=== PATIENT | female | born 1955 | race Caucasian/White ===

== ENCOUNTER 2022-11-15 08:56 | Outpatient (OUT) | payer MEDICARE, OTHER, SELFPAY ==
--- NOTE | 2022-11-15 09:09 | US_ITS ---
[address] [address] Patient Name: ANNE MCFADDEN MRN: [id number] date: 1955 Sex: F Assigned Patient Location: US Current Patient Location: US Accession/Order Number: [id number] Exam Date: 11/15/2022 09:09 Report Date: 11/15/2022 10:19 At the request of: KERRI LUGO Procedure: US right upper quadrant EXAMINATION: US right upper quadrant HISTORY: Elevated Alkaline Phosphate Level R74.8 , chronic right upper quadrant pain COMPARISON: CT chest abdomen pelvis 08/05/2017 TECHNIQUE: Transabdominal evaluation of the right upper quadrant. FINDINGS: LIVER: Normal size and echotexture. Color Doppler demonstrates patent hepatic veins. PORTAL VEIN: Duplex Doppler demonstrates normal hepatopetal flow pattern with flow velocity averaging 26 cm/s. GALLBLADDER: Cholecystectomy. BILIARY: No abnormal dilation or stones. Common bile duct diameter is within normal limits. PANCREASE: No visible mass, abnormal atrophy, or duct dilation. KIDNEY: No hydronephrosis. No visible mass or stones. Size: 8.9 x 3.8 x 4.5 cm IMPRESSION: 1. No acute or suspicious findings to account for patient's symptoms. 2. Prior cholecystectomy. Electronically authenticated by: HUBER PAYTON Date: 11/15/2022 10:19
== END 2022-11-15 08:57 ==
LOC: US 09:02
PROVIDERS: PCP Nurse Practitioner; Visit Provider Nurse Practitioner
DX: R74.8 Abnormal levels of other serum enzymes (principal); Z90.49 Acquired absence of other specified parts of digestive tract
CPT/HCPCS: 76705

== ENCOUNTER 2023-05-23 11:47 | Emergency (ER) | payer MEDICARE, OTHER, SELFPAY ==
[2023-05-23 11:54] VITALS: BP 135/83; PULSE 69; RESP 18; TEMP 36.8; O2SAT 97; BMI 23.5
--- NOTE | 2023-05-23 12:03 | XR_ITS ---
The [address] [address] Patient Name: ANNE MCFADDEN MRN: [id number] date: 1955 Sex: F Assigned Patient Location: ER Current Patient Location: ER Accession/Order Number: [id number] Exam Date: 05/23/2023 12:12 Report Date: 05/23/2023 12:36 At the request of: SALAS POST Procedure: XR chest 1V EXAM: XR chest 1V at 1223 hours HISTORY: flu like symptoms for 2 days. COMPARISON: None. TECHNIQUE: AP upright portable chest x-ray FINDINGS: The heart is not enlarged and the vasculature is not distended. No acute infiltrate, effusion or pneumothorax is identified. The osseous structures are grossly intact. XR/XR chest 1V IMPRESSION: No acute infiltrate or evidence of cardiac decompensation. Direct comparison with a previous study would be helpful in determining the chronicity of these findings. Electronically authenticated by: DILSHAD KONG Date: 05/23/2023 12:36
--- NOTE | 2023-05-23 12:41 | ED.WEAKNESS1 ---
HPI - Weakness General Chief complaint: Weakness Stated complaint: FLU SYMPTOMS/CHEST PAIN/ SHORTNESS OF BREATH Time Seen by Provider: 05/23/23 12:41 Source: patient Mode of arrival: walk-in Limitations: no limitations Related Data Allergies Allergy/AdvReac Type Severity Reaction Status Date / Time Penicillins AdvReac Intermediate Verified 05/23/23 11:54 PFSH PFSH Social History Smoking status: Never smoker Exam Constitutional Vital Signs, click to edit/add: Last Vital Signs Temp 98.3 F 05/23/23 11:54 Pulse 69 05/23/23 11:54 Resp 18 05/23/23 11:54 BP 135/83 05/23/23 11:54 Pulse Ox 97 05/23/23 11:54 Course Vital Signs Vital signs: Vital Signs Temperature 98.3 F 05/23/23 11:54 Pulse Rate 69 05/23/23 11:54 Respiratory Rate 18 05/23/23 11:54 Blood Pressure 135/83 05/23/23 11:54 Pulse Oximetry 97 05/23/23 11:54 Temperature 98.3 F 05/23/23 11:54 Pulse Rate 69 05/23/23 11:54 Respiratory Rate 18 05/23/23 11:54 Blood Pressure 135/83 05/23/23 11:54 Pulse Oximetry 97 05/23/23 11:54 Discharge Plan Discharge Chief Complaint: Weakness Clinical Impression: Viremia Patient Disposition: Home, Self-Care Time of Disposition Decision: 12:42 Instructions: Viral Syndrome (ED) Additional Instructions: fluids, rest, fever reducers as discussed Stand Alone Forms: Portal Instructions Referrals: Yaritza Mueller NP [Primary Care Provider] - 1 week Discharge Date/Time: 05/23/23 13:14
== END 2023-05-23 13:14 | disposition home or self-care (01) ==
PROVIDERS: Emergency Provider Emergency Medicine Emergency Medical Services; PCP Nurse Practitioner
DX: B34.9 Viral infection, unspecified (principal)
CPT/HCPCS: 71045; 99283

== ENCOUNTER 2023-06-25 12:39 | Outpatient (OUT) | payer MEDICARE, OTHER, SELFPAY ==
--- OUTSIDE RECORDS SUMMARY | 2023-06-25 12:43 | XMS_ITS | CCD ---
Author Name Unknown Address [address] [place] [address] Organization [facility] Care Team Providers Care Hop Farmer Name Role Phone VICTORIA BURR Unavailable Unavailable PAVLOCK, YESSY MEJIA Unavailable Unavailable FANVICTORIA MCCLELLAND Unavailable Unavailable PAVLOCK, YESSY MEJIA Unavailable Unavailable PAN SANDERSON Primary Care Physician Nori Odonnell Unavailable Unavailable AICHHOLKERRI Tomlinson Primary Care Physician Wilmer Patino Unavailable Pocos, DO Cas Joe Referring Unavailable Pocos, DO Cas Joe Attending Unavailable Pocos, DO Cas Joe Admitting Unavailable Pocos, DO Cas Joe Admitting Unavailable Pocos, DO Cas Joe Referring Unavailable Pocos, DO Cas Joe Attending Unavailable KIMI, Jewels Consulting Unavailable KIMI, Jewels Consulting Unavailable KIMI, Jewels Consulting Unavailable KIMI, Jewels Consulting Unavailable KIMI, Jewels Consulting Unavailable KIMI, Jewels Consulting Unavailable KIMI, Jewels Consulting Unavailable KIMI, Jewels Consulting Unavailable KIMI, Jewels Consulting Unavailable KIMI, Jewels Consulting Unavailable Pocos, DO Cas Joe Admitting Unavailable Pocos, DO Cas Joe Referring Unavailable Pocos, DO Cas Joe Attending Unavailable AICHHOLZ, [place] ROUTEMAN KERRI Consulting Unavailable AICHHOLZ, [place] ROUTEMAN KERRI Primary Care Unavailable AICHHOLZ, [place] ROUTEMAN KERRI Admitting Unavailable AICHHOLZ, [place] ROUTEMAN KERRI Attending Unavailable AICHHOLZ, [place] ROUTEMAN KERRI Consulting Unavailable AICHHOLZ, [place] ROUTEMAN KERRI Primary Care Unavailable AICHHOLZ, [place] ROUTEMAN KERRI Admitting Unavailable AICHHOLZ, [place] ROUTEMAN KERRI Attending Unavailable AICHHOLZ, [place] ROUTEMAN KERRI Consulting Unavailable AICHHOLZ, [place] ROUTEMAN KERRI Primary Care Unavailable AICHHOLZ, [place] ROUTEMAN KERRI Admitting Unavailable AICHHOLZ, [place] ROUTEMAN KERRI Attending Unavailable AICHHOLZ, [place] ROUTEMAN KERRI Consulting Unavailable AICHHOLZ, [place] ROUTEMAN KERRI Primary Care Unavailable AICHHOLZ, [place] ROUTEMAN KERRI Admitting Unavailable AICHHOLZ, [place] ROUTEMAN KERRI Attending Unavailable AICHHOLZ, [place] ROUTEMAN KERRI Primary Care Unavailable DR CAS BAIG V Consulting Unavailable AICHHOLZ, [place] ROUTEMAN KERRI Admitting Unavailable AICHHOLZ, [place] ROUTEMAN KERRI Attending Unavailable AICHHOLZ, [place] ROUTEMAN KERRI Consulting Unavailable Allergies Allergy Classification Reported Allergen(s) Allergy Type Date of Onset Reaction(s) Facility (7 sources) Codeine; Translations: [CODEINE] Drug Allergy 7 nausea, vomiting [facility] (1 source) Penicillins; Translations: [PENICILLINS] Propensity to adverse reactions to drug (disorder) 7 [facility] (5 sources) Penicillin; Translations: [penicillin] Drug Allergy [facility] (1 source) Penicillin G Drug Allergy [facility] [employer] Other Medications Current Medications Medication Drug Class(es) Dates Sig (Normalized) Sig (Original) ashwaganda/dev root (3 sources) Start: 09-15-2021 ashwaganda/dev root ashwaganda/dev root, Oral, Daily Start Date: 09/15/21 Status: Ordered aspirin 81 mg delayed release oral tablet (2 sources) Platelet Aggregation Inhibitor, Nonsteroidal Anti-inflammatory Drug Start: 09-19-2021 Aspirin 81 mg Tab-EC 81 mg = 1 tab(s), Oral, BIDPC, # 60 tab(s), Refills(s) 0, Pharmacy: [facility] [facility], 170, cm, 09/18/21 6:21:00 EDT, Height/Length Dosing, 73, kg, 09/18/21 6:21:00 EDT, Weight Dosing Start Date: 09/19/21 Status: Ordered Start: 09-19-2021 Aspirin 81 mg Tab-EC 81 mg = 1 tab(s), Oral, BIDPC, # 60 tab(s), Refills(s) 0, Pharmacy: [facility] [facility] [address] 170, cm, 09/18/21 6:21:00 EDT, Height/Length Dosing, 73, kg, 09/18/21 6:21:00 EDT, Weight Dosing Start Date: 09/19/21 Status: Ordered cannabidiol (2 sources) Start: 09-15-2021 cannabidiol Oral, Daily, Prophylaxis Start Date: 09/15/21 Status: Ordered Cannabidiol (1 source) Start: 09-15-2021 cannabidiol Oral, Daily, Prophylaxis Start Date: 09/15/21 Status: Ordered docusate sodium 100 mg oral capsule (2 sources) Start: 09-19-2021 take 1 capsule by mouth twice daily as needed for constipation Colace 100 mg Cap 100 mg = 1 cap(s), Oral, BID, PRN for constipation, # 40 cap(s), Refills(s) 0, Pharmacy: [address], 170, cm, 09/18/21 6:21:00 EDT, Height/Length Dosing, 73, kg, 09/18/21 6:21:00 EDT, Weight Dosing Start Date: 09/19/21 Status: Ordered doxycycline monohydrate 100 mg oral capsule (1 source) Tetracycline-cla ss Drug Start: 05-02-2021 take 1 capsule by mouth every twelve hours Doxycycline Monohydrate 100 MG 1 capsule Orally every 12 hrs for 10 days Apr, Active Fish Oils (3 sources) Start: 09-15-2021 take 1000 mg by mouth once daily Fish Oil 1,000 mg, Oral, Daily, Refill(s) 0, Prophylaxis Start Date: 09/15/21 Status: Ordered Hydrochlorothiazide-2 5 mg 25 mg (1 source) take 1 tablet by mouth once daily Hydrochlorothiazide- 25 mg 25 mg 1 tablet Orally Once a day Active hydroxychloroquine sulfate 200 mg oral tablet (4 sources) Antimalarial, Antirheumatic Agent Start: 09-15-2021 take 1 tablet by mouth once daily hydroxychloroquine 200 mg Tab 200 mg = 1 tab(s), Oral, Daily, Refills(s) 0, Arthritis Start Date: 09/15/21 Status: Ordered Plaquenil 200 MG as directed Orally Active lamoTRIgine 200 mg oral tablet (4 sources) Mood Stabilizer, Anti-epileptic Agent Start: 09-15-2021 take 1 tablet by mouth twice daily lamotrigine 200 mg Tab 200 mg = 1 tab(s), Oral, BID, Refills(s) 0, Other (see comment) Start Date: 09/15/21 Status: Ordered LaMICtal 200 MG Orally bid for 30 day(s) Active magnesium hydroxide 80 mg/ml oral suspension (2 sources) Start: 09-20-2021 take 2.4 g by mouth twice daily magnesium hydroxide 8% Oral Susp 30 mL 2.4 gm, 30 mL, Oral, BID Constipation, Refill(s) 0 Start Date: 09/20/21 Status: Ordered Start: 09-20-2021 take 2.4 g by mouth twice daily magnesium hydroxide 8% Oral Susp 30 mL 2.4 gm, 30 mL, Oral, BID Constipation, Refill(s) 0 Start Date: 09/20/21 Status: Ordered oxyCODONE hydrochloride 5 mg oral tablet (2 sources) Opioid Agonist Start: 09-19-2021 take 1 tablet by mouth every six hours as needed for pain and pain, then take 1-2 tablets by mouth every four to six hours as needed for pain and pain, then take 1 tablet by mouth every six hours as needed for pain and pain oxyCODONE 5 mg Tab 5 mg = 1 tab(s), Oral, q6hr, 1-2 po q4-6 hrs prn pain Dx: M17.12, Z96.652 Duration: 7days Disregard si po q6hr prn pain, # 40 tab(s), Refills(s) 0, Pharmacy: [address], 170, cm, 09/18/21 6:21:00 EDT, Height/Length Dosing, 73, k... Start Date: 09/19/21 Status: Ordered QUEtiapine 25 mg oral tablet (3 sources) Atypical Antipsychotic Start: 09-19-2021 SEROquel 25 mg Tab Refills(s) 0 Start Date: 09/19/21 Status: Ordered SEROquel Active turmeric extract 500 mg oral capsule (3 sources) Start: 09-15-2021 take 1 capsule by mouth once daily turmeric 500 mg oral capsule 500 mg = 1 cap(s), Oral, Daily, Refills(s) 0, Prophylaxis Start Date: 09/15/21 Status: Ordered 24 hr venlafaxine 150 mg extended release oral capsule (4 sources) Serotonin and Norepinephrine Reuptake Inhibitor Start: 09-15-2021 take 1 capsule by mouth once daily venlafaxine 150 mg Cap-ER 150 mg = 1 cap(s), Oral, Daily, Refills(s) 0, Other (see comment) Start Date: 09/15/21 Status: Ordered Start: 09-15-2021 take 1 capsule by [facility] once daily venlafaxine 150 mg Cap-ER 150 mg = 1 cap(s), Oral, Daily, Refills(s) 0, Other (see comment) Start Date: 09/15/21 Status: Ordered Effexor XR 225 M G Orally once a day for 30 day(s) Active Vitamin B Complex oral capsule (3 sources) Start: 09-15-2021 take 1 capsule by mouth once daily Vitamin B Complex oral capsule 1 cap(s), Oral, Daily, Refill(s) 0, Prophylaxis Start Date: 09/15/21 Status: Ordered Vitamin C 1000 mg oral tablet (3 sources) Start: 09-15-2021 take 1 tablet by mouth once daily Vitamin C 1000 mg oral tablet 1,000 mg = 1 tab(s), Oral, Daily, Refills(s) 0, Prophylaxis Start Date: 09/15/21 Status: Ordered Vitamin D 1000 intl units (25 mcg) Tab (3 sources) Start: 09-15-2021 take 1 tablet by mouth once daily Vitamin D 1000 intl units (25 mcg) Tab 25 mcg = 1 tab(s), Oral, Daily, Refills(s) 0, Prophylaxis Start Date: 09/15/21 Status: Ordered Completed/Discontinued Medications Medication Drug Class(es) Dates Sig (Normalized) Sig (Original) metoprolol tartrate 25 mg oral tablet (6 sources) beta-Adrenergic [place] Start: 09-21-2021 End: 09-21-2021 Lopressor 25 mg oral tablet 25 mg = 1 tab(s), Tab, Oral, Start date 09/21/21 9:00:00 EDT Start Date: 09/21/21 Stop Date: 09/21/21 Status: Completed Start: 09-20-2021 End: 09-20-2021 Lopressor 25 mg oral tablet 25 mg = 1 tab(s), Tab, Oral, Start date 09/20/21 21:00:00 EDT Start Date: 09/20/21 Stop Date: 09/20/21 Status: Completed Start: 09-15-2021 take 1 tablet by emanuel th twice daily Lopressor 25 mg oral tablet 25 mg = 1 tab(s), Oral, BID, Refills(s) 0, High blood pressure Start Date: 09/15/21 Status: Ordered Start: 09-15-2021 take 1 tablet by emanuel th once daily Lopressor 25 mg oral tablet 25 mg = 1 tab(s), Oral, Daily, Refills(s) 0, High blood pressure Start Date: 09/15/21 Status: Ordered take 1 tablet by emanuel th every twelve hours Metoprolol Tartrate 25 MG 1 tablet with food Orally Twice a day Active Problems Active Problems Problem Classification Problem Date Documented Date Episodic/Chronic Deficiency and other anemia (1 source) Iron deficiency anemia; Translations: [Iron deficiency anemia, unspecified] Onset: 09-21-2021 Episodic Esophageal disorders (1 source) Gastroesophageal reflux disease without esophagitis; Translations: [Gastro-esophageal reflux disease without esophagitis] Onset: 09-21-2021 Chronic Essential hypertension (8 sources) Hypertensive disorder; Translations: [Essential hypertension] Onset: 09-20-2021 09-15-2021 Chronic Fluid and electrolyte disorders (1 source) Hypo-osmolality and or hyponatremia; Translations: [Hypo-osmolality and hyponatremia] Onset: 09-21-2021 Episodic Mood disorders (5 sources) Bipolar disorder; Translations: [Bipolar disorder, unspecified] Onset: 09-20-2021 09-15-2021 Chronic Osteoarthritis (3 sources) Arthritis 09-15-2021 Chronic Other connective tissue disease (1 source) Artificial knee joint present; Translations: [Presence of left artificial knee joint] Onset: 09-20-2021 Chronic Other non-traumatic joint disorders (1 source) Instability of joint of left knee; Translations: [Other instability, left knee] Episodic Other screening for suspected conditions (not mental disorders or infectious disease) (9 sources) Encounter for screening mammogram for malignant neoplasm of breast; Translations: [Abnormal results of thyroid function studies] Onset: 07-19-2022 Episodic Residual codes; unclassified (1 source) Procedure carried out on subject; Translations: [Encounter for prophylactic measures, unspecified] Onset: 09-21-2021 Episodic Residual codes; unclassified (1 source) Family history of malignant neoplasm of trachea, bronchus and lung; Translations: [FAM HX MALIG NEOPLSM TRACH BRON LNG] Onset: 10-28-2022 Episodic Residual codes; unclassified (1 source) Family history of malignant neoplasm of ovary; Translations: [FAM HX MALIGNANT NEOPLASM OVARY] Onset: 10-28-2022 Episodic Thyroid disorders (4 sources) Hypothyroidism, unspecified; Translations: [HYPOTHYROIDISM UNSPECIFIED] Onset: 10-25-2022 Chronic Unclassified (3 sources) Pain of joint of knee 09-15-2021 Past or Other Problems Problem Classification Problem Date Documented Da te Episodic/Chronic Immunizations and screening for infectious disease (1 source) Contact with and (suspected) exposure to other viral communicable diseases Onset: 05-02-2021 Resolved: 05-02-2021 Episodic Other lower respiratory disease (1 source) Other specified respiratory disorders Onset: 05-02-2021 Resolved: 05-02-2021 Episodic Residual codes; unclassified (1 source) Flushing; Translations: [FLUSHING] Onset: 07-23-2022 Episodic Unclassified (1 source) Cough R05.9 Onset: 05-02-2021 Resolved: 05-02-2021 Unclassified (1 source) Exposure to 2019 novel coronavirus; Translations: [Contact with and (suspected) exposure to COVID19] Urinary tract infections (1 source) Acute urinary tract infection; Translations: [Acute UTI] Episodic Results Test Name Value Interpretation Reference Range Facility GGTon 11-07-2022 Gamma glutamyl transferase [Catalytic activity/Vol] 122 U/L Critically high 8-55 [facility] Comment on above: Performed By: #### L CAROLA GGT #### [facility] [address] [address] [address] Sarah Beth Benton LIVER PROFILEon 11-07-2022 Albumin [Mass/Vol] 3.8 g/dL Normal 3.4-5.0 [facility] Comment on above: Performed By: #### L IVMABLE GGT #### [facility] [address] [address] [address] Sarah Beth Benton Albumin/Globulin [Mass ratio] 1.0 {ratio} Normal [facility] Comment on above: Performed By: #### L CAROLA, GGT #### [facility] [address] [address] [address] Sarah Beth Benton ALP [Catalytic activity/Vol] 119 U/L Critically high 46-116 [facility] Comment on above: Performed By: #### L IVER, GGT #### [facility] [address] [address] [address] Sarah Beth Benton ALT [Catalytic activity/Vol] 27 U/L Normal 14-59 [facility] Comment on above: Performed By: #### L IVER, GGT #### [facility] [address] [address] [address] Sarah Beth Benton AST [Catalytic activity/Vol] 25 U/L Normal 15-37 [facility] Comment on above: Performed By: #### L IVER, GGT #### [facility] [address] [place] [address] Dr. Sarah Beth Benton BILI, CONJUGATED 0.1 mg/dL Normal 0.0-0.2 [facility] Comment on above: Performed By: #### L IVER, GGT #### [facility] [address] [address] [address] Sarah Beth Benton Bilirubin [Mass/Vol] 0.5 mg/dL Normal 0.2-1.0 [facility] Comment on above: Performed By: #### L IVER, GGT #### [facility] [address] [place] [address] Dr. Sarah Beth Benton Globulin (S) [Mass/Vol] 3.8 g/dL Normal [facility] Comment on above: Performed By: #### L IVER, GGT #### [facility] [address] [address] [address] Sarah Beth Benton Protein [Mass/Vol] 7.6 g/dL Normal 6.4-8.2 [facility] Comment on above: Performed By: #### L IVER, GGT #### [facility] [address] [place] [address] Dr. Sarah Beth Benton FREE T4on 10-25-2022 Free T4 [Mass/Vol] 0.76 ng/dL Normal 0.76-1.46 [facility] Comment on above: Performed By: #### L IVER, GGT #### [facility] [address] [place] [address] Dr. Sarah Beth Benton HEMOGRAM AND PLATELon 2022 Hematocrit (Bld) [Volume fraction] 35.9 % Critically low 36.0-48.0 [facility] Comment on above: Performed By: #### L IVER, GGT #### [facility] [address] [place] [address] Dr. Sarah Beth Benton Hemoglobin (Bld) [Mass/Vol] 12.3 g/dL Normal 12.0-16.0 [facility] Comment on above: Performed By: #### L IVER, GGT #### [facility] [address] [place] [address] Dr. Sarah Beth Benton MCH (RBC) [Entitic mass] 30.6 pg Normal 26.7-34.0 [facility] Comment on above: Performed By: #### L IVER, GGT #### [facility] [address] [place] [address] Dr. Sarah Beth Benton MCHC (RBC) [Mass/Vol] 34.3 g/dL Normal 29.9-35.2 [facility] Comment on above: Performed By: #### L IVER, GGT #### [facility] [address] [place] [address] Dr. Sarah Beth Benton MCV (RBC) [Entitic vol] 89.3 fL Normal 81.0-99.0 [facility] Comment on above: Performed By: #### L IVER, GGT #### [facility] [address] [place] [address] Dr. Sarah Beth Benton PLT 356 103/ul Normal 150-450 [facility] Comment on above: Performed By: #### L IVER, GGT #### [facility] [address] [place] [address] Dr. Sarah Beth Benton RBC 4.02 106/ul Critically low 4.20-5.40 [facility] Comment on above: Performed By: #### L IVER, GGT #### [facility] [address] [address] [address] Sarah Beth Benton WBC 5.9 103/ul Normal 4.0-11.0 [facility] Comment on above: Performed By: #### L CAROLA GGT #### [facility] [address] [place], [place] [address] Dr. Sarah Beth Benton MG MAMM SCREEN 3D DOUG CADon 10-25-2022 MG MAMM SCREEN 3D DOUG CAD Patient: ANNE KEMP Exam Date: 10/25/2022 : 1955 Gender:F Ordering : MATT KERRI [place] ROUTEMAN Admission #: [id number] Family : Order #: [id number] CLICK HERE TO VIEW EXAM RADIOLOGY REPORT PROCEDURE: MAMMOGRAM SCREENING 3D BILATERAL CAD COMPARISON: DIGITIZED_MAMMO, 05/31/2010. MG MAMM SCREEN DOUG W CAD, 03/03/2019. INDICATIONS: Screening mammography Calculator Name NCI Breast Cancer Risk Assessment Tool 5 Year Breast Cancer Risk 1.50% Lifetime Breast Cancer Risk 5.20% Personal Breast Cancer No Personal Ovarian Cancer No Treatments None Family Cancers Sister with ovarian cancer at age 55; Father with lung cancer at age 69. LOCATION: [facility] BREAST COMPOSITION: Scattered areas fibroglandular density. FINDINGS: DIAGNOSTIC CATEGORY 1--NEGATIVE. NO CHANGE FROM COMPARISON ASSESSMENT. Scattered benign-appearing calcifications are present. RIGHT BREAST: No significant suspicious finding. LEFT BREAST: No significant suspicious finding. RECOMMENDATIONS: ROUTINE MAMMOGRAM AND CLINICAL EVALUATION IN 12 MONTHS. PLEASE NOTE: A NORMAL MAMMOGRAM DOES NOT EXCLUDE THE POSSIBILITY OF BREAST CANCER. A CLINICALLY SUSPICIOUS PALPABLE LUMP SHOULD BE BIOPSIED. Dictated by: Cas Baig MD on 10/26/2022 at 12:05 Approved by: Cas Baig MD on 10/26/2022 at 12:06 Normal [facility] PROF 14(COMP METB)on 023 Albumin [Mass/Vol] 3.8 g/dL Normal 3.4-5.0 [facility] Comment on above: Performed By: #### P THINT #### [facility] [address] [address] [address] Sarah Beth Benton Albumin/Globulin [Mass ratio] 1.0 {ratio} Normal [facility] Comment on above: Performed By: #### P THINT #### [facility] [address] [address] [address] Sarah Beth Benton ALP [Catalytic activity/Vol] 139 U/L Critically high 46-116 [facility] Comment on above: Performed By: #### P THINT #### [facility] [address] [address] [address] Sarah Beth Benton ALT [Catalytic activity/Vol] 29 U/L Normal 14-59 [facility] Comment on above: Performed By: #### P THINT #### [facility] [address] [address] [address] Sarah Beth Benton Anion gap [Moles/Vol] 10.2 mmol/L Normal [facility] Comment on above: Performed By: #### P THINT #### [facility] [address] [address] [address] Sarah Beth Benton AST [Catalytic activity/Vol] 23 U/L Normal 15-37 [facility] Comment on above: Performed By: #### P THINT #### [facility] [address] [address] [address] Sarah Beth Benton Bilirubin [Mass/Vol] 0.3 mg/dL Normal 0.2-1.0 [facility] Comment on above: Performed By: #### P THINT #### [facility] [address] [address] [address] Sarah Beth Benton Calcium [Mass/Vol] 9.3 mg/dL Normal 8.5-10.1 [facility] Comment on above: Performed By: #### P THINT #### [facility] [address] [address] [address] Sarah Beth Benton Chloride [Moles/Vol] 98 mmol/L Normal 98-107 [facility] Comment on above: Performed By: #### P THINT #### [facility] [address] [address] [address] Sarah Beth Benton CO2 [Moles/Vol] 30.7 mmol/L Normal 21.0-32.0 [facility] Comment on above: Performed By: #### P THINT #### [facility] [address] [address] [address] Sarah Beth Benton Creatinine [Mass/Vol] 0.86 mg/dL Normal 0.55-1.02 [facility] Comment on above: Performed By: #### P THINT #### [facility] [address] [address] [address] Sarah Beth Benton EGFR-AF ECUADOREAN >60 Normal >=60 [facility] Comment on above: Performed By: #### P THINT #### [facility] [address] [address] [address] Sarah Beth Benton EGFR-NON AF ECUADOREAN >60 Normal >=60 [facility] Comment on above: Performed By: #### P THINT #### [facility] [address] [place] [address] Dr. Sarah Beth Benton Globulin (S) [Mass/Vol] 3.8 g/dL Normal [facility] Comment on above: Performed By: #### P THINT #### [facility] [address] [place] [address] Dr. Sarah Beth Benton Glucose [Mass/Vol] 89 mg/dL Normal 74-106 [facility] Comment on above: Performed By: #### P THINT #### [facility] [address] [place] [address] Dr. Sarah Beth Benton Potassium [Moles/Vol] 3.9 mmol/L Normal 3.5-5.1 [facility] Comment on above: Performed By: #### P THINT #### [facility] [address] [address] [address] Sarah Beth Benton Protein [Mass/Vol] 7.6 g/dL Normal 6.4-8.2 [facility] Comment on above: Performed By: #### P THINT #### [facility] [address] [place] [address] Dr. Sarah Beth Benton Sodium [Moles/Vol] 135 mmol/L Critically low 136-145 [facility] Comment on above: Performed By: #### P THINT #### [facility] [address] [address] [address] Sarah Beth Benton Urea nitrogen [Mass/Vol] 17.0 mg/dL Normal 7.0-18.0 [facility] Comment on above: Performed By: #### P THINT #### [facility] [address] [place] [address] Dr. Sarah Beth Benton Urea nitrogen/Creatinine [Mass ratio] 19.8 mg/mg Normal [facility] Comment on above: Performed By: #### P THINT #### [facility] [address] [place] [address] Dr. Sarah Beth Benton TSHon 10-25-2022 TSH 2.754 uIU/mL Normal 0.358-3.[address] [facility] Comment on above: Performed By: #### P THINT #### [facility] [address] [place] [address] Dr. Sarah Beth Benton METANEPHRINES PLASMA FREEon 07-24-2022 Metanephrine, Pl 17.5 pg/mL Normal 0.0-88.0 [facility] Comment on above: Performed By: #### M ETANPF #### [facility] [address] [place] [address] Dr. Sarah Beth Benton Normetanephrine, Pl 90.0 pg/mL Normal 0.0-285.2 [facility] Comment on above: Performed By: #### M ETANPF #### [facility] [address] [place] [address] Dr. Sarah Beth Benton ACTH, PLASMAon 07-20-2022 ACTH, Plasma 38.6 pg/mL Normal 7.2-63.3 [facility] Comment on above: Result Comment: ACTH reference interval for samples collected between 7 and 10 AM. Performed By: #### P THINT #### [facility] [address] [place] [address] Dr. Sarah Bteh Benton THYROID ANTIBODIESon 023 Thyroglobulin Antibody <1.0 Normal 0.0-0.9 [facility] Comment on above: Result Comment: Thyr oglobulin Antibody measured by [employer] Methodology Performed By: #### L IVER, GGT #### [facility] [address] [place] [address] Dr. Sarah Beth Benton Thyroid Peroxidase (TPO) Ab <9 Normal 0-34 [facility] Comment on above: Performed By: #### L IVER, GGT #### [facility] [address] [place] [address] Dr. Sarah Beth Benton FREE T3on 07-19-2022 FREE T3 2.27 pg/mlL Normal 2.18-3.98 [facility] Comment on above: Performed By: #### L IVER, GGT #### [facility] [address] [place] [address] Dr. Sarah Beth Benton FREE T4on 07-19-2022 Free T4 [Mass/Vol] 0.72 ng/dL Critically low 0.76-1.46 [facility] Comment on above: Performed By: #### P THINT #### [facility] [address] [place] [address] Dr. Sarah Beth Benton MAGNESIUMon 07-19-2022 Magnesium [Mass/Vol] 2.4 mg/dL Normal 1.8-2.4 [facility] Comment on above: Performed By: #### L IVER, GGT #### [facility] [address] [place] [address] Dr. Sarah Beth Benton TROPONIN, HIGH SENSITIVITYon 07-19-2022 HSTROP 5.3 pg/mL Normal 4.0-51.3 [facility] Comment on above: Result Comment: CUT- OFF POINTS HAVE BEEN ESTABLISHED BASED ON THE FOURTH UNIVERSAL DEFINITIONS OF MYOCARDIAL INFARCTION. THE UPPER REFERENCE LIMIT (URL) OF TROPONIN, DEFINED THE 99TH PERCENTILE OF cTnI DISTRIBUTION IN A REFERENCE POPULATION, HAS BEEN CONFIRMED THE DECISION THRESHOLD FOR NE DIAGNOSIS. Performed By: #### L IVER, GGT #### [facility] [address] [place] [address] Dr. Sarah Beth Benton TSHon 07-19-2022 TSH 4.556 uIU/mL Critically high 0.358-3.740 [facility] Comment on above: Performed By: #### L IVER, GGT #### [facility] [address] [place] [address] Dr. Sarah Beth Benton RENIN ACTIVITYon 07-14-2022 Renin Activity, Plasma 1.051 ng/mL/hr Normal 0.167-5.380 [facility] Comment on above: Performed By: #### P THINT #### [facility] [address] [place] [address] Dr. Sarah Beth Benton CORTISOLon 07-12-2022 Cortisol 29.1 ug/dL Normal [facility] Comment on above: Result Comment: Corby isol AM 6.2 - 19.4 Cortisol PM 2.3 - 11.9 Performed By: #### L IVER, GGT #### [facility] [address] [place] [address] Dr. Sarah Beth Benton PTH INTACTon 07-12-2022 PTH, Intact 29 pg/mL Normal 15-65 [facility] Comment on above: Performed By: #### P THINT #### [facility] [address] [place] [address] Dr. Sarah Beth Benton CBC AUTO DIFFon 07-11-2022 BASO # 0.1 103/ul Normal 0.0-0.1 [facility] Comment on above: Performed By: #### C BC #### [facility] [address] [place] [address] Dr. Sarah Beth Benton Basophils/100 WBC (Bld) 1.1 % Normal 0.2-2.0 [facility] Comment on above: Performed By: #### C BC #### [facility] [address] [place] [address] Dr. Sarah Beth Benton EO # 0.2 103/ul Normal 0.0-0.7 [facility] Comment on above: Performed By: #### C BC #### [facility] [address] [place] [address] Dr. Sarah Beth Benton Eosinophils/100 WBC (Bld) 3.2 % Normal 0.9-7.0 [facility] Comment on above: Performed By: #### C BC #### [facility] [address] [place] [address] Dr. Sarah Beth Benton Erythrocyte distribution width (RBC) [Ratio] 12.7 % Normal 11.0-15.0 [facility] Comment on above: Performed By: #### C BC #### [facility] [address] [place] [address] Dr. Sarah Beth Benton Hematocrit (Bld) [Volume fraction] 39.2 % Normal 36.0-48.0 [facility] Comment on above: Performed By: #### C BC #### [facility] [address] [place] [address] Dr. Sarah Beth Benton Hemoglobin (Bld) [Mass/Vol] 12.8 g/dL Normal 12.0-16.0 [facility] Comment on above: Performed By: #### C BC #### [facility] [address] [place] [address] Dr. Sarah Beth Benton IG # 0.01 10e3/ul Normal 0.00-0.03 [facility] Comment on above: Performed By: #### C BC #### [facility] [address] [place] [address] Dr. Sarah Beth Benton IG % 0.2 % Normal 0.0-0.5 [facility] Comment on above: Performed By: #### C BC #### [facility] [address] [place] [address] Dr. Sarah Beth Benton LYMPH # 1.9 103/ul Normal 1.2-3.8 [facility] Comment on above: Performed By: #### C BC #### [facility] [address] [place] [address] Dr. Sarah Beth Benton Lymphocytes/100 WBC (Bld) 41.1 % Normal 20.5-60.0 [facility] Comment on above: Performed By: #### C BC #### [facility] [address] [place] [address] Dr. Sarah Beth Benton MANUAL DIFF REQ NO Normal [facility] Comment on above: Performed By: #### C BC #### [facility] [address] [place] [address] Dr. Sarah Beth Benton MCH (RBC) [Entitic mass] 30.2 pg Normal 26.7-34.0 [facility] Comment on above: Performed By: #### C BC #### [facility] [address] [address] [address] Sarah Beth Benton MCHC (RBC) [Mass/Vol] 32.7 g/dL Normal 29.9-35.2 [facility] Comment on above: Performed By: #### C BC #### [facility] [address] [place] [address] Dr. Sarah Beth Benton MCV (RBC) [Entitic vol] 92.5 fL Normal 81.0-99.0 [facility] Comment on above: Performed By: #### C BC #### [facility] [address] [place] [address] Dr. Sarah Beth Benton MONO # 0.7 103/ul Normal 0.3-0.8 [facility] Comment on above: Performed By: #### C BC #### [facility] [address] [place] [address] Dr. Sarah Beth Benton Monocytes/100 WBC (Bld) 14.0 % Critically high 1.7-12.0 [facility] Comment on above: Performed By: #### C BC #### [facility] [address] [place] [address] Dr. Sarah Beth Benton NEUT # 1.9 103/ul Normal 1.4-6.5 [facility] Comment on above: Performed By: #### C BC #### [facility] [address] [place] [address] Dr. Sarah Beth Benton Neutrophils/100 WBC (Bld) 40.4 % Critically low 43.0-75.0 [facility] Comment on above: Performed By: #### C BC #### [facility] [address] [place] [address] Dr. Sarah Beth Benton Platelet mean volume (Bld) [Entitic vol] 8.2 fL Critically low 9.5-13.5 [facility] Comment on above: Performed By: #### C BC #### [facility] [address] [place] [address] Dr. Sarah Beth Benton PLT 357 103/ul Normal 150-450 [facility] Comment on above: Performed By: #### C BC #### [facility] [address] [place] [address] Dr. Sarah Beth Benton RBC 4.24 106/ul Normal 4.20-5.40 [facility] Comment on above: Performed By: #### C BC #### [facility] [address] [place] [address] Dr. Sarah Beth Benton WBC 4.7 103/ul Normal 4.0-11.0 [facility] Comment on above: Performed By: #### C BC #### [facility] [address] [place] [address] Dr. Sarah Beth Benton CPKon 07-11-2022 CK [Catalytic activity/Vol] 77 U/L Normal 26-192 [facility] Comment on above: Performed By: #### C MP, TSH, CK, LIPID #### [facility] [address] [place] [address] Dr. Sarah Beth Benton FREE T4on 07-11-2022 Free T4 [Mass/Vol] 0.75 ng/dL Critically low 0.76-1.46 [facility] Comment on above: Performed By: #### L IVER, GGT #### [facility] [address] [place] [address] Dr. Sarah Beth Benton LIPID PROFILEon 07-11-2022 CHOL-HDL RATIO NORM SEE BELOW Normal [facility] Comment on above: Result Comment: 3.3 - 4.4 LOW RISK 4.4 - 7.1 AVERAGE RISK 7.1 - 11.0 MODERATE RISK >11.0 HIGH RISK Performed By: #### C MP, TSH, CK, LIPID #### [facility] [address] [place] [address] Dr. Sarah Beth Benton Cholesterol [Mass/Vol] 292 mg/dL Critically high <=200 [facility] Comment on above: Performed By: #### C MP, TSH, CK, LIPID #### [facility] [address] [place] [address] Dr. Sarah Beth Benton Cholesterol in HDL [Mass/Vol] 67 mg/dL Critically high 40-60 [facility] Comment on above: Performed By: #### C MP, TSH, CK, LIPID #### [facility] [address] [address] [address] Sarah Beth Benton Cholesterol in LDL [Mass/Vol] 201.6 mg/dL Normal [facility] Comment on above: Performed By: #### C MP, TSH, CK, LIPID #### [facility] [address] [address] [address] Sarah Beth Benton Cholesterol.total/Ch olesterol in HDL [Mass ratio] 4.4 {ratio} Normal [facility] Comment on above: Performed By: #### C MP, TSH, CK, LIPID #### [facility] [address] [address] [address] Sarah Beth Benton HDL NORMAL > or = 60 mg/dl - LO W CARDIOVASCULAR RISK <40 mg/dl - HIGH CARDIOVASCULAR RISK Normal [facility] Comment on above: Performed By: #### C MP, TSH, CK, LIPID #### [facility] [address] [address] [address] Sarah Beth Benton LDL CALC NORMAL SEE BELOW Normal [facility] Comment on above: Result Comment: <100 mg/dl OPTIMAL 100 - 129 mg/dl NEAR OR ABOVE OPTIMAL 130 - 159 mg/dl BORDERLINE HIGH 160 - 189 mg/dl HIGH >190 mg/dl VERY HIGH Performed By: #### C MP, TSH, CK, LIPID #### [facility] [address] [address] [address] Sarah Beth Benton Triglyceride [Mass/Vol] 117 mg/dL Normal <=150 [facility] Comment on above: Performed By: #### C MP, TSH, CK, LIPID #### [facility] [address] [address] [address] Sarah Beth Benton VLDL CALC 23.4 mg/dL Normal [facility] Comment on above: Performed By: #### C MP, TSH, CK, LIPID #### [facility] [address] [place] [address] Dr. Sarah Beth Benton MICROALBUMIN, RAND URon 02-0 mALB 1.6 mg/L Normal <=30.0 [facility] Comment on above: Performed By: #### P THINT #### [facility] [address] [place] [address] Dr. Sarah Beth Benton PROF 14(COMP METB)on 023 Albumin [Mass/Vol] 4.0 g/dL Normal 3.4-5.0 [facility] Comment on above: Performed By: #### C MP, TSH, CK, LIPID #### [facility] [address] [place] [address] Dr. Sarah Beth Benton Albumin/Globulin [Mass ratio] 1.1 {ratio} Normal [facility] Comment on above: Performed By: #### C MP, TSH, CK, LIPID #### [facility] [address] [place] [address] Dr. Sarah Beth Benton ALP [Catalytic activity/Vol] 109 U/L Normal 46-116 [facility] Comment on above: Performed By: #### C MP, TSH, CK, LIPID #### [facility] [address] [place] [address] Dr. Sarah Beth Benton ALT [Catalytic activity/Vol] 28 U/L Normal 14-59 [facility] Comment on above: Performed By: #### C MP, TSH, CK, LIPID #### [facility] [address] [place] [address] Dr. Sarah Beth Benton Anion gap [Moles/Vol] 11.7 mmol/L Normal [facility] Comment on above: Performed By: #### C MP, TSH, CK, LIPID #### [facility] [address] [place] [address] Dr. Sarah Beth Benton AST [Catalytic activity/Vol] 28 U/L Normal 15-37 [facility] Comment on above: Performed By: #### C MP, TSH, CK, LIPID #### [facility] [address] [place] [address] Dr. Sarah Beth Benton Bilirubin [Mass/Vol] 0.4 mg/dL Normal 0.2-1.0 [facility] Comment on above: Performed By: #### C MP, TSH, CK, LIPID #### [facility] [address] [place] [address] Dr. Sarah Beth Benton Calcium [Mass/Vol] 9.4 mg/dL Normal 8.5-10.1 [facility] Comment on above: Performed By: #### C MP, TSH, CK, LIPID #### [facility] [address] [address] [address] Sarah Beth Benton Chloride [Moles/Vol] 100 mmol/L Normal 98-107 [facility] Comment on above: Performed By: #### C MP, TSH, CK, LIPID #### [facility] [address] [address] [address] Sarah Beth Benton CO2 [Moles/Vol] 32.0 mmol/L Normal 21.0-32.0 [facility] Comment on above: Performed By: #### C MP, TSH, CK, LIPID #### [facility] [address] [place] [address] Dr. Sarah Beth Benton Creatinine [Mass/Vol] 0.85 mg/dL Normal 0.55-1.02 [facility] Comment on above: Performed By: #### C MP, TSH, CK, LIPID #### [facility] [address] [place] [address] Dr. Sarah Beth Benton EGFR-AF ECUADOREAN >60 Normal >=60 [facility] Comment on above: Performed By: #### C MP, TSH, CK, LIPID #### [facility] [address] [place] [address] Dr. Sarah Beth Benton EGFR-NON AF ECUADOREAN >60 Normal >=60 [facility] Comment on above: Performed By: #### C MP, TSH, CK, LIPID #### [facility] [address] [place] [address] Dr. Sarah Beth Benton Globulin (S) [Mass/Vol] 3.7 g/dL Normal [facility] Comment on above: Performed By: #### C MP, TSH, CK, LIPID #### [facility] [address] [place] [address] Dr. Sarah Beth Benton Glucose [Mass/Vol] 79 mg/dL Normal 74-106 [facility] Comment on above: Performed By: #### C MP, TSH, CK, LIPID #### [facility] [address] [place] [address] Dr. Sarah Beth Benton Potassium [Moles/Vol] 4.7 mmol/L Normal 3.5-5.1 [facility] Comment on above: Performed By: #### C MP, TSH, CK, LIPID #### [facility] [address] [place] [address] Dr. Sarah Beth Benton Protein [Mass/Vol] 7.7 g/dL Normal 6.4-8.2 [facility] Comment on above: Performed By: #### C MP, TSH, CK, LIPID #### [facility] [address] [place] [address] Dr. Sarah Beth Benton Sodium [Moles/Vol] 139 mmol/L Normal 136-145 [facility] Comment on above: Performed By: #### C MP, TSH, CK, LIPID #### [facility] [address] [place] [address] Dr. Sarah Beth Benton Urea nitrogen [Mass/Vol] 16.0 mg/dL Normal 7.0-18.0 [facility] Comment on above: Performed By: #### C MP, TSH, CK, LIPID #### [facility] [address] [place] [address] Dr. Sarah Beth Benton Urea nitrogen/Creatinine [Mass ratio] 18.8 mg/mg Normal [facility] Comment on above: Performed By: #### C MP, TSH, CK, LIPID #### [facility] [address] [place] [address] Dr. Sarah Beth Benton TSHon 07-11-2022 TSH 5.279 uIU/mL Critically high 0.358-3.740 [facility] Comment on above: Performed By: #### C MP, TSH, CK, LIPID #### [facility] [address] [place] [address] Dr. Sarah Beth Benton UA RANDOM W/MICROSCOPICon BACTERIA NONE SEEN Normal NONE SEEN [facility] Comment on above: Performed By: #### U AMIC #### [facility] [address] [place] [address] Dr. Saarh Beth Benton Bilirubin Ql (U) Negative Normal NEGATIVE [facility] Comment on above: Performed By: #### U AMIC #### [facility] [address] [address] [address] Sara hBeth Benton CAST NONE SEEN Normal NONE SEEN [facility] Comment on above: Performed By: #### U AMIC #### [facility] [address] [address] [address] Sarah Beth Benton Clarity (U) CLEAR Normal CLEAR [facility] Comment on above: Performed By: #### U AMIC #### [facility] [address] [address] [address] Sarah Beth Benton Color (U) YELLOW Normal YELLOW [facility] Comment on above: Performed By: #### U AMIC #### [facility] [address] [place] [address] Dr. Sarah Beth Benton Crystals LM Nom (Urine sed) NONE SEEN Normal NONE SEEN [facility] Comment on above: Performed By: #### U AMIC #### [facility] [address] [address] [address] Sarah Beth Benton Epithelial cells LM Ql (Urine sed) FEW Abnormal NONE SEEN /RARE [facility] Comment on above: Performed By: #### U AMIC #### [facility] [address] [address] [address] Sarah Beth Benton Glucose Ql (U) Negative Normal NEGATIVE [facility] Comment on above: Performed By: #### U AMIC #### [facility] [address] [address] [address] Sarah Beth Benton Hemoglobin Ql (U) Negative Normal NEGATIVE [facility] Comment on above: Performed By: #### U AMIC #### [facility] [address] [address] [address] Sarah Beth Benton Ketones Ql (U) Negative Normal NEGATIVE [facility] Comment on above: Performed By: #### U AMIC #### [facility] [address] [address] [address] Sarah Beth Benton LEUKOCYTES Negative Normal NEGATIVE [facility] Comment on above: Performed By: #### U AMIC #### [facility] [address] [address] [address] Sarah Beth Benton MUCOUS SMALL Abnormal NONE SEEN [facility] Comment on above: Performed By: #### U AMIC #### [facility] [address] [address] [address] Sarah Beth Benton Nitrite Ql (U) Negative Normal NEGATIVE [facility] Comment on above: Performed By: #### U AMIC #### [facility] [address] [address] [address] Sarah Beth Benton pH (U) 6.0 [pH] Normal 5-9 [facility] Comment on above: Performed By: #### U AMIC #### [facility] [address] [place] [address] Dr. Sarah Beth Benton RBC NONE SEEN Abnormal 0-2 [facility] Comment on above: Performed By: #### U AMIC #### [facility] [address] [place] [address] Dr. Sarah Beth Benton SPEC GRAVITY 1.025 Normal 1.005-<=1.[address] [place] [address] Comment on above: Performed By: #### U AMIC #### [facility] [address] [address] [address] Sarah Beth Benton UA PROTEIN Negative Normal NEGATIVE/ TRACE [facility] Comment on above: Performed By: #### U AMIC #### [facility] [address] [place] [address] Dr. Sarah Beth Benton Urobilinogen Qn (U) 0.2 {Becca'U}/dL Normal 0.2 - 1. 0 [facility] Comment on above: Performed By: #### U AMIC #### [facility] [address] [place] [address] Dr. Sarah Beth Benton WBC NONE SEEN Normal NONE SEEN [facility] Comment on above: Performed By: #### U AMIC #### [facility] [address] [place] [address] Dr. Sarah Beth Benton Insurance Correspondence Off [facility] 02-26-2022 Insurance Correspondence Office [id number]#1.00CD:1 [facility] Insurance Correspondence Office [id number]#1.00CD:1 [facility] Insurance Correspondence Off iceon 11-21-2021 Insurance Correspondence Office [id number]#1.00CD: 127 [facility] Insurance Correspondence Off iceon 11-20-2021 Insurance Correspondence Office [id number]#1.00CD :127 [facility] Preoperative Documentson Preoperative Documents [id number]#1.00C D:127 [facility] Coding Summary.on 09-29-2021 Coding Summary. CD:[id number] Gh0b Ww+PGhlYWQ+YU4EYBXmP99bx JHfzA3HX4tRGF8GXVUOIBZYK M7IYZ2apEF0QNnpQ5MrczFd VovefCWfWK85XKd0KHU6oJnq IDflvB7hnIJlJ9g1RkFlBK24 jC33CZjfRBMiWmQ4FpUllfla bWFy L5zpAnSpaUZgUxb+PHRhYmxl IHdpZHRoPScxMDAlJyBzdHls IP4mYz6fOCKkDGSobXzajQSg OiBj a1xaOTTiAGrkOC5smYisR9By qBP1ETDsf1o8Rz29mHF+PHRk JRR9wZctEDevg631AwVca0jl IDM3 bLBfVTjrMIQ6C23sf6V3LPFl DAYeCUE3rAG1nV8cxFexgvwf D1OthZXxJbZ4QOO5pWJxfS1m bGln rnervK8vNfc+L61UMK7ZTKIC KI2DOga8J3KrJplmiKD+PC90 MHBwOG83jYAtkEAwm0tezEv7 JzEw YQFzJXS5xZcxXJdzd5NvEIVw C80ijFDut7G3SYFpgAxzrTId YkYelRI7rW5cMDxneyqdb3ga dzsn Xxuhz3yfjl13jL26Y83sPUzx TYFqLRQ6CZOeWVCdrWdlay5j tF8cKv1+RIqux3snh4tznPa3 IjIw OYGebyDtfSvsRFM9w5VlAe48 B1KdzElfh9OyCso3ki51bPGq c1S7eYF8XObqRCXxkM3aHIts ZnQ6 GGPmFbYkyM62pPLuIOnvMo5s eDicqTeiHA6gJSIamgfoZGGr mN1pPOYdwQObkAstEM3qSXWo bjtm u745CiWzFLH7YBJfxYGrH4Fh iZ9rAgUdEETkFSQmW0NuhIXl SPezC358XKmoYcW1SNZtluEw Y2Fs CFEsyXfaFpK8f2H2Ut6Fp4Wh aoolIXL6ZGasWEI5HxGlKsBl SxR1L4GlJkd5MCBrkQtgXD4i J3Bh OLGdareeltokbIS0YIRuYJFk mJ71lNByADzgQf0cg8M9q648 VFGdTLZycF66Po4dfXrdULRu dCBU sA3slfkzu4ugvyiqKjWvQPZu YCx1LRw1CFIdzDttFmChTGY5 AlS7KBC0zMKkyX7ecLcnwkmm dG9w Oyc+N30vxB2kTUG3SRN1cjbi JOCwpsYuZR92NX54G7VjNbzg dGFibGU+BLHfvxSjyTrrWC1b YmFj t4kfd8RuCUtcY1SuKTBfVYnu Snt8GWGxTII0bZV4wJ4cALEg PTiab5I4dCY4J6LnmeVxbj6o b2xs RKUvCKonY72dpUVex8Z6ADCk hPZ6EHAugNosKrTxuF69Qwm+ YEWdmLgya2YhNkixm6iai8hg dGg9 CgScVIGkcbZoeWxqXQJ1b9To Jy02C70rSEoaBJMsCIWfJKNw SKKqhPbpur7icO1gLa0+PGNv bCB3 qQP1hX2mQWLiAcW1PZjxF304 EsGvdQOfMjgbt5ybp6gvvJj6 XsRlKQShbyAyaXveOSR7j2Wv Lz48 C20kMMicIJIfSLIgLAAdTCUg rTpexo4nhP6sFw6+KQ0cb4gn xa75uG24pUC+TWVcNYK1dRxt PSdw ALVxlM1hSZefPrI7NBQaBuDn zE79hWFrNOicWd7agPovoNri TB4hNBSzdmpab941HxDkx6nj IDEw rBCbLDiyNKZ2X71cr2G5ZKDw LQBwWAO0iEH5pL7elVlkwpaj bGVmdDsgdmVydGljYWwtYWxp Z246 IHRvcDsnPlBhdGllbnQgTmFt RRk7F9TjKjj4TGFtxKifHF6w rWHsCDczDg6gtSfobKrgQP4x NTBp wloyj897IyBtu7vkFXZzdWDo DVrbJKQ0A87sk0L0NNRkTHKo EBF5nDR7rT7bdVuondftdMPy dDsg xvXxuUanZVykRFsaL212CNGv sYqsPqVubuCaPOGciBO7MG12 PI97bVJgn0B4yQW2Q4AcBGSi bmct kuvdvNU0ZSXrNVGdlP65Va6d sHimKn9fLAZcXFU2MULboLUa T6EqmT8cCgHyRLPlCMZbV9Fe eHQt RXkoT459OPtdTsT6MTKoweBa X1PnLHIxwWbtZxF9b1V6Ss8D X8N5VZ28GS32uZAcp6D4dCY1 J3Bh IZGxvwiurqqdrEL7BPNjSAKh sB70Dg5ioGvfXv6wJKBhQXZ8 HCTnqNBnF8ChzO3eYbYiYUQv MDAw M2MxcRQzTSffN177JXtrCxS3 ICKuajBjT2GeZMJgnAfbThJ4 u8Q3Ak9MBSq2ES16WG69gYJf c3R5 aWL6X8QsJDBwnlzrvxibeCW8 TROpGDKtbS74Mn6nuXqmQp6o MVKyZYD8WPGozYCgS0NdlR6p OiAj NZJbMUOlM6YukTDqHBqkE777 ROvnKsW3LKBqtyYbF7AkLFJd kIfkEuB5m7T0Lo5UXGKhJI58 IFR5 rOF0DV60QC04Z1XiUaxxxHIj bGU+PHRhYmxlIHdpZHRoPScx TFZmCwJjiJfuBC9mPu4vYOEa LWNv jRblmDSiPtCpa5hoLNSiNQuh YE7iwBuoV9ZjzXR9XJTbx7x0 Tg58Q95xP9TjeHV+PGNvbCB3 aWR0 tO7jDyHmZsC3RAvxI898AdHo hFIyDsnak4mxp6lsnRt2WdS0 NFDllgIodJblRMY1v5YwTi05 Y29s IHdpZHRoPSIxNSUiIHZhbGln pq4lgX5fXy1+CSKdtFA7aFR8 kT1jFsAuKjJ8CXudR945ImGh cCIv Asyzx5emc6yicQm0HlFeVWEk dfKtaCjiQPD0f6DtLk93Y9Ew bZyak7VgEqj0po18sPTfq3H2 bGU9 T9PjDWWxqbxkpKRfrIxrRR3k DVRiavgjZUEkdV1nHVYnS6v1 TxIbEsT4RLpmF9VdasY0QUKr cHQg TBjkNCP1K74xb5K9ZSXmFTNz OQQ6dSX9iZ6mnMtrsvknvSMw wAtjwfIrzCcqWIggZFobD521 IHRv jPviHMOnpT4pUKDsoQOqdZry XP3jOIWqjqaqFz7XHWlDSXgg Ki4LSWhcuLJ+NLTjBRP4mMmr PSdw TAScmN6dJBYnY0r4IhVkLoC8 IQstZ1LdCMUnrtxjWo72zQ8x YvFuVrU3IJsrW1JwokV5TUMx cHQg WQqfWYO3R98pe5E5EXVsGZJj BTU5mRA4tW5liAyyblwywGAg hWaleqIzkXgsIQwlYPmbD158 IHRv cUroEdYyXuI6SdY6DFD9K3Rx Quz6HMLfqWiiBN9ceTVhIBdl Ah2lqIaveWnkIT7sPNEipmxv YWRk jK9oBDIrdUYrhTakFD7yWEOk zmwgx790RaEzEDM7EMAuoDQd C3NviV9rVyCzEHTyZMVrD1Af eHQt WQfyP952IFyzSnS7CJElaxRf Q4VmTZZfkIidTrS8k6S8Mz83 NiBZZWFyczwvdGQ+PHRkIHN0 eWxl YKgjPPDmdZ1qYGNpV7t6LcNp GuW1PClyJ3VcPGPovptnNa80 dB0fZfYoRcX3MFukK6CbsgA7 IDEw bGQlHPjxFSM9P97uk1G3PJXy ETIvWHK5rQU4pB2koEaqugxr bGVmdDsgdmVydGljYWwtYWxp Z246 IHRvcDsnPkZlbWFsZTwvdGQ+ WCAkXJP6oBuyBDffHSEgbE4o YREcF0y5QhRkZgP0AFpyF9Ga ZGRp dvlsHy46iP6pIbWyXeC0ZMtc A8UswtY2EVWhbNIbULcgUAX1 H94yd0S2YWLzGBZjWES2sJY4 dC1h bGlnbjogbGVmdDsgdmVydGlj ACirSXunK048XJSnpGdkDt3f c9GmqzS9zG5kWK04BB69O9Oe Pjwv dGFibGU+PHRhYmxlIHdpZHRo WCcbHUIvZdPjqCjiGL5oYs5y UVPjCJDalMyatENwMfWaj4gv YXBz AAphHP7ipRuuK3WuyDH9ZQVk e0u4Bg28T09lO0IypEW+PGNv gEK5hHA4wZ8uZpIxEeG3FMag Z249 IiFcpHYoXjesh6xox4jlhXk1 LpRxLFGeuxBkfKqySWB3u0Uy Cg12S31rCRfcOWWfSAChDDZk IHZh yUxxly4ghK5rOz5+PGNvbCB3 xKG6fA9nCzWqXsU7XOlmB586 QzOvcUGnQyugS05qT5WhtAF+ PHRy Svc2KWOamUeoKY3yoFJmNNfc Rd5qBFM8MxKxUeRsZXicM8Mi HMFqdknfrafszPC1LEUzAFPb aW47 Vj1xgXlpCg7zZJHfHUL2RPJa bPPfY6JagM5mRcEiJJWqGWUi Y6UjhQRoUAueN561TIcyXbB6 IHZl omOdR4DwJJQknTbhNrL2z9D0 Mz9YjGcfiRMtXE6aFmYlLSa1 Y6UrNgr6CRDgvUpsQT9uyMCr ZGlu Vp9atMcvdZieJF3aNBFljlqy w036OyCce6qhIMMseMYySEev KED3Q45ae7L9LMWyFLCaPOP2 dGV4 kO1hwSzchwgctRKezUgenzBy oRreDNoeBRqcZ846UFQydXkm AnJFPeh8U2UwRve0LLRvbOfj ZT0n hOUoSJxdYc8yjPejzKzrZH9w IISiucbtt980PbTqa0scIMJm eUCwMIoaDNX6Z41bf5F5OLGe MDAw VYC7mFE4uY8ryXjimiiiaFFs qGnrgtYoyNnbEOrlDAfgD424 WBJttCkbPb6GSdd4Q5GrOyl9 ZCBz uIptEK0qiPMjCXqqVt9ytLtq zLdjEX7sPJNthsqlv901JmVp j2rxBSSinZTcLUhtBJH9P83c b3I6 FJLkZXIwPBR7rVD7pK7rnTpg bjogbGVmdDsgdmVydGljYWwt JHmkC871QSBkzGukYqTbgNAz Ojwv dGQ+KA89tn66S6ItWbgeZta6 IFQeWNX4dYF4tF2bWAJiDWck g7Y0gBE2W9BfxiOylh4fi0au YXBz ZTog (more content not included)... Normal [facility] IntraOperative Documentson 0 09-27-2021 IntraOperative Documents [id number]: 127 Normal [facility] Main OR Intraoperative Recor don 09-22-2021 Main OR Intraoperative Record IntraOp Document Type FT Summary Primary Physician: Cas Severino DO Finalized Date/Time: 09/22/21 09:12:48 Pt. Name: ANNE KEMP/Sex: 1955 Female Med Rec #: [id number] Physician: Cas Severino DO Financial #: [id number] Pt. Type: O Room/Bed: N317/01 Admit/Disch: 09/19/21 08:30:31 - 09/21/21 12:20:00 Institution: Case Times FT Entry 1 Patient Times In Room 09/19/21 10:58:00 Out Room 09/19/21 13:18:00 Procedure Times Start 09/19/21 11:38:00 Stop 09/19/21 13:13:00 Anesthesia Times Start 09/19/21 10:58:00 Stop 09/19/21 13:18:00 Block Timeout w/ 09/19/21 10:05:00 Anesthesia Last Modified By: Gila Armas RN 09/19/21 13:18:18 General Comments: Block info: Thee CULLEN, Kody RN assisting. [phone], HR 64, SpO2 98% RA. Chris RN 09/22/21 Chart opened to review and send charges LRoth CSFA Case Attendance FT Entry 1 Entry 2 Entry 3 Case Attendee Danny CULLEN, Luis M Severino DO, Cas Armas CST, Lizet Hebert Role Performed WET CHAR CONVEYOR TENDER Surgeon - Primary PASTOR/SA Time In 09/19/21 10:58:00 09/19/21 10:58:00 09/19/21 10:58:00 Time Out 09/19/21 13:18:00 09/19/21 13:18:00 09/19/21 13:18:00 Procedure KNEE TOTAL ARTHROPLASTY KNEE TOTAL ARTHROPLASTY KNEE TOTAL ARTHROPLASTY REVISION(Left) REVISION(Left) REVISION(Left) Comments Last Modified By: Pawel CAMACHO, Lizet Armas RN, Gila Dover RN 09/22/21 09:09:17 09/19/21 13:24:05 09/19/21 13:24:05 Entry 4 Entry 5 Entry 6 Case Attendee Jaleesa PASTOR, José Miguel Cristobal PASTOR, Gila Villarreal RN Role Performed Scrub - Primary Staff - Other Argon Tester - Primary Time In 09/19/21 10:58:00 09/19/21 10:58:00 09/19/21 10:58:00 Time Out 09/19/21 13:18:00 09/19/21 13:18:00 09/19/21 13:18:00 Procedure KNEE TOTAL ARTHROPLASTY KNEE TOTAL ARTHROPLASTY KNEE TOTAL ARTHROPLASTY REVISION(Left) REVISION(Left) REVISION(Left) Comments Second scrub Last Modified By: Pawel RN, Gila Armas RN, Gila Dover RN 09/19/21 13:24:05 09/19/21 13:24:05 04/12/22 13:24:05 Entry 7 Case Attendee Ed ROCHA, Renetta Estrada Role Performed Staff - Other Time In 09/19/21 10:58:00 Time Out 09/19/21 13:18:00 Procedure KNEE TOTAL ARTHROPLASTY REVISION(Left) Comments OSC/ Block RN Last Modified By: Gila Armas RN 09/19/21 13:24:05 General Comments: Vijay Peralta, Fany Reps. Chris ROCHAturfgrass technician Protocols FT Pre-Care Text: Implements protective measures prior to operative or invasive procedure, confirms identity before the operative or invasive procedure, verifies operative procedure, surgical site, and laterality Entry 1 Procedure(s) KNEE TOTAL ARTHROPLASTY Patient Identity Birthday, ID Band REVISION(Left) Verified (select at Check, Patient least 2): Participation Consents / H and P Anesthesia Consent, Operative Site Present Verified HandP, Surgery/Procedure Marking Verified Consent Surgical Site Yes Laterality Verified Yes Verified Procedure Verified Yes Correct Patient Yes Position Verified Availability Equipment, Implant, Prep Dry Yes Verified (If Medication Applicable) PreOp Antibiotic Yes Time Out Luis M Delgado CRNA, Given Participants Cas Severino DO, Roth PASTOR, Jaleesa Holland PASTOR, Pawel Lincoln RN, Levar Moreland CST, Renetta Joe Time Out Complete 09/19/21 11:32:00 Outcomes Met? Yes Last Modified By: Gila Armas RN 09/19/21 11:43:57 Post-Care Text: The patient is free from signs and symptoms of injury caused by extraneous objects General Comments: Reps present for time out. Chris ROCHApicture booker Information FT Pre-Care Text: Verifies allergies Entry 1 Allergies Reviewed? Yes Allergies Reviewed Self/Patient With Outcomes Met? Yes Last Modified By: Gila Armas RN 09/19/21 11:44:09 Post-Care Text: The patient received appropriate medication(s) safely administered during the perioperative period Surgical Procedures FT Entry 1 Procedure Description Procedure KNEE TOTAL ARTHROPLASTY Modifiers Left REVISION Surgeon Description LEFT KNEE HARDWARE REMOVAL, CONVERSION TO TOTAL KNEE ARTHROPLASTY WITH SYNOVECTOMY Primary Procedure Yes Primary Surgeon PocCas souza DO Start 09/19/21 11:38:00 Stop 09/19/21 13:13:00 Anesthesia Type General Surgical Service Orthopedics Wound Class 1 - Clean Last Modified By: Gila Armas RN 09/19/21 13:24:11 General Case Data FT Pre-Care Text: Classifies surgical wound, implements aseptic technique, initiates traffic control Entry 1 Case Information OR OR 7 FT Case Level Level 6 Wound Class 1 - Clean Specialty Orthopedics ASA Class 2 Preop Diagnosis Left knee oa Postop Same As Preop Yes Postop Diagnosis Left knee oa Outcomes Met? Yes Last Modified By: Gila Armas RN 09/19/21 11:44:27 Post-Care Text: The patient is free from signs and symptoms of infection Skin Assessment (Pre Procedure) FT Pre-Care Text: Implements protective measures to prevent skin/ tissue injury due (more content not included)... Normal [facility] Auto Diffon 09-21-2021 Basophils/100 WBC (Bld) 0.0 % Normal 0.0-2.0 [facility] Comment on above: Order Comment: Order Added by Discern Expert. Performed By: #### 2 274578, 8123801, 1240715, 3314064, 4688987, [id number] ####[facility] [address] [place] [address] Basophils/Leukocytes Auto (Bld) [Pure # fraction] 0.0 E9/L Normal 0.0-0.2 [facility] Comment on above: Order Comment: Order Added by Discern Expert. Performed By: #### 2 639511, 8936461, 1132226, 4686014, 3315959, 34439847 ####[facility] [address] [place] [address] Eosinophils/100 WBC (Bld) 0.2 % Normal 0.0-8.0 [facility] Comment on above: Order Comment: Order Added by Discern Expert. Performed By: #### 2 636534, 2344105, 7935955, 0815346, 8909450, 75172187 ####[facility] [address] [place] [address] Eosinophils/Leukocyt es Auto (Bld) [Pure # fraction] 0.0 E9/L Normal 0.0-0.5 [facility] Comment on above: Order Comment: Order Added by Discern Expert. Performed By: #### 2 756395, 4897414, 7886056, 1244141, 9696098, 78541270 ####[address] [place] [address] Lymphocytes/100 WBC (Bld) 7.3 % Low 14.0-50.0 [facility] Comment on above: Order Comment: Order Added by Discern Expert. Performed By: #### 2 616900, 4529789, 5218903, 5283423, 7539259, 05913147 ####[address] [place] [address] Lymphocytes/Leukocyt es Auto (Bld) [Pure # fraction] 1.0 E9/L Normal 1.0-4.0 [facility] Comment on above: Order Comment: Order Added by Kylee Expert. Performed By: #### 2 735741, 4440478, 8954464, 6910080, 5078904, 83637452 ####[address] [address] Monocytes/100 WBC (Bld) 11.0 % Normal 4.0-14.0 [facility] Comment on above: Order Comment: Order Added by Kylee Expert. Performed By: #### 2 435327, 3294692, 6778220, 0670845, 9948643, 29602405 ####[address] [address] Monocytes/Leukocytes Auto (Bld) [Pure # fraction] 1.5 E9/L High 0.2-1.0 [facility] Comment on above: Order Comment: Order Added by Kylee Expert. Performed By: #### 2 289858, 9218463, 9032785, 2518720, 8919287, 92891316 ####[address] [address] Neutrophils/100 WBC (Bld) 81.5 % High 36.0-75.0 [facility] Comment on above: Order Comment: Order Added by Kylee Expert. Performed By: #### 2 282636, 7681341, 7246219, 9687366, 1456397, 12434853 ####[facility] [address] [place] [address] Neutrophils/Leukocyt es Auto (Bld) [Pure # fraction] 10.8 E9/L High 2.0-7.5 [facility] Comment on above: Order Comment: Order Added by Discern Expert. Performed By: #### 2 880192, 9998328, 0090638, 5840968, 5231149, 07834128 ####[facility] [address] [place] [address] BUNon 09-21-2021 Urea nitrogen [Mass/Vol] 7 mg/dL Normal 5-21 [facility] Comment on above: Performed By: #### 2 088303, 3890429, 0113697, 3843491, 8366701, 54564846 ####[address] [place] [address] CBC w/ Auto Diffon Erythrocyte distribution width (RBC) [Ratio] 13.4 % Normal 10.9-14.2 [facility] Comment on above: Performed By: #### 2 998776, 0318230, 4778157, 6413913, 6810910, 42034523 ####[facility] [address] [place] [address] Hematocrit (Bld) [Volume fraction] 34.6 % Normal 34.0-46.0 [facility] Comment on above: Performed By: #### 2 652790, 3125417, 3185094, 1943819, 0020387, 44332635 ####[facility] [address] [place] [address] Hemoglobin (Bld) [Mass/Vol] 11.9 g/dL Low 12.0-16.0 [facility] Comment on above: Performed By: #### 2 272958, 8125582, 5390710, 6622685, 5751909, 60897607 ####[facility] [address] [place] [address] MCH (RBC) [Entitic mass] 30.7 pg Normal 27.0-34.0 [facility] Comment on above: Performed By: #### 2 546885, 5321804, 6506891, 5551483, 3210324, 34360577 ####[facility] [address] [place] [address] MCHC (RBC) [Mass/Vol] 34.5 g/dL Normal 31.4-36.0 [facility] Comment on above: Performed By: #### 2 475974, 0046190, 0756939, 4336870, 8107066, 01574049 ####[address] [place] [address] MCV (RBC) [Entitic vol] 88.9 fL Normal 80.0-100.0 [facility] Comment on above: Performed By: #### 2 086059, 0422635, 2919170, 5969043, 8568988, 89652880 ####[address] [address] Platelet mean volume (Bld) [Entitic vol] 6.9 fL Normal 6.4-10.8 [facility] Comment on above: Performed By: #### 2 497755, 2505708, 7959763, 3738509, 9486885, 20249095 ####[address] [address] Platelets (Bld) [#/Vol] 337.0 E9/L Normal 150.0-500.0 [facility] Comment on above: Performed By: #### 2 089623, 3319289, 0748380, 4264649, 2115019, 76164998 ####[address] [place] [address] RBC (Bld) [#/Vol] 3.9 E12/L Low 4.3-5.9 [facility] Comment on above: Performed By: #### 2 432411, 3493075, 5427882, 1831244, 7461544, 27193308 ####[facility] [address] [place] [address] WBC corrected for nucl RBC Auto (Bld) [#/Vol] 13.3 E9/L High 4.0-11.0 [facility] Comment on above: Performed By: #### 2 843081, 7248474, 0820242, 4321959, 5803426, 67903733 ####[facility] [address] [place] [address] CHEMISTRYOrdered By: SYSTEM SYSTEM on 09-21-2021 Anion gap [Moles/Vol] 15 mmol/L Normal 6 - 16 mEq/L [facility] [place] Remisol Chloride [Moles/Vol] 95 mmol/L Low 101 - 1 11 mmol/L FT Remisol CO2 [Moles/Vol] 25 mmol/L Normal 21 - 31 mmol/L FT Remisol Creatinine [Mass/Vol] 0.6 mg/dL Normal 0.5 - 1.3 mg/dL [facility] [place] Remisol GFR/1.73 sq M.predicted among blacks MDRD (S/P/Bld) [Vol rate/Area] mL/min/1.73 m2 Normal >=59mL/min/ 1.73 m2 [facility] [place] Chem S GFR/1.73 sq M.predicted among non-blacks MDRD (S/P/Bld) [Vol rate/Area] mL/min/1.73 m2 Normal >=59mL/min/ 1.73 m2 [facility] [place] Chem S Potassium [Moles/Vol] 4.1 mmol/L Normal 3.5 - 5.3 mmol/L [facility] [place] Remisol Sodium [Moles/Vol] 131 mmol/L Low 135 - 145 mmol/L [facility] [place] Remisol Urea nitrogen [Mass/Vol] 7 mg/dL Normal 5 - 21 mg/dL [facility] [place] Remisol Creatinineon 09-21-2021 Creatinine [Mass/Vol] 0.6 mg/dL Normal 0.5-1.3 [facility] Comment on above: Performed By: #### 2 570243, 6238750, 2334993, 3393113, 9949537, 85873726 ####[facility] [address] [place] [address] Discharge Instructionson Discharge Instructions [id number]: 127 Normal [facility] Discharge Note-Nursingon Discharge Note-Nursing ANNE KEMP :1955 Visit Date:09/19/2021 Inpatient Discharge Instructions Your Care Team Admitting Physician - Cas Severino DO Consulting Physician - Jewels DOMINGUEZ Referring Physician - Cas Severino DO Reason for Your Visit T84.028A T84.093D M17.12 Z96.652 Your Diagnosis Status post total left knee replacement Iron deficiency anemia Hyponatremia HTN (hypertension) Bipolar disorder Manic disorder Chronic GERD DVT prophylaxis Tests Performed ABO/Rh Antibody Screen Automated Diff BUN CBC w/ Auto Diff Creatinine eGFR Lytes Urinalysis with Culture Reflex XR Knee 1 or 2 Views Left This Is Your Medications List Non-Formulary Medication (ashwaganda/dev root) Turmeric (turmeric 500 mg oral capsule) ascorbic acid (Vitamin C 1000 mg oral tablet) aspirin (Aspirin 81 mg Tab-EC) cannabidiol cholecalciferol (Vitamin D 1000 intl units (25 mcg) Tab) docusate (Colace 100 mg Cap) hydroxychloroquine (hydroxychloroquine 200 mg Tab) lamotrigine (lamotrigine 200 mg Tab) magnesium hydroxide (magnesium hydroxide 8% Oral Susp 30 mL) metoprolol (Lopressor 25 mg oral tablet) multivitamin (Vitamin B Complex oral capsule) omega-3 polyunsaturated fatty acids (Fish Oil) oxycodone (oxyCODONE 5 mg Tab) quetiapine (SEROquel 25 mg Tab) venlafaxine (venlafaxine 150 mg Cap-ER) Procedures Performed Total knee arthroplasty (09/19/2021), Total knee arthroplasty (09/19/2021), Arthroplasty of the knee, Cholecystectomy. Discharge Vitals Temperature (Oral) 36.8 ?C Heart Rate (Apical) 94 Respiratory Rate 18 Blood Pressure 146/87 What to do next Instructions From Your Doctor No qualifying data available. New Follow Up Appointments after Discharge Follow Up with Cas Severino When: 10/18/2021 03:00 PM EDT Where: [address] [place] [address]- Business (1) Follow Up with KERRI LUGO When: In 0 days Where: [address] [place] [address] [phone] Business (1) Medications What How Much When Instructions Next Dose Changed metoprolol (Lopressor 25 mg oral tablet) 1 Tablets By Mouth 2 times a day 09/21 @ 9 PM Unchanged ascorbic acid (Vitamin C 1000 mg oral tablet) 1 Tablets By Mouth Every day 09/22 @ 9 AM Unchanged aspirin (Aspirin 81 mg Tab-EC) 1 Tablets By Mouth Twice a day (after meals) Pickup at [address] NEEDED Unchanged cannabidiol By Mouth Every day 09/22 @ AM Unchanged cholecalciferol (Vitamin D 1000 intl units (25 mcg) Tab) 1 Tablets By Mouth Every day 09/22 @ AM Unchanged docusate (Colace 100 mg Cap) 1 Capsules By Mouth 2 times a day as needed for for constipation Pickup at [address] Unchanged hydroxychloroquine (hydroxychloroquine 200 mg Tab) 1 Tablets By Mouth Every day 09/22 @ 9 AM Unchanged lamotrigine (lamotrigine 200 mg Tab) 1 Tablets By Mouth 2 times a day 09/21 @ PM Unchanged magnesium hydroxide (magnesium hydroxide 8% Oral Susp 30 mL) 30 Milliliter By Mouth 2 times a day as needed for Constipation NEEDED Unchanged multivitamin (Vitamin B Complex oral capsule) 1 Capsules By Mouth Every day 09/22 @ 9 AM Unchanged Non-Formulary Medication (ashwaganda/ dev root) By Mouth Every day 09/22 @ 9 AM Unchanged omega-3 polyunsaturated fatty acids (Fish Oil) 1,000 Milligram By Mouth Every day 09/22 @ 9 AM Unchanged oxycodone (oxyCODONE 5 mg Tab) 1 Tablets By Mouth Every 6 hours 1-2 po q4-6 hrs prn pain Dx: M17.12, Z96.652 Duration: 7days Disregard si po q6hr prn pain Pickup at [address] NEEDED Unchanged quetiapine (SEROquel 25 mg Tab) 09/22 @ 9 PM Unchanged Turmeric (turmeric 500 mg oral capsule) 1 Capsules By Mouth Every day 09/22 @ 9 AM Unchanged venlafaxine (venlafaxine 150 mg Cap-ER) 1 Capsules By Mouth Every day 09/22 @ 9 AM Pharmacy Information [facility] [place], [place] [id number] [phone] Test Results CBC BMP WBC: 13.3 E9/L High (09/21/21 04:41:00) BUN: 7 mg/dL (09/21/21 04:41:00) RBC: 3.9 E12/L Low (09/21/21 04:41:00) Creatinine: 0.6 mg/dL (09/21/21 04:41:00) HGB: 11.9 gm/dL Low (09/21/21 04:41:00) Sodium Lvl: 131 mmol/L Low (09/21/21 04:41:00) Hct: 34.6 % (09/21/21 04:41:00) Potassium Lvl: 4.1 mmol/L (09/21/21 04:41:00) MCV: 88.9 fL (09/21/21 04:41:00) Chloride: 95 mmol/L Low (09/21/21 04:41:00) MCH: 30.7 pg (09/21/21 04:41:00) CO2: 25 mmol/L (09/21/21 04:41:00) MCHC: 34.5 gm/dL (09/21/21 04:41:00) AGAP: 15 mEq/L (09/21/21 04:41:00) RDW: 13.4 % (09/21/21 04:41:00) Platelet: 337 E9/L (09/21/21 04:41:00) MPV: 6.9 fL (09/21/21 04:41:00) Allergies codeine (nausea) penicillin (hives) Devices Implanted/Removed This Visit Notice: You have devices implanted this visit that may not be MRI compatible. Implanted KNEE TOTAL ARTHROPLASTY REVISION Knee L SIMPLEX HV (2), 09/19/2021 TRIATHLON POSTERIOR STABIL (more content not included)... Normal [facility] HEMATOLOGYOrdered By: SYSTEM SYSTEM on 09-21-2021 Basophils/100 WBC (Bld) 0.0 % Normal 0.0 - 2.0 % [facility] HemeAutoSS Basophils/Leukocytes Auto (Bld) [Pure # fraction] 0.0 E9/L Normal 0.0 - 0.2 E9/L [facility] HemeAutoSS Eosinophils/100 WBC (Bld) 0.2 % Normal 0.0 - 8.0 % [facility] Eosinophils/Leukocyt es Auto (Bld) [Pure # fraction] 0.0 E9/L Normal 0.0 - 0.5 E9/L [facility] Lymphocytes/100 WBC (Bld) 7.3 % Low 14.0 - 50.0 % [facility] Lymphocytes/Leukocyt es Auto (Bld) [Pure # fraction] 1.0 E9/L Normal 1.0 - 4.0 E9/L [facility] Monocytes/100 WBC (Bld) 11.0 % Normal 4.0 - 14.0 % [facility] Monocytes/Leukocytes Auto (Bld) [Pure # fraction] 1.5 E9/L High 0.2 - 1.0 E9/L [facility] Neutrophils/100 WBC (Bld) 81.5 % High 36.0 - 75.0 % [facility] Neutrophils/Leukocyt es Auto (Bld) [Pure # fraction] 10.8 E9/L High 2.0 - 7.5 E9/L [facility] HEMATOLOGYOrdered By: Tray Cotton on 09-21-2021 Erythrocyte distribution width (RBC) [Ratio] 13.4 % Normal 10.9 - 14.2 % [facility] Hematocrit (Bld) [Volume fraction] 34.6 % Normal 34.0 - 46.0 % [facility] Hemoglobin (Bld) [Mass/Vol] 11.9 g/dL Low 12.0 - 16.0 gm/dL [facility] MCH (RBC) [Entitic mass] 30.7 pg Normal 27.0 - 34.0 pg [facility] MCHC (RBC) [Mass/Vol] 34.5 g/dL Normal 31.4 - 36.0 gm/dL [facility] MCV (RBC) [Entitic vol] 88.9 fL Normal 80.0 - 100.0 fL [facility] Platelet mean volume (Bld) [Entitic vol] 6.9 fL Normal 6.4 - 10.8 fL [facility] [place] [facility] Platelets (Bld) [#/Vol] 337.0 E9/L Normal 150.0 - 500.0 E9/L [facility] [place] [facility] RBC (Bld) [#/Vol] 3.9 E12/L Low 4.3 - 5.9 E12/L [facility] [place] [facility] WBC corrected for nucl RBC Auto (Bld) [#/Vol] 13.3 E9/L High 4.0 - 11.0 E9/L [facility] [place] [facility] Interdisciplinary Note - Nick e Manageron 09-21-2021 Interdisciplinary Note - Log Sorter CRM to discuss DC plans with patient. Pt is awake and alert in bed, no family present. Denies need for CRM to call PCP verified and insurance information reviewed and DME discussed. contact information provided and white board updated. Patient previously rounded with Ashlyn GUTIERREZ. Patient is a DC home today with ortho 360. Patient verbalizes feeling better today and is okay with the DC plans. She will have family transport her at DC and her FWW is present. CRM following. Normal [facility] Comment on above: Result Comment: Elec tronically Signed By: Payton Ordaz\.br\Date and Time Signed: 09/21/21 09:39 EDT [place] 09-21-2021 Anion gap [Moles/Vol] 15 mmol/L Normal 6-16 [facility] Comment on above: Performed By: #### 2 [id number], [id number] ####[facility] [id number] [place] [address] Chloride [Moles/Vol] 95 mmol/L Low 101-111 [facility] Comment on above: Performed By: #### 2 [id number], [id number], [id number], [id number] ####[facility] [id number] [place] [address] CO2 [Moles/Vol] 25 mmol/L Normal 21-31 [facility] Comment on above: Performed By: #### 2 [id number], [id number], [id number], [id number], [id number], [id number] ####[facility] [id number] [place] [address] Potassium [Moles/Vol] 4.1 mmol/L Normal 3.5-5.3 [facility] Comment on above: Performed By: #### 2 [id number], [id number], [id number], [id number], [id number], [id number] ####[facility] [id number] [place] [address] Sodium [Moles/Vol] 131 mmol/L Low 135-145 [facility] Comment on above: Performed By: #### 2 [id number], [id number], [id number], [id number], [id number], [id number] ####[facility] [id number] [place] [address] Operative Reporton Operative Report SURGERY DATE: 2021 GUEST SERVICE AIDE: Lizet Armas, Certified [employer] PREOPERATIVE DIAGNOSIS: 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 secondary to osteoarthritis status post medial unicompartmental knee arthroplasty POSTOPERATIVE DIAGNOSIS: 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 secondary to osteoarthritis status post medial unicompartmental knee arthroplasty OPERATION: Left knee hardware removal with conversion to total knee arthroplasty, complete synovectomy anterior and posterior ANESTHESIA: Spinal as well as adductor canal block ANESTHESIOLOGIST: Luis M Delgado CRNA ESTIMATED BLOOD LOSS: None SPECIMEN: Hardware as well as bone and soft tissue COMPLICATIONS: None DRAINS: None IMPLANT: Fany total knee system with a size 4 left posterior stabilized femur, a 4 universal baseplate, a 12 x 50 mm cemented stem, a medial 5 mm augment wedge, the poly is 4 x 13 mm X3 posterior stabilized, patella 32 asymmetric HISTORY/OPERATIVE INDICATIONS: Anne is a 66 year old white female who presents complaining of pain and difficulty about her left knee. She is found to have progression to osteoarthritis lateral patellofemoral compartment status post unicompartmental knee arthroplasty. With this we did discuss the above procedure. The procedure is undertaken this day. The patient does report pain affecting her quality of life, difficulty with ambulation and being on her feet for any time frame. INTRAOPERATIVE PATHOLOGY: Upon dissection of the knee from opening the previous incision as well as looking into the knee there is noted to be a significant synovitis. Complete synovectomy anterior posterior is performed. There is noted to be no significant loosening of the implant. The poly is removed. There is noted to be some oxidation and wear. The component is removed with little blood loss, however, a 5 mm medial augment is needed. The decision for a universal baseplate is made. Based upon the nature of the procedure, a stemmed component on the tibial side is utilized. Adequate stabilization throughout the arc of motion is achievable and balance of flexion extension gaps. PROCEDURE: After informed consent is obtained the risks, complications, reasonable expectations of the above procedure are discussed at length. The patient is taken to the Operative Suite, placed on the Operating Room table in supine position. At this point she is given a spinal anesthetic. This is preceded by an adductor canal block. She is then given a Martin catheter, well padded tourniquet to the left thigh. Sandbag positioner to the table. The knee is sterilely prepped and draped at which time site verification is undertaken with a timeout procedure. The limb is exsanguinated with an Esmarch. The tourniquet inflated to 300 mm Hg. Previous incision is ellipticized and excised. The incision is extended proximal-little. Dissection is carried sharply through skin with careful attention to all bleeding vessels which are electrocauterized. Dissection is carried down to the capsule. Median parapatellar approach is utilized. The knee is entered. The synovitis is encountered. The medial synovectomy is performed followed by the lateral. This does include the anterior aspect of the knee. The knee is flexed and the poly component removed. The tibial and femoral components are thus removed. The anterior cruciate ligament is cut and the posterior synovectomy is performed. At this point the focus is to the femur. Intramedullary guiding is utilized. The distal cutting jig is appropriately set, pinned into position. The cut is made. At this point the external rotation is identified by the epicondylar axis as there is bone missing medially. The holes are drilled and the 4 in 1 cutting block is initially used for a 5. The block is then brought forward 1.5 mm and used for a 4 as this was a better fit both anterior posterior as well as medial lateral. At this point the 4 in 1 cutting block is utilized for the anterior posterior cuts, anterior posterior chamfer cuts. The box cutting jig is then utilized and excess bone is removed. The trial component does seat nicely with adequate positioning. The focus is then to the tibia. Intramedullary guiding is utilized. Tibial cutting jig is pinned into position. The cut is made laterally. The decision for the 5 mm medial augment is made and this is accomplished through the same cutting jig. The reciprocating saw is then utilized to complete the medial wedge cut. The trialing is done cursorily at this point and found to have adequate stability through the arc of motion. The tibia is then prepared for the keel as well as the stem with reaming and punching accordingly. The trial is then constructed and did seat quite nicely. Trialing again found to be quite nice. The patella is sized to a 32 asymmetric, peg holes are drilled. This did track nicely through the arc of motion with balance of flexion extension gaps. At this point all trials are removed. The knee is prep (more content not included)... Normal [facility] Comment on above: Result Comment: Elec tronically Signed By: Cas Severino DO\.br\Date and Time Signed: 09/21/21 06:46 EDT Progress Note-Physicianon Progress Note-Physician Assessment/Plan 1. Status post total left knee replacement (Z96.652: Presence of left artificial knee joint) S/P Left knee hardware removal with conversion to total knee arthroplasty, complete synovectomy on 09/[address] Severino -PT/OT -> set up with ortho 360 -Pain mgt. -Plaquenil for OA -Education: Oral pain medication regimen, incentive spirometry 10 times while awake and bowel regimen to avoid constipation -Thank you for the opportunity to assist in the management of your patient 2. Iron deficiency anemia (D50.9: Iron deficiency anemia, unspecified) Baseline hgb. level - unknown - no prior labs for comparison -Ferrous sulfate -No acute bleeding noted, hemodynamically stable -Trend labs 3. Hyponatremia (E87.1: Hypo-osmolality and hyponatremia) Asymptomatic -DC IVF - 3L to date - taking PO -Trend BMP 4. HTN (hypertension) (I10: Essential (primary) hypertension) Elevated likely secondary to holding of metoprolol pre-operatively and in the setting of pain -Metoprolol, -IV hydralazine prn 5. Bipolar disorder (F31.9: Bipolar disorder, unspecified) Stable -Lamotrigine, venlafaxine, -Hold cannabidiol, 6. Manic disorder (F30.9: Manic episode, unspecified) Stable -See above 7. Chronic GERD (K21.9: Gastro-esophageal reflux disease without esophagitis) -PPI 8. DVT prophylaxis (Z29.9: Encounter for prophylactic measures, unspecified) -Defer to Ortho ?> aspirin BID -Plan discussed w/ patient, nursing staff and CRM. This report was transcribed using voice recognition software. Every effort was made to ensure accuracy, however, inadvertently computerized boiler plant worker mistakes may be present. Subjective She states that she feels better today, denies nausea or complaints. No acute events overnight. Patient denies CP, pressure, palpitations, N/V, SOB or paresthesia. Review of Systems Additional ROS info: Except as noted in the above Review of Systems and in the History of Present Illness all other systems have been reviewed and are negative or noncontributory Objective Vitals & Measurements T: 36.8 ?C(Oral) TMIN: 36.7 ?C(Oral) TMAX: 37.3 ?C(Oral) HR: 102(Apical) RR: 18 BP: 154/95 SpO2: 98% Intake & Output This visit (24 hour periods starting at 07:00 EDT) 09/21/21 * 09/20/21 09/19/21 Total Summary Intake mL -- 807 1,389.48 Output mL -- 1,850 4,390 Fluid Balance -- -1,043 -3,000.52 Intake (16) Generic Diluent, cefazolin mL -- -- 100 Lactated Ringers Injection mL -- -- 1,100 Lactated Ringers Injection 1,000 mL mL -- -- 100 Oral Intake mL -- 800 -- bupivacaine mL -- -- 1.6 dexamethasone mL -- -- 2 dexmedetomidine mL -- -- 0.57 ephedrine mL -- -- 0.8 fentanyl mL -- -- 0.2 hydrALAZINE mL -- 1 -- ketorolac mL -- -- 0.5 lidocaine mL -- -- 1 midazolam mL -- -- 2 morphine mL -- 2 3 ondansetron mL -- 4 2 propofol mL -- -- 75.81 Total -- 807 1,389.48 Output (3) EBL Surgery mL -- -- 40 Urine Catheter mL -- 1,850 3,750 Urine Count mL -- -- 600 Total -- 1,850 4,390 Counts (3) Stool Count -- -- -- Urine Count -- 2 -- Urine Count mL -- -- 600 * This column has not completed the indicated time period. Physical Exam General: Alert and oriented, No acute distress. Eye: Pupils are equal, round and reactive to light. HENT: Normocephalic, Normal hearing, No pharyngeal erythema. Neck: Supple, Non-tender, No lymphadenopathy. Respiratory: Lungs are clear to auscultation, Respirations are non-labored, Breath sounds are equal, Symmetrical chest wall expansion. Cardiovascular: Normal rate, Regular rhythm, Good pulses equal in all extremities, Normal peripheral perfusion, No edema. Gastrointestinal: Soft, Non-tender, Non-distended, Normal bowel sounds. Musculoskeletal L knee dressing clean dry and intact, ice wrap on, distal pulses palpable, Integumentary: Warm, Dry, Intact. Neurologic: Alert, Oriented, No focal deficits. Psychiatric: Cooperative, Appropriate mood & affect, Normal judgment. Lab Results WBC: 13.3 E9/L High (09/21/21 04:41:00) RBC: 3.9 E12/L Low (09/21/21 04:41:00) HGB: 11.9 gm/dL Low (09/21/21 04:41:00) Hct: 34.6 % (09/21/21 04:41:00) MCV: 88.9 fL (09/21/21 04:41:00) MCH: 30.7 pg (09/21/21 04:41:00) MCHC: 34.5 gm/dL (09/21/21 04:41:00) RDW: 13.4 % (09/21/21 04:41:00) Platelet: 337 E9/L (09/21/21 04:41:00) MPV: 6.9 fL (09/21/21 04:41:00) Neutro Auto: 81.5 % High (09/21/21 04:41:00) Lymph Auto: 7.3 % Low (09/21/21 04:41:00) [place] Auto: 11 % (09/21/21 04:41:00) Eos Auto: 0.2 % (09/21/21 04:41:00) Basophil Auto: 0 % (09/21/21 04:41:00) Neutro Absolute: 10.8 E9/L High (09/21/21 04:41:00) Lymph Absolute: 1 E9/L (09/21/21 04:41:00) [place] Absolute: 1.5 E9/L High (09/21/21 04:41:00) Eos Absolute: 0 E9/L (09/21/21 04:41:00) Basophil Absol (more content not included)... Normal [facility] Comment on above: Result Comment: Elec tronically Signed By: Ashlyn PETERSON\.br\Date and Time Signed: 09/21/21 09:03 EDT\.br\Electronically Co-Signed By: Brijesh BARRETT MD\.br\Date and Time Co-Signed: 09/21/21 09:52 EDT eGFRon 09-21-2021 GFR/1.73 sq M.predicted among blacks MDRD (S/P/Bld) [Vol rate/Area] mL/min/{1.73_m2} Normal >=59 [facility] Comment on above: Order Comment: Order added by Discern Expert. Result Comment: eGFR is race adjusted. AA=. Performed By: #### 2 012032, 7833780, 2701257, 6224319, 5484770, [id number] ####[facility] [address] [place] [address] GFR/1.73 sq M.predicted among non-blacks MDRD (S/P/Bld) [Vol rate/Area] mL/min/{1.73_m2} Normal >=59 [facility] Comment on above: Order Comment: Order added by Discern Expert. Result Comment: Auto Repair Technician josesito kidney disease could be indicated at eGFR's of less than 60 mL/min/1.73m2. Kidney failure is indicated at less than 15 mL/min/1.73m2. Performed By: #### 2 937531, 4535887, 6000134, 8550271, 5651518, [id number] ####[facility] [address] [place] [address] Auto Diffon 09-20-2021 Basophils/100 WBC (Bld) 0.2 % Normal 0.0-2.0 [facility] Comment on above: Order Comment: Order Added by Discern Expert. Performed By: #### 2 033291, 4240694, 8527674, 85864462, 0129454, 0325005 ####[facility] [address] [place] [address] Basophils/Leukocytes Auto (Bld) [Pure # fraction] 0.0 E9/L Normal 0.0-0.2 [facility] Comment on above: Order Comment: Order Added by Discern Expert. Performed By: #### 2 805655, 0017030, 1880240, 86933201, 4611358, 9388202 ####[address] [address] Eosinophils/100 WBC (Bld) 0.2 % Normal 0.0-8.0 [facility] Comment on above: Order Comment: Order Added by Discern Expert. Performed By: #### 2 195500, 4877918, 0109606, 49829178, 1480233, 2490195 ####[address] [place] [address] Eosinophils/Leukocyt es Auto (Bld) [Pure # fraction] 0.0 E9/L Normal 0.0-0.5 [facility] Comment on above: Order Comment: Order Added by Discern Expert. Performed By: #### 2 502175, 5424107, 2894566, 80398044, 1263157, 0321287 ####[address] [place] [address] Lymphocytes/100 WBC (Bld) 15.6 % Normal 14.0-50.0 [facility] Comment on above: Order Comment: Order Added by Discern Expert. Performed By: #### 2 011342, 8193694, 5298408, 14135163, 3797323, 5391480 ####[address] [place] [address] Lymphocytes/Leukocyt es Auto (Bld) [Pure # fraction] 1.4 E9/L Normal 1.0-4.0 [facility] Comment on above: Order Comment: Order Added by Discern Expert. Performed By: #### 2 235958, 1850960, 5660491, 64365873, 8853663, 4028162 ####[address] [place] [address] Monocytes/100 WBC (Bld) 12.8 % Normal 4.0-14.0 [facility] Comment on above: Order Comment: Order Added by Discern Expert. Performed By: #### 2 053934, 6054523, 4990262, 69145002, 9630827, 8923302 ####[address] [address] Monocytes/Leukocytes Auto (Bld) [Pure # fraction] 1.1 E9/L High 0.2-1.0 [facility] Comment on above: Order Comment: Order Added by Discern Expert. Performed By: #### 2 724968, 9788453, 0178595, 79236811, 7358861, 1719748 ####[address] [place] [address] Neutrophils/100 WBC (Bld) 71.2 % Normal 36.0-75.0 [facility] Comment on above: Order Comment: Order Added by Discern Expert. Performed By: #### 2 542484, 1455470, 9071969, 65325617, 8062624, 8376902 ####[address] [place] [address] Neutrophils/Leukocyt es Auto (Bld) [Pure # fraction] 6.4 E9/L Normal 2.0-7.5 [facility] Comment on above: Order Comment: Order Added by Discern Expert. Performed By: #### 2 452295, 9661204, 6678844, 03309379, 2797799, 7618506 ####[facility] [address] [place] [address] BUNon 09-20-2021 Urea nitrogen [Mass/Vol] 9 mg/dL Normal 5-21 [facility] Comment on above: Performed By: #### 2 024313, 7641760, 5158213, 76183063, 2928927, 9907801 ####[facility] [address] [place] [address] Blood Bank Slipon 09-20-2021 Blood Bank Slip [id number]#[id number]: 127 Normal [facility] CBC w/ Auto Diffon Erythrocyte distribution width (RBC) [Ratio] 13.5 % Normal 10.9-14.2 [facility] Comment on above: Performed By: #### 2 195484, 9480753, 5023001, 12636732, 7919383, 6943240 ####[facility] [address] [place] [address] Hematocrit (Bld) [Volume fraction] 29.0 % Low 34.0-46.0 [facility] Comment on above: Performed By: #### 2 294690, 5838770, 3015683, 57759063, 9784925, 0638644 ####[facility] [address] [place] [address] Hemoglobin (Bld) [Mass/Vol] 10.1 g/dL Low 12.0-16.0 [facility] Comment on above: Performed By: #### 2 670757, 8901289, 4396637, 05158618, 6953139, 2430937 ####[facility] [address] [place] [address] MCH (RBC) [Entitic mass] 31.3 pg Normal 27.0-34.0 [facility] Comment on above: Performed By: #### 2 903855, 6946691, 6977942, 41569103, 7551849, 1604135 ####[address] MCHC (RBC) [Mass/Vol] 34.8 g/dL Normal 31.4-36.0 [facility] Comment on above: Performed By: #### 2 802359, 6658461, 0907253, 88520587, 3805631, 3887636 ####[address] MCV (RBC) [Entitic vol] 89.7 fL Normal 80.0-100.0 [facility] Comment on above: Performed By: #### 2 012571, 1065986, 7424727, 94376636, 3674419, 2458882 ####[address] Platelet mean volume (Bld) [Entitic vol] 6.7 fL Normal 6.4-10.8 [facility] Comment on above: Performed By: #### 2 659972, 2665574, 7847275, 87909511, 4139193, 7602860 ####[address] Platelets (Bld) [#/Vol] 294.0 E9/L Normal 150.0-500.0 [facility] Comment on above: Performed By: #### 2 483606, 4972467, 1141339, 97223814, 9913968, 5190540 ####[address] RBC (Bld) [#/Vol] 3.2 E12/L Low 4.3-5.9 [facility] Comment on above: Performed By: #### 2 837517, 9264113, 0445182, 11084478, 5738252, 2061462 ####[address] [address] WBC corrected for nucl RBC Auto (Bld) [#/Vol] 8.9 E9/L Normal 4.0-11.0 [facility] Comment on above: Performed By: #### 2 830324, 0521514, 9455317, 35427606, 0315717, 7841198 ####[facility] [address] [place] [address] CHEMISTRYOrdered By: SYSTEM SYSTEM on 09-20-2021 Anion gap [Moles/Vol] 8 mmol/L Normal 6 - 16 mEq/L FT Remisol Chloride [Moles/Vol] 106 mmol/L Normal 101 - 1 11 mmol/L [facility] CO2 [Moles/Vol] 28 mmol/L Normal 21 - 31 mmol/L [facility] Creatinine [Mass/Vol] 0.8 mg/dL Normal 0.5 - 1.3 mg/dL [facility] [place] Remisol GFR/1.73 sq M.predicted among blacks MDRD (S/P/Bld) [Vol rate/Area] mL/min/1.73 m2 Normal >=59mL/min/ 1.73 m2 [facility] [place] Chem S GFR/1.73 sq M.predicted among non-blacks MDRD (S/P/Bld) [Vol rate/Area] mL/min/1.73 m2 Normal >=59mL/min/ 1.73 m2 [facility] [place] Chem S Potassium [Moles/Vol] 4.2 mmol/L Normal 3.5 - 5.3 mmol/L FT Remisol Sodium [Moles/Vol] 138 mmol/L Normal 135 - 145 mmol/L [facility] [place] Remisol Urea nitrogen [Mass/Vol] 9 mg/dL Normal 5 - 21 mg/dL [facility] [place] Remisol Consent for Anesthesiaon Consent for Anesthesia [id number]#1.00C D:127 Normal [facility] Creatinineon 09-20-2021 Creatinine [Mass/Vol] 0.8 mg/dL Normal 0.5-1.3 [facility] Comment on above: Performed By: #### 2 892631, 2923942, 8822365, 63044811, 6545121, 5189019 ####[facility] [address] [place] [address] HEMATOLOGYOrdered By: SYSTEM SYSTEM on 09-20-2021 Basophils/100 WBC (Bld) 0.2 % Normal 0.0 - 2.0 % [facility] Basophils/Leukocytes Auto (Bld) [Pure # fraction] 0.0 E9/L Normal 0.0 - 0.2 E9/L [facility] Eosinophils/100 WBC (Bld) 0.2 % Normal 0.0 - 8.0 % [facility] Eosinophils/Leukocyt es Auto (Bld) [Pure # fraction] 0.0 E9/L Normal 0.0 - 0.5 E9/L [facility] Lymphocytes/100 WBC (Bld) 15.6 % Normal 14.0 - 50.0 % [facility] Lymphocytes/Leukocyt es Auto (Bld) [Pure # fraction] 1.4 E9/L Normal 1.0 - 4.0 E9/L [facility] Monocytes/100 WBC (Bld) 12.8 % Normal 4.0 - 14.0 % [facility] Monocytes/Leukocytes Auto (Bld) [Pure # fraction] 1.1 E9/L High 0.2 - 1.0 E9/L [facility] Neutrophils/100 WBC (Bld) 71.2 % Normal 36.0 - 75.0 % [facility] Neutrophils/Leukocyt es Auto (Bld) [Pure # fraction] 6.4 E9/L Normal 2.0 - 7.5 E9/L [facility] HEMATOLOGYOrdered By: Norma Persaud on 09-20-2021 Erythrocyte distribution width (RBC) [Ratio] 13.5 % Normal 10.9 - 14.2 % [facility] Hematocrit (Bld) [Volume fraction] 29.0 % Low 34.0 - 46.0 % [facility] Hemoglobin (Bld) [Mass/Vol] 10.1 g/dL Low 12.0 - 16.0 gm/dL [facility] MCH (RBC) [Entitic mass] 31.3 pg Normal 27.0 - 34.0 pg [facility] MCHC (RBC) [Mass/Vol] 34.8 g/dL Normal 31.4 - 36.0 gm/dL [facility] MCV (RBC) [Entitic vol] 89.7 fL Normal 80.0 - 100.0 fL [facility] Platelet mean volume (Bld) [Entitic vol] 6.7 fL Normal 6.4 - 10.8 fL [facility] [place] [facility] Platelets (Bld) [#/Vol] 294.0 E9/L Normal 150.0 - 500.0 E9/L [facility] [place] [facility] RBC (Bld) [#/Vol] 3.2 E12/L Low 4.3 - 5.9 E12/L [facility] [place] [facility] WBC corrected for nucl RBC Auto (Bld) [#/Vol] 8.9 E9/L Normal 4.0 - 11.0 E9/L [facility] [place] [facility] Interdisciplinary Note - Nick e Manageron 09-20-2021 Interdisciplinary Note - Log Sorter CRM to discuss DC plans with patient. Pt is awake and alert in bed, no family present. Denies need for CRM to call PCP verified and insurance information reviewed and DME discussed. contact information provided and white board updated. Patient is a DC home today, will have family support and ortho 360. Patient son will transport and her walker is present. CRM following. Patient will now not be a DC and will stay 1 more night. Patient had elevated BP, uncontrolled pain Normal [facility] Comment on above: Result Comment: Elec tronically Signed By: Payton Ordaz\.br\Date and Time Signed: 09/20/21 15:12 EDT Interdisciplinary Note - Bogdan n 09-20-2021 Interdisciplinary Note - OT OT six clicks score: 23/24=Home with no OT needs. Pt is setup with ortho 360 and reports no issues or concerns with going home once medically stable. Pt completes full body dressing setup A and all ADL transfers close supervision with good safety awareness. There is no need for inpatient OT services at this time. Normal [facility] IntraOperative Documentson 0 09-20-2021 IntraOperative Documents [id number]#1.00C D:127 Normal [facility] IntraOperative Documents [id number]#1.00C D:127 Normal [facility] Lyteson 09-20-2021 Anion gap [Moles/Vol] 8 mmol/L Normal 6-16 [facility] Comment on above: Performed By: #### 2 888708, 7702498, 0659218, 93906095, 0704054, 1293414 ####[facility] [address] [place] [address] Chloride [Moles/Vol] 106 mmol/L Normal 101-111 [facility] Comment on above: Performed By: #### 2 093077, 1004993, 4876785, 56404554, 6017636, 4424248 ####[facility] [address] [place] [address] CO2 [Moles/Vol] 28 mmol/L Normal 21-31 [facility] Comment on above: Performed By: #### 2 897449, 7921208, 7050222, 90093383, 9435865, 7501749 ####[facility] [address] [place] [address] Potassium [Moles/Vol] 4.2 mmol/L Normal 3.5-5.3 [facility] Comment on above: Performed By: #### 2 208291, 0670322, 5442015, 38191428, 4746457, 4295830 ####[facility] [address] [place] [address] Sodium [Moles/Vol] 138 mmol/L Normal 135-145 [facility] Comment on above: Performed By: #### 2 778791, 8397600, 8593003, 01102569, 1023422, 5658372 ####[address] [place] [address] Operative Reporton 2 Operative Report SURGERY DATE: 2021 PREOPERATIVE DIAGNOSIS: Postoperative pain control requested by patient and surgeon POSTOPERATIVE DIAGNOSIS: Postoperative pain control requested by patient and surgeon OPERATION: Left adductor canal block utilizing ultrasound guidance ANESTHESIA: Local with monitored anesthesia care PROCEDURE: The patient was interviewed and examined. The anesthesia options were discussed including adductor canal block for postoperative analgesia. The discussion included the procedure, risks and benefits and alternatives to the procedure. The patient's questions were all answered and the patient elected to proceed with the adduction canal block for postoperative pain relief. The patient was placed on the monitors, electrocardiogram, noninvasive blood pressure machine and pulse oximetry. I.V. sedation was then administered with a total of 2 mg I.V. Versed. The mid thigh was prepped with ChloraPrep and sterilely draped. The anatomy was identified with ultrasound and then under ultrasound guidance, the femoral nerve was identified with a 21 gauge 100 mm needle. After attempted aspiration for blood, a solution of 20 mL of 0.5% ropivacaine was slowly injected with frequent aspirations without signs or symptoms of intravascular injection. The patient tolerated the procedure well. There were signs and symptoms of a block within minutes after completion of the procedure. The patient then proceeded to undergo general anesthesia for the proposed procedure. Luis M Delgado CRNA ls Dictated: 09/19/2021 [id number] Transcribed: 09/19/2021 [facility] Comment on above: Result Comment: Elec tronically Signed By: Luis M Delgado CRNA\.br\Date and Time Signed: 09/20/21 08:18 EDT Preoperative Documentson Preoperative Documents [id number]#1.00C D:127 Normal [facility] Preoperative Documents [id number]#1.00C D:127 Normal [facility] eGFRon 09-20-2021 GFR/1.73 sq M.predicted among blacks MDRD (S/P/Bld) [Vol rate/Area] mL/min/{1.73_m2} Normal >=59 [facility] Comment on above: Order Comment: Order added by Discern Expert. Result Comment: eGFR is race adjusted. AA=. Performed By: #### 2 [id number], [id number] ####[facility] [address] [place] [address] GFR/1.73 sq M.predicted among non-blacks MDRD (S/P/Bld) [Vol rate/Area] mL/min/{1.73_m2} Normal >=59 [facility] Comment on above: Order Comment: Order added by Discern Expert. Result Comment: Auto Repair Technician josesito kidney disease could be indicated at eGFR's of less than 60 mL/min/1.73m2. Kidney failure is indicated at less than 15 mL/min/1.73m2. Performed By: #### 2 [id number], [id number] ####[facility] [id number] [place] [address] ABO/Rhon 09-19-2021 ABO/Rh Positive Invalid Interpretation Code [facility] Comment on above: Performed By: #### 1 [id number], [id number] ####[address] [place] [address] ABO/Rh History Checkon 09-19 ABO/Rh History Check Verified Hx Blood Type Normal [facility] Comment on above: Performed By: #### 1 [id number], [id number], [id number], [id number] ####[address] [address] ABSCon 09-19-2021 ABSC Gel Interp Negative Normal [facility] Comment on above: Performed By: #### 1 [id number], [id number], [id number], [id number] ####[facility] [address] [place] [address] BLOOD BANKOrdered By: Angelica ellis on 09-19-2021 ABO/Rh Interp Positive Invalid Interpretation Code [facility] [place] BB Subsection ABSC Gel Interp Negative (09/19/21 9:00 AM) Normal [facility] [place] BB Subsection Blood Bank ID#on 09-19-2021 BBID# [id number] Invalid Interpretation Code [facility] Comment on above: Performed By: #### 1 [id number], [id number], [id number], [id number] ####[address] [place] [address] Coding Summary.on 09-19-2021 Coding Summary. CD:[id number] Gh0b Ww+PGhlYWQ+DR5OFDIsY60cu LAjeE3HA4sHHC6XDWWFKOZFZ Y8KUK9agAQ3EWvhO6ZekoSv DkwwyLIuJO63GVh9ELE2fLnd AYzmsQ1vfZEpI6q2NrUjTY40 tY57MLkjZHQfGsG4DhStjnwf bWFy E9jcGmZrjSCwLkb+PHRhYmxl IHdpZHRoPScxMDAlJyBzdHls DV2yQr0xNTAhLZIgqGiexGFz OiBj a9blVBPxWVgsYR1lqVwvM2At eUK5UBVcj1y8Ve58rJN+PHRk JBQ2iIkfHLxrf965KaHxr1aj IDM3 wQQtGDhiQJZ0U65aq0K5DSLw LHTkUBG6tDQ9rM1nmIwxfaoa E7YtqQWkQwJ8ETG7pNYnwC8m bGln tdojlG5zUam+V18AVD2JVUGO TN3ELfj8I0WnNqjhiXW+PC90 CZGnKF84aXQuqZQfy6tbvFl4 JzEw WSKkSNF2qCcyLVbvu4HpSHEa L90rrOVjk2L5CUWjsOcpbISy KzYhiSV7iU1rYQerpffdz1fv dzsn Pxxns0sifx86aF17Q80jVFlu XIOyOYA1XVSoLJMazDaxtp0p qD2sEj8+XQcfq7hkf0iyhKa8 IjIw YRBkafRofHhbKIY9v9JjYr89 Q1OibMntv1RjZqd3hi03xHOa t4U1uQC1WZmsAAYzvS9nNKok ZnQ6 RIJfYvXpaK15jVSzYPviDh9q lEkmzEwkRM3pLXRxblhiBNKz xS5hIJBviEXxwEilXO4sACUn bjtm h043RsBsTIG2DWBqsNTfV8Zp kQ3vZrHtFAEvCYHwY9WnfWHe ESmgO007AMxjFeU4RVYqciRe Y2Fs KCQxlJstCqS6f7M2Al1Wq5Cn zgdzBYC1WHtvENR2FeNgIjLc DsV9L4XrCyp9VUZnvZxdAM6w J3Bh AUGwfrqxoefgkCT0DPJtPOJl jF80bCXkWWhiPx5iq5W2p052 YWKmFJIshK87Wk0eqAdbBEDq dCBU qW2etpyfp9xbarfrLuKiWSZx MBy3ZSt6YWVlhMmhCdTrNGC4 PrD4KHI0dJSycG2vqRkclqul dG9w Oyc+C15tiJ3wTLL4VEM8hlau LSPsnjBwMN68AB65I3CjSuyt dGFibGU+KOQyepKtaMroHF3g YmFj n9izc5AyIDckM0JsINPkJVfd Kpv2HCJqJDC8dYO1qJ8vFDOb NAckb1S2iXV7H5OqqfPayv8o b2xs USAnWHnyL24jbPWem7L1MQTo xVP2FRCxvMtuAcXbbB70Doz+ XDJsrHjzx4CfTxevi1sdv4tf dGg9 IkOfQCNrhnHmwGgvNOO2m2Dm Hs11F65zUUgwLGPzFSRcGBZi KMVfsUdtgz8kfL0cWq6+PGNv bCB3 uLW6iZ8xOPJbVnQ1TIffE598 YeVczVGtBbejg6jiw0wzyZj2 PkDhMVBbtkNirIppKEE5q4Lf Lz48 G41bQFaqPSDkLUUvNUCyXXIn vCacbe5pdK9lIi7+RS4tu7cf ev40gP79tOX+XLWhGUU0rHec PSdw GHMjpQ4cCOdtArX6HOSkZlPp yK45mBJuKZcmAz7fzYuhmMhv MP7lTBCcnzbal799TeIey3bu IDEw jEBrPGqmQUU3B29ol6Z1PYFf WTGnSKL3jVB4yY5puJphdfuq bGVmdDsgdmVydGljYWwtYWxp Z246 IHRvcDsnPlBhdGllbnQgTmFt KVi8O7XlSpu6RLOonSdiJG9g wYCaJTheXh6imFcriDutAJ8g NTBp heifq672NsKij6tjDPGvxIDl FGnfGJG9J10dp5K9NYXsRXPb PQB6kML5kV7ycOkxdtxebUSp dDsg fnKgbTneKSdjROroL612DTPm xEpfVxValcSqGDVjbIS9DV74 BD69uYWlm5E9hZP9B0VxPYCt bmct goylaDY6IZUkLSGhyK67Rs1e nFivNr4dYABkFHW3VVBatGWc P6PfvA3fXrNkPVQpIWAuQ0Ow eHQt VItbK697RBpiQtV1GVPatmDl V0AeOJVlpXwhHzB6z7O8Tm4C T6X7OI04UC61mQZrh1C1eTX1 J3Bh ZSDlzmqsyygwrUU2LSNlVXKd tZ95Iy6kdNfpHn2yYIZsZZW6 JMTpuZRsZ2EglS6xDcCuPFKc MDAw M7AdeIMxYPsqU706UUllJmW8 RUYxusWoB2LgFAJxrWtdDlG6 d0I2Vb0ZOVw0AA01UN61cTPg c3R5 hIN3U5SlVAOvgviuubuagDU1 XERxUETyoE36Jj1fnKbaRm1e FTWlCFV3APIeeGAbW0ZydE3h OiAj VAOqWQQoL1UmnJNrLClbU682 LQacNnX2BJVgzjXqD4KeQZVg eBlxImW3k0O8Nj0EPMStUP47 IFR5 nAA6PJ69UU10J3RuTrmjgOFu bGU+PHRhYmxlIHdpZHRoPScx XSBoXzRenEvbLB0bQv6uKUWi LWNv eOembPIuGlEyw4lcRFAcKWia MJ9atBdtA9HjuID8QWAfm6b6 Ng66A55mW0GzxEU+PGNvbCB3 aWR0 lF3wOqRaXiD9BDqpF130GhMe fNJqFbtci1ydy5bhtKg4ZiL8 DGCdjnSynUuzCKY7c7OhGc06 Y29s IHdpZHRoPSIxNSUiIHZhbGln en8huR9zJw8+SMKwjAA1vQT2 eO1dJgKsBdA9YKbqB983XeOs cCIv Rmgxq7qyo0wasYr4NyQkICIn piUafFlbZOJ6z0ZjHc68N0Jk vRpml2NpFmd5hj13oIMmz1U1 bGU9 S3JpFNEyeieloTDayWxvWR2p NJHforbdHXMxzL7tJNMhA0a0 XmFyGcU1UDpoJ1NifoE2VJSa cHQg WJneSOA1K20hs5G3WGVrEPMb LDL0eJQ5aL7zlPsycpkhfMIg eCboywJjiRcxCXrbNOotW367 IHRv rNleAIGnkD1jJAPbiPLlxOdm XV0vXPIdpagbOj9ULCoSXVuv Dv2CVJlikVD+SXFvFRN6gTqp PSdw KQLuiV1xGBYrX1r5GfKsCyF7 WIfvG3LmKAKenpkaOp11tY7m RoZoVuV1IEbkS3GtokT7VQFr cHQg RAozWPS1C73eq0U1BIWhVXLm IOS6bFZ8tH9hqQrrqvvzwHTp cSdydfFhtQwdNYcoPOfkG397 IHRv eZpwKlSoNdX2NqR7XMV9Q3Hv Koe0PTNzwFmuLL9rgAUaQPlt Hs4rgKdenPvkXY1qOEKfoysi YWRk jD5dNRUydAKdsCjtTM5zNLLh wkjow945BkWgJOL2LJXwtIQo L9ZxpE3yNjXnMVLhAHAkV4Zo eHQt YVwkD067KJjbPcQ3LKUarnKy E1IjCWUubFmpWvS4m4E1Ib99 NiBZZWFyczwvdGQ+PHRkIHN0 eWxl TDidBPIfbP1pXMPtB9u6AvJw FfC3QSpqW6QaTZKvdmifHt98 dU3nHvGaYoV9IAevR7IdumA8 IDEw fEOkADnsKCH6X68aw0B1UPGn ATYtKZZ1xAJ9vP3lpUogewzi bGVmdDsgdmVydGljYWwtYWxp Z246 IHRvcDsnPkZlbWFsZTwvdGQ+ QBIlWTN8vTsfMNeaDWFjaR5n AXXhT9r7WwHzTlX2AItpV8Tl ZGRp ercvVv78zO8tYzQsGeK7DDis T4UpbcN1AVUsgPMuIYbbYPA5 I33av4R6ZQKpAPPbAUU0zBA2 dC1h bGlnbjogbGVmdDsgdmVydGlj EAlhGZtrM591LMIddWeiOf41 bEQolZlarqC1K8PlTqnwhJF+ PC90 FAHqMS64oZIzcSWso3sofUs9 PdVoTYEfOAH0zOdkJMdju9Tq EQVeO70vyZQed5E7GYIucMbb cHNl PwMfnZD8uL9hAEthdkikm9fa zjvnDklfj9moqo89xX28A09h IHdpZHRoPSIzMCUiIHZhbGln bj0i lY8oYw9+HILpfPX2dNG2jT7a HuBgBsS2LFfbF466TgEipTQz Gysyz5bkv1wiqQh4TpVcHCFr dmFs oIqiSJM9z6FsKc32H15kPBvc MVTyTEZjKDBnMZRugGvyqe9v cR0hQm9+CW8ky2qoxn44lW78 dHI+ GDKpMWK0iEtsYXwsTEJzzX4r BYgpOgD8JQThEsKixB02nOFi DMejBv9toQcdhUehHM5aGZXj bjtm v178KiTqb1gdSVApfTEkNMhu FNJ4U42kd9L8DFIkFBIwSYE2 rTC6pU2tqSjbxghwcFJucZhd dmVy iDowJHaxEGngR940ACCtzLga VvIgqLJuR8igvaCGYW2uSjje dGQ+GQGoXDB1rLhdYPdbFRXr aW5n VDUoK7h1FkEpPmK5NJmtR8Ni plD5ZUMcyNMxWHZcmRQOpQ3r baict0nlduanCkDzCTLeAFo3 ZXh0 QJRokYjkHgTuWVI3VnZ6ASY0 mJAxhZ3fqOteffwanH9iUeq+ RklOOjwvdGQ+QIBaBQJ6rMfi PSdw XQAmhW8wDZWmT6g0WqAyWbB9 OUqhR0AhqpZ9PQGipPIdINDv zGFNiM8xxqjtr6nzojoxFjOr MDAw FIz7SJt1OMSngZmwLxGpYKG2 FpN6WQD2tWJycY0drGdtvdqs oZ1zIju+TVJOOjwvdGQ+PHRk IHN0 lJcsQYktVTPttX2sSCTuD3c4 EyJgKmO5YYrhB5YvssG2ONPd zANcUJLjaMDTbE6jvdxlc0os cjog YsJhMPKhQXo0AQa0MFTrvVke UiChPXW5QeY8ZIR2pLTgbS8b fVnfsyubbA2xCwb+PLH7OAN0 PC90 QG78W5ArWayhxGXvuKX+PHRh YmxlIHdpZHRoPScxMDAlJyBz jUrcGW5zAq7kZOOcKUBdiXhm Nl OiBj (more content not included)... [facility] Consent for Treatmenton 09-08 Consent for Treatment [id number]: 127 [facility] H&P Updateon 09-19-2021 H&P Update [id number]: 127 [facility] Interdisciplinary Note - Nick e Manageron 09-19-2021 Interdisciplinary Note - Log Sorter CRM to discuss DC plans with patient. Patient is awake, alert and oriented. Patient participates in DC plans. Son is present in room. -PCP verified and insurance information reviewed and DME discussed. Medicare rights/ observation stay reviewed, forms signed. Contact information provided and white board updated. Patient is post op TKA . Pt and Ot recommendations pending. Patient is from home alone but will have someone stay with her for a few days. Patient says she does not have a FWW and was told that we would get her one while she was here. CRM called and left message on [employer] line as well as sent email to [employer] for the script for the walker to be sent to [facility] [place]. Plan is for DC 4.13. with [facility] program. CRM following [facility] Comment on above: Result Comment: Elec tronically Signed By: Payton Ordaz\.br\Date and Time Signed: 09/19/21 15:25 EDT Main OR PACU I Recordon 09-08 Main OR PACU I Record PACU Phase I Document Type FT Summary Primary Physician: Cas Severino DO Finalized Date/Time: 09/19/21 14:02:37 Pt. Name: ANNE KEMP/Sex: 1955 Female Med Rec #: [id number] Physician: Cas Severino DO Financial #: [id number] Pt. Type: O Room/Bed: [facility]/ Admit/Disch: 09/19/21 08:30:31 - Institution: Case Times PACU I FT Pre-Care Text: Identifies barriers to communication and implements measures to provide psychological support Develops individualized plan of care, and ensures continuity of care Maintains patient's dignity and privacy, and maintains patient confidentiality Identifies and reports philosophical, cultural, and spiritual beliefs and values Identifies individual values and wishes concerning care Implements aseptic technique, and administers prescribed antibiotic therapy and immunizing agents as ordered Evaluates postoperative tissue perfusion Implements thermoregulation measures, and monitors body temperature Evaluates postoperative respiratory status Evaluates postoperative cardiac status Evaluates postoperative neurological status Assesses pain control, collaborated in initiating patient-controlled analgesia and implements alternative methods of pain control Verifies allergies, administers prescribed medications and solutions, evaluates response to medications Entry 1 In PACU I 09/19/21 13:19:00 Discharge from PACU 09/19/21 13:49:00 I Outcomes Met? Yes Last Modified By: Jeni Norwood RN 09/19/21 14:02:26 Post-Care Text: The patient demonstrates knowledge of the expected response to the operative or invasive procedure The patient's care is consistent with the individualized perioperative plan of care The patient's right to privacy is maintained The patient's value system, lifestyle, ethnicity, and culture are considered, respected, and incorporated into the perioperative plan of care The patient participates in decisions affecting his or her perioperative plan of care The patient is free from signs and symptoms of infection The patient has wound/tissue perfusion consistent with or improved from baseline levels established preoperatively The patient is at or returning to normothermia at the conclusion of the immediate postoperative period The patient's respiratory function is consistent with or improved from baseline levels established preoperatively The patient's cardiovascular status is consistent with or improved from baseline levels established preoperatively The patient's cardiovascular status is consistent with or improved from baseline levels established preoperatively The patient demonstrates and/or reports adequate pain control throughout the perioperative period The patient received appropriate medication(s), safely administered during the perioperative period Acuity Level PACU I FT Entry 1 Start Time 09/19/21 13:19:00 Stop Time 09/19/21 13:49:00 Acuity Level Acuity Level I Last Modified By: Jeni Norwood RN 09/19/21 14:02:34 Finalized By: Jeni Norwood RN Document Signatures Signed By: Jeni Norwood RN 09/19/21 14:[address] [facility] OR Preoperative Recordo n 09-19-2021 Main OR Preoperative Record PreOp Document Type FT Summary Primary Physician: Cas Severino DO A Finalized Date/Time: 09/19/21 12:11:01 Pt. Name: ANNE KEMP /Sex: 1955 Female Med Rec #: [id number] Physician: Cas Severino DO Financial #: [id number] Pt. Type: A Room/Bed: [facility]/ Admit/Disch: 09/19/21 08:30:31 - Institution: Case Times PreOp FT Pre-Care Text: Verifies consent for planned procedure, identifies individual values and wishes concerning care, includes family members in perioperative teaching Entry 1 Patient Times. In Pre Surgery 09/19/21 08:40:00 Out Pre Surgery 09/19/21 10:56:00 Outcomes Met? Yes Last Modified By: Gila Armas RN 09/19/21 12:10:59 Post-Care Text: The patient participates in decisions affecting his or her perioperative plan of care Finalized By: Gila Armas RN Document Signatures Signed By: Gila Armas RN 09/19/21 12:11 Normal [facility] Message from Medicareon 09-08 Message from Medicare [id number]: 127 [facility] Monitor Recordon 09-19-2021 Monitor Record [id number] :127 [facility] Patient Education - Texton 0 09-19-2021 Patient Education - Text Preventive Health Fall Prevention in the Home, Adult Falls can cause injuries. They can happen to people of all ages. There are many things you can do to make your home safe and to help prevent falls. Ask for help when making these changes, if needed. What actions can I take to prevent falls? General Instructions ? Use good lighting in all rooms. Replace any light bulbs that burn out. ? Turn on the lights when you go into a dark area. Use night-lights. ? Keep items that you use often in ylyo-wm-lncaj places. Lower the shelves around your home if necessary. ? Set up your furniture so you have a clear path. Avoid moving your furniture around. ? Do not have throw rugs and other things on the floor that can make you trip. ? Avoid walking on wet floors. ? If any of your floors are uneven, fix them. ? Add color or contrast paint or tape to clearly shaheen and help you see: ? Any grab bars or handrails. ? First and last steps of stairways. ? Where the edge of each step is. ? If you use a stepladder: ? Make sure that it is fully opened. Do not climb a closed stepladder. ? Make sure that both sides of the stepladder are locked into place. ? Ask someone to hold the stepladder for you while you use it. ? If there are any pets around you, be aware of where they are. What can I do in the bathroom? ? Keep the floor dry. Clean up any water that spills onto the floor as soon as it happens. ? Remove soap buildup in the tub or shower regularly. ? Use non-skid mats or decals on the floor of the tub or shower. ? Attach bath mats securely with double-sided, non-slip rug tape. ? If you need to sit down in the shower, use a plastic, non-slip stool. ? Install grab bars by the toilet and in the tub and shower. Do not use towel bars as grab bars. What can I do in the bedroom? ? Make sure that you have a light by your bed that is easy to reach. ? Do not use any sheets or blankets that are too big for your bed. They should not hang down onto the floor. ? Have a firm chair that has side arms. You can use this for support while you get dressed. What can I do in the kitchen? ? Clean up any spills right away. ? If you need to reach something above you, use a strong step stool that has a grab bar. ? Keep electrical cords out of the way. ? Do not use floor [place] or wax that makes floors slippery. If you must use wax, use non-skid floor wax. What can I do with my stairs? ? Do not leave any items on the stairs. ? Make sure that you have a light switch at the top of the stairs and the bottom of the stairs. If you do not have them, ask someone to add them for you. ? Make sure that there are handrails on both sides of the stairs, and use them. Fix handrails that are broken or loose. Make sure that handrails are as long as the stairways. ? Install non-slip stair treads on all stairs in your home. ? Avoid having throw rugs at the top or bottom of the stairs. If you do have throw rugs, attach them to the floor with carpet tape. ? Choose a carpet that does not hide the edge of the steps on the stairway. ? Check any carpeting to make sure that it is firmly attached to the stairs. Fix any carpet that is loose or worn. What can I do on the outside of my home? ? Use bright outdoor lighting. ? Regularly fix the edges of walkways and driveways and fix any cracks. ? Remove anything that might make you trip as you walk through a door, such as a raised step or threshold. ? Trim any bushes or trees on the path to your home. ? Regularly check to see if handrails are loose or broken. Make sure that both sides of any steps have handrails. ? Install guardrails along the edges of any raised decks and porches. ? Clear walking paths of anything that might make someone trip, such as tools or rocks. ? Have any leaves, snow, or ice cleared regularly. ? Use sand or salt on walking paths during winter. ? Clean up any spills in your garage right away. This includes grease or oil spills. What other actions can I take? ? Wear shoes that: ? Have a low heel. Do not wear high heels. ? Have rubber bottoms. ? Are comfortable and fit you well. ? Are closed at the toe. Do not wear open-toe sandals. ? Use tools that help you move around (mobility aids) if they are needed. These include: ? Canes. ? Walkers. ? Scooters. ? Crutches. ? Review your medicines with your doctor. Some medicines can make you feel dizzy. This can increase your chance of falling. Ask your doctor what other things you can do to help prevent falls. Where to find more information ? Centers for Disease Control and Prevention, [employer]: https://cdc.gov ? National [employer]: https://vb0kppu.bryson.nih. gov Contact a doctor if: ? You are afraid of falling at home. ? You feel weak, drowsy, or dizzy at home. ? You fall at home. Summary ? There are many simple things that you can do to make yo (more content not included)... Normal [facility] Progress Note-Physicianon Progress Note-Physician Patient: ANNE KEMP Age: 66 years Sex: Female : 1955 Associated Diagnoses: None Author: Luis M Delgado CRNA Postoperative Information Post Operative Note: Post Anesthesia Care Unit. Anesthetic utilized: General, Monitored anesthesia care. Health Status Allergies: Allergic Reactions (Selected) Severity Not Documented Penicillin- Hives. Nonallergic Reactions (Selected) Severity Not Documented Codeine- Nausea. Current medications: (Selected) Inpatient Medications Ordered Colace 100 mg Cap: 100 mg = 1 cap(s), Cap, Oral, BID, Routine, Start date 09/19/21 21:00:00 EDT, 09/19/21 12:00:00 EDT Dulcolax 5 mg Tab-EC: 10 mg = 2 tab(s), Tab-EC, Oral, Daily PRN Constipation, Routine, Start date 09/21/21 12:00:00 EDT, 09/21/21 12:00:00 EDT HYDROmorphone 1 mg/mL injectable solution: 0.4 mg = 0.4 mL, Injection, IV Push, q4min PRN Pain for 5 dose(s), Stop date Limited # of times, Routine, Start date 09/19/21 12:14:00 EDT, 09/19/21 12:14:00 EDT Lactated Ringers IV Armida 1000 mL 1,000 mL: 1,000 mL, IV, 100 mL/hr, Routine, Start date 09/19/21 12:14:00 EDT, 10 hour(s), Total volume (mL): 1,000, 73 kg, 1.86, m2 Lactated Ringers IV Armida 1000 mL 1,000 mL: 1,000 mL, IV, 150 mL/hr, Routine, Start date 09/19/21 8:30:00 EDT, 6.7 hour(s), Total volume (mL): 1,000, 73 kg, 1.86, m2 Lactated Ringers IV Armida 1000 mL 1,000 mL: 1,000 mL, IV, 80 mL/hr, Routine, Start date 09/19/21 12:00:00 EDT, 12.5 hour(s), Total volume (mL): 1,000, 73 kg, 1.86, m2 Milk of Magnesia 8% Susp-Oral: 30 mL, Susp-Oral, Oral, BID PRN Constipation, Routine, Start date 09/19/21 12:00:00 EDT Pantoprazole [address] Tab: 40 mg = 1 tab(s), Tab-DR, Oral, Daily, Routine, Start date 09/20/21 9:00:00 EDT, 09/19/21 12:00:00 EDT Phenergan 25 mg/mL Injection: 12.5 mg = 0.5 mL, Injection, IV Push, q2min PRN Other (see comment) for 2 dose(s), Stop date Limited # of times, Routine, Start date 09/19/21 12:14:00 EDT, 09/19/21 12:14:00 EDT Vitamin C 500 mg Tab: 500 mg = 1 tab(s), Tab, Oral, BIDWM, Routine, Start date 09/19/21 17:00:00 EDT, 09/19/21 12:00:00 EDT Zofran 4 mg/2 mL Injection: 4 mg = 2 mL, Injection, IV Push, q6hr PRN Nausea/Vomiting, Routine, Start date 09/19/21 12:00:00 EDT, 09/19/21 12:00:00 EDT aspirin 81 mg Oral EC Tab: 81 mg = 1 tab(s), Tab-EC, Oral, BIDWM for 30 day(s), Stop date 10/20/21 7:59:00 EDT, Routine, Start date 09/20/21 8:00:00 EDT cefazolin additive + premix generic diluent 100 mL: 2 gram = 100 mL, IV Piggyback, q8hr for 2 dose(s), Stop date 09/20/21 3:59:00 EDT, Routine, Start date 09/19/21 12:00:00 EDT, 200 mL/hr, Infuse over 30 minute(s), 09/19/21 12:00:00 EDT ferrous sulfate 325 mg Tab: 325 mg = 1 tab(s), Tab, Oral, BIDWM, Routine, Start date 09/19/21 17:00:00 EDT, 09/19/21 12:00:00 EDT morphine 2 mg/mL Inj: 2 mg = 1 mL, Injection, IV, q4hr PRN Pain 8-10 for 5 day(s), Stop date 09/24/21 11:59:00 EDT, Routine, Start date 09/19/21 12:00:00 EDT, 09/19/21 12:00:00 EDT oxyCODONE 5 mg Tab: 10 mg = 2 tab(s), Tab, Oral, q4hr PRN Pain 8-10 for 5 day(s), Stop date 09/24/21 11:59:00 EDT, Routine, Start date 09/19/21 12:00:00 EDT, 09/19/21 12:00:00 EDT oxyCODONE 5 mg Tab: 5 mg = 1 tab(s), Tab, Oral, q4hr PRN Pain 8-10 for 5 day(s), Stop date 09/24/21 11:59:00 EDT, Routine, Start date 09/19/21 12:00:00 EDT, 09/19/21 12:00:00 EDT Prescriptions Prescribed Aspirin 81 mg Tab-EC: 81 mg = 1 tab(s), Oral, BIDPC, # 60 tab(s), Refills(s) 0, [facility], 170, cm, 09/18/21 6:21:00 EDT, Height/Length Dosing, 73, kg, 09/18/21 6:21:00 EDT, Weight Dosing Colace 100 mg Cap: 100 mg = 1 cap(s), Oral, BID, PRN for constipation, # 40 cap(s), Refills(s) 0, Pharmacy: [facility] [place] [address], 170, cm, 09/18/21 6:21:00 EDT, Height/Length Dosing, 73, kg, 09/18/21 6:21:00 EDT, Weight Dosing oxyCODONE 5 mg Tab: 5 mg = 1 tab(s), Oral, q6hr, 1-2 po q4-6 hrs prn pain Dx: M17.12, Z96.652 Duration: 7days Disregard si po q6hr prn pain, # 40 tab(s), Refills(s) 0, Pharmacy: [facility], 170, cm, 09/18/21 6:21:00 EDT, Height/Length Dosing, 73, k... Documented Medications Documented Fish Oil: 1,000 mg, Oral, Daily, Refill(s) 0, Prophylaxis Lopressor 25 mg oral tablet: 25 mg = 1 tab(s), Oral, Daily, Refills(s) 0, High blood pressure Vitamin B Complex oral capsule: 1 cap(s), Oral, Daily, Refill(s) 0, Prophylaxis Vitamin C 1000 mg oral tablet: 1,000 mg = 1 tab(s), Oral, Daily, Refills(s) 0, Prophylaxis Vitamin D 1000 intl units (25 mcg) Tab: 25 mcg = 1 tab(s), Oral, Daily, Refills(s) 0, Prophylaxis ashwaganda/dev root: ashwaganda/dev root, Oral, Daily cannabidiol: Oral, Daily, Prophylaxis hydroxychloroquine 200 mg Tab: 200 mg = 1 tab(s), Oral, Daily, Refills(s) 0, Arthritis lamotrigine 200 mg Tab: 200 mg = 1 tab(s), Oral, BID, Refills(s) 0, Other (see comment) turmeric 500 mg oral capsule: 500 mg = 1 cap(s), Oral, Daily, Refills(s) 0, Prophylaxis venlafaxine 150 mg Cap-ER: 150 mg = 1 cap(s), Oral, Daily, Refills( (more content not included)... Normal [facility] Comment on above: Result Comment: Elec tronically Signed By: Luis M Delgado CRNA.br\Date and Time Signed: 09/19/21 13:53 EDT Progress Note-Physician Patient: ANNE KEMP Age: 66 years Sex: Female : 1955 Associated Diagnoses: None Author: Cas Severino DO Postoperative Information Procedure: L knee hardware removal, conversion to TKA Preoperative Diagnosis: L failed UKA secondary to OA, s/p UKA. Postoperative Diagnosis: same. Performed by: erick. [employer] Former: pawel. Specimens Removed: hardware, bone, soft tissue. Prosthesis: Fany. . Estimated Blood Loss: 0 ml. Complications: None. Anesthesia type: Spinal, add canal block. Normal [facility] Comment on above: Result Comment: Elec tronically Signed By: Cas Severino DO\.br\Date and Time Signed: 09/19/21 13:31 EDT Progress Note-Physician Patient: ANNE KEMP Age: 66 years Sex: Female : 1955 Associated Diagnoses: None Author: Luis M Delgado CRNA Review of Systems Constitutional: Negative. Health Status Allergies: Allergic Reactions (Selected) Severity Not Documented Penicillin- Hives. Nonallergic Reactions (Selected) Severity Not Documented Codeine- Nausea., Allergies (2) Active Reaction codeine nausea penicillin hives Current medications: (Selected) Inpatient Medications Ordered Colace 100 mg Cap: 100 mg = 1 cap(s), Cap, Oral, BID, Routine, Start date 09/19/21 21:00:00 EDT, 09/19/21 12:00:00 EDT Dulcolax 5 mg Tab-EC: 10 mg = 2 tab(s), Tab-EC, Oral, Daily PRN Constipation, Routine, Start date 09/21/21 12:00:00 EDT, 09/21/21 12:00:00 EDT Lactated Ringers IV Armida 1000 mL 1,000 mL: 1,000 mL, IV, 150 mL/hr, Routine, Start date 09/19/21 8:30:00 EDT, 6.7 hour(s), Total volume (mL): 1,000, 73 kg, 1.86, m2 Lactated Ringers IV Armida 1000 mL 1,000 mL: 1,000 mL, IV, 80 mL/hr, Routine, Start date 09/19/21 12:00:00 EDT, 12.5 hour(s), Total volume (mL): 1,000, 73 kg, 1.86, m2 Milk of Magnesia 8% Susp-Oral: 30 mL, Susp-Oral, Oral, BID PRN Constipation, Routine, Start date 09/19/21 12:00:00 EDT Pantoprazole [address] Tab: 40 mg = 1 tab(s), Tab-DR, Oral, Daily, Routine, Start date 09/20/21 9:00:00 EDT, 09/19/21 12:00:00 EDT Sodium Chloride 0.9% IV Armida 50 mL (INT): 50 mL, Soln-IV, IntraLesional, Once, Stop date 09/19/21 12:00:00 EDT, Routine, Start date 09/19/21 12:00:00 EDT Vitamin C 500 mg Tab: 500 mg = 1 tab(s), Tab, Oral, BIDWM, Routine, Start date 09/19/21 17:00:00 EDT, 09/19/21 12:00:00 EDT Zofran 4 mg/2 mL Injection: 4 mg = 2 mL, Injection, IV Push, q6hr PRN Nausea/Vomiting, Routine, Start date 09/19/21 12:00:00 EDT, 09/19/21 12:00:00 EDT aspirin 81 mg Oral EC Tab: 81 mg = 1 tab(s), Tab-EC, Oral, BIDWM for 30 day(s), Stop date 10/20/21 7:59:00 EDT, Routine, Start date 09/20/21 8:00:00 EDT bupivacaine liposome 1.3% (13.3 mg/mL) injectable suspension: 266 mg = 20 mL, Injection, IntraLesional, Once, Stop date 09/19/21 12:00:00 EDT, Routine, Start date 09/19/21 12:00:00 EDT, 09/19/21 11:49:00 EDT bupivacaine-epinephrine 0.25%-1:200,000 PF Inj 30 mL: 75 mg, 30 mL, Injection, IntraLesional, Once, Stop date 09/19/21 12:00:00 EDT, Routine, Start date 09/19/21 12:00:00 EDT cefazolin additive + premix generic diluent 100 mL: 2 gram = 100 mL, IV Piggyback, q8hr for 2 dose(s), Stop date 09/20/21 3:59:00 EDT, Routine, Start date 09/19/21 12:00:00 EDT, 200 mL/hr, Infuse over 30 minute(s), 09/19/21 12:00:00 EDT ferrous sulfate 325 mg Tab: 325 mg = 1 tab(s), Tab, Oral, BIDWM, Routine, Start date 09/19/21 17:00:00 EDT, 09/19/21 12:00:00 EDT morphine 2 mg/mL Inj: 2 mg = 1 mL, Injection, IV, q4hr PRN Pain 8-10 for 5 day(s), Stop date 09/24/21 11:59:00 EDT, Routine, Start date 09/19/21 12:00:00 EDT, 09/19/21 12:00:00 EDT oxyCODONE 5 mg Tab: 10 mg = 2 tab(s), Tab, Oral, q4hr PRN Pain 8-10 for 5 day(s), Stop date 09/24/21 11:59:00 EDT, Routine, Start date 09/19/21 12:00:00 EDT, 09/19/21 12:00:00 EDT oxyCODONE 5 mg Tab: 5 mg = 1 tab(s), Tab, Oral, q4hr PRN Pain 8-10 for 5 day(s), Stop date 09/24/21 11:59:00 EDT, Routine, Start date 09/19/21 12:00:00 EDT, 09/19/21 12:00:00 EDT tranexamic acid 100 mg/mL intravenous solution: 2,000 mg = 20 mL, Injection, Misc, Once, Stop date 09/19/21 12:00:00 EDT, Routine, Start date 09/19/21 12:00:00 EDT, To be given to the field for injection into the operative site during the procedure. Prescriptions Prescribed Aspirin 81 mg Tab-EC: 81 mg = 1 tab(s), Oral, BIDPC, # 60 tab(s), Refills(s) 0, Pharmacy: [address], [address], cm, 09/18/21 6:21:00 EDT, Height/Length Dosing, 73, kg, 09/18/21 6:21:00 EDT, Weight Dosing Colace 100 mg Cap: 100 mg = 1 cap(s), Oral, BID, PRN for constipation, # 40 cap(s), Refills(s) 0, Pharmacy: [address], [address], cm, 09/18/21 6:21:00 EDT, Height/Length Dosing, 73, kg, 09/18/21 6:21:00 EDT, Weight Dosing oxyCODONE 5 mg Tab: 5 mg = 1 tab(s), Oral, q6hr, 1-2 po q4-6 hrs prn pain Dx: M17.12, Z96.652 Duration: 7days Disregard si po q6hr prn pain, # 40 tab(s), Refills(s) 0, Pharmacy: [facility] [place], [address], cm, 09/18/21 6:21:00 EDT, Height/Length Dosing, 73, k... Documented Medications Documented Fish Oil: 1,000 mg, Oral, Daily, Refill(s) 0, Prophylaxis Lopressor 25 mg oral tablet: 25 mg = 1 tab(s), Oral, Daily, Refills(s) 0, High blood pressure Vitamin B Complex oral capsule: 1 cap(s), Oral, Daily, Refill(s) 0, Prophylaxis Vitamin C 1000 mg oral tablet: 1,000 mg = 1 tab(s), Oral, Daily, Refills(s) 0, Prophylaxis Vitamin D 1000 intl units (25 mcg) Tab: 25 mcg = 1 tab(s), Oral, Daily, Refills(s) 0, Prophylaxis ashwaganda/dev root: ashwaganda/dev root, Oral, Daily cannabidiol: Oral, Daily, Prophylaxis hydroxychloroquine 200 mg Tab: 200 mg = 1 tab(s), Oral, Daily, Refills(s) 0, Arthritis lamotrigine 200 mg Tab: 200 mg = 1 tab(s), Oral, BID, (more content not included)... Normal [facility] Comment on above: Result Comment: Elec tronically Signed By: Luis M Delgado CRNA\Date and Time Signed: 09/19/21 12:13 EDT UA With Cult Reflexon 2021 Bacteria LM Ql (Urine sed) TRACE Normal Trace [facility] Comment on above: Performed By: #### 1 [id number] #### [facility] [address] [place] [address] Bilirubin Ql (U) Negative Normal Negative [facility] Comment on above: Performed By: #### 1 [id number] #### [facility] [address] [place] [address] Clarity (U) CLEAR Normal Clear [facility] Comment on above: Performed By: #### 1 [id number] #### [facility] [address] [place] [address] Color (U) STRAW Abnormal Yellow [facility] Comment on above: Performed By: #### 1 [id number] #### [facility] [address] [place] [address] Crystals LM Ql (Urine sed) Present Normal [facility] Comment on above: Performed By: #### 1 [id number] #### [facility] [address] [place] [address] Epithelial cells.squamous LM.HPF (Urine sed) [#/Area] 0-2 Normal 0-2 [facility] Comment on above: Performed By: #### 1 [id number] #### [facility] [address] [place] [address] Glucose Test strip (U) [Mass/Vol] Negative Normal Negative [facility] Comment on above: Performed By: #### 1 [id number] #### [facility] [address] [place] [address] Hemoglobin Ql (U) Negative Normal Negative [facility] Comment on above: Performed By: #### 1 [id number] #### [facility] [address] [place] [address] Ketones (U) [Mass/Vol] Negative Normal Negative [facility] Comment on above: Performed By: #### 1 [id number] #### [facility] [address] [place] [address] [place].plasma/Lithi um.RBC (Bld) [Mass ratio] 0-3 Normal 0-3 [facility] Comment on above: Performed By: #### 1 [id number] #### [facility] [address] [place] [address] Nitrite Ql (U) Negative Normal Negative [facility] Comment on above: Performed By: #### 1 [id number] #### [facility] [address] [place] [address] pH (U) 6.0 [pH] Invalid Interpretation Code 5.0-9.0 [facility] Comment on above: Performed By: #### 1 [id number] #### [facility] [address] [place] [address] Protein (U) [Mass/Vol] Negative Normal Negative [facility] Comment on above: Performed By: #### 1 [id number] #### [facility] [address] [place] [address] Specific gravity (U) [Rel density] 1.015 Invalid Interpretation Code 1.005-1.030 [facility] Comment on above: Performed By: #### 1 [id number] #### [facility] [address] [place] [address] Type of Urine collection method Martin Normal [facility] Comment on above: Performed By: #### 1 [id number] #### [facility] [address] [place] [address] Urobilinogen Qn (U) 0.2 {Becca'U}/dL Normal 0.0-1.0 [facility] Comment on above: Performed By: #### 1 [id number] #### [facility] [address] [place] [address] WBC Auto Ql (U) Negative Normal Negative [facility] Comment on above: Performed By: #### 1 [id number] #### [facility] [address] [place] [address] WBC LM.HPF (Urine sed) [#/Area] 0-5 Normal 0-5 [facility] Comment on above: Performed By: #### 1 [id number] #### [facility] [address] [place] [address] URINALYSISOrdered By: Víctor starks on 09-19-2021 Bacteria LM Ql (Urine sed) Trace /HPF Normal Trace/HPF [facility] UA Auto SS Bilirubin Ql (U) Negative (09/19/21 11:50 AM) Normal Negative [facility] UA Auto SS Clarity (U) Clear (09/19/21 11:50 AM) Normal Clear [facility] UA Auto SS Color (U) Straw *ABN* (09/19/21 11:50 AM) Invalid Interpretation Code Yellow [facility] UA Auto SS Crystals LM Ql (Urine sed) Present (09/19/21 11:50 AM) Normal [facility] UA Auto SS Epithelial cells.squamous LM.HPF (Urine sed) [#/Area] 0-2 /HPF Normal 0-2/HPF [facility] UA Auto SS Glucose Test strip (U) [Mass/Vol] Negative (09/19/21 11:50 AM) Normal Negative [facility] UA Auto SS Hemoglobin Ql (U) Negative (09/19/21 11:50 AM) Normal Negative [facility] UA Auto SS Ketones (U) [Mass/Vol] Negative (09/19/21 11:50 AM) Normal Negative [facility] UA Auto SS [place].plasma/Lithi um.RBC (Bld) [Mass ratio] 0-3 /HPF Normal 0-3/HPF [facility] UA Auto SS Nitrite Ql (U) Negative (09/19/21 11:50 AM) Normal Negative [facility] UA Auto SS pH (U) 6.0 *NA* (09/19/21 11:50 AM) Invalid Interpretation Code 5.0 - 9.0 [facility] UA Auto SS Protein (U) [Mass/Vol] Negative (09/19/21 11:50 AM) Normal Negative [facility] UA Auto SS Specific gravity (U) [Rel density] 1.015 *NA* (09/19/21 11:50 AM) Invalid Interpretation Code 1.005 - 1.030 [facility] UA Auto SS UA Spec Desc Martin (09/19/21 11:50 AM) Normal [facility] [place] UA Auto SS Urobilinogen Qn (U) 0.2710991 {Becca'U}/dL Normal 0.0 - 1.0 EU/dL [facility] [place] UA Auto SS WBC Auto Ql (U) Negative (09/19/21 11:50 AM) Normal Negative [facility] [place] UA Auto SS WBC LM.HPF (Urine sed) [#/Area] 0-5 /HPF Normal 0-5/HPF [facility] [place] UA Auto SS XR Knee 1 or 2 Views Lefton 09-19-2021 XR Knee 1 or 2 Views Left Exam Date/Time: 09/19/2021 13:37 EDT Reason for Exam: Post-op evaluation;Other (please specify) Report IMPRESSION: IMPRESSION: LEFT TOTAL KNEE REPLACEMENT. CLINICAL INFORMATION: Postop COMMENT: 2 views. There is a left total knee prosthesis, in good position and alignment. There is gas in the soft tissues from the surgery. There are metallic surgical desire associated with the skin incision. FINAL REPORT Dictated: 09/19/2021 1:46 pm Gunnar Claros M.D. Signed (Electronic Signature): 09/19/2021 1:46 pm Signed by: Gunnar Claros M.D. Transcribed by: KAREN Technologist: NICOLLE Normal [facility] Consent for Procedure/Surger yon 09-18-2021 Consent for Procedure/Surgery [id number] :127 Normal [facility] XR Chest 2 Viewson 2 XR Chest 2 Views Exam Date/Time: 09/15/2021 17:52 EDT Reason for Exam: PST Report IMPRESSION: THERE ARE NO FOCAL INFILTRATES OR EFFUSIONS. CLINICAL HISTORY: PST COMPARISON: NONE. FINDINGS: The cardiomediastinal silhouette is unremarkable. The right lung is unremarkable. Mild increased linear markings in the left costophrenic recess may BE acute or chronic. There are healed posttraumatic deformities of the left ribs. FINAL REPORT Dictated: 09/16/2021 10:51 am Conrado Nelson MD, V. Signed (Electronic Signature): 09/16/2021 10:51 am Signed by: Omar GAMEZ, Conrado Verduzco Transcribed by: KAREN Technologist: FLORA Normal [facility] ABO/Rh Retypeon 09-15-2021 ABO/Rh Retype Interp Positive Invalid Interpretation Code [facility] Comment on above: Performed By: #### 1 [id number] ####[facility] [address] [place] [address] BLOOD BANKOrdered By: Terri Escobar on 09-15-2021 ABO/Rh Retype Interp Positive Invalid Interpretation Code [facility] [place] BB Subsection BUNon 09-15-2021 Urea nitrogen [Mass/Vol] 15 mg/dL Normal 5-21 [facility] Comment on above: Performed By: #### 2 943425, 6370731, 83423631, 9121720, 0396414, 8534628 #### [facility] [address] [place] [address] CBC w/Indiceson 09-15-2021 Erythrocyte distribution width (RBC) [Ratio] 13.6 % Normal 10.9-14.2 [facility] Comment on above: Performed By: #### 2 566402, 3712639, 21340144, 7925898, 9925935, 9757037 #### [facility] [address] [place] [address] Hematocrit (Bld) [Volume fraction] 34.0 % Normal 34.0-46.0 [facility] Comment on above: Performed By: #### 2 082829, 2562421, 63851717, 8584831, 1705215, 2010240 #### [facility] [address] [place] [address] Hemoglobin (Bld) [Mass/Vol] 11.9 g/dL Low 12.0-16.0 [facility] Comment on above: Performed By: #### 2 757101, 4458215, 82099168, 2468490, 2633418, 5678394 #### [facility] [address] [place] [address] MCH (RBC) [Entitic mass] 31.5 pg Normal 27.0-34.0 [facility] Comment on above: Performed By: #### 2 878231, 1664623, 25298944, 8166955, 4389663, 9738294 #### [facility] [address] [place] [address] MCHC (RBC) [Mass/Vol] 35.0 g/dL Normal 31.4-36.0 [facility] Comment on above: Performed By: #### 2 102327, 9250080, 18961997, 3528309, 4565908, 9318956 #### [facility] [address] [place] [address] MCV (RBC) [Entitic vol] 89.9 fL Normal 80.0-100.0 [facility] Comment on above: Performed By: #### 2 086945, 2861310, 64574889, 6489603, 6733577, 4557198 #### [facility] [address] [place], [place] [address] Platelet mean volume (Bld) [Entitic vol] 6.5 fL Normal 6.4-10.8 [facility] Comment on above: Performed By: #### 2 578787, 4914162, 55159911, 0885033, 4137517, 2363100 #### [facility] [address] [place] [address] Platelets (Bld) [#/Vol] 343.0 E9/L Normal 150.0-500.0 [facility] Comment on above: Performed By: #### 2 962585, 6369180, 12235399, 8419752, 4627058, 6546122 #### [facility] [address] [place] [address] RBC (Bld) [#/Vol] 3.8 E12/L Low 4.3-5.9 [facility] Comment on above: Performed By: #### 2 973101, 4365779, 59156005, 0214103, 5119590, 6750808 #### [facility] [address] [place] [address] WBC corrected for nucl RBC Auto (Bld) [#/Vol] 4.8 E9/L Normal 4.0-11.0 [facility] Comment on above: Performed By: #### 2 725683, 6722339, 31762745, 8062631, 7235017, 7237040 #### [facility] [address] [place] [address] CHEMISTRYOrdered By: SYSTEM SYSTEM on 09-15-2021 Anion gap [Moles/Vol] 11 mmol/L Normal 6 - 16 mEq/L [facility] Chloride [Moles/Vol] 103 mmol/L Normal 101 - 1 11 mmol/L [facility] CO2 [Moles/Vol] 25 mmol/L Normal 21 - 31 mmol/L [facility] Creatinine [Mass/Vol] 0.8 mg/dL Normal 0.5 - 1.3 mg/dL [facility] [place] Remisol GFR/1.73 sq M.predicted among blacks MDRD (S/P/Bld) [Vol rate/Area] mL/min/1.73 m2 Normal >=59mL/min/ 1.73 m2 [facility] [place] Chem S GFR/1.73 sq M.predicted among non-blacks MDRD (S/P/Bld) [Vol rate/Area] mL/min/1.73 m2 Normal >=59mL/min/ 1.73 m2 [facility] [place] Chem S Glucose [Mass/Vol] 84 mg/dL Normal 55 - 199 mg/dL [facility] Potassium [Moles/Vol] 4.1 mmol/L Normal 3.5 - 5.3 mmol/L [facility] Sodium [Moles/Vol] 135 mmol/L Normal 135 - 145 mmol/L [facility] Urea nitrogen [Mass/Vol] 15 mg/dL Normal 5 - 21 mg/dL [facility] Consent for Treatmenton Consent for Treatment [id number]: 127 Normal [facility] Creatinineon 09-15-2021 Creatinine [Mass/Vol] 0.8 mg/dL Normal 0.5-1.3 [facility] Comment on above: Performed By: #### 2 202945, 2565477, 92097839, 2998281, 3676314, 9003256 ####[facility] [address] [place] [address] Glucoseon 09-15-2021 Glucose [Mass/Vol] 84 mg/dL Normal 55-199 [facility] Comment on above: Performed By: #### 2 764919, 6109543, 65427237, 3011450, 7993552, 8382687 #### [facility] [address] [place] [address] HEMATOLOGYOrdered By: Terri Escobar on 09-15-2021 Erythrocyte distribution width (RBC) [Ratio] 13.6 % Normal 10.9 - 14.2 % [facility] HemeAutoSS Hematocrit (Bld) [Volume fraction] 34.0 % Normal 34.0 - 46.0 % [facility] HemeAutoSS Hemoglobin (Bld) [Mass/Vol] 11.9 g/dL Low 12.0 - 16.0 gm/dL [facility] HemeAutoSS MCH (RBC) [Entitic mass] 31.5 pg Normal 27.0 - 34.0 pg [facility] HemeAutoSS MCHC (RBC) [Mass/Vol] 35.0 g/dL Normal 31.4 - 36.0 gm/dL [facility] HemeAutoSS MCV (RBC) [Entitic vol] 89.9 fL Normal 80.0 - 100.0 fL [facility] HemeAutoSS Platelet mean volume (Bld) [Entitic vol] 6.5 fL Normal 6.4 - 10.8 fL [facility] HemeAutoSS Platelets (Bld) [#/Vol] 343.0 E9/L Normal 150.0 - 500.0 E9/L [facility] HemeAutoSS RBC (Bld) [#/Vol] 3.8 E12/L Low 4.3 - 5.9 E12/L [facility] HemeAutoSS WBC corrected for nucl RBC Auto (Bld) [#/Vol] 4.8 E9/L Normal 4.0 - 11.0 E9/L [facility] HemeAutoSS Lyteson 09-15-2021 Anion gap [Moles/Vol] 11 mmol/L Normal 6-16 [facility] Comment on above: Performed By: #### 2 253946, 0220736, 52498427, 0742097, 4310782, 9738076 ####[facility] [address] [place] [address] Chloride [Moles/Vol] 103 mmol/L Normal 101-111 [facility] Comment on above: Performed By: #### 2 851502, 5987833, 03536489, 9614102, 2222465, 3823351 ####[facility] [address] [place] [address] CO2 [Moles/Vol] 25 mmol/L Normal 21-31 [facility] Comment on above: Performed By: #### 2 265826, 7220213, 13902667, 5975497, 1828907, 2925638 ####[facility] [address] [place] [address] Potassium [Moles/Vol] 4.1 mmol/L Normal 3.5-5.3 [facility] Comment on above: Performed By: #### 2 019829, 0600646, 98186771, 3801283, 4166830, 9262242 ####[facility] [address] [place] [address] Sodium [Moles/Vol] 135 mmol/L Normal 135-145 [facility] Comment on above: Performed By: #### 2 738139, 1672024, 62459886, 8713641, 9647956, 0112976 ####[facility] [address] [place] [address] UA With Cult Reflexon 2021 Bacteria LM Ql (Urine sed) TRACE Normal Trace [facility] Comment on above: Performed By: #### 1 1520527 ####[address] [place] [address] Bilirubin Ql (U) Negative Normal Negative [facility] Comment on above: Performed By: #### 1 2497740 ####[address] [place] [address] Clarity (U) CLEAR Normal Clear [facility] Comment on above: Performed By: #### 1 8013865 ####[facility] [address] [place] [address] Color (U) YELLOW Normal Yellow [facility] Comment on above: Performed By: #### 1 1791474 ####[facility] [address] [place] [address] Crystals LM Ql (Urine sed) Present Normal [facility] Comment on above: Performed By: #### 1 2560534 ####[facility] [address] [place] [address] Epithelial cells.squamous LM.HPF (Urine sed) [#/Area] 0-2 Normal 0-2 [facility] Comment on above: Performed By: #### 1 5891965 ####[facility] [address] [place] [address] Glucose Test strip (U) [Mass/Vol] Negative Normal Negative [facility] Comment on above: Performed By: #### 1 9599568 ####[facility] [address] [place] [address] Hemoglobin Ql (U) Negative Normal Negative [facility] Comment on above: Performed By: #### 1 3758423 ####[facility] [address] [place] [address] Ketones (U) [Mass/Vol] Negative Normal Negative [facility] Comment on above: Performed By: #### 1 2812609 ####[facility] [address] [place] [address] [place].plasma/Lithi um.RBC (Bld) [Mass ratio] 0-3 Normal 0-3 [facility] Comment on above: Performed By: #### 1 9690782 ####[facility] [address] [place] [address] Nitrite Ql (U) Negative Normal Negative [facility] Comment on above: Performed By: #### 1 9075334 ####[facility] [address] [place] [address] pH (U) 6.5 [pH] Invalid Interpretation Code 5.0-9.0 [facility] Comment on above: Performed By: #### 1 1047680 ####[address] [address] Protein (U) [Mass/Vol] Negative Normal Negative [facility] Comment on above: Performed By: #### 1 6662785 ####[place] [address] Specific gravity (U) [Rel density] <=1.005 Invalid Interpretation Code 1.005-1.030 [facility] Comment on above: Performed By: #### 1 8063412 ####[place] [address] Type of Urine collection method Clean Catch Normal [facility] Comment on above: Performed By: #### 1 [id number] ####[place] [address] Urobilinogen Qn (U) 0.2 {Becca'U}/dL Normal 0.0-1.0 [facility] Comment on above: Performed By: #### 1 9637532 ####[address] WBC Auto Ql (U) Negative Normal Negative [facility] Comment on above: Performed By: #### 1 3169021 ####[address] [address] WBC LM.HPF (Urine sed) [#/Area] 0-5 Normal 0-5 [facility] Comment on above: Performed By: #### 1 1224745 ####[address] [address] URINALYSISOrdered By: Colton Minor on 09-15-2021 Bacteria LM Ql (Urine sed) Trace /HPF Normal Trace/HPF [facility] UA Auto SS Bilirubin Ql (U) Negative (09/15/21 5:32 PM) Normal Negative [facility] UA Auto SS Clarity (U) Clear (09/15/21 5:32 PM) Normal Clear [facility] UA Auto SS Color (U) Yellow (09/15/21 5:32 PM) Normal Yellow [facility] UA Auto SS Crystals LM Ql (Urine sed) Present (09/15/21 5:32 PM) Normal [facility] UA Auto SS Epithelial cells.squamous LM.HPF (Urine sed) [#/Area] 0-2 /HPF Normal 0-2/HPF [facility] UA Auto SS Glucose Test strip (U) [Mass/Vol] Negative (09/15/21 5:32 PM) Normal Negative [facility] UA Auto SS Hemoglobin Ql (U) Negative (09/15/21 5:32 PM) Normal Negative [facility] UA Auto SS Ketones (U) [Mass/Vol] Negative (09/15/21 5:32 PM) Normal Negative [facility] UA Auto SS [place].plasma/Lithi um.RBC (Bld) [Mass ratio] 0-3 /HPF Normal 0-3/HPF [facility] UA Auto SS Nitrite Ql (U) Negative (09/15/21 5:32 PM) Normal Negative [facility] UA Auto SS pH (U) 6.5 *NA* (09/15/21 5:32 PM) Invalid Interpretation Code 5.0 - 9.0 [facility] UA Auto SS Protein (U) [Mass/Vol] Negative (09/15/21 5:32 PM) Normal Negative [facility] UA Auto SS Specific gravity (U) [Rel density] <=1.005 *NA* (09/15/21 5:32 PM) Invalid Interpretation Code 1.005 - 1.030 [facility] UA Auto SS UA Spec Desc Clean Catch (09/15/21 5:32 PM) Normal [facility] UA Auto SS Urobilinogen Qn (U) 0.5211557 {Becca'U}/dL Normal 0.0 - 1.0 EU/dL [facility] UA Auto SS WBC Auto Ql (U) Negative (09/15/21 5:32 PM) Normal Negative [facility] UA Auto SS WBC LM.HPF (Urine sed) [#/Area] 0-5 /HPF Normal 0-5/HPF [facility] UA Auto SS eGFRon 09-15-2021 GFR/1.73 sq M.predicted among blacks MDRD (S/P/Bld) [Vol rate/Area] mL/min/{1.73_m2} Normal >=59 [facility] Comment on above: Order Comment: Order added by Discern Expert. Result Comment: eGFR is race adjusted. AA=. Performed By: #### 2 615845, 8162979, 91637922, 2120617, 6181144, 5675348 #### [facility] [address] [place] [address] GFR/1.73 sq M.predicted among non-blacks MDRD (S/P/Bld) [Vol rate/Area] mL/min/{1.73_m2} Normal >=59 [facility] Comment on above: Order Comment: Order added by Discern Expert. Result Comment: Auto Repair Technician josesito kidney disease could be indicated at eGFR's of less than 60 mL/min/1.73m2. Kidney failure is indicated at less than 15 mL/min/1.73m2. Performed By: #### 2 531870, 1368877, 05098364, 1075359, 8577786, 5651137 #### [facility] [address] [place] [address] COVID-19 ([facility])on 09-13-2021 SARS-CoV-2 (COVID-19) RNA RANGEL+probe Ql (Resp) Not detected Normal Not Detected [facility] Comment on above: Result Comment: This test result should be correlated with clinical presentations and medical history by a healthcare provider to determine its clinical significance. This assay was performed by a reverse transcriptase real-time polymerase chain reaction (rt PCR) method on the [employer] system. This test has been authorized only for the detection of nucleic acid from SARS-CoV-2, not for any other viruses or pathogens. This test has not been FDA cleared or approved. This test has been authorized by FDA under an Emergency Use Authorization (EUA). This test is only authorized for the duration of time the declaration on that circumstances exist justifying the authorization emergency use of in vitro diagnostic tests for detection and/or diagnosis of COVID-19 infection under section 564 (b) (1) of the Act, 21 U.S.C. 360 bbb-3 (b) (1), unless authorization is terminated or revoked sooner. Performed By: #### 2 [id number] #### [facility] [address] [place] [address] SARS-CoV-2 (COVID-19) RNA RANGEL+probe Ql (Unsp spec) Pass Normal Pass [facility] Comment on above: Performed By: #### 2 [id number] #### [facility] [address] [place] [address] Specimen source Nom (Unsp spec) Nasal Normal [facility] Comment on above: Performed By: #### 2 [id number] #### [facility] [address] [place] [address] Coding Summary.on 09-13-2021 Coding Summary. CD:[id number] Gh0b Ww+PGhlYWQ+NQ8IFSNcJ28ck REncF7MO4wFYT5HNLRGHOLDA A3CQY0sdKD9ZSbvQ4QhzrIb DummpXItNI24OVz5JMQ5tXov KKxiuE8chPJwO5d0AeDzRB86 rY90TTjaDHIaArV6DjRbksbw bWFy B4osSdAnbBRjRhh+PHRhYmxl IHdpZHRoPScxMDAlJyBzdHls RI4gMx7yXKCuUKHwoAowoRSc OiBj i8fpOUNsYLbuTG4lfZshA0Bj zHJ6YCWkr2d1Iu15yXN+PHRk QTG8rDytMZnkt410OoBiw5vv IDM3 pZXnNGrhHHA7X95tj6R7ETBw HSIrJFD3gUM6pL8qvDgluari H5HtgJBuOjL2JOQ7wRHqpN8w bGln ohsinH9zRyy+H46KDU6CVFHL VC0CDoe3F1DqFxbrxUD+PC90 ZCRtYH14kTWdcZCwz1posGr3 JzEw QMIcEWF6wIpdDSrtp6LrINCg X26qfCCwy7Z1NJKhgTtcoHKh CaIbuRC9lV6rSNjiqbcci4yb dzsn Axrpt1nuju25mD18A93tXVzh KFKvFRZ5TISjBWCwbQukjk1w tV4vOj8+GQlwp5vpb8nnfYm5 IjIw GKKpmtNfpDteTXL0a4FtAz65 Y2OdmWeag1SyGaz4fc56eJCw b5O1sLB3YZnjNVHigK2eSCex ZnQ6 BVYcShIhfF80ePBdBSnuPk8h mLopqQhxSV2gANTrytboMOPs sQ1fXEMioTJneLtyMQ1pFJPi bjtm u086NfDhZSS2PZHokLLmD8Fs tB6zCaIlXPIeKZRtG0NhsDDd NZgeP385CNapEdM8XCFmzpSm Y2Fs HMXjkOnpUbJ2w3J2Os7We0Lk puczHFY1HCzuCNL7MxP6LlDo QjI9E7QvFvq5ITKygAuwIK0c J3Bh MWIwqlyegngfiYE9GBToQUGk yX56yRSkFQidHv6zg8V9i503 MQZcWIKggL36Kg8fnKwlIASu dCBU kP6vbmmst0jyaqdwKiWvTMBn WSh2HZy9DPSnsCieAgGcTON4 NnF4PDF3eKHomR6qiQtnvzct dG9w Oyc+W29eqU5yLSL8SBC7bqbb FJZcbcGcHX95AL19Q1TiHqkl dGFibGU+OGLebwAsvRftED2v YmFj n0fiw8YdNZpzP8GoSCVvUZmi Nku3NKJsQRS7yKJ5bF6qJKMn QZopr2U1gRF4B8NfkpUzhv0r b2xs GPPkMDdyL97eaMAac8I1VUCh zNP7OMXpeSnfEzQruY83Jfl+ VICfcEtmy5YiBymvo2jna5ba dGg9 HpZwFVRiflEsxMqcGZK8g6Ls Xr28P00yEThuMOBjGVVxWPVm OHUfdZprur3rhS8uIf0+PGNv bCB3 wBJ4qF4rLXFnVkU5BNpgK561 XkQyxQRaQuory2qme8mqfPa3 SyDoZSGvdbXayQclJMI7e2Tl Lz48 D55sWKmyECBbLRKkJQYvNOAt nMafvz5vnI9uDq7+ZD4tg6kt ak70rX89gIS+FAWeHUN2sSdj PSdw VREpuZ0dCJeaDxJ9FEFpAkYz oM00iIMoUEzcIv6jsKlceLvh ES9lYNRvjlffd262MnGbk2pl IDEw tTTxRDxkIVY4S18so7I0EPBl OMIsHLC1nXN3dI4caZimlzzw bGVmdDsgdmVydGljYWwtYWxp Z246 IHRvcDsnPlBhdGllbnQgTmFt KQl6R4RyTrl5GDUreHinPC6k xLGcPRgjOf7beJhnuAncZC3y NTBp qmdxq916KiBhy6hoEIGetLJo VHjcTGQ6W73pi3R0PFVcMVTk TUZ8hCT0oQ7pzJgzsueosHRh dDsg qvXrtCrjLNkdDEdqN585VAVx oMskJjTtmbZmPBXlpKN3CT81 PP45qDQeo8J3aBX5P3YzFOVe bmct ekbxxPL7QEXvNPPfpP54Ct6d uCfnKy7mBSIzKGE4EEYjgSHi Q7TapL7sVaVcGJNaEMUiP1Df eHQt UKrsO589NXivTyM4LWYnxbYl T0XzCNZwtJciYmZ8d5J9Cw7O G0E2QO84ZF45vXOlh5V5lKD7 J3Bh FWGxwckosqhfxKB6QRNcSIMf wU86Bj3eiVjsQm7eNOSuCVL8 MTEujIMaF5VejW5iFxRpVYPp MDAw Q8CgtLYrUZtsI815CWnyYsZ0 KKPhvjSvP5WiAQWyuMcpNuA2 k9H1Cl0SPDr2MM55EE16yDPo c3R5 jEJ4T5RbUUEtpajdxqitxZF2 MNEcRUOpxY45Xp6cpMqkKz6z KKJjBJA4LLYviKFsJ1SivJ1h OiAj KNUyAAIiV4KfpKMjQUaaS883 GVgcPgP1GHPvmxClI1FhMOLc cDwqHrX1f3Z1Xc0XHXSrXG76 IFR5 aNB1RC42RP59G2UnLrecyWSq bGU+PHRhYmxlIHdpZHRoPScx YQJkRsCdhSwmTJ1hVs5bOSWw LWNv bTbkeICeWrJcw5zuJCJrSWpv OU3hdClwW3ZgoNI5XIOli4t3 Sz50Z48eJ4DjwGK+PGNvbCB3 aWR0 gB6lQlTrRaJ8SXifW053MnXr qKHqWsknc9unp4ymgSn4HhX4 VZAdlwTlrSnnSLR5r5UdVf06 Y29s IHdpZHRoPSIxNSUiIHZhbGln zw1ieD6dAk3+HTXopHJ1oUS3 xX5tXnEpVqH9GBiaB682KbSu cCIv Crxyz2hbn4cmaQj6MtBzUOLf feAxxSsgSXV7k5WuYf59N9Kl qSaps5XbQhr6bg21yMTee4N1 bGU9 P8EkXOJzdlouhGDtpHzdAT4z NLPellqxPTKniQ1rOLCpB8v4 RkXjPhL9OFawO2RklgR4NYTs cHQg SBzkXML3I56iu5M4PQCoNZQr OUI0jMH0xU7hoUwospbogEQn sNzmznNvnXckHLijGCllT888 IHRv yKmyYCJjvP2uZRGodHPinEhk LY8zKSKovmddIz4KKOwYVIqr Uv3JHOvshIQ+WGPhQEB8lQkg PSdw SOWxgM9oPYJlU9f9ZkQgMzZ6 IQsxB0HzBOJbcrsuPi25bL2k YpBlQpQ0MRwuO7CkfwP2DMIz cHQg QFoyXUV6L01sc3S9DQIuKZNb JPP5nLG8sZ1zzWfceyuqoMRw fTlzrpYcsXsiEAinKFmzN967 IHRv iSyvKqXmGlP0JdQ5IZH0M2Ju Bwc9KXAydSwqQN6chMFyAPfy Ox0qmWviyRqlDS4zTQCqxlkt YWRk wU7zPYYekAPgnEesYE1aGSDh zttaw297NwPwZLV2MIErfVWw A4XvsC5uLuPmFVFzHVWyW0Km eHQt RUbtL463IIsmUjS5OGIhugKu W9OhDREzaRytShL0t4M9Yz31 NiBZZWFyczwvdGQ+PHRkIHN0 eWxl WPybSRFzfM9jHIOhD8g9MmQl TpR5MDucG7QkBEJoykksPa17 aQ8eEiKbJqX1NXzjM2KrdeG7 IDEw vGNyHYqpYWU2V03kf7E9BAAw EBMoCJP3lBJ1yR1zqKbdfhyn bGVmdDsgdmVydGljYWwtYWxp Z246 IHRvcDsnPkZlbWFsZTwvdGQ+ LOGsZTY0jFsaVYpsFPUhjF9o YBAxO1k8RqVgYbM1LXumM5Ae ZGRp eqxgTw63yM6oTbDoJjG8YDdl Q9BtznF6HLSicIJnYMaoVTV3 S08pe7V4UUCfELDmIHD6aDD8 dC1h bGlnbjogbGVmdDsgdmVydGlj EEniLPyqM900SPYcmWwzMgNy E4JxpavlFwzsyAX+VJ79jk39 L3Rh FrirZhh5ISUeOYF6sIC8bO9u WELyOXzhh9P9yDP1S9TknmVi kh7vt7elCNWtBZpqC94grXJj c2U7 OAIarPE9TCCqcGksCaExlY36 Oyc+WHJunNffj3EsFuwer9ur h2hioBk6JzGbXAGjekCdmPos PSJ0 u3DgAe93U78oJMejAOUzXJMc XWGmXXHunKpjuk3rjF6xDh9+ GUAueOF4vIA6tS3qQgSkVfE4 YWxp B158TzUmiGMgStljy5ixc9fo yCi4MhUuFXRgkeHjaJgaCRE3 f1SjXa37K2TqnBuvi7TsQrw5 cj48 kMYbn9X4yUE3J3WqGYOikdks yTHnkOkwCC7pRITfrbmsQBIu nF9fZXCnC3d1IlMzDeR2DSyp O2Zv glJ1TDBleWNoQLAbyAAEdS5n txlkl1pgjfriCfXtFXSzMVg0 LMb4SSSxzEpiViFlHNX9BvN5 ZXJ0 hIMzrY0ztFryrbgbyY0aJjr+ BRj5w3mloCHxLS0rmVQ0RL23 QY91iCWfq8O3lWB0G7TbTIVb bmct akfoePF9FEVrHLIurW78Ez7x sUbkUs8qEAJrGHW9LFBvdNRl F2DwxL3jWbKkPHYxITHhF6Jd eHQt JFutQ442CFvdGiT9YPUogyHz I9HeDSAibVryRkL5o4R1Ni4M FU30DM37AJ82kRIjm5S2mSE6 J3Bh BAEphqdfcdbouBF9BJFnIHIg mX72Gd5uwNgfVg4wNQIsWGO9 FHEmbDEjR7CcbD7fFgNnIKBv MDAw C1PnaMYkJVtzG015OPrwEgV9 OTRzsmIcW8TwANVidXssZgO8 v8J8Tl9NXt72ZM70OX60wHCw c3R5 kIX5R9ZaLALxitjdmhwuyPX4 RLTqDHZyrB40Xl6xrLsnWo4o QENaXUM6UUXexUTiR7FrzI7r OiAj WYNtAHMnM4FdvAYtVTrsU704 GOkvWsM9ITFixcVgZ8QfXCFz zGkuFoR7s6Y2Kp5NPTapxki6 L3Rk PjwvdHI+UP17UPZkKX20cWLx lRKsl2pxrMo9FkUpQKCtDMS3 mTonBTznh2UtLFJyH14ptHWs c2U6 IGNv (more content not included)... Normal [facility] Consent for Treatmenton Consent for Treatment [id number]: 127 Normal [facility] COVID-19 [place] [place]on 09-11-2021 ADMITTED TO INTENSIVE CARE UNIT FOR CONDITION OF INTEREST:FIND:PT: NO Normal [facility] Comment on above: Performed By: #### 2 [id number] #### [facility] [address] [place] [address] EMPLOYED IN A HEALTHCARE SETTING:FIND:PT: Unknown Normal [facility] Comment on above: Performed By: #### 2 [id number] #### [facility] [address] [place] [address] FIRST TEST FOR CONDITION OF INTEREST:FIND:PT: Unknown Normal [facility] Comment on above: Performed By: #### 2 [id number] #### [facility] [address] [place] [address] HAS SYMPTOMS RELATED TO CONDITION OF INTEREST:FIND:PT: Unknown Normal [facility] Comment on above: Performed By: #### 2 [id number] #### [facility] [address] [place] [id number] HOSPITALIZED FOR CONDITION OF INTEREST:FIND:PT: NO Normal [facility] Comment on above: Performed By: #### 2 [id number] #### [facility] [address] [place] [address] STATUS:FIND:PT: NO Normal [facility] Comment on above: Performed By: #### 2 [id number] #### [facility] [address] [place] [address] RESIDES IN A [facility] CARE SETTING:FIND:PT: Unknown Normal [facility] Comment on above: Performed By: #### 2 [id number] #### [facility] [address] [place] [address] Physician Orderon 09-05-2021 Physician Order [id number] :127 Normal [facility] Physician Orderon 09-04-2021 Physician Order [id number]: 127 Normal [facility] COVID Quick Testingon 2020 Result Negative [facility] [employer] Other Mononucleosis Test, [place] 1 07-02-2020 Heterophile Ab LA Ql (S) Negative [employer] Other XR chest 2V*on 05-02-2021 XR chest 2V* [facility] Main [address] [address] XRay Report Signed Patient: Anne Kemp MR#: [id number] 1 : 1955 Acct:[id number] Age/Sex: 66 / F ADM Date: 05/02/21 Loc: [id number] Room: Type: [facility] Attending Dr: Wilmer Patino PA-C Ordering Provider: Wilmer Patino Date of Service: 05/02/21 XR/XR chest 2V*: Cough Copies to: Wilmer Patino Chest 05/02/2021. CLINICAL DATA: Cough. FINDINGS: 2 views of the chest were obtained and are compared with a prior study 10/12/2014. The cardiac silhouette is normal in size. The pulmonary vasculature is within normal limits. The lungs demonstrate chronic-appearing interstitial changes. No pulmonary consolidation or collapse is identified. No pneumothorax or pleural effusion is seen. The thoracic spine demonstrates degenerative changes. Old rib fractures are noted on the left. XR/XR chest 2V* IMPRESSION: Chronic-appearing interstitial changes. No acute cardiopulmonary disease. Impression dictated by: Arden Granado Jr., M.D.05/02/2021 3:45 PM Dictation Location: [place] [address] Transcribed By: [facility] 05/02/21 1545 Dictated By: Arden Granado Jr, MD 05/02/21 1533 Signed By: 05/02/21 1540 [facility] XR chest 2V* [facility] [employer] Other XR chest 2V* [facility] [employer] Other XR chest 2V* [address] [address] [employer] Other XR chest 2V* [place] [address] [facility] [employer] Other XR chest 2V* XRay Report [employer] Other XR chest 2V* Signed [employer] Other XR chest 2V* Patient: Anne Kemp MR#: [id number] [place] [employer] Other XR chest 2V* 1 [employer] Other XR chest 2V* : 1955 Acct:[id number] [employer] Other XR chest 2V* Age/Sex: 66 / F ADM Date: 05/02/21 [employer] Other XR chest 2V* Loc: [id number] Room: pe: REG CLI [employer] Other XR chest 2V* Attending Dr: Wilmer Patino PA-C [employer] Other XR chest 2V* Ordering Provider: Wilmer Patino [employer] Other XR chest 2V* Date of Service: 05/02/21 [employer] Other XR chest 2V* XR/XR chest 2V*: Cough [employer] Other XR chest 2V* Copies to: Wilmer Patino [employer] Other XR chest 2V* Chest 05/02/2021. [employer] Other XR chest 2V* CLINICAL DATA: Cough. N [employer] Other XR chest 2V* FINDINGS: 2 views of the chest were obtained and are compared with a prior study 10/12/2014. [employer] Other XR chest 2V* The cardiac silhouet te is normal in size. The pulmonary vasculature is within normal limits. The [employer] Other XR chest 2V* lungs demonstrate chronic-appearing interstitial changes. No pulmonary consolidation or collapse is [employer] Other XR chest 2V* identified. No pneumothorax or pleural effusion is seen. The thoracic spine demonstrates [employer] Other XR chest 2V* degenerative changes . Old rib fractures are noted on the left. [employer] Other XR chest 2V* X R/XR chest 2V* [employer] Other XR chest 2V* IMPRESSION: Chronic-appearing interstitial changes. No acute cardiopulmonary disease. [employer] Other XR chest 2V* Impression dictated by: Arden Granado Jr., M.D.05/02/2021 3:45 PM [employer] Other XR chest 2V* Dictation Location: RADIO-PC-06 [employer] Other XR chest 2V* Transcribed By: LUCILLE 05/02/21 1545 [employer] Other XR chest 2V* Dictated By: Arden Granado Jr, MD 05/02/21 1538 [employer] Other XR chest 2V* Signed By: [employer] Other XR chest 2V* 05/02/21 1545 [facility] [employer] Other C-Reactive Proteinon 021 C-Reactive Protein 0.7 mg/dL Normal 0.0-1.0 [facility] Comment on above: Performed By: #### P TH, CBC, CMP, [id number], ESR, CRP, URIC #### [facility] [address] [place] [address] Complete Blood Count Auto Di ffon 11-17-2020 Basophils (Bld) [#/Vol] 0.0 10*3/uL Normal 0.0-0.2 [facility] Comment on above: Performed By: #### P TH, CBC, CMP, [id number], ESR, CRP, URIC #### [facility] [address] [place] [address] [place] Basophils/100 WBC (Bld) 0.6 % Normal . [facility] Comment on above: Performed By: #### P TH, CBC, CMP, [id number], ESR, CRP, URIC #### [facility] [address] [place] [address] [place] Eosinophils (Bld) [#/Vol] 0.2 10*3/uL Normal 0.0-0.45 [facility] Comment on above: Performed By: #### P TH, CBC, CMP, [id number], ESR, CRP, URIC #### [facility] [address] [place] [address] [place] Eosinophils/100 WBC (Bld) 2.8 % Normal . [facility] Comment on above: Performed By: #### P TH, CBC, CMP, [id number], ESR, CRP, URIC #### [address] Erythrocyte distribution width (RBC) [Ratio] 13.5 % Normal 11.9-15.3 [facility] Comment on above: Performed By: #### P TH, CBC, CMP, [id number], ESR, CRP, URIC #### [address] Hematocrit (Bld) [Volume fraction] 36.4 % Normal 34.0-46.4 [facility] Comment on above: Performed By: #### P TH, CBC, CMP, [id number], ESR, CRP, URIC #### [address] Hemoglobin (Bld) [Mass/Vol] 12.5 g/dL Normal 11.8-15.4 [facility] Comment on above: Performed By: #### P TH, CBC, CMP, [id number], ESR, CRP, URIC #### [address] Lymphocytes (Bld) [#/Vol] 1.9 10*3/uL Normal 1.00-4.8 [facility] Comment on above: Performed By: #### P TH, CBC, CMP, [id number], ESR, CRP, URIC #### [address] Lymphocytes/100 WBC (Bld) 33.4 % Normal . [facility] Comment on above: Performed By: #### P TH, CBC, CMP, [id number], ESR, CRP, URIC #### [address] MCH (RBC) [Entitic mass] 31.6 pg Normal 24.7-34.3 [facility] Comment on above: Performed By: #### P TH, CBC, CMP, [id number], ESR, CRP, URIC #### [facility] [address] MCV (RBC) [Entitic vol] 92.0 fL Normal 80-100 [facility] Comment on above: Performed By: #### P TH, CBC, CMP, [id number], ESR, CRP, URIC #### [facility] [address] Mean Corpuscular HGB Conc 34.3 g/dL Normal 32.0-35.0 [facility] Comment on above: Performed By: #### P TH, CBC, CMP, [id number], ESR, CRP, URIC #### [facility] [address] Monocytes (Bld) [#/Vol] 0.5 10*3/uL Normal 0.0-0.8 [facility] Comment on above: Performed By: #### P TH, CBC, CMP, [id number], ESR, CRP, URIC #### [facility] [address] Monocytes/100 WBC (Bld) 9.2 % Normal . [facility] Comment on above: Performed By: #### P TH, CBC, CMP, [id number], ESR, CRP, URIC #### [address] Neutrophils (Bld) [#/Vol] 3.1 10*3/uL Normal 1.8-7.7 [facility] Comment on above: Performed By: #### P TH, CBC, CMP, [id number], ESR, CRP, URIC #### [address] Neutrophils/100 WBC (Bld) 54.0 % Normal . [facility] Comment on above: Performed By: #### P TH, CBC, CMP, [id number], ESR, CRP, URIC #### [address] Nucleated RBC/100 WBC (Bld) [Ratio] 0.1 % Normal 0-0.5 [facility] Comment on above: Performed By: #### P TH, CBC, CMP, [id number], ESR, CRP, URIC #### [address] Platelet mean volume (Bld) [Entitic vol] 7.0 fL Normal 6.3-10.7 [facility] Comment on above: Performed By: #### P TH, CBC, CMP, [id number], ESR, CRP, URIC #### [address] Platelets (Bld) [#/Vol] 336 10*3/uL Normal 150-450 [facility] Comment on above: Performed By: #### P TH, CBC, CMP, [id number], ESR, CRP, URIC #### [address] RBC (Bld) [#/Vol] 3.95 10*6/uL Normal 3.60-5.00 [facility] Comment on above: Performed By: #### P TH, CBC, CMP, [id number], ESR, CRP, URIC #### [address] WBC (Bld) [#/Vol] 5.7 10*3/uL Normal 4.5-11.0 [facility] Comment on above: Performed By: #### P TH, CBC, CMP, [id number], ESR, CRP, URIC #### [address] Comprehensive Metabolic Pane mariela 11-17-2020 Albumin [Mass/Vol] 4.1 g/dL Normal 3.2-5.5 [facility] Comment on above: Performed By: #### P TH, CBC, CMP, [id number], ESR, CRP, URIC #### [address] Albumin/Globulin [Mass ratio] 1.4 {ratio} Normal [facility] Comment on above: Performed By: #### P TH, CBC, CMP, [id number], ESR, CRP, URIC #### [address] [place] [address] [place] ALP [Catalytic activity/Vol] 105 U/L High 32-92 [facility] Comment on above: Performed By: #### P TH, CBC, CMP, [id number], ESR, CRP, URIC #### [address] ALT [Catalytic activity/Vol] 19 U/L Normal 10-60 [facility] Comment on above: Performed By: #### P TH, CBC, CMP, [id number], ESR, CRP, URIC #### [address] AST [Catalytic activity/Vol] 25 U/L Normal 10-42 [facility] Comment on above: Performed By: #### P TH, CBC, CMP, [id number], ESR, CRP, URIC #### [address] Bilirubin [Mass/Vol] 0.5 mg/dL Normal 0.3-1.2 [facility] Comment on above: Performed By: #### P TH, CBC, CMP, [id number], ESR, CRP, URIC #### [facility] [address] [place] [address] Calcium [Mass/Vol] 9.8 mg/dL Normal 8.2-10.2 [facility] Comment on above: Performed By: #### P TH, CBC, CMP, [id number], ESR, CRP, URIC #### [facility] [address] [place] [address] Chloride [Moles/Vol] 101 mmol/L Normal 95-114 [facility] Comment on above: Performed By: #### P TH, CBC, CMP, [id number], ESR, CRP, URIC #### [address] CO2 [Moles/Vol] 27.1 mmol/L Normal 22.0-30.[address] [facility] Comment on above: Performed By: #### P TH, CBC, CMP, [id number], ESR, CRP, URIC #### [address] [place] [address] [place] Creatinine [Mass/Vol] 0.61 mg/dL Normal 0.44-1.03 [facility] Comment on above: Performed By: #### P TH, CBC, CMP, [id number], ESR, CRP, URIC #### [address] Estimated GFR ( [place] > 60 Normal [facility] Comment on above: Result Comment: GFR estimated reference range: According to KDOQI guidelines, <60 ml/min/1.73m2 is sufficient to diagnose a patient with chronic kidney disease. Performed By: #### P TH, CBC, CMP, [id number], ESR, CRP, URIC #### [address] Estimated GFR (Non- Am > 60 Normal [facility] Comment on above: Performed By: #### P TH, CBC, CMP, [id number], ESR, CRP, URIC #### [address] Globulin (S) [Mass/Vol] 3.0 g/dL Normal [facility] Comment on above: Performed By: #### P TH, CBC, CMP, [id number], ESR, CRP, URIC #### [address] Glucose [Mass/Vol] 86 mg/dL Normal 70-100 [facility] Comment on above: Result Comment: [place] Glucose Reference Range is dependent on time and content of last meal. Glucose of more than 200 mg/dL in a nonstressed, ambulatory subject supports the diagnosis of Diabetes Mellitus. ADA recommended reference range Performed By: #### P TH, CBC, CMP, [id number], ESR, CRP, URIC #### [address] Potassium [Moles/Vol] 4.9 mmol/L Normal 3.5-5.1 [facility] Comment on above: Performed By: #### P TH, CBC, CMP, [id number], ESR, CRP, URIC #### [address] [place] [address] [place] Protein [Mass/Vol] 7.1 g/dL Normal 6.1-7.9 [facility] Comment on above: Performed By: #### P TH, CBC, CMP, [id number], ESR, CRP, URIC #### [facility] [address] Sodium [Moles/Vol] 137 mmol/L Normal 136-146 [facility] Comment on above: Performed By: #### P TH, CBC, CMP, [id number], ESR, CRP, URIC #### [facility] [address] Urea nitrogen [Mass/Vol] 11 mg/dL Normal 9-23 [facility] Comment on above: Performed By: #### P TH, CBC, CMP, [id number], ESR, CRP, URIC #### [address] Erythrocyte Sedimentation Ra issa 11-17-2020 ESR (Bld) [Velocity] 17 mm/h Normal 0-29 [facility] Comment on above: Result Comment: PERF ORMED BY: [place] [address] PATHOLOGIST VACUUM CONDITIONER OPERATOR MAAME REVELES M.D. Performed By: #### P TH, CBC, CMP, [id number], ESR, CRP, URIC #### [address] Parathyroid Hormone Intacton 11-17-2020 Parathyroid Hormone Intact 44.4 pg/mL Normal 12-88 [facility] Comment on above: Result Comment: PERF ORMED BY: [place] [address] PATHOLOGIST VACUUM CONDITIONER OPERATOR MAAME REVELES M.D. Performed By: #### P TH, CBC, CMP, [id number], ESR, CRP, URIC #### [address] Uric Acidon 11-17-2020 Urate [Mass/Vol] 3.2 mg/dL Normal 2.6-7.[address] [facility] Comment on above: Performed By: #### P TH, CBC, CMP, [id number], ESR, CRP, URIC #### [facility] [address] [place] [id number] [facility] Vitamin D 25 Hydroxy Totalon 11-17-2020 Vitamin D 25 Hydroxy Total 43.7 ng/mL Normal 30-100 [facility] Comment on above: Result Comment: ANNEL MIN D STATUS 25(OH)VITAMIN D RANGE (ng/mL) Deficient <20 Insufficient 20 to <30 Sufficient 30 to 100 Reference: Agapito MF,Amina NC, Cesario KATHLEEN, et al. Evaluation,treatment, and prevention of vitamin D deficiency; an Endocrine Society clinical practice guideline. JCEM. 2010; 96(7):1911-30. Performed By: #### P TH, CBC, CMP, [id number], ESR, CRP, URIC #### [facility] [address] [place] [phone] [facility] MR head/brain wo conon 10-14 MR head/brain wo con [facility] [place] [address] [place] [address] MRI Report Signed Patient: Anne Kemp MR#: [id number] 1 : 1955 Acct:[id number] Age/Sex: 65 / F ADM Date: 10/14/20 Loc: [facility] Room: Type: [facility] Attending Dr: Emily Velázquez DO Ordering Provider: Emily Velázquez DO Date of Service: 10/14/20 MR/MR head/brain wo con: R14.3 Copies to: Emily Velázquez DO MRI head 10/14/2020. CLINICAL DATA: Memory loss. Dizziness. TECHNIQUE: MRI of the head was performed without contrast. COMPARISON: 12/07/2013. FINDINGS: There is mild frontoparietal parenchymal volume loss. No parenchymal signal abnormality is identified. There is no restricted diffusion to indicate acute ischemia or infarction. No intracranial mass or mass effect is seen. No abnormal extra-axial fluid collection is visualized. A small mucous retention cyst is suspected in the left maxillary sinus. The remaining paranasal sinuses and the left mastoid appear unremarkable. There is fluid signal in the right mastoid. MR/MR head/brain wo con IMPRESSION: 1. Mild frontoparietal parenchymal volume loss. 2. No acute intracranial abnormality. 3. Right mastoiditis. Impression dictated by: Arden Granado Jr., M.D.10/14/2020 3:53 PM Dictation Location: [place] [address] Transcribed By: [facility] 10/14/20 155 Dictated By: Arden Granado Jr, MD 10/14/20 154 Signed By: 10/14/20 155 [facility] ANKLE LEFT 3 VWSon 0 ANKLE LEFT 3 VWS [facility] Department of Radiology [address] [place] [phone] == Patient Name: ANNE KEMP : 1955 Sex: F Age: Race: White Pt. Location: 84 Patient Status: D Ordered Date: 06/23/2019 3:00:00 PM Completed Date: 06/23/2019 03:11 PM Requesting Provider: DANA JI Attending Provider: DANA JI Report Copy To: Signs & Symptoms: M25.562 Pain in left knee I10 History: [place] Comments: , , , Ordering Provider - DANA JI MD , Exam: ANKLE LEFT 3 VWS == KNEE LEFT 3 VWS, ANKLE LEFT 3 VWS 06/23/2019 3:11 PM SIGNS AND SYMPTOMS: M25.562 Pain in left knee I10 TECHNOLOGIST COMMENTS: Patient states complaint of left knee pain and left foot pain HX: partial left knee x 10 years ortho check of left knee and left ankle QUESTION FOR THE RADIOLOGIST: , , , Ordering Provider - DANA JI MD , PROTOCOL: AP,Lateral and Tangential views were obtained. (accession [id number]), AP,Lateral and Oblique views were obtained. (accession [id number]) COMPARISON: None FINDINGS: Soft tissues: No acute findings Bones: Postoperative change Joints: Medial weightbearing arthroplasty in satisfactory alignment Minor heterotopic ossification along the lateral weightbearing joint, likely chondrocalcinosis Ankle joint spaces intact with no significant effusion Big toe metatarsal shows previous osteotomy with mild arthritis at the big toe MTP joint IMPRESSION: 1. No acute bony abnormality 2. Medial left knee weightbearing joint replacement in satisfactory alignment with no loosening but with some adjacent cystic changes both along the distal femur and proximal tibia, including interspinous area 3. Intact left ankle Electronically signed: Zeus Zee. Transcribed by: [email or web address], User Resident: Electronically Signed by: ZEUS ZEE @ 06/24/2019 01:55 PM Normal [facility] Comment on above: Order Comment: , , = ========= , Ordering Provider - DANA JI MD , KNEE LEFT 3 Son 06-23-2019 KNEE LEFT 3 [facility] Department of Radiology [address] [place] [id number] == Patient Name: ANNE KEMP : 1955 Sex: F Age: Race: White Pt. Location: Patient Status: D Ordered Date: 06/23/2019 3:00:00 PM Completed Date: 06/23/2019 03:11 PM Requesting Provider: DANA JI Attending Provider: DANA JI Report Copy To: Signs & Symptoms: M25.562 Pain in left knee I10 History: [place] Comments: , , , Ordering Provider - DANA JI MD , Exam: KNEE LEFT 3 VWS == KNEE LEFT 3 VWS, ANKLE LEFT 3 VWS 06/23/2019 3:11 PM SIGNS AND SYMPTOMS: M25.562 Pain in left knee I10 TECHNOLOGIST COMMENTS: Patient states complaint of left knee pain and left foot pain HX: partial left knee x 10 years ortho check of left knee and left ankle QUESTION FOR THE RADIOLOGIST: , , , Ordering Provider - DANA JI MD , PROTOCOL: AP,Lateral and Tangential views were obtained. (accession [id number]), AP,Lateral and Oblique views were obtained. (accession [id number]) COMPARISON: None FINDINGS: Soft tissues: No acute findings Bones: Postoperative change Joints: Medial weightbearing arthroplasty in satisfactory alignment Minor heterotopic ossification along the lateral weightbearing joint, likely chondrocalcinosis Ankle joint spaces intact with no significant effusion Big toe metatarsal shows previous osteotomy with mild arthritis at the big toe MTP joint IMPRESSION: 1. No acute bony abnormality 2. Medial left knee weightbearing joint replacement in satisfactory alignment with no loosening but with some adjacent cystic changes both along the distal femur and proximal tibia, including interspinous area 3. Intact left ankle Electronically signed: Zeus Zee. Transcribed by: [email or web address], User Resident: Electronically Signed by: ZEUS ZEE @ 06/24/2019 01:55 PM Normal [facility] Comment on above: Order Comment: , , = ========= , Ordering Provider - DANA JI MD , Yu 04-11-2018 [facility] Visit (SP) Office ([place]) Robin KEMP ([id number]) 1955 FDate Time Provider Xwyepcqadh48/2/18 10:00 AM VICTORIA BURR During your visit today, we recorded the following information about you: Temperature Pulse Respiration Blood pressure 98.2 degrees 81/minute 18/minute 154/97 Weight Height 69.9 kg 1.727 Jhonny Burr MD 04/11/2018 12:32 PM Christina Kemp is a 63 year old female who presents in follow-up. Her pulmonaryfunction tests were overall normal except for some suggestion of a mildpostobstructive disease likely from asthma or COPD. She does have a history ofsmoking 15 years ago. I will prescribe her some albuterol.The lesions in her lung are subcentimeter and can be watched. In brief, I seeno evidence of malignancy at this time and would treat her only with albuteroland have her follow-up with her family doctor.Current Outpatient Prescriptions:lamoTRIgin e (LAMICTAL) 200 mg tablet Take 200 mg by mouth twice daily.QUEtiapine (SEROQUEL) 100 mg tablet TAKE 1 TABLET BY MOUTH EVERYDAY AT BEDTIMEvenlafaxine ER (EFFEXOR XR) 150 mg 24 hr capsule Take 150 mg by mouth everymorning.No current facility-administered medications for this visit.ALLERGIESAllergen Reactions- Codeine- PenicillinsREVIEW OF SYSTEMSGENERAL: No weight loss, malaise or fevers., SEE HPIHEENT: Negative for frequent or significant headaches, No changes in hearing orvision, no nose bleeds or other nasal problemsNECK: Negative for lumps, goiter, pain and significant neck swellingRESPIRATORY: Negative for cough, wheezing or shortness of breath.CARDIOVASCULAR: Negative for chest pain, leg swelling or palpitations.GI: Negative for abdominal discomfort, blood in stools or black stools orchange in bowel habitsMUSCULOSKELETAL: Negative for joint pain or swelling, back pain or muscle pain.SKIN: Negative for lesions, rash, and itching.PSYCH: Negative for sleep disturbance, mood disorder and recent psychosocialstressors.HE MATOLOGY/LYMPHOLOGY: Negative for prolonged bleeding, bruising easily orswollen nodes.NEURO: No history of headaches, syncope, paralysis, seizures or tremorsAll other reviewed and negative other than HPI.PHYSICAL EXAM:BP 154/97 Pulse 81 Temp 36.8 ?C (98.2 ?F) (Oral) Resp 18 Ht 172.7cm (5' 7.99 ) Wt 69.9 kg (154 lb) SpO2 99% BMI 23.42 kg/m?General Appearance: alert and oriented, appearing in no acute distressSkin: skin color, texture, turgor normal, no suspicious rashes or lesions.Head: normal.Eyes: Anicteric sclera. Pupils are equally round. Extraocular movements areintact. .Ears: external ears normalNeck: Supple, no adenopathy; thyroid symmetric, normal size, no bruits.Back:no pain with ambulationLungs: good air exchange overallHeart: RRRAbdomen: No obvious evidence of rebound tenderness or guardingExtremities: Extremities normal. No deformities, edema, or skin discoloration.Good capillary refill..Musculoskeletal: Spine range of motion normal. Muscular strength intact.Peripheral Pulses: Normal.Neurologic: Gait normal. No gross cerebellar defectsPsychiatric: the patient has an appropriate affectHemoglobin (g/dL)Date Value11/14/2012 12.8 Hematocrit (%)Date Value11/14/2012 35.9 WBC (k/uL)Date Value11/14/2012 5.32 Platelet Count (k/uL)Date Value11/14/2012 306 ASSESSMENT/ PLAN:1. Dyspnea and respiratory abnormalities - ICD9: 786.09, ICD10: R06.00, R06.89(primary diagnosis)Albuterol trial. Will follow up family practice.2. Pulmonary nodule - ICD9: 793.11, ICD10: R91.1See RAPHAEL Stefevin Provider: YESSY GREENE [[id number]]Allergies As of Date: 04/11/2018 Noted Allergy ReactionCODEINE 04/21/2007PENICILLINS 04/21/2007Date Reviewed: 04/11/2018Reviewed by: Luz Branham - Fully AssessedReason for Visit: Pulmonary nodule [Other] Cmt: 1 week follow upPrimary Visit Diagnosis:Dyspnea and respiratory abnormalities [R06.00, R06.89] Other Visit Diagnosis:Pulmonary nodule [R91.1]Follow-up and Disposition History RecordedPrescriptions as of 04/11/2018 Sig: LAMOTRIGINE 200 MG TABLET Take 200 mg by mouth twice da* QUETIAPINE 100 MG TABLET TAKE 1 TABLET BY MOUTH EVERYD* VENLAFAXINE ER 150 MG CAPSULE* Take 150 mg by mouth every mo*Problem List As Of Date 04/11/2018 Noted Resolved Pulmonary nodule [R91.1] INVALID FOR* Dyspnea and respiratory abnormalities [R06.00, *INVALID FOR*Encounter Status:Closed by VICTORIA BURR MD on 04/11/18 Normal [facility] PROGRESSon 04-11-2018 Protein mass conc HNO ID: [id number]: Victoria Cordon: (none)Author Type: PhysicianType: Progress NotesFiled: 04/11/2018 12:32 PMNote Text:Flor Kemp is a 63 year old female who presents in follow-up. Herpulmonary function tests were overall normal except for some suggestion ofa mild postobstructive disease likely from asthma or COPD. She does havea history of smoking 15 years ago. I will prescribe her some albuterol.The lesions in her lung are subcentimeter and can be watched. In brief, Isee no evidence of malignancy at this time and would treat her only withalbuterol and have her follow-up with her family doctor.Current Outpatient Prescriptions:lamoTRIgin e (LAMICTAL) 200 mg tablet Take 200 mg by mouth twice daily.QUEtiapine (SEROQUEL) 100 mg tablet TAKE 1 TABLET BY MOUTH EVERYDAY ATBEDTIMEvenlafaxine ER (EFFEXOR XR) 150 mg 24 hr capsule Take 150 mg by mouthevery morning.No current facility-administered medications for this visit.ALLERGIESAllergen Reactions- Codeine- PenicillinsREVIEW OF SYSTEMSGENERAL: No weight loss, malaise or fevers., SEE HPIHEENT: Negative for frequent or significant headaches, No changes inhearing or vision, no nose bleeds or other nasal problemsNECK: Negative for lumps, goiter, pain and significant neck swellingRESPIRATORY: Negative for cough, wheezing or shortness of breath.CARDIOVASCULAR: Negative for chest pain, leg swelling or palpitations.GI: Negative for abdominal discomfort, blood in stools or black stools orchange in bowel habitsMUSCULOSKELETAL: Negative for joint pain or swelling, back pain or musclepain.SKIN: Negative for lesions, rash, and itching.PSYCH: Negative for sleep disturbance, mood disorder and recentpsychosocial stressors.HEMATOLOGY/LYM PHOLOGY: Negative for prolonged bleeding, bruising easily orswollen nodes.NEURO: No history of headaches, syncope, paralysis, seizures or tremorsAll other reviewed and negative other than HPI.PHYSICAL EXAM:BP 154/97 Pulse 81 Temp 36.8 ?C (98.2 ?F) (Oral) Resp 18 Ht172.7 cm (5' 7.99 ) Wt 69.9 kg (154 lb) SpO2 99% BMI 23.42 kg/m?General Appearance: alert and oriented, appearing in no acute distressSkin: skin color, texture, turgor normal, no suspicious rashes or lesions.Head: normal.Eyes: Anicteric sclera. Pupils are equally round. Extraocular movementsare intact. .Ears: external ears normalNeck: Supple, no adenopathy; thyroid symmetric, normal size, no bruits.Back:no pain with ambulationLungs: good air exchange overallHeart: RRRAbdomen: No obvious evidence of rebound tenderness or guardingExtremities: Extremities normal. No deformities, edema, or skindiscoloration. Good capillary refill..Musculoskeletal: Spine range of motion normal. Muscular strength intact.Peripheral Pulses: Normal.Neurologic: Gait normal. No gross cerebellar defectsPsychiatric: the patient has an appropriate affectHemoglobin (g/dL)Date Value11/14/2012 12.8 Hematocrit (%)Date Value11/14/2012 35.9 WBC (k/uL)Date Value11/14/2012 5.32 Platelet Count (k/uL)Date Value11/14/2012 306 ASSESSMENT/ PLAN:1. Dyspnea and respiratory abnormalities - ICD9: 786.09, ICD10: R06.00,R06.89 (primary diagnosis)Albuterol trial. Will follow up [facility].2. Pulmonary nodule - ICD9: 793.11, ICD10: R91.1See Brianna Burr MD [facility] CNOVSPon 04-03-2018 CNOVSP Visit (SP) Office ([place]) Robin KEMP ([id number]) 1955 [facility] Time Provider Cctpnohegh42/25/18 8:30 AM VICTORIA BURR During your visit today, we recorded the following information about you: Temperature Pulse Respiration Blood pressure 99.4 degrees 81/minute 16/minute 129/76 Weight Height 69.3 kg 1.727 Jhonny Burr MD 04/03/2018 10:55 AM Christina Kemp is a 63 year old female who presents in consultation today 2017. [place] in [place] where [place] tripped [place] tre[place]oot in [facility] and had blunt trauma to her abdomen from rock.She lacerated her hepatic artery. She was taken to emergent laparotomy andwhile there in the hospital she was noted to have pulmonary nodules. This wasFebruary 2017. She was recommended to have these watched. CT scan of thechest done recently on February 28, 2018 shows scattered subcentimeterpulmonary nodules. These were felt to be stable according to her as she hasseen pulmonary in consultation. According to her, they have recently isolateda large amount of fungus in her house and the house is being fumigated andtreated. She has shortness of breath. No fevers or weight loss.PAST MEDICAL HISTORYDiagnosis Date- Abnormal CT scan, chest 03/[address] Greene- Arthritis- Psychiatric disorder- Thyroid diseasePAST SURGICAL HISTORYProcedure Laterality Date- CHOLECYSTECTOMY HX- JOINT REPLACEMENT HXSocial HistorySubstance Use Topics- Smoking status: Former Smoker Years: 5.00 Types: Cigarettes- Smokeless tobacco: Never Used Comment: quit smoking 2014- Alcohol use NoFAMILY HISTORYProblem Relation Age of Onset- other (MS) Mother- other (lung cancer) Father- other (ovarian cancer) SisterCurrent Outpatient Prescriptions:lamoTRIgin e (LAMICTAL) 200 mg tablet Take 200 mg by mouth twice daily.QUEtiapine (SEROQUEL) 100 mg tablet TAKE 1 TABLET BY MOUTH EVERYDAY AT BEDTIMEvenlafaxine ER (EFFEXOR XR) 150 mg 24 hr capsule Take 150 mg by mouth everymorning.No current facility-administered medications for this visit.ALLERGIESAllergen Reactions- Codeine- PenicillinsREVIEW OF SYSTEM+ dyspneaNegative otherwisePHYSICAL EXAM:BP 129/76 Pulse 81 Temp 37.4 ?C (99.4 ?F) (Oral) Resp 16 Ht 172.7cm (5' 8 ) Wt 69.3 kg (152 lb 11.2 oz) SpO2 98% BMI 23.22 kg/m?General Appearance: alert and oriented, appearing in no acute distressSkin: skin color, texture, turgor normal, no suspicious rashes or lesions.Head: normal.Eyes: Anicteric sclera. Pupils are equally round. Extraocular movements areintact. .Ears: external ears normalNeck: no obvious thyromegalyBack:no pain with ambulationLungs:Heart: RRRAbdomen:Extremities: Extremities normal. No deformities, edema, or skin discoloration.Good capillary refill..Musculoskeletal: Spine range of motion normal. Muscular strength intact.Peripheral Pulses: Normal.Neurologic: Gait normal. No gross cerebellar defectsPsychiatric: the patient has an appropriate affectHemoglobin (g/dL)Date Value11/14/2012 12.8 Hematocrit (%)Date Value11/14/2012 35.9 WBC (k/uL)Date Value11/14/2012 5.32 Platelet Count (k/uL)Date Value11/14/2012 306 ASSESSMENT/ PLAN:1. Pulmonary nodule - ICD9: 793.11, ICD10: R91.1 (primary diagnosis)Patient describes shortness of breath. I will proceed with pulmonary functiontests. This could be related to the fungal infestation of her house. Thereare also opportunistic infections such as valley fever and aspergillosis aswell as histoplasmosis which could be playing a role. [place] P[place]s and I'll see her in an one week.- OXIMETRY AT REST2. Dyspnea and respiratory abnormalities - ICD9: 786.09, ICD10: R06.00, R06.89See above- OXIMETRY AT RESTRAPHAEL Guntereferrrach Provider: YESSY GREENE [[id number]]Allergies As of Date: 04/03/2018 Noted Allergy ReactionCODEINE 04/21/2007PENICILLINS 04/21/2007Date Reviewed: 04/03/2018Reviewed by: Daisha Sanchez - Fully AssessedReason for Visit: abnormal ct scan of the chest [Other] Cmt: new patient consultationPrimary Visit Diagnosis:Pulmonary nodule [R91.1] Other Visit Diagnosis:Dyspnea and respiratory abnormalities [R06.00, R06.89]Order(s):OXIMETRY AT REST [[id number]] Order #: [id number] FUTUREDisposition: Return in about 1 week (around 04/10/2018).Follow-up and Disposition History RecordedPrescriptions as of 04/03/2018 Sig: LAMOTRIGINE 200 MG TABLET Take 200 mg by mouth twice da* QUETIAPINE 100 MG TABLET TAKE 1 TABLET BY MOUTH EVERYD* VENLAFAXINE ER 150 MG CAPSULE* Take 150 mg by mouth every mo*Problem List As Of Date 04/03/2018 Noted Resolved Pulmonary nodule [R91.1] INVALID FOR* Dyspnea and respiratory abnormalities [R06.00, *INVALID FOR*Encounter Status:Closed by VICTORIA BURR MD on 04/03/18 Normal [facility] PROGRESSon 04-03-2018 Protein mass conc HNO ID: [id number]: Victoria Cordon: (none)Author Type: PhysicianType: Progress NotesFiled: 04/03/2018 10:55 AMNote Text:Flor Kemp is a 63 year old female who presents in consultation todayApril 03, 2018. Her [place] shetri[place] over a tree root in [facility] and had blunt trauma toher abdomen from rock. She lacerated her hepatic artery. She was takento emergent laparotomy and while there in the hospital she was noted tohave pulmonary nodules. This was July 2017. She was recommended tohave these watched. CT scan of the chest done recently on February shows scattered subcentimeter pulmonary nodules. These were felt oscar stable according to her as she has seen pulmonary in consultation.According to her, they have recently isolated a large amount of fungus inher house and the house is being fumigated and treated. She hasshortness of breath. No fevers or weight loss.PAST MEDICAL HISTORYDiagnosis Date- Abnormal CT scan, chest 03/[address] Greene- Arthritis- Psychiatric disorder- Thyroid diseasePAST SURGICAL HISTORYProcedure Laterality Date- CHOLECYSTECTOMY HX- JOINT REPLACEMENT HXSocial HistorySubstance Use Topics- Smoking status: Former Smoker Years: 5.00 Types: Cigarettes- Smokeless tobacco: Never Used Comment: quit smoking 2014- Alcohol use NoFAMILY HISTORYProblem Relation Age of Onset- other (MS) Mother- other (lung cancer) Father- other (ovarian cancer) SisterCurrent Outpatient Prescriptions:lamoTRIgin e (LAMICTAL) 200 mg tablet Take 200 mg by mouth twice daily.QUEtiapine (SEROQUEL) 100 mg tablet TAKE 1 TABLET BY MOUTH EVERYDAY ATBEDTIMEvenlafaxine ER (EFFEXOR XR) 150 mg 24 hr capsule Take 150 mg by mouthevery morning.No current facility-administered medications for this visit.ALLERGIESAllergen Reactions- Codeine- PenicillinsREVIEW OF SYSTEM+ dyspneaNegative otherwisePHYSICAL EXAM:BP 129/76 Pulse 81 Temp 37.4 ?C (99.4 ?F) (Oral) Resp 16 Ht172.7 cm (5' 8 ) Wt 69.3 kg (152 lb 11.2 oz) SpO2 98% BMI 23.22kg/m?General Appearance: alert and oriented, appearing in no acute distressSkin: skin color, texture, turgor normal, no suspicious rashes or lesions.Head: normal.Eyes: Anicteric sclera. Pupils are equally round. Extraocular movementsare intact. .Ears: external ears normalNeck: no obvious thyromegalyBack:no pain with ambulationLungs:Heart: RRRAbdomen:Extremities: Extremities normal. No deformities, edema, or skindiscoloration. Good capillary refill..Musculoskeletal: Spine range of motion normal. Muscular strength intact.Peripheral Pulses: Normal.Neurologic: Gait normal. No gross cerebellar defectsPsychiatric: the patient has an appropriate affectHemoglobin (g/dL)Date Value11/14/2012 12.8 Hematocrit (%)Date Value11/14/2012 35.9 WBC (k/uL)Date Value11/14/2012 5.32 Platelet Count (k/uL)Date Value11/14/2012 306 ASSESSMENT/ PLAN:1. Pulmonary nodule - ICD9: 793.11, ICD10: R91.1 (primary diagnosis)Patient describes shortness of breath. I will proceed with pulmonaryfunction tests. This could be related to the fungal infestation of herhouse. There are also opportunistic infections such as valley fever andaspergillosis as well as histoplasmosis which could be playing a role.She will be going to [place] in a few weeks. We will check PFTs and I'llsee her in an one week.- OXIMETRY AT REST2. Dyspnea and respiratory abnormalities - ICD9: 786.09, ICD10: R06.00,R06.89See above- OXIMETRY AT RESTVictoria Burr MD Normal [facility] Vital Signs Date Time Vital Sign Value Performing Clinician Facility 09-21-2021 09:59-0400 Diastolic blood pressure 87 mm[Hg] [facility] 09-21-2021 09:59-0400 Heart rate 94 /min [facility] 09-21-2021 09:59-0400 Systolic blood pressure 146 mm[Hg] [facility] 09-21-2021 09:00-0400 Promise to Return [facility] 09-21-2021 08:45-0400 Hourly Rounding [facility] 09-21-2021 08:43-0400 Diastolic blood pressure 95 mm[Hg] [facility] 09-21-2021 08:43-0400 Heart rate 102 /min [facility] 09-21-2021 08:43-0400 Systolic blood pressure 154 mm[Hg] [facility] 09-21-2021 08:00-0400 Body temperature 98.24 [degF] [facility] 09-21-2021 08:00-0400 SaO2% (BldA) [Mass fraction] 98 % [facility] 09-21-2021 02:20-0400 Blood Pressure Location [facility] 09-21-2021 02:20-0400 BP/Pulse Patient Position [facility] 09-21-2021 02:20-0400 Diastolic blood pressure 97 mm[Hg] [facility] 09-21-2021 02:20-0400 Mean blood pressure 118 mm[Hg] [facility] 09-21-2021 02:20-0400 Systolic blood pressure 160 mm[Hg] [facility] 09-21-2021 01:02-0400 Blood Pressure Location [facility] 09-21-2021 01:02-0400 BP/Pulse Patient Position [facility] 09-21-2021 01:02-0400 Mean blood pressure 126 mm[Hg] [facility] 09-21-2021 00:00-0400 Blood Pressure Location [facility] 09-21-2021 00:00-0400 Body temperature 98.06 [degF] [facility] 09-21-2021 00:00-0400 BP/Pulse Patient Position [facility] 09-21-2021 00:00-0400 Heart rate 93 /min [facility] 09-21-2021 00:00-0400 Mean blood pressure 127 mm[Hg] [facility] 09-21-2021 00:00-0400 SaO2% (BldA) [Mass fraction] 97 % [facility] 09-20-2021 20:24-0400 Heart rate 98 /min [facility] 09-20-2021 19:38-0400 Body temperature 98.24 [degF] [facility] 09-20-2021 19:38-0400 Heart rate 98 /min [facility] 09-20-2021 19:38-0400 Mean blood pressure 122 mm[Hg] [facility] 09-20-2021 19:38-0400 SaO2% (BldA) [Mass fraction] 95 % [facility] 09-20-2021 19:00-0400 Respiratory rate 16 /min [facility] 09-20-2021 17:30-0400 Heart rate 99 /min [facility] 09-20-2021 17:30-0400 Mean blood pressure 88 mm[Hg] [facility] 09-20-2021 17:30-0400 Respiratory rate 18 /min [facility] 09-20-2021 08:22-0400 Mean blood pressure 98 mm[Hg] [facility] 09-19-2021 13:45-0400 Body temperature 97.16 [degF] [facility] 09-19-2021 13:45-0400 Respiratory rate 17 /min [facility] 09-19-2021 13:35-0400 Respiratory rate 18 /min [facility] 09-19-2021 13:30-0400 Respiratory rate 12 /min [facility] 09-19-2021 13:19-0400 Body temperature 97.16 [degF] [facility] 09-15-2021 16:51-0400 Body temperature 97.7 [degF] [facility] 09-15-2021 16:51-0400 Diastolic blood pressure 88 mm[Hg] [facility] 09-15-2021 16:51-0400 Heart rate 66 /min [facility] 09-15-2021 16:51-0400 Mean blood pressure 108 mm[Hg] [facility] 09-15-2021 16:51-0400 Respiratory rate 16 /min [facility] 09-15-2021 16:51-0400 SaO2% (BldA) [Mass fraction] 98 % [facility] 09-15-2021 16:51-0400 Systolic blood pressure 146 mm[Hg] [facility] 09-15-2021 16:51-0400 Blood Pressure Location [facility] 09-15-2021 16:50-0400 Blood Pressure Location [facility] 09-15-2021 16:50-0400 Diastolic blood pressure 82 mm[Hg] [facility] 09-15-2021 16:50-0400 Heart rate 69 /min [facility] 09-15-2021 16:50-0400 Mean blood pressure 104 mm[Hg] [facility] 09-15-2021 16:50-0400 Respiratory rate 16 /min [facility] 09-15-2021 16:50-0400 Systolic blood pressure 147 mm[Hg] [facility] 05-02-2021 15:20-0500 Body height 172.72 cm [facility] Other [employer] Other 05-02-2021 15:20-0500 Body mass index (BMI) [Ratio] 24.33 kg/m2 Wil[facility] Other [employer] Other 05-02-2021 15:20-0500 Body temperature 98.6 [degF] [facility]ino Other [employer] Other 05-02-2021 15:20-0500 Body weight 72.58 kg Wil[facility] Other [employer] Other 05-02-2021 15:20-0500 Respiratory rate 16 /min Wilmer Patino Other [employer] Other 05-02-2021 15:20-0500 SaO2% (BldA) [Mass fraction] 95 % Wilmer Patino Other [employer] Other Encounters Encounter Date Encounter Type Care Provider Facility Start: 11-07-2022 ambulatory [facility] Start: 10-25-2022 End: 10-26-2022 ambulatory [facility] Facility:[facility] Start: 07-19-2022 End: 07-20-2022 ambulatory [facility] Facility:[facility] Start: 07-11-2022 End: 07-12-2022 ambulatory [facility] Facility: Start: 09-19-2021 End: 09-21-2021 ambulatory DO [facility] Facility[place] [place] Start: 09-19-2021 End: 09-21-2021 Observation [facility] Start: 09-15-2021 End: 09-16-2021 ambulatory DO [facility] Facility:[facility] [place] Start: 09-15-2021 End: 09-15-2021 Patient encounter procedure Cas Severino [facility] Start: 09-12-2021 End: 12-12-2021 ambulatory DO Cas Joe Pocharley Facility[place] [place] [facility] [place] Start: 09-04-2021 End: 12-11-2021 Preprocedural examination done Cas Severino [facility] Start: 09-04-2021 End: 12-11-2021 Recurring Cas Joe Pocos [facility] Start: 05-02-2021 End: 05-02-2021 ambulatory Wilmer Patino Other [employer] Other Start: 05-02-2021 Office outpatient vi sit 15 minutes Wilmer Patino [facility] Start: 04-11-2018 End: 04-14-2018 [facility] Start: 04-03-2018 End: 04-04-2018 [facility] Procedures Date Procedure Procedure Detail Performing Clinician Start: 09-19-2021 Total knee replacement Cas Pocos Arthroplasty of knee Cas P ocos Cholecystectomy Cas Pocos Immunizations Immunization Date Immunization Notes Care Provider Gina parikh 03-11-2014 tetanus toxoid, reduced diphtheria toxoid, and acellular pertussis vaccine, adsorbed Wilmer Patino Other [employer] Other Payers Date Payer Category Payer Self-pay 1959 Medicare [id number] 2.1 [id number] 1959 Unknown [id number] 2. [id number] 1955 Unknown [id number] 2.16.8 [id number] 1955 Unknown [id number] 2.16.8 [id number] 1955 Unknown [id number] 2.16.8 [id number] 1955 Unknown [id number] 2.16.84 [id number] 1955 Unknown [id number] 2.16.84 [id number] 1955 Unknown [id number] 2.16.84 [id number] 1955 Unknown [id number] 2.16.84 [id number] 1955 Unknown [id number] 2.16.84 [id number] Social History Date Type Detail Facility Tobacco smoking status Unknown if ever sm oked [employer] Other Sex Assigned At Female [employer] Other Tobacco smoking status No Smoking Status Entered [facility] Medical Equipment Procedure Code Equipment Code Equipment Origin al Text Equipment Identifier Dates FDA Start: 09-19-2021 FDA Start: 09-19-2021 FDA Start: 09-19-2021 FDA Start: 09-19-2021 FDA Start: 09-19-2021 FDA Start: 09-19-2021 FDA Start: 09-19-2021 KNEE TOTAL ARTHROPLASTY REVISION Pocos DOCas 09/19/21 Unknown Knee L FDA Start: 09-19-2021 KNEE TOTAL ARTHROPLASTY REVISION Pocos DO, Cas Joe 09/19/21 Unknown Knee L FDA Start: 09-19-2021 KNEE TOTAL ARTHROPLASTY REVISION Pocos DO, Cas Joe 09/19/21 Unknown Knee L FDA Start: 09-19-2021 KNEE TOTAL ARTHROPLASTY REVISION Pocos DO, Cas Joe 09/19/21 Unknown Knee L FDA Start: 09-19-2021 KNEE TOTAL ARTHROPLASTY REVISION Pocos DO, Cas Joe 09/19/21 Unknown Knee L FDA Start: 09-19-2021 KNEE TOTAL ARTHROPLASTY REVISION Pocos DO, Cas Joe 09/19/21 Unknown Knee L FDA Start: 09-19-2021 KNEE TOTAL ARTHROPLASTY REVISION Pocos DO, Cas Joe 09/19/21 Unknown Knee L FDA Start: 09-19-2021 Clinical Notes 05-02-2021 to 09-26-2021 Note Date & Type Note Facility 09-26-2021 Note DATE OF ADMISSION: 0 09/19/2021 DATE OF DISCHARGE: 09/21/2021 ADMITTING DIAGNOSIS: 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 CONSULTS: 1. Hospitalist for medical comanagement. 2. Physical therapy, occupational therapy for total knee rehabilitation. 3. Discharge planning for after hospital needs. HOSPITAL COURSE/HISTORY: Anne is a 66 year old white female admitted after undergoing successful total knee arthroplasty conversion. She did well over her operative day, however, did have some significant pain and did develop a high level of hypertension. With that we did make recommendation for hospitalist consult. The patient was kept an additional day for monitoring and pain control. Day number two doing well, progressing. She did very well with the therapy and was deemed stable for orthopedic discharge. DISCHARGE INSTRUCTIONS:Please see the chart. Franki Lee Dictated: 09/26/2021 [id number] Transcribed: 09/26/2021 [facility] Comment on above: Result Comment: Elec tronically Signed By: Cas Severino DO\.br\Date and Time Signed: 09/26/21 15:34 EDT 09-22-2021 Note DAILY PROGRESS NOTE 09/21/2021 HISTORY: Anne is seen here today postoperative day number two of her left knee revision arthroplasty. She is doing well. She does state that she is hoping to go home. She reports no fever or chills. Her orthopedic examination reveals temperature maximum 37.3, vital signs do show some hypertension through the night still, highest of which 174/104, pulse 98, respirations 18. She is saturating 97% on room air. Her examination of the left knee reveal some dried blood on the dressing. This is a curvilinear wound and as such this would be likely toward the edge of that wound. Dressing is otherwise benign. Her neurocirculatory status is intact bilaterally. Calf and thigh are supple bilaterally. Her labs - hemoglobin and hematocrit of 11.9 and 34.6, platelet count of 337, white count is 13.3, sodium 131. Remainder of her labs essentially unremarkable. IMPRESSION: 1. Status post left knee revision arthroplasty with conversion of medial unicompartmental knee arthroplasty to total knee arthroplasty, postoperative day number one, stable. 2. Hyponatremia, leukocytosis likely stress related. 3. Hypertension. TREATMENT PLAN: 1. The findings were discussed. Hospitalist and appreciated. They were asked to see the patient due to some hypertension, question whether this is hard to manage hypertension versus new onset finding. Appreciate their expertise. 2. The patient was kept an additional day due to pain management as well as the hypertension as described. 3. Monitor this ongoing. 4. Discharge planning underway. 5. Continue analgesia. 6. All of her questions are otherwise answered. 7. Continue the physical therapy. Franki Lee Dictated: 09/21/2021 [id number] Transcribed: 09/21/2021 [facility] Comment on above: Result Comment: Elec tronically Signed By: Cas Severino DO\.br\Date and Time Signed: 09/22/21 08:13 EDT 09-21-2021 Evaluation + Plan note Extrac elroy from: Title:APSO Note Author:Ashlyn PETERSON ate:09/21/21 1. Status post total left kn ee replacement (Z96.652: Presence of left artificial knee joint) S/P Left knee hardware removal with conversion to total knee arthroplasty, complete synovectomy on 09/[address] Severino -PT/OT -> set up with ortho 360 -Pain mgt. -Plaquenil for OA -Education: Oral pain medication regimen, incentive spirometry 10 times while awake and bowel regimen to avoid constipation -Thank you for the opportunity to assist in the management of your patient 2. Iron deficiency anemia (D50.9: Iron deficiency anemia, unspecified) Baseline hgb. level - unknown - no prior labs for comparison -Ferrous sulfate -No acute bleeding noted, hemodynamically stable -Trend labs 3. Hyponatremia (E87.1: Hypo-osmolality and hyponatremia) Asymptomatic -DC IVF - 3L to date - taking PO -Trend BMP 4. HTN (hypertension) (I10: Essential (primary) hypertension) Elevated likely secondary to holding of metoprolol pre-operatively and in the setting of pain -Metoprolol, -IV hydralazine prn 5. Bipolar disorder (F31.9: Bipolar disorder, unspecified) Stable -Lamotrigine, venlafaxine, -Hold cannabidiol, 6. Manic disorder (F30.9: Manic episode, unspecified) Stable -See above 7. Chronic GERD (K21.9: Gastro-esophageal reflux disease without esophagitis) -PPI 8. DVT prophylaxis (Z29.9: Encounter for prophylactic measures, unspecified) -Defer to Ortho > aspirin BID -Plan discussed w/ patient, nursing staff and CRM. This report was transcribed using voice recognition software. Every effort was made to ensure accuracy, however, inadvertently computerized boiler plant worker mistakes may be present. Extracted from: Title:Consult Note Author:Tiffani DOMINGUEZ Date:09/20/21 PLAN: 1. Status post total left knee replacement (Z96.652: Presence of left artificial knee joint) Status post Left total knee POD # 1 secondary to left failed total knee due to osteoarthritis status post U KA managed by ortho PT/OT-eval, treat and provide recommendations Pain management -per ortho services Plaquenil for OA Education: Oral pain medication regimen, incentive spirometry 10 times while awake and bowel regimen to avoid constipation Thank you for the opportunity to assist in the management of your patient 2. HTN (hypertension) (I10: Essential (primary) hypertension) -SBP currently elevated. -Metoprolol -Hydralazine for SBP >160 3. Bipolar disorder (F31.9: Bipolar disorder, unspecified) Lamictal, Seroquel, Effexor 4. Manic disorder (F30.9: Manic episode, unspecified) Lamictal, Seroquel, Effexor DVT Prophylaxis: per ortho Orders: cholecalciferol, 25 mcg = 1 tab(s), Tab, Oral, Daily, NOW, Start date 09/20/21 14:29:00 EDT, 09/20/21 14:29:00 EDT hydrALAZINE, 10 mg = 0.5 mL, Injection, IV Push, Once, Stop date 09/20/21 14:27:00 EDT, NOW, Start date 09/20/21 14:27:00 EDT, 09/20/21 14:27:00 EDT hydroxychloroquine, 200 mg = 1 tab(s), Tab, Oral, Daily, Routine, Start date 09/21/21 9:00:00 EDT, 09/20/21 14:29:00 EDT hydrOXYzine, 10 mg = 5 mL, Syrup, Oral, Once PRN Anxiety, Routine, Start date 09/20/21 16:53:00 EDT, 09/20/21 16:53:00 EDT lamotrigine, 200 mg = 1 tab(s), Tab, Oral, BID, Routine, Start date 09/20/21 21:00:00 EDT metoprolol, 25 mg = 1 tab(s), Tab, Oral, BID, Routine, Start date 09/20/21 21:00:00 EDT venlafaxine, 150 mg = 1 cap(s), Cap-ER, Oral, Daily, NOW, Start date 09/20/21 14:30:00 EDT Blood Pressure Extracted from: Title:ANES POSTOP MAC/GEN NOTE Author:Luis M Cooper. Date:09/19/21 Plan Transfer/ Discharge: Patient can be discharged from PACU when criteria met. Condition good. Extracted from: Title:Anesthesia Pre-Op Note Author:Luis M Delgado CRNA. Date:09/19/21 Plan [place] [employer]esthesi[employer] (ASA) physical status classification: Class II. Anesthetic Preoperative Plan Anesthesia: Regional (Spinal, adductor canal left). Anesthetic plan, risks, benefits, and alternatives discussed with the patient and/or family. Patient verbalized understanding. [facility]04-14-2022 NoteDAILY PROGRESS NOTE: 09/20/2021 HISTORY: Anne is seen here today postoperative day #1 of her left knee revision arthroplasty. She is doing fairly well, not having a great deal of pain. She denies any numbness, tingling. She did okay with therapy. PHYSICAL EXAMINATION: Her orthopedic examination reveals temperature max 37.1, vital signs otherwise unremarkable. Examination of her left knee reveals dressing to be clean, dry and intact. Calf and thigh are otherwise supple. Her neurocirculatory status is intact. LABORATORY DATA: Chemistry is the only thing back, essentially unremarkable. IMPRESSION: Status post left knee revision arthroplasty, postoperative day #1, stable. TREATMENT PLAN: 1. The findings were discussed. We will continue with the physical therapy. Aspirin in addition to mechanical deep venous thrombosis prophylaxis. 2. Discharge planning underway. 3. Continue analgesia. 4. All of her questions are answered. 5. She is concerned about home discharge from the hospital. She states she does not have anybody athome and is really questioning usp. We did explain the indication for usp and the downside risk of usp in the setting of revision knee arthroplasty. She does inquire about aides to help her otherwise. We will have discharge planning discuss further. Franki Lee Dictated: 09/20/2021 [id number] Transcribed: 09/20/2021[facility]Result Comment: Electronically Signed By: Cas Severino DO\.br\Date and Time Signed: 09/21/21 06:46 [id number] NoteReason for Consultation Medical management. History of Present Illness 66-year-old female with past medical history significant for hypertension, manic bipolar disorder; patient is status post left total knee arthroplasty performed by Dr. Cas Severino on 09/19/2021. Surgery secondary to left failed total knee due to osteoarthritis status post U KA. Hospitalist group was consulted for medical management of above diagnosis and current hypertension.Patient is status post op day #1. She is doing fairly well not having a great deal of pain postoperatively. Review of Systems Additional ROS info: Except as noted in the above Review of Systems and in the History of Present Illness all other systems have been reviewed and are negative or noncontributory. Physical Exam Vitals & Measurements T: 36.8 ?C(Oral) TMIN: 36.7 ?C(Oral) TMAX: 37.1 ?C(Oral) HR: 97(Monitored) RR: 18 BP: 180/95 SpO2: 98% General: Alert and oriented, No acute distress. Eye: Pupils are equal, round and reactive to light. HENT: Normocephalic, Normal hearing, No pharyngeal erythema. Neck: Supple, Non-tender, No lymphadenopathy. Respiratory: Lungs are clear to auscultation, Respirations are non-labored, Breath sounds are equal, Symmetrical chest wall expansion. Cardiovascular: Normal rate, Regular rhythm, Good pulses equal in all extremities, Normal peripheral perfusion, No edema. Gastrointestinal: Soft, Non-tender, Non-distended, Normal bowel sounds. Musculoskeletal Normal range of motion. Normal strength. Integumentary: Warm, Dry, Intact. Neurologic: Alert, Oriented, No focal deficits. Psychiatric: Cooperative, Appropriate mood & affect, Normal judgment. Assessment/Plan PLAN: 1. Status post total left knee replacement (Z96.652: Presence of left artificial knee joint) Status post Left total knee POD # 1 secondary to left failed total knee due to osteoarthritis status post U KA managed by ortho PT/OT-eval, treat and provide recommendations Pain management -per ortho services Plaquenil for OA Education: Oral pain medication regimen, incentive spirometry 10 times while awake and bowel regimen to avoid constipation Thank you for the opportunity to assist in the management of your patient 2. HTN (hypertension) (I10: Essential (primary) hypertension) -SBP currently elevated. -Metoprolol -Hydralazine for SBP >160 3. Bipolar disorder (F31.9: Bipolar disorder, unspecified) Lamictal, Seroquel, Effexor 4. Manic disorder (F30.9: Manic episode, unspecified) Lamictal, Seroquel, Effexor DVT Prophylaxis: per ortho Orders: cholecalciferol, 25 mcg = 1 tab(s), Tab, Oral, Daily, NOW, Start date 09/20/21 14:29:00 EDT, 09/20/21 14:29:00 EDT hydrALAZINE, 10 mg = 0.5 mL, Injection, IV Push, Once, Stop date 09/20/21 14:27:00 EDT, NOW, Start date 09/20/21 14:27:00 EDT, 09/20/21 14:27:00 EDT hydroxychloroquine, 200 mg = 1 tab(s), Tab, Oral, Daily, Routine, Start date 09/21/21 9:00:00 EDT, 09/20/21 14:29:00 EDT hydrOXYzine, 10 mg = 5 mL, Syrup, Oral, Once PRN Anxiety, Routine, Start date 09/20/21 16:53:00 EDT, 09/20/21 16:53:00 EDT lamotrigine, 200 mg = 1 tab(s), Tab, Oral, BID, Routine, Start date 09/20/21 21:00:00 EDT metoprolol, 25 mg = 1 tab(s), Tab, Oral, BID, Routine, Start date 09/20/21 21:00:00 EDT venlafaxine, 150 mg = 1 cap(s), Cap-ER, Oral, Daily, NOW, Start date 09/20/21 14:30:00 EDT Blood Pressure Problem List/Past Medical History Ongoing No qualifying data Historical No qualifying data Procedure/Surgical History Total knee arthroplasty (09/19/2021), Total knee arthroplasty (09/19/2021), Arthroplasty of the knee, Cholecystectomy. Medications Inpatient aspirin 81 mg Oral EC Tab, 81 mg= 1 tab(s), Oral, BIDWM Colace 100 mg Cap, 100 mg= 1 cap(s), Oral, BID Dulcolax 5 mg Tab-EC, 10 mg= 2 tab(s), Oral, Daily, PRN ferrous sulfate 325 mg Tab, 325 mg= 1 tab(s), Oral, BIDWM hydroxychloroquine 200 mg Tab, 200 mg= 1 tab(s), Oral, Daily Lactated Ringers IV Armida 1000 mL 1,000 mL, 1000 mL, IV Lactated Ringers IV Armida 1000 mL 1,000 mL, 1000 mL, IV lamotrigine 200 mg Tab, 200 mg= 1 tab(s), Oral, BID Lopressor 25 mg oral tablet, 25 mg= 1 tab(s), Oral, BID Milk of Magnesia 8% Susp-Oral, 30 mL, Oral, BID, PRN morphine 2 mg/mL Inj, 2 mg= 1 mL, IV, q4hr, PRN oxyCODONE 5 mg Tab, 5 mg= 1 tab(s), Oral, q4hr, PRN oxyCODONE 5 mg Tab, 10 mg= 2 tab(s), Oral, q4hr, PRN Pantoprazole [address] Tab, 40 mg= 1 tab(s), Oral, Daily venlafaxine 150 mg Cap-ER, 150 mg= 1 cap(s), Oral, Daily Vistaril hydrochloride 10 mg/5 mL Syrup, 10 mg= 5 mL, Oral, Once, PRN Vitamin C 500 mg Tab, 500 mg= 1 tab(s), Oral, BIDWM Vitamin D 1000 intl units (25 mcg) Tab, 25 mcg= 1 tab(s), Oral, Daily Zofran 4 mg/2 mL Injection, 4 mg= 2 mL, IV Push, q6hr, PRN Home ashwaganda/dev root, Oral, Daily Aspirin 81 mg Tab-EC, 81 mg= 1 tab(s), Oral, BIDPC, Pre-arrival medication cannabidiol, Oral, Daily Colace 100 mg Cap, 100 mg= 1 cap(s), Oral, BID, PRN, Pre-arriva (more content not included)...[facility]Result Comment: Electronically Signed By: Jewels DOMINGUEZ\.br\Date and Time Signed: 09/20/21 16:56 EDT\.br\Electronically Co-Signed By: Brijesh BARRETT MD\.br\Date and Time Co-Signed: 09/20/2216:58 [id number] Hospital Discharge instructions Patient Education 09/19/2021 19:46:32 Fall Prevention in the Home, Adult, Kytn-yp-Bmlp Fall Prevention in the Home, Adult Falls can cause injuries. They can happen to people of all ages. There are many things you can do to make your home safe and to help prevent falls. Ask for help when making these changes, if needed. What actions can I take to prevent falls? General Instructions Use good lighting in all rooms. Replace any light bulbs that burn out. Turn on the lights when you go into a dark area. Use night-lights. Keep items that you use often in otxk-tk-csodz places. Lower the shelves around your home if necessary. Set up your furniture so you have a clear path. Avoid moving your furniture around. Do not have throw rugs and other things on the floor that can make you trip. Avoid walking on wet floors. If any of your floors are uneven, fix them. Add color or contrast paint or tape to clearly shaheen and help you see: ?Any grab bars or handrails. ?First and last steps of stairways. ?Where the edge of each step is. If you use a stepladder: ?Make sure that it is fully opened. Do not climb a closed stepladder. ?Make sure that both sides of the stepladder are locked into place. ?Ask someone to hold the stepladder for you while you use it. If there are any pets around you, be aware of where they are. What can I do in the bathroom? Keep the floor dry. Clean up any water that spills onto the floor as soon as it happens. Remove soap buildup in the tub or shower regularly. Use non-skid mats or decals on the floor of the tub or shower. Attach bath mats securely with double-sided, non-slip rug tape. If you need to sit down in the shower, use a plastic, non-slip stool. Install grab bars by the toilet and in the tub and shower. Do not use towel bars as grab bars. What can I do in the bedroom? Make sure that you have a light by your bed that is easy to reach. Do not use any sheets or blankets that are too big for your bed. They should not hang down onto thefloor. Have a firm chair that has side arms. You can use this for support while you get dressed. What can I do in the kitchen? Clean up any spills right away. If you need to reach something above you, use a strong step stool that has a grab bar. Keep electrical cords out of the way. Do not use floor [place] or wax that makes floors slippery. If you must use wax, use non-skid floor wax. What can I do with my stairs? Do not leave any items on the stairs. Make sure that you have a light switch at the top of the stairs and the bottom of the stairs. If you do not have them, ask someone to add them for you. Make sure that there are handrails on both sides of the stairs, and use them. Fix handrails that are broken or loose. Make sure that handrails are as long as the stairways. Install non-slip stair treads on all stairs in your home. Avoid having throw rugs at the top or bottom of the stairs. If you do have throw rugs, attach them to the floor with carpet tape. Choose a carpet that does not hide the edge of the steps on the stairway. Check any carpeting to make sure that it is firmly attached to the stairs. Fix any carpet that is loose or worn. What can I do on the outside of my home? Use bright outdoor lighting. Regularly fix the edges of walkways and driveways and fix any cracks. Remove anything that might make you trip as you walk through a door, such as a raised step or threshold. Trim any bushes or trees on the path to your home. Regularly check to see if handrails are loose or broken. Make sure that both sides of any steps have handrails. Install guardrails along the edges of any raised decks and porches. Clear walking paths of anything that might make someone trip, such as tools or rocks. Have any leaves, snow, or ice cleared regularly. Use sand or salt on walking paths during winter. Clean up any spills in your garage right away. This includes grease or oil spills. What other actions can I take? Wear shoes that: ?Have a low heel. Do not wear high heels. ?Have rubber bottoms. ?Are comfortable and fit you well. ?Are closed at the toe. Do not wear open-toe sandals. Use tools that help you move around (mobility aids) if they are needed. These include: ?Canes. ?Walkers. ?Scooters. ?Crutches. Review your medicines with your doctor. Some medicines can make you feel dizzy. This can increase your chance of falling. Ask your doctor what other things you can do to help prevent falls. Where to find more information Centers for Disease Control and PreventionRAKAN: https://cdc.gov National [employer]: https://dp3eswc.bryson.nih.gov Contact a doctor if: You are afraid of falling at home. You feel weak, drowsy, or dizzy at home. You fall at home. Summary There are many simple things that you can do to make your home safe and to help prevent falls. Ways to make your home safe include removing tripping hazards and installing grab bars in the bathroom. Ask for help when making these changes in your home. This information is not intended to replace advice given to you by your health care provider. Make sure you discuss any questions you have with your health care provider. Document Released: 03/23/2010 Document Revised: 09/17/2019 Document Reviewed: 01/09/2018 [employer] Patient Education 2020 [employer]. 09/12/2021 07:12:58 Pocos - Total Knee Arthroplasty. Revised 08/01/11. (Custom) [place], [place] [facility] DISCHARGE INSTRUCTIONS TOTAL KNEE ARTHROPLASTY INCISION CARE: Continue the daily dressing care to the knee as instructed in the hospital for 7 days postoperatively. The dressing will then be changed and worn an additional 7 days. You may then discontinue the dressing changes. Please notify the office if any increase in redness, tenderness, drainage, fever, orwound separation is noted. Compression stockings may be helpful if any significant or uncomfortable swelling in the legs is noted postoperatively. Use and removal instructions should be given by physical therapy. If the swelling is below the knee, knee high compression stockings may suffice. If this does cause swelling into the thigh region, waist high compression stockings may be beneficial as well. These can be obtained from most pharmacies, or can be obtained from the hospital or through Home Health. The mild grade compression stockings are best used initially. You may need assistance when applying or removing the compression stockings. MEDICATIONS: You may resume your home medications at the time of discharge. Take 1 Ecotrin Aspirin (81 mg) twice daily with food for an additional month. Pain medication has been prescribed as well. You may continue to use the pain medication every fourhours as needed. Any narcotic pain medication can cause side effects including stomach upset, constipation, or light-headedness. You should not drive or operate machinery, or use alcohol while using the narcotic pain medication. You should not use other pain medications with this prescription pain medication unless further directed by your physician. PHYSICAL THERAPY: Continue the range of motion and strengthening exercises initiated in Physical Therapy in the hospital. [facility] Discharge Instructions for [facility] Physical Therapy Cont. Continue weight bearing, as ordered, to the operated knee for four to six weeks as directed in Physical Therapy, or until your strength is improved and Physical Therapy will then allow you to progress to full weight. This will be with the use of a walker or crutches initially. After four or six weeks you may then progress to the use of one crutch, or a cane. A quad-cane is preferred as this is more stable. Physical therapy as begun in the hospital will continue at home, possible with the nurses medical assistants phlebotomists of Home Health Physical Therapy or in the hospital as an outpatient. When you have become independent withthe physical therapy program, this will then be discontinued as a supervised program and you will be instructed to continue the physical therapy exercises at home. Your exercises are little to successful rehabilitation. You should gain full extension first, hopefully before hospital discharge, then continue to do the exercises to maintain this, and gain 90 degreesflexion by one month post-op. Do the exercises daily, twice if preferred. DRIVING: Do NOT Drive FOLLOW-UP OFFICE VISIT: 4 weeks postop. Cas Severino, DO [facility] [address] [place], [place] [id number] Reviewed: 09-15 Revised 06/21 Follow Up Care 09/04/2021 15:44:18 With:Cas Severino Address: [address] [place] [address] Business (1) When:10/18/2021 15:00:00 With:KERRI LUGO Address: [address] [place] [phone] Business (1) When: Unknown [facility]04-12-2022 NotePT Evaluation completed with an AMPAC score of 16/24. Pt was able to perform bed mobility with Mod I and transfers with Min A. Pt was able to ambulate 10 feet with FWW and Min A. [facility] follow daily [facility] [id number]:127[facility]11-23-[facility]21 Evaluation note* Encounter Date Diagnosis Assessment Notes Treatment Notes Treatment Clinical Notes Apr, Cough (ICD-10 - R05.9) FINAL READ shows chronic appearing interstitial changes. No acute cardiopulmonary changes noted. Results were reviewed and discussed with pt in office at time of visit and they verbally understood these findings. Apr, Respiratory infection (ICD-10 - J98.8) Abx as directed with food. Supportive care as directed. Push fluids and rest. Pt is to take otc antipyretic prn for fever and aches. Pt is to take otc cough suppressant prn for cough. Pt is to be re-evaluated after tx if sx worsen or don't improve by pcp or UC. Pt is to call the office with any questions or concerns regarding dx and tx. Pt understood and agreed to tx plan. Apr, Contact with and (suspected) exposure to other viral communicable diseases (ICD-10 - Z20.828) Covid test negative. [place] test performed per pt request, and that was also negative. See above tx plan. Apr, Other Additional time spent conducting pre-visit phone call, screening for symptoms, instructions on social distancing, application and removal of PPE, and cleaning of examination room, equipment and supplies was preformed. Patient education given for testing methodology and results. Patient care instructions given in writting by [facility] Care At Home document. [employer] Other Evaluation + Plan note Future Appointments Appointment Date:09/19/2021 11:30:00 AM Scheduled Provider: Location:[facility] - Reported* Type Description Date Medical History Hypertension Medical History Hypothyroid Medical History Bipolar 1 disorder Medical History RA Medical History Arthritis Surgical History partial knee replacement Surgical History Uvulopalatopharyngoplasty Surgical History cholecystectomy Surgical History tonsillectomy and adenoidectomy Surgical History knee replacement Hospitalization History pyelonephritis 2009 [employer] Other Hospital course Narrative No data available for this section [facility] No data available for this section [facility] No data available for this section [facility] Summary Purpose Family History No Family History Records FoundNo Family History Records FoundNo Family History Records FoundNo Family History Records FoundNo Family History Records Found Advance Directives No Advanced Directives Records FoundNo Advanced Directives Records FoundNo Advanced Directives Records FoundNo Advanced Directives Records FoundNo Advanced Directives Records Found Additional Source Comments INFORMATION SOURCE (unrecogn ized section and content) DATE CREATED AUTHOR 05/18/2018 [facility] DATE CREATED AUTHOR AUTHOR'S ORGANIZ ATION 12/31/2019 [facility] DATE CREATED AUTHOR AUTHOR'S ORGANIZ ATION 07/12/2021 [facility] DATE CREATED AUTHOR AUTHOR'S ORGANIZ ATION 03/10/2022 [facility] DATE CREATED AUTHOR AUTHOR'S ORGANIZ ATION 11/16/2022 [facility] REASON FOR VISIT (unrecogniz ed section and content) #23 4 to 6 weeks of symptoms , headache, sore throat Care Team (unrecognized sect ion and content) Personnel Name: KERRI LUGO CNP Address: [address] [place] [address] [place] Name: Nori Gomez FOR RECORDS PERTAINING TO PATIENTS WHO ARE OR HAVE BEEN ENROLLED IN A CHEMICAL DEPENDENCY/SUBSTANCEABUSE PROGRAM, SOME INFORMATION MAY BE OMITTED. This clinical summary was aggregated from multiple sources. Caution should be exercised in using it in the provision of clinical care. This summary normalizes information from multiple sources, and as a consequence, information in this document may materially change the coding, format and clinical context of patient data. In addition, data may be omitted in some cases. CLINICAL DECISIONS SHOULD BE BASED ON THE PRIMARY CLINICAL RECORDS. [facility]. provides no warranty or guarantee of the accuracy or completeness of information in this document.
[2023-06-25 13:15] LABS: Basophils Absolute Auto 0.1 10^3/uL (0.0-0.1); Basophils Percent Auto 1.1 % (0.2-2.0); Eosinophils Absolute Auto 0.2 10^3/uL (0.0-0.7); Eosinophils Percent Auto 3.6 % (0.9-7.0); Hematocrit 33.5 % (36.0-48.0); Hemoglobin 11.6 g/dL (12.0-16.0); Immature Granulocytes Abs Auto 0.02 10^3/uL (0.00-0.03); Immature Granulocytes Pct Auto 0.4 % (0.0-0.5); Lymphocytes Absolute Auto 1.6 10^3/uL (1.2-3.8); Lymphocytes Percent Auto 30.5 % (20.5-60.0); Mean Corpuscular HGB Conc 34.6 g/dL (29.9-35.2); Mean Corpuscular Hemoglobin 30.8 pg (26.7-34.0); Mean Corpuscular Volume 88.9 fL (81.0-99.0); Mean Platelet Volume 8.4 fL (9.5-13.5); Monocytes Absolute Auto 0.6 10^3/uL (0.3-0.8); Monocytes Percent Auto 11.5 % (1.7-12.0); Neutrophils Absolute Auto 2.8 10^3/uL (1.4-6.5); Neutrophils Percent Auto 52.9 % (43.0-75.0); Platelet Count 320 10^3/uL (150-450); Red Blood Count 3.77 10^6/uL (4.20-5.40); Red Cell Distribution Width 12.8 % (11.0-15.0); White Blood Count 5.3 10^3/uL (4.0-11.0)
[2023-06-25 13:54] LABS: Alanine Aminotransferase 24 U/L (14-59); Albumin Globulin Ratio 0.9; Albumin Level 3.6 g/dL (3.4-5.0); Alkaline Phosphatase 130 U/L (46-116); Aspartate Amino Transferase 24 U/L (15-37); BUN Creatinine Ratio 20.7; Bilirubin Total 0.4 mg/dL (0.2-1.0); Calcium 9.1 mg/dL (8.5-10.1); Carbon Dioxide 29.1 mmol/L (21.0-32.0); Chloride 95 mmol/L (98-107); Estimated GFR (African America >60 (>=60); Estimated GFR (Non-African Ame >60 (>=60); Free T3 2.23 pg/mL (2.18-3.98); Globulin 3.9 g/dL; Glucose 81 mg/dL (74-106); Potassium 4.1 mmol/L (3.5-5.1); Sodium 133 mmol/L (136-145); Thyroid Stimulating Hormone 2.785 uIU/mL (0.358-3.740); Total Protein 7.5 g/dL (6.4-8.2)
[2023-06-25 16:21] LABS: Free T4 0.89 ng/dL (0.76-1.46)
== END 2023-06-25 12:40 | disposition home or self-care (01) ==
LOC: LAB 12:41
PROVIDERS: PCP Nurse Practitioner; Visit Provider Nurse Practitioner
DX: E03.9 Hypothyroidism, unspecified (principal); R42 Dizziness and giddiness
CPT/HCPCS: 36415; 80053; 84439; 84443; 84481; 85025

== ENCOUNTER 2023-07-04 13:10 | Outpatient (OUT) | payer MEDICARE, OTHER, SELFPAY ==
--- OUTSIDE RECORDS SUMMARY | 2023-07-04 13:16 | XMS_ITS | CCD ---
Author Name Unknown Address [address] [place] [address] Organization [facility] Care Team Providers Care Assurance Analyst Name Role Phone VICTORIA BURR Unavailable Unavailable PAVLOCK, YESSY MEJIA Unavailable Unavailable FANVICTORIA MCCLELLAND Unavailable Unavailable PAVLOCK, YESSY MEJIA Unavailable Unavailable PAN SANDERSON Primary Care Physician Nori Odonnell Unavailable Unavailable AICHKERRI BOATENG Primary Care Physician Wilmer Patino Unavailable Pocos, DO Cas Joe Referring Unavailable Pocos, DO Cas oJe Attending Unavailable Pocos, DO Cas Joe Admitting [...] Pocos, DO Cas Joe Attending Unavailable AICHHOLZ, PIPELINE OPERATOR KERRI Consulting Unavailable AICHHOLZ, PIPELINE OPERATOR KERRI Primary Care Unavailable AICHHOLZ, PIPELINE OPERATOR KERRI Admitting Unavailable AICHHOLZ, PIPELINE OPERATOR KERRI Attending Unavailable AICHHOLZ, PIPELINE OPERATOR KERRI Consulting Unavailable AICHHOLZ, PIPELINE OPERATOR KERRI Primary Care Unavailable AICHHOLZ, PIPELINE OPERATOR KERRI Admitting Unavailable AICHHOLZ, PIPELINE OPERATOR KERRI Attending Unavailable AICHHOLZ, PIPELINE OPERATOR KERRI Consulting Unavailable AICHHOLZ, PIPELINE OPERATOR KERRI Primary Care Unavailable AICHHOLZ, PIPELINE OPERATOR KERRI Admitting Unavailable AICHHOLZ, PIPELINE OPERATOR KERRI Attending Unavailable AICHHOLZ, PIPELINE OPERATOR KERRI Consulting Unavailable AICHHOLZ, PIPELINE OPERATOR KERRI Primary Care Unavailable AICHHOLZ, PIPELINE OPERATOR KERRI Admitting Unavailable AICHHOLZ, PIPELINE OPERATOR KERRI Attending Unavailable AICHHOLZ, PIPELINE OPERATOR KERRI Primary Care Unavailable DR CAS BAIG V Consulting Unavailable AICHHOLZ, PIPELINE OPERATOR KERRI Admitting Unavailable AICHHOLZ, PIPELINE OPERATOR KERRI Attending Unavailable AICHHOLZ, PIPELINE OPERATOR KERRI Consulting Unavailable AICHHOLZ, KERRI Attending Unavailable Allergies Allergy Classification Reported Allergen(s) Allergy Type Date of Onset Reaction(s) Facility (7 sources) Codeine; Translations: [CODEINE] Drug Allergy 7 nausea, vomiting [facility] Repository (1 source) Penicillins; Translations: [PENICILLINS] Propensity to adverse reactions to drug (disorder) 7 [facility] Repository (5 sources) Penicillin; Translations: [penicillin] Drug Allergy [facility] (1 source) Penicillin G Drug Allergy [facility] Other Medications Current Medications Medication Drug Class(es) Dates Sig (Normalized) Sig (Original) ashwaganda/dev root (3 sources) Start: 09-15-2021 ashwaganda/dev root ashwaganda/dev root, Oral, Daily Start Date: 09/15/21 Status: Ordered aspirin 81 mg delayed release oral tablet (2 sources) Platelet Aggregation Inhibitor, Nonsteroidal Anti-inflammatory Drug Start: 09-19-2021 Aspirin 81 mg Tab-EC 81 mg = 1 tab(s), Oral, BIDPC, # 60 tab(s), Refills(s) 0, Pharmacy: [facility], cm, 09/18/21 6:21:00 EDT, Height/Length Dosing, 73, kg, 09/18/21 6:21:00 EDT, Weight Dosing Start Date: 09/19/21 Status: Ordered Start: 09-19-2021 Aspirin 81 mg Tab-EC 81 mg = 1 tab(s), Oral, BIDPC, # 60 tab(s), Refills(s) 0, Pharmacy: [facility] [place], cm, 09/18/21 6:21:00 EDT, Height/Length [...] constipation, # 40 cap(s), Refills(s) 0, Pharmacy: [address], [address], cm, 09/18/21 6:21:00 EDT, Height/Length [...] pain, # 40 tab(s), Refills(s) 0, Pharmacy: [address], [address], cm, 09/18/21 6:21:00 EDT, Height/Length [...] Ordered Start: 09-15-2021 take 1 capsule by [facility] once daily venlafaxine 150 mg Cap-ER 150 [...] [Catalytic activity/Vol] 122 U/L Critically high 8-55 [facility] Comment on above: Performed By: #### L IVER, GGT #### [facility] [address] [address] [address] Sarah Beth Benton LIVER PROFILEon 11-07-2022 Albumin [Mass/Vol] 3.8 g/dL Normal 3.4-5.0 [facility] Comment on above: Performed By: #### L IVER, GGT #### [facility] [address] [address] [address] Sarah Beth Benton Albumin/Globulin [Mass ratio] 1.0 {ratio} Normal [facility] Comment on above: Performed By: #### L IVER, GGT #### [facility] [address] [address] [address] Sarah Beth Benton ALP [Catalytic activity/Vol] 119 U/L Critically high 46-116 [facility] Comment on above: Performed By: #### L IVER, GGT #### [facility] [address] [address] [address] Sarah Beth Benton ALT [Catalytic activity/Vol] 27 U/L Normal 14-59 [facility] Comment on above: Performed By: #### L IVER, GGT #### [facility] [address] [address] [address] Sarah Beth Benton AST [Catalytic activity/Vol] 25 U/L Normal 15-37 [facility] Comment on above: Performed By: #### L IVER, GGT #### [facility] [address] [address] [address] Sarah Beth Benton BILI, CONJUGATED 0.1 mg/dL Normal 0.0-0.2 [facility] Comment on above: Performed By: #### L IVER, GGT #### [facility] [address] [address] [address] Sarah Beth Benton Bilirubin [Mass/Vol] 0.5 mg/dL Normal 0.2-1.0 [facility] Comment on above: Performed By: #### L IVER, GGT #### [facility] [address] [address] [address] Sarah Beth Benton Globulin (S) [Mass/Vol] 3.8 g/dL Normal [facility] Comment on above: Performed By: #### L IVER, GGT #### [facility] [address] [address] [address] Sarah Beth Benton Protein [Mass/Vol] 7.6 g/dL Normal 6.4-8.2 [facility] Comment on above: Performed By: #### L IVER, GGT #### [facility] [address] [address] [address] Sarah Beth Benton FREE T4on 10-25-2022 Free T4 [Mass/Vol] 0.76 ng/dL Normal 0.76-1.46 [facility] Comment on above: Performed By: #### L IVER, GGT #### [facility] [address] [place] [address] Dr. Sarah Beth Benton HEMOGRAM AND PLATELon 2022 Hematocrit (Bld) [Volume fraction] 35.9 % Critically low 36.0-48.0 [facility] Comment on above: Performed By: #### L IVER, GGT #### [facility] [address] [place] [address] Dr. Sarah Beth Benton Hemoglobin (Bld) [Mass/Vol] 12.3 g/dL Normal 12.0-16.0 [facility] Comment on above: Performed By: #### L IVER, GGT #### [facility] [address] [place] [address] Dr. Sarha Beth Benton MCH (RBC) [Entitic mass] 30.6 pg Normal 26.7-34.0 [facility] Comment on above: Performed By: #### L IVER, GGT #### [facility] [address] [place] [address] Dr. Sarah Beth Benton MCHC (RBC) [Mass/Vol] 34.3 g/dL Normal 29.9-35.2 [facility] Comment on above: Performed By: #### L IVER, GGT #### [facility] [address] [place] [address] Dr. Sarah Beth Benton MCV (RBC) [Entitic vol] 89.3 fL Normal 81.0-99.0 [facility] Comment on above: Performed By: #### L IVER, GGT #### [facility] [address] [place] [address] Dr. Sarah Beth Benton PLT 356 103/ul Normal 150-450 [facility] Comment on above: Performed By: #### L IVER, GGT #### [facility] [address] [place] [address] Dr. Sarah Beth Benton RBC 4.02 106/ul Critically low 4.20-5.[address] [facility] Comment on above: Performed By: #### L IVER, GGT #### [facility] [address] [address] [address] Sarah Beth Benton WBC 5.9 103/ul Normal 4.0-11.0 [facility] Comment on above: Performed By: #### L IVER, GGT #### [facility] [address] [address] [address] Sarah Beth Benton MG MAMM SCREEN 3D DOUG CADon 10-25-2022 MG MAMM SCREEN 3D DOUG CAD Patient: ANNE KEMP Exam Date: 10/25/2022 : 1955 Gender:F Ordering : MATT KERRI LUGO PIPELINE OPERATOR Admission #: [id number] Family : Order #: [id number] CLICK HERE TO VIEW EXAM RADIOLOGY REPORT [...] lung cancer at age 69. LOCATION: [facility] BREAST COMPOSITION: Scattered areas fibroglandular density. FINDINGS: [...] MD on 10/26/2022 at 12:06 Normal [facility] PROF 14(COMP METB)on 023 Albumin [Mass/Vol] 3.8 g/dL Normal 3.4-5.0 [facility] Comment on above: Performed By: #### P THINT #### [facility] [address] [address] [address] Sarah Beth Benton Albumin/Globulin [Mass ratio] 1.0 {ratio} Normal [facility] Comment on above: Performed By: #### P THINT #### [facility] [address] [address] [address] Sarah Beth Benton ALP [Catalytic activity/Vol] 139 U/L Critically high 46-116 [facility] Comment on above: Performed By: #### P THINT #### [facility] [address] [address] [address] Sarah Beth Benton ALT [Catalytic activity/Vol] 29 U/L Normal 14-59 [facility] Comment on above: Performed By: #### P THINT #### [facility] [address] [address] [address] Sarah Beth Benton Anion gap [Moles/Vol] 10.2 mmol/L Normal [facility] Comment on above: Performed By: #### P THINT #### [facility] [address] [address] [address] Sarah Beth Benton AST [Catalytic activity/Vol] 23 U/L Normal 15-37 [facility] Comment on above: Performed By: #### P THINT #### [facility] [address] [address] [address] Sarah Beth Benton Bilirubin [Mass/Vol] 0.3 mg/dL Normal 0.2-1.0 [facility] Comment on above: Performed By: #### P THINT #### [facility] [address] [address] [address] Sarah Beth Benton Calcium [Mass/Vol] 9.3 mg/dL Normal 8.5-10.1 [facility] Comment on above: Performed By: #### P THINT #### [facility] [address] [address] [address] Sarah Beth Benton Chloride [Moles/Vol] 98 mmol/L Normal 98-107 [facility] Comment on above: Performed By: #### P THINT #### [facility] [address] [address] [address] Sarah Beth Benton CO2 [Moles/Vol] 30.7 mmol/L Normal 21.0-32.0 [facility] Comment on above: Performed By: #### P THINT #### [facility] [address] [address] [address] Sarah Beth Benton Creatinine [Mass/Vol] 0.86 mg/dL Normal 0.55-1.02 [facility] Comment on above: Performed By: #### P THINT #### [facility] [address] [address] [address] Sarah Beth Benton EGFR-AF GHANAIAN >60 Normal >=60 [facility] Comment on above: Performed By: #### P THINT #### [facility] [address] [address] [address] Sarah Beth Benton EGFR-NON AF GHANAIAN >60 Normal >=60 [facility] Comment on above: Performed By: #### P THINT #### [facility] [address] [address] [address] Sarah Beth Benton Globulin (S) [Mass/Vol] 3.8 g/dL Normal [facility] Comment on above: Performed By: #### P THINT #### [facility] [address] [address] [address] Sarah Beth Benton Glucose [Mass/Vol] 89 mg/dL Normal 74-106 [facility] Comment on above: Performed By: #### P THINT #### [facility] [address] [address] [address] Sarah Beth Benton Potassium [Moles/Vol] 3.9 mmol/L Normal 3.5-5.1 [facility] Comment on above: Performed By: #### P THINT #### [facility] [address] [address] [address] Sarah Beth Benton Protein [Mass/Vol] 7.6 g/dL Normal 6.4-8.2 [facility] Comment on above: Performed By: #### P THINT #### [facility] [address] [address] [address] Sarah Beth Benton Sodium [Moles/Vol] 135 mmol/L Critically low 136-145 [facility] Comment on above: Performed By: #### P THINT #### [facility] [address] [place] [address] Dr. Sarah Beth Benton Urea nitrogen [Mass/Vol] 17.0 mg/dL Normal 7.0-18.0 [facility] Comment on above: Performed By: #### P THINT #### [facility] [address] [place] [address] Dr. Sarah Beth Benton Urea nitrogen/Creatinine [Mass ratio] 19.8 mg/mg Normal [facility] Comment on above: Performed By: #### P THINT #### [facility] [address] [place] [address] Dr. Sarah Beth Benton TSHon 10-25-2022 TSH 2.754 uIU/mL Normal 0.358-3.740 [facility] Comment on above: Performed By: #### P THINT #### [facility] [address] [place] [address] Dr. Sarah Beth Benton METANEPHRINES PLASMA FREEon 07-24-2022 Metanephrine, Pl 17.5 pg/mL Normal 0.0-88.0 [facility] Comment on above: Performed By: #### M ETANPF #### [facility] [address] [place] [address] Dr. Sarah Beth Benton Normetanephrine, Pl 90.0 pg/mL Normal 0.0-285.2 [facility] Comment on above: Performed By: #### M ETANPF #### [facility] [address] [place] [address] Dr. Sarah Beth Benton ACTH, PLASMAon 07-20-2022 ACTH, Plasma 38.6 pg/mL Normal 7.2-63.3 [facility] Comment on above: Result Comment: ACTH reference interval for samples collected between 7 and 10 AM. Performed By: #### P THINT #### [facility] [address] [place] [address] Dr. Sarah Beth Benton THYROID ANTIBODIESon 023 Thyroglobulin Antibody <1.0 Normal 0.0-0.9 [facility] Comment on above: Result Comment: Thyr oglobulin Antibody measured by [employer] Methodology Performed By: #### L IVER, GGT #### [facility] [address] [place] [address] Dr. Sarah Beth Benton Thyroid Peroxidase (TPO) Ab <9 Normal 0-34 [facility] Comment on above: Performed By: #### L IVER, GGT #### [facility] [address] [place] [address] Dr. Sarah Beth Benton FREE T3on 07-19-2022 FREE T3 2.27 pg/mlL Normal 2.18-3.98 [facility] Comment on above: Performed By: #### L IVER, GGT #### [facility] [address] [place] [address] Dr. Sarah Beth Benton FREE T4on 07-19-2022 Free T4 [Mass/Vol] 0.72 ng/dL Critically low 0.76-1.46 [facility] Comment on above: Performed By: #### P THINT #### [facility] [address] [place] [address] Dr. Sarah Beth Benton MAGNESIUMon 07-19-2022 Magnesium [Mass/Vol] 2.4 mg/dL Normal 1.8-2.4 [facility] Comment on above: Performed By: #### L IVER, GGT #### [facility] [address] [place] [address] Dr. Sarah Beth Benton TROPONIN, HIGH SENSITIVITYon 07-19-2022 HSTROP 5.3 pg/mL Normal 4.0-51.3 [facility] Comment on above: Result Comment: CUT- OFF POINTS HAVE BEEN ESTABLISHED BASED ON THE FOURTH UNIVERSAL DEFINITIONS OF MYOCARDIAL INFARCTION. THE UPPER REFERENCE LIMIT (URL) OF TROPONIN, DEFINED THE 99TH PERCENTILE OF cTnI DISTRIBUTION IN A REFERENCE POPULATION, HAS BEEN CONFIRMED THE DECISION THRESHOLD FOR RI DIAGNOSIS. Performed By: #### L IVER, GGT #### [facility] [address] [place] [address] Dr. Sarah Beth Benton TSHon 07-19-2022 TSH 4.556 uIU/mL Critically high 0.358-3.740 [facility] Comment on above: Performed By: #### L IVER, GGT #### [facility] [address] [place] [address] Dr. Sarah Beth Benton RENIN ACTIVITYon 07-14-2022 Renin Activity, Plasma 1.051 ng/mL/hr Normal 0.167-5.380 [facility] Comment on above: Performed By: #### P THINT #### [facility] [address] [place] [address] Dr. Sarah Beth Benton CORTISOLon 07-12-2022 Cortisol 29.1 ug/dL Normal [facility] Comment on above: Result Comment: Corby isol AM 6.2 - 19.4 Cortisol PM 2.3 - 11.9 Performed By: #### L IVER, GGT #### [facility] [address] [place] [address] Dr. Sarah Beth Benton PTH INTACTon 07-12-2022 PTH, Intact 29 pg/mL Normal 15-65 [facility] Comment on above: Performed By: #### P THINT #### [facility] [address] [place] [address] Dr. Sarah Beth Benton CBC AUTO DIFFon 07-11-2022 BASO # 0.1 103/ul Normal 0.0-0.1 [facility] Comment on above: Performed By: #### C BC #### [facility] [address] [place] [address] Dr. Sarah Beth Benton Basophils/100 WBC (Bld) 1.1 % Normal 0.2-2.0 [facility] Comment on above: Performed By: #### C BC #### [facility] [address] [place] [address] Dr. Sarah Beth Benton EO # 0.2 103/ul Normal 0.0-0.7 [facility] Comment on above: Performed By: #### C BC #### [facility] [address] [place] [address] Dr. Sarah Beth Benton Eosinophils/100 WBC (Bld) 3.2 % Normal 0.9-7.0 [facility] Comment on above: Performed By: #### C BC #### [facility] [address] [place] [address] Dr. Sarah Beth Benton Erythrocyte distribution width (RBC) [Ratio] 12.7 % Normal 11.0-15.0 [facility] Comment on above: Performed By: #### C BC #### [facility] [address] [place] [address] Dr. Sarah Beth Benton Hematocrit (Bld) [Volume fraction] 39.2 % Normal 36.0-48.0 [facility] Comment on above: Performed By: #### C BC #### [facility] [address] [place] [address] Dr. Sarah Beth Benton Hemoglobin (Bld) [Mass/Vol] 12.8 g/dL Normal 12.0-16.0 [facility] Comment on above: Performed By: #### C BC #### [facility] [address] [place] [address] Dr. Sarah Beth Benton IG # 0.01 10e3/ul Normal 0.00-0.03 [facility] Comment on above: Performed By: #### C BC #### [facility] [address] [place] [address] Dr. Sarah Beth Benton IG % 0.2 % Normal 0.0-0.5 [facility] Comment on above: Performed By: #### C BC #### [facility] [address] [place] [address] Dr. Sarah Beth Benton LYMPH # 1.9 103/ul Normal 1.2-3.8 [facility] Comment on above: Performed By: #### C BC #### [facility] [address] [place] [address] Dr. Sarah Beth Benton Lymphocytes/100 WBC (Bld) 41.1 % Normal 20.5-60.0 [facility] Comment on above: Performed By: #### C BC #### [facility] [address] [place] [address] Dr. Sarah Beth Benton MANUAL DIFF REQ NO Normal [facility] Comment on above: Performed By: #### C BC #### [facility] [address] [place] [address] Dr. Sarah Beth Benton MCH (RBC) [Entitic mass] 30.2 pg Normal 26.7-34.0 [facility] Comment on above: Performed By: #### C BC #### [facility] [address] [address] [address] aSrah Beth Benton MCHC (RBC) [Mass/Vol] 32.7 g/dL Normal 29.9-35.2 [facility] Comment on above: Performed By: #### C BC #### [facility] [address] [address] [address] Sarah Beth Benton MCV (RBC) [Entitic vol] 92.5 fL Normal 81.0-99.0 [facility] Comment on above: Performed By: #### C BC #### [facility] [address] [address] [address] Sarah Beth Benton MONO # 0.7 103/ul Normal 0.3-0.8 [facility] Comment on above: Performed By: #### C BC #### [facility] [address] [address] [address] Sarah Beth Benton Monocytes/100 WBC (Bld) 14.0 % Critically high 1.7-12.0 [facility] Comment on above: Performed By: #### C BC #### [facility] [address] [address] [address] Sarah Beth Benton NEUT # 1.9 103/ul Normal 1.4-6.5 [facility] Comment on above: Performed By: #### C BC #### [facility] [address] [address] [address] Sarah Beth Benton Neutrophils/100 WBC (Bld) 40.4 % Critically low 43.0-75.0 [facility] Comment on above: Performed By: #### C BC #### [facility] [address] [address] [address] Sarah Beth Benton Platelet mean volume (Bld) [Entitic vol] 8.2 fL Critically low 9.5-13.5 [facility] Comment on above: Performed By: #### C BC #### [facility] [address] [address] [address] Sarah Beth Benton PLT 357 103/ul Normal 150-450 [facility] Comment on above: Performed By: #### C BC #### [facility] [address] [place] [address] Dr. Sarah Beth Benton RBC 4.24 106/ul Normal 4.20-5.40 [facility] Comment on above: Performed By: #### C BC #### [facility] [address] [place] [address] Dr. Sarah Beth Benton WBC 4.7 103/ul Normal 4.0-11.0 [facility] Comment on above: Performed By: #### C BC #### [facility] [address] [address] [address] Sarah Beth Benton CPKon 07-11-2022 CK [Catalytic activity/Vol] 77 U/L Normal 26-192 [facility] Comment on above: Performed By: #### C MP, TSH, CK, LIPID #### [facility] [address] [place] [address] Dr. Sarah Beth Benton FREE T4on 07-11-2022 Free T4 [Mass/Vol] 0.75 ng/dL Critically low 0.76-1.46 [facility] Comment on above: Performed By: #### L IVER, GGT #### [facility] [address] [place] [address] Dr. Sarah Beth Benton LIPID PROFILEon 07-11-2022 CHOL-HDL RATIO NORM SEE BELOW Normal [facility] Comment on above: Result Comment: 3.3 - 4.4 LOW RISK 4.4 - 7.1 AVERAGE RISK 7.1 - 11.0 MODERATE RISK >11.0 HIGH RISK Performed By: #### C MP, TSH, CK, LIPID #### [facility] [address] [place] [address] Dr. Sarah Beth Benton Cholesterol [Mass/Vol] 292 mg/dL Critically high <=200 [facility] Comment on above: Performed By: #### C MP, TSH, CK, LIPID #### [facility] [address] [place] [address] Dr. Sarah Beth Benton Cholesterol in HDL [Mass/Vol] 67 mg/dL Critically high 40-60 [facility] Comment on above: Performed By: #### C MP, TSH, CK, LIPID #### [facility] [address] [address] [address] Sarah Beth Benton Cholesterol in LDL [Mass/Vol] 201.6 mg/dL Normal [facility] Comment on above: Performed By: #### C MP, TSH, CK, LIPID #### [facility] [address] [address] [address] Sarah Beth Benton Cholesterol.total/Ch olesterol in HDL [Mass ratio] 4.4 {ratio} Normal [facility] Comment on above: Performed By: #### C MP, TSH, CK, LIPID #### [facility] [address] [address] [address] Sarah Beth Benton HDL NORMAL > or = 60 mg/dl - LO W CARDIOVASCULAR RISK <40 mg/dl - HIGH CARDIOVASCULAR RISK Normal [facility] Comment on above: Performed By: #### C MP, TSH, CK, LIPID #### [facility] [address] [address] [address] Sarah Beth Benton LDL CALC NORMAL SEE BELOW Normal [facility] Comment on above: Result Comment: <100 mg/dl OPTIMAL 100 - 129 mg/dl NEAR OR ABOVE OPTIMAL 130 - 159 mg/dl BORDERLINE HIGH 160 - 189 mg/dl HIGH >190 mg/dl VERY HIGH Performed By: #### C MP, TSH, CK, LIPID #### [facility] [address] [address] [address] Sarah Beth Benton Triglyceride [Mass/Vol] 117 mg/dL Normal <=150 [facility] Comment on above: Performed By: #### C MP, TSH, CK, LIPID #### [facility] [address] [address] [address] Sarah Beth Benton VLDL CALC 23.4 mg/dL Normal [facility] Comment on above: Performed By: #### C MP, TSH, CK, LIPID #### [facility] [address] [address] [address] Sarah Beth Benton MICROALBUMIN, RAND URon 02-0 mALB 1.6 mg/L Normal <=30.0 [facility] Comment on above: Performed By: #### P THINT #### [facility] [address] [address] [address] Sarah Beth Benton PROF 14(COMP METB)on 023 Albumin [Mass/Vol] 4.0 g/dL Normal 3.4-5.0 [facility] Comment on above: Performed By: #### C MP, TSH, CK, LIPID #### [facility] [address] [place] [address] Dr. Sarah Beth Benton Albumin/Globulin [Mass ratio] 1.1 {ratio} Normal [facility] Comment on above: Performed By: #### C MP, TSH, CK, LIPID #### [facility] [address] [place] [address] Dr. Sarah Beth Benton ALP [Catalytic activity/Vol] 109 U/L Normal 46-116 [facility] Comment on above: Performed By: #### C MP, TSH, CK, LIPID #### [facility] [address] [place] [address] Dr. Sarah Beth Benton ALT [Catalytic activity/Vol] 28 U/L Normal 14-59 [facility] Comment on above: Performed By: #### C MP, TSH, CK, LIPID #### [facility] [address] [place] [address] Dr. Sarah Beth Benton Anion gap [Moles/Vol] 11.7 mmol/L Normal [facility] Comment on above: Performed By: #### C MP, TSH, CK, LIPID #### [facility] [address] [place] [address] Dr. Sarah Beth Benton AST [Catalytic activity/Vol] 28 U/L Normal 15-37 [facility] Comment on above: Performed By: #### C MP, TSH, CK, LIPID #### [facility] [address] [place] [address] Dr. Sarah Beth Benton Bilirubin [Mass/Vol] 0.4 mg/dL Normal 0.2-1.0 [facility] Comment on above: Performed By: #### C MP, TSH, CK, LIPID #### [facility] [address] [place] [address] Dr. Sarah Beth Benton Calcium [Mass/Vol] 9.4 mg/dL Normal 8.5-10.1 [facility] Comment on above: Performed By: #### C MP, TSH, CK, LIPID #### [facility] [address] [place] [address] Dr. Sarah Beth Benton Chloride [Moles/Vol] 100 mmol/L Normal 98-107 [facility] Comment on above: Performed By: #### C MP, TSH, CK, LIPID #### [facility] [address] [place] [address] Dr. Sarah Beth Benton CO2 [Moles/Vol] 32.0 mmol/L Normal 21.0-32.0 [facility] Comment on above: Performed By: #### C MP, TSH, CK, LIPID #### [facility] [address] [place] [address] Dr. aSrah Beth Benton Creatinine [Mass/Vol] 0.85 mg/dL Normal 0.55-1.02 [facility] Comment on above: Performed By: #### C MP, TSH, CK, LIPID #### [facility] [address] [place] [address] Dr. Sarah Beth Benton EGFR-AF GHANAIAN >60 Normal >=60 [facility] Comment on above: Performed By: #### C MP, TSH, CK, LIPID #### [facility] [address] [place] [address] Dr. Sarah Beth Benton EGFR-NON AF GHANAIAN >60 Normal >=60 [facility] Comment on above: Performed By: #### C MP, TSH, CK, LIPID #### [facility] [address] [place] [address] Dr. Sarah Beth Benton Globulin (S) [Mass/Vol] 3.7 g/dL Normal [facility] Comment on above: Performed By: #### C MP, TSH, CK, LIPID #### [facility] [address] [place] [address] Dr. Sarah Beth Benton Glucose [Mass/Vol] 79 mg/dL Normal 74-106 [facility] Comment on above: Performed By: #### C MP, TSH, CK, LIPID #### [facility] [address] [place] [address] Dr. Sarah Beth Benton Potassium [Moles/Vol] 4.7 mmol/L Normal 3.5-5.1 [facility] Comment on above: Performed By: #### C MP, TSH, CK, LIPID #### [facility] [address] [place] [address] Dr. Sarah Beth Benton Protein [Mass/Vol] 7.7 g/dL Normal 6.4-8.2 [facility] Comment on above: Performed By: #### C MP, TSH, CK, LIPID #### [facility] [address] [place] [address] Dr. Sarah Beth Benton Sodium [Moles/Vol] 139 mmol/L Normal 136-145 [facility] Comment on above: Performed By: #### C MP, TSH, CK, LIPID #### [facility] [address] [place] [address] Dr. Sarah Beth Benton Urea nitrogen [Mass/Vol] 16.0 mg/dL Normal 7.0-18.0 [facility] Comment on above: Performed By: #### C MP, TSH, CK, LIPID #### [facility] [address] [place] [address] Dr. Sarah Beth Benton Urea nitrogen/Creatinine [Mass ratio] 18.8 mg/mg Normal [facility] Comment on above: Performed By: #### C MP, TSH, CK, LIPID #### [facility] [address] [place] [address] Dr. Sarah Beth Benton TSHon 07-11-2022 TSH 5.279 uIU/mL Critically high 0.358-3.740 [facility] Comment on above: Performed By: #### C MP, TSH, CK, LIPID #### [facility] [address] [place] [address] Dr. Sarah Beth Benton UA RANDOM W/MICROSCOPICon BACTERIA NONE SEEN Normal NONE SEEN [facility] Comment on above: Performed By: #### U AMIC #### [facility] [address] [place] [address] Dr. Sarah Beth Benton Bilirubin Ql (U) Negative Normal NEGATIVE [facility] Comment on above: Performed By: #### U AMIC #### [facility] [address] [place] [address] Dr. Sarah Beth Benton CAST NONE SEEN Normal NONE SEEN [facility] Comment on above: Performed By: #### U AMIC #### [facility] [address] [address] [address] Sarah Beth Benton Clarity (U) CLEAR Normal CLEAR [facility] Comment on above: Performed By: #### U AMIC #### [facility] [address] [place] [address] Dr. Sarah Beth Benton Color (U) YELLOW Normal YELLOW [facility] Comment on above: Performed By: #### U AMIC #### [facility] [address] [place] [address] Dr. Sarah Beth Benotn Crystals LM Nom (Urine sed) NONE SEEN Normal NONE SEEN [facility] Comment on above: Performed By: #### U AMIC #### [facility] [address] [place] [address] Dr. Sarah Beth Benton Epithelial cells LM Ql (Urine sed) FEW Abnormal NONE SEEN /RARE [facility] Comment on above: Performed By: #### U AMIC #### [facility] [address] [place] [address] Dr. Sarah Beth Benton Glucose Ql (U) Negative Normal NEGATIVE [facility] Comment on above: Performed By: #### U AMIC #### [facility] [address] [address] [address] Sarah Beth Benton Hemoglobin Ql (U) Negative Normal NEGATIVE [facility] Comment on above: Performed By: #### U AMIC #### [facility] [address] [address] [address] Sarah Beth Benton Ketones Ql (U) Negative Normal NEGATIVE [facility] Comment on above: Performed By: #### U AMIC #### [facility] [address] [place] [address] Dr. Sarah Beth Benton LEUKOCYTES Negative Normal NEGATIVE [facility] Comment on above: Performed By: #### U AMIC #### [facility] [address] [address] [address] Sarah Beth Benton MUCOUS SMALL Abnormal NONE SEEN [facility] Comment on above: Performed By: #### U AMIC #### [facility] [address] [place] [address] Dr. Sarah Beth Benton Nitrite Ql (U) Negative Normal NEGATIVE [facility] Comment on above: Performed By: #### U AMIC #### [facility] [address] [place] [address] Dr. Sarah Beth Benton pH (U) 6.0 [pH] Normal 5-9 [facility] Comment on above: Performed By: #### U AMIC #### [facility] [address] [place] [address] Dr. Sarah Beth Benton RBC NONE SEEN Abnormal 0-2 [facility] Comment on above: Performed By: #### U AMIC #### [facility] [address] [place] [address] Dr. Sarah Beth Benton SPEC GRAVITY 1.025 Normal 1.005-<=1.0 25 [facility] Comment on above: Performed By: #### U AMIC #### [facility] [address] [place] [address] Dr. Sarah Beth Benton UA PROTEIN Negative Normal NEGATIVE/ TRACE [facility] Comment on above: Performed By: #### U AMIC #### [facility] [address] [place] [address] Dr. Sarah Beth Benton Urobilinogen Qn (U) 0.2 {Becca'U}/dL Normal 0.2 - 1. 0 [facility] Comment on above: Performed By: #### U AMIC #### [facility] [address] [place] [address] Dr. Sarah Beth Benton WBC NONE SEEN Normal NONE SEEN [facility] Comment on above: Performed By: #### U AMIC #### [facility] [address] [place] [address] Dr. Sarah Beth Benton Insurance Correspondence Off [facility]02-26-2022 Insurance Correspondence Office [id number]#1.00CD:1 27 [facility] Insurance Correspondence Office [id number]#1.00CD:1 27 [facility] Insurance Correspondence Off iceon 11-21-2021 Insurance Correspondence Office [id number]#1.00CD: 127 [facility] Insurance Correspondence Off iceon 11-20-2021 Insurance Correspondence Office [id number]#1.00CD :127 [facility] Preoperative Documentson Preoperative Documents [id number]#1.00C D:127 [facility] Coding Summary.on 09-29-2021 Coding Summary. CD:[id number] Gh0b Ww+PGhlYWQ+GU4PYWLtS51ma TUwbN7WM5cHGL8PJYDBVZQFN M8VKN3mjBA1MWjrI6YvnmJh HekowNOyWM19OIn2CSA5pRlt SQkzzQ9owQEaN2o5ImTvAX25 uR07ZNtjYWTyOkW9AzLxdbzj bWFy U3wmCiEiwIPbTlh+PHRhYmxl IHdpZHRoPScxMDAlJyBzdHls NX6oZe4gGDLbWICkoIgboGNb OiBj u8jvCMFrCNkjZF8rxJsjN1Kp eLR2UXQin4z1Hc37jSS+PHRk REQ1zJwzSTkit153XbCwi9zy IDM3 iSAvNFwqLHX7H79tq1V6MOEd ADGjLQM6qNM4uO0qbQycnofv J7FnvZOcKjB5KZK5eLHjxS2q bGln myrpcQ0rNtk+D75DKH4DWYUK MP5OZsf6Z9DuZxtfiBR+PC90 YUKiRZ07oEVieGHgs5imiVb1 JzEw DOFrMVR2oUbfGJjuk4OzUTGd G48zxOUab4T7YTHofAgyiKFs BoKdiRO4wY7jZZmgjuacp5sf dzsn Lfboy9mvjv65xF31Q04aXGjz VJQtRHB0MORuTNWnlPkcqs5i rR9bQh5+WZhhf5oes4mffSi0 IjIw LQBmcgTxlLnuHUA5q2JbHs88 Q7RadOdeu0GwAwc1jf24nLQm b5H1wIX8GZndVWTekA4tVHmr ZnQ6 DHWyBwFvlT95uRZgVUuiOw7b iMjwjWrbIY9bUNSbbjdlIRRr fJ1zJJJlrQRroJzjKZ5qKBCo bjtm w832TgDlEOZ4AITpdGUvW6Rh kZ8jNaBlYBGtRNLrB1QrsHAk DCowR529XNtmHcX0ESOflxOp Y2Fs LHAkwEpkPsI1o5C5Mk9It0Gx xijrLZP6UHaiGRA0UgFhTtVv JiG5D1SxJqo3CKVvvNunZZ4q J3Bh ATOhzknjrenpgUH9VIIaLOAq iO19zULpWDspUr6jh3F5y862 HADjVVDzoQ24No6arLszLNHb dCBU rV2uafszc6isabrnTiLlUTXn IWd0BYk1ACGhbKpsUaFgBHY5 DmC2CVU8cEGsgV6jyNmcrytx dG9w Oyc+S97lkE7xOOC1IOL7mlap HBQcxrYpNP39MA47W8NaSvfl dGFibGU+BVQehsUutHuoZD0q YmFj l1icn4McKGhgS6XtMEOdOBzl Rxm1RQJhYWI1iFH2eU2fZZZd SImhb4K4dTB5Q8DypyMgjo6f b2xs XRYdOBfwS10wjVDmi2I9LSSu gKX6SGMwsTkxMfFneD47Lur+ LQAhpGqti7KcLxxmv5vsc7jk dGg9 MfObYSIpdrMcoUqaAVA5v3Xu Al74G42vCGkiUPItZPFnTOPr IVCihHlysz3beZ0fSx2+PGNv bCB3 lBD9hL6gUHKsIiG0TEmlS554 ZfYxzSXdWqvad0kgr9copOf9 LdHtIRMlgbBtoYufJIM0w8Pe Lz48 W50pCTsvWTQgZEQrLAAhFSSv nWiyts0bsP5hHp6+IK1fe7cg nu53pW23jPH+IBScGNZ8zXkn PSdw XLRhjE8fSLsgAyI7MBYsFmWk tF21xWSdMIitVm3duXlgnDsk HU0dZSVrxebre300EzWyk1md IDEw sSLhHChhGSP1J07uh3Q5VEMt CSEsOIE9cRH3cL8udSgsimkq bGVmdDsgdmVydGljYWwtYWxp Z246 IHRvcDsnPlBhdGllbnQgTmFt KJy8O3SjJcb7PIZkzIuuWQ2j kQQdARqnMl5bdEyovXqdGW1p NTBp vpijl079KxYzx3wiETBnrDHq IFccPLO9L64eb2G6AMSwTZBn ZCW1cZM5rI9auIuatxrbqWPa dDsg ivJhmRjsIVgqGJrmR795JQRg oXggEcIekoKnSXCdrGT8VL91 QI72fUBdp3Y4lTT7M4BhTMZj bmct ftasbRQ4LCLqMMDjpB36Za8c hFueDx3tBXDoMUC9OIOabMHj Y6KuwB0xDjMgDYFdRPRjO0Ws eHQt IGbkV872THxpEeO0AXJxxxKo H2OcJCYnkWzwZsH6x3A3Wg2S J3Y3LQ90ZN00zQSar1K6fJW2 J3Bh NJGtgewwbytfzMZ0QBGkMUFw cT84Rt4azXhbVf8yJWJhRPC3 ONSibPAgS0BvtA7kDmPhBEQc MDAw X2TdoNMmFUwpY255WYaeApL8 PYHvmhCoU0FgIUNlxBbcVwQ3 v2P2Gc0SGVy0MF50MS66cTTy c3R5 hFJ7E3OyWQBaemgeyjpwbLX2 CIEnKEZfzU67Fg9cgWwtHj2q JGOnKDG8LJKunTGrQ0AtyK9a OiAj NGVhFPZxR6TpmHZeROoaU223 DAdaVkH7PJIqpsRzW4RqLMMq kZjeEgF2j5O6Ss9HVUXcZK29 IFR5 dBX7QA15ZU01K4LmGtlrrKKf bGU+PHRhYmxlIHdpZHRoPScx RWHoOdIzlBqsSW3jDy3sZDVl LWNv eVownKBtSiLhn5elFOXoFJhl XL6xlEnzL4EbjNF2EYHga7t1 Xd74Z16tV3ZluED+PGNvbCB3 aWR0 oH4iBvHvNaH9OJyxH729JiOh mNIqZvegv8mtl4uytKf2LmX3 IQUvsjQteLylNTU3o4EmYa04 Y29s IHdpZHRoPSIxNSUiIHZhbGln ez8atR0vMz1+QDGzuCX4uNM2 nA8sWcUhQiS6XNwvN483GgQi cCIv Czfej8okw2vdnZy3QlFwLIYt bsPcoMkwWPE9h8GsUb29K1Ph hPpty3OtOxo1ox40rXCkl7E4 bGU9 Z1LyCPAjrngvrRTpcBthFM6n FFPmnukzRGMwnL7pVYJgI7u5 SeNvUrX1ICqgN3QhaxD3ONEq cHQg SBmrJDR4X26cm8W8DOBjXXGg SGO7xLN9bZ8esSrvduuqbSUt dHnecdLxsDlfAInbOEqxZ175 IHRv fHjmLTSlhT0hUZNehLFqlLea BF6hWMEuonsaZh8CZIyGZSdv Kh1ADBpvwPF+QVMzSHP6sExa PSdw COWosF4gRYBgG2i2HpPqLcG0 MCekP9XsVEUigfuoZv92yX0z IrGwUpJ7KBlvW1RixcL9FBHa cHQg IIdbVIC0I39az3F6MARuKOHf VEV9yPB8iD1jpEuhztqssOFd vFnwpjYetYkaMNzgFAddO931 IHRv bTefEnTzNcW7FsW8TKQ0Z1Kv Zon0JYKucHfvRK4jrAWiAQsw Ja9cxRsfqRloIG3fDCRyomzq YWRk iY8hFGWdgQCuhDvqOZ6hUPQb uhasd109NzPrWBT8KLOvpWIl T1VbkP4dSxOvQMQzPLDuY0Yw eHQt ZWqxN400PJazGtY0LWGutiUg N4GhJZEfzCrjDfU3e7W8Wk33 NiBZZWFyczwvdGQ+PHRkIHN0 eWxl LJyhNJQcuN5jQUBaV6y3GjQj CwF3UTrqD6CbTNPbrsfoQa06 pY9bNhVlZsH0BEgrL5QvqiS6 IDEw lIWeIPuvSQI5F01dy5V3IFBy HEHjBYL1jYL3eZ1pcXdbsxwd bGVmdDsgdmVydGljYWwtYWxp Z246 IHRvcDsnPkZlbWFsZTwvdGQ+ DBApUNP7fXtwYLauFNNxiK8k COTgF4c7QkCpLvQ0OKuxQ1Ok ZGRp lytmJz59xN7rZeNyAiC3RRuh D8NhihU8SPZssTFsYVloDVU6 X89sr4K1XXTcODYqISG7cFP4 dC1h bGlnbjogbGVmdDsgdmVydGlj YJfmYQneK588SBTvmUjhMn3j w8ZzivB4nL8pPH34NC36F4Ss Pjwv dGFibGU+PHRhYmxlIHdpZHRo WKulFKOfZfKajHvoGP9pMw0f HMOhQDOqpSimhDQtItUuh1im YXBz LUziPZ8caWuzC7MhjPO9BYVa g1k3Jr75U26lJ6UxcIC+PGNv cDL2eWF6oY5cIrGnYfR1GOuh Z249 DvIdxXMtKexbf7jji5cqmHw2 UhIjJKNsxzIbwQthZCU9k8Vt Yv19E02aNQwlBAFzMIFcQCCu IHZh dMmrvy2ocN7rKd3+PGNvbCB3 lHB5vN2sOlEtIsD9HGinL234 EnIqsISvGmodV68oK7YjsOS+ PHRy Fgt0TZHllAtwGR2tgRGuJBts Db4xZCM5LaSdJpNvIRxyO7Pj HVYtkowuyidnqLJ6NKMrMCHl aW47 Lq0mfJufRu0kHOIwXRB5SJYn jTIyD9UpwT4hSfZsWNIjKUXj E9UsaXZwFNajB279AMwxRsF7 IHZl fsDzZ6OgUBVrqPuzQiU2p3T3 Dp4MjSwmyINcSS8hFnMiMRb4 Q2EjGgx3SFChfTzqKL0byEOg ZGlu Sc4rqGjngTomBW0jOAXoubrp y295JvQig9twHSVflTBnYBtx MKF4H94ss8A1CSBpKMLyJAR2 dGV4 jM5wkNtvckmftPTnwCigjxJs rMkdFAkcRRljO576CNPnqTjr WhYOCoa8B2FmLuh4MEUofQyc ZT0n kORyYTxiAy8uuHvaeElqXL8f PHAhqzudx753RrPdu8vuHUOs zMKnRGmyYLG3T72am0W5WIWd MDAw LLX9uNN1lO1igNkmsptqcNEw yLwbzeJcsIisQSbvZQmmG861 DWRegLrxGl7WUwl2M7CrRsq9 ZCBz dVrxMP8ktJStAHxiRy5tzZce yGazSE8kVTCuzjegf089ZaYo q2blMBQtqBFgPGxoROT8W32w b3I6 TRUhKXMwYYP9lNH1pT0upNqe bjogbGVmdDsgdmVydGljYWwt SYnkI574MFHyzUtvHqKjiPCm Ojwv dGQ+AM05mw16V4KlWeuqLnh1 YDAhQPR7bCP1eR0dUCKmKLms d0V5eFS6Q8IayrZoyo3fn7tk YXBz ZTog (more content not included)... Normal [facility] IntraOperative Documentson 0 09-27-2021 IntraOperative Documents [id number]#1.00CD: 127 Normal [facility] Main OR Intraoperative Recor don 09-22-2021 Main OR Intraoperative Record IntraOp Document Type FT Summary Primary Physician: Cas Severino DO Finalized Date/Time: 09/22/21 09:12:48 Pt. Name: ANNE KEMP/Sex: 1955 Female Med Rec #: [id number] Physician: Cas Severino DO Financial #: [id number] Pt. Type: O Room/Bed: N317/01 Admit/Disch: 09/19/21 08:30:31 - 09/21/21 12:20:00 Institution: Case Times FT Entry 1 Patient Times In Room 09/19/21 10:58:00 Out Room 09/19/21 13:18:00 Procedure Times Start 09/19/21 11:38:00 Stop 09/19/21 13:13:00 Anesthesia Times Start 09/19/21 10:58:00 Stop 09/19/21 13:18:00 Block Timeout w/ 09/19/21 10:05:00 Anesthesia Last Modified By: Gila Armas RN 09/19/21 13:18:18 General Comments: Block info: Thee ECONOMIC DEVELOPMENT COORDINATOR, Kody RN assisting. [phone], HR 64, SpO2 98% RA. Chris RN 09/22/21 Chart opened to review and send charges [facility] CSFA Case Attendance FT Entry 1 Entry 2 Entry 3 Case Attendee Danny CULLEN, Luis M Severino DO, Cas Armas CST, Lizet Hebert Role Performed ECONOMIC DEVELOPMENT COORDINATOR Surgeon - Primary TERRAZZO WORKER APPRENTICE/SA Time In 09/19/21 10:58:00 09/19/21 10:58:00 09/19/21 10:58:00 Time Out 09/19/21 13:18:00 09/19/21 13:18:00 09/19/21 13:18:00 Procedure KNEE TOTAL ARTHROPLASTY KNEE TOTAL ARTHROPLASTY KNEE TOTAL ARTHROPLASTY REVISION(Left) REVISION(Left) REVISION(Left) Comments Last Modified By: Pawel TERRAZZO WORKER APPRENTICE, Lizet Armas RN, Gila Dover RN 09/22/21 09:09:17 09/19/21 13:24:05 09/19/21 13:24:05 Entry 4 Entry 5 Entry 6 Case Attendee Jaleesa TERRAZZO WORKER APPRENTICE, José Miguel Cristobal TERRAZZO WORKER APPRENTICE, Renetta Armas RN, Gila Hebert Role Performed Scrub - Primary Staff - Other Core Shaper Top - Primary Time In 09/19/21 10:58:00 09/19/21 10:58:00 09/19/21 10:58:00 Time Out 09/19/21 13:18:00 09/19/21 13:18:00 09/19/21 13:18:00 Procedure KNEE TOTAL ARTHROPLASTY KNEE TOTAL ARTHROPLASTY KNEE TOTAL ARTHROPLASTY REVISION(Left) REVISION(Left) REVISION(Left) Comments Second scrub Last Modified By: Pawel RN, Gila Armas RN, Gila Dover RN 09/19/21 13:24:05 09/19/21 13:24:05 09/19/21 13:24:05 Entry 7 Case Attendee Ed ROCHA, Renetta Estrada Role Performed Staff - Other Time In 09/19/21 10:58:00 Time Out 09/19/21 13:18:00 Procedure KNEE TOTAL ARTHROPLASTY REVISION(Left) Comments OSC/ Les RN Last Modified By: Gila Armas RN 09/19/21 13:24:05 General Comments: Vijay Peralta, Fany Reps. Chris ROCHAtelegraph editor Protocols FT Pre-Care Text: Implements protective measures [...] CRNA, Given Participants Cas Severino DO, Roth TERRAZZO WORKER APPRENTICE, Jaleesa Holland TERRAZZO WORKER APPRENTICE, Pawel Lincoln RN, Levar Moreland CST, Renetta Joe Time Out Complete 09/19/21 11:32:00 Outcomes Met? Yes Last Modified By: Gila Armas RN 09/19/21 11:43:57 Post-Care Text: The patient is free from signs and symptoms of injury caused by extraneous objects General Comments: Reps present for time out. Chris ROCHAdoughnut maker Information FT Pre-Care Text: Verifies allergies Entry [...] injury due (more content not included)... Normal [facility] Auto Diffon 09-21-2021 Basophils/100 WBC (Bld) 0.0 % Normal 0.0-2.0 [facility] Comment on above: Order Comment: Order Added by Discern Expert. Performed By: #### 2 [id number], [id number], 0229703, 4009969, 4091514, [id number] ####[facility] [address] [place] [address] Basophils/Leukocytes Auto (Bld) [Pure # fraction] 0.0 E9/L Normal 0.0-0.2 [facility] Comment on above: Order Comment: Order Added by Discern Expert. Performed By: #### 2 [id number], 9351328, 0063235, 5147378, 6077316, [id number] ####[facility] [address] [place] [address] Eosinophils/100 WBC (Bld) 0.2 % Normal 0.0-8.0 [facility] Comment on above: Order Comment: Order Added by Discern Expert. Performed By: #### 2 125809, 7458579, 1998862, 1871390, 2954941, 76266958 ####[facility] [address] [place] [address] Eosinophils/Leukocyt es Auto (Bld) [Pure # fraction] 0.0 E9/L Normal 0.0-0.5 [facility] Comment on above: Order Comment: Order Added by Kylee Expert. Performed By: #### 2 394878, 9937354, 5746592, 3223193, 6470253, 60680568 ####[facility] [address] [place] [address] Lymphocytes/100 WBC (Bld) 7.3 % Low 14.0-50.0 [facility] Comment on above: Order Comment: Order Added by Discern Expert. Performed By: #### 2 176449, 4970095, 3097097, 4829962, 8960150, 50061031 ####[facility] [address] [place] [address] Lymphocytes/Leukocyt es Auto (Bld) [Pure # fraction] 1.0 E9/L Normal 1.0-4.0 [facility] Comment on above: Order Comment: Order Added by Kylee Expert. Performed By: #### 2 506823, 3118985, 3784331, 9830735, 6396987, [id number] ####[address] [place] [address] Monocytes/100 WBC (Bld) 11.0 % Normal 4.0-14.0 [facility] Comment on above: Order Comment: Order Added by Kylee Expert. Performed By: #### 2 504855, 5998256, 0990419, 4927084, 3828325, 25177234 ####[address] [place] [address] Monocytes/Leukocytes Auto (Bld) [Pure # fraction] 1.5 E9/L High 0.2-1.0 [facility] Comment on above: Order Comment: Order Added by Kylee Expert. Performed By: #### 2 933392, 2429357, 6839728, 9720042, 3669477, 21289710 ####[facility] [address] [place] [address] Neutrophils/100 WBC (Bld) 81.5 % High 36.0-75.0 [facility] Comment on above: Order Comment: Order Added by Kylee Expert. Performed By: #### 2 491974, 6581245, 0522732, 5019093, 7966454, 34532054 ####[address] [place] [address] Neutrophils/Leukocyt es Auto (Bld) [Pure # fraction] 10.8 E9/L High 2.0-7.5 [facility] Comment on above: Order Comment: Order Added by Discern Expert. Performed By: #### 2 620570, 7615113, 0344740, 6530779, 9591577, 73537143 ####[facility] [id number] [place] [address] BUNon 09-21-2021 Urea nitrogen [Mass/Vol] 7 mg/dL Normal 5-21 [facility] Comment on above: Performed By: #### 2 139087, 6834368, 1342257, 0481508, 1509135, 78967850 ####[address] [address] CBC w/ Auto Diffon Erythrocyte distribution width (RBC) [Ratio] 13.4 % Normal 10.9-14.2 [facility] Comment on above: Performed By: #### 2 210895, 7104996, 5688123, 5399150, 1521386, 03023297 ####[address] [place] [address] Hematocrit (Bld) [Volume fraction] 34.6 % Normal 34.0-46.0 [facility] Comment on above: Performed By: #### 2 420763, 6442846, 1375855, 2641057, 9931310, 39068964 ####[address] [place] [address] Hemoglobin (Bld) [Mass/Vol] 11.9 g/dL Low 12.0-16.0 [facility] Comment on above: Performed By: #### 2 310267, 5374007, 3288926, 9982841, 0012563, 43305153 ####[address] [place] [address] MCH (RBC) [Entitic mass] 30.7 pg Normal 27.0-34.0 [facility] Comment on above: Performed By: #### 2 463793, 9073193, 8170378, 0785523, 3591788, 65183072 ####[address] [place] [address] MCHC (RBC) [Mass/Vol] 34.5 g/dL Normal 31.4-36.0 [facility] Comment on above: Performed By: #### 2 443660, 8580595, 5315551, 5932636, 3294424, 06350799 ####[address] [place] [address] MCV (RBC) [Entitic vol] 88.9 fL Normal 80.0-100.0 [facility] Comment on above: Performed By: #### 2 912412, 1147120, 6772373, 4476398, 9910695, 96081089 ####[address] [address] Platelet mean volume (Bld) [Entitic vol] 6.9 fL Normal 6.4-10.8 [facility] Comment on above: Performed By: #### 2 920016, 3315177, 4900161, 0342942, 9849735, 17322908 ####[address] [address] Platelets (Bld) [#/Vol] 337.0 E9/L Normal 150.0-500.0 [facility] Comment on above: Performed By: #### 2 273315, 9018258, 3221099, 7638747, 0392122, 77078569 ####[address] [place] [address] RBC (Bld) [#/Vol] 3.9 E12/L Low 4.3-5.9 [facility] Comment on above: Performed By: #### 2 847260, 4073764, 2136972, 7767995, 3087096, 57368056 ####[facility] [id number] [place] [address] WBC corrected for nucl RBC Auto (Bld) [#/Vol] 13.3 E9/L High 4.0-11.0 [facility] Comment on above: Performed By: #### 2 705019, 3153399, 7729157, 7162732, 0528827, 81038250 ####[facility] [id number] [place] [address] CHEMISTRYOrdered By: SYSTEM SYSTEM on 09-21-2021 Anion gap [Moles/Vol] 15 mmol/L Normal 6 - 16 mEq/L FT Remisol Chloride [Moles/Vol] 95 mmol/L Low 101 - 1 11 mmol/L FT Remisol CO2 [Moles/Vol] 25 mmol/L Normal 21 - 31 mmol/L FT [facility] Creatinine [Mass/Vol] 0.6 mg/dL Normal 0.5 - 1.3 mg/dL FT Remisol GFR/1.73 sq M.predicted among blacks MDRD (S/P/Bld) [Vol rate/Area] mL/min/1.73 m2 Normal >=59mL/min/ 1.73 m2 [facility] [place] Chem S GFR/1.73 sq M.predicted among non-blacks MDRD (S/P/Bld) [Vol rate/Area] mL/min/1.73 m2 Normal >=59mL/min/ 1.73 m2 [facility] [place] Chem S Potassium [Moles/Vol] 4.1 mmol/L Normal 3.5 - 5.3 mmol/L FT Remisol Sodium [Moles/Vol] 131 mmol/L Low 135 - 145 mmol/L FT Remisol Urea nitrogen [Mass/Vol] 7 mg/dL Normal 5 - 21 mg/dL FT [facility] Creatinineon 09-21-2021 Creatinine [Mass/Vol] 0.6 mg/dL Normal 0.5-1.3 [facility] Comment on above: Performed By: #### 2 672776, 9384101, 7634701, 7423437, 1008717, 83048827 ####[facility] [id number] [place] [address] Discharge Instructionson Discharge Instructions [id number]: 127 Normal Jonah [facility] Discharge Note-Nursingon Discharge Note-Nursing ANNE KEMP [...] When: 10/18/2021 03:00 PM EDT Where: [address] [place] [address]- Business (1) Follow Up with KERRI LUGO When: In 0 days Where: [address] [place] [address] [id number] Business (1) Medications What How Much When [...] Twice a day (after meals) Pickup at [address] NEEDED Unchanged cannabidiol By Mouth Every day 09/22 @ 9 AM Unchanged cholecalciferol (Vitamin D 1000 intl units (25 mcg) Tab) 1 Tablets By Mouth Every day 09/22 @ 9 AM Unchanged docusate (Colace 100 mg Cap) 1 Capsules By Mouth 2 times a day as needed for for constipation Pickup at [address] Unchanged hydroxychloroquine (hydroxychloroquine 200 mg Tab) 1 Tablets By Mouth Every day 09/22 @ 9 AM Unchanged lamotrigine (lamotrigine 200 mg Tab) 1 Tablets By Mouth 2 times a day 09/21 @ 9 PM Unchanged magnesium hydroxide (magnesium hydroxide 8% [...] si po q6hr prn pain Pickup at [address] NEEDED Unchanged quetiapine (SEROquel 25 mg Tab) 09/22 @ 9 PM Unchanged Turmeric (turmeric 500 mg oral capsule) 1 Capsules By Mouth Every day 09/22 @ 9 AM Unchanged venlafaxine (venlafaxine 150 mg Cap-ER) 1 Capsules By Mouth Every day 09/22 @ 9 AM Pharmacy Information [facility] [facility] [address], [place] [id number] [phone] Test Results CBC BMP WBC: 13.3 E9/L [...] POSTERIOR STABIL (more content not included)... Normal [facility] HEMATOLOGYOrdered By: SYSTEM SYSTEM on 09-21-2021 Basophils/100 [...] 88.9 fL Normal 80.0 - 100.0 fL [facility] HemeAutoSS Platelet mean volume (Bld) [Entitic vol] 6.9 fL Normal 6.4 - 10.8 fL [facility] HemeAutoSS Platelets (Bld) [#/Vol] 337.0 E9/L Normal 150.0 - 500.0 E9/L [facility] HemeAutoSS RBC (Bld) [#/Vol] 3.9 E12/L Low 4.3 - 5.9 E12/L [facility] HemeAutoSS WBC corrected for nucl RBC Auto (Bld) [#/Vol] 13.3 E9/L High 4.0 - 11.0 E9/L [facility] HemeAutoSS Interdisciplinary Note - Nick e Manageron 09-21-2021 Interdisciplinary Note - Director Of Claims CRM to discuss DC plans with patient. [...] her FWW is present. CRM following. Normal [facility] Comment on above: Result Comment: Elec tronically Signed By: Payton Ordaz\.br\Date and Time Signed: 09/21/21 09:39 EDT Lyteson 09-21-2021 Anion gap [Moles/Vol] 15 mmol/L Normal 6-16 [facility] Comment on above: Performed By: #### 2 970753, 1707054, 9598911, 2119990, 2484325, 73439011 ####[facility] [address] [place] [address] Chloride [Moles/Vol] 95 mmol/L Low 101-111 [facility] Comment on above: Performed By: #### 2 489244, 7014135, 5562559, 7566622, 5199068, 34267358 ####[facility] [address] [place] [address] CO2 [Moles/Vol] 25 mmol/L Normal 21-31 [facility] Comment on above: Performed By: #### 2 666943, 5863811, 3718903, 8177078, 9594407, 67611738 ####[facility] [address] [place] [address] Potassium [Moles/Vol] 4.1 mmol/L Normal 3.5-5.3 [facility] Comment on above: Performed By: #### 2 947300, 5690145, 3935412, 7470564, 1653090, 93638165 ####[facility] [address] [place] [address] Sodium [Moles/Vol] 131 mmol/L Low 135-145 [facility] Comment on above: Performed By: #### 2 625313, 6479323, 6090232, 5456683, 0284548, 61648178 ####[facility] [address] [place] [address] Operative Reporton Operative Report SURGERY DATE: 2021 CLINICAL LIAISON: Lizet Armas, Certified [employer] PREOPERATIVE DIAGNOSIS: Failed left knee medial unicompartmental [...] is prep (more content not included)... Normal [facility] Comment on above: Result Comment: Elec tronically [...] made to ensure accuracy, however, inadvertently computerized certified personal trainer mistakes may be present. Subjective She states [...] Lymph Auto: 7.3 % Low (09/21/21 04:41:00) Woodruff Auto: 11 % (09/21/21 04:41:00) Eos Auto: 0.2 % (09/21/21 04:41:00) Basophil Auto: 0 % (09/21/21 04:41:00) Neutro Absolute: 10.8 E9/L High (09/21/21 04:41:00) Lymph Absolute: 1 E9/L (09/21/21 04:41:00) Woodruff Absolute: 1.5 E9/L High (09/21/21 04:41:00) Eos Absolute: 0 E9/L (09/21/21 04:41:00) Basophil Absol (more content not included)... Normal [facility] Comment on above: Result Comment: Elec tronically Signed By: Ashlyn PETERSON\.br\Date and Time Signed: 09/21/21 09:03 EDT\.br\Electronically Co-Signed By: Brijesh BARRETT MD\.br\Date and Time Co-Signed: 09/21/21 09:52 EDT eGFRon 09-21-2021 GFR/1.73 sq M.predicted among blacks MDRD (S/P/Bld) [Vol rate/Area] mL/min/{1.73_m2} Normal >=59 [facility] Comment on above: Order Comment: Order added by Discern Expert. Result Comment: eGFR is race adjusted. AA=. Performed By: #### 2 550931, 4566054, 7128505, 8108325, 5789414, 77744520 ####[facility] [address] [place] [address] GFR/1.73 sq M.predicted among non-blacks MDRD (S/P/Bld) [Vol rate/Area] mL/min/{1.73_m2} Normal >=59 [facility] Comment on above: Order Comment: Order added by Discern Expert. Result Comment: Cvt Rn josesito kidney disease could be indicated at eGFR's of less than 60 mL/min/1.73m2. Kidney failure is indicated at less than 15 mL/min/1.73m2. Performed By: #### 2 749936, 0509881, 2163978, 6943113, 5733276, 63934260 ####[facility] [address] [place] [address] Auto Diffon 09-20-2021 Basophils/100 WBC (Bld) 0.2 % Normal 0.0-2.0 [facility] Comment on above: Order Comment: Order Added by Discern Expert. Performed By: #### 2 231605, 2311577, 6012112, 40727253, 9189614, 4547023 ####[facility] [address] [place] [address] Basophils/Leukocytes Auto (Bld) [Pure # fraction] 0.0 E9/L Normal 0.0-0.2 [facility] Comment on above: Order Comment: Order Added by Discern Expert. Performed By: #### 2 579158, 2840230, 8866407, 80558614, 6611443, 6539179 ####[facility] [address] [place] [address] Eosinophils/100 WBC (Bld) 0.2 % Normal 0.0-8.0 [facility] Comment on above: Order Comment: Order Added by Discern Expert. Performed By: #### 2 638435, 2677483, 9060513, 55573523, 9326287, 7065602 ####[facility] [address] [place] [address] Eosinophils/Leukocyt es Auto (Bld) [Pure # fraction] 0.0 E9/L Normal 0.0-0.5 [facility] Comment on above: Order Comment: Order Added by Discern Expert. Performed By: #### 2 846170, 8239890, 1191727, 86138796, 9083025, 2442922 ####[facility] [address] [place] [address] Lymphocytes/100 WBC (Bld) 15.6 % Normal 14.0-50.0 [facility] Comment on above: Order Comment: Order Added by Discern Expert. Performed By: #### 2 740957, 8539120, 6460928, 49407978, 4954762, 8451691 ####[address] [place] [address] Lymphocytes/Leukocyt es Auto (Bld) [Pure # fraction] 1.4 E9/L Normal 1.0-4.0 [facility] Comment on above: Order Comment: Order Added by Discern Expert. Performed By: #### 2 219374, 9764768, 2437022, 71966875, 5563484, 8654622 ####[address] [place] [address] Monocytes/100 WBC (Bld) 12.8 % Normal 4.0-14.0 [facility] Comment on above: Order Comment: Order Added by Discern Expert. Performed By: #### 2 141410, 2668832, 5242202, 05358330, 8172011, 2433136 ####[address] [address] Monocytes/Leukocytes Auto (Bld) [Pure # fraction] 1.1 E9/L High 0.2-1.0 [facility] Comment on above: Order Comment: Order Added by Discern Expert. Performed By: #### 2 378386, 2103314, 4337072, 21172995, 7525134, 6443375 ####[address] [place] [address] Neutrophils/100 WBC (Bld) 71.2 % Normal 36.0-75.0 [facility] Comment on above: Order Comment: Order Added by Discern Expert. Performed By: #### 2 568778, 5580726, 5946709, 67124238, 5080759, 0388090 ####[address] [place] [address] Neutrophils/Leukocyt es Auto (Bld) [Pure # fraction] 6.4 E9/L Normal 2.0-7.5 [facility] Comment on above: Order Comment: Order Added by Discern Expert. Performed By: #### 2 980674, 1852854, 8223970, 65847574, 7622328, 9187693 ####[facility] [address] [place] [address] BUNon 09-20-2021 Urea nitrogen [Mass/Vol] 9 mg/dL Normal 5-21 [facility] Comment on above: Performed By: #### 2 945423, 6595110, 0955957, 03431770, 1334423, 4777147 ####[facility] [address] [place] [address] Blood Bank Slipon 09-20-2021 Blood Bank Slip [id number]#1.00CD: 127 Normal [facility] CBC w/ Auto Diffon Erythrocyte distribution width (RBC) [Ratio] 13.5 % Normal 10.9-14.2 [facility] Comment on above: Performed By: #### 2 810673, 1834655, 7564902, 49800904, 4578914, 4902330 ####[facility] [address] [place] [address] Hematocrit (Bld) [Volume fraction] 29.0 % Low 34.0-46.0 [facility] Comment on above: Performed By: #### 2 758307, 1573732, 5700796, 93974029, 0898326, 5272302 ####[facility] [address] [place] [address] Hemoglobin (Bld) [Mass/Vol] 10.1 g/dL Low 12.0-16.0 [facility] Comment on above: Performed By: #### 2 776350, 5482961, 5309818, 26813670, 2577124, 3649944 ####[facility] [address] [place] [address] MCH (RBC) [Entitic mass] 31.3 pg Normal 27.0-34.0 [facility] Comment on above: Performed By: #### 2 109586, 8357319, 8183053, 03997806, 6025323, 1422342 ####[facility] [address] [place] [address] MCHC (RBC) [Mass/Vol] 34.8 g/dL Normal 31.4-36.0 [facility] Comment on above: Performed By: #### 2 150559, 8483631, 4803024, 84428807, 3000597, 9419025 ####[address] MCV (RBC) [Entitic vol] 89.7 fL Normal 80.0-100.0 [facility] Comment on above: Performed By: #### 2 526170, 7998663, 3092216, 24833046, 6258188, 3980646 ####[address] Platelet mean volume (Bld) [Entitic vol] 6.7 fL Normal 6.4-10.8 [facility] Comment on above: Performed By: #### 2 845351, 5772873, 4675056, 13611160, 2192929, 3522892 ####[address] Platelets (Bld) [#/Vol] 294.0 E9/L Normal 150.0-500.0 [facility] Comment on above: Performed By: #### 2 843012, 4228649, 6711236, 11259193, 9356048, 0001985 ####[address] RBC (Bld) [#/Vol] 3.2 E12/L Low 4.3-5.9 [facility] Comment on above: Performed By: #### 2 932573, 9204927, 6886726, 52046295, 7755259, 0876460 ####[address] [address] WBC corrected for nucl RBC Auto (Bld) [#/Vol] 8.9 E9/L Normal 4.0-11.0 [facility] Comment on above: Performed By: #### 2 653180, 2837868, 7428461, 77419933, 5625703, 4657189 ####[facility] [address] [place] [address] CHEMISTRYOrdered By: SYSTEM SYSTEM on 09-20-2021 Anion gap [Moles/Vol] 8 mmol/L Normal 6 - 16 mEq/L [facility] Chloride [Moles/Vol] 106 mmol/L Normal 101 - 1 11 mmol/L [facility] CO2 [Moles/Vol] 28 mmol/L Normal 21 - 31 mmol/L [facility] Remisol Creatinine [Mass/Vol] 0.8 mg/dL Normal 0.5 - 1.3 mg/dL [facility] Remisol GFR/1.73 sq M.predicted among blacks MDRD (S/P/Bld) [Vol rate/Area] mL/min/1.73 m2 Normal >=59mL/min/ 1.73 m2 [facility] Chem S GFR/1.73 sq M.predicted among non-blacks MDRD (S/P/Bld) [Vol rate/Area] mL/min/1.73 m2 Normal >=59mL/min/ 1.73 m2 [facility] Chem S Potassium [Moles/Vol] 4.2 mmol/L Normal 3.5 - 5.3 mmol/L [facility] Sodium [Moles/Vol] 138 mmol/L Normal 135 - 145 mmol/L [facility] Remisol Urea nitrogen [Mass/Vol] 9 mg/dL Normal 5 - 21 mg/dL [facility] Remisol Consent for Anesthesiaon Consent for Anesthesia [id number]#1.00C D:127 Normal [facility] Creatinineon 09-20-2021 Creatinine [Mass/Vol] 0.8 mg/dL Normal 0.5-1.3 [facility] Comment on above: Performed By: #### 2 992724, 6236499, 6894324, 58013784, 6886969, 0137699 ####[facility] [address] [place] [address] HEMATOLOGYOrdered By: SYSTEM SYSTEM on 09-20-2021 Basophils/100 [...] 6.7 fL Normal 6.4 - 10.8 fL [facility] HemeAutoSS Platelets (Bld) [#/Vol] 294.0 E9/L Normal 150.0 - 500.0 E9/L [facility] HemeAutoSS RBC (Bld) [#/Vol] 3.2 E12/L Low 4.3 - 5.9 E12/L [facility] HemeAutoSS WBC corrected for nucl RBC Auto (Bld) [#/Vol] 8.9 E9/L Normal 4.0 - 11.0 E9/L [facility] HemeAutoSS Interdisciplinary Note - Nick e Manageron 09-20-2021 Interdisciplinary Note - Director Of Claims CRM to discuss DC plans with patient. [...] Patient had elevated BP, uncontrolled pain Normal [facility] Comment on above: Result Comment: Elec tronically [...] inpatient OT services at this time. Normal [facility] IntraOperative Documentson 0 09-20-2021 IntraOperative Documents [id number]#1.00C D:127 Normal [facility] IntraOperative Documents [id number]#1.00C D:127 Normal [facility] Lyteson 09-20-2021 Anion gap [Moles/Vol] 8 mmol/L Normal 6-16 [facility] Comment on above: Performed By: #### 2 662366, 9259347, 0799961, 83422334, 2519934, 9852833 ####[facility] [address] [place] [address] Chloride [Moles/Vol] 106 mmol/L Normal 101-111 [facility] Comment on above: Performed By: #### 2 295897, 0412673, 8693900, 95379509, 4226019, 1668903 ####[address] [address] CO2 [Moles/Vol] 28 mmol/L Normal 21-31 [facility] Comment on above: Performed By: #### 2 083077, 8438637, 1360710, 29150755, 5944460, 2643489 ####[address] [address] Potassium [Moles/Vol] 4.2 mmol/L Normal 3.5-5.3 [facility] Comment on above: Performed By: #### 2 231110, 9852304, 0171366, 45658302, 5599007, 4156273 ####[address] [place] [address] Sodium [Moles/Vol] 138 mmol/L Normal 135-145 [facility] Comment on above: Performed By: #### 2 540069, 9378951, 7948380, 10656168, 2372811, 5740902 ####[address] [address] Operative Reporton 2 Operative Report SURGERY DATE: [...] Luis M Delgado CRNA ls Dictated: 09/19/2021 [id number] Transcribed: 09/19/2021 [facility] Comment on above: Result Comment: Elec tronically Signed By: Luis M Delgado CRNA\.br\Date and Time Signed: 09/20/21 08:18 EDT Preoperative Documentson Preoperative Documents [id number]#1.00C D:127 Normal [facility] Preoperative Documents [id number]#1.00C D:127 Normal [facility] eGFRon 09-20-2021 GFR/1.73 sq M.predicted among blacks MDRD (S/P/Bld) [Vol rate/Area] mL/min/{1.73_m2} Normal >=59 [facility] Comment on above: Order Comment: Order added by Discern Expert. Result Comment: eGFR is race adjusted. AA=. Performed By: #### 2 901165, 3001833, 0369524, 69049625, 6330659, 4785306 ####[facility] [address] [place] [address] GFR/1.73 sq M.predicted among non-blacks MDRD (S/P/Bld) [Vol rate/Area] mL/min/{1.73_m2} Normal >=59 [facility] Comment on above: Order Comment: Order added by Discern Expert. Result Comment: Cvt Rn josesito kidney disease could be indicated at eGFR's of less than 60 mL/min/1.73m2. Kidney failure is indicated at less than 15 mL/min/1.73m2. Performed By: #### 2 635167, 9288153, 8716975, 34445716, 8767555, 6424123 ####[address] [place] [address] ABO/Rhon 09-19-2021 ABO/Rh Positive Invalid Interpretation Code [facility] Comment on above: Performed By: #### 1 0294240, 33774475, 56260540, 3874166 ####[address] [place] [address] ABO/Rh History Checkon 09-19 ABO/Rh History Check Verified Hx Blood Type Normal [facility] Comment on above: Performed By: #### 1 8891717, 34635271, 40897596, 4896828 ####[address] [address] ABSCon 09-19-2021 ABSC Gel Interp Negative Normal [facility] Comment on above: Performed By: #### 1 0600503, 05084367, 15809755, 9851995 ####[address] [address] BLOOD BANKOrdered By: Angelica ellis on 09-19-2021 ABO/Rh Interp Positive Invalid Interpretation Code [facility] BB Subsection ABSC Gel Interp Negative (09/19/21 9:00 AM) Normal [facility] BB Subsection Blood Bank ID#on 09-19-2021 BBID# [id number] Invalid Interpretation Code [facility] Comment on above: Performed By: #### 1 5486267, 69327047, 00623228, 5843578 ####[address] [place] [address] Coding Summary.on 09-19-2021 Coding Summary. CD:[id number] Gh0b Ww+PGhlYWQ+HE3JJFXwW67dm LLllP8AI9vZGD3PXABVASHIT Q8CCB3leIY4EOooB8GwvpHp JwigvRNhBU31YXq7WWP4sIax JCkrzO6vySIzL8m4QcNqHY23 bA08MJzvDBZfHkD5IpBnhbsw bWFy V3sqEfObpOHlDpn+PHRhYmxl IHdpZHRoPScxMDAlJyBzdHls AC8pFk6tNRYzMNNceFthxIEq OiBj a4xeXLRvQAeiBC7wlXtwC7Tf bNN2JRKbr9t2Ig87sUV+PHRk ZRB4aAqrKUnfk728VxLbx7rb IDM3 pOBfMEdnWLC7H56rx8T0UAGb QHThGXH5eXQ5nN8vqEhsnkrq S8JnbBJbFsK3JDU7lDSfoF7f bGln borpvM1pLsn+K23LLY7SENYT YR8TDxx7L8JnBcaiaSW+PC90 NLDvLQ64bCNgqSDnr2lncWg6 JzEw QYOjJDF6eTzzYYttp9XyTJNj V44tyRCyi0I1MHWjlRccuDXm IeNvxUP4zA8eOEqybbyhb9mu dzsn Ifmag1ucqt93lG16O81bFLdg AMJaCTM5HVXgYSJucAmjdk0c eH8jHt3+GRtub8uvh9hhbXs7 IjIw ORUuwyLthVooKAA5u4SwOl98 K7RnqJjbz3MlTpc6bu12eMPi c8G7nCH8CExfBPFftU8oFExj ZnQ6 UASuXfFpbA28mBMaXMyhLi6n iDwhiDvhMI7jTPBfczliLPQl cT0bQRMqpUVpiLvwAT6gSDIn bjtm w079HfCcMHD2DWDuxSHlE3Jz vA9oFmVkJJFtZMVcW4FjiKFv TFusK832YTqcGhL8GXRaywMb Y2Fs CIVpqGfnAeR5g4Y8Wh9Pk0Be ytmrOWC4LIkqBBK2HiYuHxDy VhB5X7FuTxv1CVKfkEksSZ6h J3Bh DCAexkbpdrjrxYZ9ARDdXWWs dF31tBQfTZheFw7rx7W6e649 MWBtLXDsaW59Ur9aoAjtMIEm dCBU xA2dnmmpu1nmnyltLhWvFUCx DEw8RYr7YFTaqIhcWwIoNFP1 YgC9BGW9eTIlhG3axCzuduqx dG9w Oyc+U69uqA6yQZB0PHG6vrvb RIHyoiGhCZ04ZM16E8KpBjnx dGFibGU+ZUJtbsZemQflJJ9q YmFj l1cfw6YrZNxqC1BlREDuAEqr Umn5AHMlYOK1pMS1uA2uCMXv YHumj4Y6jYB6Z8DhfiJcvv4v b2xs GHBtEOplG67lfNGto2K6MHUc mVW8GMCccUxxIcVrsX40Ftk+ XLRbrNkng1CoQsbqn2dni7zk dGg9 LfIjDNIuudJysQyrPKJ7e3Kd Nt54D83fNOvpLGWlCDQpUUJg QZXowScjbi7ctY1cUa3+PGNv bCB3 zBZ2jP2eYNRaVxW4HRjiJ408 VmJkgHVrMskld2pjy4xjfEl4 QxJgSQIziwHghYctOWE7c4Jc Lz48 L94oFXcdEHEnUCQcXGEdWGKr yUygut1woX2gGx8+QH3xw4he kx52bR36tUH+SEWxRWJ7tRhx PSdw OUBwrK9dHLhmJpI5HPUcGtIa fQ13cIYvXApmBs1hjOoonFsy JF8hAINoagcps047TuSay3lw IDEw oFQwSNyxWZA8O57ii7K1TZPe WAVbMLU4eIF5cQ2rkVyjwgmq bGVmdDsgdmVydGljYWwtYWxp Z246 IHRvcDsnPlBhdGllbnQgTmFt DBe3Y1JjUnj5YWGokBgaUH2f yDXlUSzqWi5hhZwxxGirBS1n NTBp fpghp948UrAdw2gpIKJfpVZv RMvrDUJ5E97re8B1KJAsPGUp ATT4iKA4tV0caCcanjreiUPc dDsg stAmfVxiCTslODcbR593FUUz xMdwMqYvumPgKQDmtKR9LC86 OD28aQMsf4Y8sOV5W9SoYDFp bmct rdhvlBI9DTClWXNfuB03Nn3n dLuiJy2nCVMmESI6HMQzqFYr R5UizS9vKyMkWAXaSPZrR7Nn eHQt OUbtW617MYdmQaI9ZBOotdOm E6QmHQJlcUyyGpF7l8N5Nl3E R9Z7VR89GX83aXPiv6M9fZH3 J3Bh LFZiejubcyjzcAD9CRVgHIXf tS32Kz0dnWkaKx2dXNQvQVM7 TVFgrQZmR0OkdU4mVhSlKGNe MDAw I8TlgNZiERxsA074TUtnVgA2 ZPFuzjCyW4ZlJIUrwDzfCsT6 w9L6Uk4OVCe2BX84UR13cYIc c3R5 qJL0N9VkTREnpvlsrjpfqVP6 HJFtFNObnS88Ku0xzCemXu8z CFLyNDP5SAMgkRXtE8XexW5r OiAj XAKuBLXnR7GjsUIvJEnaE498 KHgrBjY3QOOccaJgZ2YnIZEg iJepLaW2b0B6Ox5WWXNrRM80 IFR5 kGJ5WI23OQ82X2CxKcpgbCHw bGU+PHRhYmxlIHdpZHRoPScx IGTnXmZxkYpeUM4hYd3uGFMn LWNv gWawiCRqEnVtx2duOUArPFqi IH2kyEfcH9YotSE9EWUku3z1 Di17B13gX3EidII+PGNvbCB3 aWR0 gQ0tCiDkQbY5PTnfR420NyEu nGMlDppfi9gky6qtxEg3BjY8 QFOhgrSmfWtzZPT2a2YrUt21 Y29s IHdpZHRoPSIxNSUiIHZhbGln oi9ogZ0xKy5+TAJnlUA6xTN0 vJ7aDxGuDrQ2TShoG251YrAm cCIv Wytsz9pxs3qjpMi5EjZwAFWm qfKdlVxaHDS1p7IaRv40Y0Pz rXacj6RwQwc6ev70hZQlr3Y5 bGU9 Y9YkNITuingsnIIqzZkpPU7k JNLujabkZSKbbR8pWKHfQ6l8 KsTpKuT8YDviY8MvfxL0JNVb cHQg UXtqQBX4I39qg7Q9JQZtHAOj QGD6aVE1uA9xhZeixrfkfAOk eCcdbrCtcCkdKNnjNGmcZ915 IHRv wBmyAWRgoN8xDGVjkRCfuBai DW1kBXVlvhizUg5GVBkJQBrt By9NWSyjxLJ+ZZSpXPJ2oYzt PSdw HFAilL1yQJTiW5x9IlHbQcL6 UDgrT5GgHGMrqyghCb16fR0l JkDfZnZ8KVxqW8ZjenE5VQRx cHQg JMdvOWO0P59li7U1VLJiUQYr WKJ0tBO2nS9mrOnoueipzTBd cLqosfTkdFnrXGyqKNtfG388 IHRv uMjjSzTkCmD9BgY7UHX2E3On Puy0FARaqDohCS2vdLZwFRgm Hh4huVdczRrmCF4aOJBtbhnk YWRk rZ0lPMNkvLDlkEvlVO2yGNPu mbwku381CkIlLAY9PLEklAAg T5XmiC3uHdClCKYrVWBmS7Gr eHQt FZlkN969JOlcYkD4OFPebdRw Y1XaLMMfgGnmVoM5a6P1Px46 NiBZZWFyczwvdGQ+PHRkIHN0 eWxl UDiqFNFdkK5lMEJlJ0d1AdEt VbB4UUalC2TzUNGcjiyyCs64 hK2jTaRrTqZ3AOosV1WxoiK5 IDEw qKAcACicNNY8G64eq4S1ISXq NWGxOQB8aSZ3iH1rjYwzdoyb bGVmdDsgdmVydGljYWwtYWxp Z246 IHRvcDsnPkZlbWFsZTwvdGQ+ DJYyKFX8dZusNIyuEEYtiI1b NAWxR7d8ZyNeRgU7EFzaC8Vr ZGRp uywuPk86vA9nZmRmRiD0GHfd X7JqgpV4WTBcyOVeVYegXBL5 Q46hp1W9RLQjVZZsJOP0yRR6 dC1h bGlnbjogbGVmdDsgdmVydGlj SMebNKwiB892LZMxtBkcWa89 xJNplJcbddA4J8OqDrnuyBA+ PC90 YXWbFZ59zLLkeXNbt6jqySo0 OjQoSJBzPMU6pDziNUoyy8Vi PXEiL04qpZTqc6U3DKOzdDij cHNl PwQhwVB1kJ8fCJvhreadh1ys pasuBcjfy8inlt35fD49O57p IHdpZHRoPSIzMCUiIHZhbGln bj0i dY9vFu8+MEFazUW4qCM4aM5d ClKpXxY7IEcgK517HwIzjOUz Zdhdn1jwq5mjlAy0TyClLCDw dmFs uUuuPNU1d8UlKd22K49vFAus CZQvSAIbHCOlDHTtsBolab6q mP5mAm2+MW7gh2tpka08pS27 dHI+ JERyGKR5eIpbKDowQKGbhU1a OFndNeV3CQRzEmDgyL39zVDr UBjcSa1vcMadrRqiPO3nBYCb bjtm u863TaGjj7tcFFJniPMuBZsf FTZ5D73nb7R7FQWqQZMnLDU7 oRV8gH7kiOussjfenELieVus dmVy sYgxINeiWQojX080IHZwuDux HuFfvWRnC4flcyUSLB3lMemv dGQ+CXIaFVV7sKmyCGnzKVNy aW5n AGDgE9w6YxStWpT8HStbO1Fj mkX7PYVerWHhSQFllIGGzN0u ostje4npagezCkVeDPDgQGq3 ZXh0 THUfyLdkDjOvKCU8YdX7HYI3 uBFcfM4mdUfdqtrihL2lMsz+ RklOOjwvdGQ+GJEhRPR4bVaj PSdw KFKfuP5fRNRwK0z8IkKyZvU8 UPjhF8IpklN0RIPvkFKfFVEt qKHMhX0ijjvay0owlckeVnSu MDAw HOj4VKa6WGElxZpwXfWiREW0 VuM8CHO2iUYmjL7zqFqjgjuw bN8vWlr+TVJOOjwvdGQ+PHRk IHN0 jMagILfdVVRivA8oDYVuJ3k8 HxIuSzN1BYurV2KokkJ4ZQIv kHLaHJZxfFQLxZ9qksywh5zn cjog WrKpDEWkMOu6VKo1NKFzjSka LuSjAHS9IuT3PXA9cSXajZ0c dXzqybqcjA8tKvf+SUA1VMZ4 PC90 EB00Y4YtJavuaBMcuSD+PHRh YmxlIHdpZHRoPScxMDAlJyBz fDktGH7rJe9aNPShGKPwbIuh cHNl OiBj (more content not included)... [facility] Consent for Treatmenton 09-08 Consent for Treatment [id number]: 127 [facility] H&P Updateon 09-19-2021 H&P Update [id number]#[id number]: 127 [facility] Interdisciplinary Note - Nick e Manageron 09-19-2021 Interdisciplinary Note - Director Of Claims CRM to discuss DC plans with patient. [...] here. CRM called and left message on [employer] line as well as sent email to [employer] for the script for the walker to be sent to [facility]. Plan is for DC 4.13.22 with [facility] program. CRM following [facility] Comment on above: Result Comment: Elec tronically Signed By: Payton Ordaz\.br\Date and Time Signed: 09/19/21 15:25 EDT Main OR PACU I Recordon 09-08 Main OR PACU I Record PACU Phase I Document Type FT Summary Primary Physician: Cas Severino DO Finalized Date/Time: 09/19/21 14:02:37 Pt. Name: ANNE KEMP/Sex: 1955 Female Med Rec #: [id number] Physician: Cas Severino DO Financial #: [id number] Pt. Type: O Room/Bed: [facility]/ Admit/Disch: 09/19/21 08:30:31 - Institution: Case Times [...] Signed By: Jeni Norwood RN 09/19/21 14:02 Normal [facility] Main OR Preoperative Recordo n 09-19-2021 Main OR Preoperative Record PreOp Document Type FT Summary Primary Physician: Cas Severino DO A Finalized Date/Time: 09/19/21 12:11:01 Pt. Name: ANNE KEMP.O.B./Sex: 1955 Female Med Rec #: [id number] Physician: Cas Severino DO Financial #: [id number] Pt. Type: A Room/Bed: [facility] Admit/Disch: 09/19/21 08:30:31 - Institution: Case Times [...] By: Gila Armas RN 09/19/21 12:11 Normal [facility] Message from Medicareon 09-08 Message from Medicare [id number]: 127 [facility] Monitor Recordon 09-19-2021 Monitor Record [id number]#[id number] :127 [facility] Patient Education - [employer] 0 09-19-2021 [...] Keep items that you use often in nwby-le-xtmln places. Lower the shelves around your home [...] the way. ? Do not use floor ethiopian or wax that makes floors slippery. If [...] Control and Prevention, [place]: https://cdc.gov ? National [place] on Aging: https://cn0ljsi.bryson.nih. gov Contact a doctor if: ? You are afraid of falling at home. ? You feel weak, drowsy, or dizzy at home. ? You fall at home. Summary ? There are many simple things that you can do to make yo (more content not included)... Normal [facility] Progress Note-Physicianon Progress Note-Physician Patient: ANNE KEMP [...] BIDPC, # 60 tab(s), Refills(s) 0, Pharmacy: [facility], 170, cm, 09/18/21 6:21:00 EDT, Height/Length Dosing, 73, kg, 09/18/21 6:21:00 EDT, Weight Dosing Colace 100 mg Cap: 100 mg = 1 cap(s), Oral, BID, PRN for constipation, # 40 cap(s), Refills(s) 0, Pharmacy: [facility], 170, cm, 09/18/21 6:21:00 EDT, Height/Length Dosing, 73, kg, 09/18/21 6:21:00 EDT, Weight Dosing oxyCODONE 5 mg Tab: 5 mg = 1 tab(s), Oral, q6hr, 1-2 po q4-6 hrs prn pain Dx: M17.12, Z96.652 Duration: 7days Disregard si po q6hr prn pain, # 40 tab(s), Refills(s) 0, Pharmacy: [facility] [facility], 170, cm, 09/18/21 6:21:00 EDT, Height/Length Dosing, [...] Oral, Daily, Refills( (more content not included)... 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 Postoperative Diagnosis: same. Performed by: erick. Veterans Employment Representative: pawel. Specimens Removed: hardware, bone, soft tissue. Prosthesis: Jackson. . Estimated Blood Loss: 0 ml. Complications: None. Anesthesia type: Spinal, add canal block. [facility] Comment on above: Result Comment: Elec [...] BIDPC, # 60 tab(s), Refills(s) 0, Pharmacy: [address], 170, cm, 09/18/21 6:21:00 EDT, Height/Length Dosing, 73, kg, 09/18/21 6:21:00 EDT, Weight Dosing Colace 100 mg Cap: 100 mg = 1 cap(s), Oral, BID, PRN for constipation, # 40 cap(s), Refills(s) 0, Pharmacy: [facility], 170, cm, 09/18/21 6:21:00 EDT, Height/Length Dosing, 73, kg, 09/18/21 6:21:00 EDT, Weight Dosing oxyCODONE 5 mg Tab: 5 mg = 1 tab(s), Oral, q6hr, 1-2 po q4-6 hrs prn pain Dx: M17.12, Z96.652 Duration: 7days Disregard si po q6hr prn pain, # 40 tab(s), Refills(s) 0, Pharmacy: [facility], 170, cm, 09/18/21 6:21:00 EDT, Height/Length [...] Oral, BID, (more content not included)... Normal [facility] Comment on above: Result Comment: Elec tronically Signed By: Luis M Delgado CRNA\Date and Time Signed: 09/19/21 12:13 EDT UA With Cult Reflexon 2021 Bacteria LM Ql (Urine sed) TRACE Normal Trace [facility] Comment on above: Performed By: #### 1 [id number] #### [facility] [address] [place] [address] Bilirubin Ql (U) Negative Normal Negative [facility] Comment on above: Performed By: #### 1 [id number] #### [facility] [address] [place] [address] Clarity (U) CLEAR Normal Clear [facility] Comment on above: Performed By: #### 1 [id number] #### [facility] [address] [place] [address] Color (U) STRAW Abnormal Yellow [facility] Comment on above: Performed By: #### 1 [id number] #### [facility] [address] [place] [address] Crystals LM Ql (Urine sed) Present Normal [facility] Comment on above: Performed By: #### 1 [id number] #### [facility] [address] [place] [address] Epithelial cells.squamous LM.HPF (Urine sed) [#/Area] 0-2 Normal 0-2 [facility] Comment on above: Performed By: #### 1 [id number] #### [facility] [address] [place] [address] Glucose Test strip (U) [Mass/Vol] Negative Normal Negative [facility] Comment on above: Performed By: #### 1 [id number] #### [facility] [address] [place] [address] Hemoglobin Ql (U) Negative Normal Negative [facility] Comment on above: Performed By: #### 1 [id number] #### [facility] [address] [place] [address] Ketones (U) [Mass/Vol] Negative Normal Negative [facility] Comment on above: Performed By: #### 1 [id number] #### [facility] [address] [place] [address]plasma/Lithi um.RBC (Bld) [Mass ratio] 0-3 Normal 0-3 [facility] Comment on above: Performed By: #### 1 [id number] #### [facility] [address] [place] [address] Nitrite Ql (U) Negative Normal Negative [facility] Comment on above: Performed By: #### 1 [id number] #### [facility] [address] [place] [address] pH (U) 6.0 [pH] Invalid Interpretation Code 5.0-9.0 [facility] Comment on above: Performed By: #### 1 [id number] #### [facility] [address] [place] [address] Protein (U) [Mass/Vol] Negative Normal Negative [facility] Comment on above: Performed By: #### 1 [id number] #### [facility] [address] [place] [address] Specific gravity (U) [Rel density] 1.015 Invalid Interpretation Code 1.005-1.030 [facility] Comment on above: Performed By: #### 1 [id number] #### [facility] [address] [place] [address] Type of Urine collection method Martin Normal [facility] Comment on above: Performed By: #### 1 [id number] #### [facility] [address] [place] [address] Urobilinogen Qn (U) 0.2 {Becca'U}/dL Normal 0.0-1.0 [facility] Comment on above: Performed By: #### 1 [id number] #### [facility] [address] [place] [address] WBC Auto Ql (U) Negative Normal Negative [facility] Comment on above: Performed By: #### 1 [id number] #### [facility] [address] [place] [address] WBC LM.HPF (Urine sed) [#/Area] 0-5 Normal 0-5 [facility] Comment on above: Performed By: #### 1 [id number] #### [facility] [address] [place] [address] URINALYSISOrdered By: Víctor starks on 09-19-2021 Bacteria [...] AM) Normal Negative [facility] UA Auto SS [address].plasma/Lithi um.RBC (Bld) [Mass ratio] 0-3 /HPF Normal [...] AM) Invalid Interpretation Code 1.005 - 1.030 [facility] UA Auto SS UA Spec Desc Martin (09/19/21 11:50 AM) Normal [facility] UA Auto SS Urobilinogen Qn (U) 0.5073513 {Becca'U}/dL Normal 0.0 - 1.0 EU/dL [facility] UA Auto SS WBC Auto Ql (U) Negative (09/19/21 11:50 AM) Normal Negative [facility] UA Auto SS WBC LM.HPF (Urine sed) [#/Area] 0-5 /HPF Normal 0-5/HPF [facility] UA Auto SS XR [...] M.D. Transcribed by: KAREN Technologist: NICOLLE Normal [facility] Consent for Procedure/Surger yon 09-18-2021 Consent for Procedure/Surgery [id number] :127 Normal [facility] XR Chest 2 Viewson 2 XR Chest [...] (Electronic Signature): 09/16/2021 10:51 am Signed by: Conrado Nelson MD, V. Transcribed by: KAREN Technologist: FLORA Normal [facility] ABO/Rh Retypeon 09-15-2021 ABO/Rh Retype Interp Positive Invalid Interpretation Code [facility] Comment on above: Performed By: #### 1 [id number] ####[facility] [address] [place] [address] BLOOD BANKOrdered By: Terri Escobar on 09-15-2021 ABO/Rh Retype Interp Positive Invalid Interpretation Code [facility] BB Subsection BUNon 09-15-2021 Urea nitrogen [Mass/Vol] 15 mg/dL Normal 5-21 [facility] Comment on above: Performed By: #### 2 992314, 0906146, 85663636, 4767187, 2513120, 9388654 #### [facility] [address] [place] [address] CBC w/Indiceson 09-15-2021 Erythrocyte distribution width (RBC) [Ratio] 13.6 % Normal 10.9-14.2 [facility] Comment on above: Performed By: #### 2 429036, 6650362, 44504141, 1366705, 0545356, 6711286 #### [facility] [address] [place] [address] Hematocrit (Bld) [Volume fraction] 34.0 % Normal 34.0-46.0 [facility] Comment on above: Performed By: #### 2 823935, 1262572, 95157237, 5195807, 9714607, 3532844 #### [facility] [address] [place] [address] Hemoglobin (Bld) [Mass/Vol] 11.9 g/dL Low 12.0-16.0 [facility] Comment on above: Performed By: #### 2 908567, 2337533, 12050595, 9088026, 5066809, 1418804 #### [facility] [address] [place] [address] MCH (RBC) [Entitic mass] 31.5 pg Normal 27.0-34.0 [facility] Comment on above: Performed By: #### 2 497281, 1262292, 50744275, 8869507, 7646602, 2887905 #### [facility] [address] [place] [address] MCHC (RBC) [Mass/Vol] 35.0 g/dL Normal 31.4-36.0 [facility] Comment on above: Performed By: #### 2 830987, 6045991, 56030329, 7864478, 1986427, 9665243 #### [facility] [address] [place] [address] MCV (RBC) [Entitic vol] 89.9 fL Normal 80.0-100.0 [facility] Comment on above: Performed By: #### 2 615072, 2796159, 51753096, 3693606, 2388826, 5769645 #### [facility] [address] [place] [address] Platelet mean volume (Bld) [Entitic vol] 6.5 fL Normal 6.4-10.8 [facility] Comment on above: Performed By: #### 2 114548, 7268862, 54044321, 8308852, 2001378, 1091204 #### [facility] [address] [place] [address] Platelets (Bld) [#/Vol] 343.0 E9/L Normal 150.0-500.0 [facility] Comment on above: Performed By: #### 2 045909, 7717907, 76746579, 8312707, 6922254, 5706734 #### [facility] [address] [place] [address] RBC (Bld) [#/Vol] 3.8 E12/L Low 4.3-5.9 [facility] Comment on above: Performed By: #### 2 248925, 9263490, 49358080, 2812955, 8547366, 2234036 #### [facility] [address] [place] [address] WBC corrected for nucl RBC Auto (Bld) [#/Vol] 4.8 E9/L Normal 4.0-11.0 [facility] Comment on above: Performed By: #### 2 453284, 8817376, 95377878, 5168430, 7636341, 8321105 #### [facility] [address] [place] [address] CHEMISTRYOrdered By: SYSTEM SYSTEM on 09-15-2021 Anion gap [Moles/Vol] 11 mmol/L Normal 6 - 16 mEq/L [facility] Chloride [Moles/Vol] 103 mmol/L Normal 101 - 1 11 mmol/L [facility] CO2 [Moles/Vol] 25 mmol/L Normal 21 - 31 mmol/L [facility] Remisol Creatinine [Mass/Vol] 0.8 mg/dL Normal 0.5 - 1.3 mg/dL [facility] Remisol GFR/1.73 sq M.predicted among blacks MDRD (S/P/Bld) [Vol rate/Area] mL/min/1.73 m2 Normal >=59mL/min/ 1.73 m2 [facility] Chem S GFR/1.73 sq M.predicted among non-blacks MDRD (S/P/Bld) [Vol rate/Area] mL/min/1.73 m2 Normal >=59mL/min/ 1.73 m2 [facility] Chem S Glucose [Mass/Vol] 84 mg/dL Normal 55 - 199 mg/dL [facility] Remisol Potassium [Moles/Vol] 4.1 mmol/L Normal 3.5 - 5.3 mmol/L [facility] Sodium [Moles/Vol] 135 mmol/L Normal 135 - 145 mmol/L [facility] Remisol Urea nitrogen [Mass/Vol] 15 mg/dL Normal 5 - 21 mg/dL [facility] Remisol Consent for Treatmenton Consent for Treatment [id number]: 127 Normal [facility] Creatinineon 09-15-2021 Creatinine [Mass/Vol] 0.8 mg/dL Normal 0.5-1.3 [facility] Comment on above: Performed By: #### 2 340674, 2989337, 00975362, 3659188, 0794321, 2155852 ####[facility] [address] [place] [address] Glucoseon 09-15-2021 Glucose [Mass/Vol] 84 mg/dL Normal 55-199 [facility] Comment on above: Performed By: #### 2 536425, 3082098, 23573167, 8435208, 4240938, 7603161 #### [facility] [address] [place] [address] HEMATOLOGYOrdered By: Terri Escobar on 09-15-2021 Erythrocyte distribution width (RBC) [Ratio] 13.6 % Normal 10.9 - 14.2 % [facility] HemeAutoSS Hematocrit (Bld) [Volume fraction] 34.0 % Normal 34.0 - 46.0 % [facility] HemeAutoSS Hemoglobin (Bld) [Mass/Vol] 11.9 g/dL Low 12.0 - 16.0 gm/dL [facility] HemeAutoSS MCH (RBC) [Entitic mass] 31.5 pg Normal 27.0 - 34.0 pg [facility] HemeAutoSS MCHC (RBC) [Mass/Vol] 35.0 g/dL Normal 31.4 - 36.0 gm/dL [facility] HemeAutoSS MCV (RBC) [Entitic vol] 89.9 fL Normal 80.0 - 100.0 fL [facility] HemeAutoSS Platelet mean volume (Bld) [Entitic vol] 6.5 fL Normal 6.4 - 10.8 fL [facility] HemeAutoSS Platelets (Bld) [#/Vol] 343.0 E9/L Normal 150.0 - 500.0 E9/L [facility] HemeAutoSS RBC (Bld) [#/Vol] 3.8 E12/L Low 4.3 - 5.9 E12/L [facility] HemeAutoSS WBC corrected for nucl RBC Auto (Bld) [#/Vol] 4.8 E9/L Normal 4.0 - 11.0 E9/L [facility] HemeAutoSS Lyteson 09-15-2021 Anion gap [Moles/Vol] 11 mmol/L Normal 6-16 [facility] Comment on above: Performed By: #### 2 289845, 3815705, 36735502, 6133782, 3517406, 2607300 ####[facility] [address] [place] [address] Chloride [Moles/Vol] 103 mmol/L Normal 101-111 [facility] Comment on above: Performed By: #### 2 769388, 0692155, 46862705, 5422272, 3623671, 5815115 ####[facility] [address] [place] [address] CO2 [Moles/Vol] 25 mmol/L Normal 21-31 [facility] Comment on above: Performed By: #### 2 592070, 2164991, 70827666, 7477853, 9988616, 7943502 ####[facility] [address] [place] [address] Potassium [Moles/Vol] 4.1 mmol/L Normal 3.5-5.3 [facility] Comment on above: Performed By: #### 2 324118, 1327059, 65402266, 0739294, 6879400, 9035202 ####[facility] [address] [place] [address] Sodium [Moles/Vol] 135 mmol/L Normal 135-145 [facility] Comment on above: Performed By: #### 2 558386, 7434250, 08607454, 2921103, 9332546, 3065677 ####[facility] [address] [place] [address] UA With Cult Reflexon 2021 Bacteria LM Ql (Urine sed) TRACE Normal Trace [facility] Comment on above: Performed By: #### 1 3426404 ####[facility] [address] [place] [address] Bilirubin Ql (U) Negative Normal Negative [facility] Comment on above: Performed By: #### 1 3573722 ####[facility] [address] [place] [address] Clarity (U) CLEAR Normal Clear [facility] Comment on above: Performed By: #### 1 0913436 ####[facility] [address] [place] [address] Color (U) YELLOW Normal Yellow [facility] Comment on above: Performed By: #### 1 5655602 ####[facility] [address] [facility] [place] [address] Crystals LM Ql (Urine sed) Present Normal [facility] Comment on above: Performed By: #### 1 3897782 ####[facility] [address] [place] [address] Epithelial cells.squamous LM.HPF (Urine sed) [#/Area] 0-2 Normal 0-2 [facility] Comment on above: Performed By: #### 1 5835028 ####[facility] [address] [place] [address] Glucose Test strip (U) [Mass/Vol] Negative Normal Negative [facility] Comment on above: Performed By: #### 1 3974683 ####[facility] [address] [facility] [place] [address] Hemoglobin Ql (U) Negative Normal Negative [facility] Comment on above: Performed By: #### 1 8425726 ####[facility] [address] [facility] [place] [address] Ketones (U) [Mass/Vol] Negative Normal Negative [facility] Comment on above: Performed By: #### 1 0335934 ####[facility] [address] [place] [address]plasma/Lithi um.RBC (Bld) [Mass ratio] 0-3 Normal 0-3 [facility] Comment on above: Performed By: #### 1 5426001 ####[facility] [address] [facility] [place] [address] Nitrite Ql (U) Negative Normal Negative [facility] Comment on above: Performed By: #### 1 6337661 ####[facility] [address] [place] [address] pH (U) 6.5 [pH] Invalid Interpretation Code 5.0-9.0 [facility] Comment on above: Performed By: #### 1 2280040 ####[place] [address]24857 Protein (U) [Mass/Vol] Negative Normal Negative [facility] Comment on above: Performed By: #### 1 0046289 ####[place] 4424857 Specific gravity (U) [Rel density] <=1.005 Invalid Interpretation Code 1.005-1.030 [facility] Comment on above: Performed By: #### 1 1282793 ####[place] 4424857 Type of Urine collection method Clean Catch Normal [facility] Comment on above: Performed By: #### 1 1631568 ####[place] 4424857 Urobilinogen Qn (U) 0.2 {Becca'U}/dL Normal 0.0-1.0 [facility] Comment on above: Performed By: #### 1 3162689 ####[place] 4424857 WBC Auto Ql (U) Negative Normal Negative [facility] Comment on above: Performed By: #### 1 4865463 ####[place] 4424857 WBC LM.HPF (Urine sed) [#/Area] 0-5 Normal 0-5 [facility] Comment on above: Performed By: #### 1 9188147 ####[place] 4424857 URINALYSISOrdered By: Colton Minor on 09-15-2021 Bacteria [...] PM) Normal Negative [facility] UA Auto SS [address].plasma/Lithi um.RBC (Bld) [Mass ratio] 0-3 /HPF Normal [...] PM) Invalid Interpretation Code 1.005 - 1.030 [facility] UA Auto SS UA Spec Desc Clean Catch (09/15/21 5:32 PM) Normal [facility] UA Auto SS Urobilinogen Qn (U) 0.6823560 {Becca'U}/dL Normal 0.0 - 1.0 EU/dL [facility] UA Auto SS WBC Auto Ql (U) Negative (09/15/21 5:32 PM) Normal Negative [facility] UA Auto SS WBC LM.HPF (Urine sed) [#/Area] 0-5 /HPF Normal 0-5/HPF [facility] UA Auto SS eGFRon 09-15-2021 GFR/1.73 sq M.predicted among blacks MDRD (S/P/Bld) [Vol rate/Area] mL/min/{1.73_m2} Normal >=59 [facility] Comment on above: Order Comment: Order added by Discern Expert. Result Comment: eGFR is race adjusted. AA=. Performed By: #### 2 991849, 6304469, 69769138, 8623634, 1079237, 6705838 #### [facility] [address] [place] [address] GFR/1.73 sq M.predicted among non-blacks MDRD (S/P/Bld) [Vol rate/Area] mL/min/{1.73_m2} Normal >=59 [facility] Comment on above: Order Comment: Order added by Discern Expert. Result Comment: Cvt Rn josesito kidney disease could be indicated at eGFR's of less than 60 mL/min/1.73m2. Kidney failure is indicated at less than 15 mL/min/1.73m2. Performed By: #### 2 366189, 4963692, 22732173, 9322067, 1333503, 7754931 #### [facility] [address] [place] [address] COVID-19 (MC)on 09-13-2021 SARS-CoV-2 (COVID-19) RNA RANGEL+probe Ql (Resp) Not detected Normal Not Detected [facility] Comment on above: Result Comment: This test result should be correlated with clinical presentations and medical history by a healthcare provider to determine its clinical significance. This assay was performed by a reverse transcriptase real-time polymerase chain reaction (rt PCR) method on the [facility] system. This test has been authorized only [...] or revoked sooner. Performed By: #### 2 [id number] #### [facility] [address] [place] [address] SARS-CoV-2 (COVID-19) RNA RANGEL+probe Ql (Unsp spec) Pass Normal Pass [facility] Comment on above: Performed By: #### 2 [id number] #### [facility] [address] [place] [address] Specimen source Nom (Unsp spec) Nasal Normal [facility] Comment on above: Performed By: #### 2 [id number] #### [facility] [address] [place] [address] Coding Summary.on 09-13-2021 Coding Summary. CD:[id number] Gh0b Ww+PGhlYWQ+JJ4RKGZhW09ow PFeoJ5HO4nDJC5RJAKSWPBIC G9JOE3buRW2OHvdU0JfooIh YswweLTqMI15GEz8OEM2qEhh POadaD9xwVSgU4a9KwIeUI08 oQ89QTruCXCiEnW5AbVpytat bWFy I8efQcOwnDBmBeh+PHRhYmxl IHdpZHRoPScxMDAlJyBzdHls FV7hLx6pYSQpVGKocBirnXZs OiBj e6heTXJzQKshLZ0hkFllA6Ap iFW4MDNsm8v9Yk16bJW+PHRk XYM2hAhlMFozu772PjUcg1nl IDM3 iMJaMKyaAHZ8K08sb7F5AWQn BDNgMCC2rSE7zK7hxYklcump J9GcbHByHbA1XLV8xGNuaU8s bGln atsfeI5cJaj+F00CPD8ZNSXY RB2OTql5M5PmVubfnPZ+PC90 LSZpWQ59jBZsqCZfd8lnxRo9 JzEw JPAmXYS3mYrkPJfxy7BqPYQa C45yrXHcr3B9XEDrgYhrlWIz LjFwpAA1jO9pTBmwksovg5ez dzsn Qzdbx7yksq01kL06A24aMRsh SDSgURM3DCKkIWDtfJhlna3s sS4aXu2+FMzvc4bwr0mrnYm4 IjIw VOHwkjHypFmyHKZ3m6FtNm22 W9PwpRiux1VwYzw7eg40pNJk k4M8qTR9YZxqYJUjtH7ePFnr ZnQ6 HGBpXxOpiJ01kCBjNKapPf9f jWxzeZsxAE9zINXyrmofUOUx mN2bXOBycCZrzRxjAT1hFQGp bjtm h146NgMcTXB0OBVgnTWvI8Js nI1eOvGqAYZuXULoW7ZyjUFn GEzpT863VKjjHpT3WNCrvsOb Y2Fs SVKqtAuqImO4n6S1Wh5Ln9Cy eofxTEN4KJlzSJW3AxN7HrKu FcS6Y5TuDxw5KOKvfYsuWN3a J3Bh PMOegyqfaxbmdCA3YTZhHQUj oA77xGElAFyaKk3dt7O9o232 WIIpJOTjaU49Bi9epFbnAQOk dCBU cQ1lzyhda2zznggwJpTiTJNk QEy9DAk8IKKxmXipQtXjVKH4 VbG5FZO8uQYsvY9eyZfaefyi dG9w Oyc+Y06qmV0uVYZ9FUP8bklp OURznpZqQL49FI27V6TbEchc dGFibGU+UILcgdUmmUaeFZ6x YmFj z2gbi1NxMOgsL5QnBTEyBQzp Luq5HHUlVOF8eXW1zY5sATBn YEroy8B0iEG1C1AcotYovl4q b2xs JOCkURfuY39uzGJnw8V4JOQe lWV6RZOpdBvxVaQvnY65Lyd+ DHAjgKusj9PgExqhl8csy5nv dGg9 GbGhYVIkccRtiMzhULP4q2My Ox85U86cGOxiYVSuJMGcXUXq XDYaeEjgwg1cvM2nKu3+PGNv bCB3 pOO2kP7hPURuLlE9NCfyB943 XoZrbVKdThjuc6ljr1qkvTh6 HlDrVMKvejGlhMbbJPT1a8Yd Lz48 D39iDNuzVOZpHVLiHGZpMTOr oPgvss2tuI1uMe1+UW8za4pr yt82jA33aFU+FRZcFXH7uZjm PSdw FVAhgE0vGDejFqM4FCZpYuLi oD78nFOjSDvdRe5evGbtgMhx KK0qQGZkddowl766ZxQdo6ew IDEw wWLtALedEDV8A61mv4P9OXNr MKKbEIY8sRN4wR5spMwsmqcr bGVmdDsgdmVydGljYWwtYWxp Z246 IHRvcDsnPlBhdGllbnQgTmFt PDy2T1FmOig2HKKamEfhCM1v yGJdHQrgKk8uwXcuxMtjEF8f NTBp nybsc466HfZvp2cjZZUseMEc PMrdZSH8R64ct0W0QEDtWCFq FHI4uAH5eD9gsKcfimdxaOEy dDsg rwIsiYctVRrrHWzrE528OELc eLkbWxGpdvAoERByjGC6AM10 KZ93tTSan7S9hPQ4K6DkRDHe bmct dovbiLO6CRThEATadO07Zr2o yIekQg8vEVFdQLI2XXZleNTx X3PqmT1aVyXzZULsNTXlF9Uh eHQt UReaR057MRtuWdY7TGNfnlHf Y5WnWWOgvRboHwH2v7P5Er2L D1E3TL82AM46dQYku5I4sCY0 J3Bh VQSazeaknjuwxYW8SEBpCZKv sX20Wh7edNobMp9nILKhDKX8 QJVpqWOqZ5QrzU9wGeKeIJCj MDAw V4RhbGJmCYswT005PXrjFtN5 JRQtreHxZ1JaISHtaNvpDqF7 v2H6Uf8OPCv9GX12KS43rHAb c3R5 lDA3M2DzBSSijaiecrsqfTM3 LJMqNLFdhJ87Nq7hmGxqQp6j HLZeEAU7FZHfeOSgI3SjdY6k OiAj NYCdCDWvH7DzcSFeOLieS974 YVixYzZ1KKMijaEiO8JnQBVu xJzpAkJ6o0W0My1UETLeWH91 IFR5 sTW1YB45MG84R8AqAlityNNs bGU+PHRhYmxlIHdpZHRoPScx LGUnVkSnsAnfTA0wYy3zGEGo LWNv lSctaWDcYwMjf0jyZBWxAApw FX4lnCdqI6BanBY2GVWfo7r5 Gx05N35sH9IqzMV+PGNvbCB3 aWR0 rD9cKoNdDhB6VKgtM427ChAd sRHqEgylv9lrv0sorXs7DlZ4 FYTbblTlpLeuTFC9o8XrKt29 Y29s IHdpZHRoPSIxNSUiIHZhbGln da2ahY9yYk5+LYUsbEZ9gLD0 iA7wLqJcVmX1DAuaW513FmDf cCIv Tkkxi4yez7qojPa0EsMiSJOe euOtjIrqJWC0w6UkYr30X9Nb eHhgj5MtHaz1vl61pIVjn0M0 bGU9 R3WuLSDxucfowELefLhnNR1a NMYbhrkiHXNakE7lEQRuU9n5 NhJdUdC0WShxS2EwoqE3JOLe cHQg TNmaBBT7Q32aw2T4ZPIqDZOu ZMH7rBP9gK9ojTqnaxssfANe cErvaqDdoYtfZSajRCpvQ480 IHRv oBfbMFAoiU8kCUNseVBptGsd JR2yJGYvqqqzPb6JAMzWLJdm He6PPHeldZP+JXToOTW8qUmj PSdw KEKmrO4uWASpV7e1SwSpGhU9 KHsjZ0RdDCBrpnqiFp47uB8s ImAdHwJ6HAbsE0ZktzE8KCPe cHQg ASyfZQX6S82zy6H4BVJqSMKv HGZ4fAR7rE0iiWhpfsjvrOEd xWuosuHmoRsfPUyoYIgzO395 IHRv fNybUrToOfH1OyP5NXP9S7Rc Kxo0NXGtuEdaXE0bmHEvPIrj Ip3pkPsshCnuIF3xJDSgvhcx YWRk lY9zEQYljSAhjTwoJV8uTLKi urabi204TcMkRBW9UXUzyTGh E5OspT6kSrFbRXJzGCCkU5Of eHQt HMbkB920SJsaUwZ7WWQrqtSs O3NjFGBwhVjsQaG6c6B2Gv57 NiBZZWFyczwvdGQ+PHRkIHN0 eWxl WNsqCKKmgD8vFYQuR2t7MqTp NbZ0DEzsW0JdHRBumdrkPs29 mB8jCyPoOhH9BAugC3JrznI4 IDEw zJBcRPpcWTV7X74tp1M4WXOv EHVkGCB9vGO4mI5mgDkxvree bGVmdDsgdmVydGljYWwtYWxp Z246 IHRvcDsnPkZlbWFsZTwvdGQ+ JRJfMLG9vNvjTScaAWJgfJ5w HGLaA0p4YsEtUxT4XMitZ9Mo ZGRp mwtgXi16lJ9tRdOaIiW6ITgr R6EavoO5OHBvvMGbHTvbBJD5 E04xn0P8YUFhYREcBGC8uJO0 dC1h bGlnbjogbGVmdDsgdmVydGlj HDefTEbmW862DOPfxTruOuRj K7XaypuiCtsyuJX+PJ89bv83 L3Rh OxtsZbp1PLGrQLV9nAT8lK5m CSMrUTisk3S1jLZ8O4LnobVt to9vg5tpZVAeXXwpL94eeKVo c2U7 JUNpqNC1PNTywLmlHcPyxR90 Oyc+LKZguDtai8KiExcxs4ok w4milDg9PoPkWHJqmhGezVon PSJ0 t6QdCh27U88fEQerRPZrAAJs TJFoMXPyaNxtsd6hyT6sBd7+ VCMznNW7mJI1dF3dFzHsHfA1 YWxp C086JvEhfAKkIvupi8cwi7pg gIh8CkYeFFEnasYwyMwxPTN8 o3XoZp68J7BglCyjt8XeObf4 cj48 pACng9X7nIF3K9FuXWOpgwvm dOIpkCqmQE7vCWMeefygZNPg oW1iDKRlZ3o6GhFtIuJ0NNmc O2Zv gnT5JOSgaHUuUZKasFDTiZ3j iqnto4uhevloFwTkCAGyXVd9 UBz0OBZhiMmjZeTxCWO1GaS5 ZXJ0 wBEwmH2frVztddqiqJ2qUqb+ TSn5f2rceQYjII1xdVC4HW46 FI36pUVsv0B7mUW2K6PcDJRp bmct pbshwKJ3NFVtSQOsmX13Bl0n fHtsTg3yKIZiQFL4ABGxwFZt Y2KjsB3xSyJzHUHpZDVbT9Pi eHQt SUjwG230YOfeZcS3PZTrpeAd F4YvVEYffEyoTgW0h7C5Ku9Y NW73FP98UC59tBVau8P9kCB0 J3Bh QIVzwnpumddwfTR4BERvJPRy qR57Pm8aqRqbDp1dCPJgNTX2 EOFzrLFtR7NiaT4tDiUjWCBd MDAw U0KeuSYbKXgxN391PFezQiL2 XJCzggWwK6IcRCTslLskKsF2 p5J6Zr2RAg44UO68CN55xBHz c3R5 rHP0A3IfTPYpkumwpcmcsIA8 CKPmHROehE20Ky3bvEsmUf5m FFFaBDC4HJItlZYjJ1WjqM1a OiAj PIEfICLeM3GnzIUwBEggD523 LFmuOhB7WPOsrfMuM2GbYXHn gAeeYpJ2t7P0Fa1HPVtxydm1 L3Rk PjwvdHI+UK93PPUbEA08pVXz qZMwf2gqfEl1EbIyVFYiAPF2 kWbhGYqnq3JmDEHxU49hcLAk c2U6 IGNv (more content not included)... Normal [facility] Consent for Treatmenton Consent for Treatment [id number]: 127 Normal [facility] COVID-19 ([facility] [place]on 09-11-2021 ADMITTED TO INTENSIVE CARE UNIT FOR CONDITION OF INTEREST:FIND:PT: NO Normal [facility] Comment on above: Performed By: #### [id number] #### [facility] [address], [place] [address] EMPLOYED IN A HEALTHCARE SETTING:FIND:PT: Unknown Normal [facility] Comment on above: Performed By: #### 2 [id number] #### [facility] [address] [place] [address] FIRST TEST FOR CONDITION OF INTEREST:FIND:PT: Unknown Normal [facility] Comment on above: Performed By: #### 2 [id number] #### [facility] [address] [place] [address] HAS SYMPTOMS RELATED TO CONDITION OF INTEREST:FIND:PT: Unknown Normal [facility] Comment on above: Performed By: #### 2 [id number] #### [facility] [address] [place] [address] HOSPITALIZED FOR CONDITION OF INTEREST:FIND:PT: NO Normal [facility] Comment on above: Performed By: #### 2 [id number] #### [facility] [address] [place] [address] STATUS:FIND:PT: NO Normal [facility] Comment on above: Performed By: #### 2 [id number] #### [facility] [address] [place] [address] RESIDES IN A CONGREGATE CARE SETTING:FIND:PT: Unknown Normal [facility] Comment on above: Performed By: #### 2 [id number] #### [facility] [address] [place] [address] Physician Orderon 09-05-2021 Physician Order [id number] :127 Normal [facility] Physician Orderon 09-04-2021 Physician Order [id number]#[id number]: 127 Normal [facility] COVID Quick Testingon 2020 Result Negative [employer] [facility] [employer] Other Mononucleosis Test, Qualon 1 07-02-2020 Heterophile Ab LA Ql (S) Negative [employer] Other XR chest 2V*on 05-02-2021 XR chest 2V* [facility] [address] XRay Report Signed Patient: Anne Kemp MR#: [id number] 1 : 1955 Acct:[id number] Age/Sex: 66 / F ADM Date: 05/02/21 Loc: [id number] Room: Type: [facility] Attending Dr: Wilmer Patino PA-C Ordering Provider: Wilmer Patino Date of Service: 05/02/21 XR/XR chest 2V*: Cough Copies to: Wilmer Patino PA Chest 05/02/2021. CLINICAL DATA: Cough. FINDINGS: 2 [...] Granado Jr., M.D.05/02/2021 3:45 PM Dictation Location: [place] [address] Transcribed By: [facility] 05/02/21 1545 Dictated By: Arden Granado Jr, MD 05/02/21 1530 Signed By: 05/02/21 1545 Normal [facility] XR chest 2V* [facility] [employer] Other XR chest 2V* [facility] Main [facility] [employer] Other XR chest 2V* [address] [place] [address] [employer] Other XR chest 2V* [address] [employer] Other XR chest 2V* XRay Report [employer] Other XR chest 2V* Signed [employer] Other XR chest 2V* Patient: Anne Kemp MR#: [id number] [place] [employer] Other XR chest 2V* 1 [employer] Other XR chest 2V* : 1955 Acct:[id number] [employer] Other XR chest 2V* Age/Sex: 66 / F ADM Date: 05/02/21 [employer] Other XR chest 2V* Loc: [id number] Room: pe: [facility] CLI [employer] Other XR chest 2V* Attending Dr: Wilmer Patino PA-C [employer] Other XR chest 2V* Ordering Provider: Wilmer Patino [employer] Other XR chest 2V* Date of Service: 05/02/21 [employer] Other XR chest 2V* XR/XR chest 2V*: Cough [employer] Other XR chest 2V* Copies to: Wilmer Patino [employer] Other XR chest 2V* Chest 05/02/2021. [employer] Other XR chest 2V* CLINICAL DATA: Cough. N [place] Other XR chest 2V* FINDINGS: 2 views of the chest were obtained and are compared with a prior study 10/12/2014. [employer] Other XR chest 2V* The cardiac silhouet te is normal in size. The pulmonary vasculature is within normal limits. The [employer] Other XR chest 2V* lungs demonstrate chronic-appearing interstitial changes. No pulmonary consolidation or collapse is [employer] Other XR chest 2V* identified. No pneumothorax or pleural effusion is seen. The thoracic spine demonstrates [employer] Other XR chest 2V* degenerative changes . Old rib fractures are noted on the left. [employer] Other XR chest 2V* X R/XR chest 2V* [employer] Other XR chest 2V* IMPRESSION: Chronic-appearing interstitial changes. No acute cardiopulmonary disease. [employer] Other XR chest 2V* Impression dictated by: Arden Granado Jr., M.D.05/02/2021 3:45 PM [employer] Other XR chest 2V* Dictation Location: RADIO-PC-06 [employer] Other XR chest 2V* Transcribed By: [place] 05/02/21 1545 [employer] Other XR chest 2V* Dictated By: Arden Granado Jr, MD 05/02/21 1538 [employer] Other XR chest 2V* Signed By: [employer] Other XR chest 2V* 05/02/[address] [facility] [employer] Other C-Reactive Proteinon 021 C-Reactive Protein 0.7 mg/dL Normal 0.0-1.0 [facility] Comment on above: Performed By: #### P TH, CBC, CMP, [id number], ESR, CRP, URIC #### [facility] [address] [place] [address] Complete Blood Count Auto Di ffon 11-17-2020 Basophils (Bld) [#/Vol] 0.0 10*3/uL Normal 0.0-0.2 [facility] Comment on above: Performed By: #### P TH, CBC, CMP, [id number], ESR, CRP, URIC #### [facility] [address] [place] [address] [place] Basophils/100 WBC (Bld) 0.6 % Normal . [facility] Comment on above: Performed By: #### P TH, CBC, CMP, [id number], ESR, CRP, URIC #### [facility] [address] [place] [address] [place] Eosinophils (Bld) [#/Vol] 0.2 10*3/uL Normal 0.0-0.45 [facility] Comment on above: Performed By: #### P TH, CBC, CMP, [id number], ESR, CRP, URIC #### [address] Eosinophils/100 WBC (Bld) 2.8 % Normal . [facility] Comment on above: Performed By: #### P TH, CBC, CMP, [id number], ESR, CRP, URIC #### [address] Erythrocyte distribution width (RBC) [Ratio] 13.5 % Normal 11.9-15.3 [facility] Comment on above: Performed By: #### P TH, CBC, CMP, [id number], ESR, CRP, URIC #### [address] Hematocrit (Bld) [Volume fraction] 36.4 % Normal 34.0-46.4 [facility] Comment on above: Performed By: #### P TH, CBC, CMP, [id number], ESR, CRP, URIC #### [address] Hemoglobin (Bld) [Mass/Vol] 12.5 g/dL Normal 11.8-15.4 [facility] Comment on above: Performed By: #### P TH, CBC, CMP, [id number], ESR, CRP, URIC #### [address] Lymphocytes (Bld) [#/Vol] 1.9 10*3/uL Normal 1.00-4.8 [facility] Comment on above: Performed By: #### P TH, CBC, CMP, [id number], ESR, CRP, URIC #### [address] Lymphocytes/100 WBC (Bld) 33.4 % Normal . [facility] Comment on above: Performed By: #### P TH, CBC, CMP, [id number], ESR, CRP, URIC #### [address] MCH (RBC) [Entitic mass] 31.6 pg Normal 24.7-34.3 [facility] Comment on above: Performed By: #### P TH, CBC, CMP, [id number], ESR, CRP, URIC #### [facility] [address] MCV (RBC) [Entitic vol] 92.0 fL Normal 80-100 [facility] Comment on above: Performed By: #### P TH, CBC, CMP, [id number], ESR, CRP, URIC #### [facility] [address] Mean Corpuscular HGB Conc 34.3 g/dL Normal 32.0-35.0 [facility] Comment on above: Performed By: #### P TH, CBC, CMP, [id number], ESR, CRP, URIC #### [address] Monocytes (Bld) [#/Vol] 0.5 10*3/uL Normal 0.0-0.8 [facility] Comment on above: Performed By: #### P TH, CBC, CMP, [id number], ESR, CRP, URIC #### [address] Monocytes/100 WBC (Bld) 9.2 % Normal . [facility] Comment on above: Performed By: #### P TH, CBC, CMP, [id number], ESR, CRP, URIC #### [address] Neutrophils (Bld) [#/Vol] 3.1 10*3/uL Normal 1.8-7.7 [facility] Comment on above: Performed By: #### P TH, CBC, CMP, [id number], ESR, CRP, URIC #### [address] Neutrophils/100 WBC (Bld) 54.0 % Normal . [facility] Comment on above: Performed By: #### P TH, CBC, CMP, [id number], ESR, CRP, URIC #### [place] [address] [place] Nucleated RBC/100 WBC (Bld) [Ratio] 0.1 % Normal 0-0.5 [facility] Comment on above: Performed By: #### P TH, CBC, CMP, [id number], ESR, CRP, URIC #### [address] Platelet mean volume (Bld) [Entitic vol] 7.0 fL Normal 6.3-10.7 [facility] Comment on above: Performed By: #### P TH, CBC, CMP, [id number], ESR, CRP, URIC #### [address] Platelets (Bld) [#/Vol] 336 10*3/uL Normal 150-450 [facility] Comment on above: Performed By: #### P TH, CBC, CMP, [id number], ESR, CRP, URIC #### [address] RBC (Bld) [#/Vol] 3.95 10*6/uL Normal 3.60-5.00 [facility] Comment on above: Performed By: #### P TH, CBC, CMP, [id number], ESR, CRP, URIC #### [address] WBC (Bld) [#/Vol] 5.7 10*3/uL Normal 4.5-11.0 [facility] Comment on above: Performed By: #### P TH, CBC, CMP, [id number], ESR, CRP, URIC #### [address] Comprehensive Metabolic Pane mariela 11-17-2020 Albumin [Mass/Vol] 4.1 g/dL Normal 3.2-5.5 [facility] Comment on above: Performed By: #### P TH, CBC, CMP, [id number], ESR, CRP, URIC #### [address] Albumin/Globulin [Mass ratio] 1.4 {ratio} Normal [facility] Comment on above: Performed By: #### P TH, CBC, CMP, [id number], ESR, CRP, URIC #### [facility] [address] [place] [address] ALP [Catalytic activity/Vol] 105 U/L High 32-92 [facility] Comment on above: Performed By: #### P TH, CBC, CMP, [id number], ESR, CRP, URIC #### [address] ALT [Catalytic activity/Vol] 19 U/L Normal 10-60 [facility] Comment on above: Performed By: #### P TH, CBC, CMP, [id number], ESR, CRP, URIC #### [facility] [address] [place] [address] AST [Catalytic activity/Vol] 25 U/L Normal 10-42 [facility] Comment on above: Performed By: #### P TH, CBC, CMP, [id number], ESR, CRP, URIC #### [facility] [address] [place] [address] Bilirubin [Mass/Vol] 0.5 mg/dL Normal 0.3-1.2 [facility] Comment on above: Performed By: #### P TH, CBC, CMP, [id number], ESR, CRP, URIC #### [facility] [address] [place] [address] Calcium [Mass/Vol] 9.8 mg/dL Normal 8.2-10.2 [facility] Comment on above: Performed By: #### P TH, CBC, CMP, RVNB26LL, ESR, CRP, URIC #### [facility] [address] [place] [address] Chloride [Moles/Vol] 101 mmol/L Normal 95-114 [facility] Comment on above: Performed By: #### P TH, CBC, CMP, USHY56HO, ESR, CRP, URIC #### [facility] [address] [place] [address] CO2 [Moles/Vol] 27.1 mmol/L Normal 22.0-30.0 [facility] Comment on above: Performed By: #### P TH, CBC, CMP, [id number], ESR, CRP, URIC #### [facility] [address] Creatinine [Mass/Vol] 0.61 mg/dL Normal 0.44-1.03 [facility] Comment on above: Performed By: #### P TH, CBC, CMP, [id number], ESR, CRP, URIC #### [facility] [address] Estimated GFR ( [place] > 60 Normal [facility] Comment on above: Result Comment: GFR estimated reference range: According to KDOQI guidelines, <60 ml/min/1.73m2 is sufficient to diagnose a patient with chronic kidney disease. Performed By: #### P TH, CBC, CMP, [id number], ESR, CRP, URIC #### [facility] [address] Estimated GFR (Non- Am > 60 Normal [facility] Comment on above: Performed By: #### P TH, CBC, CMP, TQAC41XP, ESR, CRP, URIC #### [address] Globulin (S) [Mass/Vol] 3.0 g/dL Normal [facility] Comment on above: Performed By: #### P TH, CBC, CMP, RFYN27DS, ESR, CRP, URIC #### [address] Glucose [Mass/Vol] 86 mg/dL Normal 70-100 [facility] Comment on above: Result Comment: [place] Glucose Reference Range is dependent on time and content of last meal. Glucose of more than 200 mg/dL in a nonstressed, ambulatory subject supports the diagnosis of Diabetes Mellitus. ADA recommended reference range Performed By: #### P TH, CBC, CMP, [id number], ESR, CRP, URIC #### [address] Potassium [Moles/Vol] 4.9 mmol/L Normal 3.5-5.1 [facility] Comment on above: Performed By: #### P TH, CBC, CMP, [id number], ESR, CRP, URIC #### [facility] [address] Protein [Mass/Vol] 7.1 g/dL Normal 6.1-7.9 [facility] Comment on above: Performed By: #### P TH, CBC, CMP, TVQX78DX, ESR, CRP, URIC #### [facility] [address] Sodium [Moles/Vol] 137 mmol/L Normal 136-146 [facility] Comment on above: Performed By: #### P TH, CBC, CMP, [id number], ESR, CRP, URIC #### [address] Urea nitrogen [Mass/Vol] 11 mg/dL Normal 9-23 [facility] Comment on above: Performed By: #### P TH, CBC, CMP, [id number], ESR, CRP, URIC #### [address] Erythrocyte Sedimentation Ra issa 11-17-2020 ESR (Bld) [Velocity] 17 mm/h Normal 0-29 [facility] Comment on above: Result Comment: PERF ORMED BY: [place] [address] PATHOLOGIST INSPECTOR TYPE MAAME REVELES M.D. Performed By: #### P TH, CBC, CMP, [id number], ESR, CRP, URIC #### [address] Parathyroid Hormone Intacton 11-17-2020 Parathyroid Hormone Intact 44.4 pg/mL Normal 12-88 [facility] Comment on above: Result Comment: PERF ORMED BY: [place] [address] PATHOLOGIST INSPECTOR TYPE MAAME REVELES M.D. Performed By: #### P TH, CBC, CMP, [id number], ESR, CRP, URIC #### [address] Uric Acidon 11-17-2020 Urate [Mass/Vol] 3.2 mg/dL Normal 2.6-7.2 [facility] Comment on above: Performed By: #### P TH, CBC, CMP, [id number], ESR, CRP, URIC #### [facility] [address] [place] [address] Vitamin D 25 Hydroxy Totalon 11-17-2020 Vitamin D 25 Hydroxy Total 43.7 ng/mL Normal 30-100 [facility] Comment on above: Result Comment: ANNEL MIN D STATUS 25(OH)VITAMIN D RANGE (ng/mL) Deficient <20 Insufficient 20 to <30 Sufficient 30 to 100 Reference: Agapito MF,Amina NC, Cesario KATHLEEN, et al. Evaluation,treatment, and prevention of vitamin D deficiency; an Endocrine Society clinical practice guideline. JCEM. 2010; 96(7):1911-30. Performed By: #### P TH, CBC, CMP, [id number], ESR, CRP, URIC #### [facility] [address] [place] [id number] [facility] MR head/brain wo conon 10-14 MR head/brain wo [facility] [place] [address] [place] [address] MRI Report Signed Patient: Anne Kemp MR#: [id number] 1 : 1955 Acct:[id number] Age/Sex: 65 / F ADM Date: 10/14/20 Loc: [facility] Room: Type: [facility] Attending Dr: Emily Velázquez DO Ordering Provider: [...] Granado Jr., M.D.10/14/2020 3:53 PM Dictation Location: [place] [address] Transcribed By: [facility] 10/14/20 155 Dictated By: Arden Granado Jr, MD 10/14/20 1547 Signed By: 10/14/[address] [facility] ANKLE LEFT 3 [facility] 0 ANKLE LEFT 3 [facility] Department of Radiology [address] [place] [phone] == Patient Name: ANNE KEMP : 1955 Sex: F Age: Race: White Pt. Location: Patient Status: D Ordered Date: 06/23/2019 3:00:00 PM Completed Date: 06/23/2019 03:11 PM Requesting Provider: DANA JI Attending Provider: DANA JI Report Copy To: Signs & Symptoms: M25.562 Pain in left knee I10 History: [place] Comments: , , , Ordering Provider - DANA JI MD , Exam: ANKLE LEFT [address] [facility] == KNEE LEFT 3 VWS, ANKLE LEFT [...] AP,Lateral and Tangential views were obtained. (accession [id number]), AP,Lateral and Oblique views were obtained. (accession [id number]) COMPARISON: None FINDINGS: Soft tissues: No acute [...] ankle Electronically signed: Zeus Zee. Transcribed by: [email or web address], User Resident: Electronically Signed by: ZEUS ZEE @ 06/24/2019 01:55 PM Normal [facility] Comment on above: Order Comment: , , = ========= , Ordering Provider - DANA JI MD , KNEE LEFT 3 VWSon 06-23-2019 KNEE LEFT 3 [facility] Department of Radiology [address] [place] [phone] == Patient Name: ANNE KEMP : 1955 Sex: F Age: Race: White Pt. Location: 84 Patient Status: D Ordered Date: 06/23/2019 3:00:00 PM Completed Date: 06/23/2019 03:11 PM Requesting Provider: DANA JI Attending Provider: DANA JI Report Copy To: Signs & Symptoms: M25.562 Pain in left knee I10 History: [place] Comments: , , , Ordering Provider - [...] AP,Lateral and Tangential views were obtained. (accession [id number]), AP,Lateral and Oblique views were obtained. (accession [id number]) COMPARISON: None FINDINGS: Soft tissues: No acute [...] ankle Electronically signed: Zeus Zee. Transcribed by: [email or web address], User Resident: Electronically Signed by: ZEUS ZEE @ 06/24/2019 01:55 PM [facility] Comment on above: Order Comment: , , = ========= , Ordering Provider - DANA JI MD , HARJINDEROVSPon 04-11-2018 [facility] Visit (SP) Office ([place]) LESARobin MATTHEWS ([id number]) 1955 FDate Time Provider Cgrbkcedrn65/2/18 10:00 AM VICTORIA BURR During your visit [...] Pulmonary nodule - ICD9: 793.11, ICD10: R91.1See Carlos [address] St Provider: YESSY GREENE [[id number]]Allergies As of Date: 04/11/2018 Noted Allergy ReactionCODEINE [...] by VICTORIA BURR MD on 04/11/18 Normal [facility] PROGRESSon 04-11-2018 Protein mass conc HNO ID: [id number]: Victoria BurrService: (none)Author Type: PhysicianType: Progress NotesFiled: 04/11/2018 12:32 [...] R06.00,R06.89 (primary diagnosis)Albuterol trial. Will follow up [facility].2. Pulmonary nodule - ICD9: 793.11, ICD10: R91.1See Brianna Burr [facility] 04-03-2018 CNOVSP Visit (SP) Office ([place]) Robin KEMP ([id number]) 1955 [facility] Time Provider Gxytktmqfl21/25/18 8:30 AM VICTORIA BURR During your visit today, we recorded the following information about you: Temperature Pulse Respiration Blood pressure 99.4 degrees 81/minute 16/minute 129/76 Weight Height 69.3 kg 1.727 Jhonny Burr MD 04/03/2018 10:55 AM Christina Kemp is a 63 year old female who presents in consultation today 2017. Her history begins out west in [place] where she tripped over a treeroot in [facility] and had blunt trauma to her abdomen [...] [place]. [place] We will check PFTs and I'll see her in an one week.- OXIMETRY AT REST2. Dyspnea and respiratory abnormalities - ICD9: 786.09, ICD10: R06.00, R06.89See above- OXIMETRY AT RESTCarlos Enrique Gunter Provider: YESSY GREENE [[id number]]Allergies As of Date: 04/03/2018 Noted Allergy ReactionCODEINE 04/21/2007PENICILLINS 04/21/2007Date Reviewed: 04/03/2018Reviewed by: Daisha Sanchez - Fully AssessedReason for Visit: abnormal ct scan of the chest [Other] Cmt: new patient consultationPrimary Visit Diagnosis:Pulmonary nodule [R91.1] Other Visit Diagnosis:Dyspnea and respiratory abnormalities [R06.00, R06.89]Order(s):OXIMETRY AT REST [[id number]] Order #: [id number] FUTUREDisposition: Return in about 1 week (around [...] by VICTORIA BURR MD on 04/03/18 Normal [facility] PROGRESSon 04-03-2018 Protein mass conc HNO ID: [id number]: Victoria Cordon: (none)Author Type: PhysicianType: Progress NotesFiled: 04/03/2018 10:55 AMNote Text:Flor Kemp is a 63 year old female who presents in consultation todayApril 03, 2018. [place] shetripped over a tree root in [facility] and [place] lacerated her hepatic artery. She was [...] playing a role.She will be going to [place] in a few weeks. We will check PFTs and I'llsee her in an one week.- OXIMETRY AT REST2. Dyspnea and respiratory abnormalities - ICD9: 786.09, ICD10: R06.00,R06.89See above- OXIMETRY AT RESTVictoria Burr MD Normal [facility] Vital Signs Date Time Vital Sign Value Performing Clinician Facility 09-21-2021 09:59-0400 Diastolic blood pressure 87 mm[Hg] [facility] 09-21-2021 09:59-0400 Heart rate 94 /min [facility] 09-21-2021 09:59-0400 Systolic blood pressure 146 mm[Hg] [facility] 09-21-2021 09:00-0400 Promise to Return [facility] 09-21-2021 08:45-0400 Hourly Rounding [facility] 09-21-2021 08:43-0400 Diastolic blood pressure 95 mm[Hg] [facility] 09-21-2021 08:43-0400 Heart rate 102 /min [facility] 09-21-2021 08:43-0400 Systolic blood pressure 154 mm[Hg] [facility] 09-21-2021 08:00-0400 Body temperature 98.24 [degF] [facility] 09-21-2021 08:00-0400 SaO2% (BldA) [Mass fraction] 98 % [facility] 09-21-2021 02:20-0400 Blood Pressure Location [facility] 09-21-2021 02:20-0400 BP/Pulse Patient Position [facility] 09-21-2021 02:20-0400 Diastolic blood pressure 97 mm[Hg] [facility] 09-21-2021 02:20-0400 Mean blood pressure 118 mm[Hg] [facility] 09-21-2021 02:20-0400 Systolic blood pressure 160 mm[Hg] [facility] 09-21-2021 01:02-0400 Blood Pressure Location [facility] 09-21-2021 01:02-0400 BP/Pulse Patient Position [facility] 09-21-2021 01:02-0400 Mean blood pressure 126 mm[Hg] [facility] 09-21-2021 00:00-0400 Blood Pressure Location [facility] 09-21-2021 00:00-0400 Body temperature 98.06 [degF] [facility] 09-21-2021 00:00-0400 BP/Pulse Patient Position [facility] 09-21-2021 00:00-0400 Heart rate 93 /min [facility] 09-21-2021 00:00-0400 Mean blood pressure 127 mm[Hg] [facility] 09-21-2021 00:00-0400 SaO2% (BldA) [Mass fraction] 97 % [facility] 09-20-2021 20:24-0400 Heart rate 98 /min [facility] 09-20-2021 19:38-0400 Body temperature 98.24 [degF] [facility] 09-20-2021 19:38-0400 Heart rate 98 /min [facility] 09-20-2021 19:38-0400 Mean blood pressure 122 mm[Hg] [facility] 09-20-2021 19:38-0400 SaO2% (BldA) [Mass fraction] 95 % [facility] 09-20-2021 19:00-0400 Respiratory rate 16 /min [facility] 09-20-2021 17:30-0400 Heart rate 99 /min [facility] 09-20-2021 17:30-0400 Mean blood pressure 88 mm[Hg] [facility] 09-20-2021 17:30-0400 Respiratory rate 18 /min [facility] 09-20-2021 08:22-0400 Mean blood pressure 98 mm[Hg] [facility] 09-19-2021 13:45-0400 Body temperature 97.16 [degF] [facility] 09-19-2021 13:45-0400 Respiratory rate 17 /min [facility] 09-19-2021 13:35-0400 Respiratory rate 18 /min [facility] 09-19-2021 13:30-0400 Respiratory rate 12 /min [facility] 09-19-2021 13:19-0400 Body temperature 97.16 [degF] [facility] 09-15-2021 16:51-0400 Body temperature 97.7 [degF] [facility] 09-15-2021 16:51-0400 Diastolic blood pressure 88 mm[Hg] [facility] 09-15-2021 16:51-0400 Heart rate 66 /min [facility] 09-15-2021 16:51-0400 Mean blood pressure 108 mm[Hg] [facility] 09-15-2021 16:51-0400 Respiratory rate 16 /min [facility] 09-15-2021 16:51-0400 SaO2% (BldA) [Mass fraction] 98 % [facility] 09-15-2021 16:51-0400 Systolic blood pressure 146 mm[Hg] [facility] 09-15-2021 16:51-0400 Blood Pressure Location [facility] 09-15-2021 16:50-0400 Blood Pressure Location [facility] 09-15-2021 16:50-0400 Diastolic blood pressure 82 mm[Hg] [facility] 09-15-2021 16:50-0400 Heart rate 69 /min [facility] 09-15-2021 16:50-0400 Mean blood pressure 104 mm[Hg] Cas Pocos [facility] 09-15-2021 16:50-0400 Respiratory rate 16 /min Cas Pocos [facility] 09-15-2021 16:50-0400 Systolic blood pressure 147 mm[Hg] Cas Pocos [facility] 05-02-2021 15:20-0500 Body height 172.72 cm Wilmer Patino Other [facility] 05-02-2021 15:20-0500 Body mass index (BMI) [Ratio] 24.33 kg/m2 Wilmer Patino Other [facility] 05-02-2021 15:20-0500 Body temperature 98.6 [degF] Wilmer Patino Other [facility] Other 05-02-2021 15:20-0500 Body weight 72.58 kg Wilmer Patino Other [facility] Other 05-02-2021 15:20-0500 Respiratory rate 16 /min Wilmer Patino Other [facility] 05-02-2021 15:20-0500 SaO2% (BldA) [Mass fraction] 95 % Wilmer Patino Other [facility] Other Encounters Encounter Date Encounter Type Care Provider Facility Start: 06-27-2023 End: 06-27-2023 ambulatory KERRI PARISH Not Available Start: 11-07-2022 ambulatory PIPELINE OPERATOR KERRI PARISH Facil ity:H1 Start: 10-25-2022 End: 10-26-2022 ambulatory PIPELINE OPERATOR KERRI PARISH Facility:H1 Start: 07-19-2022 End: 07-20-2022 ambulatory PIPELINE OPERATOR KERRI PARISH Facility:H1 Start: 07-11-2022 End: 07-12-2022 ambulatory PIPELINE OPERATOR KERRI PARISH Facility:H1 Start: 09-19-2021 End: 09-21-2021 ambulatory DO Cas Severino Facility:[facility] Start: 09-19-2021 End: 09-21-2021 Observation Cas Severino [facility] Start: 09-15-2021 End: 09-16-2021 ambulatory DO Cas Severino Facility:[facility] Start: 09-15-2021 End: 09-15-2021 Patient encounter procedure Cas Joe Pocos [facility] Start: 09-12-2021 End: 12-12-2021 ambulatory DO Cas Joe Pocharley Facility:[facility] Start: 09-04-2021 End: 12-11-2021 Preprocedural examination done Cas Joe Pocharley [facility] Start: 09-04-2021 End: 12-11-2021 Recurring Cas Joe Pocos [facility] Start: 05-02-2021 End: 05-02-2021 ambulatory Wilmer Patino Other [facility] Start: 05-02-2021 Office outpatient vi sit 15 minutes Wilmer Patino [facility] Start: 04-11-2018 End: 04-14-2018 Patient encounter procedure VICTORIA BURR [facility] Start: 04-03-2018 End: 04-04-2018 [facility] Procedures Date Procedure Procedure Detail Performing Clinician Start: 09-19-2021 Total knee replacement Cas Pocos Arthroplasty of knee Cas Amador ocos Cholecystectomy Cas Pocos Immunizations Immunization Date Immunization Notes Care Provider Gina parikh 03-11-2014 tetanus toxoid, reduced diphtheria toxoid, and acellular pertussis vaccine, adsorbed Wilmer Patino Other [facility] Other Payers Date Payer Category Payer Self-pay 1959 Medicare [id number] 2.1 [id number] 1959 Unknown [id number] 2. [id number] 1955 Unknown [id number] 2.16.8 [id number] 1955 Unknown [id number] 2.16.8 [id number] 1955 Unknown [id number] 2.16.8 [id number] 1955 Unknown [id number] 2.16.84 [id number] 1955 Unknown [id number] 2.16.84 [id number] 1955 Unknown [id number] 2.16.84 [id number] 1955 Unknown [id number] 2.16.84 [id number] 1955 Unknown [id number] 2.16.84 [id number] 1955 Unknown [id number] 2.16.84 [id number] Social History Date Type Detail Facility Tobacco smoking status Unknown if ever sm oked [facility] Other Sex Assigned At Female [facility] Other Tobacco smoking status No Smoking Status Entered [facility] Medical Equipment Procedure Code Equipment Code Equipment Origin al Text Equipment Identifier Dates FDA Start: 09-19-2021 FDA Start: 09-19-2021 FDA Start: 09-19-2021 FDA Start: 09-19-2021 FDA Start: 09-19-2021 FDA Start: 09-19-2021 FDA Start: 09-19-2021 KNEE TOTAL ARTHROPLASTY REVISION Cas Severino DO 09/19/21 Unknown Knee L FDA Start: 09-19-2021 KNEE TOTAL ARTHROPLASTY REVISION Pocos DOCas 09/19/21 Unknown Knee L FDA Start: 09-19-2021 KNEE TOTAL ARTHROPLASTY REVISION Pocos DOCas 09/19/21 Unknown Knee L FDA Start: 09-19-2021 KNEE TOTAL ARTHROPLASTY REVISION Pocos DOCas 09/19/21 Unknown Knee L FDA Start: 09-19-2021 KNEE TOTAL ARTHROPLASTY REVISION Erick KRUGER Cas Joe 09/19/21 Unknown Knee L FDA Start: 09-19-2021 KNEE TOTAL ARTHROPLASTY REVISION Erick DO Lavell 09/19/21 Unknown Knee L FDA Start: 09-19-2021 KNEE TOTAL ARTHROPLASTY REVISION Erick KRUGER Cas Joe 09/19/21 Unknown Knee L FDA [...] see the chart. Franki Lee Dictated: 09/26/2021 [id number] Transcribed: 09/26/2021 [facility] Comment on above: Result Comment: Elec tronically [...] the physical therapy. Franki Lee Dictated: 09/21/2021 [id number] Transcribed: 09/21/2021 [facility] Comment on above: Result Comment: Elec tronically [...] made to ensure accuracy, however, inadvertently computerized certified personal trainer mistakes may be present. Extracted from: Title:Consult [...] from: Title:ANES POSTOP MAC/GEN NOTE Author:Luis M Cooper Date:09/19/21 Plan Transfer/ Discharge: Patient can be discharged from PACU when criteria met. Condition good. Extracted from: Title:Anesthesia Pre-Op Note Author:Luis M Delgado CRNA Date:09/19/21 Plan [place] Society of Anesthesiologists (ASA) physical status classification: Class II. Anesthetic Preoperative Plan Anesthesia: Regional (Spinal, adductor canal left). Anesthetic plan, risks, benefits, and alternatives discussed with the patient and/or family. Patient verbalized understanding. [facility]04-14-2022 NoteDAILY PROGRESS NOTE: 09/20/2021 HISTORY: Anne [...] have anybody athome and is really questioning penitentiary. We did explain the indication for penitentiary and the downside risk of penitentiary in the setting of revision knee arthroplasty. She does inquire about aides to help her otherwise. We will have discharge planning discuss further. Franki Lee Dictated: 09/20/2021 [id number] Transcribed: 09/20/2021[facility]Result Comment: Electronically Signed By: Cas Severino DO\.br\Date and Time Signed: 09/21/21 06:46 [id number] NoteReason for Consultation Medical management. History of [...] Oral, BID, PRN, Pre-arriva (more content not included)...[facility]Result Comment: Electronically Signed By: Jewels DOMINGUEZ\.br\Date and Time Signed: 09/20/21 16:56 EDT\.br\Electronically Co-Signed By: Brijesh BARRETT MD\.br\Date and Time Co-Signed: 09/20/2216:58 [id number] Hospital Discharge instructions Patient Education 09/19/2021 19:46:32 Fall Prevention in the Home, Adult, Qfol-tx-Tybr Fall Prevention in the Home, Adult Falls [...] Keep items that you use often in wkwm-pm-eybjn places. Lower the shelves around your home [...] of the way. Do not use floor ethiopian or wax that makes floors slippery. If [...] for Disease Control and PreventionRAKAN: https://cdc.gov National [place] on Aging: https://xd3savl.bryson.nih.gov Contact a doctor if: You are afraid [...] 03/23/2010 Document Revised: 09/17/2019 Document Reviewed: 01/09/2018 [employer]-Box - Blogo.it Patient Education 2020 Backplane. 09/12/2021 07:12:58 Pocos - Total Knee Arthroplasty. Revised 08/01/11. (Custom) [place], [place] [facility] DISCHARGE INSTRUCTIONS TOTAL KNEE [...] will continue at home, possible with the car rental sales assistant of Home Health Physical Therapy or in [...] weeks postop. Cas Severino, DO [facility] [address] [place], [place] [id number] Reviewed: 09-15 Revised 06/21 Follow Up Care 09/04/2021 15:44:18 With:Cas Severino Address: [address] [place] [address] Business (1) When:10/18/2021 15:00:00 With:KERRI LUGO Address: [address] [place] [phone] Business (1) When: Unknown [facility]04-12-2022 NotePT Evaluation completed with an AMPA score of 16/24. Pt was able to perform bed mobility with Mod I and transfers with Min A. Pt was able to ambulate 10 feet with FWW and Min A. Will follow daily with recommendations to follow on POD # 1Fshonna [facility]04-11-2022 [id number]11-23-2021 Evaluation note* Encounter Date Diagnosis Assessment Notes [...] diseases (ICD-10 - Z20.828) Covid test negative. Woodruff test performed per pt request, and that was also negative. See above tx plan. Apr, Other Additional time spent conducting pre-visit phone call, screening for symptoms, instructions on social distancing, application and removal of PPE, and cleaning of examination room, equipment and supplies was preformed. Patient education given for testing methodology and results. Patient care instructions given in writting by [facility] Care At Home document. [facility] Other Evaluation + Plan note Future Appointments Appointment Date:09/19/2021 11:30:00 AM Scheduled Provider: Location:[facility] - [facility]orted* Type Description Date Medical History Hypertension Medical History Hypothyroid Medical History Bipolar 1 disorder Medical History RA Medical History Arthritis Surgical History partial knee replacement Surgical History Uvulopalatopharyngoplasty Surgical History cholecystectomy Surgical History tonsillectomy and adenoidectomy Surgical History knee replacement Hospitalization History pyelonephritis 2009 [facility] Other Hospital course Narrative No data available for this section [facility] No data available for this section [facility] No data available for this section [facility] Summary Purpose Family History No Family [...] section and content) DATE CREATED AUTHOR 05/18/2018 [facility] DATE CREATED AUTHOR AUTHOR'S ORGANIZ ATION 12/31/2019 [facility] DATE CREATED AUTHOR AUTHOR'S ORGANIZ ATION 07/12/2021 [facility] DATE CREATED AUTHOR AUTHOR'S ORGANIZ ATION 03/10/2022 [facility] DATE CREATED AUTHOR AUTHOR'S ORGANIZ ATION 11/16/2022 [facility] DATE CREATED AUTHOR AUTHOR'S ORGANIZ ATION 06/29/2023 [facility] EPIC REASON FOR VISIT (unrecogniz ed section and content) #23 4 to 6 weeks of symptoms , headache, sore throat Care Team (unrecognized sect ion and content) Personnel Name: KERRI LUGO CNP Address: [address] [place] [id number] Name: Nori Gomez FOR RECORDS PERTAINING TO [...] BE BASED ON THE PRIMARY CLINICAL RECORDS. [facility] [employer] [facility]. provides no warranty or guarantee of the accuracy or completeness of information in this document.
[2023-07-04 13:33] LABS: Basophils Absolute Auto 0.1 10^3/uL (0.0-0.1); Basophils Percent Auto 0.8 % (0.2-2.0); Eosinophils Absolute Auto 0.2 10^3/uL (0.0-0.7); Eosinophils Percent Auto 2.9 % (0.9-7.0); Hemoglobin 12.3 g/dL (12.0-16.0); Immature Granulocytes Abs Auto 0.01 10^3/uL (0.00-0.03); Immature Granulocytes Pct Auto 0.2 % (0.0-0.5); Lymphocytes Absolute Auto 1.5 10^3/uL (1.2-3.8); Mean Corpuscular HGB Conc 34.2 g/dL (29.9-35.2); Mean Corpuscular Hemoglobin 30.6 pg (26.7-34.0); Mean Corpuscular Volume 89.6 fL (81.0-99.0); Mean Platelet Volume 8.1 fL (9.5-13.5); Monocytes Absolute Auto 0.6 10^3/uL (0.3-0.8); Monocytes Percent Auto 10.5 % (1.7-12.0); Neutrophils Absolute Auto 3.6 10^3/uL (1.4-6.5); Neutrophils Percent Auto 60.6 % (43.0-75.0); Platelet Count 380 10^3/uL (150-450); Red Blood Count 4.02 10^6/uL (4.20-5.40); Red Cell Distribution Width 13.1 % (11.0-15.0); White Blood Count 5.9 10^3/uL (4.0-11.0)
[2023-07-04 13:52] LABS: Alanine Aminotransferase 37 U/L (14-59); Albumin Level 3.8 g/dL (3.4-5.0); Alkaline Phosphatase 112 U/L (46-116); Anion Gap 13.2; Aspartate Amino Transferase 25 U/L (15-37); BUN Creatinine Ratio 19.8; Bilirubin Total 0.4 mg/dL (0.2-1.0); Calcium 9.5 mg/dL (8.5-10.1); Carbon Dioxide 29.9 mmol/L (21.0-32.0); Chloride 98 mmol/L (98-107); Estimated GFR (African America >60 (>=60); Estimated GFR (Non-African Ame 55 (>=60); Globulin 3.8 g/dL; Glucose 78 mg/dL (74-106); Potassium 4.1 mmol/L (3.5-5.1); Sodium 137 mmol/L (136-145); Total Protein 7.6 g/dL (6.4-8.2)
== END 2023-07-04 13:11 | disposition home or self-care (01) ==
LOC: LAB 13:12
PROVIDERS: PCP Nurse Practitioner; Visit Provider Nurse Practitioner
DX: E87.1 Hypo-osmolality and hyponatremia (principal); D64.89 Other specified anemias
CPT/HCPCS: 36415; 80053; 82728; 83540; 85025

== ENCOUNTER 2024-12-17 12:31 | Emergency (ER) | payer MEDICARE, OTHER, SELFPAY ==
[2024-12-17] VITALS (21 sets, daily range): BP systolic 150–157; BP diastolic 93–114; PULSE 58–66; TEMP 36.4; O2SAT 95–100; BMI 25.1
--- OUTSIDE RECORDS SUMMARY | 2024-12-17 11:30 | XMS_ITS | Encounter Summary ---
Author Organization [facility] Address [address] [place] [address] Care Team Providers Care Payroll And Benefits Specialist Name Role Phone Yaritza Mueller RETAIL ACCOUNT REPRESENTATIVE Unavailable [phone] Dashawn Cummins MD Primary Care Provider [phone] Yaritza Mueller RETAIL ACCOUNT REPRESENTATIVE Unavailable [phone] Reason for Visit * Reason Comments UTI Encounter Details Date Type Department Care Team (Late st Contact Info) Description 12/17/2024 11:30 AM EDT Office Visit [facility] [address] [place] [address] Yaritza Mueller RETAIL ACCOUNT REPRESENTATIVE [address] [place] [address] Social History Tobacco Use Types Packs/Day Years Used Date Smoking Tobacco: Former Cigarettes Q uit: 1989 Smokeless Tobacco: Never Alcohol Use Standard Drinks/Week Comments Never 0 (1 standard drink = 0.6 oz pur e alcohol) coffee: 2 cups daily Comments Unknown Sex and Gender Information Value Date Recorded Sex Assigned at Not on file Legal Sex Female 8:34 PM EDT Gender Identity Not on file Sexual Orientation Not on file documented as of this encounter Last Filed Vital Signs Vital Sign Reading Time Taken Comments Blood Pressure 126/82 12/17/2024 11:40 AM EDT Pulse 63 12/17/2024 11:40 AM EDT Temperature 36.9 C (98.5 F) 12/17/2024 11:40 AM EDT Respiratory Rate 18 12/17/2024 11:40 AM EDT Oxygen Saturation 97% 12/17/2024 11:40 AM EDT Inhaled Oxygen Concentration - - Weight 74.4 kg (164 lb) 12/17/2024 11:40 AM EDT Height - - Body Mass Index 25.31 06/27/2023 5:02 PM EST documented in this encounter Patient Instructions * Patient Instructions* Yaritza Mueller NP - 12/17/2024 11:30 AM EDT Tightness to chest, dyspnea, strong family hx CAD She has HLD intolerant to statins alled the first time thinking it was eye infection- possible allergies Pt thought she had possibly a uti due to feeling weird , forgetfulness, twinges in the bladder andfeverish Pt states she feels that she has that under controlled Pt kept appt today due to high BP. She was hospitalized last year in [place] due to possible stroke, it was not a stroke however she had vascular changes in her brain, high BP and high cholesterol of300+ She is on medications: Metoprolol 50mg 1 tab 2x daily Losartan 25mg once daily Ezetimbe 10mg 1 tab daily Pt checks BP at home she wasn't felt quite right- anxiety headaches sob fatigue lightheaded dizziness Started taking it 3 days ago Readings avg 163/102-180/110 Pt does not have a headache currently however she feels foggy Last night she took extra losartan and metoprolol to get it down about an 1-2hrs later she was still having BP 163/102 Pt uses has arm cuff device that has been checked here compared to our manuals in the past Pt has doubled her medication this morning- 10am documented in this encounter Plan of Treatment Not on file documented as of this encounter Visit Diagnoses Not on filedocumented in this encounter Care Teams Payroll And Benefits Specialist Relationship Specialty Start Date End Date Dashawn Cummins MD [address] [place] [address] PCP - General Family Medicine 06/27/23 Yaritza Mueller NP [address] [place] [address] Referring Physician Nurse Practitioner 12/26/22 Yaritza Mueller NP [address] [place] [address] Nurse Practitioner Family Medicine 06/27/23 documented as of this encounter
--- OUTSIDE RECORDS SUMMARY | 2024-12-17 12:48 | XMS_ITS | Encounter Summary ---
Author Organization [facility] Address [address] [place] [address] Care Team Providers Care Instructor Business Education Name Role Phone Dashawn Cummins MD Primary Care Provider [phone] Yaritza Mueller NP Unavailable [phone] Dashawn Cummins MD Primary Care Provider [phone] Yaritza Mueller NP Unavailable [phone] Encounter Details Date Type Department Care Team (Late st Contact Info) Description 05/23/2023 Clinisync Result Encounter [facility] External Department Unsolicited Provider, Generic External Data Social History Tobacco Use Types Packs/Day Years Used Date Smoking Tobacco: Never Assessed Comments Unknown Sex and Gender Information Value Date Recorded Sex Assigned at Not on file Legal Sex Female 8:34 PM EDT Gender Identity Not on file Sexual Orientation Not on file documented as of this encounter Plan of Treatment Not on file documented as of this encounter Procedures Procedure Name Priority Date/Time Associated Diagnosis Comments XR CHEST 1 V 05/23/2023 12:36 PM EST documented in this encounter Results * XR CHEST 1 V (05/23/2023 12:36 PM EST) Anatomical Region Laterality Modality Other 05/23/2023 12:3 6 PM EST Narrative 05/23/2023 12:39 PM EST The [address] [address] XRay Report Signed Patient: Anne Mcfadden MR#: [id number] : 1955 Acct:[id number] Age/Sex: 68 / F ADM Date: Loc: ER Attending Dr: Ordering Physician: Salas Cruz Date of Service: 05/23/23 Procedure(s): XR chest 1V Accession Number(s): [id number] cc: Yaritza Mueller NP; Salas Cruz [address] [address] Patient Name: ANNE MCFADDEN MRN: [facility]:[id number] date: 1955 Sex: F Assigned Patient Location: ER Current Patient Location: ER Accession/Order Number: [id number] Exam Date: 05/23/2023 12:12 Report Date: 05/23/2023 12:36 At the request of: SALAS CRUZ Procedure: XR chest 1V EXAM: XR chest 1V at 1223 hours HISTORY: flu like symptoms for 2 days. COMPARISON: None. TECHNIQUE: AP upright portable chest x-ray FINDINGS: The heart is not enlarged and the vasculature is not distended. No acute infiltrate, effusion or pneumothorax is identified. The osseous structures are grossly intact. XR/XR chest 1V IMPRESSION: No acute infiltrate or evidence of cardiac decompensation. Direct comparison with a previous study would be helpful in determining the chronicity of these findings. Electronically authenticated by: DILSHAD WAGGONER Date: 05/23/2023 12:36 Dictated By: Dilshad Waggoner M.D. Signed By: 05/23/23 1239 DD/ 1236 TD/TT: Pharmacognosist: Procedure Note Radiology, Radiologist, MD - 05/23/2023 [place] [address] XRay Report Signed Patient: Anne Mcfadden LMR#: [id number] : 5Acct:[id number] Age/Sex: 68 / FADM Date: Loc: ER Attending Dr: Ordering Physician: Salas Cruz Date of Service: 05/23/23 Procedure(s): XR chest 1V Accession Number(s): [id number] cc: Yaritza Mueller NP; Salas Cruz The [address] [address] Patient Name: ANNE MCFADDEN MRN: [id number] date: 1955 Sex: F Assigned Patient Location: ER Current Patient Location: ER Accession/Order Number: [id number] Exam Date: 05/23/2023 12:12 Report Date: 05/23/2023 12:36 At the request of: SALAS CRUZ Procedure: XR chest 1V EXAM: XR chest 1V at 1223 hours HISTORY: flu like symptoms for 2 days. COMPARISON: None. TECHNIQUE: AP upright portable chest x-ray FINDINGS: The heart is not enlarged and the vasculature is not distended.No acute infiltrate, effusion or pneumothorax is identified. The osseous structures are grossly intact. XR/XR chest 1V IMPRESSION: No acute infiltrate or evidence of cardiac decompensation. Directcomparison with a previous study would be helpful in determining the chronicity ofthese findings. Electronically authenticated by: DILSHAD WAGGONER Date: 05/23/2023 12:36 Dictated By: Dilshad Waggoner M.D. Signed By:05/23/23 1239 DD/ 1236 TD/TT: Pharmacognosist: Generic External Data Provider [facility] Final Result documented in this encounter Visit Diagnoses Not on filedocumented in this encounter Care Teams Instructor Business Education Relationship Specialty Start Date End Date Dashawn Cummins MD PCP - General Family Medicine 12/26/22 06/26/23 Dashawn Cummins MD [address] [place] [address] PCP - General Family Medicine 06/27/23 Yaritza Mueller NP [address] [place] [address] Referring Physician Nurse Practitioner 12/26/22 Yaritza Mueller NP [address] [place] [phone] Nurse Practitioner Family Medicine 06/27/23 documented as of this encounter
--- OUTSIDE RECORDS SUMMARY | 2024-12-17 12:48 | XMS_ITS | Encounter Summary ---
Author Organization [facility] Address [address] [place] [address] Care Team Providers Care Electrical Prospecting Operator Name Role Phone Bakari Greene DO Primary Care Provider [phone] Source Comments In the event this information is protected by the Federal Confidentiality of Alcohol and Drug AbusePatient Records regulations: The Federal rules restrict any use of the information to criminally investigate or prosecute any alcohol or drug abuse patient.[facility] Encounter Details Date Type Department Care Team (Latest Contact Info) Description 03/26/2018 H&P External-NonCCF Provider, External, PA-C Do not enter address information under generic External Provider. Social History Tobacco Use Types Packs/Day Years Used Date Smoking Tobacco: Some Days Cigarettes Alcohol Use Standard Drinks/Week Comments No 0 (1 standard drink = 0.6 oz pur e alcohol) Comments No Sex and Gender Information Value Date Recorded Sex Assigned at Not on file Legal Sex Female 8:09 AM EST Gender Identity Not on file Sexual Orientation Not on file documented as of this encounter Plan of Treatment Not on file documented as of this encounter Visit Diagnoses Not on filedocumented in this encounter Care Teams Electrical Prospecting Operator Relationship Specialty Start Date End Date Bakari Greene DO PCP - General Family Medicine 03/20/18 documented as of this encounter
--- OUTSIDE RECORDS SUMMARY | 2024-12-17 12:48 | XMS_ITS | Encounter Summary ---
Author Organization [facility] Address [address] [place] [address] Care Team Providers Care Information Security Consultant Name Role Phone Yaritza Mueller GRAIN LOADER Unavailable [phone] Dashawn Cummins MD Primary Care Provider [phone] Yaritza Mueller GRAIN LOADER Unavailable [phone] Encounter Details Date Type Department Care Team (Late st Contact Info) Description 12/14/2024 Telephone [facility] [address] [place] [address] Yaritza Mueller GRAIN LOADER [address] [place] [address] Social History Tobacco Use Types Packs/Day Years [...] on file documented as of this encounter Miscellaneous Notes * Telephone Encounter - Demetra Marcos - 12/14/2024 10:59 AM EDT Agatha has scheduled an appointment with you on December 17, at 3:40 pm for a possible UTI. She wants to know if you would like her to have any testing done prior to her appointment. [phone]. documented in this encounter Plan of Treatment Not on file documented as of this encounter Visit Diagnoses Not on filedocumented in this encounter Care Teams Information Security Consultant Relationship Specialty Start Date End Date Dashawn Cummins MD [address] [place] [address] PCP - General Family Medicine 06/27/23 Yaritza Mueller NP [address] [place] [address] Referring Physician Nurse Practitioner 12/26/22 Yaritza Mueller NP [address] [place] [address] Nurse Practitioner Family Medicine 06/27/23 documented as of this encounter
--- OUTSIDE RECORDS SUMMARY | 2024-12-17 12:48 | XMS_ITS | Clinical Summary ---
Author Organization [facility] Address [address] [place] [address] Care Team Providers Care Video Arcade Manager Name Role Phone Bakari Greene Floyd Primary Care Provider Allergies Active Allergy Reactions Criticality Noted Date Comments Codeine 04/21/2007 Penicillins 04/21/2007 Medications lamoTRIgine (LAMICTAL) 200 mg tablet Take 200 mg by mouth twice daily. 2 03/06/2018 Active QUEtiapine (SEROQUEL) 100 mg tablet TAKE 1 TABLET BY MOUTH EVERYDAY AT BEDTIME 4 01/15/2018 Active venlafaxine ER (EFFEXOR XR) 150 mg 24 hr capsule Take 150 mg by mouth every morning. 2 03/06/2018 Active Active Problems Problem Noted Date Diagnosed Date Pulmonary nodule 04/03/2018 Dyspnea and respiratory abnormalities 04/03/2018 Family History Medical History Relation Comments lung cancer Father MS Mother ovarian cancer Sister Relation Status Comments Father Mother Sister Alive Social History Tobacco Use Types Packs/Day Years Used Date Smoking Tobacco: Former Cigarettes Smokeless Tobacco: Never Comments:quit smoking 2014 Alcohol Use Standard Drinks/Week Comments No 0 (1 standard drink = 0.6 oz pur e alcohol) Comments No Sex and Gender Information Value Date Recorded Sex Assigned at Not on file Legal Sex Female 8:09 AM EST Gender Identity Not on file Sexual Orientation Not on file Last Filed Vital Signs Vital Sign Reading Time Taken Comments Blood Pressure 154/97 04/11/2018 10:40 AM EDT Pulse 81 04/11/2018 10:40 AM EDT Temperature 36.8 C (98.2 F) 04/11/2018 10:40 AM EDT Respiratory Rate 18 04/11/2018 10:40 AM EDT Oxygen Saturation 99% 04/11/2018 10:40 AM EDT Inhaled Oxygen Concentration - - Weight 69.9 kg (154 lb) 04/11/2018 10:40 AM EDT Height 172.7 cm (5' 7.99 ) 04/11/2018 10:40 AM E DT Body Mass Index 23.42 04/11/2018 10:40 AM EDT Plan of Treatment Health Maintenance Due Date Last Done Comments Anxiety Screening 1973 Depression Screening 1973 Hepatitis C Screening 1973 DTaP,Tdap,Td Vaccine (1 - Tdap) [address] Colonography 2000 Cologuard (FIT-DNA) 2000 Fecal Occult Blood 2000 Lipid Screening 2000 Sigmoidoscopy 2000 Pneumococcal Vaccine: 50+ (1 of 1 - PCV) 2005 Shingrix Vaccine (1 of 2) 2005 Colonoscopy 05/06/2008 05/06/2007 Colorectal Cancer Screening 05/06/2008 Diabetes Screening 11/15/2015 11/14/2012 Bone Density Screening 2020 Covid-19 Vaccine ( season) 2024 Advance Directive Discussion 06/10/2024 Influenza Vaccine (#1) 2025 RSV Vaccine (1 - 1-dose 75+ series) 2030 Procedures Procedure Name Priority Date/Time Associated Diagnosis Comments COMPREHENSIVE METABOLIC PANEL STAT 11/14/2012 8:40 PM EDT COLONOSCOPY 05/06/2007 1:17 PM EST from Last 3 Months or Most Recently Relevant to Health Maintenance Results * (ABNORMAL) COMP METABOLIC PANEL (11/14/2012 8:40 PM EDT) Glucose 91 74 - 106 mg/dL [facility] BUN 11 7 - 17 mg/dL [facility] Creatinine 0.71 0.52 - 1.04 mg/dL [facility] eGFR-All Other Races >60 >60 mL/min/1.7 3 2 [facility] eGFR- >60 >60 mL/min/1.7 3 2 [facility] Comment:MDRD calculation use d for eGFR results. Sodium 136(L) 137 - 145 mmol/L [facility] Potassium 4.1 3.5 - 5.1 mmol/L [facility] Chloride 98 98 - 107 mmol/L [facility] CO2 26 22 - 30 mmol/L [facility] Anion Gap 16(H) 0 - 15 [facility] AST 33 14 - 36 U/L [facility] ALT 20 9 - 52 U/L [facility] Alkaline Phosphatase 121 38 - 125 U/L [facility] Bilirubin, Total 0.4 0.2 - 1.3 mg/dL [facility] Calcium 9.9 8.4 - 10.2 mg/dL [facility] Protein, Total 8.1 6.2 - 8.2 g/dL [facility] Albumin 4.7 3.5 - 5.0 g/dL [facility] Blood specimen (specimen) BLOOD SPECIMEN / Unknown 11/14/2012 8:40 PM EDT 11/14/2012 8:51 PM EDT us Wyatt May MD LABORATORY Final Result [facility] [place] [address] * COLONOSCOPY (05/06/2007 1:17 PM EST) Brass Cleaner Introduction: A presents for an elective outpatient Colonoscopy. The patient was seen at [place] [address] . Indications: Screening for personal history of polyps (V12.72). Constipation. (564.00) Clinical History and Physical: The patient's clinical history and physical exam were performed and are documented in the patient's record. Consent: The benefits, risks, alternatives, and personnel associated with the procedure were discussed and informed consent was obtained from the patient. Preparation: Pulse, pulse oximetry and blood pressure were monitored throughout the procedure. ASA Classification: Class 2 - Patient has mild to moderate systemic disturbance that may or may not be related to the disorder requiring surgery. Medications: Versed 6 mg IV Demerol 150 mg IV Benadryl 50 mg IV Rectal Exam: Normal rectal exam. Procedure: The endoscope was passed with ease through the anus under direct visualization and advanced to the cecum, confirmed by appendiceal orifice, cecal strap (saint regis's foot), and ileocecal valve. The scope was withdrawn and the mucosa was carefully examined. Retroflexion was performed. The quality of the preparation was excellent (no or minimal solid stool, only small amounts of clear liquid requiring suctioning). Findings: The colonoscopy examination was completely normal. Unplanned Events: There were no unplanned events. Recommendations: Repeat colonoscopy recommended in 5 years. Impression: Normal colonoscopy (45.23). Performed By: Procedure Codes: [facility] 05/06/2007 1:17 PM EST Narrative [facility] - 05/06/2007 4:38 PM EST Ordered by an unspecified provider. us [facility] Provider SCHEDULED PROCEDURES Final Resul t [facility] [address] [place] [address] from Last 3 Months or Most Recently Relevant to Health Maintenance Insurance MEDICARE Care Teams Video Arcade Manager Relationship Specialty Start Date End Date Bakari Greene DO PCP - General Family Medicine 03/20/18
--- OUTSIDE RECORDS SUMMARY | 2024-12-17 12:48 | XMS_ITS | Encounter Summary ---
Author Organization [facility] Address [address] [place] [address] Care Team Providers Care Cash Management Associate Name Role Phone Yaritza Mueller HEART DOCTOR Unavailable [phone] Dashawn Cummins MD Primary Care Provider [phone] Yaritza Mueller HEART DOCTOR Unavailable [phone] Encounter Details Date Type Department Care Team (Late st Contact Info) Description 12/14/2024 Telephone [facility] [address] [place] [address] Yaritza Mueller HEART DOCTOR [address] [place] [address] Social History Tobacco Use Types Packs/Day Years [...] encounter Miscellaneous Notes * Telephone Encounter - SHEILA SILVA - 12/14/2024 10:11 AM EDT 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 I colts. Although it is been about a year since I have beenin I have been down in [place], but I am up here for a visit this summer and I have some sort of aneye infection. I do not know if it is conjunctivitis or What it is in both eyes, this is like day 4and I do not do not seem to be beating it. And I wondered if I could get eye drops and antibiotic eye drops or something that could help beat this for me and let us see my phone number is [phone]. And again, this is Katarzyna Figueroa. 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 But anyhow, Yaritza has any questions. Please just give me a call and thank you very much. Bennie lilly. documented in this encounter Plan of Treatment Not on file documented as of this encounter Visit Diagnoses Not on filedocumented in this encounter Care Teams Cash Management Associate Relationship Specialty Start Date End Date Dashawn Cummins MD [address] [place] [address] PCP - General Family Medicine 06/27/23 Yaritza Mueller NP [address] [place] [address] Referring Physician Nurse Practitioner 12/26/22 Yaritza Mueller NP [address] [place] [address] Nurse Practitioner Family Medicine 06/27/23 documented as of this encounter
--- OUTSIDE RECORDS SUMMARY | 2024-12-17 12:48 | XMS_ITS | Clinical Summary ---
Author Organization [facility] Address [address] [facility] [place] [address] Care Team Providers Care Soil Science Teacher Name Role Phone Yaritza Mueller NP Unavailable [phone] Dashawn Cummins MD Primary Care Provider [phone] Yaritza Mueller LOW PRESSURE BOILER TENDER Unavailable [phone] Allergies Active Allergy Reactions Criticality Noted Date Comments Codeine 06/27/2023 Penicillins 06/27/2023 Medications LaMICtal 200 MG tablet Take 200 mg by mouth every 12 (twelve) hours Active venlafaxine XR (Effexor XR) 150 MG 24 hr capsule Take 150 mg by mouth in the morning. Active metoprolol tartrate (Lopressor) 50 MG tabletIndications :Primary hypertension Take 1 tablet (50 mg) by mouth in the morning and 1 tablet (50 mg) before bedtime. 180 tablet 1 4 Active SEROquel 100 MG tablet Take 100 mg by mouth at bedtime Active hydroxychloroquin e (Plaquenil) 200 MG tablet Take 200 mg by mouth Daily 4 Active ezetimibe (Zetia) 10 MG tablet Take 10 mg by mouth Daily 5 Active folic acid (Folvite) 1 MG tablet Take 1 mg by mouth Daily 5 Active losartan (Cozaar) 25 MG tablet Take 25 mg by mouth Daily 5 Active Methotrexate, PF, 10 MG/0.4ML solution auto-injector Inject under the skin Active hydroCHLOROthiazi de (HYDRODiuril) 25 MG tabletIndications :Primary hypertension Take 1 tablet (25 mg) by mouth in the morning. 90 tablet 1 4 12/18/19 25 Discontinu ed(Therapy completed) levothyroxine (Synthroid, Levoxyl) 25 MCG tabletIndications :Hypothyroidism (acquired) Take 1 tablet (25 mcg) by mouth in the morning. 90 tablet 1 4 12/18/19 25 Discontinu ed(Therapy completed) Metoprolol-hydroC HLOROthiazide (METOPROLOL-HCTZ ER PO) Metoprolol- HCTZ ER 12/18/19 25 Discontinu ed(Therapy completed) rosuvastatin (Crestor) 20 MG tablet Take 20 mg by mouth at bedtime 5 12/18/19 25 Discontinu ed(Side effects) Active Problems Problem Noted Date Diagnosed Date Primary osteoarthritis of left knee 12/30/2023 Rheumatoid arthritis 12/30/2023 Overview (12/30/2023): Primarily in hands feet and shoulders. Last Assessment & Plan: Referral to rheumatology and refilled Plaquenil current dose Bipolar disorder 12/30/2023 COPD (chronic obstructive pulmonary disease) Overview (12/30/2023): Last Assessment & Plan: Referral to pulmonology for evaluation and treatment. Screening for colon cancer 06/27/2023 Assessment & Plan (06/27/2023 5:52 PM EST): Will do cologuard Screening for breast cancer 06/27/2023 Assessment & Plan (06/27/2023 5:52 PM EST): Order given for pt to call and schedule herself BMI 25.0-25.9,adult 06/27/2023 Hyponatremia 06/27/2023 Assessment & Plan (06/27/2023 5:52 PM EST): Check labs Anemia 06/27/2023 Assessment & Plan (06/27/2023 5:52 PM EST): Recheck labs in 2 weeks, may be related to covid Encounter for annual wellnes s visit (AWV) in Medicare patient 06/27/2023 Assessment & Plan (06/27/2023 5:53 PM EST): Reviewed Ht/Wt/BMI Recommend eye exam yearly Recommend dental exams twice a year Balance work/leisure activities Exercises is recommended most days of the week (appropriate as chronic conditions allow) Follow up yearly and prn Hypothyroidism (acquired) 06/12/2023 Primary hypertension 06/09/2023 Assessment & Plan (06/27/2023 5:51 PM EST): Stable at this time, continue current meds Reviewed labs Pulmonary nodule 04/03/2018 Mixed hyperlipidemia 02/09/2014 Polyp of nasal sinus 12/10/2013 Obstructive sleep apnea syndrome 02/24/2013 Resolved Problems Problem Noted Date Diagnosed Date Resolved Date Bipolar affective disorder in remission 06/27/2023 06/27/2023 Bipolar disorder, current episode mixed, mild 06/27/19 24 12/17/2024 Assessment & Plan (06/27/2023 5:54 PM EST): Continue w dr brunner Encounters Date Type Department Care Team Description 12/17/2024 11:30 AM EDT Office Visit [facility] [address] [place] [address] Yaritza Mueller NP 12/14/2024 Telephone [facility] [address] [place] [address] Yaritza Mueller NP 12/14/2024 Telephone [facility] [address] [place] [address] Yaritza Mueller NP from Last 3 Months Social History Tobacco Use Types Packs/Day Years Used Date Smoking Tobacco: Former Cigarettes Q uit: 1989 Smokeless Tobacco: Never Tobacco Cessation:Counseling Given: Not Answered Alcohol Use Standard Drinks/Week Comments Never 0 [...] (164 lb) 12/17/2024 11:40 AM EDT Height 171.5 cm (5' 7.5 ) 06/27/2023 5:02 PM EST Body Mass Index 25.31 06/27/2023 5:02 PM EST Plan of Treatment Health Maintenance Due Date Last Done Comments CT Colonography 1955 Colonoscopy 1955 FIT 1955 FOBT 1955 Sigmoidoscopy 1955 Pneumococcal Vaccine: 65+ Ye ars (1 of 2 - PCV) 1974 Medicare Annual Wellness (AWV) 06/27/2024 06/27/2023 Mammogram 12/03/2024 12/04/2023, 11/09, 10/26/2022 Colorectal Cancer Screening 07/04/2026 FIT-DNA 07/04/2026 07/04/2023, 03/10, 2019 Influenza Vaccine Discontinued Procedures Procedure Name Priority Date/Time Associated Diagnosis Comments LAB COLOGUARD COLON CANCER SCREEN Routine 07/04/2023 12:00 PM EST Screening for colon cancer from Last 3 Months or Most Recently Relevant to Health Maintenance Results * Cologuard?? colon cancer screening (07/04/2023 12:00 PM EST) NONINV COLON CA DNA+OCC BLD SCRN STL-IMP Negative Negative 07/12/2023 5:30 PM EST [facility] (CLIA #:[id number]) Comment: NEGATIVE TEST RESULT. A negative Cologuard result indicates a low likelihood that a colorectal cancer (CRC) or advanced adenoma (adenomatous polyps with more advanced pre-malignant features) is present. The chance that a person with a negative Cologuard test has a colorectal cancer is less than 1 in 1500 (negative predictive value >99.9%) or has an advanced adenoma is less than 5.3% (negative predictive value 94.7%). These data are based on a prospective cross-sectional study of 10,000 individuals at average risk for colorectal cancer who were screened with both Cologuard and colonoscopy. (Marion Vasquez et al, N Engl J Med 2014;370(14):5294-6897) The normal value (reference range) for this assay is negative. COLOGUARD RE-SCREENING RECOMMENDATION: Periodic colorectal cancer screening is an important part of preventive healthcare for asymptomatic individuals at average risk for colorectal cancer. Following a negative Cologuard result, the [place] Cancer Society and U.S. Multi-Society Task Force screening guidelines recommend a Cologuard re-screening interval of 3 years. References: [place] Cancer Society Guideline for Colorectal Cancer Screening: https://www.cancer.org/cancer/fztrq-ghcbpe-srnqtw/bwvdvcihr-snahcobgv-vnhvzdb/ac s-rec ommendations.html.; Srikanth DK, [place] CHAMBERLAIN, Debra KellyK, Colorectal Cancer Screening: Recommendations for Physicians and Patients from the U.S. Multi-Society Task Force on Colorectal Cancer Screening , Am J Gastroenterology 2017; 112:2445-2855. TEST DESCRIPTION: Composite algorithmic analysis of stool DNA-biomarkers with hemoglobin immunoassay. Quantitative values of individual biomarkers are not reportable and are not associated with individual biomarker result reference ranges. Cologuard is intended for colorectal cancer screening of adults of either sex, 45 years or older, who are at average-risk for colorectal cancer (CRC). Cologuard has been approved for use by the U.S. FDA. The performance of Cologuard was established in a cross sectional study of average-risk adults aged 50-84. Cologuard performance in patients ages 45 to 49 years was estimated by sub-group analysis of near-age groups. Colonoscopies performed for a positive result may find as the most clinically significant lesion: colorectal cancer [4.0%], advanced adenoma (including sessile serrated polyps greater than or equal to 1cm diameter) [20%] or non- advanced adenoma [31%]; or no colorectal neoplasia [45%]. These estimates are derived from a prospective cross-sectional screening study of 10,000 individuals at average risk for colorectal cancer who were screened with both Cologuard and colonoscopy. (Marion Segura al, N Engl J Med 2014;370(14):5598-8330.) Cologuard may produce a false negative or false positive result (no colorectal cancer or precancerous polyp present at colonoscopy follow up). A negative Cologuard test result does not guarantee the absence of CRC or advanced adenoma (pre-cancer). The current Cologuard screening interval is every 3 years. ([place] Cancer Society and U.S. Multi-Society Task Force). Cologuard performance data in a 10,000 patient pivotal study using colonoscopy as the reference method can be accessed at the following location: www.[employer].MySQL/results. Additional description of the Cologuard test process, warnings and precautions can be found at www.cologuard.com. Stool specimen (specimen) 07/04/2023 12:00 PM EST 07/05/2023 8:46 AM EST Yaritza Mueller NP LAB MOLECULAR DIAGNOSTICS ORDER PATRICK Final Result [facility] (CLIA #:[id number]) [address] [address] [phone] [facility] (CLIA #:[id number]) [address] [id number] from Last 3 Months or Most Recently Relevant to [place] [address] MEDICARE [employer] Care Teams Soil Science Teacher Relationship Specialty Start Date End Date Dashawn Cummins MD [address] [place] [address] PCP - General Family Medicine 06/27/23 Yaritza Mueller NP [address] [place] [address] Referring Physician Nurse Practitioner 12/26/22 Yaritza Mueller NP [address] [place] [address] Nurse Practitioner Family Medicine 06/27/23
--- OUTSIDE RECORDS SUMMARY | 2024-12-17 12:48 | XMS_ITS | Encounter Summary ---
Author Organization [facility] Address [address] [place] [address] Care Team Providers Care Seafood Technology Specialist Name Role Phone Dashawn Cummins MD Primary Care Provider [phone] Yaritza Mueller YARDAGE CONTROL OPERATOR Unavailable [phone] Dashawn Cummins MD Primary Care Provider [phone] Yaritza Mueller YARDAGE CONTROL OPERATOR Unavailable [phone] Encounter Details Date Type Department Care Team (Late st Contact Info) Description 05/23/2023 Abstract [facility] [address] [place] [place] [phone] Sedrick Cruz MD [address] [place] [address] Social History Tobacco Use Types Packs/Day Years [...] on filedocumented in this encounter Care Teams Seafood Technology Specialist Relationship Specialty Start Date End Date Dashawn Cummins MD PCP - General Family Medicine 12/26/22 06/26/23 Dashawn Cummins MD [address] [place] [address] PCP - General Family Medicine 06/27/23 Yaritza Mueller NP [address] [place] [address] Referring Physician Nurse Practitioner 12/26/22 Yaritza Mueller NP [address] [place] [address] Nurse Practitioner Family Medicine 06/27/23 documented as of this encounter
--- NOTE | 2024-12-17 12:50 | ECG_ITS ---
The [facility] Test Date: 2024-12-17 Pat Name: ANNE MCFADDEN Department: Room: - Gender: Female Information Technology Manager: : 1955 Requested By: KERRI LUGO Order Number: [id number] Reading MD: LIVAN MCCONNELL Measurements Intervals [place] Rate: 63 P: 60 MT: 190 QRS: 2 QRSD: 134 T: 67 QT: 446 QTc: 452 Interpretive Statements 1100 Sinus rhythm 2550 Left bundle branch block 9150 abnormal ECG Compared to ECG 07/11/2022 09:16:16 No significant changes Electronically Signed On 12-22-2024 13:04:55 EDT by LIVAN MCCONNELL
--- NOTE | 2024-12-17 12:50 | XR_ITS ---
The [place] [id number] Patient Name: ANNE MCFADDEN MRN: [id number] date: 1955 Sex: F Assigned Patient Location: ED.MAIN Current Patient Location: ED.MAIN Accession/Order Number: [id number] Exam Date: 12/17/2024 13:52 Report Date: 12/17/2024 13:53 At the request of: FELISA SIMON MD Procedure: XR chest 1V XR chest 1V 12/17/2024 1:43 PM SIGNS AND SYMPTOMS: Headache, hypertension, chest tightness, weakness, shortness of breath PROTOCOL: Frontal radiograph of the chest COMPARISON: 05/23/2023 FINDINGS: The trachea is midline. The heart and mediastinal structures are within normal limits. The lung parenchyma is clear. The bony thorax is intact. XR/XR chest 1V IMPRESSION: No acute cardiopulmonary pathology. Impression dictated by: Tim Perdue M.D. 12/17/2024 1:53 PM Dictation Location: [place] [address] Electronically authenticated by: [id number] Y Date: 12/17/2024 13:53
--- NOTE | 2024-12-17 12:51 | CT_ITS ---
The [address] [address] Patient Name: ANNE MCFADDEN MRN: [id number] date: 1955 Sex: F Assigned Patient Location: ED.MAIN Current Patient Location: ED.MAIN Accession/Order Number: [id number] Exam Date: 12/17/2024 13:56 Report Date: 12/17/2024 13:58 At the request of: FELISA SIMON MD Procedure: CT head/brain wo con CT head/brain wo con 12/17/2024 1:43 PM SIGNS AND SYMPTOMS: Headache, hypertension, chest tightness and weakness with shortness of breath TECHNIQUE:Multi-detector CT axial slices of the brain were obtained without IV contrast. CT was performed with one or more of the following dose reduction techniques: Automated exposure control, adjustment of the mA and/or kV according to patient size, or use of iterative reconstruction technique. COMPARISON: None. FINDINGS: There is no shift of the midline structures, acute intracranial bleeding, mass effects, or evidence of acute ischemia. There is mild age-related cortical atrophy. The ventricular system is normal in size. The brainstem and the cerebellum are unremarkable. The visualized intraorbital contents, the visualized paranasal sinuses, and the infratemporal soft tissues show no acute abnormality. The osseous structures in the skull base and the calvarium show no abnormality. CT/CT head/brain wo con IMPRESSION: No acute intracranial pathology. Mild age-related cortical atrophy is noted. Impression dictated by: Tim Perdue M.D. 12/17/2024 1:58 PM Dictation Location: [place] [address] Electronically authenticated by: [id number] Y Date: 12/17/2024 13:58
--- NOTE | 2024-12-17 12:53 | ED.GENADUL1 ---
HPI HPI - General Adult General Chief complaint: Chest Pain Stated complaint: SENT BY DR PARISH KAMINSKI TESTS DONE Time Seen by Provider: 12/17/24 12:34 Source: patient Mode of arrival: walk-in History of Present Illness HPI narrative: 69-year-old female presents for elevated blood pressure. She is also experienced symptoms of dizziness and headache. She has a history of hypertension and for the past 3 days she doubled up both the morning and the evening doses of her blood pressure medicine but it was still running a bit high and she saw her nurse practitioner today who sent her to the emergency department. No localized weakness or fever or vomiting. The headache was not of sudden onset. Related Data Home Medications ?Medication ?Instructions ?Recorded ?Confirmed ezetimibe 10 mg tablet 10 mg PO DAILY 12/17/24 12/17/24 lamotrigine 200 mg tablet 200 mg PO BID 12/17/24 12/17/24 (Lamictal) losartan 50 mg tablet (Cozaar) 25 mg PO DAILY 12/17/24 12/17/24 metoprolol tartrate 50 mg tablet 50 mg PO BID 12/17/24 12/17/24 (Lopressor) quetiapine 50 mg tablet (Seroquel) 50 mg PO DAILY 12/17/24 12/17/24 venlafaxine 100 mg tablet 100 mg PO DAILY 12/17/24 12/17/24 venlafaxine 50 mg tablet 50 mg PO DAILY 12/17/24 12/17/24 Allergies Allergy/AdvReac Type Severity Reaction Status Date / Time Penicillins AdvReac Intermediate Rash Verified 12/17/24 12:40 Opioid HPI Opioid Management Most Recent Opioid Data: Last Pain Scale 4 Today, 13:17 Review of Systems ROS Narrative A ten point review of systems is negative except as noted above. PFSH PFSH Social History Smoking status: Never smoker Little interest or pleasure in doing things: not at all Feeling down, depressed, or hopeless: not at all Exam Narrative Exam Narrative: Nurses note and vital signs reviewed and patient is not hypoxic. General: The patient appears well and in no apparent distress. Patient is resting comfortably on cart. Skin: Warm, dry, no pallor noted. There is no rash noted. Head: Normocephalic, atraumatic Eye: Normal conjunctiva, no drainage Ears, Nose, Mouth, and Throat: oral mucosa is moist. Nares patent. Cardiovascular: Regular Rate and Rhythm Respiratory: Patient is in no distress, no accessory muscle use, lungs are clear to auscultation, no wheezing, rales or rhonchi Back: non-tender GI: Soft and nontender Musculoskeletal: The patient has no evidence of calf tenderness, no pitting edema, symmetrical pulses noted bilaterally Neurological: A&O, normal speech; upper and lower extremity strength 5 out of 5 and symmetric. Cranial nerves II through XII intact. Neck supple. Psychiatric: Cooperative Constitutional Vital Signs, click to edit/add: Last Vital Signs Temp 97.6 F 12/17/24 12:45 Pulse 60 12/17/24 15:10 Resp 16 12/17/24 15:10 BP 151/94 H 12/17/24 15:00 Pulse Ox 98 12/17/24 15:10 O2 Del Method Room Air 12/17/24 12:45 Course Vital Signs Vital signs: Vital Signs Pulse Oximetry 100 12/17/24 12:41 Temperature 97.6 F 12/17/24 12:45 Pulse Rate 60 12/17/24 15:10 Respiratory Rate 16 12/17/24 15:10 Blood Pressure 151/94 H 12/17/24 15:00 Pulse Oximetry 98 12/17/24 15:10 Oxygen Delivery Method Room Air 12/17/24 12:45 Medical Decision Making [facility] Narrative Medical decision making narrative: Her workup including CT brain is negative. Blood pressures have been 150s over 90s range. Case discussed with the patient's nurse practitioner and the patient will be discharged home, follow-up in the office. Treatment diagnosis and follow-up were discussed with the patient. Lab Data Labs: Lab Results 12/17/24 Range/Units 12:55 WBC 6.7 (4.0-11.0) 10^3/uL RBC 3.80 L (4.20-5.40) 10^6/uL Hgb 12.3 (12.0-16.0) g/dL Hct 35.7 L (36.0-48.0) % MCV 93.9 (81.0-99.0) fL MCH 32.4 (26.7-34.0) pg MCHC 34.5 (29.9-35.2) g/dL RDW 13.2 (11.0-15.0) % Plt Count 374 (150-450) 10^3/uL MPV 8.5 L (9.5-13.5) fL Neut % (Auto) 64.0 (43.0-75.0) % Lymph % (Auto) 22.5 (20.5-60.0) % Lyon % (Auto) 7.9 (1.7-12.0) % Eos % (Auto) 3.7 (0.9-7.0) % Baso % (Auto) 0.6 (0.2-2.0) % Neut # (Auto) 4.3 (1.4-6.5) 10^3/uL Lymph # (Auto) 1.5 (1.2-3.8) 10^3/uL Lyon # (Auto) 0.5 (0.3-0.8) 10^3/uL Eos # (Auto) 0.3 (0.0-0.7) 10^3/uL Baso # (Auto) 0.0 (0.0-0.1) 10^3/uL Abs Immat Gran (auto) 0.09 H (0.00-0.03) 10^3/uL Imm/Tot Granulo (auto) 1.3 H (0.0-0.5) % Sodium 136 (136-145) mmol/L Potassium 4.6 (3.5-5.1) mmol/L Chloride 99 (98-107) mmol/L Carbon Dioxide 31.4 (21.0-32.0) mmol/L Anion Gap 10.2 BUN 15.0 (7.0-18.0) mg/dL Creatinine 0.74 (0.55-1.02) mg/dL Est GFR ( Amer) >60 (>=60 mL/min/1.73m^2) Est GFR (Non-Af Amer) >60 (>=60 mL/min/1.73m^2) BUN/Creatinine Ratio 20.3 Glucose 93 (74-106) mg/dL Calcium 9.7 (8.5-10.1) mg/dL Troponin I High Sens 4.5 (4.0-51.3) pg/mL Imaging Data Chest x-ray: Radiologist's impression: ITS Impressions Chest X-Ray 12/17/24 12:50 IMPRESSION: No acute cardiopulmonary pathology. Impression dictated by: Tim Perdue M.D. 12/17/2024 1:53 PM Dictation Location: [facility] Electronically authenticated by: [id number] Y Date: 12/17/2024 13:[address] 12/17/24 12:51 IMPRESSION: No acute intracranial pathology. Mild age-related cortical atrophy is noted. Impression dictated by: Tim Perdue M.D. 12/17/2024 1:58 PM Dictation Location: [facility] Electronically authenticated by: [id number] Y Date: 12/17/2024 13:58 ECG Data Attestation: I personally reviewed and interpreted this ECG as follows: (EKG on my interpretation shows sinus rhythm with a rate of 63 and a left bundle branch block) Discharge Plan Discharge Chief Complaint: Chest Pain Clinical Impression: Hypertension Patient Disposition: Home, Self-Care Time of Disposition Decision: 15:40 Condition: Good Mode of Transportation: Private Vehicle Prescriptions / Home Meds: No Action metoprolol tartrate [Lopressor] 50 mg tablet 50 mg PO BID losartan [Cozaar] 50 mg tablet 25 mg PO DAILY ezetimibe 10 mg tablet 10 mg PO DAILY venlafaxine 100 mg tablet 100 mg PO DAILY venlafaxine 50 mg tablet 50 mg PO DAILY lamotrigine [Lamictal] 200 mg tablet 200 mg PO BID quetiapine [Seroquel] 50 mg tablet 50 mg PO DAILY Print Language: Z[place]ian Instructions: Hypertension (ED) Additional Instructions: Yaritza Mueller will contact you for follow-up. Referrals: Yaritza Mueller NP [Primary Care Provider, Family Practice] - 1 week
[2024-12-17 13:05] LABS: Hematocrit 35.7 % (36.0-48.0); Hemoglobin 12.3 g/dL (12.0-16.0); Immature Granulocytes Abs Auto 0.09 10^3/uL (0.00-0.03); Immature Granulocytes Pct Auto 1.3 % (0.0-0.5); Lymphocytes Absolute Auto 1.5 10^3/uL (1.2-3.8); Mean Corpuscular HGB Conc 34.5 g/dL (29.9-35.2); Mean Corpuscular Hemoglobin 32.4 pg (26.7-34.0); Mean Corpuscular Volume 93.9 fL (81.0-99.0); Platelet Count 374 10^3/uL (150-450); Red Blood Count 3.80 10^6/uL (4.20-5.40); White Blood Count 6.7 10^3/uL (4.0-11.0)
[2024-12-17 13:22] LABS: Anion Gap 10.2; Blood Urea Nitrogen 15.0 mg/dL (7.0-18.0); Calcium 9.7 mg/dL (8.5-10.1); Carbon Dioxide 31.4 mmol/L (21.0-32.0); Chloride 99 mmol/L (98-107); Estimated GFR (African America >60 (>=60 mL/min/1.73m^2); Estimated GFR (Non-African Ame >60 (>=60 mL/min/1.73m^2); Glucose 93 mg/dL (74-106); Potassium 4.6 mmol/L (3.5-5.1); Sodium 136 mmol/L (136-145)
== END 2024-12-17 15:55 | disposition home or self-care (01) ==
PROVIDERS: Emergency Provider Emergency Medicine; PCP Nurse Practitioner
DX: I10 Essential (primary) hypertension (principal); R51.9 Headache, unspecified; R42 Dizziness and giddiness
CPT/HCPCS: 36415; 70450; 71045; 80048; 84484; 85025; 93005; 99285

== ENCOUNTER 2024-12-23 15:53 | Outpatient (OUT) | payer MEDICARE, OTHER, SELFPAY ==
--- NOTE | 2024-12-23 16:00 | CA_ITS ---
Patient Name: ANNE MCFADDEN MR#: [id number] : 1955 Exam Date: 12/23/2024 Ordering Doctor: MATT LUGO CNP ECHOCARDIOGRAM REPORT PROCEDURE: CA ECHO DOPPLER COMPLETE INDICATIONS: Chest pain, dyspnea, hypertension COMPARISON: None. DESCRIPTION: COMPLETE ECHOCARDIOGRAM Real-time transthoracic echocardiography with 2D, M-mode, spectral and color flow Doppler performed. QUALITY: Technical quality was good. LEFT VENTRICLE: Normal chamber size. Normal left ventricular wall thickness. LV EF: Global left ventricular systolic function is normal; visually estimated ejection fraction is 55 to 60%. Abnormal septal motion; likely related to underlying bundle branch block. DIASTOLIC: Normal diastolic function. ATRIAL SEPTUM: Visually appears intact. LEFT ATRIUM: Normal chamber size. RIGHT ATRIUM: Mild dilatation. RIGHT VENTRICLE: Normal chamber size. Normal right ventricular systolic function. TRICUSPID VALVE: Normal mobility and thickness. No stenosis with mild regurgitation. No evidence of pulmonary hypertension. RVSP 31 mmHg MITRAL VALVE: Normal mobility and thickness. No evidence of mitral valve stenosis. Mild mitral annular calcification. Mild mitral regurgitation. AORTIC VALVE: Normal trileaflet appearance. Mildly calcified aortic valve. Normal leaflet mobility. No evidence of aortic valve stenosis. No aortic regurgitation. AORTIC ROOT: Normal diameter and appearance. Ascending aorta is normal in size. PULMONIC VALVE: Normal thickness and mobility. No stenosis. No regurgitation. PERICARDIUM: No evidence of pericardial effusion. IVC: Collapses with inspiration. CONCLUSION: 1. Global left ventricular systolic function is normal; visually estimated ejection fraction is 55 to 60% 2. Normal right ventricular size and systolic function 3. The right atrium is mildly dilated 4. Mild tricuspid regurgitation 5. Mild mitral regurgitation Adult Echocardiography Procedure Report Left Ventricle LVEDD (3.7 - 5.6 cm): 3.89 cm LVESD (2.2 - 4.0 cm): 2.88 cm LVIVS thickness (0.6 - 1.2 cm): 1.17 cm LVPW thickness (0.5 - 1.0 cm): 0.88 cm e': 0.11 m/s E - e': 7.32 LVOT Max Gradient: 2.19 mm[Hg] LVOT Area (cm2): 0.74 m/s Peak Velocity (LVOT): 0.74 m/s Mean Velocity (LVOT): 0.51 m/s LVOT Diameter 2.27 cm Left Ventricular Ejection Fraction: 67.63 % Left Atrium LA Volume Index (2D A2C): 33.10 ml/m2 Left Atrium Systolic Dimension: 3.87 cm Mitral Valve MV E to A Ratio: 1 MV Max Gradient: Normal 7 to MV Mean Gradient: Mitral Valve A-Wave Peak Velocity: 0.79 m/s Mitral Valve E-Wave Peak Velocity: 0.79 m/s Cardiovascular Orifice Area: Right Ventricle RV Internal Diastolic Dimension: Aorta AO Root Diam: 3.49 cm Ascending Ao Diam: 3.15 cm Aortic Valve AoV Area (Peak J Carlos): 2.44 cm2, 2.44 cm2 AoV Area (VTI): 2.36 cm2, 2.36 cm2 Deceleration [place]: Pressure Half-Time: Peak Velocity(Antegrade Flow): 1.23 m/s Peak Gradient(Antegrade Flow): 6.03 mm[Hg] Mean Velocity(Antegrade Flow): 0.89 m/s Mean Gradient(Antegrade Flow): 3.54 mm[Hg] Velocity Time Integral: 32.79 cm Tricuspid Valve Peak Velocity (Regurgitant Flow): 2.65 m/s Peak Velocity: Pulmonic Valve Mean Gradient: Mean Velocity: Peak Velocity: Peak Gradient: 3.17 mm[Hg], 2.83 mm[Hg] Right Atrium Right Atrium Systolic Pressure: 63.13 ml, 63.13 ml Dictated by: Magi De La Cruz M.D. on 12/23/2024 at 18:17 Approved by: Magi De La Cruz M.D. on 12/23/2024 at 18:20
== END 2024-12-23 15:54 | disposition home or self-care (01) ==
LOC: CARD 15:56
PROVIDERS: PCP Nurse Practitioner; Visit Provider Nurse Practitioner
DX: R07.9 Chest pain, unspecified (principal); I10 Essential (primary) hypertension
CPT/HCPCS: 93306

== ENCOUNTER 2024-12-25 08:22 | Outpatient (OUT) | payer MEDICARE, OTHER, SELFPAY ==
--- NOTE | 2024-12-25 08:30 | NM_ITS ---
Patient Name: ANNE MCFADDEN MR#: [id number] : 1955 Exam Date: 12/25/2024 Ordering Doctor: MATT LUGO CNP RADIOLOGY REPORT PROCEDURE: NM JHON PERF SPECT REST STR COMPARISON: None. INDICATIONS: HYPERTENSION, CHEST PAIN TECHNIQUE: Exam Description: Stress/Rest one day protocol gated SPECT Rest Imagin.2 mCi Tc-99m Cardiolite IV on 12/25/2024 Stress Imaging 29.8 mCi Tc-99m Cardiolite IV on 12/25/2024 Exercise Protocol: Maxime Heart Rate (bpm): Rest: 61 Max: 131 PMHR: 86 Blood Pressure: Rest: 140/82 Max: 166/84 Exercise Time: Minutes: 3 Seconds: 29 Stage Reached: Stage: 2 Mets 5.4 Symptoms: Rest and peak stress ECG findings were pending and the EKG portion of the study was pending per attending physician [facility] . For more details please see separate cardiac stress test report. FINDINGS: QUALITY OF STUDY: Good PERFUSION DEFECT: LOCATION: Anterior SIZE: Medium SEVERITY: Mild TYPE: Fixed with LV with adequate thickening and contractility consistent with breast attenuation artifact WALL MOTION: Normal LV SIZE: 91 mL. TID / TCD: 1.0 LVEF: Calculated EF 57%. SUMMARY: Normal myocardial perfusion imaging study CONCLUSION: Normal myocardial perfusion stress study without evidence of ischemia or infarction Normal left ventricle systolic function, ejection fraction 57% No transient ischemic dilatation, TID 1.0 EKG portion of stress test is reported separately Dictated by: Janet Rebollar MD on 12/27/2024 at 18:35 Approved by: Janet Rebollar MD on 12/27/2024 at 18:41
--- OUTSIDE RECORDS SUMMARY | 2024-12-25 08:43 | XMS_ITS | CCD ---
Author Organization [facility] Care Team Providers Care Helicopter Crew Chief Name Role Phone FANKRYSTIN, VICTORIA E Unavailable Unavailable PAVLOCK, MAX ROBERTO Unavailable Unavailable FANNING, VICTORIA E Unavailable Unavailable PAVLOCK, MAX ROBERTO Unavailable Unavailable PAN SANDERSON Primary Care Physician Nori Odonnell Unavailable Unavailable AICHHOLZ, YARITZA J Primary Care Physician [phone] Wilmer Patino Unavailable Pocos, DO Cas Joe [...] Pocos, DO Cas Joe Attending Unavailable AICHHOLZ, BROADCAST METEOROLOGIST YARITZA Consulting Unavailable AICHHOLZ, BROADCAST METEOROLOGIST YARITZA Primary Care Unavailable AICHHOLZ, BROADCAST METEOROLOGIST YARITZA Admitting Unavailable AICHHOLZ, BROADCAST METEOROLOGIST YARITZA Attending Unavailable AICHHOLZ, BROADCAST METEOROLOGIST YARITZA Consulting Unavailable AICHHOLZ, BROADCAST METEOROLOGIST YARITZA Primary Care Unavailable AICHHOLZ, BROADCAST METEOROLOGIST YARITAZ Admitting Unavailable AICHHOLZ, BROADCAST METEOROLOGIST YARITZA Attending Unavailable AICHHOLZ, BROADCAST METEOROLOGIST YARITZA Consulting Unavailable AICHHOLZ, BROADCAST METEOROLOGIST YARITZA Primary Care Unavailable AICHHOLZ, BROADCAST METEOROLOGIST YARITZA Admitting Unavailable AICHHOLZ, BROADCAST METEOROLOGIST YARITZA Attending Unavailable AICHHOLZ, BROADCAST METEOROLOGIST YARITZA Consulting Unavailable AICHHOLZ, BROADCAST METEOROLOGIST YARITZA Primary Care Unavailable AICHHOLZ, BROADCAST METEOROLOGIST YARITZA Admitting Unavailable AICHHOLZ, BROADCAST METEOROLOGIST YARITZA Attending Unavailable AICHHOLZ, BROADCAST METEOROLOGIST YARITZA Primary Care Unavailable DR CAS BAIG V Consulting Unavailable AICHHOLZ, BROADCAST METEOROLOGIST YARITZA Admitting Unavailable AICHHOLZ, BROADCAST METEOROLOGIST YARITZA Attending Unavailable AICHHOLZ, BROADCAST METEOROLOGIST YARITZA Consulting Unavailable Aichholz FENCE MAKING MACHINE OPERATOR, Yaritza Unavailable Dashawn Cummins MD Primary Care Provider Aichholz FENCE MAKING MACHINE OPERATOR, Yaritza Unavailable URVASHIHAYLEYDavi, YARITZA Attending Unavailable Allergies Allergy Classification Reported Allergen(s) Allergy Type Date of Onset Reaction(s) Facility (13 sources) Codeine; Translations: [CODEINE] Drug Allergy 7 nausea, vomiting [facility] Repository (7 sources) Penicillins; Translations: [PENICILLINS] Propensity to adverse reactions to drug (disorder) 7 [facility] Repository (5 sources) Penicillin; Translations: [penicillin] Drug Allergy [facility] (1 source) Penicillin G Drug Allergy [facility] Other Medications Current Medications Medication Drug Class(es) Dates Sig (Normalized) Sig (Original) ashwaganda/dev root (3 sources) Start: 09-15-2021 ashwaganda/dev root ashwaganda/dev root, Oral, Daily Start Date: 09/15/21 Status: Ordered aspirin 81 mg delayed release oral tablet (2 sources) Platelet Aggregation Inhibitor, Nonsteroidal Anti-inflammatory Drug Start: 09-19-2021 Aspirin 81 mg Tab-EC 81 mg = 1 tab(s), Oral, BIDPC, # 60 tab(s), Refills(s) 0, Pharmacy: [address], [address], cm, 09/18/21 6:21:00 EDT, Height/Length Dosing, 73, kg, 09/18/21 6:21:00 EDT, Weight Dosing Start Date: 09/19/21 Status: Ordered Start: 09-19-2021 Aspirin 81 mg Tab-EC 81 mg = 1 tab(s), Oral, BIDPC, # 60 tab(s), Refills(s) 0, Pharmacy: [address], [address], cm, 09/18/21 6:21:00 EDT, Height/Length [...] constipation, # 40 cap(s), Refills(s) 0, Pharmacy: [facility] [address], [address], cm, 09/18/21 6:21:00 EDT, Height/Length Dosing, 73, kg, 09/18/21 6:21:00 EDT, Weight Dosing Start Date: 09/19/21 Status: Ordered doxycycline monohydrate 100 mg oral capsule (1 source) Tetracycline-cla ss Drug Start: 05-02-2021 take 1 capsule by mouth every twelve hours Doxycycline Monohydrate 100 MG 1 capsule Orally every 12 hrs for 10 days Apr, Active ezetimibe 10 mg oral tablet (5 sources) Dietary Cholesterol Absorption Inhibitor Start: 09-24-2024 take 1 tablet by mouth once daily ezetimibe (Zetia) 10 MG tablet Take 10 mg by mouth Daily 09/24/2024 Active Fish Oils (3 sources) Start: 09-15-2021 take 1000 mg by mouth once daily Fish Oil 1,000 mg, Oral, Daily, Refill(s) 0, Prophylaxis Start Date: 09/15/21 Status: Ordered folic acid 1 mg oral tablet (5 sources) Start: 06-30-2024 take 1 tablet by mouth once daily folic acid (Folvite) 1 MG tablet Take 1 mg by mouth Daily 06/30/2024 Active hydroCHLOROthiazide 25 mg oral tablet (2 sources) Thiazide Diuretic Start: 06-27-2023 End: 12-17-2024 take 1 tablet by mouth in the morning hydroCHLOROthiazide (HYDRODiuril) 25 MG tablet Indications: Primary hypertension Take 1 tablet (25 mg) by mouth in the morning. 90 tablet 1 06/27/2023 12/17/2024 Discontinued (Therapy completed) Hydrochlorothiazide-25 mg 25 mg (1 source) take 1 tablet by mouth once daily Hydrochlorothiazide-2 5 mg 25 mg 1 tablet Orally Once a day Active hydroxychloroquine sulfate 200 mg oral tablet (10 sources) Antimalarial, Antirheumatic Agent Start: 11-23-2023 take 1 tablet by mouth once daily hydroxychloroquine (Plaquenil) 200 MG tablet Take 200 mg by mouth Daily 11/23/2023 Active Start: 09-15-2021 take 1 tablet by emanuel th once daily hydroxychloroquine 200 mg Tab 200 mg = 1 tab(s), Oral, Daily, Refills(s) 0, Arthritis Start Date: 09/15/21 Status: Ordered Plaquenil 200 MG as directed Orally Active lamoTRIgine 200 mg oral tablet (10 sources) Mood Stabilizer, Anti-epileptic Agent Start: 09-15-2021 take 1 tablet by mouth twice daily lamotrigine 200 mg Tab 200 mg = 1 tab(s), Oral, BID, Refills(s) 0, Other (see comment) Start Date: 09/15/21 Status: Ordered take 1 tablet by mouth every twe lve hours LaMICtal 200 MG tablet Take 200 mg by mouth every 12 (twelve) hours Active LaMICtal 200 MG Orally bid for 30 day(s) Active levothyroxine sodium 0.025 mg oral tablet (2 sources) l-Thyroxine Start: 06-27-2023 End: 12-17-2024 take 1 tablet by mouth in the morning levothyroxine (Synthroid, Levoxyl) 25 MCG tablet Indications: Hypothyroidism (acquired) Take 1 tablet (25 mcg) by mouth in the morning. 90 tablet 1 06/27/2023 12/17/2024 Discontinued (Therapy completed) losartan potassium 25 mg oral tablet (5 sources) Angiotensin 2 Receptor Esau Start: 09-07-2024 take 1 tablet by mouth once daily losartan (Cozaar) 25 MG tablet Take 25 mg by mouth Daily 09/07/2024 Active magnesium hydroxide 80 mg/ml oral suspension [...] Refill(s) 0 Start Date: 09/20/21 Status: Ordered 0.4 ml methotrexate 25 mg/ml auto-injector (5 sources) Folate Analog Metabolic Inhibitor Methotrexate, PF, 10 MG/0.4ML solution auto-injector Inject under the skin Active metoprolol tartrate 50 mg oral tablet (11 sources) beta-Adrenergic Esau Start: take 1 tablet by mouth in the morning metoprolol tartrate (Lopressor) 50 MG tablet Indications: Primary hypertension Take 1 tablet (50 mg) by mouth in the morning and 1 tablet (50 mg) before bedtime. 180 tablet 1 06/27/2023 Active Start: 09-21-2021 End: 09-21-2021 Lopressor 25 mg [...] with food Orally Twice a day Active Metoprolol-hydroCHLOROthiazi de (METOPROLOL-HCTZ ER PO) (2 sources) End: 12-17-2024 Metoprolol-hydroCHLOROthiazi de (METOPROLOL-HCTZ ER PO) Metoprolol-HCTZ ER 12/17/2024 Discontinued (Therapy completed) oxyCODONE hydrochloride 5 mg oral tablet (2 sources) Opioid Agonis t Start: 09-19-2021 take 1 tablet by mouth every six hours as needed for pain and pain, then take 1-2 tablet s by mouth every four to six hours as needed for pain and pain, then take 1 tablet by mouth every six hours as needed for pain and pain oxyCODONE 5 mg Tab 5 mg = 1 tab(s), Oral, q6hr, 1-2 po q4-6 hrs prn pain Dx: M17.12, Z96.652 Duration: 7days Disregard si po q6hr prn pain, # 40 tab(s), Refills(s) 0, Pharmacy: [address], [address], cm, 09/18/21 6:21:00 EDT, Height/Length Dosing, 73, k... Start Date: 09/19/21 Status: Ordered QUEtiapine 25 mg oral tablet (9 sources) Atypic al Antips ychoti c Start: 09-19-2021 SEROquel 25 mg Tab Refills(s ) 0 Start Date: 09/19/21 Status: Ordered take 1 tablet by mouth at bedtim e SEROquel 100 MG tablet Take 100 mg by mouth at bedtime Active SEROquel Active rosuvastatin calcium 20 mg oral tablet (2 sources) HMG-CoA Reductase Inhibitor Start: 08-27-2024 End: 12-17-2024 take 1 tablet by mouth at bedtime rosuvastatin (Crestor) 20 MG tablet Take 20 mg by mouth at bedtime 08/27/2024 12/17/2024 Discontinued (Side effects) turmeric extract 500 mg oral capsule (3 sources) Start: 09-15-2021 take 1 capsule by mouth once daily turmeric 500 mg oral capsule 500 mg = 1 cap(s), Oral, Daily, Refills(s) 0, Prophylaxis Start Date: 09/15/21 Status: Ordered 24 hr venlafaxine 150 mg extended release oral capsule (10 sources) Serotonin and Norepinephrine Reuptake Inhibitor Start: 09-15-2021 take 1 capsule by mouth once daily venlafaxine 150 mg Cap-ER 150 mg = 1 cap(s), Oral, Daily, Refills(s) 0, Other (see comment) Start Date: 09/15/21 Status: Ordered Start: 09-15-2021 take 1 capsule by [facility] once daily venlafaxine 150 mg Cap-ER 150 mg = 1 cap(s), Oral, Daily, Refills(s) 0, Other (see comment) Start Date: 09/15/21 Status: Ordered take 1 capsule by [facility] every twenty-four hours in the morning venlafaxine XR (Effexor XR) 150 MG 24 hr capsule Take 150 mg by mouth in the morning. Active Effexor XR 225 M G Orally once [...] 0, Prophylaxis Start Date: 09/15/21 Status: Ordered Problems Active Problems Problem Classification Problem Date Documented Date Episodic/Chronic Chronic obstructive pulmonary disease and bronchiectasis (6 sources) Chronic obstructive lung disease; Translations: [Chronic obstructive pulmonary disease, unspecified] Onset: 12-30-2023 12-30-2023 Chronic Deficiency and other anemia (1 source) Iron deficiency anemia; Translations: [Iron deficiency anemia, unspecified] Onset: 09-21-2021 Episodic Disorders of lipid metabolism (10 sources) Mixed hyperlipidemia; Translations: [Mixed hyperlipidemia] Onset: 02-09-2014 12-17-2024 Chronic Esophageal disorders (1 source) Gastroesophageal reflux disease without esophagitis; Translations: [Gastro-esophageal reflux disease without esophagitis] Onset: 09-21-2021 Chronic Essential hypertension (19 sources) Hypertensive disorder; Translations: [Essential hypertension] Onset: 09-20-2021 09-15-2021 Chronic Mood disorders (20 sources) Bipolar disorder; Translations: [Bipolar disorder, unspecified] Onset: 09-20-2021 Resolved: 12-17-2024 09-15-2021 Chronic Nonspecific chest pain (11 sources) Chest pain; Translations: [Chest pain, unspecified] Onset: 12-17-2024 12-17-2024 Episodic Osteoarthritis (9 sources) Arthritis; Translations: [Osteoarthritis of left knee joint] Onset: 12-30-2023 09-15-2021 Chronic Other connective tissue disease (1 source) Artificial knee joint present; Translations: [Presence of left artificial knee joint] Onset: 09-20-2021 Chronic Other non-traumatic joint disorders (1 source) Instability of joint of left knee; Translations: [Other instability, left knee] Episodic Residual codes; unclassified (6 sources) Obstructive sleep apnea syndrome; Translations: [Obstructive sleep apnea (adult) (pediatric)] Onset: 02-24-2013 12-30-2023 Chronic Residual codes; unclassified (1 source) Procedure carried [...] HX MALIGNANT NEOPLASM OVARY] Onset: 10-28-2022 Episodic Rheumatoid arthritis and related disease (6 sources) Rheumatoid arthritis; Translations: [Rheumatoid arthritis, unspecified] Onset: 12-30-2023 12-30-2023 Chronic Thyroid disorders (10 sources) Hypothyroidism, unspecified; Translations: [Acquired hypothyroidism] Onset: 05-18-2023 Chronic Unclassified (3 sources) Pain of joint of knee 09-15-2021 Past or Other Problems Problem Classification Problem Date Documented Da te Episodic/Chronic Deficiency and other anemia (6 sources) Anemia; Translations: [Anemia, unspecified] Onset: 06-27-2023 06-27-2023 Episodic Fluid and electrolyte disorders (7 sources) Hypo-osmolality and or hyponatremia; Translations: [Hypo-osmolality and hyponatremia] Onset: 09-21-2021 Episodic Immunizations and screening for infectious disease (1 source) Contact with and (suspected) exposure to other viral communicable diseases Onset: 05-02-2021 Resolved: 05-02-2021 Episodic Other lower respiratory disease (1 source) Other specified respiratory disorders Onset: 05-02-2021 Resolved: 05-02-2021 Episodic Other lower respiratory disease (6 sources) Nodule of lung; Translations: [Solitary pulmonary nodule] Onset: 04-03-2018 12-30-2023 Episodic Other nutritional; endocrine; and metabolic disorders (6 sources) Overweight in adulthood with body mass index of 25 or more but less than 30; Translations: [Body mass index (BMI) 25.0-25.9, adult] Onset: 06-27-2023 06-27-2023 Episodic Other screening for suspected conditions (not mental disorders or infectious disease) (20 sources) Encounter for screening mammogram for malignant neoplasm of breast; Translations: [Abnormal results of thyroid function studies] Onset: 07-19-2022 Episodic Other upper respiratory disease (6 sources) Polyp of nasal sinus; Translations: [Other polyp of sinus] Onset: 12-10-2013 12-30-2023 Episodic Residual codes; unclassified (1 source) Flushing; Translations: [FLUSHING] Onset: 07-23-2022 Episodic Unclassified (1 source) Cough R05.9 Onset: 05-02-2021 Resolved: 05-02-2021 Unclassified (1 source) Exposure to 2019 novel coronavirus; Translations: [Contact with and (suspected) exposure to COVID19] Urinary tract infections (1 source) Acute urinary tract infection; Translations: [Acute UTI] Episodic Results Test Name Value Interpretation Reference Range Facility CA ECHO DOPPLER COMPLETEon 0 12-23-[address] [address] Cardiology Report Signed Patient: ANNE KEMP MR#: [id number] : 1955 Acct:[id number] Age/Sex: 69 / F ADM Date: 12/23/24 Loc: CARD Attending Dr: Yaritza Mueller NP Ordering Physician: Yaritza Mueller NP Date of Service: 12/23/24 Procedure(s): CA echo doppler complete Accession Number(s): [id number] cc: Yaritza Mueller NP Patient Name: ANNE KEMP MR#: [id number] : 1955 Exam Date: 12/23/2024 Ordering Doctor: MATT MUELLER CNP ECHOCARDIOGRAM REPORT PROCEDURE: CA ECHO DOPPLER COMPLETE INDICATIONS: Chest pain, dyspnea, hypertension COMPARISON: None. DESCRIPTION: COMPLETE ECHOCARDIOGRAM Real-time transthoracic echocardiography with 2D, M-mode, spectral and color flow Doppler performed. QUALITY: Technical quality was good. LEFT VENTRICLE: Normal chamber size. Normal left ventricular wall thickness. LV EF: Global left ventricular systolic function is normal; visually estimated ejection fraction is 55 to 60%. Abnormal septal motion; likely related to underlying bundle branch block. DIASTOLIC: Normal diastolic function. ATRIAL SEPTUM: Visually appears intact. LEFT ATRIUM: Normal chamber size. RIGHT ATRIUM: Mild dilatation. RIGHT VENTRICLE: Normal chamber size. Normal right ventricular systolic function. TRICUSPID VALVE: Normal mobility and thickness. No stenosis with mild regurgitation. No evidence of pulmonary hypertension. RVSP 31 mmHg MITRAL VALVE: Normal mobility and thickness. No evidence of mitral valve stenosis. Mild mitral annular calcification. Mild mitral regurgitation. AORTIC VALVE: Normal trileaflet appearance. Mildly calcified aortic valve. Normal leaflet mobility. No evidence of aortic valve stenosis. No aortic regurgitation. AORTIC ROOT: Normal diameter and appearance. Ascending aorta is normal in size. PULMONIC VALVE: Normal thickness and mobility. No stenosis. No regurgitation. PERICARDIUM: No evidence of pericardial effusion. IVC: Collapses with inspiration. CONCLUSION: 1. Global left ventricular systolic function is normal; visually estimated ejection fraction is 55 to 60% 2. Normal right ventricular size and systolic function 3. The right atrium is mildly dilated 4. Mild tricuspid regurgitation 5. Mild mitral regurgitation Adult Echocardiography Procedure Report Left Ventricle LVEDD (3.7 - 5.6 cm): 3.89 cm LVESD (2.2 - 4.0 cm): 2.88 cm LVIVS thickness (0.6 - 1.2 cm): 1.17 cm LVPW thickness (0.5 - 1.0 cm): 0.88 cm e': 0.11 m/s E - e': 7.32 LVOT Max Gradient: 2.19 mm[Hg] LVOT Area (cm2): 0.74 m/s Peak Velocity (LVOT): 0.74 m/s Mean Velocity (LVOT): 0.51 m/s LVOT Diameter 2.27 cm Left Ventricular Ejection Fraction: 67.63 % Left Atrium LA Volume Index (2D A2C): 33.10 ml/m2 Left Atrium Systolic Dimension: 3.87 cm Mitral Valve MV E to A Ratio: 1 MV Max Gradient: Normal 7 to MV Mean Gradient: Mitral Valve A-Wave Peak Velocity: 0.79 m/s Mitral Valve E-Wave Peak Velocity: 0.79 m/s Cardiovascular Orifice Area: Right Ventricle RV Internal Diastolic Dimension: Aorta AO Root Diam: 3.49 cm Ascending Ao Diam: 3.15 cm Aortic Valve AoV Area (Peak J Carlos): 2.44 cm2, 2.44 cm2 AoV Area (VTI): 2.36 cm2, 2.36 cm2 Deceleration [place]: Pressure Half-Time: Peak Velocity(Antegrade Flow): 1.23 m/s Peak Gradient(Antegrade Flow): 6.03 mm[Hg] Mean Velocity(Antegrade Flow): 0.89 m/s Mean Gradient(Antegrade Flow): 3.54 mm[Hg] Velocity Time Integral: 32.79 cm Tricuspid Valve Peak Velocity (Regurgitant Flow): 2.65 m/s Peak Velocity: Pulmonic Valve Mean Gradient: Mean Velocity: Peak Velocity: Peak Gradient: 3.17 mm[Hg], 2.83 mm[Hg] Right Atrium Right Atrium Systolic Pressure: 63.13 ml, 63.13 ml Dictated by: Magi De La Cruz M.D. (more content not included)... [facility] Radiology, Radiologi MD jessica - 12/23/[address] [address] Cardiology Report Signed Patient: ANNE KEMP MR#: [id number] : 1955 Acct:[id number] Age/Sex: 69 / F ADM Date: 12/23/24 Loc: CARD Attending Dr: Yaritza Mueller NP Ordering Physician: Yaritza Mueller NP Date of Service: 12/23/24 Procedure(s): CA echo doppler complete Accession Number(s): [id number] cc: Yaritza Mueller NP Patient Name: ANNE KEMP MR#: [id number] : 1955 Exam Date: 12/23/2024 Ordering Doctor: MATT MUELLER CNP ECHOCARDIOGRAM REPORT PROCEDURE: CA ECHO DOPPLER COMPLETE INDICATIONS: Chest pain, dyspnea, hypertension COMPARISON: None. DESCRIPTION: COMPLETE ECHOCARDIOGRAM Real-time transthoracic echocardiography with 2D, M-mode, spectral and color flow Doppler performed. QUALITY: Technical quality was good. LEFT VENTRICLE: Normal chamber size. Normal left ventricular wall thickness. LV EF: Global left ventricular systolic function is normal; visually estimated ejection fraction is 55 to 60%. Abnormal septal motion; likely related to underlying bundle branch block. DIASTOLIC: Normal diastolic function. ATRIAL SEPTUM: Visually appears intact. LEFT ATRIUM: Normal chamber size. RIGHT ATRIUM: Mild dilatation. RIGHT VENTRICLE: Normal chamber size. Normal right ventricular systolic function. TRICUSPID VALVE: Normal mobility and thickness. No stenosis with mild regurgitation. No evidence of pulmonary hypertension. RVSP 31 mmHg MITRAL VALVE: Normal mobility and thickness. No evidence of mitral valve stenosis. Mild mitral annular calcification. Mild mitral regurgitation. AORTIC VALVE: Normal trileaflet appearance. Mildly calcified aortic valve. Normal leaflet mobility. No evidence of aortic valve stenosis. No aortic regurgitation. AORTIC ROOT: Normal diameter and appearance. Ascending aorta is normal in size. PULMONIC VALVE: Normal thickness and mobility. No stenosis. No regurgitation. PERICARDIUM: No evidence of pericardial effusion. IVC: Collapses with inspiration. CONCLUSION: 1. Global left ventricular systolic function is normal; visually estimated ejection fraction is 55 to 60% 2. Normal right ventricular size and systolic function 3. The right atrium is mildly dilated 4. Mild tricuspid regurgitation 5. Mild mitral regurgitation Adult Echocardiography Procedure Report Left Ventricle LVEDD (3.7 - 5.6 cm): 3.89 cm LVESD (2.2 - 4.0 cm): 2.88 cm LVIVS thickness (0.6 - 1.2 cm): 1.17 cm LVPW thickness (0.5 - 1.0 cm): 0.88 cm e': 0.11 m/s E - e': 7.32 LVOT Max Gradient: 2.19 mm[Hg] LVOT Area (cm2): 0.74 m/s Peak Velocity (LVOT): 0.74 m/s Mean Velocity (LVOT): 0.51 m/s LVOT Diameter 2.27 cm Left Ventricular Ejection Fraction: 67.63 % Left Atrium LA Volume Index (2D A2C): 33.10 ml/m2 Left Atrium Systolic Dimension: 3.87 cm Mitral Valve MV E to A Ratio: 1 MV Max Gradient: Normal 7 to MV Mean Gradient: Mitral Valve A-Wave Peak Velocity: 0.79 m/s Mitral Valve E-Wave Peak Velocity: 0.79 m/s Cardiovascular Orifice Area: Right Ventricle RV Internal Diastolic Dimension: Aorta AO Root Diam: 3.49 cm Ascending Ao Diam: 3.15 cm Aortic Valve AoV Area (Peak J Carlos): 2.44 cm2, 2.44 cm2 AoV Area (VTI): 2.36 cm2, 2.36 cm2 Deceleration [place]: Pressure Half-Time: Peak Velocity(Antegrade Flow): 1.23 m/s Peak Gradient(Antegrade Flow): 6.03 mm[Hg] Mean Velocity(Antegrade Flow): 0.89 m/s Mean Gradient(Antegrade Flow): 3.54 mm[Hg] Velocity Time Integral: 32.79 cm Tricuspid Valve Peak Velocity (Regurgitant Flow): 2.65 m/s Peak Velocity: Pulmonic Valve Mean Gradient: Mean Velocity: Peak Velocity: Peak Gradient: 3.17 mm[Hg], 2.83 mm[Hg] Right Atrium Right Atrium Systolic Pressure: 63.13 ml, 63.13 ml Dictated by: Magi De La Cruz M.D. on 12/23/2024 at 18:17 Approved by: Magi De La Cruz M.D. on 12/23/2024 at 18:20 Dictated By: Magi De La Cruz M.D. Signed By: 12/23/241820 DD/ 19 TD/TT: Chip Separator: [facility] Radiology Study observation (narrative) [facility] CA ECHO DOPPLER COMPLETEOrde red By: Radiologist Radiology on 12-23-2024 [facility] Work Phone: GGTon 11-07-2022 Gamma glutamyl transferase [Catalytic activity/Vol] 122 U/L Critically high 8-55 [facility] Comment on above: Performed By: #### L IVER, GGT #### [facility] [address] [address] [address] Sarah Beth Benton LIVER PROFILEon 11-07-2022 Albumin [Mass/Vol] 3.8 g/dL Normal 3.4-5.0 [facility] Comment on above: Performed By: #### L IVER, GGT #### [facility] [address] [place] [address] Dr. Sarah Beth Benton Albumin/Globulin [Mass ratio] 1.0 {ratio} Normal [facility] Comment on above: Performed By: #### L IVER, GGT #### [facility] [address] [place] [address] Dr. Sarah Beth Benton ALP [Catalytic activity/Vol] 119 U/L Critically high 46-116 [facility] Comment on above: Performed By: #### L IVER, GGT #### [facility] [address] [place] [address] Dr. Sarah Beth Benton ALT [Catalytic activity/Vol] 27 U/L Normal 14-59 [facility] Comment on above: Performed By: #### L IVER, GGT #### [facility] [address] [place] [address] Dr. Sarah Beth Benton AST [Catalytic activity/Vol] 25 U/L Normal 15-37 [facility] Comment on above: Performed By: #### L IVER, GGT #### [facility] [address] [address] [address] Sarah Beth Benton BILI, CONJUGATED 0.1 mg/dL Normal 0.0-0.2 [facility] Comment on above: Performed By: #### L IVER, GGT #### [facility] [address] [place] [address] Dr. Sarah Beth Benton Bilirubin [Mass/Vol] 0.5 mg/dL Normal 0.2-1.0 [facility] Comment on above: Performed By: #### L IVER, GGT #### [facility] [address] [place] [address] Dr. Sarah Beth Benton Globulin (S) [Mass/Vol] 3.8 g/dL Normal [facility] Comment on above: Performed By: #### L IVER, GGT #### [facility] [address] [place] [address] Dr. Sarah Beth Benton Protein [Mass/Vol] 7.6 g/dL Normal 6.4-8.2 [facility] Comment on above: Performed By: #### L IVER, GGT #### [facility] [address] [place] [address] Dr. Sarah Beth Benton FREE T4on 10-25-2022 Free T4 [Mass/Vol] 0.76 ng/dL Normal 0.76-1.46 [facility] Comment on above: Performed By: #### L IVER, GGT #### [facility] [address] [place] [address] Dr. Sarah Beth Benton HEMOGRAM AND PLATELon 2022 Hematocrit (Bld) [Volume fraction] 35.9 % Critically low 36.0-48.0 [facility] Comment on above: Performed By: #### L IVER, GGT #### [facility] [address] [place] [address] Dr. Sarah Beth Benton Hemoglobin (Bld) [Mass/Vol] 12.3 g/dL Normal 12.0-16.0 [facility] Comment on above: Performed By: #### L IVER, GGT #### [facility] [address] [place] [address] Dr. Sarah Beth Benton MCH (RBC) [Entitic mass] 30.6 pg Normal 26.7-34.0 [facility] Comment on above: Performed By: #### L IVER, GGT #### [facility] [address] [place] [address] Dr. Sarah Beth Benton MCHC (RBC) [Mass/Vol] 34.3 g/dL Normal 29.9-35.2 [facility] Comment on above: Performed By: #### L IVER, GGT #### [facility] [address] [address] [address] Sarah Beth Benton MCV (RBC) [Entitic vol] 89.3 fL Normal 81.0-99.0 [facility] Comment on above: Performed By: #### L IVER, GGT #### [facility] [address] [address] [address] Sarah Beth Benton PLT 356 103/ul Normal 150-450 [facility] Comment on above: Performed By: #### L IVER, GGT #### [facility] [address] [address] [address] Sarah Beth Benton RBC 4.02 106/ul Critically low 4.20-5.40 [facility] Comment on above: Performed By: #### L IVER, GGT #### [facility] [address] [address] [address] Sarah Beth Benton WBC 5.9 103/ul Normal 4.0-11.0 [facility] Comment on above: Performed By: #### L IVER, GGT #### [facility] [address] [address] [address] Sarah Beth Benton MG MAMM SCREEN 3D DOUG CADon 10-25-2022 MG MAMM SCREEN 3D DOUG CAD Patient: ANNE KEMP Exam Date: 10/25/2022 : 1955 Gender:F Ordering : [facility] Admission #: [id number] Family : Order #: [id number] CLICK HERE TO VIEW EXAM RADIOLOGY REPORT [...] lung cancer at age 69. LOCATION: [facility] BREAST COMPOSITION: Scattered areas fibroglandular density. [...] Baig MD on 10/26/2022 at 12:06 Normal [facility] PROF 14(COMP METB)on 023 Albumin [Mass/Vol] 3.8 g/dL Normal 3.4-5.0 [facility] Comment on above: Performed By: #### P THINT #### [facility] [address] [place] [address] Dr. Sarah Beth Benton Albumin/Globulin [Mass ratio] 1.0 {ratio} Normal [facility] Comment on above: Performed By: #### P THINT #### [facility] [address] [place] [address] Dr. Sarah Beth Benton ALP [Catalytic activity/Vol] 139 U/L Critically high 46-116 [facility] Comment on above: Performed By: #### P THINT #### [facility] [address] [place] [address] Dr. Sarah Beth Benton ALT [Catalytic activity/Vol] 29 U/L Normal 14-59 [facility] Comment on above: Performed By: #### P THINT #### [facility] [address] [place] [address] Dr. Sarah Beth Benton Anion gap [Moles/Vol] 10.2 mmol/L Normal [facility] Comment on above: Performed By: #### P THINT #### [facility] [address] [place] [address] Dr. Sarah Beth Benton AST [Catalytic activity/Vol] 23 U/L Normal 15-37 [facility] Comment on above: Performed By: #### P THINT #### [facility] [address] [place] [address] Dr. Sarah Beth Benton Bilirubin [Mass/Vol] 0.3 mg/dL Normal 0.2-1.0 [facility] Comment on above: Performed By: #### P THINT #### [facility] [address] [place] [address] Dr. Sarah Beth Benton Calcium [Mass/Vol] 9.3 mg/dL Normal 8.5-10.1 [facility] Comment on above: Performed By: #### P THINT #### [facility] [address] [place] [address] Dr. Sarah Beth Benton Chloride [Moles/Vol] 98 mmol/L Normal 98-107 [facility] Comment on above: Performed By: #### P THINT #### [facility] [address] [place] [address] Dr. Sarah Beth Benton CO2 [Moles/Vol] 30.7 mmol/L Normal 21.0-32.0 [facility] Comment on above: Performed By: #### P THINT #### [facility] [address] [place] [address] Dr. Sarah Beth Benton Creatinine [Mass/Vol] 0.86 mg/dL Normal 0.55-1.02 [facility] Comment on above: Performed By: #### P THINT #### [facility] [address] [place] [address] Dr. Sarah Beth Benton EGFR-AF MAURITIAN >60 Normal >=60 [facility] Comment on above: Performed By: #### P THINT #### [facility] [address] [place] [address] Dr. Sarah Beth Benton EGFR-NON AF MAURITIAN >60 Normal >=60 [facility] Comment on above: Performed By: #### P THINT #### [facility] [address] [place] [address] Dr. Sarah Beth Benton Globulin (S) [Mass/Vol] 3.8 g/dL Normal [facility] Comment on above: Performed By: #### P THINT #### [facility] [address] [place] [address] Dr. Sarah Beth Benton Glucose [Mass/Vol] 89 mg/dL Normal 74-106 [facility] Comment on above: Performed By: #### P THINT #### [facility] [address] [address] [address] Sarah Beth Benton Potassium [Moles/Vol] 3.9 mmol/L Normal 3.5-5.1 [facility] Comment on above: Performed By: #### P THINT #### [facility] [address] [address] [address] Sarah Beth Benton Protein [Mass/Vol] 7.6 g/dL Normal 6.4-8.2 [facility] Comment on above: Performed By: #### P THINT #### [facility] [address] [address] [address] Sarah Beth Benton Sodium [Moles/Vol] 135 mmol/L Critically low 136-145 [facility] Comment on above: Performed By: #### P THINT #### [facility] [address] [address] [address] Sarah Beth Benton Urea nitrogen [Mass/Vol] 17.0 mg/dL Normal 7.0-18.0 [facility] Comment on above: Performed By: #### P THINT #### [facility] [address] [address] [address] Sarah Beth Benton Urea nitrogen/Creatinine [Mass ratio] 19.8 mg/mg Normal [facility] Comment on above: Performed By: #### P THINT #### [facility] [address] [place] [address] Dr. Sarah Beth Benton TSHon 10-25-2022 TSH 2.754 uIU/mL Normal 0.358-3.740 [facility] Comment on above: Performed By: #### P THINT #### [facility] [address] [address] [address] Sarah Beth Benton METANEPHRINES PLASMA FREEon 07-24-2022 Metanephrine, Pl 17.5 pg/mL Normal 0.0-88.0 [facility] Comment on above: Performed By: #### M ETANPF #### [facility] [address] [address] [address] Sarah Beth Benton Normetanephrine, Pl 90.0 pg/mL Normal 0.0-285.2 [facility] Comment on above: Performed By: #### M ETANPF #### [facility] [address] [place] [address] Dr. Sarah Beth Benton ACTH, PLASMAon 07-20-2022 ACTH, Plasma 38.6 pg/mL Normal 7.2-63.3 [facility] Comment on above: Result Comment: ACTH reference interval for samples collected between 7 and 10 AM. Performed By: #### P THINT #### [facility] [address] [place] [address] Dr. Sarah Beth Benton THYROID ANTIBODIESon 023 Thyroglobulin Antibody <1.0 Normal 0.0-0.9 [facility] Comment on above: Result Comment: Thyr oglobulin Antibody measured by [employer] Performed By: #### L CAROLA GGT #### [facility] [address] [place] [address] Dr. Sarah Beth Benton Thyroid Peroxidase (TPO) Ab <9 Normal 0-34 [facility] Comment on above: Performed By: #### Armando SRIVASTAVA GGT #### [facility] [address] [place] [address] Dr. Sarah Beth Benton FREE T3on 07-19-2022 FREE T3 2.27 pg/mlL Normal 2.18-3.98 [facility] Comment on above: Performed By: #### Armando SRIVASTAVA GGT #### [facility] [address] [place] [address] Dr. Sarah Beth Benton FREE T4on 07-19-2022 Free T4 [Mass/Vol] 0.72 ng/dL Critically low 0.76-1.46 [facility] Comment on above: Performed By: #### P THINT #### [facility] [address] [place] [address] Dr. Sarah Beth Benton MAGNESIUMon 07-19-2022 Magnesium [Mass/Vol] 2.4 mg/dL Normal 1.8-2.4 [facility] Comment on above: Performed By: #### L CAROLA GGT #### [facility] [address] [place] [address] Dr. Sarah Beth Benton TROPONIN, HIGH SENSITIVITYon 07-19-2022 HSTROP 5.3 pg/mL Normal 4.0-51.3 [facility] Comment on above: Result Comment: CUT- OFF POINTS HAVE BEEN ESTABLISHED BASED ON THE FOURTH UNIVERSAL DEFINITIONS OF MYOCARDIAL INFARCTION. THE UPPER REFERENCE LIMIT (URL) OF TROPONIN, DEFINED THE 99TH PERCENTILE OF cTnI DISTRIBUTION IN A REFERENCE POPULATION, HAS BEEN CONFIRMED THE DECISION THRESHOLD FOR AR DIAGNOSIS. Performed By: #### L CAROLA GGT #### [facility] [address] [place] [address] Dr. Sarah Beth Benton TSHon 07-19-2022 TSH 4.556 uIU/mL Critically high 0.358-3.740 [facility] Comment on above: Performed By: #### L CAROLA GGT #### [facility] [address] [place] [address] Dr. Sarah Beth Benton RENIN ACTIVITYon 07-14-2022 Renin Activity, Plasma 1.051 ng/mL/hr Normal 0.167-5.380 [facility] Comment on above: Performed By: #### P THINT #### [facility] [address] [place] [address] Dr. Sarah Beth Benton CORTISOLon 07-12-2022 Cortisol 29.1 ug/dL Normal [facility] Comment on above: Result Comment: Corby isol AM 6.2 - 19.4 Cortisol PM 2.3 - 11.9 Performed By: #### L CAROLA GGT #### [facility] [address] [place] [address] Dr. Sarah Beth Benton PTH INTACTon 07-12-2022 PTH, Intact 29 pg/mL Normal 15-65 [facility] Comment on above: Performed By: #### P THINT #### [facility] [address] [place] [address] Dr. Sarah Beth Benton CBC AUTO DIFFon 07-11-2022 BASO # 0.1 103/ul Normal 0.0-0.1 [facility] Comment on above: Performed By: #### C BC #### [facility] [address] [place] [address] Dr. Sarah Beth Benton Basophils/100 WBC (Bld) 1.1 % Normal 0.2-2.0 [facility] Comment on above: Performed By: #### C BC #### [facility] [address] [place] [address] Dr. Sarah Beth Benton EO # 0.2 103/ul Normal 0.0-0.7 [facility] Comment on above: Performed By: #### C BC #### [facility] [address] [place] [address] Dr. Sarah Beth Benton Eosinophils/100 WBC (Bld) 3.2 % Normal 0.9-7.0 [facility] Comment on above: Performed By: #### C BC #### [facility] [address] [place] [address] Dr. Sarah Beth Benton Erythrocyte distribution width (RBC) [Ratio] 12.7 % Normal 11.0-15.0 [facility] Comment on above: Performed By: #### C BC #### [facility] [address] [place] [address] Dr. Sarah Beth Benton Hematocrit (Bld) [Volume fraction] 39.2 % Normal 36.0-48.0 [facility] Comment on above: Performed By: #### C BC #### [facility] [address] [place] [address] Dr. Sarah Beth Benton Hemoglobin (Bld) [Mass/Vol] 12.8 g/dL Normal 12.0-16.0 [facility] Comment on above: Performed By: #### C BC #### [facility] [address] [place] [address] Dr. Sarah Beth Benton IG # 0.01 10e3/ul Normal 0.00-0.03 [facility] Comment on above: Performed By: #### C BC #### [facility] [address] [place] [address] Dr. Sarah Beth Benton IG % 0.2 % Normal 0.0-0.5 [facility] Comment on above: Performed By: #### C BC #### [facility] [address] [place] [address] Dr. Sarah Beth Benton LYMPH # 1.9 103/ul Normal 1.2-3.8 [facility] Comment on above: Performed By: #### C BC #### [facility] [address] [place] [address] Dr. Sarah Beth Benton Lymphocytes/100 WBC (Bld) 41.1 % Normal 20.5-60.0 [facility] Comment on above: Performed By: #### C BC #### [facility] [address] [place] [address] Dr. Sarah Beth Benton MANUAL DIFF REQ NO Normal [facility] Comment on above: Performed By: #### C BC #### [facility] [address] [place] [address] Dr. Sarah Beth Benton MCH (RBC) [Entitic mass] 30.2 pg Normal 26.7-34.0 [facility] Comment on above: Performed By: #### C BC #### [facility] [address] [place] [address] Dr. Sarah Beth Benton MCHC (RBC) [Mass/Vol] 32.7 g/dL Normal 29.9-35.2 [facility] Comment on above: Performed By: #### C BC #### [facility] [address] [place] [address] Dr. Sarah Beth Benton MCV (RBC) [Entitic vol] 92.5 fL Normal 81.0-99.0 [facility] Comment on above: Performed By: #### C BC #### [facility] [address] [place] [address] Dr. Sarah Beth Benton MONO # 0.7 103/ul Normal 0.3-0.8 [facility] Comment on above: Performed By: #### C BC #### [facility] [address] [place] [address] Dr. Sarah Beth Benton Monocytes/100 WBC (Bld) 14.0 % Critically high 1.7-12.0 [facility] Comment on above: Performed By: #### C BC #### [facility] [address] [place] [address] Dr. Sarah Beth Benton NEUT # 1.9 103/ul Normal 1.4-6.5 [facility] Comment on above: Performed By: #### C BC #### [facility] [address] [place] [address] Dr. Sarah Beth Benton Neutrophils/100 WBC (Bld) 40.4 % Critically low 43.0-75.0 [facility] Comment on above: Performed By: #### C BC #### [facility] [address] [place] [address] Dr. Sarah Beth Benton Platelet mean volume (Bld) [Entitic vol] 8.2 fL Critically low 9.5-13.5 [facility] Comment on above: Performed By: #### C BC #### [facility] [address] [place] [address] Dr. Sarah Beth Benton PLT 357 103/ul Normal 150-450 [facility] Comment on above: Performed By: #### C BC #### [facility] [address] [place] [address] Dr. Sarah Beth Benton RBC 4.24 106/ul Normal 4.20-5.40 [facility] Comment on above: Performed By: #### C BC #### [facility] [address] [place] [address] Dr. Sarah Beth Benton WBC 4.7 103/ul Normal 4.0-11.0 [facility] Comment on above: Performed By: #### C BC #### [facility] [address] [place] [address] Dr. Sarah Beth Benton CPKon 07-11-2022 CK [Catalytic activity/Vol] 77 U/L Normal 26-192 [facility] Comment on above: Performed By: #### C MP, TSH, CK, LIPID #### [facility] [address] [place] [address] Dr. Sarah Beth Benton FREE T4on 07-11-2022 Free T4 [Mass/Vol] 0.75 ng/dL Critically low 0.76-1.46 Th [facility] Comment on above: Performed By: #### L IVER, GGT #### [facility] [address] [place] [address] Dr. Sarah Beth Benton LIPID PROFILEon 07-11-2022 CHOL-HDL RATIO NORM SEE BELOW Normal [facility] Comment on above: Result Comment: 3.3 - 4.4 LOW RISK 4.4 - 7.1 AVERAGE RISK 7.1 - 11.0 MODERATE RISK >11.0 HIGH RISK Performed By: #### C MP, TSH, CK, LIPID #### [facility] [address] [address] [address] Sarah Beth Benton Cholesterol [Mass/Vol] 292 mg/dL Critically high <=200 [facility] Comment on above: Performed By: #### C MP, TSH, CK, LIPID #### [facility] [address] [address] [address] Sarah Beth Benton Cholesterol in HDL [Mass/Vol] 67 mg/dL Critically high 40-60 [facility] Comment on above: Performed By: #### C MP, TSH, CK, LIPID #### [facility] [address] [address] [address] Sarah Beth Benton Cholesterol in LDL [Mass/Vol] 201.6 mg/dL Normal [facility] Comment on above: Performed By: #### C MP, TSH, CK, LIPID #### [facility] [address] [address] [address] Sarah Beth Benton Cholesterol.total/Ch olesterol in HDL [Mass ratio] 4.4 {ratio} Normal [facility] Comment on above: Performed By: #### C MP, TSH, CK, LIPID #### [facility] [address] [address] [address] Sarah Beth Benton HDL NORMAL > or = 60 mg/dl - LO W CARDIOVASCULAR RISK <40 mg/dl - HIGH CARDIOVASCULAR RISK Normal [facility] Comment on above: Performed By: #### C MP, TSH, CK, LIPID #### [facility] [address] [place] [address] Dr. Sarah Beth Benton LDL CALC NORMAL SEE BELOW Normal [facility] Comment on above: Result Comment: <100 mg/dl OPTIMAL 100 - 129 mg/dl NEAR OR ABOVE OPTIMAL 130 - 159 mg/dl BORDERLINE HIGH 160 - 189 mg/dl HIGH >190 mg/dl VERY HIGH Performed By: #### C MP, TSH, CK, LIPID #### [facility] [address] [place] [address] Dr. Sarah Beth Benton Triglyceride [Mass/Vol] 117 mg/dL Normal <=150 [facility] Comment on above: Performed By: #### C MP, TSH, CK, LIPID #### [facility] [address] [place] [address] Dr. Sarah Beth Benton VLDL CALC 23.4 mg/dL Normal [facility] Comment on above: Performed By: #### C MP, TSH, CK, LIPID #### [facility] [address] [place] [address] Dr. Sarah Beth Benton MICROALBUMIN, RAND URon 02 mALB 1.6 mg/L Normal <=30.0 [facility] Comment on above: Performed By: #### P THINT #### [facility] [address] [place] [address] Dr. Sarah Beth Benton PROF 14(COMP METB)on 023 Albumin [Mass/Vol] 4.0 g/dL Normal 3.4-5.0 [facility] Comment on above: Performed By: #### C MP, TSH, CK, LIPID #### [facility] [address] [place] [address] Dr. Saarh Beth Benton Albumin/Globulin [Mass ratio] 1.1 {ratio} Normal [facility] Comment on above: Performed By: #### C MP, TSH, CK, LIPID #### [facility] [address] [place] [address] Dr. Sarah Beth Benton ALP [Catalytic activity/Vol] 109 U/L Normal 46-116 [facility] Comment on above: Performed By: #### C MP, TSH, CK, LIPID #### [facility] [address] [place] [address] Dr. Sarah Beth Benton ALT [Catalytic activity/Vol] 28 U/L Normal 14-59 [facility] Comment on above: Performed By: #### C MP, TSH, CK, LIPID #### [facility] [address] [place], [place] [id number] Dr. Sarah Beth Benton Anion gap [Moles/Vol] 11.7 mmol/L Normal [facility] Comment on above: Performed By: #### C MP, TSH, CK, LIPID #### [facility] [address] [place] [address] Dr. Sarah Beth Benton AST [Catalytic activity/Vol] 28 U/L Normal 15-37 [facility] Comment on above: Performed By: #### C MP, TSH, CK, LIPID #### [facility] [address] [place] [address] Dr. Sarah Beth Benton Bilirubin [Mass/Vol] 0.4 mg/dL Normal 0.2-1.0 [facility] Comment on above: Performed By: #### C MP, TSH, CK, LIPID #### [facility] [address] [place] [address] Dr. Sarah Beth Benton Calcium [Mass/Vol] 9.4 mg/dL Normal 8.5-10.1 [facility] Comment on above: Performed By: #### C MP, TSH, CK, LIPID #### [facility] [address] [place] [address] Dr. Sarah Beth Benton Chloride [Moles/Vol] 100 mmol/L Normal 98-107 [facility] Comment on above: Performed By: #### C MP, TSH, CK, LIPID #### [facility] [address] [place] [address] Dr. Sarah Beth Benton CO2 [Moles/Vol] 32.0 mmol/L Normal 21.0-32.0 [facility] Comment on above: Performed By: #### C MP, TSH, CK, LIPID #### [facility] [address] [place] [address] Dr. Sarah Beth Benton Creatinine [Mass/Vol] 0.85 mg/dL Normal 0.55-1.02 [facility] Comment on above: Performed By: #### C MP, TSH, CK, LIPID #### [facility] [address] [address] [address] Sarah Beth Benton EGFR-AF MAURITIAN >60 Normal >=60 [facility] Comment on above: Performed By: #### C MP, TSH, CK, LIPID #### [facility] [address] [address] [address] Sarah Beth Benton EGFR-NON AF MAURITIAN >60 Normal >=60 [facility] Comment on above: Performed By: #### C MP, TSH, CK, LIPID #### [facility] [address] [address] [address] Sarah Beth Benton Globulin (S) [Mass/Vol] 3.7 g/dL Normal [facility] Comment on above: Performed By: #### C MP, TSH, CK, LIPID #### [facility] [address] [address] [address] Sarah Beth Benton Glucose [Mass/Vol] 79 mg/dL Normal 74-106 [facility] Comment on above: Performed By: #### C MP, TSH, CK, LIPID #### [facility] [address] [place] [address] Dr. Sarah Beth Benton Potassium [Moles/Vol] 4.7 mmol/L Normal 3.5-5.1 [facility] Comment on above: Performed By: #### C MP, TSH, CK, LIPID #### [facility] [address] [place] [address] Dr. Sarah Beth Benton Protein [Mass/Vol] 7.7 g/dL Normal 6.4-8.2 [facility] Comment on above: Performed By: #### C MP, TSH, CK, LIPID #### [facility] [address] [address] [address] Sarah Beth Benton Sodium [Moles/Vol] 139 mmol/L Normal 136-145 [facility] Comment on above: Performed By: #### C MP, TSH, CK, LIPID #### [facility] [address] [place] [address] Dr. Sarah Beth Benton Urea nitrogen [Mass/Vol] 16.0 mg/dL Normal 7.0-18.0 [facility] Comment on above: Performed By: #### C MP, TSH, CK, LIPID #### [facility] [address] [place] [address] Dr. Sarah Beth Benton Urea nitrogen/Creatinine [Mass ratio] 18.8 mg/mg Normal [facility] Comment on above: Performed By: #### C MP, TSH, CK, LIPID #### [facility] [address] [place] [address] Dr. Sarah Beth Benton TSHon 07-11-2022 TSH 5.279 uIU/mL Critically high 0.358-3.740 [facility] Comment on above: Performed By: #### C MP, TSH, CK, LIPID #### [facility] [address] [place] [address] Dr. Sarah Beth Benton UA RANDOM W/MICROSCOPICon BACTERIA NONE SEEN Normal NONE SEEN [facility] Comment on above: Performed By: #### U AMIC #### [facility] [address] [place] [address] Dr. Sarah Beth Benton Bilirubin Ql (U) Negative Normal NEGATIVE [facility] Comment on above: Performed By: #### U AMIC #### [facility] [address] [place] [address] Dr. Sarah Beth Benton CAST NONE SEEN Normal NONE SEEN [facility] Comment on above: Performed By: #### U AMIC #### [facility] Laboratory [address] [place] [address] Dr. Sarah Beth Benton Clarity (U) CLEAR Normal CLEAR [facility] Comment on above: Performed By: #### U AMIC #### [facility] [address] [place] [address] Dr. Sarah Beth Benton Color (U) YELLOW Normal YELLOW [facility] Comment on above: Performed By: #### U AMIC #### [facility] [address] [place] [address] Dr. Sarah Beth Benton Crystals LM Nom (Urine sed) NONE SEEN Normal NONE SEEN [facility] Comment on above: Performed By: #### U AMIC #### [facility] [address] [place] [address] Dr. Sarah Beth Benton Epithelial cells LM Ql (Urine sed) FEW Abnormal NONE SEEN /RARE [facility] Comment on above: Performed By: #### U AMIC #### [facility] [address] [address] [address] Sarah Beth Benton Glucose Ql (U) Negative Normal NEGATIVE [facility] Comment on above: Performed By: #### U AMIC #### [facility] [address] [address] [address] Sarah Beth Benton Hemoglobin Ql (U) Negative Normal NEGATIVE [facility] Comment on above: Performed By: #### U AMIC #### [facility] [address] [address] [address] Sarah Beth Benton Ketones Ql (U) Negative Normal NEGATIVE [facility] Comment on above: Performed By: #### U AMIC #### [facility] [address] [address] [address] Sarah Beth Benton LEUKOCYTES Negative Normal NEGATIVE [facility] Comment on above: Performed By: #### U AMIC #### [facility] [address] [address] [address] Sarah Beth Benton MUCOUS SMALL Abnormal NONE SEEN [facility] Comment on above: Performed By: #### U AMIC #### [facility] [address] [address] [address] Sarah Beth Benton Nitrite Ql (U) Negative Normal NEGATIVE [facility] Comment on above: Performed By: #### U AMIC #### [facility] [address] [address] [address] Sarah Beth Benton pH (U) 6.0 [pH] Normal 5-9 [facility] Comment on above: Performed By: #### U AMIC #### [facility] [address] [address] [address] Sarah Beth Benton RBC NONE SEEN Abnormal 0-2 [facility] Comment on above: Performed By: #### U AMIC #### [facility] [address] [address] [address] Sarah Beth Benton SPEC GRAVITY 1.025 Normal 1.005-<=1.0 25 [facility] Comment on above: Performed By: #### U AMIC #### [facility] [address] [place] [address] Dr. Sarah Beth Benton UA PROTEIN Negative Normal NEGATIVE/ TRACE [facility] Comment on above: Performed By: #### U AMIC #### [facility] [address] [place], [place] [address] Dr. Sarah Beth Benton Urobilinogen Qn (U) 0.2 {Becca'U}/dL Normal 0.2 - 1. 0 [facility] Comment on above: Performed By: #### U AMIC #### [facility] [address] [place], [place] [address] Dr. Sarah Beth Benton WBC NONE SEEN Normal NONE SEEN [facility] Comment on above: Performed By: #### U AMIC #### [facility] [address] [place], [place] [address] Dr. Sarah Beth Benton Insurance Correspondence Off ice02-26-2022 Insurance Correspondence Office [id number]#1.00CD:1 27 [facility] Insurance Correspondence Office [id number]#1.00CD:1 27 [facility] Insurance Correspondence Off ice 11-21-2021 Insurance Correspondence Office [id number]#1.00CD: 127 [facility] Insurance Correspondence Off ice11-20-2021 Insurance Correspondence Office [id number]#1.00CD :127 [facility] Preoperative Documentson Preoperative Documents [id number]#1.00C D:127 [facility] Coding Summary.on 09-29-2021 Coding Summary. CD:[id number] Gh0b Ww+PGhlYWQ+HL5GWRIzI41su QSwhC4HX0fADT3JEBIVAYJLP V6YGL9czDV6SWewU4WcxsFh BrrklGRlVQ92ESf4WJZ8vRgb FQkylO2nrFCvH5i1LvEkPI55 cC64LCtsDWSiUuW2MdGbxoed bWFy F5cqRkCqpWFaKxc+PHRhYmxl IHdpZHRoPScxMDAlJyBzdHls SP1nFk5dROJkPEWerHhsaKVy OiBj v6aoZFJxIRpfGE1irWxhG5Xa lFQ3QJYsd9c9Rn44qYS+PHRk WRA4eOztNLptj363KbFda7ej IDM3 mRAzNXdxENN3A70lo6N0JXWq GEVmFXJ4sEV8tD1egAlsrvaw B2WuhVLiOhI8OHH8vGNzcY5d bGln byoayX7zJwt+N67PMQ3KTDWE IX8CBzm2X3AeUodvcOF+PC90 ZGIuDM86lGRcqFFmr2ickTw4 JzEw SBIaRPZ1wSnyJShye2ChRXPy F34xdIAle1I7WTCzaBiruRWo BtBhlBN7iL3eSYpxgznhr1fp dzsn Bjmyc7zpjy45cF84J86lTGbm GDDkNYL5RPPcBTBwmJxgct9q jH0oYp8+KDgxf0niu7lqpVw4 IjIw FHWvjiMkoVkxTVW9x9GbBt77 M6VgxMiwz5OmXrj2tc60gFTc w6J9pGE9OQfeDEVlcB8zZDyg ZnQ6 MIFdNbTjrO95iTVlZQkgYa5e mKrpwKfoLM9oFQSxrrmtYAEj pO5iYKMllZEeqGmiJX3nMDGg bjtm h608ZoYhNKA2FDKggMDcG6Hx oJ2vSkJnDLIbSVWkT5NueLOc MQjnY123ZVmmUxY3JAEaefRq Y2Fs ASRzpUsgQdN7m2P6Nk1As5Xa eeiiUVJ7PCzmVOA2WaMuYpDq QwL5B1YxNog9IDKakCpdZT9z J3Bh USSiqoazrbnyuJJ1PDTrJHCk sH92fWZuZJkfWs9cy3A9f811 IDSzXNQkpC57Jw1xyHstHCZr dCBU cN5ofyjbb9updbwmKbDjDQRx MKi4RUx0KNUlyXikZrHeEOT3 IkO3CDS7qGAauG7ltTyzijzv dG9w Oyc+J35ioB3hVRF3BAR0yuhd VTKivoRvMG07AC83Q8PkYfcn dGFibGU+MGKbrmLpvMcdZE0x YmFj w0jjh8OpDVlgZ6VuEXWmUHfs Pae4IOMrSTI6eWX3vB1hZMOu JDawr2V1mHI9Q2QmwlRvmf4f b2xs FCAtPZtpN02ynCAsl5V8AOZr aAQ8MTQwtUgjBuSkoT83Lhz+ HIRnjMuzm5VyPgcto8mau7sy dGg9 WoJyRLYxnxEryDtpFXG0n3Qs Dn27S01uWMaoQGRhSOXxORVu QFKquSnbdd2qdV1dBp5+PGNv bCB3 gBW5oG9nIVRhEeV4KFdeC768 YbDhqIDvHjxmg1kpu1cemVx9 EhWdDJTigyVhvCtyGRM9w9Wc Lz48 S14kFRlfEQNtBWBkRTBeNYRq tFefim8kgT6oUr2+PJ7lm9tk is41zW36zZQ+DKEbEJR3qVdr PSdw BLZycO8wZDrdYwC4LWGpZoEg iX12wOSgGMpuIx6mnHsdhWcp VG4yAJRdzfxjq129VqMfu2pg IDEw pIQuSHwpFUK0C44ix3V1BRXc IHEcIFA4uRP2iO3obUfwfroj bGVmdDsgdmVydGljYWwtYWxp Z246 IHRvcDsnPlBhdGllbnQgTmFt IAu3E9ZiKqr1BWUhtIcbKJ5s bSEtAPfdTc8gtSljcAswJX4q NTBp fqneb589ViZgk8fuMACicPBz XXxrVPR1O04xu6Q4AQQqPPDy VBU7gZT7uY2ixDqhheeppXJg dDsg whSocRxlTWoeJVhfC925XUNv xPuaClWcvrKeJEIgmZA9QT50 WY17oQJyj7E6gXR9F9InAGEo bmct osxnzKX3ZCEyXUBjtB87Gt4a xFgrVl6hZOZeWND6BDCngTUs U6XsqU3rNsQxQMTnGWXbN4Rn eHQt JGahU495YSglSlM2OHPowzSd P8QpXUZldOhkZzF6c5S7Yv1P U0M9LT08OR54wTIwk2N0zSO7 J3Bh MBGpnaeoiwilfGC1ITJlSRGj xN49Pd6mqNqnPa0cQMDpUMP4 UVEscYItG0VcyF0uIqTfQHXa MDAw F5WbxABjNHcwE923RSpxNjH9 TZDvljWkA2LoENGngYtoQnR9 b5O8Cc5WPMp0QJ92WU11iFIv c3R5 zDJ5B5IjXEWersdjxpznqPG4 JDSkJBLnfZ90Nm9orYwsZo2p DHZmZGO6WMTzpGEaG8TgxG4g OiAj CWRhFNClE0SaxJJzMXkeE951 XMcfFsG2JDSmelHqZ8JpCUTs wFowNeN2e7P8Fk6ZSCPaCD58 IFR5 zHL7OV55RM60M6PqXmkcrGKm bGU+PHRhYmxlIHdpZHRoPScx LQKyPrHrhInwLI5vTf5nODHn LWNv tHgeqAZzFwXnn9vrNUZqVUlj TS8eqQvuN8OfwHP0EVCtn9m4 Hj98T80cV6OajRH+PGNvbCB3 aWR0 yE9sEpWjYjC4YOgeL311MhUz zEPiChfjd3asx2embYi4XxE2 AVVrflQemOjnWNS9g0QkPr80 Y29s IHdpZHRoPSIxNSUiIHZhbGln db7oxT1iZx9+BJJqwWQ4xVZ6 kB1vOgOnKlB1OVxiL227OfRr cCIv Hlfzr1phv8jtjEt0JwNeNJEk nmHzxObuSWM1d3JeWx76M8Nc qRrxn7WlEsw2wj54vITlp4P4 bGU9 J4PzIBGvbbocrGAltUhvLI5r MFGgdkfyGBKvaZ2bGSWrT2y9 EuWwYxY8DDsnM8IhalS3HBQe cHQg DIqeUEC4K15mv5C5PFQxRYGt MAW1aIK6oA9paBsorokbaWKa zDgbhePnlNxmCTrxUXcmQ864 IHRv cTtwMFPseS7uHTDilTHvuPxd WN1lCUHdgvpfXw7ECKxHCOns Xe5XDXtjtMW+XQOuOVF5kCqh PSdw RHCbpD5cYVFxR6n5BqYtSkQ2 CXceO2QkMFXnyzdpAk22rE6o FvVxHvR8QHqiW9LlzpC1FKBe cHQg ETtnKLB3O85df1J3SMAuCCQd YXS8fJV0nD5xfCqvvlwtaWNe jIbovsYgpEirQTwzDZceS326 IHRv xErySpHdEeS5GvF2SLT4X7Nx Mpi4QIZnwFnbYB8kgFFqCYbf Ob6wvBzzvHjaAQ9jMDIrpazs YWRk sG3vQDOcoGOzbSrqUD4mHKJz pkckj036AuMsXQJ3DJJezUWb N7XbdA4gNxRiSGLfWALzL7Fr eHQt YGezO246PLoqJcW8PIBejaAq V4CdZAAdrXinNyH2j8E9Ak90 NiBZZWFyczwvdGQ+PHRkIHN0 eWxl IAglGFGbxP2tMSSmP8c3JdOh YrO9GNmpY5QdZTHhrfczIy76 aH3xPiHjIuQ7GEvaA0RngiO3 IDEw qBUaXWmpTWY8U19al1V0DHCu YSJaQKF5dWL2tE6vpHvoedyq bGVmdDsgdmVydGljYWwtYWxp Z246 IHRvcDsnPkZlbWFsZTwvdGQ+ DIDiKOS2gDeeKVnuMSYupJ0x ALTqF0g9YlVpTfG1HBfnN6Ms ZGRp iizzYl52dV9uQkKoYiP1VSyx Q1QgkaC9RLGcrUThHDniIZJ8 U31ya3B8UQLcGTVgTHD8zWN7 dC1h bGlnbjogbGVmdDsgdmVydGlj XXvqRXkdE862YZKyyXboVe1r i3FamcC7bR3dHC82AM26Y3Kv Pjwv dGFibGU+PHRhYmxlIHdpZHRo HNohZPCiJrOzwPpeXX7sEd1t VSJuVYHnvBeifOKmFcBhc3uz YXBz IAczFS6eiTbnG5YavMX9DAOp x2u7Ns44G46qW5WdjPJ+PGNv xGJ1iFG5xH1qUyXmEdB4PPgn Z249 AlHatLSnMyqqz4whz4yorVp7 SrLvCVJkswIjlVmbSNI1r2Wq Me48D91bILoqYGVoCRTtMHPv IHZh nIjolx2ihW2oGi4+PGNvbCB3 gNJ4rV9oMrJsHjE8JOcgA582 PiScrZRfEdvhY26kR8EqbXQ+ PHRy Kwy5KEVwqTqeOI5jtUFzZQgq Hn1cJRE3EgGyRxQoQJbaP8Wn PUTuoepcdcaqnAY5VCEmGVWe aW47 Rn4pfIibJz2nMCPlBLK1BXTj rBSdP1XqhB4wEsAiGJIbSRTz B8LkfGThBJthR415NOvgDuX7 IHZl qsYmM1FgJFVzfXbeUwC3u0C9 Wr5MvImwwAOeQG5uMbUlKZl1 M4NzLdc0PSOeaEwmUS2eeKUm ZGlu Gv3msUzzyRjcGR2kGDUbqhni y976RsUyj2xjQLWliFBjFGxr FGK1N18oc9P7QQZiFPBmQMI3 dGV4 iL2yoDnmokasvYUxsXounwLt uEqhEKdhFYmlJ099RGDaxMte VfSHKdp9I3BkEsb1DPWviQjn ZT0n pBIvDGxwNn4lhFkrbOizSG2u KXPyfossr400VnTgy7aaWKBb vKQgLVvuOBB1S41gz7H8OFKr MDAw NMX3tGL7aC1yyPkfekkbbLCl pWjlngDtiFmbIJvvLAynV859 DHSstGacBy0CAkd3V8WfOyl0 ZCBz dFoiSW1yrMMcSCzcNm3ubMmh xXhrGE5iLOMfbavol155XdVi b7tkTVFaqJByMAqyGWJ1R48k b3I6 HSVdTYKvVDG0zCO4xV1xuRcx bjogbGVmdDsgdmVydGljYWwt DDlkP561DMTaaUzwYeAfxYCt Ojwv dGQ+MJ05zu71W2RnGmxeGzi7 KKQpSJK5sVH9dN9tJENhNRxb f2T8eES3Z4SuljNlzx7ps9rc YXBz ZTog (more content not included)... Normal [facility] IntraOperative Documentson 0 09-27-2021 IntraOperative Documents [id number]: 127 Normal [facility] Main OR Intraoperative Recor don 09-22-2021 Main OR Intraoperative Record IntraOp Document Type FT Summary Primary Physician: Cas Severino DO Finalized Date/Time: 09/22/21 09:12:48 Pt. Name: ANNE KEMP/Sex: 1955 Female Med Rec #: [id number] Physician: Cas Severino DO Financial #: [id number] Pt. Type: O Room/Bed: [address] [address] Admit/Disch: 09/19/21 08:30:31 - 09/21/21 12:20:00 Institution: Case Times FT Entry 1 Patient Times In Room 09/19/21 10:58:00 Out Room 09/19/21 13:18:00 Procedure Times Start 09/19/21 11:38:00 Stop 09/19/21 13:13:00 Anesthesia Times Start 09/19/21 10:58:00 Stop 09/19/21 13:18:00 Block Timeout w/ 09/19/21 10:05:00 Anesthesia Last Modified By: Gila Armas RN 09/19/21 13:18:18 General Comments: Block info: Kody Kingston CRNA, RN assisting. [id number], HR 64, SpO2 98% RAEliu Perez RN 09/22/21 Chart opened to review and send charges [facility] Attend[facility] FT Entry 1 Entry 2 Entry 3 Case Attendee Luis M Delgado CRNA, DO, David A Roth CST, Liane E Role Performed SENIOR PHP DEVELOPER Surgeon - Primary MAINTENANCE ELECTRICIAN/SA Time In 09/19/21 10:58:00 09/19/21 10:58:00 09/19/21 10:58:00 Time Out 09/19/21 13:18:00 09/19/21 13:18:00 09/19/21 13:18:00 Procedure KNEE TOTAL ARTHROPLASTY KNEE TOTAL ARTHROPLASTY KNEE TOTAL ARTHROPLASTY REVISION(Left) REVISION(Left) REVISION(Left) Comments Last Modified By: Lizet Armas CST RN, Gila Dover RN 09/22/21 09:09:17 09/19/21 13:24:05 09/19/21 13:24:05 Entry 4 Entry 5 Entry 6 Case Attendee Jaleesa CAMACHO, José Miguel Cristobal CST, Renetta Armas RN, Gila Hebert Role Performed Scrub - Primary Staff - Other Metal Worker - Primary Time In 09/19/21 10:58:00 09/19/21 10:58:00 09/19/21 10:58:00 Time Out 09/19/21 13:18:00 09/19/21 13:18:00 09/19/21 13:18:00 Procedure KNEE TOTAL ARTHROPLASTY KNEE TOTAL ARTHROPLASTY KNEE TOTAL ARTHROPLASTY REVISION(Left) REVISION(Left) REVISION(Left) Comments Second scrub Last Modified By: Pawel RN, Gila Armas RN, Gila Armas RNGila 09/19/21 13:24:05 09/19/21 13:24:05 09/19/21 13:24:05 Entry 7 Case Attendee Ed ROCHA, Renetta Estrada Role Performed Staff - Other Time In 09/19/21 10:58:00 Time Out 09/19/21 13:18:00 Procedure KNEE TOTAL ARTHROPLASTY REVISION(Left) Comments OSC/ Block RN Last Modified By: Gila Armas RN 09/19/21 13:24:05 General Comments: Vijay Peralta [employer] Reps. JRoth RN Perioperative Protocols FT Pre-Care Text: Implements protective measures [...] Out Luis M Delgado CRNA, Given Participants Pocos DO, Pawel Monte MAINTENANCE ELECTRICIAN, Jaleesa Holland CST, Pawel Lincoln RN, Levar Moreland CST, Renetta Joe Time Out Complete 09/19/21 11:32:00 Outcomes Met? Yes Last Modified By: Gila Armas RN 09/19/21 11:43:57 Post-Care Text: The patient is free from signs and symptoms of injury caused by extraneous objects General Comments: Reps present for time out. Chris ROCHAmarine superintendent Information FT Pre-Care Text: Verifies allergies Entry [...] WITH SYNOVECTOMY Primary Procedure Yes Primary Surgeon Cas Severino DO Start 09/19/21 11:38:00 Stop 09/19/21 13:13:00 [...] injury due (more content not included)... Normal [facility] Auto Diffon 09-21-2021 Basophils/100 WBC (Bld) 0.0 % Normal 0.0-2.0 [facility] Comment on above: Order Comment: Order Added by Discern Expert. Performed By: #### 2 999644, 9536681, 2398490, 0225272, 0827630, 58534591 ####[facility] [address] [place] [address] Basophils/Leukocytes Auto (Bld) [Pure # fraction] 0.0 E9/L Normal 0.0-0.2 [facility] Comment on above: Order Comment: Order Added by Kylee Expert. Performed By: #### 2 215236, 7761922, 1826066, 1703204, 6642390, 91394083 ####[facility] [address] [place] [address] Eosinophils/100 WBC (Bld) 0.2 % Normal 0.0-8.0 [facility] Comment on above: Order Comment: Order Added by Discern Expert. Performed By: #### 2 928413, 2196815, 7885379, 5518188, 5093888, 62546641 ####[address] [place] [address] Eosinophils/Leukocyt es Auto (Bld) [Pure # fraction] 0.0 E9/L Normal 0.0-0.5 [facility] Comment on above: Order Comment: Order Added by Kylee Expert. Performed By: #### 2 733414, 0076856, 1481026, 1552375, 9126501, 75354935 ####[address] [address] Lymphocytes/100 WBC (Bld) 7.3 % Low 14.0-50.0 [facility] Comment on above: Order Comment: Order Added by Kylee Expert. Performed By: #### 2 263679, 1369131, 5420695, 7218719, 6981687, 28997722 ####[address] [address] Lymphocytes/Leukocyt es Auto (Bld) [Pure # fraction] 1.0 E9/L Normal 1.0-4.0 [facility] Comment on above: Order Comment: Order Added by Kylee Expert. Performed By: #### 2 484445, 6184529, 3536944, 1811835, 2163701, 15786518 ####[facility] [address] [place] [address] Monocytes/100 WBC (Bld) 11.0 % Normal 4.0-14.0 [facility] Comment on above: Order Comment: Order Added by Discern Expert. Performed By: #### 2 098766, 1039140, 8900936, 9481521, 4952809, 07594953 ####[address] [place] [address] Monocytes/Leukocytes Auto (Bld) [Pure # fraction] 1.5 E9/L High 0.2-1.0 [facility] Comment on above: Order Comment: Order Added by Discern Expert. Performed By: #### 2 090102, 7994079, 1232225, 1747571, 8277659, 31844019 ####[address] [address] Neutrophils/100 WBC (Bld) 81.5 % High 36.0-75.0 [facility] Comment on above: Order Comment: Order Added by Discern Expert. Performed By: #### 2 405020, 1750820, 3456409, 9479465, 2850357, 82078557 ####[address] [address] Neutrophils/Leukocyt es Auto (Bld) [Pure # fraction] 10.8 E9/L High 2.0-7.5 [facility] Comment on above: Order Comment: Order Added by Discern Expert. Performed By: #### 2 970568, 5521168, 5177782, 1983496, 3908090, 60249841 ####[address] [place] [address] BUNon 09-21-2021 Urea nitrogen [Mass/Vol] 7 mg/dL Normal 5-21 [facility] Comment on above: Performed By: #### 2 182647, 8913849, 6758886, 5476422, 3177258, 50990074 ####[address] [address] CBC w/ Auto Diffon Erythrocyte distribution width (RBC) [Ratio] 13.4 % Normal 10.9-14.2 [facility] Comment on above: Performed By: #### 2 441385, 1739626, 4853094, 3705089, 0442539, 26032512 ####[facility] [address] [place] [address] Hematocrit (Bld) [Volume fraction] 34.6 % Normal 34.0-46.0 [facility] Comment on above: Performed By: #### 2 909968, 2718647, 4817815, 3201576, 4240589, 40598143 ####[address] [address] Hemoglobin (Bld) [Mass/Vol] 11.9 g/dL Low 12.0-16.0 [facility] Comment on above: Performed By: #### 2 182113, 0381856, 5596401, 9163394, 4504588, 59815480 ####[address] [address] MCH (RBC) [Entitic mass] 30.7 pg Normal 27.0-34.0 [facility] Comment on above: Performed By: #### 2 640845, 4826460, 6815506, 8019705, 8928337, 79947107 ####[address] [address] MCHC (RBC) [Mass/Vol] 34.5 g/dL Normal 31.4-36.0 [facility] Comment on above: Performed By: #### 2 178011, 6233355, 4117560, 0675789, 3693842, 87409740 ####[address] [address] MCV (RBC) [Entitic vol] 88.9 fL Normal 80.0-100.0 [facility] Comment on above: Performed By: #### 2 925238, 6109630, 3643248, 2357401, 1263090, 55547272 ####[address] [address] Platelet mean volume (Bld) [Entitic vol] 6.9 fL Normal 6.4-10.8 [facility] Comment on above: Performed By: #### 2 958951, 8294566, 0307552, 7423640, 0785295, 00516593 ####[facility] [address] [place] [address] Platelets (Bld) [#/Vol] 337.0 E9/L Normal 150.0-500.0 [facility] Comment on above: Performed By: #### 2 427435, 5779807, 2313594, 6932567, 4971509, 36290025 ####[facility] [address] [place] [address] RBC (Bld) [#/Vol] 3.9 E12/L Low 4.3-5.9 [facility] Comment on above: Performed By: #### 2 838310, 7286165, 8377803, 6276333, 5464946, 92985303 ####[facility] [address] [place] [address] WBC corrected for nucl RBC Auto (Bld) [#/Vol] 13.3 E9/L High 4.0-11.0 [facility] Comment on above: Performed By: #### 2 840565, 4693114, 6264615, 6338106, 9682294, 18321499 ####[facility] [address] [place] [address] CHEMISTRYOrdered By: SYSTEM SYSTEM on 09-21-2021 Anion gap [Moles/Vol] 15 mmol/L Normal 6 - 16 mEq/L [facility] Remisol Chloride [Moles/Vol] 95 mmol/L Low 101 - 1 11 mmol/L [facility] [place] [place] Remisol CO2 [Moles/Vol] 25 mmol/L Normal 21 - 31 mmol/L [facility] Remisol Creatinine [Mass/Vol] 0.6 mg/dL Normal 0.5 - 1.3 mg/dL [facility] Remisol GFR/1.73 sq M.predicted among blacks MDRD (S/P/Bld) [Vol rate/Area] mL/min/1.73 m2 Normal >=59mL/min/ 1.73 m2 [facility] Chem S GFR/1.73 sq M.predicted among non-blacks MDRD (S/P/Bld) [Vol rate/Area] mL/min/1.73 m2 Normal >=59mL/min/ 1.73 m2 [facility] [place] Chem S Potassium [Moles/Vol] 4.1 mmol/L Normal 3.5 - 5.3 mmol/L [facility] [place] [place] Remisol Sodium [Moles/Vol] 131 mmol/L Low 135 - 145 mmol/L [facility] [place] Remisol Urea nitrogen [Mass/Vol] 7 mg/dL Normal 5 - 21 mg/dL [facility] Remisol Creatinineon 09-21-2021 Creatinine [Mass/Vol] 0.6 mg/dL Normal 0.5-1.3 [facility] Comment on above: Performed By: #### 2 [id number], [id number], [id number], [id number], [id number], [id number] ####[facility] [address] [place] [address] Discharge Instructionson Discharge Instructions [id number]: 127 Normal [facility] Discharge Note-Nursingon Discharge Note-Nursing ANNE KEMP :1955 Visit Date:09/19/2021 Inpatient Discharge Instructions Your Care Team Admitting Physician - aCs Severino DO Consulting Physician - Jewels DOMINGUEZ [...] When: 10/18/2021 03:00 PM EDT Where: [address] [place] [address] Business (1) Follow Up with YARITZA MUELLER When: In 0 days Where: [address] [place] [address] [phone] Business (1) Medications What How Much When [...] Twice a day (after meals) Pickup at [address] NEEDED Unchanged cannabidiol By Mouth Every day 09/22 @ 9 AM Unchanged cholecalciferol (Vitamin D 1000 intl units (25 mcg) Tab) 1 Tablets By Mouth Every day 09/22 @ 9 AM Unchanged docusate (Colace 100 mg Cap) 1 Capsules By Mouth 2 times a day as needed for for constipation Pickup at [address] Unchanged hydroxychloroquine (hydroxychloroquine 200 mg Tab) [...] 1,000 Milligram By Mouth Every day 09/22 AM Unchanged oxycodone (oxyCODONE 5 mg Tab) 1 Tablets By Mouth Every 6 hours 1-2 po q4-6 hrs prn pain Dx: M17.12, Z96.652 Duration: 7days Disregard si po q6hr prn pain Pickup at [address] NEEDED Unchanged quetiapine (SEROquel 25 mg Tab) 09/22 @ 9 PM Unchanged Turmeric (turmeric 500 mg oral capsule) 1 Capsules By Mouth Every day 09/22 AM Unchanged venlafaxine (venlafaxine 150 mg Cap-ER) 1 Capsules By Mouth Every day 09/22 @ 9 AM Pharmacy Information [address] [place], [place] [id number] [phone] Test Results CBC BMP WBC: 13.3 E9/L [...] POSTERIOR STABIL (more content not included)... Normal [facility] HEMATOLOGYOrdered By: SYSTEM SYSTEM on 09-21-2021 Basophils/100 [...] 6.9 fL Normal 6.4 - 10.8 fL [facility] HemeAutoSS Platelets (Bld) [#/Vol] 337.0 E9/L Normal 150.0 - 500.0 E9/L [facility] HemeAutoSS RBC (Bld) [#/Vol] 3.9 E12/L Low 4.3 - 5.9 E12/L [facility] HemeAutoSS WBC corrected for nucl RBC Auto (Bld) [#/Vol] 13.3 E9/L High 4.0 - 11.0 E9/L [facility] HemeAutoSS Interdisciplinary Note - Nick e Manageron 09-21-2021 Interdisciplinary Note - 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 [...] her FWW is present. CRM following. Normal [facility] Comment on above: Result Comment: Elec tronically Signed By: Payton Ordaz\.br\Date and Time Signed: 09/21/21 09:39 EDT [place] 09-21-2021 Anion gap [Moles/Vol] 15 mmol/L Normal 6-16 [facility] Comment on above: Performed By: #### 2 [id number], [id number], [id number], [id number], [id number], [id number] ####[facility] [address] [place] [address] Chloride [Moles/Vol] 95 mmol/L Low 101-111 [facility] Comment on above: Performed By: #### 2 [id number], [id number], 5015259, [id number], [id number], [id number] ####[facility] [address] [place] [address] CO2 [Moles/Vol] 25 mmol/L Normal 21-31 [facility] Comment on above: Performed By: #### 2 [id number], [id number], 0235178, 1188013, [id number], [id number] ####[facility] [address] [place] [address] Potassium [Moles/Vol] 4.1 mmol/L Normal 3.5-5.3 [facility] Comment on above: Performed By: #### 2 [id number], 5294227, [id number], 3473804, [id number], [id number] ####[facility] [address] [place] [address] Sodium [Moles/Vol] 131 mmol/L Low 135-145 [facility] Comment on above: Performed By: #### 2 522607, [id number], 8848961, [id number], 1517920, [id number] ####[facility] [address] [place] [address] Operative Reporton Operative Report SURGERY DATE: 2021 TEAMCENTER SOLUTION ARCHITECT: Lizet Armas, Certified Litigation Coordinator PREOPERATIVE DIAGNOSIS: Failed left knee medial unicompartmental [...] is prep (more content not included)... Normal [facility] Comment on above: Result Comment: [...] made to ensure accuracy, however, inadvertently computerized ic design manager mistakes may be present. Subjective She states [...] Lymph Auto: 7.3 % Low (09/21/21 04:41:00) Ray Auto: 11 % (09/21/21 04:41:00) Eos Auto: 0.2 % (09/21/21 04:41:00) Basophil Auto: 0 % (09/21/21 04:41:00) Neutro Absolute: 10.8 E9/L High (09/21/21 04:41:00) Lymph Absolute: 1 E9/L (09/21/21 04:41:00) Ray Absolute: 1.5 E9/L High (09/21/21 04:41:00) Eos Absolute: 0 E9/L (09/21/21 04:41:00) Basophil Absol (more content not included)... Normal [facility] Comment on above: Result Comment: Elec tronically Signed By: Ashlyn PETERSON\.br\Date and Time Signed: 09/21/21 09:03 EDT\.br\Electronically Co-Signed By: Brijesh BARRETT MD\.br\Date and Time Co-Signed: 09/21/21 09:52 EDT eGFRon 09-21-2021 GFR/1.73 sq M.predicted among blacks MDRD (S/P/Bld) [Vol rate/Area] mL/min/{1.73_m2} Normal >=59 [facility] Comment on above: Order Comment: Order added by Discern Expert. Result Comment: eGFR is race adjusted. AA=. Performed By: #### 2 734009, 4026451, 3499409, 9803677, 0947385, 78514468 ####[facility] [address] [place] [address] GFR/1.73 sq M.predicted among non-blacks MDRD (S/P/Bld) [Vol rate/Area] mL/min/{1.73_m2} Normal >=59 [facility] Comment on above: Order Comment: Order added by Discern Expert. Result Comment: Tourist Information Officer josesito kidney disease could be indicated at eGFR's of less than 60 mL/min/1.73m2. Kidney failure is indicated at less than 15 mL/min/1.73m2. Performed By: #### 2 928022, 4457124, 3569498, 4813492, 9516948, 02760968 ####[facility] [address] [place] [address] Auto Diffon 09-20-2021 Basophils/100 WBC (Bld) 0.2 % Normal 0.0-2.0 [facility] Comment on above: Order Comment: Order Added by Discern Expert. Performed By: #### 2 210975, 3006362, 3882799, 07519668, 6689503, 7574234 ####[facility] [address] [place] [address] Basophils/Leukocytes Auto (Bld) [Pure # fraction] 0.0 E9/L Normal 0.0-0.2 [facility] Comment on above: Order Comment: Order Added by Discern Expert. Performed By: #### 2 746245, 8060568, 6769538, 15980112, 7466674, 1558847 ####[facility] [address] [place] [address] Eosinophils/100 WBC (Bld) 0.2 % Normal 0.0-8.0 [facility] Comment on above: Order Comment: Order Added by Discern Expert. Performed By: #### 2 010143, 8591080, 2221323, 71618201, 8838699, 1788401 ####[address] [place] [address] Eosinophils/Leukocyt es Auto (Bld) [Pure # fraction] 0.0 E9/L Normal 0.0-0.5 [facility] Comment on above: Order Comment: Order Added by Discern Expert. Performed By: #### 2 406335, 2081869, 9067935, 63878123, 4543438, 1774153 ####[address] [address] Lymphocytes/100 WBC (Bld) 15.6 % Normal 14.0-50.0 [facility] Comment on above: Order Comment: Order Added by Discern Expert. Performed By: #### 2 285274, 2045381, 6145937, 40703621, 7935978, 1267991 ####[address] [address] Lymphocytes/Leukocyt es Auto (Bld) [Pure # fraction] 1.4 E9/L Normal 1.0-4.0 [facility] Comment on above: Order Comment: Order Added by Kylee Expert. Performed By: #### 2 366953, 8210952, 6345369, 40540186, 6450299, 0072515 ####[address] [place] [address] Monocytes/100 WBC (Bld) 12.8 % Normal 4.0-14.0 [facility] Comment on above: Order Comment: Order Added by Discern Expert. Performed By: #### 2 435329, 1728676, 7504166, 30302094, 0369268, 7069600 ####[address] [address] Monocytes/Leukocytes Auto (Bld) [Pure # fraction] 1.1 E9/L High 0.2-1.0 [facility] Comment on above: Order Comment: Order Added by Discern Expert. Performed By: #### 2 653807, 1535067, 7540336, 37208321, 6971623, 2205854 ####[facility] [address] [place] [address] Neutrophils/100 WBC (Bld) 71.2 % Normal 36.0-75.0 [facility] Comment on above: Order Comment: Order Added by Discern Expert. Performed By: #### 2 128366, 6568823, 3858744, 69322554, 1519318, 8701520 ####[facility] [address] [place] [address] Neutrophils/Leukocyt es Auto (Bld) [Pure # fraction] 6.4 E9/L Normal 2.0-7.5 [facility] Comment on above: Order Comment: Order Added by Discern Expert. Performed By: #### 2 521793, 1205900, 0395273, 28960799, 5617078, 7079280 ####[facility] [address] [place] [address] BUNon 09-20-2021 Urea nitrogen [Mass/Vol] 9 mg/dL Normal 5-21 [facility] Comment on above: Performed By: #### 2 911655, 2778723, 4385136, 35439064, 0418692, 9001484 ####[facility] [address] [place] [address] Blood Bank Slipon 09-20-2021 Blood Bank Slip [id number]: 127 Normal [facility] CBC w/ Auto Diffon Erythrocyte distribution width (RBC) [Ratio] 13.5 % Normal 10.9-14.2 [facility] Comment on above: Performed By: #### 2 161916, 6224369, 4897271, 64512473, 5200351, 5364171 ####[facility] [address] [place] [address] Hematocrit (Bld) [Volume fraction] 29.0 % Low 34.0-46.0 [facility] Comment on above: Performed By: #### 2 560431, 0892624, 8174403, 92598928, 5912193, 1559863 ####[address] [place] [address] Hemoglobin (Bld) [Mass/Vol] 10.1 g/dL Low 12.0-16.0 [facility] Comment on above: Performed By: #### 2 621048, 9097570, 9834805, 01118264, 1893735, 0835746 ####[address] [address] MCH (RBC) [Entitic mass] 31.3 pg Normal 27.0-34.0 [facility] Comment on above: Performed By: #### 2 191279, 6352490, 5578386, 99283344, 8817662, 8814650 ####[address] [address] MCHC (RBC) [Mass/Vol] 34.8 g/dL Normal 31.4-36.0 [facility] Comment on above: Performed By: #### 2 465581, 0780311, 3327069, 58753475, 8985283, 9738941 ####[address] [address] MCV (RBC) [Entitic vol] 89.7 fL Normal 80.0-100.0 [facility] Comment on above: Performed By: #### 2 993362, 8293926, 6834583, 72302247, 7618187, 6725723 ####[address] [address] Platelet mean volume (Bld) [Entitic vol] 6.7 fL Normal 6.4-10.8 [facility] Comment on above: Performed By: #### 2 367221, 9107313, 8601223, 14475098, 9411102, 4025453 ####[address] [address] Platelets (Bld) [#/Vol] 294.0 E9/L Normal 150.0-500.0 [facility] Comment on above: Performed By: #### 2 823070, 6915249, 8402503, 75660831, 2089507, 7808941 ####[facility] [address] [place] [address] RBC (Bld) [#/Vol] 3.2 E12/L Low 4.3-5.9 [facility] Comment on above: Performed By: #### 2 433381, 0905457, 2980178, 03248210, 6572526, 6528778 ####[facility] [address] [place] [address] WBC corrected for nucl RBC Auto (Bld) [#/Vol] 8.9 E9/L Normal 4.0-11.0 [facility] Comment on above: Performed By: #### 2 585302, 5578029, 3574130, 66715444, 8528124, 0564589 ####[facility] [address] [place] [address] CHEMISTRYOrdered By: SYSTEM SYSTEM on 09-20-2021 Anion gap [Moles/Vol] 8 mmol/L Normal 6 - 16 mEq/L [facility] Remisol Chloride [Moles/Vol] 106 mmol/L Normal 101 - 1 11 mmol/L [facility] Remisol CO2 [Moles/Vol] 28 mmol/L Normal 21 - 31 mmol/L [facility] Remisol Creatinine [Mass/Vol] 0.8 mg/dL Normal 0.5 - 1.3 mg/dL [facility] Remisol GFR/1.73 sq M.predicted among blacks MDRD (S/P/Bld) [Vol rate/Area] mL/min/1.73 m2 Normal >=59mL/min/ 1.73 m2 [facility] Chem S GFR/1.73 sq M.predicted among non-blacks MDRD (S/P/Bld) [Vol rate/Area] mL/min/1.73 m2 Normal >=59mL/min/ 1.73 m2 [facility] Chem S Potassium [Moles/Vol] 4.2 mmol/L Normal 3.5 - 5.3 mmol/L [facility] Remisol Sodium [Moles/Vol] 138 mmol/L Normal 135 - 145 mmol/L [facility] Remisol Urea nitrogen [Mass/Vol] 9 mg/dL Normal 5 - 21 mg/dL [facility] Remisol Consent for Anesthesiaon Consent for Anesthesia [id number]#1.00C D:127 Normal [facility] Creatinineon 09-20-2021 Creatinine [Mass/Vol] 0.8 mg/dL Normal 0.5-1.3 [facility] Comment on above: Performed By: #### 2 431315, 7938289, 4581965, 79255977, 8775397, 4966273 ####[facility] [address] [place] [address] HEMATOLOGYOrdered By: SYSTEM SYSTEM on 09-20-2021 Basophils/100 [...] 6.7 fL Normal 6.4 - 10.8 fL [facility] HemeAutoSS Platelets (Bld) [#/Vol] 294.0 E9/L Normal 150.0 - 500.0 E9/L [facility] HemeAutoSS RBC (Bld) [#/Vol] 3.2 E12/L Low 4.3 - 5.9 E12/L [facility] HemeAutoSS WBC corrected for nucl RBC Auto (Bld) [#/Vol] 8.9 E9/L Normal 4.0 - 11.0 E9/L [facility] HemeAutoSS Interdisciplinary Note - Nick e Manageron 09-20-2021 Interdisciplinary Note - 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 [...] Patient had elevated BP, uncontrolled pain Normal [facility] Comment on above: Result Comment: Elec tronically Signed By: Payton Ordza\.br\Date and Time Signed: 09/20/21 15:12 EDT Interdisciplinary [...] inpatient OT services at this time. Normal [facility] IntraOperative Documentson 0 09-20-2021 IntraOperative Documents [id number]#1.00C D:127 Normal [facility] IntraOperative Documents [id number]#1.00C D:127 Normal [facility] Lyteson 09-20-2021 Anion gap [Moles/Vol] 8 mmol/L Normal 6-16 [facility] Comment on above: Performed By: #### 2 978881, 4616491, 8042164, 89630309, 2690083, 0483367 ####[facility] [address] [place] [address] Chloride [Moles/Vol] 106 mmol/L Normal 101-111 [facility] Comment on above: Performed By: #### 2 967431, 4540110, 6323382, 21459493, 8099449, 6743090 ####[facility] [address] [place] [address] CO2 [Moles/Vol] 28 mmol/L Normal 21-31 [facility] Comment on above: Performed By: #### 2 020530, 6380917, 9658313, 11996467, 6548419, 6852442 ####[facility] [address] [place] [address] Potassium [Moles/Vol] 4.2 mmol/L Normal 3.5-5.3 [facility] Comment on above: Performed By: #### 2 066612, 6352950, 6592575, 31532667, 4743367, 6104191 ####[facility] [address] [place] [address] Sodium [Moles/Vol] 138 mmol/L Normal 135-145 [facility] Comment on above: Performed By: #### 2 970138, 9870262, 0246157, 98436370, 9791558, 5254397 ####[facility] [address] [place] [address] Operative Reporton Operative Report SURGERY DATE: 2021 PREOPERATIVE DIAGNOSIS: [...] undergo general anesthesia for the proposed procedure. ALYSE Campuzano Dictated: 09/19/2021 [id number] Transcribed: 09/19/2021 Normal [facility] Comment on above: Result Comment: Elec tronically Signed By: Luis M Delgado CRNA\.br\Date and Time Signed: 09/20/21 08:18 EDT Preoperative Documentson Preoperative Documents [id number]#1.00C D:127 Normal [facility] Preoperative Documents [id number]#1.00C D:127 Normal [facility] eGFRon 09-20-2021 GFR/1.73 sq M.predicted among blacks MDRD (S/P/Bld) [Vol rate/Area] mL/min/{1.73_m2} Normal >=59 [facility] Comment on above: Order Comment: Order added by Discern Expert. Result Comment: eGFR is race adjusted. AA=. Performed By: #### 2 699000, 5146071, 0096486, 81361463, 6591928, 3467368 ####[facility] [address] [place] [address] GFR/1.73 sq M.predicted among non-blacks MDRD (S/P/Bld) [Vol rate/Area] mL/min/{1.73_m2} Normal >=59 [facility] Comment on above: Order Comment: Order added by Discern Expert. Result Comment: Tourist Information Officer josesito kidney disease could be indicated at eGFR's of less than 60 mL/min/1.73m2. Kidney failure is indicated at less than 15 mL/min/1.73m2. Performed By: #### 2 149593, 0100934, 4532065, 07515584, 6285358, 5850117 ####[facility] [address] [place] [address] ABO/Rhon 09-19-2021 ABO/Rh Positive Invalid Interpretation Code [facility] Comment on above: Performed By: #### 1 6219129, 34612594, 44024302, 5225420 ####[facility] [address] [place] [address] ABO/Rh History Checkon 09-19 ABO/Rh History Check Verified Hx Blood Type Normal [facility] Comment on above: Performed By: #### 1 4346073, 65375291, 58362007, 6500916 ####[facility] [address] [place] [address] ABSCon 09-19-2021 ABSC Gel Interp Negative Normal [facility] Comment on above: Performed By: #### 1 4330576, 47921728, 17303624, 2957630 ####[facility] [address] [place] [address] BLOOD BANKOrdered By: Angelica ellis on 09-19-2021 ABO/Rh Interp Positive Invalid Interpretation Code [facility] BB Subsection ABSC Gel Interp Negative (09/19/21 9:00 AM) Normal [facility] BB Subsection Blood Bank ID#on 09-19-2021 BBID# [id number] Invalid Interpretation Code [facility] Comment on above: Performed By: #### 1 3436987, 22601917, 60087350, 4250536 ####[facility] [address] [place] [address] Coding Summary.on 09-19-2021 Coding Summary. CD:[id number]:[id number] Gh0b Ww+PGhlYWQ+VS5AGFAaT86ii RXdeM0HP9lBGZ1WHICBSDXFG Q5JDT6quJF7PSboU5EttjTf UcsosJBqSP63JCm9UVR1lBpe UJxfoF7nkTXrX0r1ErMtSW50 aY48ATsjONDfItP7CrJwmhaa bWFy A1dwYaKqfHQwHgv+PHRhYmxl IHdpZHRoPScxMDAlJyBzdHls OM4fUg0gMAEeWAXjnNmktACk OiBj x3fdEEVeWXawLR8seAymC4Sk mMB6QPRjl6o2Nd62iSZ+PHRk EFR0eFkgIDwfs751UkPaw9nk IDM3 cMYvVLjhXGK2W62di4R9QVYe OTEnHWU4iMK9xQ5woSrkqond B1KlwDNiLgK3XYV7zTNsnB7o bGln buvhpD1xNww+B66IRC4IRQKT UI1FXlm9Y4RvGvaryTC+PC90 PVGrIM66tWXbrPJxk6synKr2 JzEw VVWkQLL3sDzkDWekt4LnTMVw T69mjQFbi3V3NPOntIeusPJz BlLeoLU9bZ1mIHhknbisk4yg dzsn Sjjve3sozd34cS74B54gALew QFKqJHH4FXFrTSJfdDpmfm8b hP5xTg6+UQwch2xlq0myxKh5 IjIw YYMovyOrlEraJEH1o4CnXb90 R2IuaEflw1ZyTmt0va02vDNi a3U3qUZ6RMflQULucA7yVJin ZnQ6 KMBfFkAnpI78pPKgIDjiHi2h eFfqoZpcXR6aCEUveyljKEDj dC9oUNUmbGXyuTmmKT0uWLDa bjtm t046FaHqVRH2JHMsbRHzC4Ux mJ8vVnRdOEWoAOMaK3SnjWEn GAxoN405TYijZbG0UEAgojWg Y2Fs KQJivXjmCfY3l7Y4Nh0Mt3Af cljlNRQ7GBijGGB4WjLsDzEx ZoN9P9KbHec5NPFpkLnqEX7k J3Bh XVMvduupurtrfVC5WJTkJIGq kH26gQHeIHfmSe1ae1A1u764 TDQbUGXwxI59Gr8jeLguZMZs dCBU wI8sxuetv5fivkcmNvBlHBEf OHc2JJu6VCRopRneApPcHCM9 VwW9JZP9xERaeX2knSurpljq dG9w Oyc+A06glB4xMJS2XXE7zfvb OJKodfYjYV03HQ75N9WyMvyq dGFibGU+DCRhecFmfSlzJC9o YmFj g7kna4MrJOudT0ClTPCyRDgy Won7CHRlKQG2uOQ5lI1fFYAq RUmpn4X8lDS5H1QldkSska2l b2xs VZTcCDfcF64guJNtc7W2JVSo uDU2OLXktIdhDbKqmV03Haf+ PDPglAqmf4NsAlhxa8qjx4ro dGg9 SsGrBCFarnNchBmhWRF4r2Ud Wt62W93hGDrvADUiFGKnGYXz RNBudNljrp6opJ6qCk8+PGNv bCB3 jXS5kX7aAKGaXjF6WEsbR394 XhSkcMNaCwyjl4iyt8srtJq5 UgImDHIielVqsPavZZJ3o0Dx Lz48 S61cLAasZMWwFAAxPCFcOBSw lXrefb8adD7yYo7+HF6qx3ts uy27qV63qTO+ZTJpZLU7jQqr PSdw YQLbqG5iDBozQaG0CVYoJnAq vA34dLIhRNlgSb7pvSgzpFlu UO8hHWIsttaav696LhIaq2nz IDEw xHErFClqZKP0F53js1U5PAYt WLZsTPM8eLX6mY0buJyzyelj bGVmdDsgdmVydGljYWwtYWxp Z246 IHRvcDsnPlBhdGllbnQgTmFt PTv5Y2NlHjl1YOPpsTvhDN8a mIEvUAxmQz6gnQmpmJtoPN1i NTBp fqxwo666ImYit2sdLXBngNFu MPctCZW3V62pn9I5DPLsDBYt EUW8uNZ1bY6dmOxvnsfniHBf dDsg sqQylNskPTlfDCmgL160CUGt jCcbJqBxalOtFHHbdSL0PY33 LD79zKQsf4F8rKR7E3XmTLLw bmct yqqzyZS2QWDlGFYdhZ04Gm7e vBfrJv7fFEHiPUV0YOHvvRGz U4CqhB5vTjDbQGCxNRNoJ4Yl eHQt KAeaZ466SQtsPlF5VCXexiUg P1HmNMPzoKprIrH5j8C5Gw5C T4N0VL28JR32iGOsb1I9rVZ5 J3Bh THDimplphumhlCY8WJGgWKWh oS95Cn2aaObkBl5vISDyTXM0 XGWrlALwF0NwtK9qDqVuOCSw MDAw W2AiqZSxRAciP483FAauCgX5 FSFasfQaM3XgVALcyVttQgP6 n2B7Rp8ZXEx2TH49PG65gTVv c3R5 rSF6E2BlSMTaxheqlksmmLG7 XRHzVLQoyT77Qe0oxHjuCa0j MLYaTAC3HNFejDCrM3OpyU3s OiAj FXCoYGYmO5NoeAZoAAhgJ712 EPezUmR8KECsosWzB5AmTYXb zIfzArA6r1G4Er8BPYVsOK44 IFR5 gGD0JE95YF70R5OrKxwmuDFc bGU+PHRhYmxlIHdpZHRoPScx OBIkHvDpsLmqVX3xGz3bKDZt LWNv yMwxzHPoSyInh8ocLMHmYJbb OU6owPzoV6HtdQS8TEFzm6i3 Er88D04zY1PgqGX+PGNvbCB3 aWR0 eA8yLyQoSzY6NCbiR774QsAz dBJzPsiho6han0hixGu6LqA3 EIWblfIqsDpzYYR5v7PkZk34 Y29s IHdpZHRoPSIxNSUiIHZhbGln tr5kpL1pUe6+CKSttJB6fLV3 lH0kDcTbWfX7RHuvG573CkQj cCIv Oynbd4kri0oleSw3PrMbFMSn zkJrjIzjTSW1d4BeMw93U0Ss sJytb4XdEmv0db09zMKqp8K2 bGU9 C1RtRNEzyknzwAHvfYgdZY7z AAGaruocZLGenP0hQYBwH5c9 IpLoTzR5RNbqO1RnhsU1MHTl cHQg FCulBCF5N81my6H7SPVmLTIj EQO6xZZ0oD6nsFmplpdieZLz hGrploJvgAtfNVmlXFigN550 IHRv wDqfGHWatV0tLACvxPJgvYee IJ3lSEDioaslWn5HBZjUGWul Ec5ADYztqEN+YVGjKZN1mDpq PSdw EPKybZ1iHOWxS1z1BcLqFsW5 UVesT9KgXSZvxhniZb64zA5u FqLuRfF8LHrhI5JteyK4HZWt cHQg KNtqHRI2Q12aj4S4WWCtGSIy LSI6iNJ9zR3pnQlqbnvamIDy kFswhjXzbDluCYpzEUecI448 IHRv vUawCoKwSgY3VlG3CWN4G4Az Hro6HHZaiUwyAM8atQLsLNno Da9boDnbeKhmEX4pNQJgygbm YWRk hP1cSLPbrVLckZrbDK4mEHZn wwsic529JqZoKUW9DYYybGJp S4EhmV8iTtWrZZLkBYYsJ7Dl eHQt FJtxW976WCrjBkZ9NEHarpLc A9QzMPOyfRfuVjF1c1P1Ql23 NiBZZWFyczwvdGQ+PHRkIHN0 eWxl LVpvQVWhuJ7uFYJsA8r3LmJh BoZ0LJsaE7QvAGYkpigjXi50 iL4hOdFbMbU5LUfxR1DtiwE3 IDEw xKCrVKhqZTP5A57zn0F1PLHq FGOmLWT7yOJ7hX2rpDhbvaxv bGVmdDsgdmVydGljYWwtYWxp Z246 IHRvcDsnPkZlbWFsZTwvdGQ+ BSPhLTS9mKakYGutVNSubQ6c IVKvV9b6BhRgHyL9LYzmM0Za ZGRp lclvOs00fC4bZvCnXbE3KUod K0EsjpA8XAXsxCJnMKvgWVT4 K87jw9I8FYUhZGQoFBH8kQV7 dC1h bGlnbjogbGVmdDsgdmVydGlj VHfiQVglX797NLZtxOdlQt30 jUFbxGcufdF6I5BmEdkxkKD+ PC90 IWBuQU38mVEvqAMnc9vpqOs6 JrAiEBFiCDN1gIozBRmzr3Dr AHRzW96ohPIpi4K7KXGzyIda cHNl EsRtoFV0iG8dXZldapnmp5oh rqcoUdpfl8dbya84tO96S00d IHdpZHRoPSIzMCUiIHZhbGln bj0i yE6bBf9+SSTpqZC6tQG0qV3x OlCeOaL7QLmaR048MhOznNOa Kslpb7svk0rudFe7NwErUXJt dmFs uMiuLLZ0y8AaYk10Z05eHLvq JFVsFNRzRKQuHEDhpBtvtb7f eP3pFh7+RU9ht0yadp23rU00 dHI+ NWJuQTV0iNhjSPfyEFPvbL3p DLknLhQ1FIXxSyMufG48aNRe ILzpGw7apKcfaIoxHR3xAIWc bjtm g157OgBnu3nuGECamEDmHKuf HUQ4Q79zg5E7URFaOJKyJRF9 hYU4mD3sfMnecgqzlKZjzNik dmVy mDpkYEzaLFxpO087RGVlpEwh KeWvqYNqO8jhieJRVO4eCwvd dGQ+OZBpSOF8lGukYHccNYAk aW5n EWXuZ5r0NlAwAsI5HEsuY7Fp fqW8CCEksQJrNJGsmKBCfV7j bmuqg4yxwqedSjVjDIQdVLr7 ZXh0 IPMuaRsxDzNzVFD2GzI3GTK6 vIIuyV0hjYzgdcegvC5mMiz+ RklOOjwvdGQ+AABlMAF8oFxw PSdw OSLxcX4gBYAmB6p9WzAkNwH5 WOgfD6VjjvD1ZDPefXWxIPMl mJQCoW8lzuipo5rvrzmuRxRb MDAw VKm3IMs4EPCqoNraRwDcMGP2 AuF0IRR8tVVzhE4ddZkhcbkw xG3cVpr+TVJOOjwvdGQ+PHRk IHN0 qYeqOKjeJHBvgW6cKUZqT5f8 MmAsRdP7ZXjwQ0BvcvQ0TRWk vPMjSIGdfXNUgY6vkldac6zp cjog IuZwHWDmIJz0TOt1AKPzcOfd SdArVPB2OsX7TUV5eVGgnA0i jBnzkjyvgU8nYfz+MEM2CFH6 PC90 OP20Y4ZsEhagyIFujEO+PHRh YmxlIHdpZHRoPScxMDAlJyBz gJooMI6uXh9rGMUwXKYnmJon cHNl OiBj (more content not included)... 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 [...] here. CRM called and left message on [employer] line as well as sent email to [employer] for the script for the walker to be sent to [facility]. Plan is for DC 4.13.22 with [facility] program. CRM following [facility] Comment on above: Result Comment: Elec tronically Signed By: Payton Ordaz\.caro\Date and Time Signed: 09/19/21 15:25 EDT Main OR PACU I Recordon 09-08 Main OR PACU I Record PACU Phase I Document Type FT Summary Primary Physician: Cas Severino DO Finalized Date/Time: 09/19/21 14:02:37 Pt. Name: LESAANNE./Sex: 1955 Female Med Rec #: [id number] Physician: Cas eSverino DO Financial #: [id number] Pt. Type: O Room/Bed: N317/01 Admit/Disch: 09/19/21 08:30:31 - Institution: Case Times [...] By: Jeni Norwood RN 09/19/21 14:02 [facility] Main OR Preoperative Recordo n 09-19-2021 Main OR Preoperative Record PreOp Document Type FT Summary Primary Physician: Cas Severino DO Finalized Date/Time: 09/19/21 12:11:01 Pt. Name: ANNE KEMP./Sex: 1955 Female Med Rec #: [id number] Physician: Cas Severino DO Financial #: [id number] Pt. Type: A Room/Bed: [place] [address] Admit/Disch: 09/19/21 08:30:31 - Institution: Case Times [...] By: Gila Armas RN 09/19/21 12:11 [facility] Message from Medicareon 09-08 Message from Medicare [id number]: 127 [facility] Monitor Recordon 09-19-2021 Monitor Record [id number] :127 [facility] Patient Education - Texton 0 09-19-2021 Patient [...] Keep items that you use often in zndl-tk-hqoll places. Lower the shelves around your home [...] the way. ? Do not use floor [place] citizen or wax that makes floors slippery. If [...] Control and Prevention, STEAD[place]: https://cdc.gov ? National [place] on Aging: https://hr9aqjd.bryson.nih. gov Contact a doctor if: ? You are afraid of falling at home. ? You feel weak, drowsy, or dizzy at home. ? You fall at home. Summary ? There are many simple things that you can do to make yo (more content not included)... [facility] Progress Note-Physicianon Progress Note-Physician Patient: ANNE KEMP [...] BIDPC, # 60 tab(s), Refills(s) 0, Pharmacy: [facility] [address], 170, cm, 09/18/21 6:21:00 EDT, Height/Length Dosing, 73, kg, 09/18/21 6:21:00 EDT, Weight Dosing Colace 100 mg Cap: 100 mg = 1 cap(s), Oral, BID, PRN for constipation, # 40 cap(s), Refills(s) 0, [facility] [address], [address], cm, 09/18/21 6:21:00 EDT, Height/Length Dosing, 73, kg, 09/18/21 6:21:00 EDT, Weight Dosing oxyCODONE 5 mg Tab: 5 mg = 1 tab(s), Oral, q6hr, 1-2 po q4-6 hrs prn pain Dx: M17.12, Z96.652 Duration: 7days Disregard si po q6hr prn pain, # 40 tab(s), Refills(s) 0, Pharmacy: [facility] [address], 170, cm, 09/18/21 6:21:00 EDT, Height/Length [...] Oral, Daily, Refills(s) 0, Prophylaxis ashwaganda/dev root: ashwaganda/dve root, Oral, Daily cannabidiol: Oral, Daily, Prophylaxis [...] Oral, Daily, Refills( (more content not included)... [facility] Comment on above: Result Comment: Elec [...] UKA. Postoperative Diagnosis: same. Performed by: erick. 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 Specimens Removed: hardware, bone, soft tissue. Prosthesis: [place]. . Estimated Blood Loss: 0 ml. Complications: None. Anesthesia type: Spinal, add canal block. [facility] Comment on above: Result Comment: [...] BIDPC, # 60 tab(s), Refills(s) 0, Pharmacy: [facility] [address], 170, cm, 09/18/21 6:21:00 EDT, Height/Length Dosing, 73, kg, 09/18/21 6:21:00 EDT, Weight Dosing Colace 100 mg Cap: 100 mg = 1 cap(s), Oral, BID, PRN for constipation, # 40 cap(s), Refills(s) 0, [facility] [address], 170, cm, 09/18/21 6:21:00 EDT, Height/Length Dosing, 73, kg, 09/18/21 6:21:00 EDT, Weight Dosing oxyCODONE 5 mg Tab: 5 mg = 1 tab(s), Oral, q6hr, 1-2 po q4-6 hrs prn pain Dx: M17.12, Z96.652 Duration: 7days Disregard si po q6hr prn pain, # 40 tab(s), Refills(s) 0, [facility] [address], 170, cm, 09/18/21 6:21:00 EDT, Height/Length [...] Oral, BID, (more content not included)... Normal [facility] Comment on above: Result Comment: Elec tronically Signed By: Luis M Delgado CRNA.br\Date and Time Signed: 09/19/21 12:13 EDT UA With Cult Reflexon 2021 Bacteria LM Ql (Urine sed) TRACE Normal Trace [facility] Comment on above: Performed By: #### 1 [id number] #### [facility] Laboratory [address] [place] [address] Bilirubin Ql (U) Negative Normal Negative [facility] Comment on above: Performed By: #### 1 [id number] #### [facility] [address] [place] [address] Clarity (U) CLEAR Normal Clear [facility] Comment on above: Performed By: #### 1 [id number] #### [facility] [address] [place] [address] Color (U) STRAW Abnormal Yellow [facility] Comment on above: Performed By: #### 1 [id number] #### [facility] [address] [place] [address] Crystals LM Ql (Urine sed) Present Normal [facility] Comment on above: Performed By: #### 1 [id number] #### [facility] [address] [place] [address] Epithelial cells.squamous LM.HPF (Urine sed) [#/Area] 0-2 Normal 0-2 [facility] Comment on above: Performed By: #### 1 [id number] #### [facility] [address] [place] [address] Glucose Test strip (U) [Mass/Vol] Negative Normal Negative [facility] Comment on above: Performed By: #### 1 [id number] #### [facility] [address] [place] [address] Hemoglobin Ql (U) Negative Normal Negative [facility] Comment on above: Performed By: #### 1 [id number] #### [facility] [address] [place] [address] Ketones (U) [Mass/Vol] Negative Normal Negative [facility] Comment on above: Performed By: #### 1 [id number] #### [facility] [address] [place] [address] Hockinson.plasma/Lithi um.RBC (Bld) [Mass ratio] 0-3 Normal 0-3 [facility] Comment on above: Performed By: #### 1 [id number] #### [facility] [address] [place] [address] Nitrite Ql (U) Negative Normal Negative [facility] Comment on above: Performed By: #### 1 [id number] #### [facility] [address] [place] [address] pH (U) 6.0 [pH] Invalid Interpretation Code 5.0-9.0 [facility] Comment on above: Performed By: #### 1 [id number] #### [facility] [address] [place] [address] Protein (U) [Mass/Vol] Negative Normal Negative [facility] Comment on above: Performed By: #### 1 [id number] #### [facility] [address] [place] [address] Specific gravity (U) [Rel density] 1.015 Invalid Interpretation Code 1.005-1.030 [facility] Comment on above: Performed By: #### 1 [id number] #### [facility] [address] [place] [address] Type of Urine collection method Martin Normal [facility] Comment on above: Performed By: #### 1 [id number] #### [facility] [address] [place] [address] Urobilinogen Qn (U) 0.2 {Becca'U}/dL Normal 0.0-1.0 [facility] Comment on above: Performed By: #### 1 [id number] #### [facility] [address] [place] [address] WBC Auto Ql (U) Negative Normal Negative [facility] Comment on above: Performed By: #### 1 [id number] #### [facility] [address] [place] [id number] WBC LM.HPF (Urine sed) [#/Area] 0-5 Normal 0-5 [facility] Comment on above: Performed By: #### 1 [id number] #### [facility] [address] [place] [address] URINALYSISOrdered By: Víctor starks on 09-19-2021 Bacteria LM Ql (Urine sed) Trace /HPF Normal Trace/HPF [facility] UA Auto SS Bilirubin Ql (U) Negative (09/19/21 11:50 AM) Normal Negative [facility] UA Auto SS Clarity (U) Clear (09/19/21 11:50 AM) Normal Clear [facility] UA Auto SS Color (U) Straw *ABN* (09/19/21 11:50 AM) Invalid Interpretation Code Yellow [facility] UA Auto SS Crystals LM Ql (Urine sed) Present (09/19/21 11:50 AM) Normal [facility] UA Auto SS Epithelial cells.squamous LM.HPF (Urine sed) [#/Area] 0-2 /HPF Normal 0-2/HPF [facility] UA Auto SS Glucose Test strip (U) [Mass/Vol] Negative (09/19/21 11:50 AM) Normal Negative [facility] UA Auto SS Hemoglobin Ql (U) Negative (09/19/21 11:50 AM) Normal Negative [facility] UA Auto SS Ketones (U) [Mass/Vol] Negative (09/19/21 11:50 AM) Normal Negative [facility] UA Auto SS Hockinson.plasma/Lithi um.RBC (Bld) [Mass ratio] 0-3 /HPF Normal [...] AM) Invalid Interpretation Code 1.005 - 1.030 [facility] UA Auto SS UA Spec Desc Martin (09/19/21 11:50 AM) Normal FT UA Auto SS Urobilinogen Qn (U) 0.1623009 {Becca'U}/dL Normal 0.0 - 1.0 EU/dL [facility] UA Auto SS WBC Auto Ql (U) Negative (09/19/21 11:50 AM) Normal Negative [facility] UA Auto SS WBC LM.HPF (Urine sed) [#/Area] 0-5 /HPF Normal 0-5/HPF [facility] UA Auto SS XR Knee 1 or [...] Gunnar Claros M.D. Transcribed by: KAREN Technologist: LKS Normal [facility] Consent for Procedure/Surger yon 09-18-2021 Consent for Procedure/Surgery [id number] :127 Normal [facility] XR Chest 2 Viewson 2 XR Chest [...] V. Transcribed by: KAREN Technologist: FLORA Normal [facility] ABO/Rh Retypeon 09-15-2021 ABO/Rh Retype Interp Positive Invalid Interpretation Code [facility] Comment on above: Performed By: #### 1 [id number] ####[facility] [address] [place] [id number] BLOOD BANKOrdered By: Terri Escobar on 09-15-2021 ABO/Rh Retype Interp Positive Invalid Interpretation Code [facility] BB Subsection BUNon 09-15-2021 Urea nitrogen [Mass/Vol] 15 mg/dL Normal 5-21 [facility] Comment on above: Performed By: #### 2 594204, 0002385, 59057321, 5293623, 7348892, 7242161 #### [facility] [address] [place] [address] CBC w/Indiceson 09-15-2021 Erythrocyte distribution width (RBC) [Ratio] 13.6 % Normal 10.9-14.2 [facility] Comment on above: Performed By: #### 2 908179, 0399435, 03686130, 9771695, 1267994, 4968954 #### [facility] [address] [place] [address] Hematocrit (Bld) [Volume fraction] 34.0 % Normal 34.0-46.0 [facility] Comment on above: Performed By: #### 2 130084, 0237512, 87556152, 8529046, 7255647, 9621450 #### [facility] [address] [place] [address] Hemoglobin (Bld) [Mass/Vol] 11.9 g/dL Low 12.0-16.0 [facility] Comment on above: Performed By: #### 2 328830, 6891178, 45081747, 7377148, 0436531, 9404901 #### [facility] [address] [place] [address] MCH (RBC) [Entitic mass] 31.5 pg Normal 27.0-34.0 [facility] Comment on above: Performed By: #### 2 618002, 3059898, 69294711, 9573714, 5753037, 5056166 #### [facility] [address] [place] [address] MCHC (RBC) [Mass/Vol] 35.0 g/dL Normal 31.4-36.0 [facility] Comment on above: Performed By: #### 2 408002, 7451991, 98613113, 3306466, 7639656, 5057612 #### [facility] [address] [place] [address] MCV (RBC) [Entitic vol] 89.9 fL Normal 80.0-100.0 [facility] Comment on above: Performed By: #### 2 908546, 7428786, 59593983, 9011044, 8750635, 9506681 #### [facility] [address] [place] [address] Platelet mean volume (Bld) [Entitic vol] 6.5 fL Normal 6.4-10.8 [facility] Comment on above: Performed By: #### 2 403520, 9860469, 16545059, 2369738, 6269292, 8002458 #### [facility] [address] [place] [address] Platelets (Bld) [#/Vol] 343.0 E9/L Normal 150.0-500.0 [facility] Comment on above: Performed By: #### 2 438559, 2217821, 54345327, 9642591, 1437480, 5123350 #### [facility] [address] [place] [address] RBC (Bld) [#/Vol] 3.8 E12/L Low 4.3-5.9 [facility] Comment on above: Performed By: #### 2 428136, 5115152, 17219392, 5478759, 6866868, 4495896 #### [facility] [address] [place] [address] WBC corrected for nucl RBC Auto (Bld) [#/Vol] 4.8 E9/L Normal 4.0-11.0 [facility] Comment on above: Performed By: #### 2 116458, 6868443, 91043253, 7537099, 2056509, 7533341 #### [facility] [address] [place] [address] CHEMISTRYOrdered By: SYSTEM SYSTEM on 09-15-2021 Anion gap [Moles/Vol] 11 mmol/L Normal 6 - 16 mEq/L [facility] Remisol Chloride [Moles/Vol] 103 mmol/L Normal 101 - 1 11 mmol/L [facility] Remisol CO2 [Moles/Vol] 25 mmol/L Normal 21 - 31 mmol/L [facility] Creatinine [Mass/Vol] 0.8 mg/dL Normal 0.5 - 1.3 mg/dL [facility] Remisol GFR/1.73 sq M.predicted among blacks MDRD (S/P/Bld) [Vol rate/Area] mL/min/1.73 m2 Normal >=59mL/min/ 1.73 m2 [facility] Chem S GFR/1.73 sq M.predicted among non-blacks MDRD (S/P/Bld) [Vol rate/Area] mL/min/1.73 m2 Normal >=59mL/min/ 1.73 m2 [facility] Chem S Glucose [Mass/Vol] 84 mg/dL Normal 55 - 199 mg/dL [facility] Remisol Potassium [Moles/Vol] 4.1 mmol/L Normal 3.5 - 5.3 mmol/L [facility] Remisol Sodium [Moles/Vol] 135 mmol/L Normal 135 - 145 mmol/L [facility] Remisol Urea nitrogen [Mass/Vol] 15 mg/dL Normal 5 - 21 mg/dL [facility] Remisol Consent for Treatmenton Consent for Treatment [id number]: 127 Normal [facility] Creatinineon 09-15-2021 Creatinine [Mass/Vol] 0.8 mg/dL Normal 0.5-1.3 [facility] Comment on above: Performed By: #### 2 170000, 0263661, 93676603, 1382818, 9139027, 0454160 ####[facility] [address] [place] [address] Glucoseon 09-15-2021 Glucose [Mass/Vol] 84 mg/dL Normal 55-199 [facility] Comment on above: Performed By: #### 2 802510, 2748523, 81416364, 8247128, 0107956, 7565474 #### [facility] [address] [place] [address] HEMATOLOGYOrdered By: Terri Escobar on 09-15-2021 Erythrocyte distribution width (RBC) [Ratio] 13.6 % Normal 10.9 - 14.2 % [facility] HemeAutoSS Hematocrit (Bld) [Volume fraction] 34.0 % Normal 34.0 - 46.0 % [facility] HemeAutoSS Hemoglobin (Bld) [Mass/Vol] 11.9 g/dL Low 12.0 - 16.0 gm/dL [facility] HemeAutoSS MCH (RBC) [Entitic mass] 31.5 pg Normal 27.0 - 34.0 pg [facility] HemeAutoSS MCHC (RBC) [Mass/Vol] 35.0 g/dL Normal 31.4 - 36.0 gm/dL [facility] HemeAutoSS MCV (RBC) [Entitic vol] 89.9 fL Normal 80.0 - 100.0 fL [facility] HemeAutoSS Platelet mean volume (Bld) [Entitic vol] 6.5 fL Normal 6.4 - 10.8 fL [facility] HemeAutoSS Platelets (Bld) [#/Vol] 343.0 E9/L Normal 150.0 - 500.0 E9/L [facility] HemeAutoSS RBC (Bld) [#/Vol] 3.8 E12/L Low 4.3 - 5.9 E12/L [facility] HemeAutoSS WBC corrected for nucl RBC Auto (Bld) [#/Vol] 4.8 E9/L Normal 4.0 - 11.0 E9/L [facility] HemeAutoSS Lyteson 09-15-2021 Anion gap [Moles/Vol] 11 mmol/L Normal 6-16 [facility] Comment on above: Performed By: #### 2 943256, 0211713, 61363273, 3766472, 8415143, 5659521 ####[facility] [address] [place] [address] Chloride [Moles/Vol] 103 mmol/L Normal 101-111 [facility] Comment on above: Performed By: #### 2 913785, 3938688, 00501930, 0123214, 6231965, 1484741 ####[facility] [address] [place] [address] CO2 [Moles/Vol] 25 mmol/L Normal 21-31 [facility] Comment on above: Performed By: #### 2 321352, 0733664, 99088546, 0278352, 4623866, 5030908 ####[facility] [address] [place] [address] Potassium [Moles/Vol] 4.1 mmol/L Normal 3.5-5.3 [facility] Comment on above: Performed By: #### 2 094092, 4093610, 14718569, 0974798, 4573015, 2218917 ####[facility] [address] [place] [address] Sodium [Moles/Vol] 135 mmol/L Normal 135-145 [facility] Comment on above: Performed By: #### 2 097260, 2599880, 94070609, 7386459, 2564798, 3358552 ####[facility] [address] [place] [address] UA With Cult Reflexon 2021 Bacteria LM Ql (Urine sed) TRACE Normal Trace [facility] Comment on above: Performed By: #### 1 8143258 ####[facility] [address] [place] [address] Bilirubin Ql (U) Negative Normal Negative [facility] Comment on above: Performed By: #### 1 5767986 ####[facility] [address] [place] [address] Clarity (U) CLEAR Normal Clear [facility] Comment on above: Performed By: #### 1 6089697 ####[facility] [address] [place] [address] Color (U) YELLOW Normal Yellow [facility] Comment on above: Performed By: #### 1 8468173 ####[facility] [address] [place] [address] Crystals LM Ql (Urine sed) Present Normal [facility] Comment on above: Performed By: #### 1 2197057 ####[facility] [address] [place] [address] Epithelial cells.squamous LM.HPF (Urine sed) [#/Area] 0-2 Normal 0-2 [facility] Comment on above: Performed By: #### 1 4973417 ####[facility] [address] [place] [address] Glucose Test strip (U) [Mass/Vol] Negative Normal Negative [facility] Comment on above: Performed By: #### 1 1377195 ####[facility] [address] [place] [address] Hemoglobin Ql (U) Negative Normal Negative [facility] Comment on above: Performed By: #### 1 0407771 ####[address] [address] Ketones (U) [Mass/Vol] Negative Normal Negative [facility] Comment on above: Performed By: #### 1 4511681 ####[address] [address] Hockinson.plasma/Lithi um.RBC (Bld) [Mass ratio] 0-3 Normal 0-3 [facility] Comment on above: Performed By: #### 1 4947184 ####[address] [address] Nitrite Ql (U) Negative Normal Negative [facility] Comment on above: Performed By: #### 1 3931044 ####[address] [address] pH (U) 6.5 [pH] Invalid Interpretation Code 5.0-9.0 [facility] Comment on above: Performed By: #### 1 3604808 ####[address] [address] Protein (U) [Mass/Vol] Negative Normal Negative [facility] Comment on above: Performed By: #### 1 6199716 ####[address] [address] Specific gravity (U) [Rel density] <=1.005 Invalid Interpretation Code 1.005-1.030 [facility] Comment on above: Performed By: #### 1 4556135 ####[address] [address] Type of Urine collection method Clean Catch Normal [facility] Comment on above: Performed By: #### 1 1167898 ####[address] [address] Urobilinogen Qn (U) 0.2 {Becca'U}/dL Normal 0.0-1.0 [facility] Comment on above: Performed By: #### 1 3598748 ####[address] [place] [address] WBC Auto Ql (U) Negative Normal Negative [facility] Comment on above: Performed By: #### 1 4656024 ####[facility] [address] [place] [address] WBC LM.HPF (Urine sed) [#/Area] 0-5 Normal 0-5 [facility] Comment on above: Performed By: #### 1 1499423 ####[facility] [address] [place] [address] URINALYSISOrdered By: Colton Minor on 09-15-2021 Bacteria LM Ql (Urine sed) Trace /HPF Normal Trace/HPF [facility] UA Auto SS Bilirubin Ql (U) Negative (09/15/21 5:32 PM) Normal Negative [facility] UA Auto SS Clarity (U) Clear (09/15/21 [...] PM) Normal Negative [facility] UA Auto SS Hockinson.plasma/Lithi um.RBC (Bld) [Mass ratio] 0-3 /HPF Normal [...] PM) Invalid Interpretation Code 1.005 - 1.030 [facility] UA Auto SS UA Spec Desc Clean Catch (09/15/21 5:32 PM) Normal [facility] UA Auto SS Urobilinogen Qn (U) 0.4451323 {Becca'U}/dL Normal 0.0 - 1.0 EU/dL [facility] UA Auto SS WBC Auto Ql (U) Negative (09/15/21 5:32 PM) Normal Negative [facility] UA Auto SS WBC LM.HPF (Urine sed) [#/Area] 0-5 /HPF Normal 0-5/HPF [facility] UA Auto SS eGFRon 09-15-2021 GFR/1.73 sq M.predicted among blacks MDRD (S/P/Bld) [Vol rate/Area] mL/min/{1.73_m2} Normal >=59 [facility] Comment on above: Order Comment: Order added by Discern Expert. Result Comment: eGFR is race adjusted. AA=. Performed By: #### 2 701353, 7051207, 43085041, 1896434, 1579417, 5824791 #### [facility] [address] [place] [address] GFR/1.73 sq M.predicted among non-blacks MDRD (S/P/Bld) [Vol rate/Area] mL/min/{1.73_m2} Normal >=59 [facility] Comment on above: Order Comment: Order added by Discern Expert. Result Comment: Tourist Information Officer josesito kidney disease could be indicated at eGFR's of less than 60 mL/min/1.73m2. Kidney failure is indicated at less than 15 mL/min/1.73m2. Performed By: #### 2 317867, 4520609, 68710273, 2138680, 0407481, 7888105 #### [facility] [address] [place] [address] COVID-19 ([facility])on 09-13-2021 SARS-CoV-2 (COVID-19) RNA RANGEL+probe Ql (Resp) Not detected Normal Not Detected [facility] Comment on above: Result Comment: This test result should be correlated with clinical presentations and medical history by a healthcare provider to determine its clinical significance. This assay was performed by a reverse transcriptase real-time polymerase chain reaction (rt PCR) method on the [employer] system. This test has been authorized only [...] or revoked sooner. Performed By: #### 2 [id number] #### [facility] [address] [place] [id number] SARS-CoV-2 (COVID-19) RNA RANGEL+probe Ql (Unsp spec) Pass Normal Pass [facility] Comment on above: Performed By: #### 2 [id number] #### [facility] [address] [place] [id number] Specimen source Nom (Unsp spec) Nasal Normal [facility] Comment on above: Performed By: #### 2 [id number] #### [facility] [address] [place] [address] Coding Summary.on 09-13-2021 Coding Summary. CD:[id number]:[id number] Gh0b Ww+PGhlYWQ+EN5LIAPoN44ku CWmqH1DP4pYXM4DZJPYPJXKK I5UHC2itZD6JRlwX3FirhOj TqiauCZmKL84AFl9NDL4iAhl IGneiA8egXElQ0k4QmFtTN88 uS76DNfsCZYkLpQ6XsTfoqry bWFy H5otAlLaoNNpBhk+PHRhYmxl IHdpZHRoPScxMDAlJyBzdHls NQ7cZu7xJSKyBVLczBmdcZGd OiBj t0cnFTZbWElkOR3tiOmyO9Rp vRY3UCYni6u8Vo21pXZ+PHRk XCI8kDbiRJyen171IgJmo7my IDM3 yCSaYGhkUKC5W50pa9M1VNRj ORPnIDD6yPP1rE5jeHojfaqr L7IvjVMcBuU3DSM6mKMqsZ7j bGln rrbgiE5sTtm+X95PGT0XJEOA DC3RZts5H3VzJjxmxOA+PC90 BLIgDV13yCKimRXme6nngRt6 JzEw MHSrLZW5aYrjPSabf7BcSHQp R13gyBCme9I9JGVyzIibqZGj KfYzkFZ2eX5jJNqqchqcd0cd dzsn Wqgnn8snxl07mY43O77bVBbw ONKwTXO6PJXrKQFunBklqh1c qV9oHe0+LSvcf9xqv6cbwEt7 IjIw OKXgbkVhuOypMLX4o8TiFy14 Y4FfwEegi7FoYlm6sp11sOUq q2M9kRL9IKqvESPoiR6tKWjj ZnQ6 JJYfCpOerC44nWVtPCtgNw7i gDhnnSdlJQ9vTBPcrnodMTHx oH0aIOSgeXMtaOzbYE5oJGXd bjtm y937AuSwYND5QXDdmSAoT7Kd mB8yNcScINDcNVUlF7ZwwIRl QXvpB219KRjfAoZ7KMValvOh Y2Fs XIOvsHvgLwN7v5Z0Cn8Hp5Fu kxhuZRY5CPlxJOI9UzG9QpNi DzY8T1KpPpb8LEAmuJykPV8z J3Bh INSlrqwdzroobWB5PSImCJVh uY00xUApOKacWz8pr5I2y206 ZUWgBGIcwC19Vg5ptRwtWKOv dCBU cQ0jmeozu3jvoqvcDtXzVFSi FBp4BOo2IXIueJbsNwVuHGC9 EdR8BRC5tTZjsX9gcVnqargi dG9w Oyc+U82taB6nMFT6WRB9bxrh WOUovqLsEH42LQ11I4CkGstb dGFibGU+YTMtyuPvxOjsOX9a YmFj j9jmq9JuJLjrQ3JpHXDaFZrc Cka6LXQhVIM0cCR9cX1mHQYu NNtpw5U5oEP4M4XvwjEigz1r b2xs HUMeIGfmL12qsVIgy0B8HCQb mIM7ZWZugQujHbTdkM48Env+ YKCouAvrt6LtHwsko9aai9az dGg9 LqUeQGBfegFfvFhgWGD1j6Hi Lx43Z95wUEeiQMNyFMCiCWMy OIRjuSgjvr7kxL8mZs3+PGNv bCB3 wRW6vD3xYNEfBqR0GSkkW171 VhSkoYEuSozgk2mwy9ujdIh2 IkYjWFCajuWlnTkuAID1c4To Lz48 N47pORcoBFHyEWNvYGIjZMJt dFexjc7jaT9bLs8+SJ5ha4mb pw73qW65jNC+KYJvLKK6sBpx PSdw KLVjnB9hEXctWhS5FEOvNwBn oH30pANlYPxsRi6bjSfmzJzl FQ1eLYJcdlgjm181CcRtm7ow IDEw sPHdEZffLLE5Y92ym2V9EKGy CWAiIAX6eWE9nC1eeJuaqckc bGVmdDsgdmVydGljYWwtYWxp Z246 IHRvcDsnPlBhdGllbnQgTmFt RMn2T0IwPcc1YDFbkKxdVA5q zJDdXWkyMh1msRzsdMcbIE1v NTBp vpwsm210CpOhz2dwSGXjzCYa SQuqDVJ6A07os7T3JKDfARGb OSZ2qAW5eS7axUboucvrdQTx dDsg vpKtcBahMQxdLFblV262DPPy tJvtXyUkhlYnOFXefNN4LQ86 HZ96nLUmu7R9mJM4W2NgWSGt bmct nlhysKS5XVSiOMAoyY50Mo3q oDbhLr1pOLNjHYW1DNLxcOVz O3QqaM8iLuZbYGMsXVEcB7Sk eHQt UYarU866VPzoHxT1HFGcfzRm D9UcDTLxyMbmMzD2x4G4Rg5T D0S6FU69WF29vHOwu5E9jGA5 J3Bh GEZlqfmetvtliYQ7WMWvXEUe qW34Jj2fxXftDw6vOQJsAEM8 VLIbkKLhG5ZhrD1dIzEvJRRt MDAw R4SkvQClUTasV576WSleMjY0 XBVuijZwJ2JrMOQujGtkDmN7 y4R4Kz1ADJk8TY52ZP01fDMr c3R5 dGZ5I5SsKHVqvhycdgluzRE6 PZLzOPTuoM05Ft0tpDosMi1d YPMxKIN4QDGhkISdK6BtvC8h OiAj OQThNTOvB2YeuNEpJIglQ004 ARizYyF9ATPhhvTsI6HuSOBw bArwPiW3g3A2Zf1ULYNuRG17 IFR5 qMW8NM13WJ96W6OsWhzdrCVu bGU+PHRhYmxlIHdpZHRoPScx ZZCrQdEygYigKX7qAu4pOWYf LWNv qDwhlZMfWaIaa2knVQYlOByp JK2ddHlkM3QerEW7IPYmc4b5 Vj24T77dO0WexXE+PGNvbCB3 aWR0 lG3oGpNyXcE2JSnhF244ToBx pBLzJeglu7dch7rbiQi0ZcK5 ZVBiymTrvMheJEL0m6GqMj13 Y29s IHdpZHRoPSIxNSUiIHZhbGln hs7waO4fTa7+JBVkuRJ6eYX5 cN6fQeUzHxB4EXxgV076LbFu cCIv Pavdb0ljs3eefBs1ZaDnJEZk vpMbvEueUVI1z7FcTn72D6Wu hYbog8ObNjs3rz16sPIla1K9 bGU9 J3QoAJCqrkwytZPhbHqeMX0f EYJzjielBPRdoD0lRKSgR7b9 RzUhReB3ABniH6ZlbcN6VJQk cHQg QSwxJXC4J71as4V8TUXuYRTc RAX8pDS7fS8fuYrpqwramEJx jUxxtyNhzLjzQHfmWHetZ597 IHRv rIvdJEGcdQ4mJKFjpEGyeDep WP0eXUXqpisrZz7XCUoGFHid Kq5QVLsvlLG+KCYpQPT4wFud PSdw WFGhzA6kJPZjM1c4NwZwEqA2 FRjeZ5YzZKEyyfbhVp33eW2g DfJwZjY6JBojL0HdfgJ2NCBh cHQg FBpiGLY5J98yv0L4XFBuIFPi RXB9qTM9eM4cfCksxjtzoLXm eLrouaOehMycFMueLBibI937 IHRv dHmhToHuWlK5IwY4MMR4Z6So Ckc4OQVhmZxeUS1cnQMcTIdm Mr3mqZlllOpoNP6iJQTnsyds YWRk pJ9aSUNjqGBqhRysHY6gVJKe vaxet375BnRrZKT4EIPunQXq Q4KzaV6sIgGvZMOyJGTqL9Rl eHQt IPwcQ610NLpyWzF8FLKizhLi C5CoZVUmvTjbFtB8k9I1Kf61 NiBZZWFyczwvdGQ+PHRkIHN0 eWxl KZmyZSHmsP0xZCRzW5y3RzXd UcO1DTjxO1PpNDBkxppnJf74 gY4xYhYxUsX7KTwkJ9NyzyD7 IDEw lQNjXWjxSXF1G90rk7Z2EOBq NSEnBBC2yJW2bP7vxFgiaisb bGVmdDsgdmVydGljYWwtYWxp Z246 IHRvcDsnPkZlbWFsZTwvdGQ+ YAYqDVO8hVroPLrvGHSajK6z FAJkB2j3RgSsMyD4NSygW9Tb ZGRp qugtOj98kX7uHmRwSfB1HRtp A4YntbI5DLBiiPYjOIotQHV4 D55eh0K8HSLkQLZmAKX9vWC3 dC1h bGlnbjogbGVmdDsgdmVydGlj VArgRDhwE295TJTftQkqImUs S8ShusdxZppgtPV+KL57ln97 L3Rh XdocZdf8ULTqENX9wTY9dE0b ZZZlAHdbu0Q0zJJ9H8WeybLm yl1rh8ulIOPrWMaqZ56nlSFb c2U7 YJLjuRA1XKVkjHiwKbQvnX20 Oyc+OVWslGoff7ErJyzuh9hg y9vvzEz2JtNkUQMaszGyzYih PSJ0 d3BrMp90S04vXEtkODOyBYMq ABLeFMLayRuexm2rpQ7oPx3+ XPZtiOT4nHW8mF6fTtFhBqF1 YWxp W736JvYgoLQmPakcn9skz7wy cCy0TcDjGTEbpfQhxGppUQZ2 o4ZkUq36D5AgiSrrf8GeNoz1 cj48 jCVlv5T0aBD6D1JlLEQcngoe sAPhuGnvFN8uJSFbtsrnZVYe wY8oRHFfS1n6BxVsJoC3DWnq O2Zv biC4FWHusVEpWCJdyNVOiU0o oiygy2bipsxySbXsJVJzOGz7 AIq5JGPiuEfnZuZmJPX6ScF1 ZXJ0 xBGxwM9lyArhcalpyO6jTcg+ FAn8l5plbRNwDX6iyRM7BD81 RW14wRTfc1B7yPM6D4ElTNVx bmct qqxddGH2CWAeYLFruR51Ia6c rHmfXv9fDBLoTOQ3AJBihRPd G8WwfN3pTnOvZVUcIEXeL6Tc eHQt XZkmV057EGhlGkU1WIRhbqKo T3AeVFOlkYvmPvN4d1Q8Tn1L KF24QW33CW15iOKsr8Z0dHQ8 J3Bh OZMweinxmbwrjCK6CACeLELm eG94Hl1xvOspRk9xHCIiZJX5 DHRwjSHzN8UguP6bNbEmIVOz MDAw T4OvvNUzUYidF818FXaiGoJ6 JMCeuoAdG2TaLZHckKtoWlW8 c3G1Ej2CNh26TC05KB88eNOy c3R5 iRY1G0PwUDTdrtqurlnrgYY2 MZQrAIQwzA08Nv4sqEuiKz0o ZSGkFUN9BQGciEYvG7VfnA8z OiAj SGUqAGFoL4XmgSFoAEbnI252 CYejYvR6APHigcBqZ7LtOBJy hLruAiK0o6M7Za9BOCpofal2 L3Rk PjwvdHI+KD58WGVcUM72uTLf wDZkh9yvxJv0FkNtJSCaJKV0 zTzuMIfrw4HjBHZsI24roYEk c2U6 IGNv (more content not included)... [facility] Consent for Treatmenton Consent for Treatment [id number]: 127 [facility] COVID-19 ([facility])on 09-11-2021 ADMITTED TO INTENSIVE CARE UNIT FOR CONDITION OF INTEREST:FIND:PT: NO Normal [facility] Comment on above: Performed By: #### 2 [id number] #### [facility] Laboratory [address] [place] [address] EMPLOYED IN A HEALTHCARE SETTING:FIND:PT: Unknown Normal [facility] Comment on above: Performed By: #### 2 [id number] #### [facility] [address] [place] [address] FIRST TEST FOR CONDITION OF INTEREST:FIND:PT: Unknown Normal [facility] Comment on above: Performed By: #### 2 [id number] #### [facility] [address] [place] [address] HAS SYMPTOMS RELATED TO CONDITION OF INTEREST:FIND:PT: Unknown Normal [facility] Comment on above: Performed By: #### 2 [id number] #### [facility] [address] [place] [address] HOSPITALIZED FOR CONDITION OF INTEREST:FIND:PT: NO Normal [facility] Comment on above: Performed By: #### 2 [id number] #### [facility] [address] [place] [address] STATUS:FIND:PT: NO Normal [facility] Comment on above: Performed By: #### 2 [id number] #### [facility] [address] [place] [address] RESIDES IN A CONGREGATE CARE SETTING:FIND:PT: Unknown Normal [facility] Comment on above: Performed By: #### 2 [id number] #### [facility] [address] [place] [address] Physician Orderon 09-05-2021 Physician Order [id number] :127 Normal [facility] Physician Orderon 09-04-2021 Physician Order [id number]#1.00CD: 127 Normal [facility] COVID Quick Testingon 2020 Result Negative [facility] Other Mononucleosis Test, Qual[place] 1 07-02-2020 Heterophile Ab LA Ql (S) Negative [facility] Other XR chest 2V*on 05-02-2021 XR chest 2V* [address] [address] XRay Report Signed Patient: Anne Kemp MR#: [id number] 1 : 1955 Acct:[id number] Age/Sex: 66 / F ADM Date: 05/02/21 Loc: [id number] Room: Type: [facility] Attending Dr: Wilmer Patino PA-C Ordering [...] Granado Jr., M.D.05/02/2021 3:45 PM Dictation Location: [place] [address] Transcribed By: [facility] 05/02/21 1542 Dictated By: Arden Granado Jr, MD 05/02/21 1536 Signed By: 05/02/21 1549 [facility] XR chest 2V* [facility] [employer] Other XR chest 2V* [facility] Other XR chest 2V* [address] [place] [address] [facility] Other XR chest 2V* [place] [address] [employer] Other XR chest 2V* XRay Report [facility] Other XR chest 2V* Signed [facility] Other XR chest 2V* Patient: Anne Kemp MR#: [id number] [facility] Other XR chest 2V* 1 [facility] Other XR chest 2V* : 1955 Acct:[id number] [facility] Other XR chest 2V* Age/Sex: 66 / F ADM Date: 05/02/21 [facility] Other XR chest 2V* Loc: [id number] Room: pe: [facility] Other XR chest 2V* Attending Dr: Wilmer Patino PA-C [facility] Other XR chest 2V* Ordering Provider: Wilmer Patino [facility] Other XR chest 2V* Date of Service: 05/02/21 [facility] Other XR chest 2V* XR/XR chest 2V*: Cough [facility] Other XR chest 2V* Copies to: Wilmer Patino [facility] Other XR chest 2V* Chest 05/02/2021. [facility] Other XR chest 2V* CLINICAL DATA: Cough. [facility] [employer] Other XR chest 2V* FINDINGS: 2 views of the chest were obtained and are compared with a prior study 10/12/2014. [facility] Other XR chest 2V* The cardiac silhouet te is normal in size. The pulmonary vasculature is within normal limits. The [facility] Other XR chest 2V* lungs demonstrate chronic-appearing interstitial changes. No pulmonary consolidation or collapse is [facility] Other XR chest 2V* identified. No pneumothorax or pleural effusion is seen. The thoracic spine demonstrates [facility] Other XR chest 2V* degenerative changes . Old rib fractures are noted on the left. [facility] Other XR chest 2V* X R/XR chest 2V* [facility] Other XR chest 2V* IMPRESSION: Chronic-appearing interstitial changes. No acute cardiopulmonary disease. [facility] Other XR chest 2V* Impression dictated by: Arden Granado Jr., M.D.05/02/2021 3:45 PM [facility] Other XR chest 2V* Dictation Location: [place] [address] [facility] Other XR chest 2V* Transcribed By: LUCILLE 05/02/21 1545 [facility] Other XR chest 2V* Dictated By: Arden Granado Jr, MD 05/02/21 1538 [facility] Other XR chest 2V* Signed By: [facility] Other XR chest 2V* 05/02/21 1545 [employer] [facility] Other C-Reactive Proteinon 021 C-Reactive Protein 0.7 mg/dL Normal 0.0-1.0 [facility] Comment on above: Performed By: #### P TH, CBC, CMP, [id number], ESR, CRP, URIC #### [facility] [address] [place] [address] Complete Blood Count Auto Di ffon 11-17-2020 Basophils (Bld) [#/Vol] 0.0 10*3/uL Normal 0.0-0.2 [facility] Comment on above: Performed By: #### P TH, CBC, CMP, [id number], ESR, CRP, URIC #### [address] Basophils/100 WBC (Bld) 0.6 % Normal . [facility] Comment on above: Performed By: #### P TH, CBC, CMP, [id number], ESR, CRP, URIC #### [address] Eosinophils (Bld) [#/Vol] 0.2 10*3/uL Normal 0.0-0.45 [facility] Comment on above: Performed By: #### P TH, CBC, CMP, [id number], ESR, CRP, URIC #### [address] Eosinophils/100 WBC (Bld) 2.8 % Normal . [facility] Comment on above: Performed By: #### P TH, CBC, CMP, [id number], ESR, CRP, URIC #### [address] Erythrocyte distribution width (RBC) [Ratio] 13.5 % Normal 11.9-15.3 [facility] Comment on above: Performed By: #### P TH, CBC, CMP, [id number], ESR, CRP, URIC #### [address] Hematocrit (Bld) [Volume fraction] 36.4 % Normal 34.0-46.4 [facility] Comment on above: Performed By: #### P TH, CBC, CMP, [id number], ESR, CRP, URIC #### [address] Hemoglobin (Bld) [Mass/Vol] 12.5 g/dL Normal 11.8-15.4 [facility] Comment on above: Performed By: #### P TH, CBC, CMP, [id number], ESR, CRP, URIC #### [address] [address] [place] Lymphocytes (Bld) [#/Vol] 1.9 10*3/uL Normal 1.00-4.8 [facility] Comment on above: Performed By: #### P TH, CBC, CMP, [id number], ESR, CRP, URIC #### [address] Lymphocytes/100 WBC (Bld) 33.4 % Normal . [facility] Comment on above: Performed By: #### P TH, CBC, CMP, [id number], ESR, CRP, URIC #### [address] MCH (RBC) [Entitic mass] 31.6 pg Normal 24.7-34.3 [facility] Comment on above: Performed By: #### P TH, CBC, CMP, [id number], ESR, CRP, URIC #### [address] MCV (RBC) [Entitic vol] 92.0 fL Normal 80-100 [facility] Comment on above: Performed By: #### P TH, CBC, CMP, [id number], ESR, CRP, URIC #### [address] Mean Corpuscular HGB Conc 34.3 g/dL Normal 32.0-35.0 [facility] Comment on above: Performed By: #### P TH, CBC, CMP, [id number], ESR, CRP, URIC #### [address] Monocytes (Bld) [#/Vol] 0.5 10*3/uL Normal 0.0-0.8 [facility] Comment on above: Performed By: #### P TH, CBC, CMP, [id number], ESR, CRP, URIC #### [address] Monocytes/100 WBC (Bld) 9.2 % Normal . [facility] Comment on above: Performed By: #### P TH, CBC, CMP, [id number], ESR, CRP, URIC #### [facility] [address] Neutrophils (Bld) [#/Vol] 3.1 10*3/uL Normal 1.8-7.7 [facility] Comment on above: Performed By: #### P TH, CBC, CMP, [id number], ESR, CRP, URIC #### [facility] [address] Neutrophils/100 WBC (Bld) 54.0 % Normal . [facility] Comment on above: Performed By: #### P TH, CBC, CMP, [id number], ESR, CRP, URIC #### [facility] [address] Nucleated RBC/100 WBC (Bld) [Ratio] 0.1 % Normal 0-0.5 [facility] Comment on above: Performed By: #### P TH, CBC, CMP, [id number], ESR, CRP, URIC #### [address] Platelet mean volume (Bld) [Entitic vol] 7.0 fL Normal 6.3-10.7 [facility] Comment on above: Performed By: #### P TH, CBC, CMP, [id number], ESR, CRP, URIC #### [address] Platelets (Bld) [#/Vol] 336 10*3/uL Normal 150-450 [facility] Comment on above: Performed By: #### P TH, CBC, CMP, [id number], ESR, CRP, URIC #### [address] RBC (Bld) [#/Vol] 3.95 10*6/uL Normal 3.60-5.00 [facility] Comment on above: Performed By: #### P TH, CBC, CMP, [id number], ESR, CRP, URIC #### [address] WBC (Bld) [#/Vol] 5.7 10*3/uL Normal 4.5-11.0 [facility] Comment on above: Performed By: #### P TH, CBC, CMP, [id number], ESR, CRP, URIC #### [facility] [address] [place] [address] Comprehensive Metabolic Pane mariela 11-17-2020 Albumin [Mass/Vol] 4.1 g/dL Normal 3.2-5.5 [facility] Comment on above: Performed By: #### P TH, CBC, CMP, [id number], ESR, CRP, URIC #### [facility] [address] [place] [address] Albumin/Globulin [Mass ratio] 1.4 {ratio} Normal [facility] Comment on above: Performed By: #### P TH, CBC, CMP, [id number], ESR, CRP, URIC #### [address] ALP [Catalytic activity/Vol] 105 U/L High 32-92 [facility] Comment on above: Performed By: #### P TH, CBC, CMP, [id number], ESR, CRP, URIC #### [address] ALT [Catalytic activity/Vol] 19 U/L Normal 10-60 [facility] Comment on above: Performed By: #### P TH, CBC, CMP, [id number], ESR, CRP, URIC #### [facility] [address] [place] [address] AST [Catalytic activity/Vol] 25 U/L Normal 10-42 [facility] Comment on above: Performed By: #### P TH, CBC, CMP, [id number], ESR, CRP, URIC #### [facility] [address] [place] [address] Bilirubin [Mass/Vol] 0.5 mg/dL Normal 0.3-1.2 [facility] Comment on above: Performed By: #### P TH, CBC, CMP, [id number], ESR, CRP, URIC #### [address] Calcium [Mass/Vol] 9.8 mg/dL Normal 8.2-10.2 [facility] Comment on above: Performed By: #### P TH, CBC, CMP, [id number], ESR, CRP, URIC #### [facility] [address] Chloride [Moles/Vol] 101 mmol/L Normal 95-114 [facility] Comment on above: Performed By: #### P TH, CBC, CMP, [id number], ESR, CRP, URIC #### [facility] [address] CO2 [Moles/Vol] 27.1 mmol/L Normal 22.0-30.0 [facility] Comment on above: Performed By: #### P TH, CBC, CMP, [id number], ESR, CRP, URIC #### [address] Creatinine [Mass/Vol] 0.61 mg/dL Normal 0.44-1.03 [facility] Comment on above: Performed By: #### P TH, CBC, CMP, [id number], ESR, CRP, URIC #### [address] Estimated GFR ( [place] > 60 [facility] Comment on above: Result Comment: GFR estimated reference range: According to KDOQI guidelines, <60 ml/min/1.73m2 is sufficient to diagnose a patient with chronic kidney disease. Performed By: #### P TH, CBC, CMP, [id number], ESR, CRP, URIC #### [facility] [address] Estimated GFR (Non- Am > 60 Normal [facility] Comment on above: Performed By: #### P TH, CBC, CMP, [id number], ESR, CRP, URIC #### [address] Globulin (S) [Mass/Vol] 3.0 g/dL Normal [facility] Comment on above: Performed By: #### P TH, CBC, CMP, [id number], ESR, CRP, URIC #### [facility] [address] Glucose [Mass/Vol] 86 mg/dL Normal 70-100 [facility] Comment on above: Result Comment: [facility] Glucose Reference Range is dependent on time and content of last meal. Glucose of more than 200 mg/dL in a nonstressed, ambulatory subject supports the diagnosis of Diabetes Mellitus. ADA recommended reference range Performed By: #### P TH, CBC, CMP, YEST12IA, ESR, CRP, URIC #### [address] Potassium [Moles/Vol] 4.9 mmol/L Normal 3.5-5.1 [facility] Comment on above: Performed By: #### P TH, CBC, CMP, [id number], ESR, CRP, URIC #### [address] Protein [Mass/Vol] 7.1 g/dL Normal 6.1-7.9 [facility] Comment on above: Performed By: #### P TH, CBC, CMP, [id number], ESR, CRP, URIC #### [address] Sodium [Moles/Vol] 137 mmol/L Normal 136-146 [facility] Comment on above: Performed By: #### P TH, CBC, CMP, [id number], ESR, CRP, URIC #### [address] Urea nitrogen [Mass/Vol] 11 mg/dL Normal 9-23 [facility] Comment on above: Performed By: #### P TH, CBC, CMP, [id number], ESR, CRP, URIC #### [address] Erythrocyte Sedimentation Ra issa 11-17-2020 ESR (Bld) [Velocity] 17 mm/h Normal 0-29 [facility] Comment on above: Result Comment: PERF ORMED BY: [place] [address] PATHOLOGIST [employer] WORKER MAAME REVELES M.D. Performed By: #### P TH, CBC, CMP, [id number], ESR, CRP, URIC #### [address] [address] [facility] Parathyroid Hormone Intacton 11-17-2020 Parathyroid Hormone Intact 44.4 pg/mL Normal 12-88 [facility] Comment on above: Result Comment: PERF ORMED BY: [place] [id number] PATHOLOGIST [employer] WORKER MAAME REVELES M.D. Performed By: #### P TH, CBC, CMP, [id number], ESR, CRP, URIC #### [address] [address] [facility] Uric Acidon 11-17-2020 Urate [Mass/Vol] 3.2 mg/dL Normal 2.6-7.2 [facility] Comment on above: Performed By: #### P TH, CBC, CMP, [id number], ESR, CRP, URIC #### [place] [id number] [facility] Vitamin D 25 Hydroxy Totalon 11-17-2020 Vitamin D 25 Hydroxy Total 43.7 ng/mL Normal 30-100 [facility] Comment on above: Result Comment: ANNEL MIN D STATUS 25(OH)VITAMIN D RANGE (ng/mL) Deficient <20 Insufficient 20 to <30 Sufficient 30 to 100 Reference: Agapito MF,Amina NC, Cesario KATHLEEN, et al. Evaluation,treatment, and prevention of vitamin D deficiency; an Endocrine Society clinical practice guideline. JCEM. 2010; 96(7):1911-30. Performed By: #### P TH, CBC, CMP, SUYA61EO, ESR, CRP, URIC #### [address] [address] [facility] MR head/brain wo conon 10-14 MR head/brain wo con [facility] [address] [address] MRI Report Signed Patient: Anne Kemp MR#: [id number] 1 : 1955 Acct:[id number] Age/Sex: 65 / F ADM Date: 10/14/20 Loc: [facility] Room: Type: [facility] Attending Dr: Emily Velázquez DO Ordering [...] Granado Jr., M.D.10/14/2020 3:53 PM Dictation Location: [place] [address] Transcribed By: [facility] 10/14/20 1553 Dictated By: Arden Granado Jr, MD 10/14/20 1547 Signed By: 10/14/20 1553 [facility] ANKLE LEFT 3 [facility] 0 ANKLE LEFT 3 [facility] Department of Radiology [address] [place] [phone] == Patient Name: ANNE KEMP : 1955 Sex: F Age: Race: White Pt. Location: 84 Patient Status: D Ordered Date: 06/23/2019 3:00:00 PM Completed Date: 06/23/2019 03:11 PM Requesting Provider: DANA JI Attending Provider: DANA JI Report Copy To: Signs & Symptoms: M25.562 Pain in left knee I10 History: [place] Comments: , , , Ordering Provider - [...] AP,Lateral and Tangential views were obtained. (accession [id number]), AP,Lateral and Oblique views were obtained. (accession [id number]) COMPARISON: None FINDINGS: Soft tissues: No acute [...] ankle Electronically signed: Zeus Zee. Transcribed by: [email or web address], User Resident: Electronically Signed by: ZEUS ZEE @ 06/24/2019 01:55 PM [place] [facility] Comment on above: Order Comment: , , = ========= , Ordering Provider - DANA JI MD , KNEE LEFT 3 VWSon 06-23-2019 KNEE LEFT 3 VWS [facility] Department of Radiology [address] [place] [phone] == Patient Name: ANNE KEMP : 1955 Sex: F Age: Race: White Pt. Location: Patient Status: D Ordered Date: 06/23/2019 3:00:00 PM Completed Date: 06/23/2019 03:11 PM Requesting Provider: DANA JI Attending Provider: DANA JI Report Copy To: Signs & Symptoms: M25.562 Pain in left knee I10 History: [place] Comments: , , , Ordering Provider - [...] AP,Lateral and Tangential views were obtained. (accession [id number]), AP,Lateral and Oblique views were obtained. (accession [id number]) COMPARISON: None FINDINGS: Soft tissues: No acute [...] ankle Electronically signed: Zeus Zee. Transcribed by: [email or web address], User Resident: Electronically Signed by: ZEUS ZEE @ 06/24/2019 01:55 PM Normal [facility] Comment on above: Order Comment: , , = ========= , Ordering Provider - DANA JI MD , OVSPon 04-11-2018 CNOVSP Visit (SP) Office ([place]) Robin KEMP ([id number]) 1955 [facility] Time Provider Dfutiufddn19/2/18 10:00 AM VICTORIA BURR During your visit today, we recorded the following information about you: Temperature Pulse Respiration Blood pressure 98.2 degrees 81/minute 18/minute 154/97 Weight Height 69.9 kg 1.727 Jhonny Burr MD 04/11/2018 12:32 PM SignedFlor Kemp is a 63 year old female [...] R06.00, R06.89(primary diagnosis)Albuterol trial. Will follow up [facility].2. Pulmonary nodule - ICD9: 793.11, ICD10: R91.1See [address] Provider: YESSY GREENE [[id number]]Allergies As of Date: 04/11/2018 Noted Allergy ReactionCODEINE [...] by VICTORIA BURR MD on 04/11/18 Normal [facility] PROGRESSon 04-11-2018 Protein mass conc HNO ID: [id number]: Victoria Emilee Cordon: (none)Author Type: PhysicianType: Progress NotesFiled: 04/11/2018 [...] R06.00,R06.89 (primary diagnosis)Albuterol trial. Will follow up [facility].2. Pulmonary nodule - ICD9: 793.11, ICD10: R91.1See Brianna Burr MD Normal [facility] CNOVSPon 04-03-2018 CNOVSP Visit (SP) Office ([place]) Robin KEMP ([id number]) 1955 FDate Time Provider Iaqohmezvh05/25/18 8:30 AM VICTORIA BURR During your visit today, we recorded the following information about you: Temperature Pulse Respiration Blood pressure 99.4 degrees 81/minute 16/minute 129/76 Weight Height 69.3 kg 1.727 Jhonny Burr MD 04/03/2018 10:55 AM Christina Kemp is a 63 year old female who presents in consultation today 2017. Her history [place] out west in [place] where she tripped over a treeroot in [facility] and had blunt trauma to [place] abdomen from [place].She lacerated her hepatic artery. She was taken [...] playing [place]. [place] We will check PFTs and I'll see her in an one week.- OXIMETRY AT REST2. Dyspnea and respiratory abnormalities - ICD9: 786.09, ICD10: R06.00, R06.89See above- OXIMETRY AT RESTVictoria Burr, MDReferring Provider: YESSY GREENE [[id number]]Allergies As of Date: 04/03/2018 Noted Allergy ReactionCODEINE 04/21/2007PENICILLINS 04/21/2007Date Reviewed: 04/03/2018Reviewed by: Daisha Sanchez - Fully AssessedReason for Visit: abnormal ct scan of the chest [Other] Cmt: new patient consultationPrimary Visit Diagnosis:Pulmonary nodule [R91.1] Other Visit Diagnosis:Dyspnea and respiratory abnormalities [R06.00, R06.89]Order(s):OXIMETRY AT REST [[id number]] Order #: [id number] FUTUREDisposition: Return in about 1 week (around [...] by VICTORIA BURR MD on 04/03/18 Normal [facility] PROGRESSon 04-03-2018 Protein mass conc HNO ID: [id number]: Victoria BurrService: (none)Author Type: PhysicianType: Progress NotesFiled: 04/03/2018 10:55 AMNote Text:Flor Kemp is a 63 year old female who presents in consultation todayApril 03, 2018. [place] she[place] over [place] root in [facility] and [place] blunt [place] She lacerated her hepatic artery. She was [...] playing a role.She will be going to [place] in a few weeks. We will check PFTs and I'llsee her in an one week.- OXIMETRY AT REST2. Dyspnea and respiratory abnormalities - ICD9: 786.09, ICD10: R06.00,R06.89See above- OXIMETRY AT RESTVictoria Burr MD Normal [facility] Vital Signs Date Time Vital Sign Value Performing Clinician Facility 12-17-2024 11:40-0400 Body mass index (BMI) [Ratio] 25.31 kg/m2 Yaritza Mueller FENCE MAKING MACHINE OPERATOR Work Phone: [facility] 12-17-2024 11:40-0400 Body temperature 98.49 [degF] Yaritza Mueller FENCE MAKING MACHINE OPERATOR Work Phone: [facility] 12-17-2024 11:40-0400 Body weight 74.39 kg Yaritza Ervin FENCE MAKING MACHINE OPERATOR Work Phone: [facility] 12-17-2024 11:40-0400 Diastolic blood pressure 82 mm[Hg] Yaritza Ervin FENCE MAKING MACHINE OPERATOR Work Phone: [facility] 12-17-2024 11:40-0400 Heart rate 63 /min Yaritza Ervin FENCE MAKING MACHINE OPERATOR Work Phone: [facility] 12-17-2024 11:40-0400 Respiratory rate 18 /min Yaritza Ervin FENCE MAKING MACHINE OPERATOR Work Phone: [facility] 12-17-2024 11:40-0400 SaO2% (BldA) [Mass fraction] 97 % Yaritza Mueller FENCE MAKING MACHINE OPERATOR Work Phone: [facility] 12-17-2024 11:40-0400 Systolic blood pressure 126 mm[Hg] Yaritza Mueller FENCE MAKING MACHINE OPERATOR Work Phone: [facility] 09-21-2021 09:59-0400 Diastolic blood pressure 87 mm[Hg] Cas Pocos [facility] 09-21-2021 09:59-0400 Heart rate 94 /min Cas Pocos [facility] 09-21-2021 09:59-0400 Systolic blood pressure 146 mm[Hg] Cas Pocos [facility] 09-21-2021 09:00-0400 Promise to Return Cas Pocos [facility] 09-21-2021 08:45-0400 Hourly Rounding Cas Pocos [facility] 09-21-2021 08:43-0400 Diastolic blood pressure 95 mm[Hg] Cas Pocos [facility] 09-21-2021 08:43-0400 Heart rate 102 /min Cas Pocos [facility] 09-21-2021 08:43-0400 Systolic blood pressure 154 mm[Hg] Cas Pocos [facility] 09-21-2021 08:00-0400 Body temperature 98.24 [degF] Cas Pocos [facility] 09-21-2021 08:00-0400 SaO2% (BldA) [Mass fraction] 98 % Cas Pocos [facility] 09-21-2021 02:20-0400 Blood Pressure Location Cas Pocos [facility] 09-21-2021 02:20-0400 BP/Pulse Patient Position Cas Pocos [facility] 09-21-2021 02:20-0400 Diastolic blood pressure 97 mm[Hg] Cas Pocos [facility] 09-21-2021 02:20-0400 Mean blood pressure 118 mm[Hg] Cas Pocos [facility] 09-21-2021 02:20-0400 Systolic blood pressure 160 mm[Hg] Cas Pocos [facility] 09-21-2021 01:02-0400 Blood Pressure Location Cas Pocos [facility] 09-21-2021 01:02-0400 BP/Pulse Patient Position Cas Pocos [facility] 09-21-2021 01:02-0400 Mean blood pressure 126 mm[Hg] Cas Pocos [facility] 09-21-2021 00:00-0400 Blood Pressure Location Cas Pocos [facility] 09-21-2021 00:00-0400 Body temperature 98.06 [degF] Cas Cobbos [facility] 09-21-2021 00:00-0400 BP/Pulse Patient Position Cas Pocos [facility] 09-21-2021 00:00-0400 Heart rate 93 /min Cas Cobbos [facility] 09-21-2021 00:00-0400 Mean blood pressure 127 mm[Hg] Cas Cobbos [facility] 09-21-2021 00:00-0400 SaO2% (BldA) [Mass fraction] 97 % Cas Pocos [facility] 09-20-2021 20:24-0400 Heart rate 98 /min Cas Pocos [facility] 09-20-2021 19:38-0400 Body temperature 98.24 [degF] Cas Pocos [facility] 09-20-2021 19:38-0400 Heart rate 98 /min Cas Pocos [facility] 09-20-2021 19:38-0400 Mean blood pressure 122 mm[Hg] Cas Pocos [facility] 09-20-2021 19:38-0400 SaO2% (BldA) [Mass fraction] 95 % Cas Pocos [facility] 09-20-2021 19:00-0400 Respiratory rate 16 /min Cas Pocos [facility] 09-20-2021 17:30-0400 Heart rate 99 /min Cas Pocos [facility] 09-20-2021 17:30-0400 Mean blood pressure 88 mm[Hg] Cas Pocos [facility] 09-20-2021 17:30-0400 Respiratory rate 18 /min Cas Pocos [facility] 09-20-2021 08:22-0400 Mean blood pressure 98 mm[Hg] Cas Pocos [facility] 09-19-2021 13:45-0400 Body temperature 97.16 [degF] Cas Pocos [facility] 09-19-2021 13:45-0400 Respiratory rate 17 /min Cas Pocos [facility] 09-19-2021 13:35-0400 Respiratory rate 18 /min Cas Pocos [facility] 09-19-2021 13:30-0400 Respiratory rate 12 /min Cas Pocos [facility] 09-19-2021 13:19-0400 Body temperature 97.16 [degF] Cas Pocos [facility] 09-15-2021 16:51-0400 Body temperature 97.7 [degF] Cas Pocos [facility] 09-15-2021 16:51-0400 Diastolic blood pressure 88 mm[Hg] Cas Pocos [facility] 09-15-2021 16:51-0400 Heart rate 66 /min Cas Pocos [facility] 09-15-2021 16:51-0400 Mean blood pressure 108 mm[Hg] Cas Pocos [facility] 09-15-2021 16:51-0400 Respiratory rate 16 /min Cas Pocos [facility] 09-15-2021 16:51-0400 SaO2% (BldA) [Mass fraction] 98 % Cas Pocos [facility] 09-15-2021 16:51-0400 Systolic blood pressure 146 mm[Hg] Cas Pocos [facility] 09-15-2021 16:51-0400 Blood Pressure Location Cas Pocos [facility] 09-15-2021 16:50-0400 Blood Pressure Location Cas Pocos [facility] 09-15-2021 16:50-0400 Diastolic blood pressure 82 mm[Hg] Cas Pocos [facility] 09-15-2021 16:50-0400 Heart rate 69 /min Cas Pocos [facility] 09-15-2021 16:50-0400 Mean blood pressure 104 mm[Hg] Cas Pocos [facility] 09-15-2021 16:50-0400 Respiratory rate 16 /min Cas Pocos [facility] 09-15-2021 16:50-0400 Systolic blood pressure 147 mm[Hg] Cas Pocos [facility] 05-02-2021 15:20-0500 Body height 172.72 cm Wilmer Patino Other [facility] Other 05-02-2021 15:20-0500 Body mass index (BMI) [Ratio] 24.33 kg/m2 Wilmer Patino Other [facility] Other 05-02-2021 15:20-0500 Body temperature 98.6 [degF] Wilmer Patino Other [facility] Other 05-02-2021 15:20-0500 Body weight 72.58 kg Wilmer Patino Other [facility] Other 05-02-2021 15:20-0500 Respiratory rate 16 /min Wilmer Patino Other [facility] Other 05-02-2021 15:20-0500 SaO2% (BldA) [Mass fraction] 95 % Wilmer Patino Other [facility] Other Encounters Encounter Date Encounter Type Care Provider Facility Start: 12-23-2024 End: 12-23-2024 Clinisync Result Encounter Yaritza Mueller FENCE MAKING MACHINE OPERATOR Work Phone: [facility] Unsolicited Start: 12-23-2024 End: 12-23-2024 Clinisync Result Encounter Yaritza Mueller FENCE MAKING MACHINE OPERATOR Work Phone: [facility] Unsolicited Start: 12-17-2024 End: 12-17-2024 Orders Only Yaritza Mueller FENCE MAKING MACHINE OPERATOR Work Phone: [facility] Comment on above: Primary hypertension (Primary Dx); Chest pain in adult; Mixed hyperlipidemia Start: 12-17-2024 End: 12-17-2024 Office outpatient visit 25 minutes Yaritza Mueller FENCE MAKING MACHINE OPERATOR Work Phone: [facility] Comment on above: Chest pain in adult (Primary Dx); Primary hypertension ; Mixed hyperlipidemia ; Bipolar affective disorder, current episode mixed, current episode severity unspecified (HCC) Start: 12-14-2024 End: 12-17-2024 Telephone encounter Yaritza Mueller FENCE MAKING MACHINE OPERATOR Work Phone: [facility] Start: 06-27-2023 Patient encounter procedure Yaritza Mueller FENCE MAKING MACHINE OPERATOR Work Phone: [facility] Start: 11-07-2022 ambulatory BROADCAST METEOROLOGIST YARITZA MUELLER Facil ity:[facility] Start: 10-25-2022 End: 10-26-2022 ambulatory BROADCAST METEOROLOGIST YARITZA ERVIN Facility:[facility] Start: 07-19-2022 End: 07-20-2022 ambulatory BROADCAST METEOROLOGIST YARITZA ERVIN Facility:[facility] Start: 07-11-2022 End: 07-12-2022 ambulatory BROADCAST METEOROLOGIST YARITZA MUELLER Facility:[facility] Start: 09-19-2021 End: 09-21-2021 ambulatory DO Cas Severino Facility:[facility] [place] Start: 09-19-2021 End: 09-21-2021 Observation Cas Severino [facility] Start: 09-15-2021 End: 09-16-2021 ambulatory DO Cas Severino Facility:[facility] [place] Start: 09-15-2021 End: 09-15-2021 Patient encounter procedure Cas Severino [facility] Start: 09-12-2021 End: 12-12-2021 ambulatory DO Cas Severino Facility:[facility] [place] Start: 09-04-2021 End: 12-11-2021 Preprocedural examination done Cas Severino [facility] Start: 09-04-2021 End: 12-11-2021 Recurring Cas Severino [facility] Start: 05-02-2021 End: 05-02-2021 ambulatory Callthais Patino Other [facility] Other Start: 05-02-2021 Office outpatient vi sit 15 minutes Wilmer Patino [facility] Start: 04-11-2018 End: 04-14-2018 Patient encounter procedure VICTORIA Hebert ANUSHAKRYSTIN [facility] Start: 04-03-2018 End: 04-04-2018 [facility] Procedures Date Procedure Procedure Detail Performing Clinician Start: 12-23-2024 CA ECHO DOPPLER COMPLETE Yaritza Castrojessy FENCE MAKING MACHINE OPERATOR Work Phone: Start: 12-04-2023 Mammography Yaritza Roro elizondo FENCE MAKING MACHINE OPERATOR Work Phone: Start: 09-19-2021 Total knee replacement Cas Pocos Arthroplasty of knee Cas P ocos Cholecystectomy Cas Pocos Plan of Treatment Date Care Activity Detail Author Start: 07-04-2026 Screening for malign ant neoplasm of colon [facility] Start: 08-06-2025 Medicare Annual Well ness (AWV) Medicare Annual Wellness (AWV) [facility] Start: 12-17-2024 End: 12-17-2026 Echocardiogram 2D complete Echocardiogram 2D complete Echocardiography Routine Primary hypertension Chest pain in adult Expected: 12/17/2024 (Approximate), Expires: 12/17/2026 [facility] Comment on above: Expected: 12/17/2024 (Approximate), Expires: 12/17/2026 Start: 12-17-2024 End: 12-17-2026 NM Heart Perfusion W single state of exercise Stress test with myocardial perfusion Cardiac Nuclear Medicine Routine Primary hypertension Chest pain in adult Mixed hyperlipidemia Expected: 12/17/2024 (Approximate), Expires: 12/17/2026 [facility] Work Phone: Comment on above: Expected: 12/17/2024 (Approximate), Expires: 12/17/2026 Start: 12-03-2024 Screening for malign ant neoplasm of breast Mammogram [facility] Start: 06-27-2024 Medicare Annual Well ness (AWV) Medicare Annual Wellness (AWV) [facility] Start: 1974 Pneumococcal Vaccine : 65+ Years (1 of 2 - PCV) Pneumococcal Vaccine: 65+ Years (1 of 2 - PCV) [facility] Start: 1955 Screening for malign ant neoplasm of colon [facility] Immunizations Immunization Date Immunization Notes Care Provider Gina parikh 03-11-2014 tetanus toxoid, reduced diphtheria toxoid, and acellular pertussis vaccine, adsorbed Wilmer Patino Other [facility] Other Payers Date Payer Category Payer Self-pay 2021 Private Health Insurance [facility] [id number] 2020 Medicare MEDICARE [id number] 1959 Medicare [id number] 1959 Unknown [id number] 1955 Unknown [id number] 1955 Unknown [id number] 1955 Unknown [id number] 1955 Unknown [id number] 1955 Unknown [id number] 1955 Unknown [id number] 1955 Unknown [id number] 593 1955 Unknown [id number] 1955 Unknown [id number] Social History Date Type Detail Facility Tobacco smoking status Unknown if ever sm oked [facility] Other Start: 12-17-2024 Sex Assigned At Female N [facility] Other Tobacco smoking status No Smokin g Status Entered [facility] Start: 06-27-2023 Tobacco smoking stat [facility] Ex-smoker [facility] End: 06-10-1989 History of tobacco use Current smoker [facility] End: 06-10-1989 History of tobacco use Cigarette Smoker [facility] Start: 06-27-2023 Tobacco use and exposure Smokeless tobacco non-user [facility] Start: 06-27-2023 End: 12-17-2024 Alcoholic beverage intake Lifetime non-drinker (finding) [facility] Start: 12-17-2024 History of Social function [facility] Start: 06-27-2023 Alcohol Comment coffee: 2 cups daily [facility] Start: 1955 Sex assigned at Not on file [facility] Medical Equipment Procedure Code Equipment Code Equipment Origin al Text Equipment Identifier Dates FDA Start: 09-19-2021 FDA Start: 09-19-2021 FDA Start: 09-19-2021 FDA Start: 09-19-2021 FDA Start: 09-19-2021 FDA Start: 09-19-2021 FDA Start: 09-19-2021 KNEE TOTAL ARTHROPLASTY REVISION Pocos DO, Cas Joe 09/19/21 Unknown Knee L FDA Start: 09-19-2021 KNEE TOTAL ARTHROPLASTY REVISION Pocos DO, Lavell 09/19/21 Unknown Knee L FDA Start: 09-19-2021 KNEE TOTAL ARTHROPLASTY REVISION Pocos DO, Lavell 09/19/21 Unknown Knee L FDA Start: 09-19-2021 KNEE TOTAL ARTHROPLASTY REVISION Pocos DO, Lavell 09/19/21 Unknown Knee L FDA Start: 09-19-2021 KNEE TOTAL ARTHROPLASTY REVISION Pocos DO, Cas Joe 09/19/21 Unknown Knee L FDA Start: 09-19-2021 KNEE TOTAL ARTHROPLASTY REVISION Pocos DO, Cas Joe 09/19/21 Unknown Knee L FDA Start: 09-19-2021 KNEE TOTAL ARTHROPLASTY REVISION Pocos DO, Cas Joe 09/19/21 Unknown Knee L FDA Start: 09-19-2021 Clinical Notes 05-02-2021 to 12-17-2024 Telephone Encounter - Yaritza Mueller NP - 12/17/2024 4:13 PM EDTTelephone Encounter - Yaritza Mueller NP - 12/17/2024 4:13 PM Anant Mueller NP - 12/17/2024 12:59 PM EDTPatient Instructions Note Date & Type Note Facility 12-17-2024 Telephone encounter Note Please contact pt, I did speak with Er doctor about her case I am going to order a stress test and ECHO (US of her heart). I will fax order over to [facility] for this and they should call her. Also make sure she continues to check blood pressure at home and verify: she is taking losartan 50mg and metoprolol 1.5 tablets twice a day I think is what she said. If she is doing that keep checking blood pressure over the next few days, and call us on Saturday12/22/24 with update on blood pressures, I would also like to see her in office in about 2 weeks [place] [facility] 12-17-2024 Miscellaneous Notes Please contact pt, I did speak with Er doctor about her case I am going to order a stress test and ECHO (US of her heart). I will fax order over to [facility] for this and they should call her. Also make sure she continues to check blood pressure at home and verify: she is taking losartan 50mg and metoprolol 1.5 tablets twice a day I think is what she said. If she is doing that keep checking blood pressure over the next few days, and call us on Saturday12/22/24 with update on blood pressures, I would also like to see her in office in about 2 weeks [place] documented in this encounter [facility] 12-17-2024 History of Presen t illness Narrative Associated Problem(s): Chest pain in adult Risk factors; post menopause, HTN, HLD, family hx CAD Will have pt seen in ER for evaluation DD: CAD, related to BP, anxiety? Verbalized understanding and will go be seen Associated Problem(s): Bipolar disorder (HCC) Compliant on meds Associated Problem(s): Mixed hyperlipidemia On zetia Cannot tolerate statins Check labs yearly and prn dose changes Associated Problem(s): Primary hypertension Please check blood pressure daily and record DASH diet Limit caffeine Take medication as directed Contact office if chest pain, pressure, dizziness, shortness of breath, swelling legs Recommend slow position changes Meds: losartan, b esau Called the first time thinking it was eye infection- possible allergies Pt thought she had possibly a uti due to feeling weird , forgetfulness, twinges in the bladder and feverish Pt states she feels that she has that under controlled Pt kept appt today due to high BP. She was hospitalized last year in [place] due to possible stroke, it was not a stroke however she had vascular changes in her brain, high BP and high cholesterol of 300+ She is on medications: Metoprolol 50mg 1 [...] has doubled her medication this morning- 10am Images from the original note were not included. Anne Kemp is a 69 y.o. female presents with chief complaint of UTI HPI: Called the first time thinking it was eye infection- possible allergies Pt thought she had possibly a uti due to feeling weird , forgetfulness, twinges in the bladder and feverish Pt states she feels that she has that under controlled Pt kept appt today due to high BP. She was hospitalized last year in [place] due to possible stroke, it was not a stroke however she had vascular changes in her brain, high BP and high cholesterol of 300+ She is on medications: Metoprolol 50mg 1 [...] has doubled her medication this morning- 10am Chest Pain This is a new problem. The current episode started in the past 7 days. The onset quality is gradual. The problem occurs intermittently. The problem has been waxing and waning. The pain is present in the substernal region. The quality of the pain is described as tightness. The pain does not radiate. Associated symptoms include shortness of breath. Pertinent negatives include no abdominal pain, back pain, cough, diaphoresis, dizziness, fever, headaches, lower extremity edema, nausea, near-syncope, numbness, palpitations, vomiting or weakness. She has tried nothing for the symptoms. Risk factors include post-menopausal. Her past medical history is significant for hyperlipidemia and hypertension. Pertinent negatives for past medical history include no seizures. Her family medical history is significant for CAD, hyperlipidemia, hypertension, early AR and sudden . SUBJECTIVE: MEDICATIONS: Current Outpatient Medications Medication Instructions ezetimibe (ZETIA) 10 mg, Daily folic acid (FOLVITE) 1 mg, Daily hydroxychloroquine (PLAQUENIL) 200 mg, Daily LaMICtal 200 mg, Every 12 hours losartan (COZAAR) 25 mg, Daily Methotrexate, PF, 10 MG/0.4ML solution auto-injector Inject under the skin metoprolol tartrate (LOPRESSOR) 50 mg, Oral, 2 times daily SEROquel 100 mg, Nightly venlafaxine XR (EFFEXOR XR) 150 mg, Every morning ALLERGIES: Allergies Allergen Reactions Codeine Penicillins REVIEW OF SYMPTOMS: Review of Systems Constitutional: Negative for appetite change, chills, diaphoresis and fever. HENT: Negative for congestion, ear pain and sore throat. Eyes: Negative for pain, discharge, redness and visual disturbance. Respiratory: Positive for shortness of breath. Negative for cough and wheezing. Cardiovascular: Positive for chest pain. Negative for palpitations, leg swelling and near-syncope. Gastrointestinal: Negative for abdominal pain, blood in stool, constipation, diarrhea, nausea and vomiting. Genitourinary: Negative for difficulty urinating, dysuria and frequency. Musculoskeletal: Negative for arthralgias, back pain, joint swelling and myalgias. Skin: Negative for rash and wound. Neurological: Negative for dizziness, tremors, seizures, syncope, weakness, numbness and headaches. Psychiatric/Behavioral: Negative for behavioral problems, self-injury and suicidal ideas. The patient is not nervous/anxious. Hematological: Does not bruise/bleed easily. Endocrine: Negative for polydipsia, polyphagia and polyuria. Allergic/Immunologic: Negative for environmental allergies and food allergies. PAST MEDICAL HISTORY Past Medical History: Diagnosis Date Primary hypertension 06/09/2023 History reviewed. No pertinent surgical history. family history is not on file. OBJECTIVE: Visit Vitals BP 126/82 (BP Location: Left arm, Patient Position: Sitting, BP Cuff Size: Adult long) Pulse 63 Temp 98.5 F (Temporal) Resp 18 Wt 164 lb SpO2 97% BMI 25.31 kg/m Smoking Status Former BSA 1.88 m Physical Exam Vitals and nursing note reviewed. Constitutional: General: She is not in acute distress. Appearance: Normal appearance. She is not ill-appearing. HENT: Head: Normocephalic and atraumatic. Right Ear: Tympanic membrane, ear canal and external ear normal. Left Ear: Tympanic membrane, ear canal and external ear normal. Nose: Nose normal. No congestion or rhinorrhea. Mouth/Throat: Mouth: Mucous membranes are moist. Pharynx: No oropharyngeal exudate or posterior oropharyngeal erythema. Eyes: Extraocular Movements: Extraocular movements intact. Conjunctiva/sclera: Conjunctivae normal. Neck: Vascular: No carotid bruit. Cardiovascular: Rate and Rhythm: Normal rate and regular rhythm. Pulses: Normal pulses. Heart sounds: Normal heart sounds. Pulmonary: Effort: Pulmonary effort is normal. Breath sounds: Normal breath sounds. No wheezing or rhonchi. Abdominal: General: Bowel sounds are normal. There is no distension. Palpations: Abdomen is soft. There is no mass. Tenderness: There is no abdominal tenderness. Musculoskeletal: General: Normal range of motion. Cervical back: Normal range of motion and neck supple. Right lower leg: No edema. Left lower leg: No edema. Skin: General: Skin is warm and dry. Capillary Refill: Capillary refill takes 2 to 3 seconds. Findings: No rash. Neurological: General: No focal deficit present. Mental Status: She is alert and oriented to person, place, and time. Psychiatric: Mood and Affect: Mood normal. Behavior: Behavior normal. Thought Content: Thought content normal. Judgment: Judgment normal. ASSESSMENT AND PLAN: No follow-ups on file. Problem List Items Addressed This Visit Primary hypertension - Primary Please check blood pressure daily and record DASH diet Limit caffeine Take medication as directed Contact office if chest pain, pressure, dizziness, shortness of breath, swelling legs Recommend slow position changes Meds: losartan, b esau Mixed hyperlipidemia On zetia Cannot tolerate statins Check labs yearly and prn dose changes Bipolar disorder (HCC) Compliant on meds Chest pain in adult Risk factors; post menopause, HTN, HLD, family hx CAD Will have pt seen in ER for evaluation DD: CAD, related to BP, anxiety? Verbalized understanding and will go be seen documented in this encounter [facility] 12-17-2024 Instructions Yaritza Mueller NP - 12/17/2024 11:30 AM EDT Tightness to chest, dyspnea, strong family hx CAD She has HLD intolerant to statins alled the first time thinking it was eye infection- possible allergies Pt thought she had possibly a uti due to feeling weird , forgetfulness, twinges in the bladder and feverish Pt states she feels that she has that under controlled Pt kept appt today due to high BP. She was hospitalized last year in [place] due to possible stroke, it was not a stroke however she had vascular changes in her brain, high BP and high cholesterol of 300+ She is on medications: Metoprolol 50mg 1 [...] this morning- 10am documented in this encounter [facility] 12-14-2024 Telephone encounter Note Anne has scheduled an appointment with you on December 17, at 3:40 pm for a possible UTI. She wants to know if you would like her to have any testing done prior to her appointment. [phone]. [facility] 12-14-2024 Miscellaneous Notes Anne has scheduled an appointment with you on December 17, at 3:40 pm for a possible UTI. She wants to know if you would like her to have any testing done prior to her appointment. [phone]. documented in this encounter [facility] 09-26-2021 Note DATE OF ADMISSION: 0 09/19/2021 [...] see the chart. Franki Lee Dictated: 09/26/2021 [id number] Transcribed: 09/26/2021 [facility] Comment on above: Result Comment: Elec tronically Signed By: Cas Severino DO\Eliubr\Date and Time Signed: 09/26/21 15:34 EDT 09-22-2021 [...] the physical therapy. Franki Lee Dictated: 09/21/2021 [id number] Transcribed: 09/21/2021 [facility] Comment on above: Result Comment: Deedee tronically Signed By: Cas Severino DO\.br\Date and [...] made to ensure accuracy, however, inadvertently computerized ic design manager mistakes may be present. Extracted from: Title:Consult [...] Note Author:Luis M Delgado CRNA Date:09/19/21 Plan [place] [employer] (ASA) physical status classification: Class II. Anesthetic Preoperative Plan Anesthesia: Regional (Spinal, adductor canal left). Anesthetic plan, risks, benefits, and alternatives discussed with the patient and/or family. Patient verbalized understanding. [facility]04-14-2022 NoteDAILY PROGRESS NOTE: 09/20/2021 HISTORY: Anne [...] have anybody athome and is really questioning half-way. We did explain the indication for half-way and the downside risk of half-way in the setting of revision knee arthroplasty. She does inquire about aides to help her otherwise. We will have discharge planning discuss further. Franki Lee Dictated: 09/20/2021 [id number] Transcribed: 09/20/2021[facility] CenterComment on above:Result Comment: Electronically Signed By: Cas Severino DO\.br\Date and Time Signed: 09/21/21 06:46 [id number] NoteReason for Consultation Medical management. History of [...] Oral, BID, PRN, Pre-arriva (more content not included)...[facility] CenterComment [facility] above:Result Comment: Electronically Signed By: Jewels DOMINGUEZ\.br\Date and Time Signed: 09/20/21 16:56 EDT\.br\Electronically Co-Signed By: Brijesh BARRETT MD\.br\Date and Time Co-Signed: 09/20/2216:58 [id number] Hospital Discharge instructions Patient Education 09/19/2021 19:46:32 Fall Prevention in the Home, Adult, Wcuo-[id number]-Bcmo Fall Prevention in the Home, Adult Falls [...] Keep items that you use often in ojmn-qh-puhvw places. Lower the shelves around your home [...] of the way. Do not use floor v[place] citizen or wax that makes floors slippery. If [...] more information Centers for Disease Control and Prevention, RAKAN: https://cdc.gov National [place] on Aging: https://kp7ooaj.bryson.nih.gov Contact a doctor if: You are afraid [...] 03/23/2010 Document Revised: 09/17/2019 Document Reviewed: 01/09/2018 [employer] Patient Education 2020 [employer]. 09/12/2021 07:12:58 [place] - Total Knee Arthroplasty. Revised 08/01/11. (Custom) [place], [place] [facility] DISCHARGE INSTRUCTIONS TOTAL KNEE [...] will continue at home, possible with the special event assistant of Home Health Physical Therapy or [...] weeks postop. Cas Severino, DO [facility] [address] [place] [address] [phone] Reviewed: 09-15 Revised 06/21 Follow Up Care 09/04/2021 15:44:18 With:Cas Severino Address: [address] [place] [address] Business (1) When:10/18/2021 15:00:00 With:YARITZA MUELLER Address: [address] [place] [phone] Business (1) When: Unknown [facility]04-12-2022 NotePT Evaluation completed with an AMPAC score of 16/24. Pt was able to perform bed mobility with Mod I and transfers with Min A. Pt was able to ambulate 10 feet with FWW and Min A. Will follow daily with recommendations to follow on POD # 1[address] [facility]04-11-2022 [id number]:127Jonah [facility]11-23-2021 Evaluation note* Encounter Date Diagnosis Assessment Notes [...] diseases (ICD-10 - Z20.828) Covid test negative. Ray test performed per pt request, and that was also negative. See above tx plan. Apr, Other Additional time spent conducting pre-visit phone call, screening for symptoms, instructions on social distancing, application and removal of PPE, and cleaning of examination room, equipment and supplies was preformed. Patient education given for testing methodology and results. Patient care instructions given in writting by [facility] Care At Home document. [employer] Other Evaluation + Plan note Future Appointments Appointment Date:09/19/2021 11:30:00 AM Scheduled Provider: Location:[facility] Diagnosis Encounter for annual wellness visit (AWV) in Medicare patient- Primary Screening for colon cancer Special screening for malignant neoplasms, colon Encounter for screening mammogram for malignant neoplasm of breast BMI 25.0-25.9,adult Primary hypertension Unspecified essential hypertension Anemia due to other cause, not classified Hyponatremia Hyposmolality and/or hyponatremia Bipolar disorder, current episode mixed, mild (HCC) Hypothyroidism (acquired) Unspecified hypothyroidism Routine general medical examination at health care facility Routine general medical examination at a health care facility Chest pain in adult- Primary Primary hypertension Unspecified essential hypertension Mixed hyperlipidemia Mixed hyperlipidemia Bipolar affective disorder, current episode mixed, current episode severity unspecified (HCC) documented in this encounter [facility] Diagnosis Encounter for annual wellness visit (AWV) in Medicare patient- Primary Screening for colon cancer Special screening for malignant neoplasms, colon Encounter for screening mammogram for malignant neoplasm of breast BMI 25.0-25.9,adult Primary hypertension Unspecified essential hypertension Anemia due to other cause, not classified Hyponatremia Hyposmolality and/or hyponatremia Bipolar disorder, current episode mixed, mild (HCC) Hypothyroidism (acquired) Unspecified hypothyroidism Routine general medical examination at health care facility Routine general medical examination at a health care facility Chest pain in adult- Primary Primary hypertension Unspecified essential hypertension Mixed hyperlipidemia Mixed hyperlipidemia Bipolar affective disorder, current episode mixed, current episode severity unspecified (HCC) Primary hypertension- Primary Unspecified essential hypertension Chest pain in adult Mixed hyperlipidemia Mixed hyperlipidemia documented in this encounter [facility] Narrative - Reported* Type Description Date Medical History Hypertension Medical History Hypothyroid Medical History Bipolar 1 disorder Medical History RA Medical History Arthritis Surgical History partial knee replacement Surgical History Uvulopalatopharyngoplasty Surgical History cholecystectomy Surgical History tonsillectomy and adenoidectomy Surgical History knee replacement Hospitalization History pyelonephritis 2009 [employer] Other Hospital course Narrative No data available for this section [facility] No data available for this section [facility] No data available for this section [facility] Summary Purpose Family History No Family [...] section and content) DATE CREATED AUTHOR 05/18/2018 [facility] DATE CREATED AUTHOR AUTHOR'S ORGANIZ ATION 12/31/2019 [facility] DATE CREATED AUTHOR AUTHOR'S ORGANIZ ATION 07/12/2021 [facility] DATE CREATED AUTHOR AUTHOR'S ORGANIZ ATION 03/10/2022 Jnoah Salgado [facility] DATE CREATED AUTHOR AUTHOR'S ORGANIZ ATION 11/16/2022 [facility] DATE CREATED AUTHOR AUTHOR'S ORGANIZ ATION 12/21/2024 [facility] EPIC REASON FOR VISIT (unrecogniz ed section and content) Reason Comments UTI Care Team (unrecognized sect ion and content) 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 Start Date End Date Dashawn Cummins MD [address] [place] [phone] PCP - General Family Medicine 06/27/23 Yaritza Mueller NP [address] [place] [phone] Referring Physician Nurse Practitioner 12/26/22 Yaritza Mueller NP [address] [place] [phone] Nurse Practitioner Family Medicine 06/27/23 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 Start Date End Date Dashawn Cummins MD [address] [place] [phone] PCP - General Family Medicine 06/27/23 Yaritza Mueller NP [address] [place] [address] Referring Physician Nurse Practitioner 12/26/22 Yaritza Mueller NP [address] [place] [phone] Nurse Practitioner Family Medicine 06/27/23 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 Start Date End Date Dashawn Cummins MD [address] [place] [phone] PCP - General Family Medicine 06/27/23 Yaritza Mueller NP [address] [place] [phone] Referring Physician Nurse Practitioner 12/26/22 Yaritza Mueller NP [address] [place] [phone] Nurse Practitioner Family Medicine 06/27/23 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 Start Date End Date Dashawn Cummins MD [address] [place] [phone] PCP - General Family Medicine 06/27/23 Yaritza Mueller NP [address] [place] [phone] Referring Physician Nurse Practitioner 12/26/22 Yaritza Mueller NP [address] [place] [phone] Nurse Practitioner Family Medicine 06/27/23 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 [facility] provides no warranty or guarantee of the accuracy or completeness of information in this document.
--- NOTE | 2024-12-25 09:41 | PC.NURSE ---
Nursing Note Cardiac Stress Test Reviewed: Medication, allergies and patient history reviewed. Stress Test: [x ] Patient tolerated stress test well. [ ] Patient unable to tolerate walking on treadmill. Switched to Lexiscan stress test. [x ] No chest pain noted per patient [ ] Chest pain that resolved prior to leaving stress lab. [ ] No dyspnea noted. [x ] Dyspnea that resolved prior to leaving stress lab. [x ] Patient left stress lab asymptomatic and hemodynamically stable. [ ] Patient taken to the Emergency Room due to non-resolving symptoms following stress test. [x ] Patient achieved target heart rate. [ ] Patient unable to achieve target heart rate. [ ] Aminophylline administered as reversal agent to Lexiscan (Regadenoson). [ ] Nitro administered. Nursing Comments:Pt had Cardiolite stress test done. Pt tolerated well and had no symptoms other then SOB. Pt ambulated to cafeteria for breakfast prior to second set of images.
--- NOTE | 2024-12-28 09:13 | P.STRESS_ITS ---
Stress Test Stress Test Allergies Allergy/AdvReac Type Severity Reaction Status Date / Time Penicillins AdvReac Intermediate Rash Verified 12/17/24 12:40 Requesting physician: Yaritza Mueller Procedure: This was a Treadmill stress test with myocardial perfusion imaging performed at the [facility] on 12/25/2024. Intravenous line was secured. The patient was attached to electrocardiographic monitoring. Baseline vital signs and ECG were obtained. The patient exercised on the treadmill according to the Maxime protocol. Cardiolite was administered at peak exercise. The patient then went on to obtain myocardial perfusion imaging. Exercise time was 3 minutes and 29 seconds. The patient reached stage II of the Maxime protocol and achieved 5.4 METS. Resting heart rate was 61 bpm and peak heart rate was 131 bpm representing 86% of maximal predicted heart rate. Resting blood pressure was 140/82 and peak blood pressure was 166/84. General Information: Reason for Stress Test: Chest pain, shortness of breath. Cardiac History and Risk Factors: Hypertension. Resting 12 - Lead Electrocardiogram: Normal sinus rhythm, left bundle branch block. Stress Test: Protocol: Maxime protocol treadmill exercise. Exercise Capacity: Fair. Blood Pressure Response: Resting hypertension with exaggerated blood pressure response to exercise. Rhythm: Sinus rhythm with no arrhythmias seen. ST - Response: Uninterpretable due to the presence of baseline left bundle branch block. Patient Response: No chest pain. Shortness of breath with exercise. Interpretation: 1. Uninterpretable treadmill exercise stress test for ischemic ST changes due to the presence of left lateral branch block at baseline. 2. Resting hypertension and exaggerated blood pressure response to exercise. 3. Reduced functional capacity. 4. Myocardial perfusion images will be reported separately.
== END 2024-12-25 08:23 | disposition home or self-care (01) ==
LOC: NM 08:22
PROVIDERS: PCP Nurse Practitioner; Visit Provider Nurse Practitioner
DX: R07.9 Chest pain, unspecified (principal); I10 Essential (primary) hypertension; E78.2 Mixed hyperlipidemia
CPT/HCPCS: 78452; 93017; A9500

== ENCOUNTER 2025-02-06 12:06 | Outpatient (OUT) | payer MEDICARE, OTHER, SELFPAY ==
--- OUTSIDE RECORDS SUMMARY | 2025-02-06 12:11 | XMS_ITS | CCD ---
Author Organization [facility] Care Team Providers Care Register Repairer Name Role Phone FANKRYSTIN, VICTORIA E Unavailable Unavailable PAVLOCK, MAX ROBERTO Unavailable Unavailable FANNING, VICTORIA E Unavailable Unavailable PAVLOCK, MAX ROBERTO Unavailable Unavailable PAN SANDERSON Primary Care Physician Nori Odonnell Unavailable Unavailable AICHHOLZ, YARITZA J Primary Care Physician Wilmer Patino Unavailable Pocos, [...] Pocos, DO Cas Joe Attending Unavailable AICHHOLZ, ETL ANALYST YARITZA Consulting Unavailable AICHHOLZ, ETL ANALYST YARITZA Primary Care Unavailable AICHHOLZ, ETL ANALYST YARITZA Admitting Unavailable AICHHOLZ, ETL ANALYST YARITZA Attending Unavailable AICHHOLZ, ETL ANALYST YARITZA Consulting Unavailable AICHHOLZ, ETL ANALYST YARITZA Primary Care Unavailable AICHHOLZ, ETL ANALYST YARITZA Admitting Unavailable AICHHOLZ, ETL ANALYST YARITZA Attending Unavailable AICHHOLZ, ETL ANALYST YARITZA Consulting Unavailable AICHHOLZ, ETL ANALYST YARITZA Primary Care Unavailable AICHHOLZ, ETL ANALYST YARITZA Admitting Unavailable AICHHOLZ, ETL ANALYST YARITZA Attending Unavailable AICHHOLZ, ETL ANALYST YARITZA Consulting Unavailable AICHHOLZ, ETL ANALYST YARITZA Primary Care Unavailable AICHHOLZ, ETL ANALYST YARITZA Admitting Unavailable AICHHOLZ, ETL ANALYST YARITZA Attending Unavailable AICHHOLZ, ETL ANALYST YARITZA Primary Care Unavailable DR CAS BAIG V Consulting Unavailable AICHHOLZ, ETL ANALYST YARITZA Admitting Unavailable AICHHOLZ, ETL ANALYST YARITZA Attending Unavailable AICHHOLZ, ETL ANALYST YARITZA Consulting Unavailable Aichholz FORM MAKER PLASTER, Yaritza Unavailable Dashawn Cummins MD Primary Care Provider [phone] Aichholz FORM MAKER PLASTER, Yaritza Unavailable MATTHEWROCAELDavi, YARITZA Attending Unavailable Allergies Allergy Classification Reported Allergen(s) Allergy Type Date of Onset Reaction(s) Facility (17 sources) Codeine; Translations: [CODEINE] Drug Allergy 7 nausea, vomiting [facility] Repository (11 sources) Penicillins; Translations: [PENICILLINS] Propensity to adverse reactions to drug (disorder) 7 [facility] Repository (5 sources) Penicillin; Translations: [penicillin] Drug Allergy [facility] (1 source) Penicillin G Drug Allergy [facility] [place] Other Medications Current Medications Medication Drug Class(es) Dates Sig (Normalized) Sig (Original) ashwaganda/dev root (3 sources) Start: 09-15-2021 ashwaganda/dev root ashwaganda/dev root, Oral, Daily Start Date: 09/15/21 Status: Ordered aspirin 81 mg delayed release oral tablet (2 sources) Platelet Aggregation Inhibitor, Nonsteroidal Anti-inflammatory Drug Start: 09-19-2021 Aspirin 81 mg Tab-EC 81 mg = 1 tab(s), Oral, BIDPC, # 60 tab(s), Refills(s) 0, Pharmacy: [address], [address], cm, 09/18/21 6:21:00 EDT, Height/Length Dosing, 73, kg, 09/18/21 6:21:00 EDT, Weight Dosing Start Date: 09/19/21 Status: Ordered Start: 09-19-2021 Aspirin 81 mg Tab-EC 81 mg = 1 tab(s), Oral, BIDPC, # 60 tab(s), Refills(s) 0, Pharmacy: [address], [place], cm, 09/18/21 6:21:00 EDT, Height/Length [...] constipation, # 40 cap(s), Refills(s) 0, Pharmacy: [facility] [employer] [facility], [address], cm, 09/18/21 6:21:00 EDT, Height/Length Dosing, 73, kg, 09/18/21 6:21:00 EDT, Weight Dosing Start Date: 09/19/21 Status: Ordered doxycycline monohydrate 100 mg oral capsule (1 source) Tetracycline-cla ss Drug Start: 05-02-2021 take 1 capsule by mouth every twelve hours Doxycycline Monohydrate 100 MG 1 capsule Orally every 12 hrs for 10 days Apr, Active ezetimibe 10 mg oral tablet (9 sources) Dietary Cholesterol Absorption Inhibitor Start: 09-24-2024 take 1 tablet by mouth once daily ezetimibe (Zetia) 10 MG tablet Take 10 mg by mouth Daily 09/24/2024 Active Fish Oils (3 sources) Start: 09-15-2021 take 1000 mg by mouth once daily Fish Oil 1,000 mg, Oral, Daily, Refill(s) 0, Prophylaxis Start Date: 09/15/21 Status: Ordered folic acid 1 mg oral tablet (9 sources) Start: 06-30-2024 take 1 tablet by [...] Active hydroxychloroquine sulfate 200 mg oral tablet (14 sources) Antimalarial, Antirheumatic Agent Start: 11-23-2023 take [...] Orally Active lamoTRIgine 200 mg oral tablet (14 sources) Mood Stabilizer, Anti-epileptic Agent Start: 09-15-2021 [...] 06/27/2023 12/17/2024 Discontinued (Therapy completed) losartan potassium 50 mg oral tablet (10 sources) Angiotensin 2 Receptor Esau Start: 01-06-2025 End: 04-06-2025 take 1 tablet by mouth in the morning losartan (Cozaar) 50 MG tablet Indications: Primary hypertension Take 1 tablet (50 mg) by mouth in the morning and 1 tablet (50 mg) before bedtime. 180 tablet 01/06/2025 04/06/2025 Active Start: 09-07-2024 End: 01-06-2025 take 1 tablet by mouth once daily losartan (Cozaar) 25 MG tablet Take 25 mg by mouth Daily 09/07/2024 01/06/2025 Discontinued (Reorder) magnesium hydroxide 80 mg/ml oral suspension (2 [...] Ordered 0.4 ml methotrexate 25 mg/ml auto-injector (9 sources) Folate Analog Metabolic Inhibitor Methotrexate, PF, 10 MG/0.4ML solution auto-injector Inject under the skin Active metoprolol tartrate 50 mg oral tablet (16 sources) beta-Adrenergic Esau Start: End: take 1.5 tablets by mouth in the morning metoprolol tartrate (Lopressor) 50 MG tablet Indications: Primary hypertension Take 1.5 tablets (75 mg) by mouth in the morning and 1.5 tablets (75 mg) before bedtime. 270 tablet 01/06/2025 04/06/2025 Active Start: 06-27-2023 End: 01-06-2025 take 1 tablet by mouth in the morning metoprolol tartrate (Lopressor) 50 MG tablet Indications: Primary hypertension Take 1 tablet (50 mg) by mouth in the morning and 1 tablet (50 mg) before bedtime. 180 tablet 1 06/27/2023 01/06/2025 Discontinued (Reorder) Start: 09-21-2021 End: 09-21-2021 Lopressor 25 mg [...] pain, # 40 tab(s), Refills(s) 0, Pharmacy: [address], [address], cm, 09/18/21 6:21:00 EDT, Height/Length Dosing, 73, k... Start Date: 09/19/21 Status: Ordered QUEtiapine 25 mg oral tablet (13 sources) Atypic al Antips ychoti c Start: [...] venlafaxine 150 mg extended release oral capsule (14 sources) Serotonin and Norepinephrine Reuptake Inhibitor Start: 09-15-2021 take 1 capsule by mouth once daily venlafaxine 150 mg Cap-ER 150 mg = 1 cap(s), Oral, Daily, Refills(s) 0, Other (see comment) Start Date: 09/15/21 Status: Ordered Start: 09-15-2021 take 1 capsule by [facility] once daily venlafaxine 150 mg Cap-ER 150 mg = 1 cap(s), Oral, Daily, Refills(s) 0, Other (see comment) Start Date: 09/15/21 Status: Ordered take 1 capsule by [facility] every twenty-four hours in the morning venlafaxine [...] Episodic/Chronic Chronic obstructive pulmonary disease and bronchiectasis (10 sources) Chronic obstructive lung disease; Translations: [Chronic obstructive pulmonary disease, unspecified] Onset: 12-30-2023 12-30-2023 Chronic Deficiency and other anemia (1 source) Iron deficiency anemia; Translations: [Iron deficiency anemia, unspecified] Onset: 09-21-2021 Episodic Disorders of lipid metabolism (14 sources) Mixed hyperlipidemia; Translations: [Mixed hyperlipidemia] Onset: 02-09-2014 12-17-2024 Chronic Esophageal disorders (1 source) Gastroesophageal reflux disease without esophagitis; Translations: [Gastro-esophageal reflux disease without esophagitis] Onset: 09-21-2021 Chronic Essential hypertension (20 sources) Hypertensive disorder; Translations: [Essential hypertension] Onset: 09-20-2021 09-15-2021 Chronic Mood disorders (20 sources) Bipolar disorder; Translations: [Bipolar disorder, unspecified] Onset: 09-20-2021 Resolved: 12-17-2024 09-15-2021 Chronic Nonspecific chest pain (17 sources) Chest pain; Translations: [Chest pain, unspecified] Onset: 12-17-2024 12-17-2024 Episodic Osteoarthritis (13 sources) Arthritis; Translations: [Osteoarthritis of left knee joint] Onset: 12-30-2023 09-15-2021 Chronic Other connective tissue disease (1 source) Artificial knee joint present; Translations: [Presence of left artificial knee joint] Onset: 09-20-2021 Chronic Other non-traumatic joint disorders (1 source) Instability of joint of left knee; Translations: [Other instability, left knee] Episodic Residual codes; unclassified (10 sources) Obstructive sleep apnea syndrome; Translations: [Obstructive [...] 10-28-2022 Episodic Rheumatoid arthritis and related disease (10 sources) Rheumatoid arthritis; Translations: [Rheumatoid arthritis, unspecified] Onset: 12-30-2023 12-30-2023 Chronic Thyroid disorders (14 sources) Hypothyroidism, unspecified; Translations: [Acquired hypothyroidism] Onset: 10-25-2022 Chronic Unclassified (3 sources) Pain of joint of knee 09-15-2021 Past or Other Problems Problem Classification Problem Date Documented Da te Episodic/Chronic Deficiency and other anemia (10 sources) Anemia; Translations: [Anemia, unspecified] Onset: 06-27-2023 06-27-2023 Episodic Fluid and electrolyte disorders (11 sources) Hypo-osmolality and or hyponatremia; Translations: [Hypo-osmolality and hyponatremia] Onset: 09-21-2021 Episodic Immunizations and screening for infectious disease (1 source) Contact with and (suspected) exposure to other viral communicable diseases Onset: 05-02-2021 Resolved: 05-02-2021 Episodic Other lower respiratory disease (1 source) Other specified respiratory disorders Onset: 05-02-2021 Resolved: 05-02-2021 Episodic Other lower respiratory disease (10 sources) Nodule of lung; Translations: [Solitary pulmonary nodule] Onset: 04-03-2018 12-30-2023 Episodic Other nutritional; endocrine; and metabolic disorders (10 sources) Overweight in adulthood with body mass index of 25 or more but less than 30; Translations: [Body mass index (BMI) 25.0-25.9, adult] Onset: 06-27-2023 06-27-2023 Episodic Other screening for suspected conditions (not mental disorders or infectious disease) (20 sources) Encounter for screening mammogram for malignant neoplasm of breast; Translations: [Abnormal results of thyroid function studies] Onset: 07-19-2022 Episodic Other upper respiratory disease (10 sources) Polyp of nasal sinus; Translations: [Other [...] Test Name Value Interpretation Reference Range Facility NM JHON PERF SPECT REST STRon 12-27-2024 [place] [address] Nuclear Medicine Report Signed Patient: ANNE KEMP MR#: [id number] : 1955 Acct:[id number] Age/Sex: 69 / F ADM Date: 12/25/24 Loc: NM Attending Dr: Yaritza Mueller NP Ordering Physician: Yaritza Mueller NP Date of Service: 12/25/24 Procedure(s): NM jhon perf SPECT rest str Accession Number(s): [id number] cc: Yaritza Mueller NP Patient Name: ANNE KEMP MR#: [id number] : 1955 Exam Date: 12/25/2024 Ordering Doctor: MATT MUELLER CNP RADIOLOGY REPORT PROCEDURE: NM JHON PERF SPECT REST STR COMPARISON: None. INDICATIONS: HYPERTENSION, CHEST PAIN TECHNIQUE: Exam Description: Stress/Rest one day protocol gated SPECT Rest Imagin.2 mCi Tc-99m Cardiolite IV on 12/25/2024 Stress Imaging 29.8 mCi Tc-99m Cardiolite IV on 12/25/2024 Exercise Protocol: Maxime Heart Rate (bpm): Rest: 61 Max: 131 PMHR: 86 Blood Pressure: Rest: 140/82 Max: 166/84 Exercise Time: Minutes: 3 Seconds: 29 Stage Reached: Stage: 2 Mets 5.4 Symptoms: Rest and peak stress ECG findings were pending and the EKG portion of the study was pending per attending physician [facility] . For more details please see separate cardiac stress test report. FINDINGS: QUALITY OF STUDY: Good PERFUSION DEFECT: LOCATION: Anterior SIZE: Medium SEVERITY: Mild TYPE: Fixed with LV with adequate thickening and contractility consistent with breast attenuation artifact WALL MOTION: Normal LV SIZE: 91 mL. TID / TCD: 1.0 LVEF: Calculated EF 57%. SUMMARY: Normal myocardial perfusion imaging study CONCLUSION: Normal myocardial perfusion stress study without evidence of ischemia or infarction Normal left ventricle systolic function, ejection fraction 57% No transient ischemic dilatation, TID 1.0 EKG portion of stress test is reported separately Dictated by: Janet Rebollar MD on 12/27/2024 at 18:35 Approved by: Janet Rebollar MD on 12/27/2024 at 18:41 Dictated By: Janet Rebollar M.D. Signed By: 12/27/241841 DD/ 40 TD/TT: Group Chief Operator: [facility] Radiology, Radiologi MD jessica - 12/27/2024 [place] [address] Nuclear Medicine Report Signed Patient: ANNE KEMP MR#: [id number] : 1955 Acct:[id number] Age/Sex: 69 / F ADM Date: 12/25/24 Loc: HUGO Attending Dr: Yaritza Mueller NP Ordering Physician: Yaritza Mueller NP Date of Service: 12/25/24 Procedure(s): NM jhon perf SPECT rest str Accession Number(s): [id number] cc: Yaritza Mueller NP Patient Name: ANNE KEMP MR#: [id number] : 1955 Exam Date: 12/25/2024 Ordering Doctor: MATT MUELLER CNP RADIOLOGY REPORT PROCEDURE: NM JHON PERF SPECT REST STR COMPARISON: None. INDICATIONS: HYPERTENSION, CHEST PAIN TECHNIQUE: Exam Description: Stress/Rest one day protocol gated SPECT Rest Imagin.2 mCi Tc-99m Cardiolite IV on 12/25/2024 Stress Imaging 29.8 mCi Tc-99m Cardiolite IV on 12/25/2024 Exercise Protocol: Maxime Heart Rate (bpm): Rest: 61 Max: 131 PMHR: 86 Blood Pressure: Rest: 140/82 Max: 166/84 Exercise Time: Minutes: 3 Seconds: 29 Stage Reached: Stage: 2 Mets 5.4 Symptoms: Rest and peak stress ECG findings were pending and the EKG portion of the study was pending per attending physician [facility] . For more details please see separate cardiac stress test report. FINDINGS: QUALITY OF STUDY: Good PERFUSION DEFECT: LOCATION: Anterior SIZE: Medium SEVERITY: Mild TYPE: Fixed with LV with adequate thickening and contractility consistent with breast attenuation artifact WALL MOTION: Normal LV SIZE: 91 mL. TID / TCD: 1.0 LVEF: Calculated EF 57%. SUMMARY: Normal myocardial perfusion imaging study CONCLUSION: Normal myocardial perfusion stress study without evidence of ischemia or infarction Normal left ventricle systolic function, ejection fraction 57% No transient ischemic dilatation, TID 1.0 EKG portion of stress test is reported separately Dictated by: Janet Rebollar MD on 12/27/2024 at 18:35 Approved by: Janet Rebollar MD on 12/27/2024 at 18:41 Dictated By: Janet Rebollar M.D. Signed By: 12/27/241841 DD/ 40 TD/TT: Group Chief Operator: [facility] Radiology Study observation (narrative) [facility] NM JHON PERF SPECT REST STROr dered By: Radiologist Radiology on 12-27-2024 [facility] Work Phone: CA ECHO DOPPLER COMPLETEon 0 12-23-2024 [place] [address] Cardiology Report Signed Patient: ANNE KEMP MR#: [id number] : 1955 Acct:[id number] Age/Sex: 69 / F ADM Date: 12/23/24 Loc: CARD Attending Dr: Yaritza Mueller NP Ordering Physician: Yaritza Mueller NP Date of Service: 12/23/24 Procedure(s): CA echo doppler complete Accession Number(s): [id number] cc: Yaritza Mueller NP Patient Name: ANNE KEMP MR#: [id number] : 1955 Exam Date: 12/23/2024 Ordering Doctor: [...] Area (VTI): 2.36 cm2, 2.36 cm2 Deceleration Titus: Pressure Half-Time: Peak Velocity(Antegrade Flow): 1.23 m/s [...] La Cruz M.D. (more content not included)... [facility] Radiology, Radiologi MD jessica - 12/23/2024 [place] [address] Cardiology Report Signed Patient: ANNE KEMP MR#: [id number] : 1955 Acct:[id number] Age/Sex: 69 / F ADM Date: 12/23/24 Loc: CARD Attending Dr: Yaritza Mueller NP Ordering Physician: Yaritza Mueller NP Date of Service: 12/23/24 Procedure(s): CA echo doppler complete Accession Number(s): [id number] cc: Yaritza Mueller NP Patient Name: ANNE KEMP MR#: [id number] : 1955 Exam Date: 12/23/2024 Ordering Doctor: MATT MUELLER ETL ANALYST ECHOCARDIOGRAM REPORT PROCEDURE: CA ECHO DOPPLER COMPLETE [...] Area (VTI): 2.36 cm2, 2.36 cm2 Deceleration Titus: Pressure Half-Time: Peak Velocity(Antegrade Flow): 1.23 m/s [...] M.D. Signed By: 12/23/241820 DD/ 19 TD/TT: Group Chief Operator: [facility] Radiology Study observation (narrative) [facility] CA ECHO DOPPLER COMPLETEOrde red By: Radiologist Radiology on 12-23-2024 [facility] Work Phone: GGTon 11-07-2022 Gamma glutamyl transferase [Catalytic activity/Vol] 122 U/L Critically high 8-55 [facility] Comment on above: Performed By: #### L CAROLA, GGT #### [facility] [address] [place] [address] Dr. Sarah Beth Benton LIVER PROFILEon 11-07-2022 Albumin [Mass/Vol] 3.8 g/dL Normal 3.4-5.0 [facility] Comment on above: Performed By: #### L IVER, GGT #### [facility] [address] [place] [address] Dr. Sarah Beth Benton Albumin/Globulin [Mass ratio] 1.0 {ratio} Normal [facility] Comment on above: Performed By: #### L IVER, GGT #### [facility] [address] [place] [address] Dr. Sarah Beth Benton ALP [Catalytic activity/Vol] 119 U/L Critically high 46-116 [facility] Comment on above: Performed By: #### L IVER, GGT #### [facility] [address] [place] [address] Dr. Sarah Beth Benton ALT [Catalytic activity/Vol] 27 U/L Normal 14-59 [facility] Comment on above: Performed By: #### L IVER, GGT #### [facility] [address] [place] [address] Dr. Sarah Beth Benton AST [Catalytic activity/Vol] 25 U/L Normal 15-37 [facility] Comment on above: Performed By: #### L IVER, GGT #### [facility] [address] [place] [address] Dr. Sarah Beth Benton BILI, CONJUGATED 0.1 mg/dL Normal 0.0-0.2 [facility] Comment on above: Performed By: #### L IVER, GGT #### [facility] [address] [place] [address] Dr. Sarah Beth Benton Bilirubin [Mass/Vol] 0.5 mg/dL Normal 0.2-1.0 [facility] Comment on above: Performed By: #### L IVER, GGT #### [facility] [address] [place] [address] Dr. Sarah Beth Benton Globulin (S) [Mass/Vol] 3.8 g/dL Normal [facility] Comment on above: Performed By: #### L IVER, GGT #### [facility] [address] [place] [address] Dr. Sarah Beth Benton Protein [Mass/Vol] 7.6 g/dL Normal 6.4-8.2 [facility] Comment on above: Performed By: #### L IVER, GGT #### [facility] [address] [place] [address] Dr. Sarah Beth Benton FREE T4on 10-25-2022 Free T4 [Mass/Vol] 0.76 ng/dL Normal 0.76-1.46 [facility] Comment on above: Performed By: #### L IVER, GGT #### [facility] [address] [place] [address] Dr. Sarah Beth Benton HEMOGRAM AND PLATELon 2022 Hematocrit (Bld) [Volume fraction] 35.9 % Critically low 36.0-48.0 [facility] Comment on above: Performed By: #### L IVER, GGT #### [facility] [address] [place] [address] Dr. Sarah Beth Benton Hemoglobin (Bld) [Mass/Vol] 12.3 g/dL Normal 12.0-16.0 [facility] Comment on above: Performed By: #### L IVER, GGT #### [facility] [address] [place] [address] Dr. Sarah Beth Benton MCH (RBC) [Entitic mass] 30.6 pg Normal 26.7-34.0 [facility] Comment on above: Performed By: #### L IVER, GGT #### [facility] [address] [place] [address] Dr. Sarah Beth Benton MCHC (RBC) [Mass/Vol] 34.3 g/dL Normal 29.9-35.2 [facility] Comment on above: Performed By: #### L IVER, GGT #### [facility] [address] [place] [address] Dr. Sarah Beth Benton MCV (RBC) [Entitic vol] 89.3 fL Normal 81.0-99.0 [facility] Comment on above: Performed By: #### L IVER, GGT #### [facility] [address] [place] [address] Dr. Sarah Beth Benton PLT 356 103/ul Normal 150-450 [facility] Comment on above: Performed By: #### L IVER, GGT #### [facility] [address] [place], [place] [address] Dr. Sarah Beth Benton RBC 4.02 106/ul Critically low 4.20-5.40 [facility] Comment on above: Performed By: #### L IVER, GGT #### [facility] [address] [place], [place] [address] Dr. Sarah Beth Benton WBC 5.9 103/ul Normal 4.0-11.0 [facility] Comment on above: Performed By: #### L IVER, GGT #### [facility] [address] [place], [place] [address] Dr. Sarah Beth Benton MG MAMM SCREEN 3D DOUG CADon 10-25-2022 MG MAMM SCREEN 3D DOUG CAD Patient: ANNE KEMP Exam Date: 10/25/2022 : 1955 Gender:F Ordering : MATT YARITZAHeath MUELLER [facility] Admission #: [id number] Family : Order #: [id number] CLICK HERE TO VIEW EXAM RADIOLOGY REPORT [...] lung cancer at age 69. LOCATION: [facility] BREAST COMPOSITION: Scattered areas fibroglandular density. FINDINGS: [...] MD on 10/26/2022 at 12:06 Normal [facility] PROF 14(COMP METB)on 023 Albumin [Mass/Vol] 3.8 g/dL Normal 3.4-5.0 [facility] Comment on above: Performed By: #### P THINT #### [facility] [address] [place] [address] Dr. Sarah Beth Benton Albumin/Globulin [Mass ratio] 1.0 {ratio} Normal [facility] Comment on above: Performed By: #### P THINT #### [facility] [address] [place] [address] [address] Sarah Beth Benton ALP [Catalytic activity/Vol] 139 U/L Critically high 46-116 [facility] Comment on above: Performed By: #### P THINT #### [facility] [address] [place] [address] Dr. Sarah Beth Benton ALT [Catalytic activity/Vol] 29 U/L Normal 14-59 [facility] Comment on above: Performed By: #### P THINT #### [facility] [address] [place] [address] Dr. Sarah Beth Benton Anion gap [Moles/Vol] 10.2 mmol/L Normal [facility] Comment on above: Performed By: #### P THINT #### [facility] [address] [place] [address] Dr. Sarah Beth Benton AST [Catalytic activity/Vol] 23 U/L Normal 15-37 [facility] Comment on above: Performed By: #### P THINT #### [facility] [address] [place] [address] Dr. Sarah Beth Benton Bilirubin [Mass/Vol] 0.3 mg/dL Normal 0.2-1.0 [facility] Comment on above: Performed By: #### P THINT #### [facility] [address] [place] [address] Dr. Sarah Beth Benton Calcium [Mass/Vol] 9.3 mg/dL Normal 8.5-10.1 [facility] Comment on above: Performed By: #### P THINT #### [facility] [address] [place] [address] Dr. Sarah Beth Benton Chloride [Moles/Vol] 98 mmol/L Normal 98-107 [facility] Comment on above: Performed By: #### P THINT #### [facility] [address] [place] [address] [address] Sarah Beth Benton CO2 [Moles/Vol] 30.7 mmol/L Normal 21.0-32.0 [facility] Comment on above: Performed By: #### P THINT #### [facility] [address] [place] [address] [address] Sarah Beth Benton Creatinine [Mass/Vol] 0.86 mg/dL Normal 0.55-1.02 [facility] Comment on above: Performed By: #### P THINT #### [facility] [address] [place] [address] Dr. Sarah Beth Benton EGFR-AF MALDIVIAN >60 Normal >=60 [facility] Comment on above: Performed By: #### P THINT #### [facility] Laboratory [address] [place] [address] Dr. Sarah Beth Benton EGFR-NON AF MALDIVIAN >60 Normal >=60 [facility] Comment on above: Performed By: #### P THINT #### [facility] [address] [address] [address] Sarah Beth Benton Globulin (S) [Mass/Vol] 3.8 g/dL Normal [facility] Comment on above: Performed By: #### P THINT #### [facility] [address] [address] [address] Sarah Beth Benton Glucose [Mass/Vol] 89 mg/dL Normal 74-106 [facility] Comment on above: Performed By: #### P THINT #### [facility] [address] [address] [address] Sarah Beth Benton Potassium [Moles/Vol] 3.9 mmol/L Normal 3.5-5.1 [facility] Comment on above: Performed By: #### P THINT #### [facility] [address] [place] [address] Dr. Sarah Beth Benton Protein [Mass/Vol] 7.6 g/dL Normal 6.4-8.2 [facility] Comment on above: Performed By: #### P THINT #### [facility] [address] [address] [address] Sarah Beth Benton Sodium [Moles/Vol] 135 mmol/L Critically low 136-145 [facility] Comment on above: Performed By: #### P THINT #### [facility] [address] [address] [address] Sarah Beth Benton Urea nitrogen [Mass/Vol] 17.0 mg/dL Normal 7.0-18.0 [facility] Comment on above: Performed By: #### P THINT #### [facility] [address] [address] [address] Sarah Beth Benton Urea nitrogen/Creatinine [Mass ratio] 19.8 mg/mg Normal [facility] Comment on above: Performed By: #### P THINT #### [facility] [address] [place] [address] Dr. Sarah Beth Benton TSHon 10-25-2022 TSH 2.754 uIU/mL Normal 0.358-3.740 [facility] Comment on above: Performed By: #### P THINT #### [facility] [address] [address] [address] Sarah Beth Benton METANEPHRINES PLASMA FREEon 07-24-2022 Metanephrine, Pl 17.5 pg/mL Normal 0.0-88.0 [facility] Comment on above: Performed By: #### M ETANPF #### [facility] [address] [address] [address] Sarah Beth Benton Normetanephrine, Pl 90.0 pg/mL Normal 0.0-285.2 [facility] Comment on above: Performed By: #### M ETANPF #### [facility] [address] [place] [address] Dr. Sarah Beth Benton ACTH, PLASMAon 07-20-2022 ACTH, Plasma 38.6 pg/mL Normal 7.2-63.3 [facility] Comment on above: Result Comment: ACTH reference interval for samples collected between 7 and 10 AM. Performed By: #### P THINT #### [facility] [address] [place] [address] Dr. Sarah Beth Benton THYROID ANTIBODIESon 023 Thyroglobulin Antibody <1.0 Normal 0.0-0.9 [facility] Comment on above: Result Comment: Thyr oglobulin Antibody measured by TRELYS Methodology Performed By: #### L IVER, GGT #### [facility] [address] [place] [address] Dr. Sarah Beth Benton Thyroid Peroxidase (TPO) Ab <9 Normal 0-34 [facility] Comment on above: Performed By: #### L IVER, GGT #### [facility] [address] [place] [address] Dr. Sarah Beth Benton FREE T3on 07-19-2022 FREE T3 2.27 pg/mlL Normal 2.18-3.98 [facility] Comment on above: Performed By: #### L IVER, GGT #### [facility] [address] [place] [address] Dr. Sarah Beth Benton FREE T4on 07-19-2022 Free T4 [Mass/Vol] 0.72 ng/dL Critically low 0.76-1.46 [facility] Comment on above: Performed By: #### P THINT #### [facility] [address] [place] [address] Dr. Sarah Beth Benton MAGNESIUMon 07-19-2022 Magnesium [Mass/Vol] 2.4 mg/dL Normal 1.8-2.4 [facility] Comment on above: Performed By: #### L IVER, GGT #### [facility] [address] [place] [address] Dr. Sarah Beth Benton TROPONIN, HIGH SENSITIVITYon 07-19-2022 HSTROP 5.3 pg/mL Normal 4.0-51.3 [facility] Comment on above: Result Comment: CUT- OFF POINTS HAVE BEEN ESTABLISHED BASED ON THE FOURTH UNIVERSAL DEFINITIONS OF MYOCARDIAL INFARCTION. THE UPPER REFERENCE LIMIT (URL) OF TROPONIN, DEFINED THE 99TH PERCENTILE OF cTnI DISTRIBUTION IN A REFERENCE POPULATION, HAS BEEN CONFIRMED THE DECISION THRESHOLD FOR CT DIAGNOSIS. Performed By: #### L IVER, GGT #### [facility] [address] [place] [address] Dr. Sarah Beth Benton TSHon 07-19-2022 TSH 4.556 uIU/mL Critically high 0.358-3.740 [facility] Comment on above: Performed By: #### L CAROLA GGT #### [facility] [address] [place] [address] Dr. Sarah Beth Benton RENIN ACTIVITYon 07-14-2022 Renin Activity, Plasma 1.051 ng/mL/hr Normal 0.167-5.380 [facility] Comment on above: Performed By: #### P THINT #### [facility] [address] [place] [address] Dr. Sarah Beth Benton CORTISOLon 07-12-2022 Cortisol 29.1 ug/dL Normal [facility] Comment on above: Result Comment: Corby isol AM 6.2 - 19.4 Cortisol PM 2.3 - 11.9 Performed By: #### L CAROLA GGT #### [facility] [address] [place] [address] Dr. Sarah Beth Benton PTH INTACTon 07-12-2022 PTH, Intact 29 pg/mL Normal 15-65 [facility] Comment on above: Performed By: #### P THINT #### [facility] [address] [place] [address] Dr. Sarah Beth Benton CBC AUTO DIFFon 07-11-2022 BASO # 0.1 103/ul Normal 0.0-0.1 [facility] Comment on above: Performed By: #### C BC #### [facility] [address] [place] [address] Dr. Sarah Beth Benton Basophils/100 WBC (Bld) 1.1 % Normal 0.2-2.0 [facility] Comment on above: Performed By: #### C BC #### [facility] [address] [place] [address] Dr. Sarah Beth Benton EO # 0.2 103/ul Normal 0.0-0.7 [facility] Comment on above: Performed By: #### C BC #### [facility] [address] [place] [address] Dr. Sarah Beth Benton Eosinophils/100 WBC (Bld) 3.2 % Normal 0.9-7.0 [facility] Comment on above: Performed By: #### C BC #### [facility] [address] [place] [address] Dr. Sarah Beth Benton Erythrocyte distribution width (RBC) [Ratio] 12.7 % Normal 11.0-15.0 [facility] Comment on above: Performed By: #### C BC #### [facility] [address] [place] [address] Dr. Sarah Beth Benton Hematocrit (Bld) [Volume fraction] 39.2 % Normal 36.0-48.0 [facility] Comment on above: Performed By: #### C BC #### [facility] [address] [place] [address] Dr. Sarah Beth Benton Hemoglobin (Bld) [Mass/Vol] 12.8 g/dL Normal 12.0-16.0 [facility] Comment on above: Performed By: #### C BC #### [facility] [address] [place] [address] Dr. Sarah Beth Benton IG # 0.01 10e3/ul Normal 0.00-0.03 [facility] Comment on above: Performed By: #### C BC #### [facility] [address] [place] [address] Dr. Sarah Beth Benton IG % 0.2 % Normal 0.0-0.5 [facility] Comment on above: Performed By: #### C BC #### [facility] [address] [place] [address] Dr. Sarah Beth Benton LYMPH # 1.9 103/ul Normal 1.2-3.8 [facility] Comment on above: Performed By: #### C BC #### [facility] [address] [place] [address] Dr. Sarah Beth Benton Lymphocytes/100 WBC (Bld) 41.1 % Normal 20.5-60.0 [facility] Comment on above: Performed By: #### C BC #### [facility] [address] [place] [address] Dr. Sarah Beth Benton MANUAL DIFF REQ NO Normal [facility] Comment on above: Performed By: #### C BC #### [facility] [address] [place] [address] Dr. Sarah Beth Benton MCH (RBC) [Entitic mass] 30.2 pg Normal 26.7-34.0 [facility] Comment on above: Performed By: #### C BC #### [facility] [address] [place] [address] Dr. Sarah Beth Benton MCHC (RBC) [Mass/Vol] 32.7 g/dL Normal 29.9-35.2 [facility] Comment on above: Performed By: #### C BC #### [facility] [address] [place] [address] Dr. Sarah Beth Benton MCV (RBC) [Entitic vol] 92.5 fL Normal 81.0-99.0 [facility] Comment on above: Performed By: #### C BC #### [facility] [address] [place] [address] Dr. Sarah Beth Benton MONO # 0.7 103/ul Normal 0.3-0.8 [facility] Comment on above: Performed By: #### C BC #### [facility] [address] [place] [address] Dr. Sarha Beth Benton Monocytes/100 WBC (Bld) 14.0 % Critically high 1.7-12.0 [facility] Comment on above: Performed By: #### C BC #### [facility] [address] [place] [address] Dr. Sarah Beth Benton NEUT # 1.9 103/ul Normal 1.4-6.5 [facility] Comment on above: Performed By: #### C BC #### [facility] [address] [place] [address] Dr. Sarah Beth Benton Neutrophils/100 WBC (Bld) 40.4 % Critically low 43.0-75.0 [facility] Comment on above: Performed By: #### C BC #### [facility] [address] [place] [address] Dr. Sarah Beth Benton Platelet mean volume (Bld) [Entitic vol] 8.2 fL Critically low 9.5-13.5 [facility] Comment on above: Performed By: #### C BC #### [facility] [address] [place] [address] Dr. Sarah Beth Benton PLT 357 103/ul Normal 150-450 [facility] Comment on above: Performed By: #### C BC #### [facility] [address] [place] [address] Dr. Sarah Beth Benton RBC 4.24 106/ul Normal 4.20-5.40 [facility] Comment on above: Performed By: #### C BC #### [facility] [address] [place] [address] Dr. Sarah Beth Benton WBC 4.7 103/ul Normal 4.0-11.0 [facility] Comment on above: Performed By: #### C BC #### [facility] [address] [place] [address] Dr. Sarah Beth Benton CPKon 07-11-2022 CK [Catalytic activity/Vol] 77 U/L Normal 26-192 [facility] Comment on above: Performed By: #### C MP, TSH, CK, LIPID #### [facility] [address] [place] [address] Dr. Sarah Beth Benton FREE T4on 07-11-2022 Free T4 [Mass/Vol] 0.75 ng/dL Critically low 0.76-1.46 [facility] Comment on above: Performed By: #### L IVER, GGT #### [facility] [address] [place] [address] Dr. Sarah Beth Benton LIPID PROFILEon 07-11-2022 CHOL-HDL RATIO NORM SEE BELOW Normal [facility] Comment on above: Result Comment: 3.3 - 4.4 LOW RISK 4.4 - 7.1 AVERAGE RISK 7.1 - 11.0 MODERATE RISK >11.0 HIGH RISK Performed By: #### C MP, TSH, CK, LIPID #### [facility] [address] [place] [address] Dr. Sarah Beth Benton Cholesterol [Mass/Vol] 292 mg/dL Critically high <=200 [facility] Comment on above: Performed By: #### C MP, TSH, CK, LIPID #### [facility] [address] [address] [address] Sarah Beth Benton Cholesterol in HDL [Mass/Vol] 67 mg/dL Critically high 40-60 [facility] Comment on above: Performed By: #### C MP, TSH, CK, LIPID #### [facility] [address] [address] [address] Sarah Beth Benton Cholesterol in LDL [Mass/Vol] 201.6 mg/dL Normal [facility] Comment on above: Performed By: #### C MP, TSH, CK, LIPID #### [facility] [address] [address] [address] Sarah Beth Benton Cholesterol.total/Ch olesterol in HDL [Mass ratio] 4.4 {ratio} Normal [facility] Comment on above: Performed By: #### C MP, TSH, CK, LIPID #### [facility] [address] [address] [address] Sarah Beth Benton HDL NORMAL > or = 60 mg/dl - LO W CARDIOVASCULAR RISK <40 mg/dl - HIGH CARDIOVASCULAR RISK Normal [facility] Comment on above: Performed By: #### C MP, TSH, CK, LIPID #### [facility] [address] [address] [address] Sarah Beth Benton LDL CALC NORMAL SEE BELOW Normal [facility] Comment on above: Result Comment: <100 mg/dl OPTIMAL 100 - 129 mg/dl NEAR OR ABOVE OPTIMAL 130 - 159 mg/dl BORDERLINE HIGH 160 - 189 mg/dl HIGH >190 mg/dl VERY HIGH Performed By: #### C MP, TSH, CK, LIPID #### [facility] [address] [address] [address] Sarah Beth Benton Triglyceride [Mass/Vol] 117 mg/dL Normal <=150 [facility] Comment on above: Performed By: #### C MP, TSH, CK, LIPID #### [facility] [address] [address] [address] Sarah Beth Benton VLDL CALC 23.4 mg/dL Normal [facility] Comment on above: Performed By: #### C MP, TSH, CK, LIPID #### [facility] [address] [address] [address] Sarah Beth Benton MICROALBUMIN, RAND URon mALB 1.6 mg/L Normal <=30.0 [facility] Comment on above: Performed By: #### P THINT #### [facility] [address] [address] [address] Sarah Beth Benton PROF 14(COMP METB)on 023 Albumin [Mass/Vol] 4.0 g/dL Normal 3.4-5.0 [facility] Comment on above: Performed By: #### C MP, TSH, CK, LIPID #### [facility] [address] [place] [address] Dr. Sarah Beth Benton Albumin/Globulin [Mass ratio] 1.1 {ratio} Normal [facility] Comment on above: Performed By: #### C MP, TSH, CK, LIPID #### [facility] [address] [place] [address] Dr. Sarah Beth Benton ALP [Catalytic activity/Vol] 109 U/L Normal 46-116 [facility] Comment on above: Performed By: #### C MP, TSH, CK, LIPID #### [facility] [address] [place] [address] Dr. Sarah Beth Benton ALT [Catalytic activity/Vol] 28 U/L Normal 14-59 [facility] Comment on above: Performed By: #### C MP, TSH, CK, LIPID #### [facility] [address] [place] [address] Dr. Sarah Beth Benton Anion gap [Moles/Vol] 11.7 mmol/L Normal [facility] Comment on above: Performed By: #### C MP, TSH, CK, LIPID #### [facility] [address] [place] [address] Dr. Sarah Beth Benton AST [Catalytic activity/Vol] 28 U/L Normal 15-37 [facility] Comment on above: Performed By: #### C MP, TSH, CK, LIPID #### [facility] [address] [address] [address] Sarah Beth Benton Bilirubin [Mass/Vol] 0.4 mg/dL Normal 0.2-1.0 [facility] Comment on above: Performed By: #### C MP, TSH, CK, LIPID #### [facility] [address] [address] [address] Sarah Beth Benton Calcium [Mass/Vol] 9.4 mg/dL Normal 8.5-10.1 [facility] Comment on above: Performed By: #### C MP, TSH, CK, LIPID #### [facility] [address] [address] [address] Sarah Beth Benton Chloride [Moles/Vol] 100 mmol/L Normal 98-107 [facility] Comment on above: Performed By: #### C MP, TSH, CK, LIPID #### [facility] [address] [place] [address] Dr. Sarah Beth Benton CO2 [Moles/Vol] 32.0 mmol/L Normal 21.0-32.0 [facility] Comment on above: Performed By: #### C MP, TSH, CK, LIPID #### [facility] [address] [address] [address] Sarah Beth Benton Creatinine [Mass/Vol] 0.85 mg/dL Normal 0.55-1.02 [facility] Comment on above: Performed By: #### C MP, TSH, CK, LIPID #### [facility] [address] [place] [address] Dr. Sarah Beth Benton EGFR-AF MALDIVIAN >60 Normal >=60 [facility] Comment on above: Performed By: #### C MP, TSH, CK, LIPID #### [facility] [address] [place] [address] Dr. Sarah Beth Benton EGFR-NON AF MALDIVIAN >60 Normal >=60 [facility] Comment on above: Performed By: #### C MP, TSH, CK, LIPID #### [facility] [address] [place] [address] Dr. Sarah Beth Benton Globulin (S) [Mass/Vol] 3.7 g/dL Normal [facility] Comment on above: Performed By: #### C MP, TSH, CK, LIPID #### [facility] [address] [address] [address] Sarah Beth Benton Glucose [Mass/Vol] 79 mg/dL Normal 74-106 [facility] Comment on above: Performed By: #### C MP, TSH, CK, LIPID #### [facility] [address] [place] [address] Dr. Sarah Beth Benton Potassium [Moles/Vol] 4.7 mmol/L Normal 3.5-5.1 [facility] Comment on above: Performed By: #### C MP, TSH, CK, LIPID #### [facility] [address] [place] [address] Dr. Sarah Beth Benton Protein [Mass/Vol] 7.7 g/dL Normal 6.4-8.2 [facility] Comment on above: Performed By: #### C MP, TSH, CK, LIPID #### [facility] [address] [place] [address] Dr. Sarah Beth Benton Sodium [Moles/Vol] 139 mmol/L Normal 136-145 [facility] Comment on above: Performed By: #### C MP, TSH, CK, LIPID #### [facility] [address] [place] [address] Dr. Sarah Beth Benton Urea nitrogen [Mass/Vol] 16.0 mg/dL Normal 7.0-18.0 [facility] Comment on above: Performed By: #### C MP, TSH, CK, LIPID #### [facility] [address] [place] [address] Dr. Sarah Beth Benton Urea nitrogen/Creatinine [Mass ratio] 18.8 mg/mg Normal [facility] Comment on above: Performed By: #### C MP, TSH, CK, LIPID #### [facility] [address] [place] [address] Dr. Sarah Beth Benton TSHon 07-11-2022 TSH 5.279 uIU/mL Critically high 0.358-3.740 [facility] Comment on above: Performed By: #### C MP, TSH, CK, LIPID #### [facility] [address] [address] [address] Sarah Beth Benton UA RANDOM W/MICROSCOPICon BACTERIA NONE SEEN Normal NONE SEEN [facility] Comment on above: Performed By: #### U AMIC #### [facility] [address] [address] [address] Sarah Beth Benton Bilirubin Ql (U) Negative Normal NEGATIVE [facility] Comment on above: Performed By: #### U AMIC #### [facility] [address] [address] [address] Sarah Beth Benton CAST NONE SEEN Normal NONE SEEN [facility] Comment on above: Performed By: #### U AMIC #### [facility] [address] [place] [address] Dr. Sarah Beth Benton Clarity (U) CLEAR Normal CLEAR [facility] Comment on above: Performed By: #### U AMIC #### [facility] [address] [place] [address] Dr. Sarah Beth Benton Color (U) YELLOW Normal YELLOW [facility] Comment on above: Performed By: #### U AMIC #### [facility] [address] [address] [address] Sarah Beth Benton Crystals LM Nom (Urine sed) NONE SEEN Normal NONE SEEN [facility] Comment on above: Performed By: #### U AMIC #### [facility] [address] [place] [address] Dr. Sarah Beth Benton Epithelial cells LM Ql (Urine sed) FEW Abnormal NONE SEEN /RARE [facility] Comment on above: Performed By: #### U AMIC #### [facility] [address] [place] [address] Dr. Sarah Beth Benton Glucose Ql (U) Negative Normal NEGATIVE [facility] Comment on above: Performed By: #### U AMIC #### [facility] [address] [place] [address] Dr. Sarah Beth Benton Hemoglobin Ql (U) Negative Normal NEGATIVE [facility] Comment on above: Performed By: #### U AMIC #### [facility] [address] [place] [address] Dr. Sarah Beth Benton Ketones Ql (U) Negative Normal NEGATIVE [facility] Comment on above: Performed By: #### U AMIC #### [facility] [address] [place] [address] Dr. Sarah Beth Benton LEUKOCYTES Negative Normal NEGATIVE [facility] Comment on above: Performed By: #### U AMIC #### [facility] [address] [place] [address] Dr. Sarah Beth Benton MUCOUS SMALL Abnormal NONE SEEN [facility] Comment on above: Performed By: #### U AMIC #### [facility] [address] [place] [address] Dr. Sarah Beth Benton Nitrite Ql (U) Negative Normal NEGATIVE [facility] Comment on above: Performed By: #### U AMIC #### [facility] [address] [place] [address] Dr. Sarah Beth Benton pH (U) 6.0 [pH] Normal 5-9 [facility] Comment on above: Performed By: #### U AMIC #### [facility] [address] [place] [address] Dr. Sarah Beth Benton RBC NONE SEEN Abnormal 0-2 [facility] Comment on above: Performed By: #### U AMIC #### [facility] [address] [place] [address] Dr. Sarah Beth Benton SPEC GRAVITY 1.025 Normal 1.005-<=1.0 25 [facility] Comment on above: Performed By: #### U AMIC #### [facility] [address] [place] [address] Dr. Sarah Beth Benton UA PROTEIN Negative Normal NEGATIVE/ TRACE [facility] Comment on above: Performed By: #### U AMIC #### [facility] [address] [place] [address] Dr. Sarah Beth Benton Urobilinogen Qn (U) 0.2 {Becca'U}/dL Normal 0.2 - 1. 0 [facility] Comment on above: Performed By: #### U AMIC #### [facility] [address] [place] [address] Dr. Sarah Beth Benton WBC NONE SEEN Normal NONE SEEN [facility] Comment on above: Performed By: #### U [facility] #### [facility] [address] [place] [address] Dr. Sarah Beth Benton Insurance Correspondence Off ice02-26-2022 Insurance Correspondence Office [phone] [id number]#1.00CD:1 27 Normal [facility] Insurance Correspondence Office [id number]#1.00CD:1 27 [facility] Insurance Correspondence Off ice11-21-2021 Insurance Correspondence Office [id number]#1.00CD: 127 [facility] Insurance Correspondence Off ice11-20-2021 Insurance Correspondence Office [id number]#1.00CD :127 [facility] Preoperative Documentson Preoperative Documents [id number]#1.00C D:127 [facility] Coding Summary.on 09-29-2021 Coding Summary. CD:[id number]:[id number] Gh0b Ww+PGhlYWQ+XU9LIPUzO60te QKxvI0ON8sEQS1IROVGTKPZC A6YSQ9cnKG4MVlaA9ZcypMk NpdozBRdJT16IUc1BVL1yUzk IHyosD9weJXcU2v5IqOaMW88 zL05VNvkARGcHgW0KlGdvfgp bWFy N5dgBmHkkOShBau+PHRhYmxl IHdpZHRoPScxMDAlJyBzdHls GI7kBf1jZMVbQSMrmXamcEEb OiBj j7jcZYNgOEokKA2dhIjuH2Ub oNM1ASMce4z5Jv57zPX+PHRk CQC9sVfwJFegq888GiSbp4gk IDM3 gDDkQBruNHR7O82ai7Q6HDZm IYToALG1gYK1sI2ymKdxvxew X1UurBLkJmF8AOK1pZLonQ6c bGln gwhitG4pHhw+C79GAZ7FQBZS VK8BClr5U3YtYfbyhCI+PC90 WELbSV80qFJbjXKcw7kkzDc6 JzEw MVMwDPT3xUneCOdtd1JbDKQb M93mdXGip9J3LWFchPokzQMs BnTcjHD0gH7nRQmbpvnhi8tw dzsn Soysx3dlnd89tF76O14tVAig RDPsVME5UVNlIXXjrAepyl5t tC2sBv0+VOnai2csz4milOe9 IjIw EZGfobUeqZjgJWA7f2IpJe20 U8PjaKcvi0KtBnm9lf33nUPv n7X0nEV0GUthSVHtpQ9tQRyz ZnQ6 AKYeFnAodF22xXZnCPoaRf3r wIqvcMuoVU8uWKIoomzqUIBz sT3xMOZarPPukLvcZI1nUWXr bjtm n707NdFzIGC2YOFhqZWlS0Wo sJ5hFfRnFOKqYMLiH1LjyTPi RIocV414PUuyMvL1GYBadaBg Y2Fs ENDbeKapIbB7u6D1Mc0Eb7Qj eqmkXGV9TRqrRLP7ZgSkUfJw ZpB5U0ErXnc9PQUnbYtzOF4y J3Bh VOLeghnzfwqrxYS7XBBdTRQi yO86rSSsVEblAu1tk7P6x052 TZCeTPVeuM05Vs6xgIeyMXBj dCBU aN7lqxzfo5pwzwnbJlWkZQCe LUk1OWa5EJGfwMynMgNiVAK4 BaW9NYA2cBLkmF4eoRpuzapl dG9w Oyc+A42rcV5mXHF3KPA1gxsm VEGprdXpZS55ML21T5UvArvb dGFibGU+UDBzfsHflEshPL4d YmFj q0alz7MkBDkrM3TlTQFiVEsz Yyf5APSnHLS9cVI8iJ9sVFSt DBmts5B3tON0S6IeqaWoud7s b2xs RBEeETqoJ02hjVVoe3S3XQFt rZB9FYRtaUuuYhTxeZ65Shb+ OCCzzWmrr9LxGeydn2ieg3yt dGg9 PaJlMPRujhNzdSwtVXK7b8Ra Ww10S48qHFauFOWuCVUqMGUq KSQpkVolds8lfR3hDj2+PGNv bCB3 nBI6gL1pFEFwHuD3YOvcL224 CdDwvVSbQbtmv7aks6tjsFb7 BbSzRFOspkVflHkeZBK2p3Cl Lz48 U97oUZlrYGYjVZDkDOLbAHNe dCqcgv5smQ5yHd2+UV7zn2hg qf45eR22nDA+KBMgFLW4rYdz PSdw QDGxmN0wAIyeLlU4WLUkWbNw zS24zDIaDNsoWv7ewAzopHaj XV9eNGWrfdmde233PbWor4et IDEw kMWmUNpsXEQ4N52na2L4PMRq OPQzDSE3sMH2dU0nuXmkckwn bGVmdDsgdmVydGljYWwtYWxp Z246 IHRvcDsnPlBhdGllbnQgTmFt THk6F2BiKnc4YBSdsNbpYV4e tBNqFBhkQj3niCpdqTleFV0k NTBp bkevi876VvGpq1fcUJSotAMm KHksVSC4L04bh3B1USOkLDPd GTO1vHU2eT9gwStmnwlyiTIu dDsg qsWguJhuEAmtCQtgB228EEJi vCmkAwEhfkBtJPPmoMX7OV13 YR81lEGrs0U8zLX0X7DaJXGx bmct djtliJT9PJUuGKBksS03Di1e xHlbLv9jJPScUAZ0TBLojJTq T7XpwW5xQqWvFYQdHTDkT1Ma eHQt TIglU596ANhiIqX7UVIwnhLc D9MzKJCugMsvQjL7o4Q4Ik4X H6B6MR51FK27kKCql2D3wAV6 J3Bh WIWxulrlcrcokCP2SQOqNKMi nO10Lk1rpRkiIg3sJMMwKTL1 ARUyyJDdR0NwhF1tMnSvUMZl MDAw E9HufMGuKEgeB108LKsaNvU8 IHJbljScC9QoPQRwiBakWdG2 i2K4Ls0XUAl8IV19NH93pMBd c3R5 cBD9R5NtKYZubzmsfhblkOL4 WJGrBYPbmS07Fv2yaZniOo2t BMErVRS9XJBddFBhQ4StqK4v OiAj HDUnRYLkV3BmkSKyDBksF637 XNijXwF4IZQgeaYcI1SfZMQg oZxcDmZ2d6W4Dw2OHSIyUD52 IFR5 gWC8YV18RY86T3TjTyqiuDAo bGU+PHRhYmxlIHdpZHRoPScx RGSdQpKsfJatYC3oAr9zLKZt LWNv bGhtkLCnGoHhj0xhFLKcKRps NK2wyYuyU3BehNQ2XPKci4y6 Eq62H25pT9YkvSL+PGNvbCB3 aWR0 qI8jZmCiZiI6ZOjpW414CyNs kQKnZmnad8euf8gwaLy4VmR0 QWOvuyHpbEuhVMG1u3JnFg43 Y29s IHdpZHRoPSIxNSUiIHZhbGln xw1xvS4sQo6+WATkuXC1dZZ6 jN9bSkXjTnP2HKzqG444AeSc cCIv Hyngv3upz7tczQh4XuCrRMLu fvKazSghQLJ8t3DmQl57R0Ag eMdqa2GvKzb7qq23cJIrw8T9 bGU9 I9VdXKIsxjkwtVAtiDceJC2v ZBSdukqsSNIhsB1nIRTwZ7x6 PeViOcU4EQnaY2KumrS1QMLh cHQg AIdbNPM8H43lr1S1QTOdKLAj DTE5xHK2rG9dbDycyydplBTj yHdjgpUsoRphMWuaEHqtB088 IHRv aFncRXGiqA7vESIskXLugMkr XB9kGQYtlrhgXm8RDCuDCCwx Sl7ZHJigaKM+IVUdLZN8qDru PSdw VPUwgI8uOCAzZ7d8HdYvOtU7 EJwaV1XhZMBrkcwtBa52uR2m MeYmZsJ5QOroX6ClgsP3EMWu cHQg AUmcPUW2P63ar2W5XQJkAOIw CAI8fUT9pQ5vtFjygtdxdIMk lVsyojIezJwqKWqvTIjiQ228 IHRv bDllYuCmFtM2ZvF1NVX9T0Rl Frm7OGYulMksDH8ifFDtCSet Zj3gyKkvbNjdTT7qAAKgtwoc YWRk oV8pICVspUAuzJsqAM8oISMz sjwdv954SrHzPXQ6LSYnkYPu X7OuiL9qOiIeUDMeJMAiA1Uy eHQt FEelF069DQroSgU9ZNIfcwZi X9CjVMFlpJjmElG0d6T1He03 NiBZZWFyczwvdGQ+PHRkIHN0 eWxl LYxmEMSvgQ8eVWYbY1i0MbBx OkN3VRumQ3ErJBGlsymjDe00 mT9lXvJvVbD5OQxzK8HvzrF1 IDEw rWVqLIzkKIK0Z91ea4J5SOZg MRRlJUM5rAC0bL4zkRkdqbwc bGVmdDsgdmVydGljYWwtYWxp Z246 IHRvcDsnPkZlbWFsZTwvdGQ+ IAJeOOU8dBffITfzKOMoqF9g YVLwR3w2DhLiFcH0DIoeH6Yn ZGRp wpmaYc51iF6pYsPpLqV7JNgm A5FfgoB3SDVgeJZzXGulESC7 N94cp4W8KIEjOZCrJWV8pTB5 dC1h bGlnbjogbGVmdDsgdmVydGlj QHftNQvzK957WADruCwoOw2n k0ZfrtQ0xL2xUI92CX77U1Is Pjwv dGFibGU+PHRhYmxlIHdpZHRo HTyqHABxGhIdpAhkXK5rUg1m OWVlSYThiKdgnDMlOcRqh6df YXBz PPywKJ6jgKywW4IbuTO7UVPt j5u6Xp33Q37qM0SgvRU+PGNv hTF5gHS9qX1iBsJcOmI3QIht Z249 MyUzpMXzBwyao7bzk1ynyQd2 JjMrYLKkxjPyuFeqUWE4s0Ge Kr92H46lTJgvRVOeTEQmSUZw IHZh eWdshq2xcL1yOy9+PGNvbCB3 bSW8pO2uAaVfEhJ3CTvkK192 WoNuoHYrNhqhU34cC7TdnLJ+ PHRy Jcf1HUXfzViiPM5acHTtYAxh Uf9qMGF7QiNwOpAeRHsrK6Vz IZVafzsaqjnogZQ7ZREfAAHf aW47 Pz9qmGynFt4jJWDnHNU4XPIn lIPsQ8HxrA7cLlNlTVTxWHMq Z9ZknAKeOTveP716EUmxStS9 IHZl qmNdK6AmVFDniRfwWnG0d6G3 Jo4ZfNobuHZiRV5gNwUtTAa1 U1CsAyz7AFUeaHhbNH3nrDNw ZGlu Ba8jaNkvfZsjKP6oVKKdnyyp w606FdKlo3dtCVChzMUdWDss YKR5B89qg2N1XPLtJXWzPRF8 dGV4 gS3tiWatkqshdSJmrGmqrtDi bElaGGmjODogE216CERzxLzr SlUBEne5U4NhOqo3ORPehCpn ZT0n oSMsRItlIu1tnXofpNbjUI7z IIGcxxzpx230QbGzf4cfSUYm uBNuUMdaQBS1H88ft7V7JZWh MDAw LND3jWG3mV0ilBzfkeeccSUz kMtwjuEjuXkwPIazIHyuR451 OLAthFtgNm3GMoa1G6AyIgo8 ZCBz jAgbNO5bmDYnULyoMq5hbEmf uUbiIZ2jPDCidypbs841ZyLy z3rwAAZvcISrYMjdLTE6S59m b3I6 BQDiEZGvSKW4yRV3kD4lsGvu bjogbGVmdDsgdmVydGljYWwt OSqvJ180QPHexWqsQlGoaSYs Ojwv dGQ+IP02va47W6OuSfxtJca3 QVKhCJM4kRI0sB1iXPKsKCww j4S2wXX7X7XhkaBduz1wq9sr YXBz ZTog (more content not included)... Normal [facility] IntraOperative Documentson 0 09-27-2021 IntraOperative Documents [id number]#1.00CD: 127 Normal [facility] Main OR Intraoperative Recor don 09-22-2021 Main OR Intraoperative Record IntraOp Document Type FT Summary Primary Physician: Cas Severino DO Finalized Date/Time: 09/22/21 09:12:48 Pt. Name: ANNE KEMP/Sex: 1955 Female Med Rec #: [id number] Physician: Cas Severino DO Financial #: [id number] Pt. Type: O Room/Bed: N317/01 Admit/Disch: 09/19/21 08:30:31 - 09/21/21 12:20:00 Institution: Case Times FT Entry 1 Patient Times In Room 09/19/21 10:58:00 Out Room 09/19/21 13:18:00 Procedure Times Start 09/19/21 11:38:00 Stop 09/19/21 13:13:00 Anesthesia Times Start 09/19/21 10:58:00 Stop 09/19/21 13:18:00 Block Timeout w/ 09/19/21 10:05:00 Anesthesia Last Modified By: Gila Armas RN 09/19/21 13:18:18 General Comments: Block info: Kody Kingston CRNA RN assisting. [id number], HR 64, SpO2 98% RA. Chris RN 09/22/21 Chart opened to review and send charges LRoth CSFA Case Attendance FT Entry 1 Entry 2 Entry 3 Case Attendee Luis M Delgado CRNA, DO, David A Roth CST, Liane E Role Performed PROFESSOR OF MANAGEMENT Surgeon - Primary RUG SHAMPOOER/SA Time In 09/19/21 10:58:00 09/19/21 10:58:00 09/19/21 10:58:00 Time Out 09/19/21 13:18:00 09/19/21 13:18:00 09/19/21 13:18:00 Procedure KNEE TOTAL ARTHROPLASTY KNEE TOTAL ARTHROPLASTY KNEE TOTAL ARTHROPLASTY REVISION(Left) REVISION(Left) REVISION(Left) Comments Last Modified By: Lizet Armas CST RN, Gila Dover RN 09/22/21 09:09:17 09/19/21 13:24:05 09/19/21 13:24:05 Entry 4 Entry 5 Entry 6 Case Attendee Jaleesa RUG SHAMPOOER, José Miguel Cristobal RUG SHAMPOOER, Renetta Armas RNGila Role Performed Scrub - Primary Staff - Other Medical Staff Credentialing Coordinator - Primary Time In 09/19/21 10:58:00 09/19/21 10:58:00 09/19/21 10:58:00 Time Out 09/19/21 13:18:00 09/19/21 13:18:00 09/19/21 13:18:00 Procedure KNEE TOTAL ARTHROPLASTY KNEE TOTAL ARTHROPLASTY KNEE TOTAL ARTHROPLASTY REVISION(Left) REVISION(Left) REVISION(Left) Comments Second scrub Last Modified By: Gila Armas RN, RN, Julie E Roth RN, Julie E 09/19/21 13:24:05 09/19/21 13:24:05 09/19/21 13:24:05 Entry 7 Case Attendee Renetta Ward RN Role Performed Staff - Other Time In 09/19/21 10:58:00 Time Out 09/19/21 13:18:00 Procedure KNEE TOTAL ARTHROPLASTY REVISION(Left) Comments OSC/ Block RN Last Modified By: Gila Armas RN 09/19/21 13:24:05 General Comments: Vijay Peralta, Fany Reps. Chris ROCHAmaterials and corrosion engineer Protocols FT Pre-Care Text: Implements protective measures [...] M Delgado CRNA, Given Participants Pocos DO, Cas Joe, Pawel RUG SHAMPOOER, Lizet Hebert, Jaleesa RUG SHAMPOOER, José Miguel WPawel RN, Julie E, McClain CST, Renetta Joe Time Out Complete 09/19/21 11:32:00 Outcomes Met? Yes Last Modified By: Gila Armas RN 09/19/21 11:43:57 Post-Care Text: The patient is free from signs and symptoms of injury caused by extraneous objects General Comments: Reps present for time out. 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 Normal [facility] Auto Diffon 09-21-2021 Basophils/100 WBC (Bld) 0.0 % Normal 0.0-2.0 [facility] Comment on above: Order Comment: Order Added by Discern Expert. Performed By: #### 2 462582, 9646512, 0267255, 4248172, 5287316, 86208829 ####[facility] [address] [place] [address] Basophils/Leukocytes Auto (Bld) [Pure # fraction] 0.0 E9/L Normal 0.0-0.2 [facility] Comment on above: Order Comment: Order Added by Discern Expert. Performed By: #### 2 227993, 2346063, 2720329, 0172548, 3921494, 03442482 ####[facility] [address] [place] [address] Eosinophils/100 WBC (Bld) 0.2 % Normal 0.0-8.0 [facility] Comment on above: Order Comment: Order Added by Discern Expert. Performed By: #### 2 709021, 7027814, 4805810, 3117989, 6911631, 31704520 ####[address] [address] Eosinophils/Leukocyt es Auto (Bld) [Pure # fraction] 0.0 E9/L Normal 0.0-0.5 [facility] Comment on above: Order Comment: Order Added by Discern Expert. Performed By: #### 2 454810, 1568745, 9242051, 0317216, 9967972, 02293442 ####[address] [address] Lymphocytes/100 WBC (Bld) 7.3 % Low 14.0-50.0 [facility] Comment on above: Order Comment: Order Added by Discern Expert. Performed By: #### 2 311212, 6420161, 8912142, 6942347, 7551060, 14833797 ####[address] [address] Lymphocytes/Leukocyt es Auto (Bld) [Pure # fraction] 1.0 E9/L Normal 1.0-4.0 [facility] Comment on above: Order Comment: Order Added by Discern Expert. Performed By: #### 2 513045, 0286466, 8928362, 7008036, 1471987, 83202135 ####[address] [address] Monocytes/100 WBC (Bld) 11.0 % Normal 4.0-14.0 [facility] Comment on above: Order Comment: Order Added by Discern Expert. Performed By: #### 2 434740, 3929608, 0371431, 2150948, 2198689, 32648665 ####[address] [place] [address] Monocytes/Leukocytes Auto (Bld) [Pure # fraction] 1.5 E9/L High 0.2-1.0 [facility] Comment on above: Order Comment: Order Added by Discern Expert. Performed By: #### 2 891229, 0750186, 7315676, 3300265, 9077516, 62925211 ####[facility] [address] [place] [address] Neutrophils/100 WBC (Bld) 81.5 % High 36.0-75.0 [facility] Comment on above: Order Comment: Order Added by Discern Expert. Performed By: #### 2 712620, 0009468, 5367838, 7789358, 9669581, 40913628 ####[facility] [address] [place] [address] Neutrophils/Leukocyt es Auto (Bld) [Pure # fraction] 10.8 E9/L High 2.0-7.5 [facility] Comment on above: Order Comment: Order Added by Discern Expert. Performed By: #### 2 518737, 9327055, 3740174, 8024075, 6670121, 66484283 ####[address] [place] [address] BUNon 09-21-2021 Urea nitrogen [Mass/Vol] 7 mg/dL Normal 5-21 [facility] Comment on above: Performed By: #### 2 643618, 1482510, 3468764, 9484025, 5658253, 83140993 ####[address] [place] [address] CBC w/ Auto Diffon Erythrocyte distribution width (RBC) [Ratio] 13.4 % Normal 10.9-14.2 [facility] Comment on above: Performed By: #### 2 772794, 2495682, 7059246, 6971900, 8401988, 22064217 ####[address] [place] [address] Hematocrit (Bld) [Volume fraction] 34.6 % Normal 34.0-46.0 [facility] Comment on above: Performed By: #### 2 590223, 1864280, 5054384, 8061613, 7270884, 06455198 ####[address] [place] [address] Hemoglobin (Bld) [Mass/Vol] 11.9 g/dL Low 12.0-16.0 [facility] Comment on above: Performed By: #### 2 581498, 9022288, 3465984, 9750593, 0691416, 84934168 ####[facility] [address] [place] [address] MCH (RBC) [Entitic mass] 30.7 pg Normal 27.0-34.0 [facility] Comment on above: Performed By: #### 2 785932, 2975733, 0121729, 8536813, 8816176, 70750064 ####[address] [place] [address] MCHC (RBC) [Mass/Vol] 34.5 g/dL Normal 31.4-36.0 [facility] Comment on above: Performed By: #### 2 781712, 5894931, 6236324, 1044327, 4384772, 41485741 ####[address] [address] MCV (RBC) [Entitic vol] 88.9 fL Normal 80.0-100.0 [facility] Comment on above: Performed By: #### 2 050666, 6626818, 7821518, 0182003, 3956569, 42206457 ####[address] [address] Platelet mean volume (Bld) [Entitic vol] 6.9 fL Normal 6.4-10.8 [facility] Comment on above: Performed By: #### 2 405960, 8585612, 1764979, 3559349, 4395307, 06940154 ####[address] [address] Platelets (Bld) [#/Vol] 337.0 E9/L Normal 150.0-500.0 [facility] Comment on above: Performed By: #### 2 701310, 7133951, 5348507, 0350694, 3567831, 60842906 ####[address] [place] [address] RBC (Bld) [#/Vol] 3.9 E12/L Low 4.3-5.9 [facility] Comment on above: Performed By: #### 2 361427, 8588871, 7436933, 1023901, 0595324, 56927455 ####[facility] [address] [place] [address] WBC corrected for nucl RBC Auto (Bld) [#/Vol] 13.3 E9/L High 4.0-11.0 [facility] Comment on above: Performed By: #### 2 831671, 3318312, 5995586, 3702243, 0886353, 59050871 ####[facility] [address] [place] [address] CHEMISTRYOrdered By: SYSTEM SYSTEM on 09-21-2021 Anion gap [Moles/Vol] 15 mmol/L Normal 6 - 16 mEq/L [facility] [place]isol Chloride [Moles/Vol] 95 mmol/L Low 101 - 1 11 mmol/L FT Remisol CO2 [Moles/Vol] 25 mmol/L Normal 21 - 31 mmol/L FT Remisol Creatinine [Mass/Vol] 0.6 mg/dL Normal 0.5 - 1.3 mg/dL [facility] [place] Remisol GFR/1.73 sq M.predicted among blacks MDRD (S/P/Bld) [Vol rate/Area] mL/min/1.73 m2 Normal >=59mL/min/ 1.73 m2 [facility] [place] Chem S GFR/1.73 sq M.predicted among non-blacks MDRD (S/P/Bld) [Vol rate/Area] mL/min/1.73 m2 Normal >=59mL/min/ 1.73 m2 [facility] [place] Chem S Potassium [Moles/Vol] 4.1 mmol/L Normal 3.5 - 5.3 mmol/L FT Remisol Sodium [Moles/Vol] 131 mmol/L Low 135 - 145 mmol/L FT Remisol Urea nitrogen [Mass/Vol] 7 mg/dL Normal 5 - 21 mg/dL [facility] [place] Remisol Creatinineon 09-21-2021 Creatinine [Mass/Vol] 0.6 mg/dL Normal 0.5-1.3 [facility] Comment on above: Performed By: #### 2 146760, 1198488, 0496612, 2094872, 2994659, 41058932 ####[facility] [address] [facility] [place] [address] Discharge Instructionson Discharge Instructions [id number]: 127 Normal [facility] Discharge Note-Nursingon Discharge Note-Nursing ANNE KEMP :1955 [...] When: 10/18/2021 03:00 PM EDT Where: [address] [place] [address]- Business (1) Follow Up with YARITZA MUELLER When: In 0 days Where: [address] [place] [address] [id number] Business (1) Medications What How Much When Instructions Next Dose Changed metoprolol (Lopressor 25 mg oral tablet) 1 Tablets By Mouth 2 times a day 09/21 @ 9 PM Unchanged ascorbic acid (Vitamin C 1000 mg oral tablet) 1 Tablets By Mouth Every day 09/22 @ AM Unchanged aspirin (Aspirin 81 mg Tab-EC) 1 Tablets By Mouth Twice a day (after meals) Pickup at [address] NEEDED Unchanged cannabidiol By Mouth Every day 09/22 @ AM Unchanged cholecalciferol (Vitamin D 1000 intl units (25 mcg) Tab) 1 Tablets By Mouth Every day 09/22 AM Unchanged docusate (Colace 100 mg Cap) 1 Capsules By Mouth 2 times a day as needed for for constipation Pickup at [address] Unchanged hydroxychloroquine (hydroxychloroquine 200 mg Tab) 1 Tablets By Mouth Every day 09/22 AM Unchanged lamotrigine (lamotrigine 200 mg Tab) 1 Tablets By Mouth 2 times a day 09/21 @ PM Unchanged magnesium hydroxide (magnesium hydroxide 8% Oral Susp 30 mL) 30 Milliliter By Mouth 2 times a day as needed for Constipation NEEDED Unchanged multivitamin (Vitamin B Complex oral capsule) 1 Capsules By Mouth Every day 09/22 @ AM Unchanged Non-Formulary Medication (ashwaganda/ dev root) By Mouth Every day 09/22 @ AM Unchanged omega-3 polyunsaturated fatty acids (Fish Oil) 1,000 Milligram By Mouth Every day 09/22 AM Unchanged oxycodone (oxyCODONE 5 mg Tab) 1 Tablets By Mouth Every 6 hours 1-2 po q4-6 hrs prn pain Dx: M17.12, Z96.652 Duration: 7days Disregard si po q6hr prn pain Pickup at [address] NEEDED Unchanged quetiapine (SEROquel 25 mg Tab) 09/22 @ 9 PM Unchanged Turmeric (turmeric 500 mg oral capsule) 1 Capsules By Mouth Every day 09/22 @ 9 AM Unchanged venlafaxine (venlafaxine 150 mg Cap-ER) 1 Capsules By Mouth Every day 09/22 @ 9 AM Pharmacy Information [address]: [address] [place] [address] [phone] Test Results CBC BMP WBC: 13.3 E9/L [...] POSTERIOR STABIL (more content not included)... Normal [facility] HEMATOLOGYOrdered By: SYSTEM SYSTEM on 09-21-2021 Basophils/100 [...] 3.9 E12/L Low 4.3 - 5.9 E12/L FT HemeAutoSS WBC corrected for nucl RBC Auto (Bld) [#/Vol] 13.3 E9/L High 4.0 - 11.0 E9/L FT HemeAutoSS Interdisciplinary Note - Nick e Manageron 09-21-2021 Interdisciplinary Note - City Planning Teacher CRM to discuss DC plans with patient. [...] her FWW is present. CRM following. Normal [facility] Comment on above: Result Comment: Elec tronically Signed By: Payton Ordaz\.br\Date and Time Signed: 09/21/21 09:39 EDT Lylidiaon 09-21-2021 Anion gap [Moles/Vol] 15 mmol/L Normal 6-16 [facility] Comment on above: Performed By: #### 2 099859, 0722886, 3266484, 3787957, 0010394, 06791505 ####[facility] [address] [place] [address] Chloride [Moles/Vol] 95 mmol/L Low 101-111 [facility] Comment on above: Performed By: #### 2 425697, 6201273, 7681063, 8535242, 4605858, 85324599 ####[facility] [address] [place] [address] CO2 [Moles/Vol] 25 mmol/L Normal 21-31 [facility] Comment on above: Performed By: #### 2 545821, 7865772, 3212107, 2556028, 3466886, 36842884 ####[facility] [address] [place] [address] Potassium [Moles/Vol] 4.1 mmol/L Normal 3.5-5.3 [facility] Comment on above: Performed By: #### 2 627384, 8716638, 7542505, 3970553, 7826405, 78336269 ####[facility] [address] [place] [address] Sodium [Moles/Vol] 131 mmol/L Low 135-145 [facility] Comment on above: Performed By: #### 2 237480, 1425663, 4967725, 0286223, 1142662, 21581681 ####[address] [place] [address] Operative Reporton Operative Report SURGERY DATE: 2021 TERRITORY DEVELOPMENT MANAGER: Lizet Armas, Certified Tube Skiver PREOPERATIVE DIAGNOSIS: Failed left knee medial unicompartmental [...] is prep (more content not included)... Normal [facility] Comment on above: Result Comment: Elec tronically Signed By: Cas Severino DO\tanesha\Date and Time Signed: 09/21/21 06:46 EDT Progress [...] made to ensure accuracy, however, inadvertently computerized bark press operator mistakes may be present. Subjective She states [...] Lymph Auto: 7.3 % Low (09/21/21 04:41:00) [place] Auto: 11 % (09/21/21 04:41:00) Eos Auto: 0.2 % (09/21/21 04:41:00) Basophil Auto: 0 % (09/21/21 04:41:00) Neutro Absolute: 10.8 E9/L High (09/21/21 04:41:00) Lymph Absolute: 1 E9/L (09/21/21 04:41:00) [place] Absolute: 1.5 E9/L High (09/21/21 04:41:00) Eos Absolute: 0 E9/L (09/21/21 04:41:00) Basophil Absol (more content not included)... Normal [facility] Comment on above: Result Comment: Elec tronically Signed By: Ashlyn PETERSON\.br\Date and Time Signed: 09/21/21 09:03 EDT\.br\Electronically Co-Signed By: Brijesh BARRETT MD\.br\Date and Time Co-Signed: 09/21/21 09:52 EDT eGFRon 09-21-2021 GFR/1.73 sq M.predicted among blacks MDRD (S/P/Bld) [Vol rate/Area] mL/min/{1.73_m2} Normal >=59 [facility] Comment on above: Order Comment: Order added by Discern Expert. Result Comment: eGFR is race adjusted. AA=. Performed By: #### 2 242947, 1734225, 4997543, 5368319, 2509002, 68466896 ####[facility] [address] [place] [address] GFR/1.73 sq M.predicted among non-blacks MDRD (S/P/Bld) [Vol rate/Area] mL/min/{1.73_m2} Normal >=59 [facility] Comment on above: Order Comment: Order added by Discern Expert. Result Comment: Sales Support Assistant josesito kidney disease could be indicated at eGFR's of less than 60 mL/min/1.73m2. Kidney failure is indicated at less than 15 mL/min/1.73m2. Performed By: #### 2 012848, 4600723, 0146527, 5283816, 0772878, 40208736 ####[facility] [address] [place] [address] Auto Diffon 09-20-2021 Basophils/100 WBC (Bld) 0.2 % Normal 0.0-2.0 [facility] Comment on above: Order Comment: Order Added by Discern Expert. Performed By: #### 2 682581, 0536475, 0037079, 28127854, 7027564, 7936275 ####[facility] [address] [place] [address] Basophils/Leukocytes Auto (Bld) [Pure # fraction] 0.0 E9/L Normal 0.0-0.2 [facility] Comment on above: Order Comment: Order Added by Discern Expert. Performed By: #### 2 388121, 2086991, 5574258, 81885362, 5387597, 9796987 ####[facility] [address] [place] [address] Eosinophils/100 WBC (Bld) 0.2 % Normal 0.0-8.0 [facility] Comment on above: Order Comment: Order Added by Discern Expert. Performed By: #### 2 563585, 2913399, 5395156, 02978617, 7106441, 1238066 ####[facility] [address] [place] [address] Eosinophils/Leukocyt es Auto (Bld) [Pure # fraction] 0.0 E9/L Normal 0.0-0.5 [facility] Comment on above: Order Comment: Order Added by Discern Expert. Performed By: #### 2 004347, 6666129, 2115809, 39352052, 7425492, 9782972 ####[address] [place] [address] Lymphocytes/100 WBC (Bld) 15.6 % Normal 14.0-50.0 [facility] Comment on above: Order Comment: Order Added by Discern Expert. Performed By: #### 2 580857, 6252701, 2027709, 51768766, 5897001, 4762298 ####[address] [place] [address] Lymphocytes/Leukocyt es Auto (Bld) [Pure # fraction] 1.4 E9/L Normal 1.0-4.0 [facility] Comment on above: Order Comment: Order Added by Discern Expert. Performed By: #### 2 873493, 2091995, 4297109, 35338094, 7373893, 9870676 ####[address] [address] Monocytes/100 WBC (Bld) 12.8 % Normal 4.0-14.0 [facility] Comment on above: Order Comment: Order Added by Discern Expert. Performed By: #### 2 866936, 5262123, 4356591, 62494147, 0030932, 5328666 ####[address] [place] [address] Monocytes/Leukocytes Auto (Bld) [Pure # fraction] 1.1 E9/L High 0.2-1.0 [facility] Comment on above: Order Comment: Order Added by Discern Expert. Performed By: #### 2 058763, 7796540, 0575808, 62960244, 1825362, 9899468 ####[address] [place] [address] Neutrophils/100 WBC (Bld) 71.2 % Normal 36.0-75.0 [facility] Comment on above: Order Comment: Order Added by Discern Expert. Performed By: #### 2 125671, 4205826, 0630720, 29004165, 5080139, 9303497 ####[address] [place] [address] Neutrophils/Leukocyt es Auto (Bld) [Pure # fraction] 6.4 E9/L Normal 2.0-7.5 [facility] Comment on above: Order Comment: Order Added by Discern Expert. Performed By: #### 2 030592, 5768705, 7527770, 91856036, 9431765, 3174587 ####[facility] [address] [place] [address] BUNon 09-20-2021 Urea nitrogen [Mass/Vol] 9 mg/dL Normal 5-21 [facility] Comment on above: Performed By: #### 2 447631, 2244583, 1585550, 37150156, 9780444, 6774935 ####[facility] [address] [place] [address] Blood Bank Slipon 09-20-2021 Blood Bank Slip [phone] [id number]: 127 Normal [facility] CBC w/ Auto Diffon Erythrocyte distribution width (RBC) [Ratio] 13.5 % Normal 10.9-14.2 [facility] Comment on above: Performed By: #### 2 973310, 9812958, 2063827, 28519446, 2643095, 4228401 ####[facility] [address] [place] [address] Hematocrit (Bld) [Volume fraction] 29.0 % Low 34.0-46.0 [facility] Comment on above: Performed By: #### 2 482107, 2566270, 5599926, 75041862, 0241071, 2680423 ####[facility] [address] [place] [address] Hemoglobin (Bld) [Mass/Vol] 10.1 g/dL Low 12.0-16.0 [facility] Comment on above: Performed By: #### 2 595144, 2572782, 7624969, 15097058, 7864505, 2955666 ####[address] [address] MCH (RBC) [Entitic mass] 31.3 pg Normal 27.0-34.0 [facility] Comment on above: Performed By: #### 2 637087, 4146204, 5991575, 97870249, 5325474, 5403563 ####[address] [address] MCHC (RBC) [Mass/Vol] 34.8 g/dL Normal 31.4-36.0 [facility] Comment on above: Performed By: #### 2 918355, 4340027, 8779995, 60546040, 4542851, 4633933 ####[address] [address] MCV (RBC) [Entitic vol] 89.7 fL Normal 80.0-100.0 [facility] Comment on above: Performed By: #### 2 745588, 4592163, 1878251, 06257797, 8607610, 1811600 ####[address] [address] Platelet mean volume (Bld) [Entitic vol] 6.7 fL Normal 6.4-10.8 [facility] Comment on above: Performed By: #### 2 547852, 3735864, 6032554, 90622413, 4671223, 8862370 ####[address] [address] Platelets (Bld) [#/Vol] 294.0 E9/L Normal 150.0-500.0 [facility] Comment on above: Performed By: #### 2 786850, 1822679, 8788112, 13099347, 9328561, 8622874 ####[address] [address] RBC (Bld) [#/Vol] 3.2 E12/L Low 4.3-5.9 [facility] Comment on above: Performed By: #### 2 365727, 1691983, 5341878, 20585583, 5134264, 8885825 ####[facility] [address] [place] [address] WBC corrected for nucl RBC Auto (Bld) [#/Vol] 8.9 E9/L Normal 4.0-11.0 [facility] Comment on above: Performed By: #### 2 945890, 4961892, 6315775, 16012460, 3608766, 2776630 ####[facility] [address] [place] [address] CHEMISTRYOrdered By: SYSTEM SYSTEM on 09-20-2021 Anion gap [Moles/Vol] 8 mmol/L Normal 6 - 16 mEq/L FT Remisol Chloride [Moles/Vol] 106 mmol/L Normal 101 - 1 11 mmol/L FT Remisol CO2 [Moles/Vol] 28 mmol/L Normal 21 - 31 mmol/L FT Remisol Creatinine [Mass/Vol] 0.8 mg/dL Normal 0.5 - 1.3 mg/dL [facility] [place] [place] Remisol GFR/1.73 sq M.predicted among blacks MDRD (S/P/Bld) [Vol rate/Area] mL/min/1.73 m2 Normal >=59mL/min/ 1.73 m2 [facility] Chem S GFR/1.73 sq M.predicted among non-blacks MDRD (S/P/Bld) [Vol rate/Area] mL/min/1.73 m2 Normal >=59mL/min/ 1.73 m2 [facility] Chem S Potassium [Moles/Vol] 4.2 mmol/L Normal 3.5 - 5.3 mmol/L FT Remisol Sodium [Moles/Vol] 138 mmol/L Normal 135 - 145 mmol/L FT Remisol Urea nitrogen [Mass/Vol] 9 mg/dL Normal 5 - 21 mg/dL FT Remisol Consent for Anesthesiaon Consent for Anesthesia [id number]#1.00C D:127 Normal [facility] Creatinineon 09-20-2021 Creatinine [Mass/Vol] 0.8 mg/dL Normal 0.5-1.3 [facility] Comment on above: Performed By: #### 2 009851, 0942884, 6572564, 11644898, 0913478, 3111220 ####[facility] [address] [place] [address] HEMATOLOGYOrdered By: SYSTEM SYSTEM on 09-20-2021 Basophils/100 [...] 31.3 pg Normal 27.0 - 34.0 pg FT HemeAutoSS MCHC (RBC) [Mass/Vol] 34.8 g/dL Normal 31.4 - 36.0 gm/dL FT HemeAutoSS MCV (RBC) [Entitic vol] 89.7 fL Normal 80.0 - 100.0 fL FT HemeAutoSS Platelet mean volume (Bld) [Entitic vol] 6.7 fL Normal 6.4 - 10.8 fL FT HemeAutoSS Platelets (Bld) [#/Vol] 294.0 E9/L Normal 150.0 - 500.0 E9/L [facility] HemeAutoSS RBC (Bld) [#/Vol] 3.2 E12/L Low 4.3 - 5.9 E12/L FT HemeAutoSS WBC corrected for nucl RBC Auto (Bld) [#/Vol] 8.9 E9/L Normal 4.0 - 11.0 E9/L FT HemeAutoSS Interdisciplinary Note - Nick e Manageron 09-20-2021 Interdisciplinary Note - City Planning Teacher CRM to discuss DC plans with patient. [...] Patient had elevated BP, uncontrolled pain Normal [facility] Comment on above: Result Comment: Elec tronically [...] inpatient OT services at this time. Normal [facility] IntraOperative Documentson 0 09-20-2021 IntraOperative Documents [id number]#1.00C D:127 Normal [facility] IntraOperative Documents [id number]#1.00C D:127 Normal [facility] Lyteson 09-20-2021 Anion gap [Moles/Vol] 8 mmol/L Normal 6-16 [facility] Comment on above: Performed By: #### 2 792990, 1487346, 1063768, 76824755, 6605649, 1066164 ####[facility] [address] [place] [address] Chloride [Moles/Vol] 106 mmol/L Normal 101-111 [facility] Comment on above: Performed By: #### 2 896944, 5924253, 6383199, 77096468, 2780778, 0660477 ####[facility] [address] [place] [address] CO2 [Moles/Vol] 28 mmol/L Normal 21-31 [facility] Comment on above: Performed By: #### 2 674660, 8536155, 9985542, 50260939, 5702661, 0344297 ####[facility] [address] [place] [address] Potassium [Moles/Vol] 4.2 mmol/L Normal 3.5-5.3 [facility] Comment on above: Performed By: #### 2 117016, 3263677, 2622168, 27588124, 2402241, 2607543 ####[facility] [address] [place] [address] Sodium [Moles/Vol] 138 mmol/L Normal 135-145 [facility] Comment on above: Performed By: #### 2 090681, 3174180, 4368214, 42047338, 0693153, 2077534 ####[facility] [address] [place] [address] Operative Reporton Operative Report SURGERY DATE: 2021 [...] the proposed procedure. ALYSE Campuzano Dictated: 09/19/2021 [id number] Transcribed: 09/19/2021 [facility] Comment on above: Result Comment: Elec tronically Signed By: Luis M Delgado CRNA\.br\Date and Time Signed: 09/20/21 08:18 EDT Preoperative Documentson Preoperative Documents [id number]#1.00C D:127 Normal [facility] Preoperative Documents [id number]#1.00C D:127 Normal [facility] eGFRon 09-20-2021 GFR/1.73 sq M.predicted among blacks MDRD (S/P/Bld) [Vol rate/Area] mL/min/{1.73_m2} Normal >=59 [facility] Comment on above: Order Comment: Order added by Discern Expert. Result Comment: eGFR is race adjusted. AA=. Performed By: #### 2 905699, 5129945, 0698723, 29208783, 9523659, 6785396 ####[address] [address] GFR/1.73 sq M.predicted among non-blacks MDRD (S/P/Bld) [Vol rate/Area] mL/min/{1.73_m2} Normal >=59 [facility] Comment on above: Order Comment: Order added by Discern Expert. Result Comment: Sales Support Assistant josesito kidney disease could be indicated at eGFR's of less than 60 mL/min/1.73m2. Kidney failure is indicated at less than 15 mL/min/1.73m2. Performed By: #### 2 502212, 3006830, 8712884, 99402453, 5567664, 0245576 ####[address] [address] ABO/Rhon 09-19-2021 ABO/Rh Positive Invalid Interpretation Code [facility] Comment on above: Performed By: #### 1 9355785, 88250223, 33096724, 0978416 ####[address] [address] ABO/Rh History Checkon 09-19 ABO/Rh History Check Verified Hx Blood Type Normal [facility] Comment on above: Performed By: #### 1 5431085, 41401573, 36288589, 7868390 ####[address] [address] ABSCon 09-19-2021 ABSC Gel Interp Negative Normal [facility] Comment on above: Performed By: #### 1 0851638, 35120812, 00795263, 3455055 ####[address] [place] [address] BLOOD BANKOrdered By: Angelica ellis on 09-19-2021 ABO/Rh Interp Positive Invalid Interpretation Code [facility] BB Subsection ABSC Gel Interp Negative (09/19/21 9:00 AM) Normal [facility] BB Subsection Blood Bank ID#on 09-19-2021 BBID# [id number] Invalid Interpretation Code [facility] Comment on above: Performed By: #### 1 1740570, 38086592, 36983635, 4241687 ####[facility] [address] [place] [address] Coding Summary.on 09-19-2021 Coding Summary. CD:[id number]:[id number] Gh0b Ww+PGhlYWQ+JH8ZBVUcS29qb WRxxD4OO6rZDU7ODGDFSVFUY B0DEH7bzXF9ZVqcR9DfkbSm LvpjlDSnZL87OGk9GLN3yKlf VUrncY2ibBUqL7y9RiKfYV51 tQ13CNyaMKQvHxE0ApKnslol bWFy L2yyOkXwvPJnJla+PHRhYmxl IHdpZHRoPScxMDAlJyBzdHls EX9mHm0bPBBkAUMezUepjITo OiBj w4nkRXUlEYxdQN9fuNvtE7Nq rGR2KHDnw9e1Fq23iKQ+PHRk VZK4gVjiECvuk985VtYns8hy IDM3 nXPpSOsfVCO0W70ub5N1SWUl SIJaRYQ0xCD8mT5mrMasrjax H5HauCOgRwO6QQP1wQJwtJ6w bGln pcvggT4gJur+G14XVJ0FHCBL YC2UFrp4B7VtWirupTJ+PC90 MBCjSO05zAZqxHObe3bzhZf4 JzEw THYaEYI6iLgfQDvmj1TsKRBt Y60hqGLwx2D1OPUpwChkwELf DzCvtLA2kP2yGViebqjqt5jw dzsn Ceglj5jznn53hU69B41nVZvj FLDkNON8ITVzDFUsgJnpdq3g pO6gHh7+QWxpm5axl6fmxOv7 IjIw JENjztHajKhwDXL6p7HaRf88 A9TyuEpma7LcCdi6jw01jAMw v4B5oXV7OKheAEQvdM2uEPrs ZnQ6 GSMzXtQglI30xIOmOQjrGd6y gPvrzBjqCD8rXWOtaiamUHCz kC7nQBSxrNHynJhqZM8dOHMr bjtm v305BfOkHKF5ASXiyANyG0Gl oD3iJmDbELHrTEHzR6BwpEIh UKwsN996FBqjYzH5WECmslIy Y2Fs OQKfaHivDpI5k6E2Gw0Fs8Ir gctvXPE9CXzuDUR0OeNqOqOy VkN3I1HmRpw8MALkdEtePA4o J3Bh YFCaltozdgwhoCI0LAKnVOWh jA92nMXtWKftYl5aw4R5r450 XJMeUOPapX19Mx3yyEnaFVLx dCBU bD5zjpnru2tsmodmIePfTZNs KBm9TKc4DLFgkWwvDhFpJEU7 UfF6TMB8oMCisY9oxLsoppgx dG9w Oyc+D82jxQ1mWMJ0AFZ1cfbo JOOspkMjII43SA41W4IpWdkc dGFibGU+HOGwraNfuUafYR9o YmFj z7lkg4PbFUeiW6NbBRZhXMkr Kqb5UACpINP4aCN1dW0bVVCo WPbje2P3lHW0N3MphhKwjb1c b2xs BEPiTLasA80vwESag4T5KTVp bRZ8DSXfkZmfYyWvbA48Siv+ TJArvHqag1LsTffmo8xdw9ew dGg9 LnRzCMRidpZhpPrrQTS2v7Jp Rl79E32jXGxyZZAhOUDeWLPc RLIwmHlhkg8voM9gDt9+PGNv bCB3 iGT8iQ1vILAiKnW7GYahB348 AiZrnLWmKexwz9otg3cseGo9 StIwRUPefiYetLvqLUH5o0Gb Lz48 E64lIAksIBFlFNIfIZTtYUJo mTffrh6xiS7mGf3+UR3km3yc dg77rD92gLL+VWInZIQ3oYtg PSdw WSDqlL0xPBswApT4WCGsXiWu sH03rMKtIKrsVo1wzQrhhXzw KX0bDWDpweeaf629YsEju3me IDEw fEHnDMiaMFF0I13tr4S8RZHt MIFdGBU4jGE8yV3nkMpornye bGVmdDsgdmVydGljYWwtYWxp Z246 IHRvcDsnPlBhdGllbnQgTmFt FWx2A6KiEbk6LEIcbDssCZ7n aORoETqnEg0sjAvlgOedYS1x NTBp hgsud757UfNgj5fyUFPpfVNq QNbxILG9L00sc7B7UGUjIZMu OIP8mFD1cE7hrIxlnkimaFEl dDsg naWjtSxnVOfeFGeyD122EWGk bMoiDkXznzZfEJPjrRD0UX88 LQ07nALtf7L6uOE1K4FiZXEb bmct mrvejYD1YAUsUSYgoX06Bo3y oSfdAr2hXVHgAYE7DXRwdZJx R1TvwY5wVfMaQGQtNBCzB9Pc eHQt GNjaN564IXooYrB6OICuzhFp E2LlQEEodYuvXdW3i7C4So9E W8I0SA42BL89rEZhd1Q8iPM2 J3Bh KBEpsdkuprdinRT4MNBtVWAi cL40Ue6lcObnIn8dXSXfXBX5 BFHadOGsI3FmxZ1sZiJlDXJk MDAw A3CqfTZtZIwxI459VVhsLjX8 GWZieqBrI4GuJZCyeMxiQsO1 i1E4Dw2KCFy2GT18FU22kSJd c3R5 oLP8O4RkNCOpleauonskfRP0 EKQmIUFlsT71Dy9tnGvzAg7i BUOeRAT7QWHbyAJnE3KgiJ8h OiAj FVEhCQRpU9BbeHXeTBwxS309 ICvhYyP5WAKpxpKeT4JqEKWu xXrnTdS4r2R2Zo8FCIYbRU43 IFR5 hVC4OM25XY86A4IqMzxplUJu bGU+PHRhYmxlIHdpZHRoPScx HERoQvCqgXjhJA9uRr6zKGEv LWNv yHflfMAbTmNqq4wpKZYdUIgs RM4brQpsS0RceSA4FWDkj9l9 Xd35S99qG7WrwWL+PGNvbCB3 aWR0 jN7jVdUdVzP3WRauM030XrGn vGNgMknes5rjr5yjnAs1AdZ6 SDKvsuLgkYzrZHO3j3MlLm43 Y29s IHdpZHRoPSIxNSUiIHZhbGln ji9utG2hBn6+EGYxlOZ1kAR8 dZ2rYyTqRfC7BBurV755CfWc cCIv Gfxgc4zjw0eakKn4KdYpEGDp qiMukOvgBGC8w6VpHq86T9Oo xKxjh8GsYem2ed01hCDfq4W3 bGU9 O6OwYUVhpcbpxGPvkXgvAO8p UJSgihjlIENjfM6nETXkQ8b9 KyEzTyJ9PAtyA9IpiwQ0YNBd cHQg BVqzGTY7T83zu1X5ENWeKMNv UKM5vKD2mY6ijXbebaftuNWc yRcxihDzaUzeZQgfYTpfO407 IHRv hGslTMIhsI4dQXIhgXJqaBwe BA2oCAXqiidpOy9GVSiZMMow Zs0NOLiznUN+BDWqXFK6aAxb PSdw LEIkzR6lLHOzP6a7ZcMwCzF6 KTstL0JqNLSedfjdBt30yX6m WbUpKyG7JHtiX9DvbpH7JLRj cHQg EHihJVH3N57og8X0FXXgVREe UDJ6iYE2cW7wmDydrdtusTGn mTljnaImgSciBMmqHOvnQ849 IHRv kCtvPzEqJgN7SpN1MIA2D2Ki Zxr6RGXwkAvqPZ7mkFHqKTnh Va3bmLutdDfrAS7aJCRyowos YWRk oF4bOSPhoWJyfOrsXY2mYATv zvdix581CzWvFEA6RNQltEBj S0ZwvD3kSiZoRKYbMFUlC1Fy eHQt LMxcA669YZhtHiG7UACqieZj O2EsUMSgjBsxSsY9r5C3My87 NiBZZWFyczwvdGQ+PHRkIHN0 eWxl YUtfEVPitK2mSBZbT2p9FyWm VmN9SOscW4GoGTXeqlszJa57 eU3gCaHdQaG3MGovH8WjwyZ2 IDEw yIUqOYboPTS2Z20mb9J6XFLb YTOzCVZ3eNK1gT8ntKgxknch bGVmdDsgdmVydGljYWwtYWxp Z246 IHRvcDsnPkZlbWFsZTwvdGQ+ NUPyAYY4mQaaFOpuTONvoH9u ZJGiM5u4PvWbHeH2WImrI3Vb ZGRp omujZb82lG9yKqSaLoB0ZWtp V4QletM1MJNlpRVlONvsMUG8 R23vo5F4SDNoFPOgDQM3pYE7 dC1h bGlnbjogbGVmdDsgdmVydGlj AZjqDGqoW812CXMfbIobNt98 sLAsrNtjhwE7N4TrOqrsgUD+ PC90 ZJGaSF83zGDwkCSpo7xbnGu5 GsGaYLHvYFP9sUfqTTckc3Oc LNWwA43kbNIry7N9IGQgsKgo cHNl VpEnkOT5aA9gCCpuhjucl7bm wvhpWdoqr4zuva61dJ76M81p IHdpZHRoPSIzMCUiIHZhbGln bj0i rV3lHm3+NEIuhJP0cZZ9uB6q ZlBeDuJ8BPqvE677KkCibWAd Lpfjk8egl3mpxEy5GpHfDPRi dmFs yDchTRC6f1IpLo93N54tENzd LQGoAUAtHGPuKUOpnXsyrw7m gL7aFb2+GE8km9rwja92kD40 dHI+ WKErHQF2mHlzXYueIMCvbF4i ZGdsCcP9OPYkZoZseU90zLRy OHoyHc6hjNoaeVgmKR8qOPUk bjtm g787EuVcv8ooVBVjoITkZGrd ORS5Y93tr6A2CUFrDXRhBKW4 dIH9jX7xvLmhtsydqPMpuTvc dmVy fLknNWxiXUxhZ162ATCspEmb SiGdiTMjD8ijaeIUXV0nPigq dGQ+ZKUmLND0lXriCMpoRHKf aW5n HSVhA3m6QmLoRoE0BAtpP4Dr pdB0RJVxwCHyEYJszNHZaZ7z ztuqh5qdrgofOxQyGAHuKAc2 ZXh0 KWVohVqwMmAfOOD7HrQ3VJQ2 bRFajE8tuRbjtvlriH1iYod+ RklOOjwvdGQ+ZHXvZVU6sEnp PSdw RGSfuG4jOWWpP3d2XgPrFdH9 LXsdT4CmvkW2EAGxtBBoSLTb cIGMzA9ywkydl7tlsjkySxVv MDAw ANv8GUr8XYLofSxuMuGkPEV9 UiG5TQA6fJJwtB8roLncakip lW4eSvz+TVJOOjwvdGQ+PHRk IHN0 rUclNLdwALWxhT4iQHUwH2i8 UeHcHyK3YXudT1SwckS3EAPy xCZlNXBliBYNgU7ngbsdq0pf cjog UaFjXLFhQOp8TAm3KLAdkJgb MmYgGKR8EvX0XQD1eOFfzS0l fDdxsmmvkG1sCwh+QKL7MLQ5 PC90 WS59X6ZkLbfwlVErkBV+PHRh YmxlIHdpZHRoPScxMDAlJyBz lWncGO2tPm4fSRIsEZEywIeo cHNl OiBj (more content not included)... [facility] Consent for Treatmenton 09-08 Consent for Treatment [id number]#1.00CD: 127 [facility] H&P Updateon 09-19-2021 H&P Update [id number]#1.00CD: 127 [facility] Interdisciplinary Note - Nick e Manageron 09-19-2021 Interdisciplinary Note - City Planning Teacher CRM to discuss DC plans with patient. [...] here. CRM called and left message on [employer] line as well as sent email to [employer] for the script for the walker [place] [facility] [place]. Plan is for DC 4.13.22 with [facility] program. CRM following [facility] Comment on above: Result Comment: Elec tronically Signed By: Payton Ordaz\.caro\Date and Time Signed: 09/19/21 15:25 EDT Main OR PACU I Recordon 09-08 Main OR PACU I Record PACU Phase I Document Type FT Summary Primary Physician: Cas Severino DO Finalized Date/Time: 09/19/21 14:02:37 Pt. Name: ANNE KEMP [place]/Sex: 1955 Female Med Rec #: [id number] Physician: Cas Severino DO Financial #: [id number] Pt. Type: O Room/Bed: N317/01 Admit/Disch: 09/19/21 [...] I Outcomes Met? Yes Last Modified By: Cuco ROCHA, Jeni Kelly 09/19/21 14:02:26 Post-Care Text: The patient demonstrates [...] By: Jeni Norwood RN 09/19/21 14:02 Normal [facility] Main OR Preoperative Recordo n 09-19-2021 Main OR Preoperative Record PreOp Document Type FT Summary Primary Physician: Cas Severino DO Finalized Date/Time: 09/19/21 12:11:01 Pt. Name: ANNE KEMP D.O.B./Sex: 1955 Female Med Rec #: [id number] Physician: Cas Severino DO Financial #: [id number] Pt. Type: A Room/Bed: [place] [address] Admit/Disch: 09/19/21 08:30:31 - Institution: Case Times [...] By: Gila Armas RN 09/19/21 12:11 Normal [facility] Message from Medicareon 09-08 Message from Medicare [id number]#1.00CD: 127 [facility] Monitor Recordon 09-19-2021 Monitor Record [id number]#1.00CD :127 [facility] Patient Education - Texton 0 09-19-2021 [...] Keep items that you use often in ckmu-ec-vsjor places. Lower the shelves around your home [...] the way. ? Do not use floor british virgin islander or wax that makes floors slippery. If [...] Control and Prevention, [place]: https://cdc.gov ? National [place] on Aging: https://zh4nbda.bryson.nih. gov Contact a doctor if: ? You are afraid of falling at home. ? You feel weak, drowsy, or dizzy at home. ? You fall at home. Summary ? There are many simple things that you can do to make yo (more content not included)... Normal [facility] Progress Note-Physicianon Progress Note-Physician Patient: ANNE KEMP [...] # 60 tab(s), Refills(s) 0, Pharmacy: [facility] [address], [address], cm, 04/11/22 6:21:00 EDT, Height/Length Dosing, 73, kg, 09/18/21 6:21:00 EDT, Weight Dosing Colace 100 mg Cap: 100 mg = 1 cap(s), Oral, BID, PRN for constipation, # 40 cap(s), Refills(s) 0, Pharmacy: [facility], [address], cm, 09/18/21 6:21:00 EDT, Height/Length Dosing, 73, kg, 09/18/21 6:21:00 EDT, Weight Dosing oxyCODONE 5 mg Tab: 5 mg = 1 tab(s), Oral, q6hr, 1-2 po q4-6 hrs prn pain Dx: M17.12, Z96.652 Duration: 7days Disregard si po q6hr prn pain, # 40 tab(s), Refills(s) 0, Pharmacy: [facility] [address], [address], cm, 09/18/21 6:21:00 EDT, Height/Length [...] Daily, Refills( (more content not included)... Normal [facility] Comment on above: Result Comment: Elec tronically [...] UKA. Postoperative Diagnosis: same. Performed by: erick. Meat And Poultry Inspector: pawel. Specimens Removed: hardware, bone, soft tissue. Prosthesis: Fany. . Estimated Blood Loss: 0 ml. Complications: None. Anesthesia type: Spinal, add canal block. Normal [facility] Comment on above: Result Comment: Elec tronically [...] BIDPC, # 60 tab(s), Refills(s) 0, Pharmacy: [address], [address], cm, 09/18/21 6:21:00 EDT, Height/Length Dosing, 73, kg, 09/18/21 6:21:00 EDT, Weight Dosing Colace 100 mg Cap: 100 mg = 1 cap(s), Oral, BID, PRN for constipation, # 40 cap(s), Refills(s) 0, Pharmacy: [address], [address], cm, 09/18/21 6:21:00 EDT, Height/Length Dosing, 73, kg, 09/18/21 6:21:00 EDT, Weight Dosing oxyCODONE 5 mg Tab: 5 mg = 1 tab(s), Oral, q6hr, 1-2 po q4-6 hrs prn pain Dx: M17.12, Z96.652 Duration: 7days Disregard si po q6hr prn pain, # 40 tab(s), Refills(s) 0, Pharmacy: [address], [address], cm, 09/18/21 6:21:00 EDT, Height/Length [...] Oral, BID, (more content not included)... Normal [facility] Comment on above: Result Comment: Elec tronically Signed By: Luis M Delgado CRNA.br\Date and Time Signed: 09/19/21 12:13 EDT UA With Cult Reflexon 2021 Bacteria LM Ql (Urine sed) TRACE Normal Trace [facility] Comment on above: Performed By: #### 1 [id number] #### [facility] [address] [place] [address] Bilirubin Ql (U) Negative Normal Negative [facility] Comment on above: Performed By: #### 1 [id number] #### [facility] [address] [place] [address] Clarity (U) CLEAR Normal Clear [facility] Comment on above: Performed By: #### 1 [id number] #### [facility] [address] [place] [address] Color (U) STRAW Abnormal Yellow [facility] Comment on above: Performed By: #### 1 [id number] #### [facility] [address] [place] [address] Crystals LM Ql (Urine sed) Present Normal [facility] Comment on above: Performed By: #### 1 [id number] #### [facility] [address] [place] [address] Epithelial cells.squamous LM.HPF (Urine sed) [#/Area] 0-2 Normal 0-2 [facility] Comment on above: Performed By: #### 1 [id number] #### [facility] [address] [place] [address] Glucose Test strip (U) [Mass/Vol] Negative Normal Negative [facility] Comment on above: Performed By: #### 1 [id number] #### [facility] [address] [place] [address] Hemoglobin Ql (U) Negative Normal Negative [facility] Comment on above: Performed By: #### 1 [id number] #### [facility] [address] [place] [address] Ketones (U) [Mass/Vol] Negative Normal Negative [facility] Comment on above: Performed By: #### 1 [id number] #### [facility] [address] [place] [address] [place].plasma/Lithi um.RBC (Bld) [Mass ratio] 0-3 Normal 0-3 [facility] Comment on above: Performed By: #### 1 [id number] #### [facility] [address] [place] [address] Nitrite Ql (U) Negative Normal Negative [facility] Comment on above: Performed By: #### 1 [id number] #### [facility] [address] [place] [address] pH (U) 6.0 [pH] Invalid Interpretation Code 5.0-9.0 [facility] Comment on above: Performed By: #### 1 [id number] #### [facility] [address] [place] [address] Protein (U) [Mass/Vol] Negative Normal Negative [facility] Comment on above: Performed By: #### 1 [id number] #### [facility] [address] [place] [address] Specific gravity (U) [Rel density] 1.015 Invalid Interpretation Code 1.005-1.030 [facility] Comment on above: Performed By: #### 1 [id number] #### [facility] [address] [place] [address] Type of Urine collection method Martin Normal [facility] Comment on above: Performed By: #### 1 [id number] #### [facility] [address] [place] [address] Urobilinogen Qn (U) 0.2 {Becca'U}/dL Normal 0.0-1.0 [facility] Comment on above: Performed By: #### 1 [id number] #### [facility] [address] [place] [address] WBC Auto Ql (U) Negative Normal Negative [facility] Comment on above: Performed By: #### 1 [id number] #### [facility] [address] [place] [address] WBC LM.HPF (Urine sed) [#/Area] 0-5 Normal 0-5 [facility] Comment on above: Performed By: #### 1 [id number] #### [facility] [address] [place] [address] URINALYSISOrdered By: Víctor starks on 09-19-2021 Bacteria [...] AM) Normal Negative [facility] UA Auto SS [place].plasma/Lithi um.RBC (Bld) [Mass ratio] 0-3 /HPF Normal 0-3/HPF [facility] UA Auto SS Nitrite Ql (U) Negative (09/19/21 11:50 AM) Normal Negative [facility] UA Auto SS pH (U) 6.0 *NA* (09/19/21 11:50 AM) Invalid Interpretation Code 5.0 - 9.0 [facility] [place] Auto SS Protein (U) [Mass/Vol] Negative (09/19/21 11:50 AM) Normal Negative [facility] [place] Auto SS Specific gravity (U) [Rel density] 1.015 *NA* (09/19/21 11:50 AM) Invalid Interpretation Code 1.005 - 1.030 [facility] [place]A Auto SS UA Spec Desc Martin (09/19/21 11:50 AM) Normal [facility] [place] Auto SS Urobilinogen Qn (U) 0.0763395 {Becca'U}/dL Normal 0.0 - 1.0 EU/dL [facility] [place] Auto SS WBC Auto Ql (U) Negative (09/19/21 11:50 AM) Normal Negative [facility] [place] Auto SS WBC LM.HPF (Urine sed) [#/Area] 0-5 /HPF Normal 0-5/HPF [facility] [place]A Auto SS XR [...] M.D. Transcribed by: KAREN Technologist: NICOLLE Normal [facility] Consent for Procedure/Surger yon 09-18-2021 Consent for Procedure/Surgery [id number] :127 Normal [facility] XR Chest 2 Viewson 2 XR Chest [...] Nelson MD, V. Transcribed by: KAREN Technologist: PROGRAMS MANAGER Normal [facility] ABO/Rh Retypeon 09-15-2021 ABO/Rh Retype Interp Positive Invalid Interpretation Code [facility] Comment on above: Performed By: #### 1 [id number] ####[facility] [id number] [place] [address] BLOOD BANKOrdered By: Terri Escobar on 09-15-2021 ABO/Rh Retype Interp Positive Invalid Interpretation Code [facility] [place] BB Subsection BUNon 09-15-2021 Urea nitrogen [Mass/Vol] 15 mg/dL Normal 5-21 [facility] Comment on above: Performed By: #### 2 [id number], [id number], [id number], 1479017, 3526729, [id number] #### [facility] [address] [place] [address] CBC w/Indiceson 09-15-2021 Erythrocyte distribution width (RBC) [Ratio] 13.6 % Normal 10.9-14.2 [facility] Comment on above: Performed By: #### 2 [id number], [id number], [id number], 5894370, 7417828, 2053567 #### [facility] [address] [place] [address] Hematocrit (Bld) [Volume fraction] 34.0 % Normal 34.0-46.0 [facility] Comment on above: Performed By: #### 2 972140, [id number], [id number], 3210440, 7779947, 7836607 #### [facility] [address] [place] [address] Hemoglobin (Bld) [Mass/Vol] 11.9 g/dL Low 12.0-16.0 [facility] Comment on above: Performed By: #### 2 215776, [id number], 19892468, 8059635, 8961030, 6438992 #### [facility] [address] [place], [place] [address] MCH (RBC) [Entitic mass] 31.5 pg Normal 27.0-34.0 [facility] Comment on above: Performed By: #### 2 885086, 4052786, 37262840, 2399862, 5167038, 8358540 #### [facility] [address] [place], [place] [address] MCHC (RBC) [Mass/Vol] 35.0 g/dL Normal 31.4-36.0 [facility] Comment on above: Performed By: #### 2 304260, 8012208, 87405760, 8784850, 3602609, 0309737 #### [facility] [address] [place], [place] [address] MCV (RBC) [Entitic vol] 89.9 fL Normal 80.0-100.0 [facility] Comment on above: Performed By: #### 2 468527, 1577609, 19747853, 3280051, 7446849, 2059135 #### [facility] [address] [place], [place] [address] Platelet mean volume (Bld) [Entitic vol] 6.5 fL Normal 6.4-10.8 [facility] Comment on above: Performed By: #### 2 336222, 9398635, 02215922, 9378024, 2379897, 8366009 #### [facility] [address] [place] [address] Platelets (Bld) [#/Vol] 343.0 E9/L Normal 150.0-500.0 [facility] Comment on above: Performed By: #### 2 [id number], [id number], [id number], 1148083, 1432601, [id number] #### [facility] [address] [place] [address] RBC (Bld) [#/Vol] 3.8 E12/L Low 4.3-5.9 [facility] Comment on above: Performed By: #### 2 778263, 7008640, [id number], 6992871, 5074186, 8898081 #### [facility] [address] [place] [address] WBC corrected for nucl RBC Auto (Bld) [#/Vol] 4.8 E9/L Normal 4.0-11.0 [facility] Comment on above: Performed By: #### 2 072619, 0600584, [id number], 7700185, 1339668, 9773285 #### [facility] [address] [place] [address] CHEMISTRYOrdered By: SYSTEM SYSTEM on 09-15-2021 Anion gap [Moles/Vol] 11 mmol/L Normal 6 - 16 mEq/L [facility] Chloride [Moles/Vol] 103 mmol/L Normal 101 - 1 11 mmol/L [facility] CO2 [Moles/Vol] 25 mmol/L Normal 21 - 31 mmol/L [facility] Creatinine [Mass/Vol] 0.8 mg/dL Normal 0.5 - 1.3 mg/dL [facility] Remisol GFR/1.73 sq M.predicted among blacks MDRD (S/P/Bld) [Vol rate/Area] mL/min/1.73 m2 Normal >=59mL/min/ 1.73 m2 [facility] Chem S GFR/1.73 sq M.predicted among non-blacks MDRD (S/P/Bld) [Vol rate/Area] mL/min/1.73 m2 Normal >=59mL/min/ 1.73 m2 [facility] Chem S Glucose [Mass/Vol] 84 mg/dL Normal 55 - 199 mg/dL [facility] Potassium [Moles/Vol] 4.1 mmol/L Normal 3.5 - 5.3 mmol/L [facility] Sodium [Moles/Vol] 135 mmol/L Normal 135 - 145 mmol/L [facility] Urea nitrogen [Mass/Vol] 15 mg/dL Normal 5 - 21 mg/dL [facility] Consent for Treatmenton Consent for Treatment [id number]: 127 Normal [facility] Creatinineon 09-15-2021 Creatinine [Mass/Vol] 0.8 mg/dL Normal 0.5-1.3 [facility] Comment on above: Performed By: #### 2 411503, 1901555, 65962428, 6027678, 5551723, 3031965 ####[facility] [address] [place] [address] Glucoseon 09-15-2021 Glucose [Mass/Vol] 84 mg/dL Normal 55-199 [facility] Comment on above: Performed By: #### 2 825963, 2254835, 75924684, 4664378, 1843668, 9274736 #### [facility] [address] [place] [address] HEMATOLOGYOrdered By: Terri Escobar on 09-15-2021 Erythrocyte distribution width (RBC) [Ratio] 13.6 % Normal 10.9 - 14.2 % [facility] HemeAutoSS Hematocrit (Bld) [Volume fraction] 34.0 % Normal 34.0 - 46.0 % [facility]eAutoSS Hemoglobin (Bld) [Mass/Vol] 11.9 g/dL Low 12.0 - 16.0 gm/dL [facility] HemeAutoSS MCH (RBC) [Entitic mass] 31.5 pg Normal 27.0 - 34.0 pg [facility]eAutoSS MCHC (RBC) [Mass/Vol] 35.0 g/dL Normal 31.4 - 36.0 gm/dL [facility]eAutoSS MCV (RBC) [Entitic vol] 89.9 fL Normal 80.0 - 100.0 fL [facility] Platelet mean volume (Bld) [Entitic vol] 6.5 fL Normal 6.4 - 10.8 fL [facility]eAutoSS Platelets (Bld) [#/Vol] 343.0 E9/L Normal 150.0 - 500.0 E9/L [facility]eAutoSS RBC (Bld) [#/Vol] 3.8 E12/L Low 4.3 - 5.9 E12/L [facility] WBC corrected for nucl RBC Auto (Bld) [#/Vol] 4.8 E9/L Normal 4.0 - 11.0 E9/L [facility] HemeAutoSS Lyteson 09-15-2021 Anion gap [Moles/Vol] 11 mmol/L Normal 6-16 [facility] Comment on above: Performed By: #### 2 965314, 9785030, 10161879, 3147201, 4004453, 2229154 ####[facility] [address] [place] [address] Chloride [Moles/Vol] 103 mmol/L Normal 101-111 [facility] Comment on above: Performed By: #### 2 535040, 9961276, 18314696, 7595065, 8831395, 0868899 ####[facility] [address] [place] [address] CO2 [Moles/Vol] 25 mmol/L Normal 21-31 [facility] Comment on above: Performed By: #### 2 205561, 3507100, 55646392, 7371944, 3850785, 8056223 ####[facility] [address] [place] [address] Potassium [Moles/Vol] 4.1 mmol/L Normal 3.5-5.3 [facility] Comment on above: Performed By: #### 2 855538, 5429294, 19046876, 4607499, 3725170, 4754370 ####[facility] [address] [place] [address] Sodium [Moles/Vol] 135 mmol/L Normal 135-145 [facility] Comment on above: Performed By: #### 2 684234, 6662719, 20951747, 2499339, 1743286, 3009806 ####[facility] [address] [place] [address] UA With Cult Reflexon 2021 Bacteria LM Ql (Urine sed) TRACE Normal Trace [facility] Comment on above: Performed By: #### 1 [id number] ####[facility] [address] [place] [address] Bilirubin Ql (U) Negative Normal Negative [facility] Comment on above: Performed By: #### 1 9250797 ####[facility] [address] [place] [address], [place] [address] Clarity (U) CLEAR Normal Clear [facility] Comment on above: Performed By: #### 1 5500601 ####[address] [place] [address] Color (U) YELLOW Normal Yellow [facility] Comment on above: Performed By: #### 1 0381735 ####[address] [address] Crystals LM Ql (Urine sed) Present Normal [facility] Comment on above: Performed By: #### 1 9029214 ####[address] [address] Epithelial cells.squamous LM.HPF (Urine sed) [#/Area] 0-2 Normal 0-2 [facility] Comment on above: Performed By: #### 1 [id number] ####[facility] [address] [place] [address] Glucose Test strip (U) [Mass/Vol] Negative Normal Negative [facility] Comment on above: Performed By: #### 1 5605461 ####[facility] [address] [place] [address] Hemoglobin Ql (U) Negative Normal Negative [facility] Comment on above: Performed By: #### 1 3955772 ####[facility] [address] [place] [address] Ketones (U) [Mass/Vol] Negative Normal Negative [facility] Comment on above: Performed By: #### 1 4744373 ####[address] [place] [address] [place].plasma/Lithi um.RBC (Bld) [Mass ratio] 0-3 Normal 0-3 [facility] Comment on above: Performed By: #### 1 4377338 ####[address] [address] Nitrite Ql (U) Negative Normal Negative [facility] Comment on above: Performed By: #### 1 7129079 ####[address] [address] pH (U) 6.5 [pH] Invalid Interpretation Code 5.0-9.0 [facility] Comment on above: Performed By: #### 1 2674683 ####[address] [address] Protein (U) [Mass/Vol] Negative Normal Negative [facility] Comment on above: Performed By: #### 1 8053369 ####[address] [address] Specific gravity (U) [Rel density] <=1.005 Invalid Interpretation Code 1.005-1.030 [facility] Comment on above: Performed By: #### 1 7158518 ####[address] [address] Type of Urine collection method Clean Catch Normal [facility] Comment on above: Performed By: #### 1 [id number] ####[address] [address] Urobilinogen Qn (U) 0.2 {Becca'U}/dL Normal 0.0-1.0 [facility] Comment on above: Performed By: #### 1 7733241 ####[address] [address] WBC Auto Ql (U) Negative Normal Negative [facility] Comment on above: Performed By: #### 1 5737016 ####[address] [address] WBC LM.HPF (Urine sed) [#/Area] 0-5 Normal 0-5 [facility] Comment on above: Performed By: #### 1 9748308 ####[address] [address] URINALYSISOrdered By: Colton Minor on 09-15-2021 Bacteria [...] PM) Normal Negative [facility] UA Auto SS [place].plasma/Lithi um.RBC (Bld) [Mass ratio] 0-3 /HPF Normal [...] [facility] UA Auto SS Urobilinogen Qn (U) 0.7436639 {Becca'U}/dL Normal 0.0 - 1.0 EU/dL [facility] UA Auto SS WBC Auto Ql (U) Negative (09/15/21 5:32 PM) Normal Negative [facility] UA Auto SS WBC LM.HPF (Urine sed) [#/Area] 0-5 /HPF Normal 0-5/HPF [facility] UA Auto SS eGFRon 09-15-2021 GFR/1.73 sq M.predicted among blacks MDRD (S/P/Bld) [Vol rate/Area] mL/min/{1.73_m2} Normal >=59 [facility] Comment on above: Order Comment: Order added by Discern Expert. Result Comment: eGFR is race adjusted. AA=. Performed By: #### 2 538819, 2607184, 86519558, 6963606, 7269163, 7954274 #### [facility] [address] [place] [address] GFR/1.73 sq M.predicted among non-blacks MDRD (S/P/Bld) [Vol rate/Area] mL/min/{1.73_m2} Normal >=59 [facility] Comment on above: Order Comment: Order added by Discern Expert. Result Comment: Sales Support Assistant josesito kidney disease could be indicated at eGFR's of less than 60 mL/min/1.73m2. Kidney failure is indicated at less than 15 mL/min/1.73m2. Performed By: #### 2 256630, 4520790, 95301164, 9885974, 2606701, 7388302 #### [facility] [address] [place] [address] COVID-19 [place]on 09-13-2021 SARS-CoV-2 (COVID-19) RNA RANGEL+probe Ql (Resp) Not detected Normal Not Detected [facility] Comment on above: Result Comment: This test result should be correlated with clinical presentations and medical history by a healthcare provider to determine its clinical significance. This assay was performed by a reverse transcriptase real-time polymerase chain reaction (rt PCR) method on the [employer] system. This test has been authorized only [...] or revoked sooner. Performed By: #### 2 [id number] #### [facility] [address] [place] [address] SARS-CoV-2 (COVID-19) RNA RANGEL+probe Ql (Unsp spec) Pass Normal Pass [facility] Comment on above: Performed By: #### 2 [id number] #### [facility] [address] [place] [address] Specimen source Nom (Unsp spec) Nasal Normal [facility] Comment on above: Performed By: #### 2 [id number] #### [facility] [address] [place] [address] Coding Summary.on 09-13-2021 Coding Summary. CD:[id number]:[id number] Gh0b Ww+PGhlYWQ+NL9ZUXEvX87og TYalH8TU5eWOG1TOMSLPEQQV O1ZKV1vsWT6NQacN2ZrpvLw NtixlHGwQF08IZg7IYY9tPtd SUoxpP7rpYKqS5g8IbKsZR08 bK23CXbnQDZyCxO1EgNtlobz bWFy E4uwMeEzbSQmBrc+PHRhYmxl IHdpZHRoPScxMDAlJyBzdHls LR8iLl4kUWJgAXEuuNltjZQn OiBj g3ucEZPsNSwcWS5oxHfdP8Kx jZB2AYAnp1y5On76sBP+PHRk HOB2jAjuEJuus056FnSte2fq IDM3 vUUyTDxpGEH6K32jm3I6TJJj DTBxIKE8tAI4wK7qpSvsejvj I2TaxILaOoY0YNZ5vYLjkM8b bGln exunhN6eIep+S17XNP0PSFEY CQ9TBhs8W3DkWgyexLU+PC90 XTLmVI80wCWlqYXvn7wjqBo3 JzEw THUyRIE1pNjsOEsnh0OiIUPu N81uzPTjx4F5YHTziBsluTZx IfQdwES3aB6bVOqbcblla3ml dzsn Djoyd6aybc80hQ72H51bOPnh PXZaHSH6TLGnFRCmqMmjjv5h hK9jYy1+UKcsf2lhr2rakRu5 IjIw PEKpfwOtxKbjOLX3l3XjFm85 R0JcqYrkb8ZfRmo6jo38vFAv j2F8aAI2BKnkJLMmlX8hZWri ZnQ6 UZCwSeVjjG44mZOzDIqaQz5e oHkkfRvdDS7gJFDlbjmbNOAc yQ1cOWPzwOXldJwyRV9dVXXo bjtm w183LtHwPJA5BLMlcFJdM8Mj lK3oDhIbPZDhOPXuQ6EcaLWb JDnlU014FPfbVyV8KXWnpfVw Y2Fs SLResHurNuS5b6W2My0Nz0Un sakrHEW8IQpiJLE1ReA3EgOs PjC1W0MsDgp1KNOowWudXS4u J3Bh FFRvnqrtrmsvnIH2TKXnWGMb rG77bRIbFQjrOk7dg9R0v148 HXItTVCgeK93Tl4npPypAZXo dCBU sN8skqgkz4gaoeyxCiDsKZQj PTq3ZIv1JQEwsThfYmHhZPK4 UaY1VAP5sWUchL7fiGvxkukq dG9w Oyc+M96wvC7lIUE7RZA0jajo ONFsfhFrOK60XW51V4HgGoay dGFibGU+PDTbsrRtoEvsNG7z YmFj p6osr8OzFCvuP9MiDJBcIPpy Cit5AVGaUGL0gFC3jT3xJTIe KZqod3S0kGK3P0ZlghNlna2a b2xs JZLtAUnkM83syUTrv2P2AGGp aRD6LUZyjLfxSsKdsM25Snn+ RTOqoCvva5FqYyvfa8wpj5cc dGg9 UtZvWLNfjsAjxBefZRF8a4Sz Sl98Z36qJZicPZDdDDDiOHAf ZQEnsMzmzr2jqG1wGl5+PGNv bCB3 rHO2zV1zJHHkGpU9ECqrA995 KlDhoPFwRdwxf9uor6cnhLh2 EtCjKOZtzbDthEvuOTE4h6Wd Lz48 U31uTJoiXHNxSRWqPOBhYOOy lZadbm4fxS5dNw6+YA5tr3lm hb82nR52yYF+APBdLOS8nHfc PSdw REYpoX7dJZlrSdK1IMAzDsVc sF38hUGtHMowFs2qbBwqzDjv TT5jAZNaicgmq778JeUvx2oq IDEw bTIuKKaaXSD6D21sf8J3PSWu RFWyHQR2sPN3mC3paAjlfmnm bGVmdDsgdmVydGljYWwtYWxp Z246 IHRvcDsnPlBhdGllbnQgTmFt JGu9G5BrNfw6DAUjiSdcAS1x xSQeLJxfKt6xpSoxaRsrYW6k NTBp avutu929KyWrw3jtZSJdoFQs FTumYTI6L07eb7L7TXNbRXRz IAQ7wRW0iM0fzLkvmpeumMGi dDsg amNuhNkjWThsAGxlM861AQEo oWxbBhWbodOzZPZauFX6UC89 PM34eKRzl2R6cMY1K8XfSRLh bmct hhbkcOM1HSMyJREfoD98Ak0i dIkwBg7lWXXyEZB0VGSskKRl B6HqoV9wJiFkEKZzMDBoS9Ob eHQt AOfqG207CNdcOgP8JLMihuHx I0PaXOBabHygFyR2c9A1Yk6G G8M2LK33KA67eWIfu9I6dAX3 J3Bh FRIumgpdjutsjIU3IUBfVEPm tN65Fs1qnPgbWp9zPAZvESQ8 UHZsdPArA7BioY9nKqHxGEWf MDAw A4IvzSTsLAshQ493MRnkNtO8 BCWmeqTyE4VeQNTsaCtiQrD4 u4I7Dv3IDLs5AH64FM86cTRj c3R5 oCQ8Q1IcTSWprtlgltajbHP3 RCAkFRPmiY49Dx2adWeiAu4q TWHoTFJ8IXXkcTLoP0SkgV7m OiAj XNFzFRUiE9JsrIRyGOgiC308 THwwNlF9ZDJrxgIbQ2GjHMUu sWyzVzZ1x8D7Xr2RTUJnVG49 IFR5 xIB9HI72NS94G9FtRbatyEIs bGU+PHRhYmxlIHdpZHRoPScx LSMgKjRixOxxQM8xFo0gIMEi LWNv sZbexODnXgEql3wjKVCdBWjl BD9obLjcK9VzhTS0BTSbh5f2 Nu47C01tD7CxdMG+PGNvbCB3 aWR0 oD3zMtImTiM1LEakJ994JrEa bHDiQmhfc6vbj0kmjNu3NlA3 TRKwzgJxpDqyBBR0p2HjYj87 Y29s IHdpZHRoPSIxNSUiIHZhbGln ni5gzA2dEy4+MMXobVG6iXE2 cX0cTeUtCfN6BIknR019CdRu cCIv Wsrbc2sbn0umiMc5TmWpUHAb wlKewKvdYGF0a1ZuHs43E4Uj nSusf7LeVop1tk34tPNsg8O3 bGU9 D8ExFBSocpzzbAAfoXyjMP8o MFMedabbPFJfeG1zMCLlP0m9 WiJaJdD6RChyO1XizyM7ICJr cHQg HChxDBG5O79uj4L3VIHxPPQg JEK3zOV7oL7bhDyothyquHJb iGxgbiNijYpeCBjkDRcwO865 IHRv sCrrFUQcmR6zTSZxkCYugTbd UX8sNULsizwdMx4USRtLKFtd Qg6RCQonySZ+ZPSnBVN5xAbt PSdw QXLadJ1jKSKcL6v5VhQfOhJ8 KMvqO3AgBBRkuoizNi52uA9b FbVsSqJ5PDfeF2AtfvR0KZDa cHQg EPbuJAC2P34sb5E7ZXSvVHWd NFP1dAZ3mI1ouCoaeveykWHj fSwzbmSbcCsbDOreSQbjV206 IHRv sUrqAfSoDgP4WrN5DPL3N1Hn Afa9IFUmuZkmHM1gkXHrASvr Ma5ufGklnLbdSO4mDVVcwcso YWRk yS3tEJFkeJTzxIfrGR1dSLRs gooky912XqAaNUC8RTOxjOGc K5JyjT9bAvNsZYOaYRTdQ1Qs eHQt SWmgC058MPfvPoH0ZZZtytSk J7YyVFHgqKquKoG9w9P5Sd65 NiBZZWFyczwvdGQ+PHRkIHN0 eWxl XUdqLERbuZ2aFWEsG9h8PrPb ImF1NBvwR1XdNWMgsoaaVq65 cO8hGkUpFyD0QWleP1WrsfQ2 IDEw tZJrXAwuVOQ3C62ty8F4CRMz FGMcJIX5vNC7hW2krAhqmudf bGVmdDsgdmVydGljYWwtYWxp Z246 IHRvcDsnPkZlbWFsZTwvdGQ+ SAPtRCW5wIoiTHdiDHDmrR5i HVFhJ1k5NvXtOmI0KEjxU7Pp ZGRp mrshTn10pO8cDvErEmA4AQqb R4PgjmU0ZECdsTPhNDxrLED1 A72bh4I3FJXpITWsYXH2hRK6 dC1h bGlnbjogbGVmdDsgdmVydGlj JJbtRQnnE792RMIkgQfjWuEg P9XvmncbDopawDY+II37zt87 L3Rh CedwDdj1FBQwKRK6sAD6cH3y CFYoATbns3R8rCP2W1WqtdDu go3zo0voAQBpHWgkT71abCJa c2U7 WESsyVF4VKGshZpvBnInlN33 Oyc+NBQnnLkot9XvXangi2ck u9ppbJx1XoQeXKMjhmAzzJui PSJ0 a4JyYw57E41kFVkgYTLiQYPc RGAnVOPjlNgphx9vwB3eIp0+ HYTtiUV3uQZ2qY7dHaGqGrE9 YWxp S502SjOlzFLgBuybb0vas5rv jCz0XkCbWUEzbyQbpSxjARE0 m7LaBf81B6FulFxhv0SySsp7 cj48 bIPip9K0gHU8R5TgLDOzrcko lAWznGjdAI3uXJElufflSMNm bV5vPKFkQ2m6RhJzVyS1TPic O2Zv bwY8QIJswDXxDEKiqRUMwF7l kxcty4fzrronYeZwBEBzXRb4 REh1VHLeqPqdPhDxOJW8EhD3 ZXJ0 uSMfbM0buAwjrtqlbF1xCsp+ EVn7r5yihHFfTM4bgRD9WG74 GI62uIDuu5T1sUO2F0IlSEXw bmct owihvYH3UBYvUYIcrH77Bc9e iJkiOk0wRSYkOOY0WSMpvFWt Q5LwdK2pHkDdXATeLOFuW6Uj eHQt LRkpR695AVckKbY5POSysbOx F2JoGKSviQpzIcY8e6X8Aa9L RT35VT20ZH49wZWio4A4kGV6 J3Bh LIGuwbmkallmfQD4UULrUOLg jQ41Dg6ykEqnMc8pPQRaPVU7 CVBrjAGhX7XejM8dJkPqRUZm MDAw H9PqdLJmNOlgA832OMerOrT4 WLLstyFsO1PyNJNwiQjsJuV0 h5L8Lx7WSu53UL50IG55pVNr c3R5 pLI5G3SvGEXuzpoagvxtnYD7 HCXbBDOdnB15Gd2vrEfzZw1i XSSrMHC0QSKvdSKsA1RdaS7u OiAj JIOeASPlV1KfjVTyNRloQ251 ZVmxQbA3NQYcowYvJ7LzJBTc fBkcWhG1x7V7Ch4OKKiaybt9 L3Rk PjwvdHI+ZI60GYEmIQ68lXYw tEOcw6byfDp7OgSyMILnPVT8 cLvbINjcb5IhSICcO47itABt c2U6 IGNv (more content not included)... Normal [facility] Consent for Treatmenton Consent for Treatment [id number]#[id number]: 127 Normal [facility] COVID-19 [place]on 09-11-2021 ADMITTED TO INTENSIVE CARE UNIT FOR CONDITION OF INTEREST:FIND:PT: NO Normal [facility] Comment on above: Performed By: #### 2 [id number] #### [facility] [address] [id number] EMPLOYED IN A HEALTHCARE SETTING:FIND:PT: Unknown Normal [facility] Comment on above: Performed By: #### 2 [id number] #### [facility] [address] [place] [address] FIRST TEST FOR CONDITION OF INTEREST:FIND:PT: Unknown Normal [facility] Comment on above: Performed By: #### 2 [id number] #### [facility] [address] [place] [address] HAS SYMPTOMS RELATED TO CONDITION OF INTEREST:FIND:PT: Unknown Normal [facility] Comment on above: Performed By: #### 2 [id number] #### [facility] [address] [place] [address] HOSPITALIZED FOR CONDITION OF INTEREST:FIND:PT: NO Normal [facility] Comment on above: Performed By: #### 2 [id number] #### [facility] [address] [place] [address] STATUS:FIND:PT: NO Normal [facility] Comment on above: Performed By: #### 2 [id number] #### [facility] [address] [place] [address] RESIDES IN A [facility] SETTING:FIND:PT: Unknown Normal [facility] Comment on above: Performed By: #### 2 [id number] #### [facility] [address] [place] [address] Physician Orderon 09-05-2021 Physician Order [id number]#[id number] :127 Normal [facility] Physician Orderon 09-04-2021 Physician Order [id number]#1.00CD: 127 Normal [facility] COVID Quick Testingon 2020 Result Negative [facility] Other Mononucleosis Test, Qualon 1 07-02-2020 Heterophile Ab LA Ql (S) Negative [facility] Other XR chest 2V*on 05-02-2021 XR chest 2V* [facility] Main [address] [address] XRay Report Signed Patient: Anne Kemp MR#: [id number] 1 : 1955 Acct:[id number] Age/Sex: 66 / F ADM Date: 05/02/21 Loc: [id number] Room: Type: [facility] Attending Dr: Wilmer Patino PA-C Ordering Provider: [...] Granado Jr., M.D.05/02/2021 3:45 PM Dictation Location: [place] [address] Transcribed By: [facility] 05/02/21 1545 Dictated By: Arden Granado Jr, MD 05/02/21 1538 Signed By: 05/02/21 1545 [facility] XR chest 2V* [facility] [place] Other XR chest 2V* [facility] Main [facility] [place] Other XR chest 2V* [address] [place] [address] [place] Other XR chest 2V* [address] [place] Other XR chest 2V* XRay Report [facility] Other XR chest 2V* Signed [facility] Other XR chest 2V* Patient: Anne Kemp MR#: [id number] [facility] [place] Other XR chest 2V* 1 [place] [facility] Other XR chest 2V* : 1955 Acct:[id number] [facility] Other XR chest 2V* Age/Sex: 66 / F ADM Date: 05/02/21 [facility] Other XR chest 2V* Loc: [id number] Room: pe: REG CLI [facility] Other XR chest 2V* Attending Dr: Wilmer Patino PA-C [facility] Other XR chest 2V* Ordering Provider: Wilmer Patino [facility] Other XR chest 2V* Date of Service: 05/02/21 [facility] Other XR chest 2V* XR/XR chest 2V*: Cough [facility] Other XR chest 2V* Copies to: Wilmer Patino [facility] Other XR chest 2V* Chest 05/02/2021. [facility] Other XR chest 2V* CLINICAL DATA: Cough. N [place] Other XR chest 2V* FINDINGS: 2 views of the chest were obtained and are compared with a prior study 10/12/2014. [facility] Other XR chest 2V* The cardiac silhouet te is normal in size. The pulmonary vasculature is within normal limits. The [facility] Other XR chest 2V* lungs demonstrate chronic-appearing interstitial changes. No pulmonary consolidation or collapse is [facility] Other XR chest 2V* identified. No pneumothorax or pleural effusion is seen. The thoracic spine demonstrates [facility] Other XR chest 2V* degenerative changes . Old rib fractures are noted on the left. [facility] Other XR chest 2V* X R/XR chest 2V* [facility] Other XR chest 2V* IMPRESSION: Chronic-appearing interstitial changes. No acute cardiopulmonary disease. [facility] Other XR chest 2V* Impression dictated by: Arden Granado Jr., M.D.05/02/2021 3:45 PM [facility] Other XR chest 2V* Dictation Location: [facility]- [facility] Other XR chest 2V* Transcribed By: [facility] 05/02/21 1545 [facility] Other XR chest 2V* Dictated By: Arden Granado Jr, MD 05/02/21 1538 [facility] Other XR chest 2V* Signed By: [facility] Other XR chest 2V* 05/02/21 1545 [facility] Other C-Reactive Proteinon 021 C-Reactive Protein 0.7 mg/dL Normal 0.0-1.0 [facility] Comment on above: Performed By: #### P TH, CBC, CMP, [id number], ESR, CRP, URIC #### [facility] [address] [place] [address] Complete Blood Count Auto Di ffon 11-17-2020 Basophils (Bld) [#/Vol] 0.0 10*3/uL Normal 0.0-0.2 [facility] Comment on above: Performed By: #### P TH, CBC, CMP, [id number], ESR, CRP, URIC #### [facility] [address] Basophils/100 WBC (Bld) 0.6 % Normal . [facility] Comment on above: Performed By: #### P TH, CBC, CMP, [id number], ESR, CRP, URIC #### [facility] [address] [place] [address] Eosinophils (Bld) [#/Vol] 0.2 10*3/uL Normal 0.0-0.45 [facility] Comment on above: Performed By: #### P TH, CBC, CMP, [id number], ESR, CRP, URIC #### [address] Eosinophils/100 WBC (Bld) 2.8 % Normal . [facility] Comment on above: Performed By: #### P TH, CBC, CMP, [id number], ESR, CRP, URIC #### [address] Erythrocyte distribution width (RBC) [Ratio] 13.5 % Normal 11.9-15.3 [facility] Comment on above: Performed By: #### P TH, CBC, CMP, [id number], ESR, CRP, URIC #### [address] Hematocrit (Bld) [Volume fraction] 36.4 % Normal 34.0-46.4 [facility] Comment on above: Performed By: #### P TH, CBC, CMP, [id number], ESR, CRP, URIC #### [address] Hemoglobin (Bld) [Mass/Vol] 12.5 g/dL Normal 11.8-15.4 [facility] Comment on above: Performed By: #### P TH, CBC, CMP, [id number], ESR, CRP, URIC #### [address] Lymphocytes (Bld) [#/Vol] 1.9 10*3/uL Normal 1.00-4.8 [facility] Comment on above: Performed By: #### P TH, CBC, CMP, [id number], ESR, CRP, URIC #### [address] Lymphocytes/100 WBC (Bld) 33.4 % Normal . [facility] Comment on above: Performed By: #### P TH, CBC, CMP, [id number], ESR, CRP, URIC #### [facility] [address] MCH (RBC) [Entitic mass] 31.6 pg Normal 24.7-34.3 [facility] Comment on above: Performed By: #### P TH, CBC, CMP, [id number], ESR, CRP, URIC #### [address] MCV (RBC) [Entitic vol] 92.0 fL Normal 80-100 [facility] Comment on above: Performed By: #### P TH, CBC, CMP, [id number], ESR, CRP, URIC #### [address] Mean Corpuscular HGB Conc 34.3 g/dL Normal 32.0-35.0 [facility] Comment on above: Performed By: #### P TH, CBC, CMP, [id number], ESR, CRP, URIC #### [address] Monocytes (Bld) [#/Vol] 0.5 10*3/uL Normal 0.0-0.8 [facility] Comment on above: Performed By: #### P TH, CBC, CMP, [id number], ESR, CRP, URIC #### [address] Monocytes/100 WBC (Bld) 9.2 % Normal . [facility] Comment on above: Performed By: #### P TH, CBC, CMP, [id number], ESR, CRP, URIC #### [address] Neutrophils (Bld) [#/Vol] 3.1 10*3/uL Normal 1.8-7.7 [facility] Comment on above: Performed By: #### P TH, CBC, CMP, [id number], ESR, CRP, URIC #### [address] Neutrophils/100 WBC (Bld) 54.0 % Normal . [facility] Comment on above: Performed By: #### P TH, CBC, CMP, [id number], ESR, CRP, URIC #### [address] Nucleated RBC/100 WBC (Bld) [Ratio] 0.1 % Normal 0-0.5 [facility] Comment on above: Performed By: #### P TH, CBC, CMP, [id number], ESR, CRP, URIC #### [address] Platelet mean volume (Bld) [Entitic vol] 7.0 fL Normal 6.3-10.7 [facility] Comment on above: Performed By: #### P TH, CBC, CMP, [id number], ESR, CRP, URIC #### [address] Platelets (Bld) [#/Vol] 336 10*3/uL Normal 150-450 [facility] Comment on above: Performed By: #### P TH, CBC, CMP, [id number], ESR, CRP, URIC #### [address] RBC (Bld) [#/Vol] 3.95 10*6/uL Normal 3.60-5.00 [facility] Comment on above: Performed By: #### P TH, CBC, CMP, [id number], ESR, CRP, URIC #### [address] WBC (Bld) [#/Vol] 5.7 10*3/uL Normal 4.5-11.0 [facility] Comment on above: Performed By: #### P TH, CBC, CMP, [id number], ESR, CRP, URIC #### [address] Comprehensive Metabolic Pane mariela 11-17-2020 Albumin [Mass/Vol] 4.1 g/dL Normal 3.2-5.5 [facility] Comment on above: Performed By: #### P TH, CBC, CMP, [id number], ESR, CRP, URIC #### [address] Albumin/Globulin [Mass ratio] 1.4 {ratio} Normal [facility] Comment on above: Performed By: #### P TH, CBC, CMP, [id number], ESR, CRP, URIC #### [address] ALP [Catalytic activity/Vol] 105 U/L High 32-92 [facility] Comment on above: Performed By: #### P TH, CBC, CMP, [id number], ESR, CRP, URIC #### [address] ALT [Catalytic activity/Vol] 19 U/L Normal 10-60 [facility] Comment on above: Performed By: #### P TH, CBC, CMP, [id number], ESR, CRP, URIC #### [address] AST [Catalytic activity/Vol] 25 U/L Normal 10-42 [facility] Comment on above: Performed By: #### P TH, CBC, CMP, [id number], ESR, CRP, URIC #### [address] Bilirubin [Mass/Vol] 0.5 mg/dL Normal 0.3-1.2 [facility] Comment on above: Performed By: #### P TH, CBC, CMP, [id number], ESR, CRP, URIC #### [address] Calcium [Mass/Vol] 9.8 mg/dL Normal 8.2-10.2 [facility] Comment on above: Performed By: #### P TH, CBC, CMP, [id number], ESR, CRP, URIC #### [address] Chloride [Moles/Vol] 101 mmol/L Normal 95-114 [facility] Comment on above: Performed By: #### P TH, CBC, CMP, [id number], ESR, CRP, URIC #### [facility] [address] CO2 [Moles/Vol] 27.1 mmol/L Normal 22.0-30.0 [facility] Comment on above: Performed By: #### P TH, CBC, CMP, [id number], ESR, CRP, URIC #### [facility] [address] Creatinine [Mass/Vol] 0.61 mg/dL Normal 0.44-1.03 [facility] Comment on above: Performed By: #### P TH, CBC, CMP, [id number], ESR, CRP, URIC #### [address] Estimated GFR ( [place] > 60 [facility] Comment on above: Result Comment: GFR estimated reference range: According to KDOQI guidelines, <60 ml/min/1.73m2 is sufficient to diagnose a patient with chronic kidney disease. Performed By: #### P TH, CBC, CMP, [id number], ESR, CRP, URIC #### [address] Estimated GFR (Non- Am > 60 [facility] Comment on above: Performed By: #### P TH, CBC, CMP, [id number], ESR, CRP, URIC #### [address] Globulin (S) [Mass/Vol] 3.0 g/dL [facility] Comment on above: Performed By: #### P TH, CBC, CMP, [id number], ESR, CRP, URIC #### [address] Glucose [Mass/Vol] 86 mg/dL Normal 70-100 [facility] Comment on above: Result Comment: [place] om Glucose Reference Range is dependent on time and content of last meal. Glucose of more than 200 mg/dL in a nonstressed, ambulatory subject supports the diagnosis of Diabetes Mellitus. ADA recommended reference range Performed By: #### P TH, CBC, CMP, [id number], ESR, CRP, URIC #### [facility] [address] Potassium [Moles/Vol] 4.9 mmol/L Normal 3.5-5.1 [facility] Comment on above: Performed By: #### P TH, CBC, CMP, [id number], ESR, CRP, URIC #### [facility] [address] Protein [Mass/Vol] 7.1 g/dL Normal 6.1-7.9 [facility] Comment on above: Performed By: #### P TH, CBC, CMP, [id number], ESR, CRP, URIC #### [facility] [address] Sodium [Moles/Vol] 137 mmol/L Normal 136-146 [facility] Comment on above: Performed By: #### P TH, CBC, CMP, [id number], ESR, CRP, URIC #### [address] Urea nitrogen [Mass/Vol] 11 mg/dL Normal 9-23 [facility] Comment on above: Performed By: #### P TH, CBC, CMP, [id number], ESR, CRP, URIC #### [address] Erythrocyte Sedimentation Ra issa 11-17-2020 ESR (Bld) [Velocity] 17 mm/h Normal 0-29 [facility] Comment on above: Result Comment: PERF ORMED BY: [place] [address] PATHOLOGIST YARD RIGGER MAAME REVELES M.D. Performed By: #### P TH, CBC, CMP, [id number], ESR, CRP, URIC #### [address] Parathyroid Hormone Intacton 11-17-2020 Parathyroid Hormone Intact 44.4 pg/mL Normal 12-88 [facility] Comment on above: Result Comment: PERF ORMED BY: [place] [address] PATHOLOGIST YARD RIGGER MAAME REVELES M.D. Performed By: #### P TH, CBC, CMP, [id number], ESR, CRP, URIC #### [facility] [address] [place] [id number] [facility] Uric Acidon 11-17-2020 Urate [Mass/Vol] 3.2 mg/dL Normal 2.6-7.2 [facility] Comment on above: Performed By: #### P TH, CBC, CMP, [id number], ESR, CRP, URIC #### [facility] [address] [place], [place] [id number] [facility] Vitamin D 25 Hydroxy Totalon 11-17-2020 Vitamin D 25 Hydroxy Total 43.7 ng/mL Normal 30-100 [facility] Comment on above: Result Comment: ANNEL MIN D STATUS 25(OH)VITAMIN D RANGE (ng/mL) Deficient <20 Insufficient 20 to <30 Sufficient 30 to 100 Reference: Agapito MF,Amina NC, Cesario KATHLEEN, et al. Evaluation,treatment, and prevention of vitamin D deficiency; an Endocrine Society clinical practice guideline. JCEM. 2010; 96(7):1911-30. Performed By: #### P TH, CBC, CMP, [id number], ESR, CRP, URIC #### [place] [id number] [facility] MR head/brain wo conon 10-14 MR head/brain wo con [facility] [place] [address] MRI Report Signed Patient: Anne Kemp MR#: [id number] 1 : 1955 Acct:[id number] Age/Sex: 65 / F ADM Date: 10/14/20 Loc: [facility] Room: Type: [facility] Attending Dr: Emily Velázquez DO Ordering Provider: [...] Granado Jr., M.D.10/14/2020 3:53 PM Dictation Location: [place] [address] Transcribed By: [facility] 10/14/20 1553 Dictated By: Arden Granado Jr, MD 10/14/20 1547 Signed By: 10/14/20 1553 [facility] ANKLE LEFT 3 [facility] 0 ANKLE LEFT 3 [facility] Department of Radiology [address] [place] [phone] == Patient Name: ANNE KEMP : 1955 Sex: F Age: Race: White Pt. Location: Patient Status: D Ordered Date: 06/23/2019 3:00:00 PM Completed Date: 06/23/2019 03:11 PM Requesting Provider: DANA JI Attending Provider: DANA JI Report Copy To: Signs & Symptoms: M25.562 Pain in left knee I10 History: Edgard Comments: , , , Ordering Provider - [...] AP,Lateral and Tangential views were obtained. (accession [id number]), AP,Lateral and Oblique views were obtained. (accession [id number]) COMPARISON: None FINDINGS: Soft tissues: No acute [...] ankle Electronically signed: Zeus Zee. Transcribed by: [email or web address], User Resident: Electronically Signed by: ZEUS ZEE @ 06/24/2019 01:55 PM Normal [facility] Comment on above: Order Comment: , , = ========= , Ordering Provider - DANA JI MD , KNEE LEFT 3 Son 06-23-2019 KNEE LEFT 3 [facility] Department of Radiology [address] [place] [phone] == Patient Name: ANNE KEMP : 1955 Sex: F Age: Race: White Pt. Location: Patient Status: D Ordered Date: 06/23/2019 3:00:00 PM Completed Date: 06/23/2019 03:11 PM Requesting Provider: DANA JI Attending Provider: DANA JI Report Copy To: Signs & Symptoms: M25.562 Pain in left knee I10 History: Edgard Comments: , , , Ordering Provider - [...] AP,Lateral and Tangential views were obtained. (accession [id number]), AP,Lateral and Oblique views were obtained. (accession [id number]) COMPARISON: None FINDINGS: Soft tissues: No acute [...] ankle Electronically signed: Zeus Zee. Transcribed by: [email or web address], User Resident: Electronically Signed by: ZEUS ZEE @ 06/24/2019 01:55 PM Normal [facility] Comment on above: Order Comment: , , = ========= , Ordering Provider - DANA JI MD , CNOVSPon 04-11-2018 CNOVSP Visit (SP) Office ([place]) Robin KEMP ([id number]) 1955 [facility] Time Provider Qiuxslmepg72/2/18 10:00 AM VICTORIA BURR During your visit [...] R06.00, R06.89(primary diagnosis)Albuterol trial. Will follow up [facility].2. Pulmonary nodule - ICD9: 793.11, ICD10: R91.1See RAPHAEL Steferring Provider: YESSY GREENE [[id number]]Allergies As of Date: 04/11/2018 Noted Allergy ReactionCODEINE [...] by VICTORIA BURR MD on 04/11/18 Normal [facility] PROGRESSon 04-11-2018 Protein mass conc HNO ID: [id number]: Victoria BurrService: (none)Author Type: PhysicianType: Progress NotesFiled: [...] R06.00,R06.89 (primary diagnosis)Albuterol trial. Will follow up [facility].2. Pulmonary nodule - ICD9: 793.11, ICD10: R91.1See Brianna Burr MD [facility] CNOVSPon 04-03-2018 CNOVSP Visit (SP) Office ([place]) Robin KEMP ([id number]) 1955 [facility] Time Provider Jpawtoiupv98/25/18 8:30 AM VICTORIA BURR During your visit today, we recorded the following information about you: Temperature Pulse Respiration Blood pressure 99.4 degrees 81/minute 16/minute 129/76 Weight Height 69.3 kg 1.727 Jhonny Burr MD 04/03/2018 10:55 AM Christina Kemp is a 63 year old female who presents in consultation today 2017. Her history begins out west in [place] where she tripped over a treeroot in [facility] and had blunt trauma to her abdomen from rock.She lacerated her hepatic artery. She was taken to emergent laparotomy andwhile there in the hospital she was noted to have pulmonary nodules. This wasFebruary 2018. She was recommended to have these watched. CT [facility] recently on February 28, 2018 shows [...] CT scan, chest 03/[address] Gerene- Arthritis- Psychiatric disorder- Thyroid diseasePAST SURGICAL HISTORYProcedure [...] playing [place]. [place] We will [place] P[place]s and I'll see her in an one week.- OXIMETRY AT REST2. Dyspnea and respiratory abnormalities - ICD9: 786.09, ICD10: R06.00, R06.89See above- OXIMETRY AT RESTVictoria Burr, MDReferring Provider: YESSY GREENE [[id number]]Allergies As of Date: 04/03/2018 Noted Allergy ReactionCODEINE 04/21/2007PENICILLINS 04/21/2007Date Reviewed: 04/03/2018Reviewed by: Daisha Sanchez - Fully AssessedReason for Visit: abnormal ct scan of the chest [Other] Cmt: new patient consultationPrimary Visit Diagnosis:Pulmonary nodule [R91.1] Other Visit Diagnosis:Dyspnea and respiratory abnormalities [R06.00, R06.89]Order(s):OXIMETRY AT REST [[id number]] Order #: [id number] FUTUREDisposition: Return in about 1 week (around [...] by VICTORIA BURR MD on 04/03/18 Normal [facility] PROGRESSon 04-03-2018 Protein mass conc HNO ID: [id number]: Victoria BurrService: (none)Author Type: PhysicianType: Progress NotesFiled: 04/03/2018 10:55 AMNote Text:Flor Kemp is a 63 year old female who presents in consultation todayApril 03, 2018. [place] in [facility] and had blunt trauma toher abdomen from [place]. She lacerated her hepatic artery. She was [...] playing a role.She will be going to [place] in a few weeks. We will check PFTs and I'llsee her in an one week.- OXIMETRY AT REST2. Dyspnea and respiratory abnormalities - ICD9: 786.09, ICD10: R06.00,R06.89See above- OXIMETRY AT RESTVictoria Burr MD Normal [facility] Vital Signs Date Time Vital Sign Value Performing Clinician Facility 12-17-2024 11:40-0400 Body mass index (BMI) [Ratio] 25.31 kg/m2 Yaritza Castrojessy [employer] Work Phone: [facility] 12-17-2024 11:40-0400 Body temperature 98.49 [degF] Yaritza Castrorocaelz [employer] Work Phone: [facility] 12-17-2024 11:40-0400 Body weight 74.39 kg Yaritza Rebolledoz [employer] Work Phone: [facility] 12-17-2024 11:40-0400 Diastolic blood pressure 82 mm[Hg] Yaritza Castroholz [employer] Work Phone: [facility] 12-17-2024 11:40-0400 Heart rate 63 /min Yaritzaheath Collinsrossholz [employer] Work Phone: [facility] 12-17-2024 11:40-0400 Respiratory rate 18 /min Yaritzaheath Collinshholz [employer] Work Phone: [facility] 12-17-2024 11:40-0400 SaO2% (BldA) [Mass fraction] 97 % Yaritzaheath Castroholz [employer] Work Phone: [facility] 12-17-2024 11:40-0400 Systolic blood pressure 126 mm[Hg] Yaritza Castroholz [employer] Work Phone: [facility] 09-21-2021 09:59-0400 Diastolic blood pressure 87 mm[Hg] Cas Cobbos [facility] 09-21-2021 09:59-0400 Heart rate 94 /min Cas Cobbos [facility] 09-21-2021 09:59-0400 Systolic blood pressure 146 mm[Hg] Cas Cobbos [facility] 09-21-2021 09:00-0400 Promise to Return Cas Severino [facility] 09-21-2021 08:45-0400 Hourly Rounding Cas Pocos [facility] 09-21-2021 08:43-0400 Diastolic blood pressure 95 mm[Hg] Cas Pocos [facility] 09-21-2021 08:43-0400 Heart rate 102 /min Cas Pocos [facility] 09-21-2021 08:43-0400 Systolic blood pressure 154 mm[Hg] Cas Pocos [facility] 09-21-2021 08:00-0400 Body temperature 98.24 [degF] Cas Pocos [facility] 09-21-2021 08:00-0400 SaO2% (BldA) [Mass fraction] 98 % Cas Pocos [facility] 09-21-2021 02:20-0400 Blood Pressure Location Cas Pocos [facility] 09-21-2021 02:20-0400 BP/Pulse Patient Position Cas Pocos [facility] 09-21-2021 02:20-0400 Diastolic blood pressure 97 mm[Hg] Cas Pocos [facility] 09-21-2021 02:20-0400 Mean blood pressure 118 mm[Hg] Cas Pocos [facility] 09-21-2021 02:20-0400 Systolic blood pressure 160 mm[Hg] Cas Pocos [facility] 09-21-2021 01:02-0400 Blood Pressure Location Cas Pocos [facility] 09-21-2021 01:02-0400 BP/Pulse Patient Position Cas Pocos [facility] 09-21-2021 01:02-0400 Mean blood pressure 126 mm[Hg] Cas Pocos [facility] 09-21-2021 00:00-0400 Blood Pressure Location Cas Pocos [facility] 09-21-2021 00:00-0400 Body temperature 98.06 [degF] Cas Pocos [facility] 09-21-2021 00:00-0400 BP/Pulse Patient Position Cas Pocos [facility] 09-21-2021 00:00-0400 Heart rate 93 /min Cas Pocos [facility] 09-21-2021 00:00-0400 Mean blood pressure 127 mm[Hg] Cas Pocos [facility] 09-21-2021 00:00-0400 SaO2% (BldA) [Mass fraction] 97 % Cas Pocos [facility] 09-20-2021 20:24-0400 Heart rate 98 /min Cas Pocos [facility] 09-20-2021 19:38-0400 Body temperature 98.24 [degF] Cas Pocos [facility] 09-20-2021 19:38-0400 Heart rate 98 /min Cas Pocos [facility] 09-20-2021 19:38-0400 Mean blood pressure 122 mm[Hg] Cas Pocos [facility] 09-20-2021 19:38-0400 SaO2% (BldA) [Mass fraction] 95 % Cas Pocos [facility] 09-20-2021 19:00-0400 Respiratory rate 16 /min Cas Pocos [facility] 09-20-2021 17:30-0400 Heart rate 99 /min Cas Pocos [facility] 09-20-2021 17:30-0400 Mean blood pressure 88 mm[Hg] Cas Pocos [facility] 09-20-2021 17:30-0400 Respiratory rate 18 /min Cas Pocos [facility] 09-20-2021 08:22-0400 Mean blood pressure 98 mm[Hg] Cas Pocos [facility] 09-19-2021 13:45-0400 Body temperature 97.16 [degF] Cas Pocos [facility] 09-19-2021 13:45-0400 Respiratory rate 17 /min Cas Pocos [facility] 09-19-2021 13:35-0400 Respiratory rate 18 /min Cas Pocos [facility] 09-19-2021 13:30-0400 Respiratory rate 12 /min Cas Pocos [facility] 09-19-2021 13:19-0400 Body temperature 97.16 [degF] Cas Pocos [facility] 09-15-2021 16:51-0400 Body temperature 97.7 [degF] Cas Pocos [facility] 09-15-2021 16:51-0400 Diastolic blood pressure 88 mm[Hg] Cas Pocos [facility] 09-15-2021 16:51-0400 Heart rate 66 /min Cas Pocos [facility] 09-15-2021 16:51-0400 Mean blood pressure 108 mm[Hg] Cas Pocos [facility] 04-08-2022 16:51-0400 Respiratory rate 16 /min Cas Pocos [facility] 09-15-2021 16:51-0400 SaO2% (BldA) [Mass fraction] 98 % Cas Pocos [facility] 09-15-2021 16:51-0400 Systolic blood pressure 146 mm[Hg] Cas Pocos [facility] 09-15-2021 16:51-0400 Blood Pressure Location Cas Pocos [facility] 09-15-2021 16:50-0400 Blood Pressure Location Cas Pocos [facility] 09-15-2021 16:50-0400 Diastolic blood pressure 82 mm[Hg] Cas Pocos [facility] 09-15-2021 16:50-0400 Heart rate 69 /min Cas Pocos [facility] 09-15-2021 16:50-0400 Mean blood pressure 104 mm[Hg] Cas Pocos [facility] 09-15-2021 16:50-0400 Respiratory rate 16 /min Cas Pocos [facility] 09-15-2021 16:50-0400 Systolic blood pressure 147 mm[Hg] Cas Cobbos [facility] 05-02-2021 15:20-0500 Body height 172.72 cm Wilmer Patino Other [facility] Other 05-02-2021 15:20-0500 Body mass index (BMI) [Ratio] 24.33 kg/m2 Wilmer Patino Other [facility] Other 05-02-2021 15:20-0500 Body temperature 98.6 [degF] Wilmer Patino Other [facility] Other 05-02-2021 15:20-0500 Body weight 72.58 kg Wilmer Patino Other [facility] Other 05-02-2021 15:20-0500 Respiratory rate 16 /min Wilmer Patino Other [facility] Other 05-02-2021 15:20-0500 SaO2% (BldA) [Mass fraction] 95 % Wilmer Patino Other [facility] Other Encounters Encounter Date Encounter Type Care Provider Facility Start: 01-12-2025 End: 01-12-2025 Orders Only Yaritza Mueller [employer] Work Phone: [facility] Comment on above: Primary hypertension (Primary Dx); Chest pain in adult Start: 01-06-2025 End: 01-06-2025 Refill Yaritza Matthewholz [employer] Work Phone: [facility] Comment on above: Primary hypertension Start: 01-05-2025 End: 01-05-2025 Refill Yaritza Aichholz [employer] Work Phone: [facility] Comment on above: Primary hypertension Start: 12-27-2024 End: 12-27-2024 Clinisync Result Encounter Yaritza Ervin [employer] Work Phone: [facility] Unsolicited Start: 12-27-2024 End: 12-27-2024 Clinisync Result Encounter Yaritza Dennishholz [employer] Work Phone: [facility] Unsolicited Start: 12-23-2024 End: 12-23-2024 Clinisync Result Encounter Yaritza Dennishholz [employer] Work Phone: [facility] Unsolicited Start: 12-23-2024 End: 12-23-2024 Clinisync Result Encounter Yaritza Dennishholz [employer] Work Phone: [facility] External Department Unsolicited Start: 12-17-2024 End: 12-17-2024 Orders Only Yaritza Mueller [employer] Work Phone: [facility] Comment on above: Primary hypertension (Primary Dx); Chest pain in adult; Mixed hyperlipidemia Start: 12-17-2024 End: 12-17-2024 Office outpatient visit 25 minutes Yaritza Mueller [employer] Work Phone: [facility] Comment on above: Chest pain in adult (Primary Dx); Primary hypertension ; Mixed hyperlipidemia ; Bipolar affective disorder, current episode mixed, current episode severity unspecified (HCC) Start: 12-14-2024 End: 12-17-2024 Telephone encounter Yaritza Mueller [employer] Work Phone: [facility] Start: 06-27-2023 Patient encounter procedure Yaritza Mueller [employer] Work Phone: [facility] Start: 11-07-2022 ambulatory ETL ANALYST YARITZA ERVIN Facil ity:H1 Start: 10-25-2022 End: 10-26-2022 ambulatory ETL ANALYST YARITZA ERVIN Facility:[facility]1 Start: 07-19-2022 End: 07-20-2022 ambulatory ETL ANALYST YARITZA ERVIN Facility:[facility] Start: 07-11-2022 End: 07-12-2022 ambulatory ETL ANALYST YARITZA ERVIN Facility:[facility] Start: 09-19-2021 End: 09-21-2021 ambulatory DO Cas Joe Pocos [place] Start: 09-19-2021 End: 09-21-2021 Observation Cas Severino [facility] Start: 09-15-2021 End: 09-16-2021 ambulatory DO Cas Joe Pocos [place] Start: 09-15-2021 End: 09-15-2021 Patient encounter procedure Cas Severino [facility] Start: 09-12-2021 End: 12-12-2021 ambulatory DO Cas Joe Pocos [place] Start: 09-04-2021 End: 12-11-2021 Preprocedural examination done Cas Joe Rezaos [facility] Start: 09-04-2021 End: 12-11-2021 Recurring Cas Joe Pocos [facility] Start: 05-02-2021 End: 05-02-2021 ambulatory Wilmer Patino Other [facility] Other Start: 05-02-2021 Office outpatient vi sit 15 minutes Wilmer Patino [facility] Start: 04-11-2018 End: 04-14-2018 [facility] Start: 04-03-2018 End: 04-04-2018 Patient encounter procedure [facility] Procedures Date Procedure Procedure Detail Performing Clinician Start: 12-27-2024 NM JHON PERF SPECT REST STR Yaritza Mueller [employer] Work Phone: Start: 12-23-2024 CA ECHO DOPPLER COMPLETE Yaritza Mueller [employer] Work Phone: Start: 12-04-2023 Mammography Yaritza elizondo [employer] Work Phone: Start: 09-19-2021 Total knee replacement Cas Pocos Arthroplasty of knee Cas Amador ocos Cholecystectomy Cas Pocos Plan of Treatment Date Care Activity Detail Author Start: 07-04-2026 Screening for malign ant neoplasm of colon [facility] Start: 08-06-2025 Medicare Annual Well ness (AWV) Medicare Annual Wellness (AWV) [facility] Start: 12-17-2024 End: 12-17-2026 Echocardiogram 2D complete Echocardiogram 2D complete Echocardiography Routine Primary hypertension Chest pain in adult Expected: 12/17/2024 (Approximate), Expires: 12/17/2026 [facility] Comment on above: Expected: 12/17/2024 (Approximate), Expires: 12/17/2026 Start: 12-17-2024 End: 12-17-2026 NM Heart Perfusion W single state of exercise Stress test with myocardial perfusion Cardiac Nuclear Medicine Routine Primary hypertension Chest pain in adult Mixed hyperlipidemia Expected: 12/17/2024 (Approximate), Expires: 12/17/2026 [facility] Work Phone: Comment on above: Expected: 12/17/2024 (Approximate), Expires: 12/17/2026 Start: 12-03-2024 Screening for malign ant neoplasm of breast Mammogram [facility] Start: 06-27-2024 Medicare Annual Well ness (AWV) Medicare Annual Wellness (AWV) [facility] Start: 1974 Pneumococcal Vaccine : 65+ Years (1 of 2 - PCV) Pneumococcal Vaccine: 65+ Years (1 of 2 - PCV) [facility] Start: 1955 Screening for malign ant neoplasm of colon [facility] Immunizations Immunization Date Immunization Notes Care Provider Gina parikh 03-11-2014 tetanus toxoid, reduced diphtheria toxoid, and acellular pertussis vaccine, adsorbed Wilmer Patino Other [facility] Other Payers Date Payer Category Payer Self-pay 2021 Private Health Insurance [employer] [id number] 2020 Medicare MEDICARE [id number] 1959 Medicare [id number] 1959 Unknown [id number] 1955 Unknown [id number] [id number]. 727 1955 Unknown [id number] 2.16.840.1.749960.3.579.2. 727 1955 Unknown [id number] [id number]. 727 1955 Unknown [id number] 2.16.840.1.689267.3.579.2. 593 1955 Unknown [id number] 2.16.840.1.633403.3.579.2. 593 1955 Unknown [id number] 2.16.840.1.232773.3.579.2. 593 1955 Unknown [id number] 2.16.840.1.632000.3.579.2. 593 1955 Unknown [id number] 2.16.840.1.022869.3.579.2. 593 1955 Unknown [id number] 2.16.840.1.590597.3.579.2. 1259 Social History Date Type Detail Facility Tobacco smoking status Unknown if ever sm oked [facility] Other Start: 12-17-2024 Sex Assigned At Female N [facility] Other Tobacco smoking status No Smokin g Status Entered [facility] Start: 06-27-2023 [facility] End: 06-10-1989 History of [...] Sex assigned at Not on file [facility] Medical Equipment Procedure Code Equipment Code [...] heart). I will fax order over to [facility] for this and they should call [...] in office in about 2 weeks [facility] [facility] Miscellaneous Notes Please contact pt, I did speak with Er doctor about her case I am going to order a stress test and ECHO (US of her heart). I will fax order over to [facility] for this and they should call [...] 2 weeks LA documented in this encounter [facility] 12-17-2024 History of Presen t illness Narrative [...] BP. She was hospitalized last year in [place] due to possible stroke, it was not [...] the original note were not included. Anne Kepm is a 69 y.o. female presents with [...] BP. She was hospitalized last year in [place] due to possible stroke, it was not [...] is significant for CAD, hyperlipidemia, hypertension, early CT and sudden . SUBJECTIVE: MEDICATIONS: Current Outpatient [...] go be seen documented in this encounter [facility] 12-17-2024 Instructions Yaritza Mueller NP - 12/17/2024 [...] BP. She was hospitalized last year in [place] due to possible stroke, it was not [...] this morning- 10am documented in this encounter [facility] 12-14-2024 Telephone encounter Note Anne has scheduled an appointment with you on December 17, at 3:40 pm for a possible UTI. She wants to know if you would like her to have any testing done prior to her appointment. [phone]. [facility] 12-14-2024 Miscellaneous Notes Anne has scheduled an appointment with you on December 17, at 3:40 pm for a possible UTI. She wants to know if you would like her to have any testing done prior to her appointment. [phone]. documented in this encounter [facility] 09-26-2021 Note DATE OF ADMISSION: 0 09/19/2021 [...] see the chart. Franki Lee Dictated: 09/26/2021 [id number] Transcribed: 09/26/2021 [facility] Comment on above: Result Comment: Elec tronically [...] the physical therapy. Franki Lee Dictated: 09/21/2021 [id number] Transcribed: 09/21/2021 [facility] Comment on above: Result Comment: Elec tronically [...] made to ensure accuracy, however, inadvertently computerized bark press operator mistakes may be present. Extracted from: Title:Consult Note Author:KIMI KAURCHERTiffani Date:09/20/21 PLAN: 1. Status post total left [...] Note Author:Luis M Delgado CRNA Date:09/19/21 Plan [place] Society of Anesthesiologists (ASA) physical status classification: Class II. Anesthetic Preoperative Plan Anesthesia: Regional (Spinal, adductor canal left). Anesthetic plan, risks, benefits, and alternatives discussed with the patient and/or family. Patient verbalized understanding. [facility]04-14-2022 NoteDAILY PROGRESS NOTE: 09/20/2021 HISTORY: Anne is [...] have anybody athome and is really questioning longterm. We did explain the indication for longterm and the downside risk of longterm in the setting of revision knee arthroplasty. She does inquire about aides to help her otherwise. We will have discharge planning discuss further. Franki Lee Dictated: 09/20/2021 [id number] Transcribed: 09/20/2021[facility]:Result Comment: Electronically Signed By: Cas Severino DO\.caro\Date and Time Signed: 09/21/21 06:46 [id number] NoteReason for Consultation Medical management. History of [...] Oral, BID, PRN, Pre-arriva (more content not included)...[facility]:Result Comment: Electronically Signed By: Jewels DOMINGUEZ\.br\Date and Time Signed: 09/20/21 16:56 EDT\.br\Electronically Co-Signed By: Brijesh BARRETT MD\.br\Date and Time Co-Signed: 09/20/2216:58 [id number] Hospital Discharge instructions Patient Education 09/19/2021 19:46:32 Fall Prevention in the Home, Adult, Blyp-zb-Wqie Fall Prevention in the Home, Adult Falls [...] Keep items that you use often in bhgl-td-pfpfr places. Lower the shelves around your home [...] of the way. Do not use floor british virgin islander or wax that makes floors slippery. If [...] for Disease Control and PreventionRAKAN: https://cdc.gov National [place] on Aging: https://we5taau.bryson.nih.gov Contact a doctor if: You are afraid [...] 03/23/2010 Document Revised: 09/17/2019 Document Reviewed: 01/09/2018 [employer] Patient Education 2020 [employer]. 09/12/2021 07:12:58 [place] - Total Knee Arthroplasty. Revised 08/01/11. (Custom) [place], [place] [facility] DISCHARGE INSTRUCTIONS TOTAL KNEE [...] will continue at home, possible with the him assistant of Home Health Physical Therapy or [...] Drive FOLLOW-UP OFFICE VISIT: 4 weeks postop. Lavell. Pocos, DO [facility] [address] [place], [place] [address] Reviewed: 09-15 Revised 06/21 Follow Up Care 09/04/2021 15:44:18 With:Cas Severino Address: [address] [place] [address]- Business (1) When:10/18/2021 15:00:00 With:YARITZA MUELLER Address: [address] [place] [phone] [id number] Business (1) When: Unknown [facility]04-12-2022 NotePT Evaluation completed with an [facility] score of 16/24. Pt was able to perform bed mobility with Mod I and transfers with Min A. Pt was able to ambulate 10 feet with FWW and Min A. Will follow daily with recommendations to [facility] [id number] Evaluation note* Encounter Date Diagnosis Assessment Notes [...] diseases (ICD-10 - Z20.828) Covid test negative. [place] test performed per pt request, and that was also negative. See above tx plan. Apr, Other Additional time spent conducting pre-visit phone call, screening for symptoms, instructions on social distancing, application and removal of PPE, and cleaning of examination room, equipment and supplies was preformed. Patient education given for testing methodology and results. Patient care instructions given in writting by [facility] [place]NOTE 2] Care At Home document. [facility] Other Evaluation + Plan note Future Appointments Appointment Date:09/19/2021 11:30:00 AM Scheduled Provider: Location:[facility] App[facility] Diagnosis Encounter for annual wellness visit [...] severity unspecified (HCC) documented in this encounter [facility] HealthcareEvaluation note* Diagnosis Encounter for annual wellness [...] Mixed hyperlipidemia [facility] [...] mixed, current episode severity unspecified (HCC) Primary hypertension Unspecified essential hypertension [facility] [...] mixed, current episode severity unspecified (HCC) Primary hypertension Unspecified essential hypertension [facility] [...] Unspecified essential hypertension Chest pain in adult [facility] Narrative - Reported* Type Description Date Medical History Hypertension Medical History Hypothyroid Medical History Bipolar 1 disorder Medical History RA Medical History Arthritis Surgical History partial knee replacement Surgical History Uvulopalatopharyngoplasty Surgical History cholecystectomy Surgical History tonsillectomy and adenoidectomy Surgical History knee replacement Hospitalization History pyelonephritis 2009 [facility] Other Hospital course Narrative No data available for this section [facility] No data available for this section [facility] No data available for this section [facility] Summary Purpose Family History No Family History [...] section and content) DATE CREATED AUTHOR 05/18/2018 [facility] DATE CREATED AUTHOR AUTHOR'S ORGANIZ ATION 12/31/2019 [facility] DATE CREATED AUTHOR AUTHOR'S ORGANIZ ATION 07/12/2021 [facility] DATE CREATED AUTHOR AUTHOR'S ORGANIZ ATION 03/10/2022 [facility] [place] DATE CREATED AUTHOR AUTHOR'S ORGANIZ ATION 11/16/2022 [facility] DATE CREATED AUTHOR AUTHOR'S ORGANIZ ATION 12/21/2024 [facility] EPIC REASON FOR VISIT (unrecogniz ed section and content) Reason Comments UTI Reason Onset Date Comments Med Refill 01/06/2025 Care Team (unrecognized sect ion and content) Register Repairer Relationship Specialty Start Date End Date Dashawn Cummins MD [address] [place] [address] PCP - General Family Medicine 06/27/23 Yaritza Mueller NP [address] [place] [address] Referring Physician Nurse Practitioner 12/26/22 Yaritza Mueller NP [address] [place] [address] Nurse Practitioner Family Medicine 06/27/23 Register Repairer Relationship Specialty Start Date End Date Dashawn Cummins MD [address] [place] [address] PCP - General Family Medicine 06/27/23 Yaritza Mueller NP [address] [place] [address] Referring Physician Nurse Practitioner 12/26/22 Yaritza Mueller NP [address] [place] [address] Nurse Practitioner Family Medicine 06/27/23 Register Repairer Relationship Specialty Start Date End Date Dashawn Cummins MD [address] [place] [address] PCP - General Family Medicine 06/27/23 Yaritza Mueller NP [address] [place] [address] Referring Physician Nurse Practitioner 12/26/22 Yaritza Mueller NP [address] [place] [address] Nurse Practitioner Family Medicine 06/27/23 Register Repairer Relationship Specialty Start Date End Date Dashawn Cummins MD [address] [place] [address] PCP - General Family Medicine 06/27/23 Yaritza Mueller NP [address] [place] [address] Referring Physician Nurse Practitioner 12/26/22 Yaritza Mueller NP [address] [place] [address] Nurse Practitioner Family Medicine 06/27/23 Register Repairer Relationship Specialty Start Date End Date Dashawn Cummins MD [address] [place] [address] PCP - General Family Medicine 06/27/23 Yarizta Mueller NP [address] [place] [address] Referring Physician Nurse Practitioner 12/26/22 Yaritza Mueller NP [address] [place] [address] Nurse Practitioner Family Medicine 06/27/23 Register Repairer Relationship Specialty Start Date End Date Dashawn Cummins MD [address] [place] [address] PCP - General Family Medicine 06/27/23 Yaritza Mueller NP [address] [place] [address] Referring Physician Nurse Practitioner 12/26/22 Yaritza Mueller NP [address] [place] [address] Nurse Practitioner Family Medicine 06/27/23 Register Repairer Relationship Specialty Start Date End Date Dashawn Cummins MD [address] [place] [address] PCP - General Family Medicine 06/27/23 Yaritza Mueller NP [address] [place] [address] Referring Physician Nurse Practitioner 12/26/22 Yaritza Mueller NP [address] [place] [address] Nurse Practitioner Family Medicine 06/27/23 FOR RECORDS [...] BE BASED ON THE PRIMARY CLINICAL RECORDS. [employer] [facility]. provides no warranty or guarantee of the accuracy or completeness of information in this document.
[2025-02-06 12:56] LABS: Total Protein Urine Random <6.0 mg/dL (<=11.9)
[2025-02-06 13:05] LABS: Creatinine 24 Hour Urine 738.24 mg/24 hr (800.00-1800.00); Total Volume 24 Hour Urine 2400 mL/24hr
[2025-02-11 17:08] LABS: Aldosterone LCMS, Serum 5.4 ng/dL (0.0-30.0)
[2025-02-15 10:08] LABS: Renin Activity, Plasma 0.291 ng/mL/hr (0.167-5.380)
== END 2025-02-06 12:07 | disposition home or self-care (01) ==
PROVIDERS: PCP Nurse Practitioner; Visit Provider Internal Medicine Cardiovascular Disease
DX: R07.89 Other chest pain (principal); I11.9 Hypertensive heart disease without heart failure
CPT/HCPCS: 36415; 82088; 82570; 84156; 84244

== ENCOUNTER 2025-02-09 13:13 | Outpatient (OUT) | payer MEDICARE, OTHER, SELFPAY ==
--- OUTSIDE RECORDS SUMMARY | 2025-02-04 14:00 | XMS_ITS | Encounter Summary ---
Author Organization [facility] Address [address] [place] [address] Care Team Providers Care Clerical Order Filler Name Role Phone Dashawn Cummins MD Primary Care Provider [phone] Reason for Visit * Reason Comments left bundle branch block Hyperlipidemia Hypertension Sleep Apnea Chest Pain ACSTRO New Patient * Consultation (Routine) - Pending Review Specialty Diagnoses / Procedures Referred By Contgarfield olivares Referred To Contact Cardiology Diagnoses Primary hypertension Chest pain in adult Procedures CA OFFICE/OUTPATIENT NEW HIGH MDM 60 MINUTES [id number] (SNOMED CT) - AMB REFERRAL TO CARDIOLOGY Yaritza Mueller MD [address] [place] [address] Phone: tel: fax: Geraldo Mosley MD [address] [facility] [address] [place] [address] Phone: tel: fax: Referral ID Status Reason Start Date Expiration Date V isits Requested Visits Authorized [id number] Pending Review 01/12/2025 07/11/2025 1 1 Encounter Details Date Type Department Care Team (Late st Contact Info) Description 02/04/2025 2:00 PM EDT Office Visit [facility] [address] [place] [address] Francis Farris MD [address] [place] [phone] Primary hypertension (Primary Dx); Precordial pain; Shortness of breath Social History Tobacco Use Types Packs/Day Years Used Date Smoking Tobacco: Former Cigarettes Passive Smoke Exposure: Past Smokeless Tobacco: Never Tobacco Cessation:Counseling Given: Not Answered Alcohol Use Standard Drinks/Week Comments Not Currently 0 (1 standard drink = 0.6 oz pur e alcohol) [place] Safety & Environment Answer Date Rec orded Fear of Current or Ex-Partner Not on file Emotionally Abused Not on file 08/01/2023 Physically Abused Not on file 08/01/2023 Sexually Abused Not on file 08/01/2023 Physically or Sexually Abused Not on file Comments Unknown Sex and Gender Information Value Date Recorded Sex Assigned at Female 01/13/2025 11:18 AM EDT Legal Sex Female 11:03 PM EDT Gender Identity Female 01/13/2025 11:18 AM EDT Sexual Orientation Heterosexual or Straight 11/2024 11:18 AM EDT documented as of this encounter Last Filed Vital Signs Vital Sign Reading Time Taken Comments Blood Pressure 165/97 02/04/2025 1:55 PM EDT Pulse 56 02/04/2025 1:55 PM EDT Temperature - - Respiratory Rate - - Oxygen Saturation 94% 02/04/2025 1:55 PM EDT Inhaled Oxygen Concentration - - Weight 74.4 kg (164 lb) 02/04/2025 1:55 PM EDT Height 170.2 cm (5' 7 ) 02/04/2025 1:55 PM EDT Body Mass Index 25.69 02/04/2025 1:55 PM EDT documented in this encounter Progress Notes * Francis Farris MD - 02/04/2025 2:00 PM EDT Subjective Patient ID: Agatha Kemp is a 69 y.o. female who presents for left bundle branch block, Hyperlipidemia, Hypertension, Sleep Apnea, Chest Pain, CASTRO, and New Patient. Blood pressure crisis, recently at [facility] due to head and dizzy. LDL was 218 on admission. Gets episodes of really high blood pressure exhausted for a few days. High blood pressures 179/109,177/112. 175/102. Takes BP medications A lot of pressure in the chest and short of breath, now down from several miles per day of walking to not too much. Chest pain tight and heavy, sometimes sharp pains associated with SOB. Non radiating, no relieving or aggrevating factors. Rest over several days I feel better I don't have a good family history Father had heart disease Not routinely taking NSAIDS Takes electrolytes and sodium has been low Body Health perfect amino electrolytes 2 scoops a day = 600 mg sodium Tried lithium at one point, only a few weeks Hyperlipidemia Associated symptoms include chest pain and shortness of breath. Hypertension Associated symptoms include chest pain and shortness of breath. Chest Pain Associated symptoms include shortness of breath. Her past medical history is significant for hyperlipidemia. Review of Systems Respiratory: Positive for chest tightness and shortness of breath. Negative for wheezing. Cardiovascular: Positive for chest pain. Negative for leg swelling. Objective Visit Vitals BP (!) 165/97 (BP Location: Left arm, Patient Position: Sitting) Pulse 56 Physical Exam Constitutional: Appearance: Normal appearance. She is normal weight. HENT: Head: Normocephalic and atraumatic. Cardiovascular: Rate and Rhythm: Normal rate and regular rhythm. Pulses: Carotid pulses are 2+ on the right side and 2+ on the left side. Radial pulses are 2+ on the right side and 2+ on the left side. Dorsalis pedis pulses are 2+ on the right side and 2+ on the left side. Posterior tibial pulses are 2+ on the right side and 2+ on the left side. Heart sounds: Normal heart sounds. No murmur heard. No friction rub. No gallop. Pulmonary: Effort: Pulmonary effort is normal. Breath sounds: Normal breath sounds. Abdominal: Palpations: Abdomen is soft. Musculoskeletal: Right lower leg: No edema. Left lower leg: No edema. Skin: General: Skin is warm and dry. Neurological: General: No focal deficit present. Mental Status: She is alert and oriented to person, place, and time. Mental status is at baseline. Psychiatric: Mood and Affect: Mood normal. Behavior: Behavior normal. Thought Content: Thought content normal. Judgment: Judgment normal. Stress test 01/01 negative for ischemia EKG strips 12/17/24 reviewed by me: LBBB Echo 12/23/24 normal LV function and wall thickness Assessment/Plan Mrs. Kemp has poorly controlled hypertension with symptoms of sob and chest pain. Her recent evaluation includes a normal stress, echo and EKG only shows LBBB. Given severity of BP recommend CTA ofchest to evaluate aorta, and will check urine protein/cr ratio and plasma ambrose/renin. In interim add aldactone 25 daily to see if BP control improves and check BMP in a week for Na, K and cr. Diagnosis Plan 1. Primary hypertension 2. Precordial pain 3. Shortness of breath No orders of the defined types were placed in this encounter. No results found for this or any previous visit (from the past 36 hours). Follow up in about 4 weeks (around 03/04/2025). documented in this encounter Plan of Treatment Upcoming Encounters Date Type Department Care Team (Late st Contact Info) Description 03/10/2025 1:40 PM EDT Office Visit [facility] [address] [place] [address] Francis Farris MD [address] [place] [phone] documented as of this encounter Visit Diagnoses Diagnosis Primary hypertension- Primary Unspecified essential hypertension Precordial pain Shortness of breath documented in this encounter Care Teams Clerical Order Filler Relationship Specialty Start Date End Date Dashawn Cummins MD [address] [place] [address] PCP - General Family Medicine 01/13/25 documented as of this encounter
--- OUTSIDE RECORDS SUMMARY | 2025-02-09 13:17 | XMS_ITS | Encounter Summary ---
Author Organization [facility] Address [address] [place] [address] Care Team Providers Care Asbestos Cloth Inspector Name Role Phone Bakari Greene Primary Care Provider [phone] Source Comments In the event this information is protected by the Federal Confidentiality of Alcohol and Drug AbusePatient Records regulations: The Federal rules restrict any use of the information to criminally investigate or prosecute any alcohol or drug abuse patient.[facility] Encounter Details Date Type Department Care Team (Late st Contact Info) Description 04/03/2018 Abstract Hematology/Oncology [address] [place] [address] Victoriano Moreland [address] [place] [address] Social History Tobacco Use Types Packs/Day Years [...] on filedocumented in this encounter Care Teams Asbestos Cloth Inspector Relationship Specialty Start Date End Date Bakari Greene DO PCP - General Family Medicine 03/20/18 documented as of this encounter
--- OUTSIDE RECORDS SUMMARY | 2025-02-09 13:17 | XMS_ITS | Clinical Summary ---
Author Organization [facility] Address [address] [place] [address] Care Team Providers Care Stripper Soft Plastic Name Role Phone Bakari Greene Floyd Primary [...] Screening 11/15/2015 11/14/2012 Bone Density Screening 2020 Advance Directive Discussion 06/10/2024 Influenza Vaccine (#1) [...] EDT) Glucose 91 74 - 106 mg/dL [facility] BUN 11 7 - 17 mg/dL [facility] Creatinine 0.71 0.52 - 1.04 mg/dL [facility] eGFR-All Other Races >60 >60 mL/min/1.7 3 2 [facility] eGFR- >60 >60 mL/min/1.7 3 2 [facility] Comment:MDRD calculation use d for eGFR results. Sodium 136(L) 137 - 145 mmol/L [facility] Potassium 4.1 3.5 - 5.1 mmol/L [facility] Chloride 98 98 - 107 mmol/L [facility] CO2 26 22 - 30 mmol/L [facility] Anion Gap 16(H) 0 - 15 [facility] AST 33 14 - 36 U/L [facility] ALT 20 9 - 52 U/L [facility] Alkaline Phosphatase 121 38 - 125 U/L [facility] Bilirubin, Total 0.4 0.2 - 1.3 mg/dL [facility] Calcium 9.9 8.4 - 10.2 mg/dL [facility] Protein, Total 8.1 6.2 - 8.2 g/dL [facility] Albumin 4.7 3.5 - 5.0 g/dL [facility] Blood specimen (specimen) BLOOD SPECIMEN / Unknown 11/14/2012 8:40 PM EDT 11/14/2012 8:51 PM EDT us Wyatt May MD LABORATORY Final Result Performing Organization Address City/State/[facility] Co de Phone Number [facility] [place] [address] * COLONOSCOPY (05/06/2007 1:17 PM EST) Slab Lifting Supervisor Introduction: A presents for an elective outpatient Colonoscopy. The patient was seen at [place] [address] . Indications: Screening for personal history of [...] cecum, confirmed by appendiceal orifice, cecal strap ([place]'s foot), and ileocecal valve. The scope was [...] Normal colonoscopy (45.23). Performed By: Procedure Codes: [facility] 05/06/2007 1:17 PM EST Narrative [facility] - 05/06/2007 4:38 PM EST Ordered by an unspecified provider. us [facility] Provider SCHEDULED PROCEDURES Final Resul t [facility] [address] [place] [address] from Last 3 Months or Most Recently Relevant to Health Maintenance Insurance MEDICARE Care Teams Stripper Soft Plastic Relationship Specialty Start Date End Date Bakari Greene DO PCP - General Family Medicine 03/20/18
--- OUTSIDE RECORDS SUMMARY | 2025-02-09 13:17 | XMS_ITS | Encounter Summary ---
Author Organization [facility] Address [address] [place] [address] Care Team Providers Care Component Technician Name Role Phone Yaritza Mueller MANAGER OPERATIONAL Unavailable [phone] Dashawn Cummins MD Primary Care Provider [phone] Yaritza Mueller MANAGER OPERATIONAL Unavailable [phone] Encounter Details Date Type Department Care Team (Late st Contact Info) Description 12/17/2024 Orders Only [facility] [address] [place] [address] Willard Calvo MD [address] [place] [address] Social History Tobacco Use Types Packs/Day Years [...] Procedure Name Priority Date/Time Associated Diagnosis Comments CT HEAD/BRAIN W & WO CONTRAST Routine 12/17/2024 2:15 PM EDT XR CHEST 1 VIEW Routine 12/17/2024 2:14 PM EDT documented in this encounter Results * CT HEAD/BRAIN W & WO CONTRAST (12/17/2024 2:15 PM EDT) Anatomical Region Laterality Modality Radiographic Nuha ging Willard Calvo MD IMG XR PROCEDURES Final Resul t * XR chest 1 view (12/17/2024 2:14 PM EDT) Anatomical Region Laterality Modality Chest Radiographic Nuha ging Willard Calvo MD IMG XR PROCEDURES Final Resul t documented in this encounter Visit Diagnoses Not on filedocumented in this encounter Care Teams Component Technician Relationship Specialty Start Date End Date Dashawn Cummins MD PCP - General Family Medicine 06/27/23 Yaritza Mueller NP Referring Physician Nurse Practitioner 12/26/22 Yaritza Mueller NP Nurse Practitioner Family Medicine 06/27/23 documented as of this encounter
--- OUTSIDE RECORDS SUMMARY | 2025-02-09 13:17 | XMS_ITS | Encounter Summary ---
Author Organization [facility] Address [address] [place] [address] Care Team Providers Care Ladle Cleaner Name Role Phone Bakari Greene DO Primary Care Provider [phone] Source Comments In the event this information is protected by the Federal Confidentiality of Alcohol and Drug AbusePatient Records regulations: The Federal rules restrict any use of the information to criminally investigate or prosecute any alcohol or drug abuse patient.[facility] Encounter Details Date Type Department Care [...] on filedocumented in this encounter Care Teams Ladle Cleaner Relationship Specialty Start Date End Date Bakari Greene DO PCP - General Family Medicine 03/20/18 documented as of this encounter
--- OUTSIDE RECORDS SUMMARY | 2025-02-09 13:17 | XMS_ITS | Encounter Summary ---
Author Organization [facility] Address [address] [place] [address] Care Team Providers Care Reporting Process Consultant Name Role Phone Yaritza Mueller MANAGER DRILLING Unavailable [phone] Dashawn Cummins MD Primary Care Provider Yaritza Mueller MANAGER DRILLING Unavailable [phone] Encounter Details Date Type Department Care Team (Late st Contact Info) Description 12/17/2024 Abstract [facility] [address] [place] [address] Yaritza Mueller NP [address] [place] [address] Social History Tobacco Use Types Packs/Day Years [...] on filedocumented in this encounter Care Teams Reporting Process Consultant Relationship Specialty Start Date End Date Dashawn Cummins MD PCP - General Family Medicine 06/27/23 Yaritza Mueller NP Referring Physician Nurse Practitioner 12/26/22 Yaritza Mueller NP Nurse Practitioner Family Medicine 06/27/23 documented as of this encounter
--- OUTSIDE RECORDS SUMMARY | 2025-02-09 13:17 | XMS_ITS | Encounter Summary ---
Author Organization [facility] Address [address] [place] [address] Care Team Providers Care Canine Enforcement Officer Name Role Phone Yaritza Mueller RAIL BENDER Unavailable [phone] Dashawn Cummins MD Primary Care Provider [phone] Yaritza Mueller RAIL BENDER Unavailable [phone] Encounter Details Date Type Department Care Team (Late st Contact Info) Description 12/28/2024 Abstract [facility] [address] [place] [address] Yaritza Mueller NP [address] [place] [address] Social History Tobacco Use Types Packs/Day Years [...] on filedocumented in this encounter Care Teams Canine Enforcement Officer Relationship Specialty Start Date End Date Dashawn Cummins MD PCP - General Family Medicine 06/27/23 Yaritza Mueller NP Referring Physician Nurse Practitioner 12/26/22 Yaritza Mueller NP Nurse Practitioner Family Medicine 06/27/23 documented as of this encounter
--- OUTSIDE RECORDS SUMMARY | 2025-02-09 13:18 | XMS_ITS | Encounter Summary ---
Author Organization [facility] Address [address] [place] [address] Care Team Providers Care Device Engineer Name Role Phone Dashawn Cummins MD Primary Care Provider [phone] Yaritza Mueller OYSTER PICKER Unavailable [phone] Dashawn Cummins MD Primary Care Provider [phone] Yaritza Mueller [place] PICKER Unavailable [phone] Encounter Details Date Type Department Care Team (Late st Contact Info) Description 05/23/2023 Abstract [facility] [address] [place] [address] Sedrick Cruz MD [address] [place] [address] Social History Tobacco Use Types Packs/Day [...] on filedocumented in this encounter Care Teams Device Engineer Relationship Specialty Start Date End Date Dashawn Cummins MD PCP - General Family Medicine 12/26/22 06/26/23 Dashawn Cummins MD PCP - General Family Medicine 06/27/23 Yaritza Mueller NP Referring Physician Nurse Practitioner 12/26/22 Yaritza Meuller NP Nurse Practitioner Family Medicine 06/27/23 documented as of this encounter
--- OUTSIDE RECORDS SUMMARY | 2025-02-09 13:18 | XMS_ITS | Clinical Summary ---
Author Organization [facility] Address [address] [place] [address] Care Team Providers Care Stapler Hand Name Role Phone Dashawn Cummins MD Primary Care Provider [phone] Allergies Active Allergy Reactions Criticality Noted Date Comments Codeine Unknown High 04/21/2007 Penicillins Hives High 04/21/2007 Medications ezetimibe (Zetia) 10 mg tablet Take 10 mg by mouth in the morning. 09/24/2024 Active losartan (Cozaar) 50 mg tablet Take 50 mg by mouth twice a day. 01/06/2025 04/06/20 25 Active metoprolol tartrate (Lopressor) 50 mg tablet Take 75 mg by mouth twice a day. 08/06/2024 04/06/20 25 Active QUEtiapine (SeroqueL) 100 mg tablet Take 100 mg by mouth at bedtime. 01/15/2018 Active venlafaxine XR (Effexor-XR) 150 mg 24 hr capsule Take 150 mg by mouth in the morning. 03/06/2018 Active lamoTRIgine (LaMICtal) 200 mg tablet Take 200 mg by mouth every 12 (twelve) hours. 03/06/2018 Active spironolactone (Aldactone) 25 mg tabletIndications :Primary hypertension Take 1 tablet (25 mg) by mouth in the morning. 30 tablet 11 02/04/2025 02/05/20 26 Active Active Problems Problem Noted Date Diagnosed Date Cerebral microvascular disease 08/22/2024 History of traumatic brain injury 08/22/2024 Confusion 08/21/2024 Unsteady gait 08/21/2024 Bipolar disorder 12/30/2023 COPD (chronic obstructive pulmonary disease) Overview (02/04/2025): Last Assessment & Plan: Referral to pulmonology for evaluation and treatment. Primary osteoarthritis of left knee 12/30/2023 Rheumatoid arthritis 12/30/2023 Overview (02/04/2025): Primarily in hands feet and shoulders. Anemia 06/27/2023 BMI 25.0-25.9,adult 06/27/2023 Encounter for annual wellnes s visit (AWV) in Medicare patient 06/27/2023 Hyponatremia 06/27/2023 Hypothyroidism (acquired) 06/12/2023 Primary hypertension 06/09/2023 Chest pain in adult 03/08/2021 Dyspnea on exertion 03/08/2021 Left bundle branch block 03/08/2021 Dyspnea and respiratory abnormalities 04/03/2018 Pulmonary nodule 04/03/2018 Mixed hyperlipidemia 02/09/2014 Polyp of nasal sinus 12/10/2013 Obstructive sleep apnea syndrome 02/24/2013 Encounters Date Type Department Care Team Description 02/04/2025 2:00 PM EDT Office Visit [facility] [address] [place] [address] Francis Farris MD Primary hypertension (Primary Dx); Precordial pain; Shortness of breath 02/04/2025 Orders Only [facility] [address] [place] [address] [place] Juarez MA 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) 02/04/2025 Orders Only [facility] [address] [place] [address] [place] Juarez MA Other chest pain (Primary Dx); Benign hypertensive heart disease without congestive heart failure from Last 3 Months Family History Medical History Relation Name Comments Heart attack Father Multiple sclerosis Mother Relation Name Status Comments Father Mother Social History Tobacco Use Types Packs/Day Years [...] Heterosexual or Straight 11/2024 11:18 AM EDT Last Filed Vital Signs Vital Sign Reading [...] Mass Index 25.69 02/04/2025 1:55 PM EDT Plan of Treatment Upcoming Encounters Date Type Department Care Team (Late st Contact Info) Description 03/10/2025 1:40 PM EDT Office Visit [facility] [address] [place] [address] Farncis Farris MD [address] [place] [address] Health Maintenance Due Date Last Done Comments CT Colonography 1955 Colonoscopy 1955 FOBT 1955 Medicare Annual Wellness (AWV) 1955 Sigmoidoscopy 1955 Depression Screening 1967 Pneumococcal Vaccine: 50+ Years (1 of 2 - PCV) 1974 Adult Tetanus 1977 Zoster Vaccines (1 of 2) 2005 Fall Risk Screening 2020 FIT 07/04/2024 07/04/2023 COVID-19 Vaccine (1 - 2023-2 5 season) 2025 Influenza Vaccine (#1) 2025 Mammogram 12/03/2025 12/04/2023 Colorectal Cancer Screening 07/04/2026 FIT-DNA 07/04/2026 07/04/2023, 2019 HIB Vaccines Aged Out No longer eligi ble based on patient's age to complete this topic HPV Vaccines Aged Out No longer eligi ble based on patient's age to complete this topic IPV Vaccines Aged Out No longer eligi ble based on patient's age to complete this topic Meningococcal B Vaccine Aged Out No l onger eligible based on patient's age to complete this topic Meningococcal Vaccine Aged Out No mariela mamta eligible based on patient's age to complete this topic Rotavirus Vaccines Aged Out No longer eligible based on patient's age to complete this topic Insurance [employer] Care Teams Stapler Hand Relationship Specialty Start Date End Date Dashawn Cummins MD [address] [address] PCP - General Family Medicine 01/13/25
--- OUTSIDE RECORDS SUMMARY | 2025-02-09 13:18 | XMS_ITS | Encounter Summary ---
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) Social History Tobacco Use Types Packs/Day Years Used Date Smoking Tobacco: Former Cigarettes Passive Smoke Exposure: Past Smokeless Tobacco: Never Alcohol Use Standard Drinks/Week Comments Not Currently 0 (1 standard drink = 0.6 oz pur e alcohol) [place] Safety & Environment Answer Date Rec orded [...] AM EDT documented as of this encounter Plan of Treatment Upcoming Encounters Date Type Department Care Team (Late st Contact Info) Description 03/10/2025 1:40 PM EDT Office Visit [facility] [address] [place] [address] Francis Farris MD [address] [place] [address] Scheduled Orders Name Type Priority Associated Diagnoses Orde r Schedule Creatinine, Serum Lab Routine Benign hypertensive heart disease without congestive heart failure Expected: 02/04/2025 (Approximate), Expires: 02/04/2026 documented as of this encounter Visit Diagnoses Diagnosis Benign hypertensive heart disease without congestive heart failure- Primary Benign hypertensive heart disease without heart failure documented in this encounter Care Teams Environmental Issues Instructor Relationship Specialty Start Date End Date Dashawn Cummins MD [address] [facility] [place] [address] PCP - General Family Medicine 01/13/25 documented as of this encounter
--- OUTSIDE RECORDS SUMMARY | 2025-02-09 13:18 | XMS_ITS | Encounter Summary ---
Author Organization [facility] Address [address] [place] [address] Care Team Providers Care Long Distance Billing Operator Name Role Phone Dashawn Cummins MD Primary Care Provider [phone] Yaritza Mueller NP Unavailable [phone] Dashawn Cummins MD Primary Care Provider [phone] Yaritza Mueller NP Unavailable [phone] Encounter Details Date Type Department Care [...] EST Narrative 05/23/2023 12:39 PM EST The [address] [address] XRay Report Signed Patient: Anne Mcfadden MR#: [id number] : 1955 Acct:[id number] Age/Sex: 68 / F ADM Date: Loc: ER Attending Dr: Ordering Physician: Salas Cruz Date of Service: 05/23/23 Procedure(s): XR chest 1V Accession Number(s): [id number] cc: Yaritza Mueller NP; Salas Cruz [address] [address] Patient Name: ANNE MCFADDEN MRN: [facility]:[id number] date: 1955 Sex: F Assigned Patient Location: ER Current Patient Location: ER Accession/Order Number: [id number] Exam Date: 05/23/2023 12:12 Report Date: 05/23/2023 [...] Signed By: 05/23/23 1239 DD/ 1236 TD/TT: Basketball Scout: Procedure Note Radiology, Radiologist, MD - 05/23/2023 [place] [address] XRay Report Signed Patient: Anne Mcfadden LMR#: [id number] : 5Acct:[id number] Age/Sex: 68 / FADM Date: Loc: ER Attending Dr: Ordering Physician: Salas Cruz Date of Service: 05/23/23 Procedure(s): XR chest 1V Accession Number(s): [id number] cc: Yaritza Mueller NP; Salas Cruz The [address] [address] Patient Name: ANNE MCFADDEN MRN: [id number] date: 1955 Sex: F Assigned Patient Location: ER Current Patient Location: ER Accession/Order Number: [id number] Exam Date: 05/23/2023 12:12 Report Date: 05/23/2023 [...] M.D. Signed By:05/23/23 1239 DD/ 1236 TD/TT: Basketball Scout: Generic External Data Provider [facility] Final Result documented in this encounter Visit Diagnoses Not on filedocumented in this encounter Care Teams Long Distance Billing Operator Relationship Specialty Start Date End Date Dashawn Cummins MD PCP - General Family Medicine 12/26/22 06/26/23 Dashawn Cummins MD PCP - General Family Medicine 06/27/23 Yaritza Mueller NP Referring Physician Nurse Practitioner 12/26/22 Yaritza Mueller NP Nurse Practitioner Family Medicine 06/27/23 documented as of this encounter
--- OUTSIDE RECORDS SUMMARY | 2025-02-09 13:18 | XMS_ITS | Encounter Summary ---
Author Organization [facility] Address [address] [place] [address] Care Team Providers Care Manuscripts Curator Name Role Phone Dashawn Cummins MD Primary Care Provider [phone] Reason for Referral * Imaging (Routine) - Pending Review Specialty Diagnoses / Procedures Referred By Contac t Referred To Contact Radiology Diagnoses Other chest pain Benign hypertensive heart disease without congestive heart failure Procedures CTA Chest W IV Contrast Francis Farris MD [address] [place] [address] Phone: tel: fax: Referral ID Status Reason Start Date Expiration Date V isits Requested Visits Authorized [id number] Pending Review 02/04/2025 02/04/2026 1 1 Encounter Details Date Type Department Care Team (Late st Contact Info) Description 02/04/2025 Orders Only [facility] [address] [place] [address] Ann, [place], [place] Other chest pain (Primary Dx); Benign hypertensive heart disease without congestive heart failure Social History Tobacco Use Types Packs/Day Years [...] Description 03/10/2025 1:40 PM EDT Office Visit [facility] [address] [place] [address] Francis Farris MD [address] [place] [address] Scheduled Orders Name Type Priority Associated Diagnoses Orde r Schedule CTA Chest W IV Contrast Imaging Routine Other chest pain Benign hypertensive heart disease without congestive heart failure Expected: 02/04/2025, Expires: 02/04/2026 Protein, urine, random Lab Routine Other chest pain Benign hypertensive heart disease without congestive heart failure Expected: 02/04/2025 (Approximate), Expires: 02/04/2026 Aldosterone Lab Routine Other chest pain Benign hypertensive heart disease without congestive heart failure Expected: 02/04/2025 (Approximate), Expires: 02/04/2026 Renin activity Lab Routine Other chest pain Benign hypertensive heart disease without congestive heart failure Expected: 02/04/2025 (Approximate), Expires: 02/04/2026 Creatinine, urine, 24 hour Lab Routine Other chest pain Benign hypertensive heart disease without congestive heart failure Expected: 02/04/2025 (Approximate), Expires: 02/04/2026 documented as of this encounter Visit Diagnoses Diagnosis Other chest pain- Primary Benign hypertensive 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
--- OUTSIDE RECORDS SUMMARY | 2025-02-09 13:18 | XMS_ITS | Clinical Summary ---
Author Organization [facility] Address [address] [place] [address] Care Team Providers Care Digital Account Executive Name Role Phone Yaritza Mueller NP Unavailable [phone] Dashawn Cummins MD Primary Care Provider [phone] Yaritza Mueller ASSISTANT PRODUCER Unavailable [phone] Allergies Active Allergy Reactions Criticality Noted Date Comments Codeine 06/27/2023 Penicillins 06/27/2023 Medications LaMICtal 200 MG tablet Take 200 mg by mouth every 12 (twelve) hours Active venlafaxine XR (Effexor XR) 150 MG 24 hr capsule Take 150 mg by mouth in the morning. Active SEROquel 100 MG tablet Take 100 mg by mouth at bedtime Active hydroxychloroquin e (Plaquenil) 200 MG tablet Take 200 mg by mouth Daily 4 Active ezetimibe (Zetia) 10 MG tablet Take 10 mg by mouth Daily 5 Active folic acid (Folvite) 1 MG tablet Take 1 mg by mouth Daily 5 Active Methotrexate, PF, 10 MG/0.4ML solution auto-injector Inject under the skin Active metoprolol tartrate (Lopressor) 50 MG tabletIndications :Primary hypertension Take 1.5 tablets (75 mg) by mouth in the morning and 1.5 tablets (75 mg) before bedtime. 270 tablet 5 04/06/20 25 Active losartan (Cozaar) 50 MG tabletIndications :Primary hypertension Take 1 tablet (50 mg) by mouth in the morning and 1 tablet (50 mg) before bedtime. 180 tablet 04/06/20 25 Active Active Problems Problem Noted Date Diagnosed Date Chest pain in adult 12/17/2024 Assessment & Plan (12/17/2024 12:59 PM EDT): Risk factors; post menopause, HTN, HLD, family hx CAD Will have pt seen in ER for evaluation DD: CAD, related to BP, anxiety? Verbalized understanding and will go be seen Primary osteoarthritis of left knee 12/30/2023 Rheumatoid arthritis 12/30/2023 Overview (12/30/2023): Primarily in hands feet and shoulders. Last Assessment & Plan: Referral to rheumatology and refilled Plaquenil current dose Bipolar disorder 12/30/2023 Assessment & Plan (12/17/2024 12:57 PM EDT): Compliant on meds COPD (chronic obstructive pulmonary disease) Overview (12/30/2023): [...] 06/12/2023 Primary hypertension 06/09/2023 Assessment & Plan (12/17/2024 12:57 PM EDT): Please check blood pressure daily and record DASH diet Limit caffeine Take medication as directed Contact office if chest pain, pressure, dizziness, shortness of breath, swelling legs Recommend slow position changes Meds: losartan, b esau Assessment & Plan (06/27/2023 5:51 PM EST): Stable at this time, continue current meds Reviewed labs Pulmonary nodule 04/03/2018 Mixed hyperlipidemia 02/09/2014 Assessment & Plan (12/17/2024 12:57 PM EDT): On zetia Cannot tolerate statins Check labs yearly and prn dose changes Polyp of nasal sinus 12/10/2013 Obstructive sleep apnea syndrome 02/24/2013 Resolved Problems Problem Noted Date Diagnosed Date Resolved Date Bipolar affective disorder in remission 06/27/2023 06/27/2023 Bipolar disorder, current episode mixed, mild 06/27/19 24 12/17/2024 Assessment & Plan (06/27/2023 5:54 PM EST): Continue w dr brunner Encounters Date Type Department Care Team Description 01/12/2025 [facility] Only [facility] [address] [place] [phone] Yaritza Mueller NP Primary hypertension (Primary Dx); Chest pain in adult 01/12/2025 [address]phone [facility] [address] [place] [phone] Yaritza Mueller NP 01/06/2025 Refill [facility] [address] [place] [address] Yaritza Mueller, WOLF Primary hypertension 01/05/2025 Refill [facility] [address] [place] [address] Yaritza Mueller, WOLF Primary hypertension 01/05/2025 Telephone [facility] [address] [place] [address] Yaritza Mueller, WOLF Referral 12/28/2024 Abstract [facility] [address] [place] [phone] Yaritza Mueller, WOLF 12/27/2024 Clinisync Result Encounter [facility] External Department Unsolicited Yaritza Mueller NP 12/23/2024 Clinisync Result Encounter [facility] External Department Unsolicited Yaritza Mueller NP 12/17/2024 11:30 AM EDT Office Visit [facility] [address] [place] [phone] Yaritza Mueller, WOLF Chest pain in adult (Primary Dx); Primary hypertension ; Mixed hyperlipidemia ; Bipolar affective disorder, current episode mixed, current episode severity unspecified (HCC) 12/17/2024 Telephone [facility] [address] [place] [address] Yaritza Mueller NP 12/17/2024 Orders Only [facility] [address] [place] [address] Yaritza Mueller, WOLF Primary hypertension (Primary Dx); Chest pain in adult; Mixed hyperlipidemia 12/17/2024 Abstract [facility] [address] [place] [phone] Yaritza Mueller NP 12/17/2024 Orders Only [facility] [address] [place] [phone] Willard Calvo MD 12/14/2024 Telephone [facility] [address] [place] [phone] Yaritza Mueller NP 12/14/2024 Telephone [facility] [address] [place] [address] Yaritza Mueller NP from Last 3 Months [...] ars (1 of 2 - PCV) 1974 Mammogram 12/03/2024 12/04/2023, 06/11/2023, 10/26/2022 Medicare Annual Wellness (AWV) 08/06/2025 08/06/2024 , 06/27/2023 Colorectal Cancer Screening 07/04/2026 FIT-DNA 07/04/2026 07/04/2023, 03/10, 2019 Influenza Vaccine Discontinued Procedures Procedure Name Priority Date/Time Associated Diagnosis Comments NM ADOLFO PERF SPECT REST STR 12/27/2024 6:41 PM EDT CA ECHO DOPPLER COMPLETE 12/23/2024 6:20 PM EDT ECHOCARDIOGRAM 2D COMPLETE Routine 12/22/2024 1:20 PM EDT Primary hypertension Chest pain in adult CT HEAD/BRAIN W & WO CONTRAST Routine 12/17/2024 2:15 PM EDT XR CHEST 1 VIEW Routine 12/17/2024 2:14 PM EDT LAB COLOGUARD COLON CANCER SCREEN Routine 07/04/2023 12:00 PM EST Screening for colon cancer from Last 3 Months or Most Recently Relevant to Health Maintenance Results * NM ADOLFO PERF SPECT REST STR (12/27/2024 6:41 PM EDT) Anatomical Region Laterality Modality Other 12/27/2024 6:41 PM EDT Narrative 12/27/2024 6:42 [place] [address] Nuclear Medicine Report Signed Patient: ANNE KEMP MR#: [id number] : 1955 Acct:[id number] Age/Sex: 69 / F ADM Date: 12/25/24 Loc: [place] Attending Dr: Yaritza Mueller NP Ordering Physician: Yaritza Mueller NP Date of Service: 12/25/24 Procedure(s): NM adolfo perf SPECT rest str Accession Number(s): [id number] cc: Yaritza Mueller NP Patient Name: ANNE KEMP MR#: [id number] : 1955 Exam Date: 12/25/2024 Ordering Doctor: MATT MUELLER CNP RADIOLOGY REPORT PROCEDURE: NM ADOLFO PERF SPECT REST STR COMPARISON: None. INDICATIONS: [...] the study was pending per attending physician [facility] . For more details please see separate [...] M.D. Signed By: 12/27/241841 DD/ 40 TD/TT: Leadership Development Consultant: Procedure Note Radiology, Radiologist, - 12/27/2024 [place] [address] Nuclear Medicine Report Signed Patient: ANNE KEMP LMR#: [id number] : 5Acct:[id number] Age/Sex: 69 / FADM Date: 12/25/24 Loc: HUGO Attending Dr: Yaritza Mueller ASSISTANT PRODUCER Ordering Physician: Yaritza Mueller NP Date of Service: 12/25/24 Procedure(s): NM adolfo perf SPECT rest str Accession Number(s): [id number] cc: Yaritza Mueller NP Patient Name: ANNE KEMP MR#: [id number] : 1955 Exam Date: 12/25/2024 Ordering Doctor: MATT MUELLER CNP RADIOLOGY REPORT PROCEDURE: NM ADOLFO PERF SPECT REST STR COMPARISON: None. INDICATIONS: [...] the study was pending per attending physician [facility] . For more details pleasesee separate cardiac stress test report. FINDINGS: QUALITY [...] 18:41 Dictated By: Janet Rebollar M.D. Signed By:12/27/241841 DD/ 40 TD/TT: Leadership Development Consultant: us Yaritza Mueller NP [facility] Final Result * CA ECHO DOPPLER COMPLETE (12/23/2024 6:20 PM EDT) Anatomical Region Laterality Modality Other 12/23/2024 6:20 PM EDT Narrative 12/23/2024 6:21 PM EDT The [address] [address] Cardiology Report Signed Patient: ANNE KEMP MR#: [id number] : 1955 Acct:[id number] Age/Sex: 69 / F ADM Date: 12/23/24 Loc: CARD Attending Dr: Yaritza Mueller NP Ordering Physician: Yaritza Mueller NP Date of Service: 12/23/24 Procedure(s): CA echo doppler complete Accession Number(s): [id number] cc: Yaritza Mueller NP Patient Name: ANNE KEMP MR#: [id number] : 1955 Exam Date: 12/23/2024 Ordering Doctor: [...] Area (VTI): 2.36 cm2, 2.36 cm2 Deceleration [place]: Pressure Half-Time: Peak Velocity(Antegrade Flow): 1.23 m/s [...] M.D. Signed By: 12/23/241820 DD/ 19 TD/TT: Leadership Development Consultant: Procedure Note Radiology, Radiologist, MD - 12/23/2024 [place] [address] Cardiology Report Signed Patient: ANNE KEMP LMR#: [id number] : 5Acct:[id number] Age/Sex: 69 / FADM Date: 12/23/24 Loc: CARD Attending Dr: Yaritza Mueller NP Ordering Physician: Yaritza Mueller NP Date of Service: 12/23/24 Procedure(s): CA echo doppler complete Accession Number(s): [id number] cc: Yaritza Mueller NP Patient Name: ANNE KEMP MR#: [id number] : 1955 Exam Date: 12/23/2024 Ordering Doctor: MATT MUELLER CNP ECHOCARDIOGRAM REPORT PROCEDURE: CA ECHO DOPPLER COMPLETE INDICATIONS: Chest pain, dyspnea, hypertension COMPARISON: None. DESCRIPTION: COMPLETE ECHOCARDIOGRAM Real-time transthoracic echocardiography with 2D, M-mode, spectral and color flow Dopplerperformed. QUALITY: Technical quality was good. LEFT VENTRICLE: [...] RIGHT VENTRICLE: Normal chamber size. Normal right ventricularsystolic function. TRICUSPID VALVE: Normal mobility and thickness. No stenosis with mild regurgitation. No evidence of pulmonary hypertension. RVSP 31 mmHg MITRAL VALVE: Normal mobility and thickness. No evidence of mitralvalve stenosis. Mild mitral annular calcification. Mild mitral regurgitation. AORTIC VALVE: Normal trileaflet appearance. Mildly calcified aorticvalve. Normal leaflet mobility. No evidence of aortic valve stenosis. No aortic regurgitation. AORTIC ROOT: Normal diameter and appearance. Ascending aorta is normalin size. PULMONIC VALVE: Normal thickness and mobility. [...] Area (VTI): 2.36 cm2, 2.36 cm2 Deceleration [place]: Pressure Half-Time: Peak Velocity(Antegrade Flow): 1.23 m/s [...] By: Magi De La Cruz M.D. Signed By:12/23/241820 DD/ 19 TD/TT: Leadership Development Consultant: Yaritza Mueller NP [facility] Final Result * Echocardiogram 2D complete (12/22/2024 1:20 PM EDT) Yaritza Mueller NP CV ECHO PROCEDURES Final Result [facility] [address] [place] [address], [place] * CT HEAD/BRAIN W & WO CONTRAST (12/17/2024 2:15 PM EDT) Anatomical Region Laterality Modality Radiographic Nuha ging Willard Calvo MD IMG XR PROCEDURES Final Resul t * XR chest 1 view (12/17/2024 2:14 PM EDT) Anatomical Region Laterality Modality Chest Radiographic Nuha ging Willard Calvo MD IMG XR PROCEDURES Final Resul t * Cologuard?? colon cancer screening (07/04/2023 12:00 PM EST) NONINV COLON CA DNA+OCC BLD SCRN STL-IMP Negative Negative 07/12/2023 5:30 PM EST [facility] (CLIA #:[id number]) Comment: NEGATIVE TEST RESULT. A negative Cologuard [...] (Marion Segura al, N Engl J Med 2014;370(14):4261-1263) The normal value (reference range) for this assay is negative. COLOGUARD RE-SCREENING RECOMMENDATION: Periodic colorectal cancer screening is an important part of preventive healthcare for asymptomatic individuals at average risk for colorectal cancer. Following a negative Cologuard result, the [employer] and U.S. Multi-Society Task Force screening guidelines recommend a Cologuard re-screening interval of 3 years. References: [employer] Guideline for Colorectal Cancer Screening: https://www.cancer.org/cancer/epwpi-noiasw-qcrdds/bwmtzpnfq-ocjztxzfn-lelsvhz/ac s-rec ommendations.html.; Srikanth SANDOVAL, [place] CHAMBERLAIN, Debra KellyK, Colorectal Cancer Screening: Recommendations for Physicians and Patients from the U.S. Multi-Society Task Force on Colorectal Cancer Screening , Am J Gastroenterology 2017; 112:1058-3739. TEST DESCRIPTION: Composite algorithmic analysis of stool [...] Vasquez et al, N Engl J Med 2014;370(14):4284-1626.) Cologuard may produce a false negative or false positive result (no colorectal cancer or precancerous polyp present at colonoscopy follow up). A negative Cologuard test result does not guarantee the absence of CRC or advanced adenoma (pre-cancer). The current Cologuard screening interval is every 3 years. ([employer] and U.S. Multi-Society Task Force). Cologuard performance data in a 10,000 patient pivotal study using colonoscopy as the reference method can be accessed at the following location: www.[employer]/results. Additional description of the Cologuard test process, warnings and precautions can be found at www.[employer]. Stool specimen (specimen) 07/04/2023 12:00 PM EST 07/05/2023 8:46 AM EST us Yaritza Mueller NP LAB MOLECULAR DIAGNOSTICS ORDER PATRICK Final Result .[facility] (CLIA #:[id number]) [address] [id number] [phone] [facility] (CLIA #:[id number]) [address] [place] [id number] from Last 3 Months or Most Recently Relevant to Health Maintenance Insurance [employer] Care Teams Digital Account Executive Relationship Specialty Start Date End Date Dashawn Cummins MD PCP - General Family Medicine 06/27/23 Yaritza Mueller NP Referring Physician Nurse Practitioner 12/26/22 Yaritza Mueller NP Nurse Practitioner Family Medicine 06/27/23
--- NOTE | 2025-02-09 13:25 | CT_ITS ---
The [address] [address] Patient Name: ANNE MCFADDEN MRN: [id number] date: 1955 Sex: F Assigned Patient Location: LAB Current Patient Location: LAB Accession/Order Number: [id number] Exam Date: 02/09/2025 13:50 Report Date: 02/09/2025 14:32 At the request of: YANA LEVINE MD Procedure: CT angio chest CTA chest CLINICAL DATA: Chest pain and hypertensive heart disease. TECHNIQUE: Intravenous contrast-enhanced CT angiography of the chest was performed. Axial, sagittal, coronal, and 3D-dimensional reconstructions were created and reviewed. These CT exams were performed using one or more of the following dose reduction techniques: Automated exposure control, adjustment of the mA and/or kV according to patient size, or use of iterative reconstruction technique. COMPARISON: CT chest 09/28/2021. FINDINGS: Chest: Mediastinum:Thoracic aorta appears normal in caliber without aneurysm dissection or rupture. Three-vessel arch is noted. Minimal calcification. Pulmonary trunk appears nondilated. No pericardial effusion or lymphadenopathy. The esophagus is grossly unremarkable. Lungs:Bibasilar atelectasis. No consolidation pneumothorax or pleural effusion. Abd: No acute process.[ Soft tissues/Bones: No acute process. Osseous structures demonstrate degenerative change. CT/CT angio chest IMPRESSION: No acute aortic pathology. Bibasilar atelectasis. Impression dictated by: Ramos Marin Jr., D.O. 02/09/2025 2:32 PM Dictation Location: [place] [address] Electronically authenticated by: [id number] Y Date: 02/09/2025 14:32
[2025-02-09 13:34] LABS: Estimated GFR (African America >60 (>=60 mL/min/1.73m^2); Estimated GFR (Non-African Ame 60 (>=60 mL/min/1.73m^2)
--- OUTSIDE RECORDS SUMMARY | 2025-02-09 13:38 | XMS_ITS | CCD ---
Author Organization [facility] Care Team Providers Care Hand Ii Blocker Name Role Phone LENO, VICTORIA E Unavailable Unavailable PAVLOCK, MAX ROBERTO Unavailable Unavailable FANNING, VICTORIA E Unavailable Unavailable PAVLOCK, MAX ROBERTO Unavailable Unavailable PAN ASNDERSON Primary Care Physician Nori Odonnell Unavailable Unavailable [...] Pocos, DO Cas Joe Attending Unavailable AICHHOLZ, DYE BOARDING MACHINE OPERATOR YARITZA Consulting Unavailable AICHHOLZ, DYE BOARDING MACHINE OPERATOR YARITZA Primary Care Unavailable AICHHOLZ, DYE BOARDING MACHINE OPERATOR YARITZA Admitting Unavailable AICHHOLZ, DYE BOARDING MACHINE OPERATOR YARITZA Attending Unavailable AICHHOLZ, DYE BOARDING MACHINE OPERATOR YARITZA Consulting Unavailable AICHHOLZ, DYE BOARDING MACHINE OPERATOR YARITZA Primary Care Unavailable AICHHOLZ, DYE BOARDING MACHINE OPERATOR YARITZA Admitting Unavailable AICHHOLZ, DYE BOARDING MACHINE OPERATOR YARITZA Attending Unavailable AICHHOLZ, DYE BOARDING MACHINE OPERATOR YARITZA Consulting Unavailable AICHHOLZ, DYE BOARDING MACHINE OPERATOR YARITZA Primary Care Unavailable AICHHOLZ, DYE BOARDING MACHINE OPERATOR YARITZA Admitting Unavailable AICHHOLZ, DYE BOARDING MACHINE OPERATOR YARITZA Attending Unavailable AICHHOLZ, DYE BOARDING MACHINE OPERATOR YARITZA Consulting Unavailable AICHHOLZ, DYE BOARDING MACHINE OPERATOR YARITZA Primary Care Unavailable AICHHOLZ, DYE BOARDING MACHINE OPERATOR YARITZA Admitting Unavailable AICHHOLZ, DYE BOARDING MACHINE OPERATOR YARITZA Attending Unavailable AICHHOLZ, DYE BOARDING MACHINE OPERATOR YARITZA Primary Care Unavailable DR CAS BAIG V Consulting Unavailable AICHHOLZ, DYE BOARDING MACHINE OPERATOR YARITZA Admitting Unavailable AICHHOLZ, DYE BOARDING MACHINE OPERATOR YARITZA Attending Unavailable AICHHOLZ, DYE BOARDING MACHINE OPERATOR YARITZA Consulting Unavailable Aichholz UNIVERSITY ADMINISTRATOR, Yaritza Unavailable Dashawn Cummins MD Primary Care Provider [phone] Aichholjuan antonio UNIVERSITY ADMINISTRATOR, Yaritza Unavailable ERVIN, YARITZA Attending Unavailable YANA LEVINE Attending Unavailable ERVIN YARITZA Referring Unavailable Allergies Allergy Classification Reported Allergen(s) Allergy Type Date of Onset Reaction(s) Facility (18 sources) Codeine; Translations: [CODEINE] Drug Allergy 7 nausea, vomiting [facility] Repository (12 sources) Penicillins; Translations: [PENICILLINS] Propensity to adverse reactions to drug (disorder) 7 [facility] Repository (5 sources) Penicillin; Translations: [penicillin] Drug Allergy [facility] (1 source) Penicillin G Drug Allergy [facility] Triangulate Other Medications Current Medications Medication Drug Class(es) Dates Sig (Normalized) Sig (Original) ashwaganda/dev root (3 sources) Start: 09-15-2021 ashwaganda/dev root ashwaganda/dev root, Oral, Daily Start Date: 09/15/21 Status: Ordered aspirin 81 mg delayed release oral tablet (2 sources) Platelet Aggregation Inhibitor, Nonsteroidal Anti-inflammatory Drug Start: 09-19-2021 Aspirin 81 mg Tab-EC 81 mg = 1 tab(s), Oral, BIDPC, # 60 tab(s), Refills(s) 0, Pharmacy: [address], [address], cm, 09/18/21 6:21:00 EDT, Height/Length Dosing, 73, kg, 09/18/21 6:21:00 EDT, Weight Dosing Start Date: 09/19/21 Status: Ordered Start: 09-19-2021 Aspirin 81 mg Tab-EC 81 mg = 1 tab(s), Oral, BIDPC, # 60 tab(s), Refills(s) 0, Pharmacy: [facility] [address], [address], cm, 09/18/21 6:21:00 EDT, Height/Length [...] constipation, # 40 cap(s), Refills(s) 0, Pharmacy: [facility] [address], [address], cm, 09/18/21 6:21:00 EDT, Height/Length [...] pain, # 40 tab(s), Refills(s) 0, Pharmacy: [address], [address], cm, 09/18/21 6:21:00 EDT, Height/Length [...] 09-15-2021 take 1 capsule by [facility] once daily venlafaxine 150 mg Cap-ER 150 mg = 1 cap(s), Oral, Daily, Refills(s) 0, Other (see comment) Start Date: 09/15/21 Status: Ordered take 1 capsule by [facility] every twenty-four hours in the morning venlafaxine [...] Resolved: 12-17-2024 09-15-2021 Chronic Nonspecific chest pain (19 sources) Chest pain; Translations: [Chest pain, unspecified] Onset: 12-17-2024 12-17-2024 Episodic Osteoarthritis (13 sources) Arthritis; Translations: [Osteoarthritis of left knee joint] Onset: 12-30-2023 09-15-2021 Chronic Other connective tissue disease (1 source) Artificial knee joint present; Translations: [Presence of left artificial knee joint] Onset: 09-20-2021 Chronic Other lower respiratory disease (2 sources) Shortness of breath; Translations: [Shortness of breath] Onset: 02-04-2025 Episodic Other non-traumatic joint disorders (1 source) Instability [...] Test Name Value Interpretation Reference Range Facility Office Visiton 02-04-2025 Follow-up visit [id number] Anne Kemp 1955 F Date Provider Department [facility] Family History Problem Relation Age of Onset Multiple sclerosis Mother Heart attack Father Family Status - Relation Status Age at Mother Father Level of Service:62093 [place] OFFICE/OUTPATIENT NEW MODERATE MDM 45 MINUTES Reason for Visit and Comments: left bundle branch block [Other] Hyperlipidemia [182] Hypertension [700200] Sleep Apnea [348] Chest Pain [016156] CASTRO [Other] New Patient [632] Normal [facility] NM JHON PERF SPECT REST STRon 12-27-2024 [facility] [address] [place] [address] Nuclear Medicine Report Signed Patient: ANNE KEMP MR#: [id number] : 1955 Acct:[id number] Age/Sex: 69 / F ADM Date: 12/25/24 Loc: HUGO Attending Dr: Yaritza Mueller NP Ordering Physician: Yaritza Mueller NP Date of Service: 12/25/24 Procedure(s): NM jhon perf SPECT rest str Accession Number(s): [id number] cc: Yaritza Mueller NP Patient Name: ANNE KEMP MR#: [id number] : 1955 Exam Date: 12/25/2024 Ordering Doctor: [...] M.D. Signed By: 12/27/241841 DD/ 40 TD/TT: Metal Moulder'S Assistant: [facility] RadiologyMonty MD - 12/27/2024 [place] [address] Nuclear Medicine Report Signed Patient: ANNE KEMP MR#: [id number] : 1955 Acct:[id number] Age/Sex: 69 / F ADM Date: 12/25/24 Loc: [place] Attending Dr: Yaritza Mueller NP Ordering Physician: Yaritza Mueller NP Date of Service: 12/25/24 Procedure(s): NM jhon perf SPECT rest str Accession Number(s): [id number] cc: Yaritza Mueller NP Patient Name: ANNE KEMP MR#: [id number] : 1955 Exam Date: 12/25/2024 Ordering Doctor: [...] M.D. Signed By: 12/27/241841 DD/ 40 TD/TT: Metal Moulder'S Assistant: [facility] Radiology Study observation (narrative) [facility] NM JHON PERF SPECT REST STROr dered By: Radiologist Radiology on 12-27-2024 [id number] Work Phone: [place] ECHO DOPPLER COMPLETEon 0 12-23-2024 [place] [address] Cardiology Report Signed Patient: ANNE KEMP MR#: [id number] : 1955 Acct:[id number] Age/Sex: 69 / F ADM Date: 12/23/24 Loc: CARD Attending Dr: Yaritza Mueller NP Ordering Physician: Yaritza Mueller NP Date of Service: 12/23/24 Procedure(s): CA echo doppler complete Accession Number(s): [id number] cc: Yaritza Mueller NP Patient Name: ANNE KEMP MR#: [id number] : 1955 Exam Date: 12/23/2024 Ordering Doctor: [...] Area (VTI): 2.36 cm2, 2.36 cm2 Deceleration Roosevelt: Pressure Half-Time: Peak Velocity(Antegrade Flow): 1.23 m/s [...] La Cruz M.D. (more content not included)... [facility], Radiologavelina lopez MD - 12/23/2024 [place] [address] Cardiology Report Signed Patient: ANNE KEMP MR#: [id number] : 1955 Acct:[id number] Age/Sex: 69 / F ADM Date: 12/23/24 Loc: CARD Attending Dr: Yaritza Mueller NP Ordering Physician: Yaritza Mueller NP Date of Service: 12/23/24 Procedure(s): CA echo doppler complete Accession Number(s): [id number] cc: Yaritza Mueller NP Patient Name: ANNE KEMP MR#: [id number] : 1955 Exam Date: 12/23/2024 Ordering Doctor: [...] Area (VTI): 2.36 cm2, 2.36 cm2 Deceleration Roosevelt: Pressure Half-Time: Peak Velocity(Antegrade Flow): 1.23 m/s [...] M.D. Signed By: 12/23/241820 DD/ 19 TD/TT: Metal Moulder'S Assistant: [facility] Radiology Study observation (narrative) [facility] CA ECHO DOPPLER COMPLETEOrde red By: Radiologist Radiology on 12-23-[address] [facility] Work Phone: GGTon 11-07-2022 Gamma glutamyl transferase [Catalytic activity/Vol] 122 U/L Critically high 8-55 [facility] Comment on above: Performed By: #### L IVER, GGT #### [facility] [address] [place] [address] Dr. Sarah Beth Benton LIVER PROFILEon 11-07-2022 Albumin [Mass/Vol] 3.8 g/dL Normal 3.4-5.0 [facility] Comment on above: Performed By: #### L IVER, GGT #### [facility] [address] [place] [address] Dr. Sarah Beth Benton Albumin/Globulin [Mass ratio] 1.0 {ratio} Normal [facility] Comment on above: Performed By: #### L IVER, GGT #### [facility] [address] [place] [address] Dr. Sarah Beth Benton ALP [Catalytic activity/Vol] 119 U/L Critically high 46-116 [facility] Comment on above: Performed By: #### L IVER, GGT #### [facility] [address] [place] [address] Dr. Sarah Beth Benton ALT [Catalytic activity/Vol] 27 U/L Normal 14-59 [facility] Comment on above: Performed By: #### L IVER, GGT #### [facility] [address] [place] [address] Dr. Sarah Beth Benton AST [Catalytic activity/Vol] 25 U/L Normal 15-37 [facility] Comment on above: Performed By: #### L IVER, GGT #### [facility] [address] [place] [address] Dr. Sarah Beth Benton BILI, CONJUGATED 0.1 mg/dL Normal 0.0-0.2 [facility] Comment on above: Performed By: #### L IVER, GGT #### [facility] [address] [place] [address] Dr. Sarah Beth Benton Bilirubin [Mass/Vol] 0.5 mg/dL Normal 0.2-1.0 [facility] Comment on above: Performed By: #### L IVER, GGT #### [facility] [address] [place] [address] Dr. Sarah Beth Benton Globulin (S) [Mass/Vol] 3.8 g/dL Normal [facility] Comment on above: Performed By: #### L IVER, GGT #### [facility] [address] [place] [address] Dr. Sarah Beth Benton Protein [Mass/Vol] 7.6 g/dL Normal 6.4-8.2 [facility] Comment on above: Performed By: #### L IVER, GGT #### [facility] [address] [place] [address] Dr. Sarah Beth Benton FREE T4on 10-25-2022 Free T4 [Mass/Vol] 0.76 ng/dL Normal 0.76-1.46 [facility] Comment on above: Performed By: #### L IVER, GGT #### [facility] [address] [place] [address] Dr. Sarah Beth Benton HEMOGRAM AND PLATELon 2022 Hematocrit (Bld) [Volume fraction] 35.9 % Critically low 36.0-48.0 [facility] Comment on above: Performed By: #### L IVER, GGT #### [facility] [address] [place] [address] Dr. Sarah Beth Benton Hemoglobin (Bld) [Mass/Vol] 12.3 g/dL Normal 12.0-16.0 [facility] Comment on above: Performed By: #### L IVER, GGT #### [facility] [address] [place] [address] Dr. Sarah Beth Benton MCH (RBC) [Entitic mass] 30.6 pg Normal 26.7-34.0 [facility] Comment on above: Performed By: #### L IVER, GGT #### [facility] [address] [address] [address] [facility] [Mass/Vol] 34.3 g/dL Normal 29.9-35.2 [facility] Comment on above: Performed By: #### L IVER, GGT #### [facility] [address] [address] [address] Sarah Beth Benton MCV (RBC) [Entitic vol] 89.3 fL Normal 81.0-99.0 [facility] Comment on above: Performed By: #### L IVER, GGT #### [facility] [address] [place] [address] Dr. Sarah Beth Benton PLT 356 103/ul Normal 150-450 [facility] Comment on above: Performed By: #### L IVER, GGT #### [facility] [address] [place] [address] Dr. Sarah Beth Benton RBC 4.02 106/ul Critically low 4.20-5.40 [facility] Comment on above: Performed By: #### L IVER, GGT #### [facility] [address] [place] [address] Dr. Sarah Beth Benton WBC 5.9 103/ul Normal 4.0-11.0 [facility] Comment on above: Performed By: #### L IVER, GGT #### [facility] [address] [place] [address] Dr. Sarah Beth Benton MG MAMM SCREEN 3D DOUG CADon 10-25-2022 MG MAMM SCREEN 3D DOUG CAD Patient: ANNE KEMP Exam Date: 10/25/2022 : 1955 Gender:F Ordering : MATT MUELLER CNP Admission #: [id number] Family : Order #: [id number] CLICK HERE TO VIEW EXAM RADIOLOGY REPORT [...] lung cancer at age 69. LOCATION: [facility] BREAST COMPOSITION: Scattered areas fibroglandular [...] Baig MD on 10/26/2022 at 12:06 Normal [facility] PROF 14(COMP METB)on 023 Albumin [Mass/Vol] 3.8 g/dL Normal 3.4-5.0 [facility] Comment on above: Performed By: #### P THINT #### [facility] [address] [place] [address] Dr. Sarah Beth Benton Albumin/Globulin [Mass ratio] 1.0 {ratio} Normal [facility] Comment on above: Performed By: #### P THINT #### [facility] [address] [place] [address] Dr. Sarah Beth Benton ALP [Catalytic activity/Vol] 139 U/L Critically high 46-116 [facility] Comment on above: Performed By: #### P THINT #### [facility] [address] [place] [address] Dr. Sarah Beth Benton ALT [Catalytic activity/Vol] 29 U/L Normal 14-59 [facility] Comment on above: Performed By: #### P THINT #### [facility] [address] [place] [address] Dr. Sarah Beth Benton Anion gap [Moles/Vol] 10.2 mmol/L Normal [facility] Comment on above: Performed By: #### P THINT #### [facility] [address] [place] [address] Dr. Sarah Beth Benton AST [Catalytic activity/Vol] 23 U/L Normal 15-37 [facility] Comment on above: Performed By: #### P THINT #### [facility] [address] [address] [address] Sarah Beth Benton Bilirubin [Mass/Vol] 0.3 mg/dL Normal 0.2-1.0 [facility] Comment on above: Performed By: #### P THINT #### [facility] [address] [address] [address] Sarah Beth Benton Calcium [Mass/Vol] 9.3 mg/dL Normal 8.5-10.1 [facility] Comment on above: Performed By: #### P THINT #### [facility] [address] [place] [address] Dr. Sarah Beth Benton Chloride [Moles/Vol] 98 mmol/L Normal 98-107 [facility] Comment on above: Performed By: #### P THINT #### [facility] [address] [address] [address] Sarah Beth Benton CO2 [Moles/Vol] 30.7 mmol/L Normal 21.0-32.0 [facility] Comment on above: Performed By: #### P THINT #### [facility] [address] [place] [address] Dr. Sarah Beth Benton Creatinine [Mass/Vol] 0.86 mg/dL Normal 0.55-1.02 [facility] Comment on above: Performed By: #### P THINT #### [facility] [address] [address] [address] Sarah Beth Benton EGFR-AF ERITREAN >60 Normal >=60 [facility] Comment on above: Performed By: #### P THINT #### [facility] [address] [place] [address] Dr. Sarah Beth Benton EGFR-NON AF ERITREAN >60 Normal >=60 [facility] Comment on above: Performed By: #### P THINT #### [facility] [address] [place] [address] Dr. Sarah Beth Benton Globulin (S) [Mass/Vol] 3.8 g/dL Normal [facility] Comment on above: Performed By: #### P THINT #### [facility] [address] [address] [address] Sarah Beth Benton Glucose [Mass/Vol] 89 mg/dL Normal 74-106 [facility] Comment on above: Performed By: #### P THINT #### [facility] [address] [address] [address] Sarah Beth Benton Potassium [Moles/Vol] 3.9 mmol/L Normal 3.5-5.1 [facility] Comment on above: Performed By: #### P THINT #### [facility] [address] [address] [address] Sarah Beth Benton Protein [Mass/Vol] 7.6 g/dL Normal 6.4-8.2 [facility] Comment on above: Performed By: #### P THINT #### [facility] [address] [address] [address] Sarah Beth Benton Sodium [Moles/Vol] 135 mmol/L Critically low 136-145 [facility] Comment on above: Performed By: #### P THINT #### [facility] [address] [address] [address] Sarah Beth Benton Urea nitrogen [Mass/Vol] 17.0 mg/dL Normal 7.0-18.0 [facility] Comment on above: Performed By: #### P THINT #### [facility] [address] [address] [address] Sarah Beth Benton Urea nitrogen/Creatinine [Mass ratio] 19.8 mg/mg Normal [facility] Comment on above: Performed By: #### P THINT #### [facility] [address] [address] [address] Sarah Beth Benton TSHon 10-25-2022 TSH 2.754 uIU/mL Normal 0.358-3.740 [facility] Comment on above: Performed By: #### P THINT #### [facility] [address] [address] [address] Sarah Beth Benton METANEPHRINES PLASMA FREEon 07-24-2022 Metanephrine, Pl 17.5 pg/mL Normal 0.0-88.0 [facility] Comment on above: Performed By: #### M ETANPF #### [facility] [address] [place] [address] Dr. Sarah Beth Benton Normetanephrine, Pl 90.0 pg/mL Normal 0.0-285.2 [facility] Comment on above: Performed By: #### M ETANPF #### [facility] [address] [place] [address] Dr. Sarah Beth Benton ACTH, PLASMAon 07-20-2022 ACTH, Plasma 38.6 pg/mL Normal 7.2-63.3 [facility] Comment on above: Result Comment: ACTH reference interval for samples collected between 7 and 10 AM. Performed By: #### P THINT #### [facility] [address] [place] [address] Dr. Sarah Beth Benton THYROID ANTIBODIESon 023 Thyroglobulin Antibody <1.0 Normal 0.0-0.9 [facility] Comment on above: Result Comment: Thyr oglobulin Antibody measured by [employer] Performed By: #### L CAROLA GGT #### [facility] [address] [place] [address] Dr. Sarah Beth Benton Thyroid Peroxidase (TPO) Ab <9 Normal 0-34 [facility] Comment on above: Performed By: #### Armando SRIVASTAVA GGT #### [facility] [address] [place] [address] Dr. Sarah Beth Benton FREE T3on 07-19-2022 FREE T3 2.27 pg/mlL Normal 2.18-3.98 [facility] Comment on above: Performed By: #### L IVMABLE, GGT #### [facility] [address] [place] [address] Dr. Sarah Beth Benton FREE T4on 07-19-2022 Free T4 [Mass/Vol] 0.72 ng/dL Critically low 0.76-1.46 [facility] Comment on above: Performed By: #### P THINT #### [facility] [address] [place] [address] Dr. Sarah Beth Benton MAGNESIUMon 07-19-2022 Magnesium [Mass/Vol] 2.4 mg/dL Normal 1.8-2.4 [facility] Comment on above: Performed By: #### L CAROLA GGT #### [facility] [address] [place] [address] Dr. Sarah Beth Benton TROPONIN, HIGH SENSITIVITYon 07-19-2022 HSTROP 5.3 pg/mL Normal 4.0-51.3 [facility] Comment on above: Result Comment: CUT- OFF POINTS HAVE BEEN ESTABLISHED BASED ON THE FOURTH UNIVERSAL DEFINITIONS OF MYOCARDIAL INFARCTION. THE UPPER REFERENCE LIMIT (URL) OF TROPONIN, DEFINED THE 99TH PERCENTILE OF cTnI DISTRIBUTION IN A REFERENCE POPULATION, HAS BEEN CONFIRMED THE DECISION THRESHOLD FOR [place] DIAGNOSIS. Performed By: #### L CAROLA GGT #### [facility] [address] [place] [address] Dr. Sarah Beth Benton TSHon 07-19-2022 TSH 4.556 uIU/mL Critically high 0.358-3.740 [facility] Comment on above: Performed By: #### L CAROLA GGT #### [facility] [address] [place] [address] Dr. Sarah Beth Benton RENIN ACTIVITYon 07-14-2022 Renin Activity, Plasma 1.051 ng/mL/hr Normal 0.167-5.380 [facility] Comment on above: Performed By: #### P THINT #### [facility] [address] [place] [address] Dr. Sarah Beth Benton CORTISOLon 07-12-2022 Cortisol 29.1 ug/dL Normal [facility] Comment on above: Result Comment: Corby isol AM 6.2 - 19.4 Cortisol PM 2.3 - 11.9 Performed By: #### L CAROLA GGT #### [facility] [address] [place] [address] Dr. Sarah Beth Benton PTH INTACTon 07-12-2022 PTH, Intact 29 pg/mL Normal 15-65 [facility] Comment on above: Performed By: #### P THINT #### [facility] [address] [place] [address] Dr. Sarah Beth Benton CBC AUTO DIFFon 07-11-2022 BASO # 0.1 103/ul Normal 0.0-0.1 [facility] Comment on above: Performed By: #### C BC #### [facility] [address] [place] [address] Dr. Sarah Beth Benton Basophils/100 WBC (Bld) 1.1 % Normal 0.2-2.0 [facility] Comment on above: Performed By: #### C BC #### [facility] [address] [place] [address] Dr. Sarah Beth Benton EO # 0.2 103/ul Normal 0.0-0.7 [facility] Comment on above: Performed By: #### C BC #### [facility] [address] [place] [address] Dr. Sarah Beth Benton Eosinophils/100 WBC (Bld) 3.2 % Normal 0.9-7.0 [facility] Comment on above: Performed By: #### C BC #### [facility] [address] [place] [address] Dr. Sarah Beth Benton Erythrocyte distribution width (RBC) [Ratio] 12.7 % Normal 11.0-15.0 [facility] Comment on above: Performed By: #### C BC #### [facility] [address] [place] [address] Dr. Sarah Beth Benton Hematocrit (Bld) [Volume fraction] 39.2 % Normal 36.0-48.0 [facility] Comment on above: Performed By: #### C BC #### [facility] [address] [place] [address] Dr. Sarah Beth Benton Hemoglobin (Bld) [Mass/Vol] 12.8 g/dL Normal 12.0-16.0 [facility] [facility] Comment on above: Performed By: #### C BC #### [facility] [address] [place] [address] Dr. Sarah Beth Benton IG # 0.01 10e3/ul Normal 0.00-0.03 [facility] Comment on above: Performed By: #### C BC #### [facility] [address] [place] [address] Dr. Sarah Beth Benton IG % 0.2 % Normal 0.0-0.5 [facility] Comment on above: Performed By: #### C BC #### [facility] [address] [place] [address] Dr. Sarah Beth Benton LYMPH # 1.9 103/ul Normal 1.2-3.8 [facility] Comment on above: Performed By: #### C BC #### [facility] [address] [place] [address] Dr. Sarah Beth Benton Lymphocytes/100 WBC (Bld) 41.1 % Normal 20.5-60.0 [facility] Comment on above: Performed By: #### C BC #### [facility] [address] [place] [address] Dr. Sarah Beth Benton MANUAL DIFF REQ NO Normal [facility] Comment on above: Performed By: #### C BC #### [facility] [address] [place] [address] Dr. Sarah Beth Benton MCH (RBC) [Entitic mass] 30.2 pg Normal 26.7-34.0 [facility] Comment on above: Performed By: #### C BC #### [facility] [address] [place] [address] Dr. Sarah Beth Benton MCHC (RBC) [Mass/Vol] 32.7 g/dL Normal 29.9-35.2 [facility] Comment on above: Performed By: #### C BC #### [facility] [address] [place] [address] Dr. Sarah Beth Benton MCV (RBC) [Entitic vol] 92.5 fL Normal 81.0-99.0 [facility] Comment on above: Performed By: #### C BC #### [facility] [address] [place] [address] Dr. Sarah Beth Benton MONO # 0.7 103/ul Normal 0.3-0.8 [facility] Comment on above: Performed By: #### C BC #### [facility] [address] [place] [address] Dr. Sarah Beth Benton Monocytes/100 WBC (Bld) 14.0 % Critically high 1.7-12.0 [facility] Comment on above: Performed By: #### C BC #### [facility] [address] [place] [address] Dr. Sarah Beth Benton NEUT # 1.9 103/ul Normal 1.4-6.5 [facility] Comment on above: Performed By: #### C BC #### [facility] [address] [place] [address] Dr. Sarah Beth Benton Neutrophils/100 WBC (Bld) 40.4 % Critically low 43.0-75.0 [facility] Comment on above: Performed By: #### C BC #### [facility] [address] [place] [address] Dr. Sarah Beth Benton Platelet mean volume (Bld) [Entitic vol] 8.2 fL Critically low 9.5-13.5 [facility] Comment on above: Performed By: #### C BC #### [facility] [address] [place] [address] Dr. Sarah Beth Benton PLT 357 103/ul Normal 150-450 [facility] Comment on above: Performed By: #### C BC #### [facility] [address] [place] [address] Dr. Sarah Beth Benton RBC 4.24 106/ul Normal 4.20-5.40 [facility] Comment on above: Performed By: #### C BC #### [facility] [address] [place] [address] Dr. Sarah Beth Benton WBC 4.7 103/ul Normal 4.0-11.0 [facility] Comment on above: Performed By: #### C BC #### [facility] [address] [place] [address] Dr. Sarah Beth Benton CPKon 07-11-2022 CK [Catalytic activity/Vol] 77 U/L Normal 26-192 [facility] Comment on above: Performed By: #### C MP, TSH, CK, LIPID #### [facility] [address] [place] [address] Dr. Sarah Beth Benton FREE T4on 07-11-2022 Free T4 [Mass/Vol] 0.75 ng/dL Critically low 0.76-1.46 [facility] Comment on above: Performed By: #### L IVER, GGT #### [facility] [address] [place] [address] Dr. Sarah Beth Benton LIPID PROFILEon 07-11-2022 CHOL-HDL RATIO NORM SEE BELOW Normal [facility] Comment on above: Result Comment: 3.3 - 4.4 LOW RISK 4.4 - 7.1 AVERAGE RISK 7.1 - 11.0 MODERATE RISK >11.0 HIGH RISK Performed By: #### C MP, TSH, CK, LIPID #### [facility] [address] [place] [address] Dr. Sarah Beth Benton Cholesterol [Mass/Vol] 292 mg/dL Critically high <=200 [facility] Comment on above: Performed By: #### C MP, TSH, CK, LIPID #### [facility] [address] [place] [address] Dr. Sarah Beth Benton Cholesterol in HDL [Mass/Vol] 67 mg/dL Critically high 40-60 [facility] Comment on above: Performed By: #### C MP, TSH, CK, LIPID #### [facility] [address] [place] [address] Dr. Sarah Beth Benton Cholesterol in LDL [Mass/Vol] 201.6 mg/dL Normal [facility] Comment on above: Performed By: #### C MP, TSH, CK, LIPID #### [facility] [address] [place] [address] Dr. Sarah Beth Benton Cholesterol.total/Ch olesterol in HDL [Mass ratio] 4.4 {ratio} Normal [facility] Comment on above: Performed By: #### C MP, TSH, CK, LIPID #### [facility] [address] [place] [address] Dr. Sarah Beth Benton HDL NORMAL > or = 60 mg/dl - LO W CARDIOVASCULAR RISK <40 mg/dl - HIGH CARDIOVASCULAR RISK Normal [facility] Comment on above: Performed By: #### C MP, TSH, CK, LIPID #### [facility] [address] [address] [address] Sarah Beth Benton LDL CALC NORMAL SEE BELOW Normal [facility] Comment on above: Result Comment: <100 mg/dl OPTIMAL 100 - 129 mg/dl NEAR OR ABOVE OPTIMAL 130 - 159 mg/dl BORDERLINE HIGH 160 - 189 mg/dl HIGH >190 mg/dl VERY HIGH Performed By: #### C MP, TSH, CK, LIPID #### [facility] [address] [address] [address] Sarah Beth Benton Triglyceride [Mass/Vol] 117 mg/dL Normal <=150 [facility] Comment on above: Performed By: #### C MP, TSH, CK, LIPID #### [facility] [address] [place] [address] Dr. Sarah Beth Benton VLDL CALC 23.4 mg/dL Normal [facility] Comment on above: Performed By: #### C MP, TSH, CK, LIPID #### [facility] [address] [place] [address] Dr. Sarah Beth Benton MICROALBUMIN, RAND URon mALB 1.6 mg/L Normal <=30.0 [facility] Comment on above: Performed By: #### P THINT #### [facility] [address] [place] [address] Dr. Sarah Beth Benton PROF 14(COMP METB)on 023 Albumin [Mass/Vol] 4.0 g/dL Normal 3.4-5.0 [facility] Comment on above: Performed By: #### C MP, TSH, CK, LIPID #### [facility] [address] [place] [address] Dr. Sarah Beth Benton Albumin/Globulin [Mass ratio] 1.1 {ratio} Normal [facility] Comment on above: Performed By: #### C MP, TSH, CK, LIPID #### [facility] [address] [place] [address] Dr. Sarah Beth Benton ALP [Catalytic activity/Vol] 109 U/L Normal 46-116 [facility] Comment on above: Performed By: #### C MP, TSH, CK, LIPID #### [facility] [address] [address] [address] Sarah Beth Benton ALT [Catalytic activity/Vol] 28 U/L Normal 14-59 [facility] Comment on above: Performed By: #### C MP, TSH, CK, LIPID #### [facility] [address] [address] [address] Sarah Beth Benton Anion gap [Moles/Vol] 11.7 mmol/L Normal [facility] Comment on above: Performed By: #### C MP, TSH, CK, LIPID #### [facility] [address] [address] [address] Sarah Beth Benton AST [Catalytic activity/Vol] 28 U/L Normal 15-37 [facility] Comment on above: Performed By: #### C MP, TSH, CK, LIPID #### [facility] [address] [address] [address] Sarah Beth Benton Bilirubin [Mass/Vol] 0.4 mg/dL Normal 0.2-1.0 [facility] Comment on above: Performed By: #### C MP, TSH, CK, LIPID #### [facility] [address] [address] [address] Sarah Beth Benton Calcium [Mass/Vol] 9.4 mg/dL Normal 8.5-10.1 [facility] Comment on above: Performed By: #### C MP, TSH, CK, LIPID #### [facility] [address] [address] [address] Sarah Beth Benton Chloride [Moles/Vol] 100 mmol/L Normal 98-107 [facility] Comment on above: Performed By: #### C MP, TSH, CK, LIPID #### [facility] [address] [address] [address] Sarah Beth Benton CO2 [Moles/Vol] 32.0 mmol/L Normal 21.0-32.0 [facility] Comment on above: Performed By: #### C MP, TSH, CK, LIPID #### [facility] [address] [address] [address] Sarah Beth Benton Creatinine [Mass/Vol] 0.85 mg/dL Normal 0.55-1.02 [facility] Comment on above: Performed By: #### C MP, TSH, CK, LIPID #### [facility] [address] [address] [address] Sarah Beth Benton EGFR-AF ERITREAN >60 Normal >=60 [facility] Comment on above: Performed By: #### C MP, TSH, CK, LIPID #### [facility] [address] [address] [address] Sarah Beth Benton EGFR-NON AF ERITREAN >60 Normal >=60 [facility] Comment on above: Performed By: #### C MP, TSH, CK, LIPID #### [facility] [address] [address] [address] Sarah Beth Benton Globulin (S) [Mass/Vol] 3.7 g/dL Normal [facility] Comment on above: Performed By: #### C MP, TSH, CK, LIPID #### [facility] [address] [place] [address] Dr. Sarah Beth Benton Glucose [Mass/Vol] 79 mg/dL Normal 74-106 [facility] Comment on above: Performed By: #### C MP, TSH, CK, LIPID #### [facility] [address] [place] [address] Dr. Sarah Beth Benton Potassium [Moles/Vol] 4.7 mmol/L Normal 3.5-5.1 [facility] Comment on above: Performed By: #### C MP, TSH, CK, LIPID #### [facility] [address] [place] [address] Dr. Sarah Beth Benton Protein [Mass/Vol] 7.7 g/dL Normal 6.4-8.2 [facility] Comment on above: Performed By: #### C MP, TSH, CK, LIPID #### [facility] [address] [place] [address] Dr. Sarah Beth Benton Sodium [Moles/Vol] 139 mmol/L Normal 136-145 [facility] Comment on above: Performed By: #### C MP, TSH, CK, LIPID #### [facility] [address] [place] [address] Dr. Sarah Beth Benton Urea nitrogen [Mass/Vol] 16.0 mg/dL Normal 7.0-18.0 [facility] Comment on above: Performed By: #### C MP, TSH, CK, LIPID #### [facility] [address] [place] [address] Dr. Saarh Beth Benton Urea nitrogen/Creatinine [Mass ratio] 18.8 mg/mg Normal [facility] Comment on above: Performed By: #### C MP, TSH, CK, LIPID #### [facility] [address] [place] [address] Dr. Sarah Beth Benton TSHon 07-11-2022 TSH 5.279 uIU/mL Critically high 0.358-3.740 [facility] Comment on above: Performed By: #### C MP, TSH, CK, LIPID #### [facility] [address] [place] [address] Dr. Sarah Beth Benton UA RANDOM W/MICROSCOPICon BACTERIA NONE SEEN Normal NONE SEEN [facility] Comment on above: Performed By: #### U AMIC #### [facility] [address] [place] [address] Dr. Sarah Beth Benton Bilirubin Ql (U) Negative Normal NEGATIVE [facility] Comment on above: Performed By: #### U AMIC #### [facility] [address] [place] [address] Dr. Sarah Beth Benton CAST NONE SEEN Normal NONE SEEN [facility] Comment on above: Performed By: #### U AMIC #### [facility] [address] [place] [address] Dr. Sarah Beth Benton Clarity (U) CLEAR Normal CLEAR [facility] Comment on above: Performed By: #### U AMIC #### [facility] [address] [place] [address] Dr. Sarah Beth Benton Color (U) YELLOW Normal YELLOW [facility] Comment on above: Performed By: #### U AMIC #### [facility] [address] [place] [address] Dr. Sarah Beth Benton Crystals LM Nom (Urine sed) NONE SEEN Normal NONE SEEN [facility] Comment on above: Performed By: #### U AMIC #### [facility] [address] [address] [address] Sarah Beth Benton Epithelial cells LM Ql (Urine sed) FEW Abnormal NONE SEEN /RARE [facility] Comment on above: Performed By: #### U AMIC #### [facility] [address] [address] [address] Sarah Beth Benton Glucose Ql (U) Negative Normal NEGATIVE [facility] Comment on above: Performed By: #### U AMIC #### [facility] [address] [address] [address] Sarah Beth Benton Hemoglobin Ql (U) Negative Normal NEGATIVE [facility] Comment on above: Performed By: #### U AMIC #### [facility] [address] [address] [address] Sarah Beth Benton Ketones Ql (U) Negative Normal NEGATIVE [facility] Comment on above: Performed By: #### U AMIC #### [facility] [address] [address] [address] Sarah Beth Benton LEUKOCYTES Negative Normal NEGATIVE [facility] Comment on above: Performed By: #### U AMIC #### [facility] [address] [address] [address] Sarah Beth Benton MUCOUS SMALL Abnormal NONE SEEN [facility] Comment on above: Performed By: #### U AMIC #### [facility] [address] [address] [address] Sarah Beth Benton Nitrite Ql (U) Negative Normal NEGATIVE [facility] Comment on above: Performed By: #### U AMIC #### [facility] [address] [address] [address] Sarah Beth Benton pH (U) 6.0 [pH] Normal 5-9 [facility] Comment on above: Performed By: #### U AMIC #### [facility] [address] [address] [address] Sarah Beth Benton RBC NONE SEEN Abnormal 0-2 [facility] Comment on above: Performed By: #### U AMIC #### [facility] [address] [address] [address] Sarah Beth Benton SPEC GRAVITY 1.025 Normal 1.005-<=1.0 25 [facility] Comment on above: Performed By: #### U AMIC #### [facility] [address] [address] [address] Sarah Beth Benton UA PROTEIN Negative Normal NEGATIVE/ TRACE [facility] Comment on above: Performed By: #### U AMIC #### [facility] [address] [address] [address] Sarah Beth Benton Urobilinogen Qn (U) 0.2 {Becca'U}/dL Normal 0.2 - 1. 0 [facility] Comment on above: Performed By: #### U AMIC #### [facility] [address] [place] [address] Dr. Sarah Beth Benton WBC NONE SEEN Normal NONE SEEN [facility] Comment on above: Performed By: #### U AMIC #### [facility] [address] [place] [address] Dr. Sarah Beth Benton Insurance Correspondence Off ice02-26-2022 Insurance Correspondence Office [id number]#1.00CD:1 27 [facility] Insurance Correspondence Office [id number]#1.00CD:1 27 [facility] Insurance Correspondence Off [facility] 11-21-2021 Insurance Correspondence Office [id number]#1.00CD: 127 [facility] Insurance Correspondence Off ice11-20-2021 Insurance Correspondence Office [id number]#1.00CD :127 [facility] Preoperative Documentson Preoperative Documents [id number]#1.00C D:127 [facility] Coding Summary.on 09-29-2021 Coding Summary. CD:[id number] Gh0b Ww+PGhlYWQ+GP8YOIGbN26ka NWikQ0PH9wCWF7GUCGSLASDM W3WKZ3yiOZ4REmgX8ThkzOt BhxuhBJzFZ10EBu8XLR3rPhp NVnkjU4rxNUoN3v1ZeFvWY06 rF39LOloMOJgXjX3ZyZldcjg bWFy N2qkJqTskZRrGkp+PHRhYmxl IHdpZHRoPScxMDAlJyBzdHls RB6oZi1yREXnAGOkqVvyvZDy OiBj j6stLMMeYNzbRF0hfEyaO5Mu bWZ3QFCnb2l3Vy20iSB+PHRk WBG7uTjvWEdmv948UsKys0na IDM3 qQYjAOvwZAM7N16yn9G0LWEn UQBwIXT8nYA6aV7xrXtkooiq W7WftNAfUmM0EXR3zEVkoY0r bGln easnyZ0hWhj+V33NRR9VBUGR GW6ZGit6W3SzLpbleEC+PC90 GJVrTM98fBMqnXPyu3ujwFx2 JzEw YSAcGNG6aFmgGOjwu8WaWZIf H53jzNQrw0Q6UKDcqCrnfZGr ZoBswRS2qS5xDTsqhorxr2zx dzsn Sqwda4dlwn31mY46J86kKYks VFGuFYH3MPYfLPDvwPudqq5t aT6uZn8+DUedh9jlt3uwbAt5 IjIw NHSoczQsnBduXZV2j5YlGj92 S6BdqJqln4YoUiw2qc35lBVv l4Y3lLP3DKplEWLenV8nDUei ZnQ6 UHJjGqXlzV11nWEbBLxiXd4d oRwkzMepGX3lTPYyddebEAQp yO9nHIOieBNriMefMZ1eTEJm bjtm j943CkZuLSW2YQHanOHeD7Js uO4uXoOyTRYaCEJkL5DqiIQt FXvpP142XEusYyW5LZPsfhTy Y2Fs KJLzmAdvEaJ7t2B0Ea5Nx6Yw njspHOD9SFfrVXB4ZhHcMrCi HoA0Z0EwIhg3SURomXpcEK5b J3Bh XDEhbqpyhsbmxMB5TJVqNBCa kS20wVSaENzuQu9xf5G9t969 DTYwIEEhtQ19Oo3rzGncAUOl dCBU wA0xhdjkx6hxgzucQnBdEVOb ZOa9ZHe1FOHzmNmiFaGaSKO3 RnA7CTZ2gJRplD3pmSpewpos dG9w Oyc+N55jwJ6nZXT4KRV6cvzf NTYbhmIqGH41SK47N8MbDxfb dGFibGU+BKHxgtSpwJaaQQ8a YmFj q7sea0AlVHitM9PcAFIeBWgz Qhu5DZEfETQ3dUT8fH5vKDOr MKyuc8S9jTN2B0AqtbVgva7z b2xs AVRcIRdtL61ovVGft7B3ZANe nTH0VGOkrMsbPwAhkL32Ssa+ EHYmfNxut5SuAjsev4jlp9tm dGg9 XfLgCEZqtrOudFspYQA4l2Rv Kj31N51xBJuwMNEnUOZaDVEt FWVqjLgjmn4khN6lFv5+PGNv bCB3 kHH3tV2nHNGcYhG7FFqwJ973 AoMeuSHhBlisz2ads1sliQi5 DpQgJSHuosVswBijPTR3b3Nw Lz48 U08hIDdpHXQlQXTwMSWiQVSg pFdwef4amD5uNe7+LQ6wd4sv nv04eX83cHE+SXYcLTH0yDpe PSdw IKTonZ9gQGykOuH9XQTbUySr qX93wQYlKLcrYg7kfEplyPnq IV7mERDltbeeh170XfHgg5pb IDEw iPWeLQbwNBU7P23wo5U1XXJl RKQaDUW1mRP1cN7mxShfigqf bGVmdDsgdmVydGljYWwtYWxp Z246 IHRvcDsnPlBhdGllbnQgTmFt URk7E9RhUel7ZOBxtMomYW3x wEToBSkbSr2uoRxtqSygYL4s NTBp lrwsf426JdCki4ojKTUphIBn NYcbOEA4P85qk3R6IVKqMNNf MHO1pGZ6rM4upNfqojulgTJw dDsg hyGjzPztQVntOIxfY544IVIi aVlrSuBpcsPwQFXdwNF6EM39 VX13kWVek0A8qMN1T3JoXPBo bmct ektrfAJ8CQEvGDSauH66Jq3x rNucVm1eNBKzOMC4MFUdhSMy Z6AhxL0uRpIjIGIzXGHpT1Md eHQt HBlvJ577QIxsGsU1UFDdixOq L5IgIYWkrAyvRaD4l1V3Ow1A C7N7OJ83CD32dQTnr8J0sXG3 J3Bh UZIsoifjlspwyPW8ZEKfWERh gX01Yj6pkWebYo2fMQHeJIX8 VXUnmJNoE7JyrX5cOuBsPMIb MDAw J1FezBNnCWsdS570NGpiEkA3 ZAVfvwCxT3FhMZMwnVquRzQ4 x2Z9Cl3HVDd8HK72BW03mUQh c3R5 iLD7H7BnYLZzrinzvggcvMV2 HHHoPCQjnF35Qy0suOitWj8m QSUpNTI8LSSfaACdT0PppW3p OiAj VQUlTPAtZ1GreBSlTEitB318 TIcjEaB5OVJdyrKfT9TgRAKr uTzkIcB0h9E3Dx8ZGENzNI90 IFR5 mOF5PK36VS38L4XkAtpwtBTq bGU+PHRhYmxlIHdpZHRoPScx KKAgWhVuySyuGT6iMa4oXWAm LWNv zJrhjEChDrTen9nbOFZkPIua CY6qbWhnF9PmyTC8PJTmv5q2 Yx13S28yW5YpcCB+PGNvbCB3 aWR0 gL8jXaDoAoX5XDimB169XcLn vBJdMlokj3skh7jpyIo5VgI3 JRVoweOanIfyGWN9y3TtYq69 Y29s IHdpZHRoPSIxNSUiIHZhbGln ag3lhB3xQi8+JDQdaUH0tBZ6 tV2dRiGsWhH5UDebU357UzMe cCIv Tlqla5ujo5nsfSl7IpJvXLHk vwMlbYvnXLJ9b6RmAq13H4De bZkzo4IdBuu2ya31sDSfh2H5 bGU9 B1PcXGKprlitnSZkmIbiXV6i WFWfmhtyASBnxW7gOPUiS4c0 ZaPrBmL6SXwuG8JlpxZ2ZHYh cHQg WBokQKC2Q35hj3M4HDEuXJQy BQF7hUI3mZ5eiMvsrbjywTNn uBffgtJgoYebFOdzBZwqL979 IHRv fNdnYDCdeP0gZFIymUFkxOho BD9zESFksryfXl8ATPaWIFro Yb3LKFcnaHK+ZXLnWDA6iNbf PSdw TAFwgM8rAVSfR9k8EaNhNpW4 QVekO9PoARSrjqmkHx72iD1b XqBsXvZ1IWihM9MvbsB7AGVq cHQg WUxeDVP7O26jg0H5JSMgIHKo SSU1qLH2eN2pfAecfrdodFEt xGgtbnPysUlkZDqcEQbvA696 IHRv vXvwXdZrDhT5MuN5ABZ5C4Nj Hmb2DMQhqBkcRJ3dnSWmATqk Da5xjQfqdEahDC3nXAVbbdmd YWRk zN2bGQEdlKDxpXmeXP9zDIBn anakz554IeOiNMO6FMFiwSQd U0InaM9aWeSmTPVkSTNiO4Xf eHQt RRwuZ907OZikDlZ4ZIPlgkGt O6SwJRPstNstEeS7c3U8Hs60 NiBZZWFyczwvdGQ+PHRkIHN0 eWxl CRjlLFLefM8gLSRbA4r0RmFx XlF3QGxrR2CsCWTnxsylCk69 dM6qMqWbZyM7UVufZ2YfzgU7 IDEw wJAuZXnlXFL7X82yh1R6ZOVd SUWnTEM1mIT2bK0zgZucwphi bGVmdDsgdmVydGljYWwtYWxp Z246 IHRvcDsnPkZlbWFsZTwvdGQ+ CMTiBEA9wYanXCnpAHNgnG1o CCLtI6f6DbBwGuZ4XWofR1Mi ZGRp qsqtIe96uY2dAaVzBgH7TMur A7KaadZ9ZJOjnENpSQmdQWI4 X51bz8Q6VWHvPCXrIJR6hKP9 dC1h bGlnbjogbGVmdDsgdmVydGlj IVihUPhrQ914DCYonBetSt8f o3RrnnF4nQ6hTA02DN87R9Cw Pjwv dGFibGU+PHRhYmxlIHdpZHRo DYqnOUUjXlZomXhgJR3aYn7r GISbUDGmhQcjcFJrTmLdd5kw YXBz CGbuBC0bvEiyT7BsdYQ2HUJv m2w2Fh36M64iP2HafSW+PGNv oGC4fTJ3qP1fIoWaHoY3ECty Z249 GrAmaXWsEooyy3iba1okxYs1 VaMjZOXjkfTnhVfpQAH3i4Sz Xs04R49qGRwpGCWjPCPeUZLe IHZh gMcwqu2sgL1kLz4+PGNvbCB3 vQI6cZ0tQvDrJfN5ASvsC463 AdCjnVQeFrvqC55nT2GjsBJ+ PHRy Tmc7KVNfnKtcVX8lgUPnCNma Nl3sSQU5EyJgTxJyFXskA2We DTTodlntgywpbNB2VQBjSJAg aW47 Ce6yqCjlUo3tEEBwSAE5JXWc oTBnC1TeuN8sAbSdSCFrFIZz W8DhrLHaGIzsB041XKxjJmO2 IHZl rkDdE3HfXAXvxMvmAxN4s8T1 Au6JgSclqQTdER7lAxUgEUn2 J0QeFwb0EEUxrEdkAJ5dkVBw ZGlu Jz8ulDbsgRjeTC5gPDGbplku w476PsXcp5mvVBQpjXKcTXmz MEH1A95gd6R5WMUuTJRqEAN3 dGV4 uU7cdSqjzhtpdQSxnGtpuqAf rRpkDVmsIWoeY326RYNdwTne KdQOQxg9V9UzZwt8ECDjoPeo ZT0n eMLlEIjcRl5haYvzoNudGG2f CNPutrdvs071XfVnw9zcSULv qTMyYEwuAYH8A71xp8Z5NEXq MDAw OPI8kHW2aS3ufFvvskptpNNs oFnvmzPhtZfgKIniALvzQ398 YDVzhQsmYs8SYti0X8DhBkb9 ZCBz mEbpLL1nmGNmAZedKo6ftOdj tWggSM2fQZFyvzqve355MyJc f0gwORUmyQRvBIxkBOK7I29i b3I6 FQIeNEIwRCE1uBV7yH3mkQrn bjogbGVmdDsgdmVydGljYWwt QCzsP633FYDtgDytUfGgcLFe Ojwv dGQ+NG26rp72G3KiJxhqMib5 CHSrFCT3nSM3hT0dDGBtXPkr v4A2nOI0X1HiwtYyga0it1vx YXBz ZTog (more content not included)... [facility] IntraOperative Documentson 0 09-27-2021 IntraOperative Documents [id number]: 127 [facility] Main OR Intraoperative Recor don 09-22-2021 Main OR Intraoperative Record IntraOp Document Type FT Summary Primary Physician: Cas Severino DO Finalized Date/Time: 09/22/21 09:12:48 Pt. Name: ANNE KEMP [place]/Sex: 1955 Female Med Rec #: [id number] Physician: Cas Severino DO Financial #: [id number] Pt. Type: O Room/Bed: [place] [address] Admit/Disch: 09/19/21 08:30:31 - 09/21/21 12:20:00 Institution: Case Times FT Entry 1 Patient Times In Room 09/19/21 10:58:00 Out Room 09/19/21 13:18:00 Procedure Times Start 09/19/21 11:38:00 Stop 09/19/21 13:13:00 Anesthesia Times Start 09/19/21 10:58:00 Stop 09/19/21 13:18:00 Block Timeout w/ 09/19/21 10:05:00 Anesthesia Last Modified By: Gila Armas RN 09/19/21 13:18:18 General Comments: Block info: Kody Kingston CRNA RN assisting. [id number], HR 64, SpO2 98% RA. Chris ROCHA 09/22/21 Chart opened to review and send charges [facility] Case Attendance FT Entry 1 Entry 2 Entry 3 Case Attendee Luis M Delgado CRNA, DO, David A Roth CST, Liane E Role Performed THREAD SINGER Surgeon - Primary TOSSER/SA Time In 09/19/21 10:58:00 09/19/21 10:58:00 09/19/21 10:58:00 Time Out 09/19/21 13:18:00 09/19/21 13:18:00 09/19/21 13:18:00 Procedure KNEE TOTAL ARTHROPLASTY KNEE TOTAL ARTHROPLASTY KNEE TOTAL ARTHROPLASTY REVISION(Left) REVISION(Left) REVISION(Left) Comments Last Modified By: Pawel TOSSER, Lizet Armas RN, Gila Dover RN 09/22/21 09:09:17 09/19/21 13:24:05 09/19/21 13:24:05 Entry 4 Entry 5 Entry 6 Case Attendee Jaleesa TOSSER, José Miguel Cristobal TOSSER, Renetta Armas RN, Gila Hebert Role Performed Scrub - Primary Staff - Other Junior Web Developer - Primary Time In 09/19/21 10:58:00 09/19/21 [...] Delgado CRNA, Given Participants Cas Severino DO, Pawel TOSSER, Lizet Hebert, Jaleesa TOSSER, José Miguel Mckeon, Pawel ROCHA, Levar Moreland CST, Renetta Joe Time Out Complete 09/19/21 11:32:00 Outcomes Met? Yes Last Modified By: Gila Armas RN 09/19/21 11:43:57 Post-Care Text: The patient is free from signs and symptoms of injury caused by extraneous objects General Comments: Reps present for time out. Chris ROCHAparts specialist Information FT Pre-Care Text: Verifies allergies Entry [...] injury due (more content not included)... Normal [facility] Auto Diffon 09-21-2021 Basophils/100 WBC (Bld) 0.0 % Normal 0.0-2.0 [facility] Comment on above: Order Comment: Order Added by Discern Expert. Performed By: #### 2 755089, 0394568, 8102316, 4249182, 2567032, 96480699 ####[address] [place] [address] Basophils/Leukocytes Auto (Bld) [Pure # fraction] 0.0 E9/L Normal 0.0-0.2 [facility] Comment on above: Order Comment: Order Added by Discern Expert. Performed By: #### 2 975434, 3498885, 0245328, 6671114, 2774000, 06303723 ####[address] [place] [address] Eosinophils/100 WBC (Bld) 0.2 % Normal 0.0-8.0 [facility] Comment on above: Order Comment: Order Added by Discern Expert. Performed By: #### 2 196971, 7214317, 7671151, 9717484, 5691839, 90400194 ####[address] [address] Eosinophils/Leukocyt es Auto (Bld) [Pure # fraction] 0.0 E9/L Normal 0.0-0.5 [facility] Comment on above: Order Comment: Order Added by Discern Expert. Performed By: #### 2 389422, 5514302, 4312631, 9230832, 2153944, 82724042 ####[address] [address] Lymphocytes/100 WBC (Bld) 7.3 % Low 14.0-50.0 [facility] Comment on above: Order Comment: Order Added by Discern Expert. Performed By: #### 2 593123, 9762639, 1729813, 4897006, 1932563, 71199909 ####[address] [place] [address] Lymphocytes/Leukocyt es Auto (Bld) [Pure # fraction] 1.0 E9/L Normal 1.0-4.0 [facility] Comment on above: Order Comment: Order Added by Discern Expert. Performed By: #### 2 906601, 2108797, 8758639, 7354706, 8264876, 69788805 ####[facility] [address] [place] [address] Monocytes/100 WBC (Bld) 11.0 % Normal 4.0-14.0 [facility] Comment on above: Order Comment: Order Added by Discern Expert. Performed By: #### 2 071153, 2935509, 5808984, 3506166, 3878798, 75542718 ####[address] [place] [address] Monocytes/Leukocytes Auto (Bld) [Pure # fraction] 1.5 E9/L High 0.2-1.0 [facility] Comment on above: Order Comment: Order Added by Discern Expert. Performed By: #### 2 789708, 0035812, 6726174, 1746557, 9659778, 52597937 ####[address] [address] Neutrophils/100 WBC (Bld) 81.5 % High 36.0-75.0 [facility] Comment on above: Order Comment: Order Added by Discern Expert. Performed By: #### 2 297300, 4767141, 1756998, 2793351, 6802382, 87614269 ####[address] [place] [address] Neutrophils/Leukocyt es Auto (Bld) [Pure # fraction] 10.8 E9/L High 2.0-7.5 [facility] Comment on above: Order Comment: Order Added by Discern Expert. Performed By: #### 2 108054, 9579067, 3834892, 7621792, 7299023, 18394447 ####[address] [place] [address] BUNon 09-21-2021 Urea nitrogen [Mass/Vol] 7 mg/dL Normal 5-21 [facility] Comment on above: Performed By: #### 2 276737, 5560798, 6612662, 3290722, 1924226, 13425753 ####[address] [place] [address] CBC w/ Auto Diffon Erythrocyte distribution width (RBC) [Ratio] 13.4 % Normal 10.9-14.2 [facility] Comment on above: Performed By: #### 2 682774, 1077132, 9899605, 7673893, 7430805, 54302274 ####[facility] [address] [place] [address] Hematocrit (Bld) [Volume fraction] 34.6 % Normal 34.0-46.0 [facility] Comment on above: Performed By: #### 2 235812, 8420017, 7780828, 7488554, 4013875, 56538567 ####[facility] [address] [place] [address] Hemoglobin (Bld) [Mass/Vol] 11.9 g/dL Low 12.0-16.0 [facility] Comment on above: Performed By: #### 2 942448, 1993616, 8278559, 3003816, 6251965, 10499326 ####[facility] [address] [place] [address] MCH (RBC) [Entitic mass] 30.7 pg Normal 27.0-34.0 [facility] Comment on above: Performed By: #### 2 399264, 3841766, 0577382, 1708911, 1229198, 27664817 ####[facility] [address] [place] [address] MCHC (RBC) [Mass/Vol] 34.5 g/dL Normal 31.4-36.0 [facility] Comment on above: Performed By: #### 2 949832, 0092554, 0184200, 6724990, 8310657, 54341204 ####[address] [place] [address] MCV (RBC) [Entitic vol] 88.9 fL Normal 80.0-100.0 [facility] Comment on above: Performed By: #### 2 540946, 3875311, 0826869, 6336748, 2730070, 94644251 ####[facility] [address] [place] [address] Platelet mean volume (Bld) [Entitic vol] 6.9 fL Normal 6.4-10.8 [facility] Comment on above: Performed By: #### 2 726684, 2642716, 9702891, 5774907, 4269887, 15787370 ####[facility] [address] [place] [address] Platelets (Bld) [#/Vol] 337.0 E9/L Normal 150.0-500.0 [facility] Comment on above: Performed By: #### 2 286895, 3425009, 4796215, 4133154, 8376343, 65030477 ####[facility] [address] [place] [address] RBC (Bld) [#/Vol] 3.9 E12/L Low 4.3-5.9 [facility] Comment on above: Performed By: #### 2 068939, 7624007, 2099279, 8486134, 4571836, 85879592 ####[facility] [address] [place] [address] WBC corrected for nucl RBC Auto (Bld) [#/Vol] 13.3 E9/L High 4.0-11.0 [facility] Comment on above: Performed By: #### 2 314276, 7077401, 9874112, 7735038, 9505598, 65170723 ####[facility] [address] [place] [address] CHEMISTRYOrdered By: SYSTEM SYSTEM on 09-21-2021 Anion gap [Moles/Vol] 15 mmol/L Normal 6 - 16 mEq/L [facility] Remisol Chloride [Moles/Vol] 95 mmol/L Low 101 - 1 11 mmol/L [facility] Remisol CO2 [Moles/Vol] 25 mmol/L Normal 21 - 31 mmol/L [facility] Remisol Creatinine [Mass/Vol] 0.6 mg/dL Normal 0.5 - 1.3 mg/dL [facility] Remisol GFR/1.73 sq M.predicted among blacks MDRD (S/P/Bld) [Vol rate/Area] mL/min/1.73 m2 Normal >=59mL/min/ 1.73 m2 [facility] Chem S GFR/1.73 sq M.predicted among non-blacks MDRD (S/P/Bld) [Vol rate/Area] mL/min/1.73 m2 Normal >=59mL/min/ 1.73 m2 [facility] Chem S Potassium [Moles/Vol] 4.1 mmol/L Normal 3.5 - 5.3 mmol/L [facility] Remisol Sodium [Moles/Vol] 131 mmol/L Low 135 - 145 mmol/L [facility] Remisol Urea nitrogen [Mass/Vol] 7 mg/dL Normal 5 - 21 mg/dL [facility] Remisol Creatinineon 09-21-2021 Creatinine [Mass/Vol] 0.6 mg/dL Normal 0.5-1.3 [facility] Comment on above: Performed By: #### 2 186293, 7287728, 7510085, 7534914, 1498936, 04755069 ####[facility] [address] [place] [address] Discharge Instructionson Discharge Instructions [id number]#1.00CD: 127 Normal [facility] Discharge Note-Nursingon Discharge Note-Nursing ANNE KEMP [...] When: 10/18/2021 03:00 PM EDT Where: [address] [place] [address]- Business (1) Follow Up with YARITZA MUELLER When: In 0 days Where: [address] [place] [address] [phone] Business (1) Medications What How Much When [...] Twice a day (after meals) Pickup at [address] NEEDED Unchanged cannabidiol By Mouth Every day 09/22 @ 9 AM Unchanged cholecalciferol (Vitamin D 1000 intl units (25 mcg) Tab) 1 Tablets By Mouth Every day 09/22 @ 9 AM Unchanged docusate (Colace 100 mg Cap) 1 Capsules By Mouth 2 times a day as needed for for constipation Pickup at [address] Unchanged hydroxychloroquine (hydroxychloroquine 200 mg Tab) [...] 1,000 Milligram By Mouth Every day 09/22 9 AM Unchanged oxycodone (oxyCODONE 5 mg Tab) 1 Tablets By Mouth Every 6 hours 1-2 po q4-6 hrs prn pain Dx: M17.12, Z96.652 Duration: 7days Disregard si po q6hr prn pain Pickup at [address] NEEDED Unchanged quetiapine (SEROquel 25 mg Tab) 09/22 @ 9 PM Unchanged Turmeric (turmeric 500 mg oral capsule) 1 Capsules By Mouth Every day 09/22 @ 9 AM Unchanged venlafaxine (venlafaxine 150 mg Cap-ER) 1 Capsules By Mouth Every day 09/22 @ 9 AM Pharmacy Information [address]: [address] [place] [address] [phone] Test Results CBC BMP WBC: 13.3 E9/L [...] POSTERIOR STABIL (more content not included)... [facility] HEMATOLOGYOrdered By: SYSTEM SYSTEM on 09-21-2021 [...] Nick e Manageron 09-21-2021 Interdisciplinary Note - Esol Instructor CRM to discuss DC plans with patient. [...] her FWW is present. CRM following. Normal [facility] Comment on above: Result Comment: Elec tronically Signed By: Payton Ordaz\.caro\Date and Time Signed: 09/21/21 09:39 EDT Lyteson 09-21-2021 Anion gap [Moles/Vol] 15 mmol/L Normal 6-16 [facility] Comment on above: Performed By: #### 2 599122, 5754060, 1756271, 9711318, 4350588, 22629057 ####[facility] [address] [place] [address] Chloride [Moles/Vol] 95 mmol/L Low 101-111 [facility] Comment on above: Performed By: #### 2 430319, 1862573, 7267884, 0855055, 7086942, 38648471 ####[facility] [address] [place] [address] CO2 [Moles/Vol] 25 mmol/L Normal 21-31 [facility] Comment on above: Performed By: #### 2 374540, 1513394, 1132250, 5676548, 4531036, 42988068 ####[facility] [address] [place] [address] Potassium [Moles/Vol] 4.1 mmol/L Normal 3.5-5.3 [facility] Comment on above: Performed By: #### 2 568323, 8379125, 7431679, 1708604, 6951812, 55932290 ####[facility] [address] [place] [address] Sodium [Moles/Vol] 131 mmol/L Low 135-145 [facility] Comment on above: Performed By: #### 2 134367, 8686380, 9413718, 0855002, 5949954, 91368133 ####[facility] [address] [place] [address] Operative Reporton Operative Report SURGERY DATE: 2021 PACKING SUPERVISOR: Lizet Armas, Certified Home Health Cna PREOPERATIVE DIAGNOSIS: Failed left knee medial unicompartmental [...] soft tissue COMPLICATIONS: None DRAINS: None IMPLANT: [place] total knee system with a size 4 [...] is prep (more content not included)... Normal [facility] Comment on above: Result Comment: Elec [...] made to ensure accuracy, however, inadvertently computerized medical transcriptionist mistakes may be present. Subjective She states [...] Lymph Auto: 7.3 % Low (09/21/21 04:41:00) [place] Auto: 11 % (09/21/21 04:41:00) Eos Auto: 0.2 % (09/21/21 04:41:00) Basophil Auto: 0 % (09/21/21 04:41:00) Neutro Absolute: 10.8 E9/L High (09/21/21 04:41:00) Lymph Absolute: 1 E9/L (09/21/21 04:41:00) [place] Absolute: 1.5 E9/L High (09/21/21 04:41:00) Eos Absolute: 0 E9/L (09/21/21 04:41:00) Basophil Absol (more content not included)... Normal [facility] Comment on above: Result Comment: Elec tronically Signed By: Ashlyn PETERSON\.br\Date and Time Signed: 09/21/21 09:03 EDT\.br\Electronically Co-Signed By: NENA GAMEZ, Brijesh\.br\Date and Time Co-Signed: 09/21/21 09:52 EDT eGFRon 09-21-2021 GFR/1.73 sq M.predicted among blacks MDRD (S/P/Bld) [Vol rate/Area] mL/min/{1.73_m2} Normal >=59 [facility] Comment on above: Order Comment: Order added by Discern Expert. Result Comment: eGFR is race adjusted. AA=. Performed By: #### 2 722423, 5972008, 9989144, 4281305, 5807963, 13597854 ####[facility] [address] [place] [address] GFR/1.73 sq M.predicted among non-blacks MDRD (S/P/Bld) [Vol rate/Area] mL/min/{1.73_m2} Normal >=59 [facility] Comment on above: Order Comment: Order added by Discern Expert. Result Comment: Consumer Marketing Specialist josesito kidney disease could be indicated at eGFR's of less than 60 mL/min/1.73m2. Kidney failure is indicated at less than 15 mL/min/1.73m2. Performed By: #### 2 662366, 3503772, 2499842, 3162223, 5579759, 09981565 ####[facility] [address] [place] [address] Auto Diffon 09-20-2021 Basophils/100 WBC (Bld) 0.2 % Normal 0.0-2.0 [facility] Comment on above: Order Comment: Order Added by Discern Expert. Performed By: #### 2 809251, 8910490, 9345447, 06562554, 3029609, 9701420 ####[facility] [address] [place] [address] Basophils/Leukocytes Auto (Bld) [Pure # fraction] 0.0 E9/L Normal 0.0-0.2 [facility] Comment on above: Order Comment: Order Added by Discern Expert. Performed By: #### 2 336462, 9343861, 5655388, 37673925, 1594729, 6036890 ####[address] [place] [address] Eosinophils/100 WBC (Bld) 0.2 % Normal 0.0-8.0 [facility] Comment on above: Order Comment: Order Added by Discern Expert. Performed By: #### 2 024074, 6923293, 0438073, 11220780, 2275262, 2027343 ####[address] [address] Eosinophils/Leukocyt es Auto (Bld) [Pure # fraction] 0.0 E9/L Normal 0.0-0.5 [facility] Comment on above: Order Comment: Order Added by Discern Expert. Performed By: #### 2 066139, 9220031, 6169666, 69506178, 9187059, 3734111 ####[address] [address] Lymphocytes/100 WBC (Bld) 15.6 % Normal 14.0-50.0 [facility] Comment on above: Order Comment: Order Added by Discern Expert. Performed By: #### 2 921237, 1381348, 6837210, 73443071, 6192524, 7416950 ####[address] [address] Lymphocytes/Leukocyt es Auto (Bld) [Pure # fraction] 1.4 E9/L Normal 1.0-4.0 [facility] Comment on above: Order Comment: Order Added by Discern Expert. Performed By: #### 2 349679, 6157790, 5804830, 56400278, 8198682, 2395596 ####[address] [place] [address] Monocytes/100 WBC (Bld) 12.8 % Normal 4.0-14.0 [facility] Comment on above: Order Comment: Order Added by Discern Expert. Performed By: #### 2 592307, 6693751, 2046003, 01955709, 6223346, 9748372 ####[facility] [address] [address] Monocytes/Leukocytes Auto (Bld) [Pure # fraction] 1.1 E9/L High 0.2-1.0 [facility] Comment on above: Order Comment: Order Added by Discern Expert. Performed By: #### 2 282498, 7894566, 2895577, 07890910, 9904837, 7099454 ####[address] [address] Neutrophils/100 WBC (Bld) 71.2 % Normal 36.0-75.0 [facility] Comment on above: Order Comment: Order Added by Discern Expert. Performed By: #### 2 701367, 4538592, 4656283, 43220345, 6114128, 7994578 ####[address] [address] Neutrophils/Leukocyt es Auto (Bld) [Pure # fraction] 6.4 E9/L Normal 2.0-7.5 [facility] Comment on above: Order Comment: Order Added by Discern Expert. Performed By: #### 2 129515, 8563175, 0071921, 51576963, 4325936, 7634765 ####[address] [address] BUNon 09-20-2021 Urea nitrogen [Mass/Vol] 9 mg/dL Normal 5-21 [facility] Comment on above: Performed By: #### 2 927348, 2648411, 8963263, 27228386, 9544329, 6764074 ####[address] [place] [address] Blood Bank Slipon 09-20-2021 Blood Bank Slip [id number]#1.00CD: 127 Normal [facility] CBC w/ Auto Diffon Erythrocyte distribution width (RBC) [Ratio] 13.5 % Normal 10.9-14.2 [facility] Comment on above: Performed By: #### 2 994229, 9494432, 3722240, 96165405, 6500285, 2126417 ####[address] [place] [address] Hematocrit (Bld) [Volume fraction] 29.0 % Low 34.0-46.0 [facility] Comment on above: Performed By: #### 2 149786, 9045771, 5967523, 89023915, 8502295, 9851818 ####[address] [address] Hemoglobin (Bld) [Mass/Vol] 10.1 g/dL Low 12.0-16.0 [facility] Comment on above: Performed By: #### 2 711743, 6323455, 7902748, 94322121, 9087691, 6213537 ####[address] [address] MCH (RBC) [Entitic mass] 31.3 pg Normal 27.0-34.0 [facility] Comment on above: Performed By: #### 2 843581, 8340259, 2679741, 69588750, 1477032, 7994255 ####[address] [address] MCHC (RBC) [Mass/Vol] 34.8 g/dL Normal 31.4-36.0 [facility] Comment on above: Performed By: #### 2 581868, 4976845, 2393261, 63642727, 1327263, 3354497 ####[address] [address] MCV (RBC) [Entitic vol] 89.7 fL Normal 80.0-100.0 [facility] Comment on above: Performed By: #### 2 567918, 9575655, 3829021, 18937776, 7591225, 7622554 ####[address] [address] Platelet mean volume (Bld) [Entitic vol] 6.7 fL Normal 6.4-10.8 [facility] Comment on above: Performed By: #### 2 245380, 6181818, 5123600, 76629270, 0461914, 3823495 ####[facility] [address] [place] [address] Platelets (Bld) [#/Vol] 294.0 E9/L Normal 150.0-500.0 [facility] Comment on above: Performed By: #### 2 762417, 8113285, 5434966, 43645131, 6407710, 4964304 ####[facility] [address] [place] [address] RBC (Bld) [#/Vol] 3.2 E12/L Low 4.3-5.9 [facility] Comment on above: Performed By: #### 2 815145, 9245986, 9886977, 97913130, 4888061, 1156782 ####[facility] [address] [place] [address] WBC corrected for nucl RBC Auto (Bld) [#/Vol] 8.9 E9/L Normal 4.0-11.0 [facility] Comment on above: Performed By: #### 2 841846, 5188201, 7667916, 02678590, 8084053, 4113467 ####[facility] [address] [place] [address] CHEMISTRYOrdered By: SYSTEM SYSTEM on 09-20-2021 Anion gap [Moles/Vol] 8 mmol/L Normal 6 - 16 mEq/L [facility] Remisol Chloride [Moles/Vol] 106 mmol/L Normal 101 - 1 11 mmol/L [facility] Remisol CO2 [Moles/Vol] 28 mmol/L Normal 21 - 31 mmol/L [facility] Remisol Creatinine [Mass/Vol] 0.8 mg/dL Normal 0.5 - 1.3 mg/dL [facility] Remisol GFR/1.73 sq M.predicted among blacks MDRD (S/P/Bld) [Vol rate/Area] mL/min/1.73 m2 Normal >=59mL/min/ 1.73 m2 [facility] Chem S GFR/1.73 sq M.predicted among non-blacks MDRD (S/P/Bld) [Vol rate/Area] mL/min/1.73 m2 Normal >=59mL/min/ 1.73 m2 [facility] Chem S Potassium [Moles/Vol] 4.2 mmol/L Normal 3.5 - 5.3 mmol/L [facility] Remisol Sodium [Moles/Vol] 138 mmol/L Normal 135 - 145 mmol/L [facility] Remisol Urea nitrogen [Mass/Vol] 9 mg/dL Normal 5 - 21 mg/dL [facility] Remisol Consent for Anesthesiaon Consent for Anesthesia [id number]#1.00C D:127 Normal [facility] Creatinineon 09-20-2021 Creatinine [Mass/Vol] 0.8 mg/dL Normal 0.5-1.3 [facility] Comment on above: Performed By: #### 2 236225, 7722588, 2318592, 25468882, 8044276, 4905797 ####[facility] [address] [place] [address] HEMATOLOGYOrdered By: SYSTEM SYSTEM on 09-20-2021 Basophils/100 [...] Nick e Manageron 09-20-2021 Interdisciplinary Note - Esol Instructor CRM to discuss DC plans with patient. [...] Patient had elevated BP, uncontrolled pain Normal [facility] Comment on above: Result Comment: Elec tronically Signed By: Payton Ordaz\.caro\Date and Time Signed: 09/20/21 15:12 EDT Interdisciplinary [...] inpatient OT services at this time. Normal [facility] IntraOperative Documentson 0 09-20-2021 IntraOperative Documents [id number]#1.00C D:127 Normal [facility] IntraOperative Documents [id number]#1.00C D:127 Normal [facility] Lyteson 09-20-2021 Anion gap [Moles/Vol] 8 mmol/L Normal 6-16 [facility] Comment on above: Performed By: #### 2 515438, 7553513, 2732743, 32289914, 6193406, 0335360 ####[facility] [address] [place] [address] Chloride [Moles/Vol] 106 mmol/L Normal 101-111 [facility] Comment on above: Performed By: #### 2 821456, 5337421, 8658083, 53535446, 6457390, 7146989 ####[facility] [address] [place] [address] CO2 [Moles/Vol] 28 mmol/L Normal 21-31 [facility] Comment on above: Performed By: #### 2 801716, 8589509, 8221798, 50181701, 8874598, 8242648 ####[facility] [address] [place] [address] Potassium [Moles/Vol] 4.2 mmol/L Normal 3.5-5.3 [facility] Comment on above: Performed By: #### 2 026466, 1476839, 6933978, 53616805, 7270496, 3334303 ####[facility] [address] [place] [address] Sodium [Moles/Vol] 138 mmol/L Normal 135-145 [facility] Comment on above: Performed By: #### 2 332732, 5097372, 2854474, 49903626, 0532045, 8217497 ####[facility] [address] [place] [address] Operative Reporton Operative Report SURGERY DATE: 2021 [...] the proposed procedure. ALYSE Campuzano Dictated: 09/19/2021 [id number] Transcribed: 09/19/2021 Normal [facility] Comment on above: Result Comment: Elec tronically Signed By: Luis M Delgado CRNA.br\Date and Time Signed: 09/20/21 08:18 EDT Preoperative Documentson Preoperative Documents [id number]#1.00C D:127 Normal [facility] Preoperative Documents [id number]#1.00C D:127 Normal [facility] eGFRon 09-20-2021 GFR/1.73 sq M.predicted among blacks MDRD (S/P/Bld) [Vol rate/Area] mL/min/{1.73_m2} Normal >=59 [facility] Comment on above: Order Comment: Order added by Discern Expert. Result Comment: eGFR is race adjusted. AA=. Performed By: #### 2 888759, 9886179, 1547529, 32975012, 7907040, 2986527 ####[facility] [address] [place] [address] GFR/1.73 sq M.predicted among non-blacks MDRD (S/P/Bld) [Vol rate/Area] mL/min/{1.73_m2} Normal >=59 [facility] Comment on above: Order Comment: Order added by Discern Expert. Result Comment: Consumer Marketing Specialist josesito kidney disease could be indicated at eGFR's of less than 60 mL/min/1.73m2. Kidney failure is indicated at less than 15 mL/min/1.73m2. Performed By: #### 2 880683, 5665771, 9397358, 47115328, 1177208, 5876038 ####[facility] [address] [place] [address] ABO/Rhon 09-19-2021 ABO/Rh Positive Invalid Interpretation Code [facility] Comment on above: Performed By: #### 1 8037611, 04517075, 59412050, 1020769 ####[facility] [address] [place] [address] ABO/Rh History Checkon 09-19 ABO/Rh History Check Verified Hx Blood Type Normal [facility] Comment on above: Performed By: #### 1 5754204, 77678772, 54853192, 9064895 ####[facility] [address] [place] [address] ABSCon 09-19-2021 ABSC Gel Interp Negative Normal [facility] Comment on above: Performed By: #### 1 7556643, 46379675, 62951300, 0811313 ####[facility] [address] [place] [address] BLOOD BANKOrdered By: Angelica ellis on 09-19-2021 ABO/Rh Interp Positive Invalid Interpretation Code [facility] BB Subsection ABSC Gel Interp Negative (09/19/21 9:00 AM) Normal [facility] BB Subsection Blood Bank ID#on 09-19-2021 BBID# [id number] Invalid Interpretation Code [facility] Comment on above: Performed By: #### 1 2556280, 98016125, 18257639, 7048913 ####[address] [place] [address] Coding Summary.on 09-19-2021 Coding Summary. CD:[id number] Gh0b Ww+PGhlYWQ+FH7KHELsW94bj LGcgK0MZ5fQJV0DXICIGMMIP G1DTL2svNN7PTbbS8GcbbVg QluuzMAtJH03HXi3YVR5mLmr FHagfO2qkZMtS7p7TeIcRL15 aM49ZFqcARNuJoC9KcUicldl bWFy L1pcIzOorXSdGet+PHRhYmxl IHdpZHRoPScxMDAlJyBzdHls CC8kFo2uXJCbSFFjiKufyYOu OiBj h6thMAZpYFnmCU1tiEmxD9Lb hTR6TCRgm9h8Ik49hQC+PHRk MRQ1cQixZXrmd629ToOto5xb IDM3 uYKuIAwmLHV5H26ah3S3WSBs EYHuSKO2sGD2oY6nfRmzknyb N7RofODwOoX3ZAI0kXIjaP6d bGln jglmuB4eZps+Q12LTT3MHAUN KD5QUxb6D7YbKnyavML+PC90 QAWcJW09wDZubYUtg8jbdTi1 JzEw PAKmUIY7qCcbYRlbe2RfTNLz Y65zoCByn5V4HHBtaBugoLEp YiVytXA3xE2mYIgfphnjg2tx dzsn Emjfg1qmjx66pT33N92qXFgi OHNtALH3DZLcEHEwtVqbqg8l tZ3gGp1+PTgjp0iuf3myjMp7 IjIw ZDLmrkPiiSmrUAG6r6ZgAe42 Z3HkiXbxg4NqZyu2no99jHDm t8T5wZS1LKdtCWMqrA2uSMnn ZnQ6 BFSaQfOetS22oWCtKAkpHz1u nBonqMzmRO9qQPUdxjwjKGZl oX5yGYRtjDAftYmqAE4lVEPv bjtm m615TjBuCPD7TQCfgJHpY0Gw jQ5yKuQdASLlUVWsO3DmtWPo LSifI509WSljSzW5FDLohgHk Y2Fs KBDwcZmyRkL4e7I1Tj5Fy0Xq bnxsPLA5NKonKYO7ElPcMyVu GmK7Q4HqDjm5SKGylNpkAK7e J3Bh SOGoicemrsezuBD8OIVbDIUt aD36eRStFTukCt2ss6N7x665 TKWuMEDpvL23Az0pyZfoUOXe dCBU cQ2vnbxny1jlujqkXpJaTECv CSg7DJc8QTUwpFqvJrMsMEZ8 QjZ3BFM5aUKnvG3bbIjmnvqr dG9w Oyc+Y21wqH0sZJJ1GGZ6vhjd AVSzudHbOG85XY56O0VhMcfa dGFibGU+MYSbsyMroLdbXC5n YmFj l7jbn9WpLTcbM3YrFSVgJGaw Dxv5CQFcSWR6uRU6fY6nCRYx TGkhg6Z1pPR4Q8McuzRxxh7i b2xs NNBpECxsR09ykVRfh0G5NPCt rQE7KGSpfMcwDhRevG97Yhi+ PBKplRfrr6XfMmkjt0ydo4nc dGg9 CdWfULFijvWimFeyEFT2y5Ql Yn75N65tAHiaVKSpMMMuOKJm XNBqrOtumc5ksF2mLr3+PGNv bCB3 eVN2eX1mRTDsWzT7CJkvA813 RkJayKHpRqlft4fsx5ojwYg2 UvHnQHEmosFaxYkfBYJ3x2Vl Lz48 Y29zPYoxEOZmNQJnCNSaYVMv yLzzpy2joI2mWn3+CD3ua4ps an92xP52uDH+MUZcOUD0oUsy PSdw FUYsqJ8gPOyhBpZ6EEUqEaOy hX25hCFzWYzrIq0yfEomfZyn FE4wVBNdvhwln682QuXsg0ae IDEw lVCwHTpwWZR7I41hi1I3INSm BRDlNUM9lNN3iI0chAyxmuko bGVmdDsgdmVydGljYWwtYWxp Z246 IHRvcDsnPlBhdGllbnQgTmFt EAe0M5WkNpo2JIIgwAkgFH3a nVMuAHezTf4muNabrJybTG2n NTBp ffbkp816JeEnn3apSFXxhBVy PThkFAH4I02cn2N2ANHtIYEu LQY4vRT7oJ3yrMvlawtzeOJe dDsg juTosZgjAFicVUgcG166JRWk xOwsDjOfffKsLDLquDG4EN83 YO21pNXfw6H2sHC9K5ZcJJRs bmct fdexeUS3LPSeROXcdN00Ox8y uKhzIv8pZLQcYHT6GZTrnOFr C2OjoY1fZgEyAPAaGZSnW9Hy eHQt JNtuQ539XIorMjF4IQJfqpNi U1BoBHHmaHbrFpL0f0C6Rb4P D8Z6DM33TZ51tLTct2X4oCM1 J3Bh YRPkowbcykcczVC5JFQbGOAb yT51Bt6diJciNj1hNNIqCBR7 WIAooUBgH3OxkE3qXiByRFWl MDAw Z3QpkQBzEVgdM239LBkkWbO9 HZSydxYnB4VvKOZssBevOmC8 h0L9Fw0DWMz2PM00CA23hCMw c3R5 qZN5S3CkCSWsahzdhithlAZ7 RUYdDYFnuP37Ad6ufZtiXw9h VENbKOK6TZYbqFOrT3WnrV2u OiAj JHSdZTEoI0QkwTDjLLjdJ915 OKicFgO0MQOcncVeY5DjYSCz oCybWxO9n9U9Ig0ZLWHkSI33 IFR5 lCC3XQ68ZK36F2IsMvzhjYOj bGU+PHRhYmxlIHdpZHRoPScx XZCjFpImvVmbOA7oXp0bMDKy LWNv mPaywZCjMdRpa6qvKIRdIFcc EG0nnUnsT2EmjGM6ZPKwc2n6 Wr51E39gL1DiuYP+PGNvbCB3 aWR0 mZ5uLbCuBmU4VJcmJ885DfUy zQPfYpeby4bkf9htaYc6CcE7 QQZxthXksTlaQUC9i7CoAr19 Y29s IHdpZHRoPSIxNSUiIHZhbGln vx0jjF3hMc6+GLIscQG1zZQ3 lY9wArPnXmC0LVguY489VdEb cCIv Hwnku1fsg5nurBe6QqGgRLBo etJguPgyKOS0o9TvEv34Y8Xy hFsgc7MoRqj1ps33uNKkw1M7 bGU9 L3YyVGPerzmysEFguSrlKW0r PVNyxlkaGBSazB9bCPCqQ4v8 UcDlXlL8VKscK2RlxgB7RAGi cHQg EDshVQS1A74mg3G2UUHkEFLe QTD2eIP9vU0skYbykjezlDFk zFtfvtYzdNbvSHhmIDpkL133 IHRv iHlxCLDwsQ7rALOneLPwvNgi PH3mJMShicduGg2LDDwQGJth Xa4UPCraqOW+IBFiYKN0oFvl PSdw QHYepZ6aXNYtB3w9EwWnBjZ4 ZCpgW0ItIHQjdxknFk27bS9l YxJmWoT1OWhrD5VihrD6PIMu cHQg EIccWGK5R13fw0D6FKEfBRLn KBJ7qWL3gW1vaIsvfuhkjLVm gJwcovLcgXptSNjzWSdrI778 IHRv oZpaNyPgEaP3JrR9ZAH7K4Qj Fhs0UHYspNzwYC6jfLZyBHab Nf9edYgyuTttSW3fUIEtrxhu YWRk eC3cDKWsoNFboGlrRD7hHXPc risdf500IgYhGZT3DFZooFGp G9RsyN5eTbWxGKAmFHPfS1Ym eHQt AQuzD173DAgpChE0KNNqjwRe R2YoMGDkgKkgScI3s0S6Lp82 NiBZZWFyczwvdGQ+PHRkIHN0 eWxl PPztBUCicN9oOCUsL8e8EeXl PbV2EZlhJ3JcCCXklyknDu10 nW0cAfOjXxT6QQkmO4SjupI5 IDEw mIYzTTdlOCO3G91pj0W1QAMr KKDnOJX9fPQ1jU5yaKavoboc bGVmdDsgdmVydGljYWwtYWxp Z246 IHRvcDsnPkZlbWFsZTwvdGQ+ LZJfYCP2rYlmRUtyMJLmfE0o CNWfS0l7IlWaPlV0NUbvM5Ds ZGRp whjtIg59uD0kEpFaPdR3QAsy G6MyyzQ3HNIytRWkBAumUYK3 S02tu9M0YMRhDYCsBLS0iFF8 dC1h bGlnbjogbGVmdDsgdmVydGlj FIybVLdoP116AKFhhUcbAz78 kWPkvXbzfzA9A7YsXsjudGN+ PC90 OAVxYR00jYAumETik9apiLv2 AcQaIPChNNH9xGecMYobo1Eg EWKaA12tgKEqs9Y1NCZspDnb cHNl NiUbeJP0vI4hVTfupwudl7zb xujcUicyi9husu65vV87R58d IHdpZHRoPSIzMCUiIHZhbGln bj0i kX8lMs4+SRCmqUI8ePR6nN1t XeYyWlE7UYnrV419DgDkpUKp Yvcjs1jlt7bjeVb7JhFjKXYw dmFs mElcYCW6y8VfAf32X92xIAbf NAZnOHQsDTQkPLDlyCuvaj2y mL0jGh8+EE8ih2xtxe59yB45 dHI+ WTAiFKR7zRnjPVhbYNDbeI0p ITntXgG6FRZeMbJucC10bZMc MAqmUh8efUpdmAjlIA8fNPQk bjtm j465PhCvo2llWINflUFbLCdf HPG3F83lt8P8JQCuSXCaSRT6 vDO4hN8igNlhrsoktPFvmLld dmVy aIphDNeyQKmxH585XBJnaOay HxWpzTDuH9htoqZIXH0rOenl dGQ+RMGhCMR8dClhVXxqAVRi aW5n TIAnS9s2FjDlCxX9EDtwQ0Re pvP5TFMrxVCnYJZxpNHAoN6m rxmxj7efasnpImAaGZFzOXq2 ZXh0 JIZeyZzmTeXuAIS7BwE4VJB6 kTMawD2uvVlkmebdcD4gGcw+ RklOOjwvdGQ+HWVuMGS4hOzx PSdw FLZylA6uPSMmI8k2TsRmYzL7 NWimV6HopoM7RQLqeHBaHVSg qNBRtM3brjosf7tqbtftQpBh MDAw UVg1QBd7YICcfEshPgSgIQM5 TuH5OGQ2gREqsA3uaAheaywr zZ9zZxu+TVJOOjwvdGQ+PHRk IHN0 gBwwMQlqLGXgfM5sRHArH3w7 AxOeNoE7FEjtF6KrnbC8RHOw aGOvEPPjwKCQeE6pnfqzi8uc cjog LjXtRMEzKYs1RRm9RYEqzJis NuXdEGU8UjO0ERK2wRKbnM9o eHxozylxiN7vVgw+NIO7HVW4 PC90 XU91M0WxFwlmwCPlzLX+PHRh YmxlIHdpZHRoPScxMDAlJyBz eXjtVZ9sLf7eLULoOXSgbUuh cHNl OiBj (more content not included)... [facility] Consent for Treatmenton 09-08 Consent for Treatment [id number]#1.00CD: 127 [facility] H&P Updateon 09-19-2021 H&P Update [id number]#1.00CD: 127 [facility] Interdisciplinary Note - Nick e Manageron 09-19-2021 Interdisciplinary Note - Esol Instructor CRM to discuss DC plans with patient. [...] here. CRM called and left message on [employer] line as well as sent email to [employer] for the script for the walker to be sent to [facility]. Plan is for DC 4.13.22 with [facility] program. CRM following [facility] Comment on above: Result Comment: Elec tronically Signed By: Payton Ordaz\.br\Date and Time Signed: 09/19/21 15:25 EDT Main OR PACU I Recordon 09-08 Main OR PACU I Record PACU Phase I Document Type FT Summary Primary Physician: Cas Severino DO Finalized Date/Time: 09/19/21 14:02:37 Pt. Name: ANNE KEMP./Sex: 1955 Female Med Rec #: [id number] Physician: Cas Severino DO Financial #: [id number] Pt. Type: O [facility] Admit/Disch: 09/19/21 08:30:31 - Institution: Case Times [...] By: Jeni Norwood RN 09/19/21 14:02 [facility] Main OR Preoperative Recordo n 09-19-2021 Main OR Preoperative Record PreOp Document Type FT Summary Primary Physician: Cas Seveirno DO Finalized Date/Time: 09/19/21 12:11:01 Pt. Name: ANNE KEMP/Sex: 1955 Female Med Rec #: [id number] Physician: Cas Severino DO Financial #: [id number] Pt. Type: A Room/Bed: [place] [address] Admit/Disch: 09/19/21 08:30:31 - Institution: Case Times [...] By: Gila Armas RN 09/19/21 12:11 [facility] Message from Medicareon 09-08 Message from Medicare [id number]#[id number]: 127 [facility] Monitor Recordon 09-19-2021 Monitor Record [id number]#[id number] :127 [facility] Patient Education - Texton 0 09-19-2021 [...] Keep items that you use often in iesg-wm-hnimc places. Lower the shelves around your home [...] the way. ? Do not use floor french or wax that makes floors slippery. If [...] Control and Prevention, STEAD[place]: https://cdc.gov ? National [place] on Aging: https://jn1lskr.bryson.nih. gov Contact a doctor if: ? You are afraid of falling at home. ? You feel weak, drowsy, or dizzy at home. ? You fall at home. Summary ? There are many simple things that you can do to make yo (more content not included)... [facility] Progress Note-Physicianon Progress Note-Physician Patient: ANNE [...] BIDPC, # 60 tab(s), Refills(s) 0, Pharmacy: [facility], 170, cm, 09/18/21 6:21:00 EDT, Height/Length Dosing, 73, kg, 09/18/21 6:21:00 EDT, Weight Dosing Colace 100 mg Cap: 100 mg = 1 cap(s), Oral, BID, PRN for constipation, # 40 cap(s), Refills(s) 0, Pharmacy: [facility], 170, cm, 09/18/21 6:21:00 EDT, Height/Length Dosing, 73, kg, 09/18/21 6:21:00 EDT, Weight Dosing oxyCODONE 5 mg Tab: 5 mg = 1 tab(s), Oral, q6hr, 1-2 po q4-6 hrs prn pain Dx: M17.12, Z96.652 Duration: 7days Disregard si po q6hr prn pain, # 40 tab(s), Refills(s) 0, Pharmacy: [facility], 170, cm, 09/18/21 6:21:00 EDT, Height/Length [...] Daily, Refills( (more content not included)... [facility] Comment on above: Result Comment: Elec [...] UKA. Postoperative Diagnosis: same. Performed by: erick. 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 Specimens Removed: hardware, bone, soft tissue. Prosthesis: [place]. . Estimated Blood Loss: 0 ml. Complications: None. Anesthesia type: Spinal, add canal block. [facility] Comment on above: Result Comment: Elec [...] BIDPC, # 60 tab(s), Refills(s) 0, Pharmacy: [facility], 170, cm, 09/18/21 6:21:00 EDT, Height/Length Dosing, 73, kg, 09/18/21 6:21:00 EDT, Weight Dosing Colace 100 mg Cap: 100 mg = 1 cap(s), Oral, BID, PRN for constipation, # 40 cap(s), Refills(s) 0, Pharmacy: [facility], 170, cm, 09/18/21 6:21:00 EDT, Height/Length Dosing, 73, kg, 09/18/21 6:21:00 EDT, Weight Dosing oxyCODONE 5 mg Tab: 5 mg = 1 tab(s), Oral, q6hr, 1-2 po q4-6 hrs prn pain Dx: M17.12, Z96.652 Duration: 7days Disregard si po q6hr prn pain, # 40 tab(s), Refills(s) 0, Pharmacy: [facility] [place] [address], 170, cm, 09/18/21 6:21:00 EDT, Height/Length Dosing, [...] Oral, BID, (more content not included)... [facility] Comment on above: Result Comment: Elec tronically Signed By: Luis M Delgado CRNA.br\Date and Time Signed: 09/19/21 12:13 EDT UA With Cult Reflexon 2021 Bacteria LM Ql (Urine sed) TRACE Normal Trace [facility] Comment on above: Performed By: #### 1 [id number] #### [facility] [address] [place] [address] Bilirubin Ql (U) Negative Normal Negative [facility] Comment on above: Performed By: #### 1 [id number] #### [facility] [address] [place] [address] Clarity (U) CLEAR Normal Clear [facility] Comment on above: Performed By: #### 1 [id number] #### [facility] [address] [place] [address] Color (U) STRAW Abnormal Yellow [facility] Comment on above: Performed By: #### 1 [id number] #### [facility] [address] [place] [address] Crystals LM Ql (Urine sed) Present [facility] Comment on above: Performed By: #### 1 [id number] #### [facility] [address] [place] [address] Epithelial cells.squamous LM.HPF (Urine sed) [#/Area] 0-2 Normal 0-2 [facility] Comment on above: Performed By: #### 1 [id number] #### [facility] [address] [place] [address] Glucose Test strip (U) [Mass/Vol] Negative Normal Negative [facility] Comment on above: Performed By: #### 1 [id number] #### [facility] [address] [place] [address] Hemoglobin Ql (U) Negative Normal Negative [facility] Comment on above: Performed By: #### 1 [id number] #### [facility] [address] [place] [address] Ketones (U) [Mass/Vol] Negative Normal Negative [facility] Comment on above: Performed By: #### 1 [id number] #### [facility] [address] [place] [address] [place].plasma/Lithi um.RBC (Bld) [Mass ratio] 0-3 Normal 0-3 [facility] Comment on above: Performed By: #### 1 [id number] #### [facility] [address] [place] [address] Nitrite Ql (U) Negative Normal Negative [facility] Comment on above: Performed By: #### 1 [id number] #### [facility] [address] [place] [address] pH (U) 6.0 [pH] Invalid Interpretation Code 5.0-9.0 [facility] Comment on above: Performed By: #### 1 [id number] #### [facility] [address] [place] [address] Protein (U) [Mass/Vol] Negative Normal Negative [facility] Comment on above: Performed By: #### 1 [id number] #### [facility] [address] [place] [address] Specific gravity (U) [Rel density] 1.015 Invalid Interpretation Code 1.005-1.030 [facility] Comment on above: Performed By: #### 1 [id number] #### [facility] [address] [place] [address] Type of Urine collection method Martin [facility] Comment on above: Performed By: #### 1 [id number] #### [facility] [address] [place] [address] Urobilinogen Qn (U) 0.2 {Becca'U}/dL Normal 0.0-1.0 [facility] Comment on above: Performed By: #### 1 [id number] #### [facility] [address] [place] [address] WBC Auto Ql (U) Negative Normal Negative [facility] Comment on above: Performed By: #### 1 [id number] #### [facility] [address] [place] [address] WBC LM.HPF (Urine sed) [#/Area] 0-5 Normal 0-5 [facility] Comment on above: Performed By: #### 1 [id number] #### [facility] [address] [place] [address] URINALYSISOrdered By: Víctor starks on 09-19-2021 Bacteria [...] [Mass/Vol] Negative (09/19/21 11:50 AM) Normal Negative FT UA Auto SS [place].plasma/Lithi um.RBC (Bld) [Mass ratio] 0-3 /HPF Normal 0-3/HPF FT UA Auto SS Nitrite Ql (U) Negative (09/19/21 11:50 AM) Normal Negative FT UA Auto SS pH (U) 6.0 *NA* (09/19/21 11:50 AM) Invalid Interpretation Code 5.0 - 9.0 [facility] UA Auto SS Protein (U) [Mass/Vol] Negative (09/19/21 11:50 AM) Normal Negative [facility] UA Auto SS Specific gravity (U) [Rel density] 1.015 *NA* (09/19/21 11:50 AM) Invalid Interpretation Code 1.005 - 1.030 [facility] UA Auto SS UA Spec Desc Martin (09/19/21 11:50 AM) Normal [facility] UA Auto SS Urobilinogen Qn (U) 0.9248706 {Becca'U}/dL Normal 0.0 - 1.0 EU/dL [facility] UA Auto SS WBC Auto Ql (U) Negative (09/19/21 11:50 AM) Normal Negative [facility] UA Auto SS WBC LM.HPF (Urine sed) [#/Area] 0-5 /HPF Normal 0-5/HPF [facility] UA Auto SS XR Knee 1 or [...] M.D. Transcribed by: KAREN Technologist: NICOLLE [facility] Consent for Procedure/Surger yon 09-18-2021 Consent for Procedure/Surgery [id number] :127 [facility] XR Chest 2 Viewson XR Chest 2 Views Exam Date/Time: 09/15/2021 [...] V. Transcribed by: KAREN Technologist: FLORA [facility] ABO/Rh Retypeon 09-15-2021 ABO/Rh Retype Interp Positive Invalid Interpretation Code [facility] Comment on above: Performed By: #### 1 [id number] ####[facility] [address] [place] [id number] BLOOD BANKOrdered By: Terri Escobar on 09-15-2021 ABO/Rh Retype Interp Positive Invalid Interpretation Code [facility] BB Subsection BUNon 09-15-2021 Urea nitrogen [Mass/Vol] 15 mg/dL Normal 5-21 [facility] Comment on above: Performed By: #### 2 670918, 7073826, 26082690, 2599514, 6291456, 5216520 #### [facility] [address] [place] [address] CBC w/Indiceson 09-15-2021 Erythrocyte distribution width (RBC) [Ratio] 13.6 % Normal 10.9-14.2 [facility] Comment on above: Performed By: #### 2 035301, 1252182, 25772695, 6340110, 4756501, 0437372 #### [facility] [address] [place] [address] Hematocrit (Bld) [Volume fraction] 34.0 % Normal 34.0-46.0 [facility] Comment on above: Performed By: #### 2 788346, 6520734, 60002729, 2589708, 3340451, 3334514 #### [facility] [address] [place] [address] Hemoglobin (Bld) [Mass/Vol] 11.9 g/dL Low 12.0-16.0 [facility] Comment on above: Performed By: #### 2 499928, 4115357, 44020033, 7114694, 7279803, 5081086 #### [facility] [address] [place] [address] MCH (RBC) [Entitic mass] 31.5 pg Normal 27.0-34.0 [facility] Comment on above: Performed By: #### 2 114418, 3730315, 60549467, 8255431, 9735489, 3450102 #### [facility] [address] [place] [address] MCHC (RBC) [Mass/Vol] 35.0 g/dL Normal 31.4-36.0 [facility] Comment on above: Performed By: #### 2 200721, 0051324, 44261150, 0537050, 7855515, 7759265 #### [facility] [address] [place] [address] MCV (RBC) [Entitic vol] 89.9 fL Normal 80.0-100.0 [facility] Comment on above: Performed By: #### 2 864517, 6282605, 11152335, 3175840, 3138692, 4534549 #### [facility] [address] [place] [address] Platelet mean volume (Bld) [Entitic vol] 6.5 fL Normal 6.4-10.8 [facility] Comment on above: Performed By: #### 2 731809, 3919827, 27658074, 4126705, 7495734, 6624428 #### [facility] [address] [place] [address] Platelets (Bld) [#/Vol] 343.0 E9/L Normal 150.0-500.0 [facility] Comment on above: Performed By: #### 2 799509, 1998289, 65850489, 2062244, 9695773, 7767907 #### [facility] [address] [place] [address] RBC (Bld) [#/Vol] 3.8 E12/L Low 4.3-5.9 [facility] Comment on above: Performed By: #### 2 181676, 7985218, 15357043, 1016665, 1387630, 4728680 #### [facility] [address] [place] [address] WBC corrected for nucl RBC Auto (Bld) [#/Vol] 4.8 E9/L Normal 4.0-11.0 [facility] Comment on above: Performed By: #### 2 857175, 1166011, 30139076, 3313882, 7985610, 3567399 #### [facility] [address] [place] [address] CHEMISTRYOrdered By: SYSTEM SYSTEM on 09-15-2021 Anion gap [Moles/Vol] 11 mmol/L Normal 6 - 16 mEq/L FT Remisol Chloride [Moles/Vol] 103 mmol/L Normal 101 - 1 11 mmol/L FT Remisol CO2 [Moles/Vol] 25 mmol/L Normal 21 - 31 mmol/L FT Remisol Creatinine [Mass/Vol] 0.8 mg/dL Normal 0.5 - 1.3 mg/dL FT Remisol GFR/1.73 sq M.predicted among blacks MDRD (S/P/Bld) [Vol rate/Area] mL/min/1.73 m2 Normal >=59mL/min/ 1.73 m2 [facility] Chem S GFR/1.73 sq M.predicted among non-blacks MDRD (S/P/Bld) [Vol rate/Area] mL/min/1.73 m2 Normal >=59mL/min/ 1.73 m2 [facility] Chem S Glucose [Mass/Vol] 84 mg/dL Normal 55 - 199 mg/dL [facility] Remisol Potassium [Moles/Vol] 4.1 mmol/L Normal 3.5 - 5.3 mmol/L [facility] Remisol Sodium [Moles/Vol] 135 mmol/L Normal 135 - 145 mmol/L [facility] Remisol Urea nitrogen [Mass/Vol] 15 mg/dL Normal 5 - 21 mg/dL [facility] Remisol Consent for Treatmenton Consent for Treatment [id number]#[id number]: 127 [facility] Creatinineon 09-15-2021 Creatinine [Mass/Vol] 0.8 mg/dL Normal 0.5-1.3 [facility] Comment on above: Performed By: #### 2 148070, 1950786, 15063574, 9223678, 1611114, 6504639 ####[facility] [address] [place] [address] Glucoseon 09-15-2021 Glucose [Mass/Vol] 84 mg/dL Normal 55-199 [facility] Comment on above: Performed By: #### 2 111961, 1403988, 12575490, 3961057, 4988999, 4454278 #### [facility] [address] [place] [address] HEMATOLOGYOrdered By: Terri Escobar on 09-15-2021 Erythrocyte distribution width (RBC) [Ratio] 13.6 % Normal 10.9 - 14.2 % [facility] HemeAutoSS Hematocrit (Bld) [Volume fraction] 34.0 % Normal 34.0 - 46.0 % [facility] HemeAutoSS Hemoglobin (Bld) [Mass/Vol] 11.9 g/dL Low [...] Anion gap [Moles/Vol] 11 mmol/L Normal 6-16 [facility] Comment on above: Performed By: #### 2 255552, 7975269, 33000743, 3846069, 8827569, 2696326 ####[facility] [address] [place] [address] Chloride [Moles/Vol] 103 mmol/L Normal 101-111 [facility] Comment on above: Performed By: #### 2 243790, 3893765, 96377545, 2194359, 5918493, 2166524 ####[facility] [address] [place] [address] CO2 [Moles/Vol] 25 mmol/L Normal 21-31 [facility] Comment on above: Performed By: #### 2 918915, 6818239, 07062585, 1017595, 1564544, 5317758 ####[facility] [address] [address] Potassium [Moles/Vol] 4.1 mmol/L Normal 3.5-5.3 [facility] Comment on above: Performed By: #### 2 870581, 9705872, 72515613, 1034621, 9202168, 6431213 ####[facility] [address] [place] [address] Sodium [Moles/Vol] 135 mmol/L Normal 135-145 [facility] Comment on above: Performed By: #### 2 697144, 7687252, 96453531, 0452631, 3252094, 5787744 ####[facility] [address] [place] [address] UA With Cult Reflexon 2021 Bacteria LM Ql (Urine sed) TRACE Normal Trace [facility] Comment on above: Performed By: #### 1 0965356 ####[address] [address] Bilirubin Ql (U) Negative Normal Negative [facility] Comment on above: Performed By: #### 1 8815211 ####[facility] [address] [place] [address] Clarity (U) CLEAR Normal Clear [facility] Comment on above: Performed By: #### 1 8308068 ####[address] [address] Color (U) YELLOW Normal Yellow [facility] Comment on above: Performed By: #### 1 9250095 ####[facility] [address] [place] [address] Crystals LM Ql (Urine sed) Present Normal [facility] Comment on above: Performed By: #### 1 6003184 ####[address] [address] Epithelial cells.squamous LM.HPF (Urine sed) [#/Area] 0-2 Normal 0-2 [facility] Comment on above: Performed By: #### 1 8435033 ####[address] [address] Glucose Test strip (U) [Mass/Vol] Negative Normal Negative [facility] Comment on above: Performed By: #### 1 1411182 ####[facility] [address] [place] [address] Hemoglobin Ql (U) Negative Normal Negative [facility] Comment on above: Performed By: #### 1 [id number] ####[address] [place] [address] Ketones (U) [Mass/Vol] Negative Normal Negative [facility] Comment on above: Performed By: #### 1 [id number] ####[address] [place] [address] [place].plasma/Lithi um.RBC (Bld) [Mass ratio] 0-3 Normal 0-3 [facility] Comment on above: Performed By: #### 1 [id number] ####[address] [address] Nitrite Ql (U) Negative Normal Negative [facility] Comment on above: Performed By: #### 1 [id number] ####[address] [address] pH (U) 6.5 [pH] Invalid Interpretation Code 5.0-9.0 [facility] Comment on above: Performed By: #### 1 [id number] ####[address] [address] Protein (U) [Mass/Vol] Negative Normal Negative [facility] Comment on above: Performed By: #### 1 [id number] ####[address] [address] Specific gravity (U) [Rel density] <=1.005 Invalid Interpretation Code 1.005-1.030 [facility] Comment on above: Performed By: #### 1 [id number] ####[address] [address] Type of Urine collection method Clean Catch Normal [facility] Comment on above: Performed By: #### 1 [id number] ####[address] [address] Urobilinogen Qn (U) 0.2 {Becca'U}/dL Normal 0.0-1.0 [facility] Comment on above: Performed By: #### 1 [id number] ####[facility] [address] [place] [address] WBC Auto Ql (U) Negative Normal Negative [facility] Comment on above: Performed By: #### 1 [id number] ####[facility] [address] [place] [address] WBC LM.HPF (Urine sed) [#/Area] 0-5 Normal 0-5 [facility] Comment on above: Performed By: #### 1 [id number] ####[facility] [address] [place] [address] URINALYSISOrdered By: Colton Minor on 09-15-2021 Bacteria [...] PM) Normal Negative [facility] UA Auto SS [place].plasma/Lithi um.RBC (Bld) [Mass ratio] 0-3 /HPF Normal 0-3/HPF [facility] UA Auto SS Nitrite Ql (U) Negative (09/15/21 5:32 PM) Normal Negative [facility] UA Auto SS pH (U) 6.5 *NA* (09/15/21 5:32 PM) Invalid Interpretation Code 5.0 - 9.0 [facility] UA Auto SS Protein (U) [Mass/Vol] Negative (09/15/21 5:32 PM) Normal Negative [facility] UA Auto SS Specific gravity (U) [Rel density] <=1.005 *NA* (09/15/21 5:32 PM) Invalid Interpretation Code 1.005 - 1.030 [facility] UA Auto SS UA Spec Desc Clean Catch (09/15/21 5:32 PM) Normal [facility] UA Auto SS Urobilinogen Qn (U) 0.7617386 {Becca'U}/dL Normal 0.0 - 1.0 EU/dL [facility] UA Auto SS WBC Auto Ql (U) Negative (09/15/21 5:32 PM) Normal Negative [facility] UA Auto SS WBC LM.HPF (Urine sed) [#/Area] 0-5 /HPF Normal 0-5/HPF [facility] UA Auto SS eGFRon 09-15-2021 GFR/1.73 sq M.predicted among blacks MDRD (S/P/Bld) [Vol rate/Area] mL/min/{1.73_m2} Normal >=59 [facility] Comment on above: Order Comment: Order added by Discern Expert. Result Comment: eGFR is race adjusted. AA=. Performed By: #### 2 [id number], [id number], [id number], [id number], [id number], [id number] #### [facility] [address] [place] [address] GFR/1.73 sq M.predicted among non-blacks MDRD (S/P/Bld) [Vol rate/Area] mL/min/{1.73_m2} Normal >=59 [facility] Comment on above: Order Comment: Order added by Discern Expert. Result Comment: Consumer Marketing Specialist josesito kidney disease could be indicated at eGFR's of less than 60 mL/min/1.73m2. Kidney failure is indicated at less than 15 mL/min/1.73m2. Performed By: #### 2 [id number], [id number], [id number], [id number], [id number], [id number] #### [facility] [address] [place] [address] COVID-19 ([facility])on 09-13-2021 SARS-CoV-2 (COVID-19) RNA RANGEL+probe Ql (Resp) Not detected Normal Not Detected [facility] Comment on above: Result Comment: This test result should be correlated with clinical presentations and medical history by a healthcare provider to determine its clinical significance. This assay was performed by a reverse transcriptase real-time polymerase chain reaction (rt PCR) method on the [employer] system. This test has been authorized only [...] or revoked sooner. Performed By: #### 2 [id number] #### [facility] [address] [place] [address] SARS-CoV-2 (COVID-19) RNA RANGEL+probe Ql (Unsp spec) Pass Normal Pass [facility] Comment on above: Performed By: #### 2 [id number] #### [facility] [address] [place] [address] Specimen source Nom (Unsp spec) Nasal Normal [facility] Comment on above: Performed By: #### 2 [id number] #### [facility] [address] [place] [address] Coding Summary.on 09-13-2021 Coding Summary. CD:[id number] Gh0b Ww+PGhlYWQ+CL1DGQWiR29ap FVtiI9UK8yGZN5JXJLRLFZXL T5YMD2kePC9GSybX7MnibNu BsoylTFoYU47DDf7KJA9lQxn XLwspW5zqARvQ8v9WpGcYH55 hK94XTqgNXBiHcJ6AjQjcchp bWFy X4cqUxKcwWPmIee+PHRhYmxl IHdpZHRoPScxMDAlJyBzdHls ZF7cBj7uRULfIDDghLsaoAEd OiBj a1uuBDYiTKwqSI8luNkeR6Gn cUK2RVXlb0c5Cn89rZL+PHRk OUG8kWrdJUzgs768AkFvo3sk IDM3 cDCgEYdySHA5L64nd3Q4UFVu OADnCKW4wWB5hB0syBukobfy O0SnjMEsPhN1HNY0lRZrsQ3a bGln gkrvxU7qFrq+G74QOG7AAXXI UO0SMcr1F4WhUyewmDQ+PC90 ADTpOW05eBLbiGAey7eppKh3 JzEw WPTeMQA8iOraMQaia8WrGQDl R86yvAWto1Q2XTGqmUpocHLy NrVnkVJ1uJ8jXXegiiseu1ig dzsn Nrvrh9qqxm40zV76Q23rQIgl UDPpVSF3CXWdOXVueZdolc3y mF9jDf0+HCfdd0yzz4umcGl5 IjIw EETkorGufIaaARN4w5UsMt18 P5DmqVxhj2ApXip4ef92vHFr n0O7hHS0UYnrOIMxfX8sOCpb ZnQ6 VCKiRvEmhM37mWPvMFckQs6c eSdddQqsTF6tPRWqjnssCLLw nB3wQOHqsTUypDybOF8aEUEu bjtm v838QwGpSQW3TQQoaRNyB9Zm dM7cWaEwLHKmIDLpM3FpvEHz PGxdG451SVibRiC0WOHjmaZw Y2Fs QLTpoBmcRhN3f0F7Ps4Rm9Br nzfgVJI5NWjbCDT4WxY3TyLo EgU4Q4CbTdy3OOUpgCpjHR5w J3Bh FPXrzltracjpuES3JZShBQZx eR74vSYlUCdhLv7jq6Z9k877 WQRtIIYupU82Nn6pxYouHXGc dCBU mF4giawka2zmqnrxOqMpOEJc JTj9CHz1KXYutTuvByBiVNM9 RtH7FEB8fMSqdR2xfDgklquf dG9w Oyc+E14meR0hKSS9BLN7jcmm JDZsrcKtDU92GD09S3IlLpcb dGFibGU+TFIgcyMluOnbGJ2l YmFj m7rea2HeVUoxI0IgHFJbHMlz Nfm6RUMeXOT1eRQ5fA8zQRTg LVxia4G0aZQ6U0XktoMrsb5u b2xs UBTfNOquB41dwKPvg5V7OMFq cLM9QXZxlUocAxQkrX89Eub+ MMRxsQxxe7JiAfyhu1ceo6li dGg9 PwEuEEGqoyCbaJjcLZR1u4Kw Cw55W81dWAcqMWHhWECnWZXx CYTdcNwqgr6kdJ5gTg8+PGNv bCB3 bUW7eO8wOQSyZxJ7QEazC003 RaYzhMZiIgawv5czu2djrVy0 UlObKVJipcSxvXmtRMI4u0Xv Lz48 A79tWKzkEUHfBMAqANNgKYUc nGhhgs4dpD2pQc6+EF7kf3vn yn50yK84wMV+RAYeEKZ0zTyp PSdw RZZtaO0gHBtsAuV5ZBNwLyKa rI70xKKbASxtFu8jaBhniIsy IW6sRATbkoxqf788TbFjp2vm IDEw uTUkDKsfDZW2H87xk5Q3YRSo GELaDIW6wPY2zV3toRmmqmck bGVmdDsgdmVydGljYWwtYWxp Z246 IHRvcDsnPlBhdGllbnQgTmFt UIq0A2VuFlr9PKYyhHkzYY5a iRQpRFbuZk5qpFsurYawUW3e NTBp grrsh801OtJit0kkDYFmpFWw NVfoGTL7H45ez4N5JGDbHJCk WIY7uCL1wC2rpUvitbfyiBPl dDsg ohFcxJedPUcqXJfjI852EJNu cGjmZlPvkqWjWSRlnPL2CM92 QA56zHFnf7V9pTK2G9UkERPi bmct yejlrYZ6MZKeRMYeiY54If4r uBdwWi2wINGkZYL4FNUywBPc P5NetY8nEyPcIZHwCRXdM8Hw eHQt VNnoX576MJhkJrE1AVVkygGo B0DySPZbnUxhZjR5l5R2Dr8A I6I2MS66PU13uNEnp3V8vZV9 J3Bh ACSdduhkkyjvvDG5DJMyZDKg yR05Zv3zkVryEb9uUJVaCSK9 NZZouEZkI6XrgR2lPoOrFQHz MDAw Z2GriTZgOEigU225JEhhHiC1 LPFxzwVwP2BqZDVaxCesEaQ6 a9P4Qg7QTYq9DS25DW77vVOy c3R5 tVE1T3QqBBGuuosoazkfvOL0 XYAcRCUxsS57Ot5soEchNq7j BUJzOEA0JXSyyHLzW2IhuF7d OiAj UPBkUSMeD0IkwEErQOwvS994 PEytTgP1GYKszrAwZ6DwKCFr mYrpVqF8j1P4Mq2FZBXcPL96 IFR5 qSH3RN68EW02Y3CmTpbhbPSu bGU+PHRhYmxlIHdpZHRoPScx EQZxXqEnaVbkSI9rXr9wZUTq LWNv tIxkmQEfJjQvx0lkKJDhQOlo QA3fdVqnN4HxlEN8HEWqw3c2 Im45T28eJ0CzjNI+PGNvbCB3 aWR0 pU5aMiOmGoI4NLdjY675NkFq iNGzHlkhy0htu3swmJh6KpU3 OZAyphEjeKigNLO3t4VwSo84 Y29s IHdpZHRoPSIxNSUiIHZhbGln bm6kiW3qJw4+KQWinSS5sKT8 gB9vFpVgEtG2CRwyM951HvNz cCIv Wjbgv2tsu8exzKt9EuUcUTKi neYatDhxQSG8t7IxCq88R6Bi uWaly5QfBvm5vo92dFLah3Z9 bGU9 K8HrLWMeaentxEWbwZvlAX4u YIOjrvvtRFXcyA0uPRCcS8k3 VkKhPlF5FPsuX0GchyO9ISOc cHQg PImcZDT3G49oo1S2FCWvDQJb NCZ6jUQ8jF0ffFggehgiuGEv qKcrnjXkdQmsNYfzHYmzR378 IHRv lDmsHRBxdO6cXBQjwPVmcUls DE3jEAJktpayCp4PKWjKCOoq Ae0GSIlhrKH+VMWeVIC1eAbb PSdw WGIwqS3yQAIoI4y9SsUnPxS0 AHxcI0HzYAJdrkudGf58xS6t KmUdOsJ4BDnrD5CyyiE0MCWu cHQg LDjiBFG1R60lp9C9XBDfWWTf SAQ3vQE4jD6xsRxgkoktvVWl vSjvhoNesGjhASxcDHfjZ572 IHRv lWopMqMaWqP9YtA5XDW5X9Ul Iyz5FWNpeChjJO5wmWDnCFzd Zt9usYmvwRaaXY8mZXXgiwkj YWRk yZ9gXQCubHRevJkoBL3zHXLu qbnzk531EtChMCA0TXBdcWQi T3GukE9tFdWkYPAeKSDtP1Bn eHQt JDrrX730GNpsAwO7SSBupxTh Z2NjFEJriMmqWpN2a5H3Db98 NiBZZWFyczwvdGQ+PHRkIHN0 eWxl GSquOPSeoR6oVYWhE5n2JjJy ReP8WUxeS7RdAZDqvpilKc94 eF5nAaIhJaA0SLkcP5RofoH6 IDEw tOKaVPbcJWS8K18hx3V0JDVh RXBvLBS3iSL3yI3egMgwiteg bGVmdDsgdmVydGljYWwtYWxp Z246 IHRvcDsnPkZlbWFsZTwvdGQ+ PKJcMDO6hYyxZVzjPFWjfL4h YBYoF3a7RcYeYnZ5EVgqR0Zd ZGRp lzrcZh98qO7bMwLzYdB5RDxe R0OnzoT7DRQdeFYnILhsFVM5 E79in1A9JDNaBEXeSJD2xPH6 dC1h bGlnbjogbGVmdDsgdmVydGlj KCuyNTzhV271QHYvlJclKwYy F0AvteuuBvyymKV+LN58tr42 L3Rh NfazNyt3EJYmHSJ8tOW0kB0l MNDbPKqii1P1rDC1M3GghgRi lm2jw6llSUJdKAcfF21grMMe c2U7 TTVnoJC9AOHnbFraOkYzbW39 Oyc+SQHuxAmfh5QcEsmlj8eh p5lvwWd3AqZuEJPkidGktVfh PSJ0 o8QpGe14P37eRIbkSBRnQPGe MQDsQCDrdMefzw4whU0jJc0+ NHCqaTN1mRP2vZ8wYyKmJmY5 YWxp A507YvJaeVUjKvugz6tni6bx yHh9CjQbPRMvamKxqCzyHLU6 p4HoXh23K8AcfJvqz9RdUbn4 cj48 cBImh6S7iWN7T2BsKZXrjqqw hXTefKksFG4jVRSlszqwHLRq uJ8hXLDzA0y0IwHpTmH1DOfa O2Zv zoC8UHKtuPYaFXSvxFUTsX2u agqio5cmgtmmStOxLMYyURx1 KIi5EJLthKhuSjIvMCM2UqX5 ZXJ0 qFBqaY9syXrfgrjgwG4pSmj+ KFi4t5iooABySN3zjLZ2XP88 CD53lVOln8D5gRN8M1XwMXSj bmct fsdxpTB5XZOhXSQauO27Fy3f hOfjPk9lMCEfPHJ8MJHxgSMy B9QjeT1aMsQyMPSvFJBgS8Pj eHQt MGpjW244ORhyKtL2FZOcnlNf I8ImXBLyqBgdUsH7s9I9Fg5S PW91IE95XX69zRPfe5K5wKT9 J3Bh IERxnapuvixiyCJ1PPIcHOCg eA86Ie2mtGihKm8bOCIjNUT3 SIAaiJJiZ5TpnM8iDkFvFQAo MDAw I5ZdaQJtCBylB887HZgtCxG6 BMTouuUvL9RhEODmnNulArO5 o9A5Au4JKf80QR72DZ39pKJu c3R5 yPJ5Y9QuVYMtybqjubaafTN5 BXKsTXZpuJ26Kv5smJwoYs5j FKOcJOU2MJXaoAFgO6KbuM9k OiAj KYXwYQCgB3CyiEQoYQxiR986 YYpmLeX7EVMrtzGtJ1HiUUEy dKokFaG3b1J4Kj7VYYfcjmi5 L3Rk PjwvdHI+HK76BIMvPW77xTFy rHEnc3cygTp7DiVvEYGqMME9 iZyyWKhfd0TfYHSyP75wxIPw c2U6 IGNv (more content not included)... Normal [facility] Consent for Treatmenton Consent for Treatment [id number]: 127 Normal [facility] COVID-19 ([facility])on 09-11-2021 ADMITTED TO INTENSIVE CARE UNIT FOR CONDITION OF INTEREST:FIND:PT: NO Normal [facility] Comment on above: Performed By: #### 2 [id number] #### [facility] [address] [place] [address] EMPLOYED IN A HEALTHCARE SETTING:FIND:PT: Unknown Normal [facility] Comment on above: Performed By: #### 2 [id number] #### [facility] [address] [place] [address] FIRST TEST FOR CONDITION OF INTEREST:FIND:PT: Unknown Normal [facility] Comment on above: Performed By: #### 2 [id number] #### [facility] [address] [place] [address] HAS SYMPTOMS RELATED TO CONDITION OF INTEREST:FIND:PT: Unknown Normal [facility] Comment on above: Performed By: #### 2 [id number] #### [facility] [address] [place] [address] HOSPITALIZED FOR CONDITION OF INTEREST:FIND:PT: NO Normal [facility] Comment on above: Performed By: #### 2 [id number] #### [facility] [address] [place] [address] STATUS:FIND:PT: NO Normal [facility] Comment on above: Performed By: #### 2 [id number] #### [facility] [address] [place] [address] RESIDES IN A CONGREGATE CARE SETTING:FIND:PT: Unknown Normal [facility] Comment on above: Performed By: #### 2 [id number] #### [facility] [address] [place] [address] Physician Orderon 09-05-2021 Physician Order [id number] :127 Normal [facility] Physician Orderon 09-04-2021 Physician Order [id number]#1.00CD: 127 Normal [facility] COVID Quick Testingon 2020 Result Negative [facility] [employer] Other Mononucleosis Test, Qualon 1 07-02-2020 Heterophile Ab LA Ql (S) Negative [employer] Other XR chest 2V*on 05-02-2021 XR chest 2V* [facility] Main [place] [address] [place] [address] XRay Report Signed Patient: Anne Kemp MR#: [id number] 1 : 1955 Acct:[id number] Age/Sex: 66 / F ADM Date: 05/02/21 Loc: [id number] Room: Type: [facility] Attending Dr: Wilmer Patino PA-C Ordering Provider: [...] Granado Jr., M.D.05/02/2021 3:45 PM Dictation Location: [place] [address] Transcribed By: [facility] 05/02/21 6737 Dictated By: Arden Granado Jr, MD 05/02/21 153 Signed By: 05/02/21 1541 [facility] XR chest 2V* [facility] [employer] Other XR chest 2V* [facility] Main [facility] [employer] Other XR chest 2V* [address] [facility] [employer] Other XR chest 2V* [place] [address] [facility] [employer] Other XR chest 2V* XRay Report [place] [employer] Other XR chest 2V* Signed [employer] Other XR chest 2V* Patient: Anne Kemp MR#: [id number] [place] [employer] Other XR chest 2V* 1 [employer] Other XR chest 2V* : 1955 Acct:[id number] [place] [employer] Other XR chest 2V* Age/Sex: 66 / F ADM Date: 05/02/21 [employer] Other XR chest 2V* Loc: [id number] Room: pe: [facility] [employer] Other XR chest 2V* Attending Dr: Wilmer Patino PA-C [employer] Other XR chest 2V* Ordering Provider: Wilmer Patino [employer] Other XR chest 2V* Date of Service: 05/02/21 [employer] Other XR chest 2V* XR/XR chest 2V*: Cough [employer] Other XR chest 2V* Copies to: Wilmer Patino [employer] Other XR chest 2V* Chest 05/02/2021. [employer] Other XR chest 2V* CLINICAL DATA: Cough. N [employer] Other XR chest 2V* FINDINGS: 2 views of the chest were obtained and are compared with a prior study 10/12/2014. [employer] Other XR chest 2V* The cardiac silhouet te is normal in size. The pulmonary vasculature is within normal limits. The [employer] Other XR chest 2V* lungs demonstrate chronic-appearing interstitial changes. No pulmonary consolidation or collapse is [employer] Other XR chest 2V* identified. No pneumothorax or pleural effusion is seen. The thoracic spine demonstrates [employer] Other XR chest 2V* degenerative changes . Old rib fractures are noted on the left. [employer] Other XR chest 2V* X R/XR chest 2V* [employer] Other XR chest 2V* IMPRESSION: Chronic-appearing interstitial changes. No acute cardiopulmonary disease. [employer] Other XR chest 2V* Impression dictated by: Arden Granado Jr., M.D.05/02/2021 3:45 PM [employer] Other XR chest 2V* Dictation Location: [place] [address] [employer] Other XR chest 2V* Transcribed By: LUCILLE 05/02/21 1545 [employer] Other XR chest 2V* Dictated By: Arden Granado Jr, MD 05/02/21 1538 [employer] Other XR chest 2V* Signed By: [employer] Other XR chest 2V* 05/02/21 1545 [employer] Other C-Reactive Proteinon --2 021 C-Reactive Protein 0.7 mg/dL Normal 0.0-1.0 [facility] Comment on above: Performed By: #### P TH, CBC, CMP, [id number], ESR, CRP, URIC #### [address] Complete Blood Count Auto Di ffon 11-17-2020 Basophils (Bld) [#/Vol] 0.0 10*3/uL Normal 0.0-0.2 [facility] Comment on above: Performed By: #### P TH, CBC, CMP, [id number], ESR, CRP, URIC #### [address] Basophils/100 WBC (Bld) 0.6 % Normal . [facility] Comment on above: Performed By: #### P TH, CBC, CMP, [id number], ESR, CRP, URIC #### [address] Eosinophils (Bld) [#/Vol] 0.2 10*3/uL Normal 0.0-0.45 [facility] Comment on above: Performed By: #### P TH, CBC, CMP, [id number], ESR, CRP, URIC #### [address] Eosinophils/100 WBC (Bld) 2.8 % Normal . [facility] Comment on above: Performed By: #### P TH, CBC, CMP, [id number], ESR, CRP, URIC #### [address] Erythrocyte distribution width (RBC) [Ratio] 13.5 % Normal 11.9-15.3 [facility] Comment on above: Performed By: #### P TH, CBC, CMP, [id number], ESR, CRP, URIC #### [address] Hematocrit (Bld) [Volume fraction] 36.4 % Normal 34.0-46.4 [facility] Comment on above: Performed By: #### P TH, CBC, CMP, [id number], ESR, CRP, URIC #### [address] Hemoglobin (Bld) [Mass/Vol] 12.5 g/dL Normal 11.8-15.4 [facility] Comment on above: Performed By: #### P TH, CBC, CMP, [id number], ESR, CRP, URIC #### [address] Lymphocytes (Bld) [#/Vol] 1.9 10*3/uL Normal 1.00-4.8 [facility] Comment on above: Performed By: #### P TH, CBC, CMP, [id number], ESR, CRP, URIC #### [address] Lymphocytes/100 WBC (Bld) 33.4 % Normal . [facility] Comment on above: Performed By: #### P TH, CBC, CMP, [id number], ESR, CRP, URIC #### [address] MCH (RBC) [Entitic mass] 31.6 pg Normal 24.7-34.3 [facility] Comment on above: Performed By: #### P TH, CBC, CMP, [id number], ESR, CRP, URIC #### [address] MCV (RBC) [Entitic vol] 92.0 fL Normal 80-100 [facility] Comment on above: Performed By: #### P TH, CBC, CMP, [id number], ESR, CRP, URIC #### [address] Mean Corpuscular HGB Conc 34.3 g/dL Normal 32.0-35.0 [facility] Comment on above: Performed By: #### P TH, CBC, CMP, [id number], ESR, CRP, URIC #### [address] Monocytes (Bld) [#/Vol] 0.5 10*3/uL Normal 0.0-0.8 [facility] Comment on above: Performed By: #### P TH, CBC, CMP, [id number], ESR, CRP, URIC #### [facility] [address] Monocytes/100 WBC (Bld) 9.2 % Normal . [facility] Comment on above: Performed By: #### P TH, CBC, CMP, [id number], ESR, CRP, URIC #### [facility] [address] Neutrophils (Bld) [#/Vol] 3.1 10*3/uL Normal 1.8-7.7 [facility] Comment on above: Performed By: #### P TH, CBC, CMP, [id number], ESR, CRP, URIC #### [facility] [address] Neutrophils/100 WBC (Bld) 54.0 % Normal . [facility] Comment on above: Performed By: #### P TH, CBC, CMP, [id number], ESR, CRP, URIC #### [facility] [address] Nucleated RBC/100 WBC (Bld) [Ratio] 0.1 % Normal 0-0.5 [facility] Comment on above: Performed By: #### P TH, CBC, CMP, [id number], ESR, CRP, URIC #### [facility] [address] Platelet mean volume (Bld) [Entitic vol] 7.0 fL Normal 6.3-10.7 [facility] Comment on above: Performed By: #### P TH, CBC, CMP, [id number], ESR, CRP, URIC #### [facility] [address] [place] [address] [place] Platelets (Bld) [#/Vol] 336 10*3/uL Normal 150-450 [facility] Comment on above: Performed By: #### P TH, CBC, CMP, [id number], ESR, CRP, URIC #### [facility] [address] [place] [address] [place] RBC (Bld) [#/Vol] 3.95 10*6/uL Normal 3.60-5.00 [facility] Comment on above: Performed By: #### P TH, CBC, CMP, [id number], ESR, CRP, URIC #### [address] WBC (Bld) [#/Vol] 5.7 10*3/uL Normal 4.5-11.0 [facility] Comment on above: Performed By: #### P TH, CBC, CMP, [id number], ESR, CRP, URIC #### [address] Comprehensive Metabolic Pane mariela 11-17-2020 Albumin [Mass/Vol] 4.1 g/dL Normal 3.2-5.5 [facility] Comment on above: Performed By: #### P TH, CBC, CMP, [id number], ESR, CRP, URIC #### [address] Albumin/Globulin [Mass ratio] 1.4 {ratio} Normal [facility] Comment on above: Performed By: #### P TH, CBC, CMP, [id number], ESR, CRP, URIC #### [address] ALP [Catalytic activity/Vol] 105 U/L High 32- [facility] Comment on above: Performed By: #### P TH, CBC, CMP, [id number], ESR, CRP, URIC #### [address] ALT [Catalytic activity/Vol] 19 U/L Normal 10-60 [facility] Comment on above: Performed By: #### P TH, CBC, CMP, [id number], ESR, CRP, URIC #### [facility] [address] [place] [address] AST [Catalytic activity/Vol] 25 U/L Normal 10- [facility] Comment on above: Performed By: #### P TH, CBC, CMP, [id number], ESR, CRP, URIC #### [address] Bilirubin [Mass/Vol] 0.5 mg/dL Normal 0.3-1.2 [facility] Comment on above: Performed By: #### P TH, CBC, CMP, [id number], ESR, CRP, URIC #### [facility] [address] Calcium [Mass/Vol] 9.8 mg/dL Normal 8.2-10.2 [facility] Comment on above: Performed By: #### P TH, CBC, CMP, [id number], ESR, CRP, URIC #### [facility] [address] Chloride [Moles/Vol] 101 mmol/L Normal 95-114 [facility] Comment on above: Performed By: #### P TH, CBC, CMP, [id number], ESR, CRP, URIC #### [address] CO2 [Moles/Vol] 27.1 mmol/L Normal 22.0-30.0 [facility] Comment on above: Performed By: #### P TH, CBC, CMP, [id number], ESR, CRP, URIC #### [facility] [address] [place] [address] Creatinine [Mass/Vol] 0.61 mg/dL Normal 0.44-1.03 [facility] Comment on above: Performed By: #### P TH, CBC, CMP, [id number], ESR, CRP, URIC #### [facility] [address] [place] [address] Estimated GFR ( [place] > 60 [facility] Comment on above: Result Comment: GFR estimated reference range: According to KDOQI guidelines, <60 ml/min/1.73m2 is sufficient to diagnose a patient with chronic kidney disease. Performed By: #### P TH, CBC, CMP, [id number], ESR, CRP, URIC #### [address] Estimated GFR (Non- Am > 60 [facility] Comment on above: Performed By: #### P TH, CBC, CMP, [id number], ESR, CRP, URIC #### [facility] [address] Globulin (S) [Mass/Vol] 3.0 g/dL Normal [facility] Comment on above: Performed By: #### P TH, CBC, CMP, [id number], ESR, CRP, URIC #### [facility] [address] Glucose [Mass/Vol] 86 mg/dL Normal 70-100 [facility] Comment on above: Result Comment: [facility] Glucose Reference Range is dependent on time and content of last meal. Glucose of more than 200 mg/dL in a nonstressed, ambulatory subject supports the diagnosis of Diabetes Mellitus. ADA recommended reference range Performed By: #### P TH, CBC, CMP, [id number], ESR, CRP, URIC #### [address] Potassium [Moles/Vol] 4.9 mmol/L Normal 3.5-5.1 [facility] Comment on above: Performed By: #### P TH, CBC, CMP, [id number], ESR, CRP, URIC #### [address] Protein [Mass/Vol] 7.1 g/dL Normal 6.1-7.9 [facility] Comment on above: Performed By: #### P TH, CBC, CMP, [id number], ESR, CRP, URIC #### [address] Sodium [Moles/Vol] 137 mmol/L Normal 136-146 [facility] Comment on above: Performed By: #### P TH, CBC, CMP, [id number], ESR, CRP, URIC #### [address] Urea nitrogen [Mass/Vol] 11 mg/dL Normal 9-23 [facility] Comment on above: Performed By: #### P TH, CBC, CMP, [id number], ESR, CRP, URIC #### [place] [address] [facility] Erythrocyte Sedimentation Ra issa 11-17-2020 ESR (Bld) [Velocity] 17 mm/h Normal 0-29 [facility] Comment on above: Result Comment: PERF ORMED BY: [place] [address] PATHOLOGIST [employer] MAAME REVELES M.D. Performed By: #### P TH, CBC, CMP, [id number], ESR, CRP, URIC #### [place] [id number] [facility] Parathyroid Hormone Intacton 11-17-2020 Parathyroid Hormone Intact 44.4 pg/mL Normal 12-88 [facility] Comment on above: Result Comment: PERF ORMED BY: [place] [address] PATHOLOGIST B[employer] RUNNER MAAME REVELES M.D. Performed By: #### P TH, CBC, CMP, [id number], ESR, CRP, URIC #### [place] [id number] [facility] Uric Acidon 11-17-2020 Urate [Mass/Vol] 3.2 mg/dL Normal 2.6-7.2 [facility] Comment on above: Performed By: #### P TH, CBC, CMP, [id number], ESR, CRP, URIC #### [place] [id number] [facility] Vitamin D 25 Hydroxy Totalon 11-17-2020 Vitamin D 25 Hydroxy Total 43.7 ng/mL Normal 30-100 [facility] Comment on above: Result Comment: ANNEL MIN D STATUS 25(OH)VITAMIN D RANGE (ng/mL) Deficient <20 Insufficient 20 to <30 Sufficient 30 to 100 Reference: Agapito MF,Amina NC, Cesario KATHLEEN, et al. Evaluation,treatment, and prevention of vitamin D deficiency; an Endocrine Society clinical practice guideline. JCEM. 2010; 96(7):1911-30. Performed By: #### P TH, CBC, CMP, [id number], ESR, CRP, URIC #### [place] [id number] [facility] MR head/brain wo conon 10-14 MR head/brain wo con [facility] [address] [place] [address] MRI Report Signed Patient: Anne Kemp MR#: [id number] 1 : 1955 Acct:[id number] Age/Sex: 65 / F ADM Date: 10/14/20 [facility]: Type: [facility] CLI Attending Dr: Emily Velázquez DO Ordering Provider: [...] Granado Jr., M.D.10/14/2020 3:53 PM Dictation Location: [place] [address] Transcribed By: [facility] 10/14/20 1553 Dictated By: Arden Granado Jr, MD 10/14/20 1541 Signed By: 10/14/20 1555 [facility] ANKLE LEFT 3 [facility] 0 ANKLE LEFT 3 S [facility] Department of Radiology [address] [place] [id number] == Patient Name: ANNE KEMP : [...] AP,Lateral and Tangential views were obtained. (accession [id number]), AP,Lateral and Oblique views were obtained. (accession [id number]) COMPARISON: None FINDINGS: Soft tissues: No acute [...] ankle Electronically signed: Zeus Zee. Transcribed by: [email or web address], User Resident: Electronically Signed by: ZEUS ZEE @ 06/24/2019 01:55 PM Normal [facility] Comment on above: Order Comment: , , = ========= , Ordering Provider - DANA JI MD , KNEE LEFT 3 VWSon 06-23-2019 KNEE LEFT 3 VWS [facility] Department of Radiology [address] [place] [id number] == Patient Name: ANNE KEMP : 1955 Sex: F Age: Race: White Pt. Location: 84 Patient Status: D Ordered Date: 06/23/2019 3:00:00 PM Completed Date: 06/23/2019 03:11 PM Requesting Provider: DANA JI Attending Provider: DANA JI Report Copy To: Signs & Symptoms: M25.562 Pain in left knee I10 History: Rosalie Comments: , , , Ordering Provider - [...] AP,Lateral and Tangential views were obtained. (accession [id number]), AP,Lateral and Oblique views were obtained. (accession [id number]) COMPARISON: None FINDINGS: Soft tissues: No acute [...] ankle Electronically signed: Zeus Zee. Transcribed by: [email or web address], User Resident: Electronically Signed by: ZEUS ZEE @ 06/24/2019 01:55 PM [facility] Comment on above: Order Comment: , , = ========= , Ordering Provider - DANA JI MD , CNOVSPon 04-11-2018 CNOVSP Visit (SP) Office ([place]) Robin KEMP ([id number]) 1955 [facility] Time Provider Notyhooztv76/2/18 10:00 AM VICTORIA BURR During your visit [...] R06.00, R06.89(primary diagnosis)Albuterol trial. Will follow up [facility].2. Pulmonary nodule - ICD9: 793.11, ICD10: R91.1See Brianna Burr, MDReferring Provider: YESSY GREENE [[id number]]Allergies As of Date: 04/11/2018 Noted Allergy ReactionCODEINE [...] by VICTORIA BURR MD on 04/11/18 Normal [facility] PROGRESSon 04-11-2018 Protein mass conc HNO ID: [id number]: Victoria BurrService: (none)Author Type: PhysicianType: Progress NotesFiled: [...] R06.00,R06.89 (primary diagnosis)Albuterol trial. Will follow up [facility].2. Pulmonary nodule - ICD9: 793.11, ICD10: R91.1See Brianna Burr MD [facility] CNOVSPon 04-03-2018 CNOVSP Visit (SP) Office ([place]) Robin KEMP ([id number]) 1955 [facility] Time Provider Qbmgykgeeh84/25/18 8:30 AM VICTORIA BURR During your visit today, we recorded the following information about you: Temperature Pulse Respiration Blood pressure 99.4 degrees 81/minute 16/minute 129/76 Weight Height 69.3 kg 1.727 Jhonny Burr MD 04/03/2018 10:55 AM SignedFlor Kemp is a 63 year old female who presents in consultation today 2017. Her history [place] out west in [place] where she tripped over a treeroot in [facility] and had blunt trauma to her abdomen from [place].She lacerated her hepatic artery. She was taken [...] Smokeless tobacco: Never Used Comment: quit smoking 2015- Alcohol use NoFAMILY HISTORYProblem Relation Age of [...] playing a [facility]. [facility] We will check PFTs and I'll see her in an one week.- OXIMETRY AT REST2. Dyspnea and respiratory abnormalities - ICD9: 786.09, ICD10: R06.00, R06.89See above- OXIMETRY AT RESTKalee Guntering Provider: YESSY GREENE [[id number]]Allergies As of Date: 04/03/2018 Noted Allergy ReactionCODEINE 04/21/2007PENICILLINS 04/21/2007Date Reviewed: 04/03/2018Reviewed by: Daisha Sanchez - Fully AssessedReason for Visit: abnormal ct scan of the chest [Other] Cmt: new patient consultationPrimary Visit Diagnosis:Pulmonary nodule [R91.1] Other Visit Diagnosis:Dyspnea and respiratory abnormalities [R06.00, R06.89]Order(s):OXIMETRY AT REST [[id number]] Order #: [id number] FUTUREDisposition: Return in about 1 week (around [...] by VICTORIA BURR MD on 04/03/18 Normal [facility] PROGRESSon 04-03-2018 Protein mass conc HNO ID: [id number]: Victoria BurrService: (none)Author Type: PhysicianType: Progress NotesFiled: 04/03/2018 10:55 AMNote Text:Flor Kemp is a 63 year old female who presents in consultation todayApril 03, 2018. [place] she[place] over a [place] root in [facility] and had blunt trauma toher abdomen [place]. She lacerated her hepatic artery. She was [...] playing a role.She will be going to [place] in a few weeks. We will check PFTs and I'llsee her in an one week.- OXIMETRY AT REST2. Dyspnea and respiratory abnormalities - ICD9: 786.09, ICD10: R06.00,R06.89See above- OXIMETRY AT RESTVictoria Burr MD [facility] Vital Signs Date Time Vital Sign Value Performing Clinician Facility 12-17-2024 11:40-0400 Body mass index (BMI) [Ratio] 25.31 kg/m2 Yaritza Mueller UNIVERSITY ADMINISTRATOR Work Phone: [facility] 12-17-2024 11:40-0400 Body temperature 98.49 [degF] Yaritza Mueller UNIVERSITY ADMINISTRATOR Work Phone: [facility] 12-17-2024 11:40-0400 Body weight 74.39 kg Yaritza Mueller UNIVERSITY ADMINISTRATOR Work Phone: [facility] 12-17-2024 11:40-0400 Diastolic blood pressure 82 mm[Hg] Yaritza Mueller UNIVERSITY ADMINISTRATOR Work Phone: [facility] 12-17-2024 11:40-0400 Heart rate 63 /min Yaritza Mueller UNIVERSITY ADMINISTRATOR Work Phone: [facility] 12-17-2024 11:40-0400 Respiratory rate 18 /min Yaritza Mueller UNIVERSITY ADMINISTRATOR Work Phone: [facility] 12-17-2024 11:40-0400 SaO2% (BldA) [Mass fraction] 97 % Yaritza Mueller UNIVERSITY ADMINISTRATOR Work Phone: [facility] 12-17-2024 11:40-0400 Systolic blood pressure 126 mm[Hg] Yaritza Ervin UNIVERSITY ADMINISTRATOR Work Phone: [facility] 09-21-2021 09:59-0400 Diastolic blood pressure 87 mm[Hg] Cas Pocos [facility] 09-21-2021 09:59-0400 Heart rate 94 /min Cas Pocos [facility] 09-21-2021 09:59-0400 Systolic blood pressure 146 mm[Hg] Cas Pocos [facility] 09-21-2021 09:00-0400 Promise to Return Cas Pocos [facility] 09-21-2021 08:45-0400 Hourly Rounding Cas Pocos [facility] 09-21-2021 08:43-0400 Diastolic blood pressure 95 mm[Hg] Cas Pocos [facility] 09-21-2021 08:43-0400 Heart rate 102 /min Cas Pocos [facility] 09-21-2021 08:43-0400 Systolic blood pressure 154 mm[Hg] Cas Pocos [facility] 09-21-2021 08:00-0400 Body temperature 98.24 [degF] Cas Pocos [facility] 09-21-2021 08:00-0400 SaO2% (BldA) [Mass fraction] 98 % Cas Pocos [facility] 09-21-2021 02:20-0400 Blood Pressure Location Cas Pocos [facility] 09-21-2021 02:20-0400 BP/Pulse Patient Position Cas Pocos [facility] 09-21-2021 02:20-0400 Diastolic blood pressure 97 mm[Hg] Cas Pocos [facility] 09-21-2021 02:20-0400 Mean blood pressure 118 mm[Hg] Cas Pocos [facility] 09-21-2021 02:20-0400 Systolic blood pressure 160 mm[Hg] Cas Pocos [facility] 09-21-2021 01:02-0400 Blood Pressure Location Cas Pocos [facility] 09-21-2021 01:02-0400 BP/Pulse Patient Position Cas Pocos [facility] 09-21-2021 01:02-0400 Mean blood pressure 126 mm[Hg] Cas Pocos [facility] 09-21-2021 00:00-0400 Blood Pressure Location Cas Pocos [facility] 09-21-2021 00:00-0400 Body temperature 98.06 [degF] Cas Pocos [facility] 09-21-2021 00:00-0400 BP/Pulse Patient Position Cas Pocos [facility] 09-21-2021 00:00-0400 Heart rate 93 /min Cas Pocos [facility] 09-21-2021 00:00-0400 Mean blood pressure 127 mm[Hg] Cas Pocos [facility] 09-21-2021 00:00-0400 SaO2% (BldA) [Mass fraction] 97 % Cas Pocos [facility] 09-20-2021 20:24-0400 Heart rate 98 /min Cas Pocos [facility] 09-20-2021 19:38-0400 Body temperature 98.24 [degF] Cas Pocos [facility] 09-20-2021 19:38-0400 Heart rate 98 /min Cas Pocos [facility] 09-20-2021 19:38-0400 Mean blood pressure 122 mm[Hg] Cas Pocos [facility] 09-20-2021 19:38-0400 SaO2% (BldA) [Mass fraction] 95 % Cas Pocos [facility] 09-20-2021 19:00-0400 Respiratory rate 16 /min Cas Pocos [facility] 09-20-2021 17:30-0400 Heart rate 99 /min Cas Pocos [facility] 09-20-2021 17:30-0400 Mean blood pressure 88 mm[Hg] Cas Pocos [facility] 09-20-2021 17:30-0400 Respiratory rate 18 /min Cas Pocos [facility] 09-20-2021 08:22-0400 Mean blood pressure 98 mm[Hg] Cas Pocos [facility] 09-19-2021 13:45-0400 Body temperature 97.16 [degF] Cas Pocos [facility] 09-19-2021 13:45-0400 Respiratory rate 17 /min Cas Pocos [facility] 09-19-2021 13:35-0400 Respiratory rate 18 /min Cas Pocos [facility] 09-19-2021 13:30-0400 Respiratory rate 12 /min Cas Pocos [facility] 09-19-2021 13:19-0400 Body temperature 97.16 [degF] Cas Pocos [facility] 09-15-2021 16:51-0400 Body temperature 97.7 [degF] Cas Pocos [facility] 09-15-2021 16:51-0400 Diastolic blood pressure 88 mm[Hg] Cas Pocos [facility] 09-15-2021 16:51-0400 Heart rate 66 /min Cas Pocos [facility] 09-15-2021 16:51-0400 Mean blood pressure 108 mm[Hg] Cas Pocos [facility] 09-15-2021 16:51-0400 Respiratory rate 16 /min Cas Pocos [facility] 09-15-2021 16:51-0400 SaO2% (BldA) [Mass fraction] 98 % Cas Pocos [facility] 09-15-2021 16:51-0400 Systolic blood pressure 146 mm[Hg] Cas Pocos [facility] 09-15-2021 16:51-0400 Blood Pressure Location Cas Pocos [facility] 09-15-2021 16:50-0400 Blood Pressure Location Cas Pocos [facility] 09-15-2021 16:50-0400 Diastolic blood pressure 82 mm[Hg] Cas Pocos [facility] 09-15-2021 16:50-0400 Heart rate 69 /min Cas Pocos [facility] 09-15-2021 16:50-0400 Mean blood pressure 104 mm[Hg] Cas Pocos [facility] 09-15-2021 16:50-0400 Respiratory rate 16 /min Cas Severino [facility] 09-15-2021 16:50-0400 Systolic blood pressure 147 mm[Hg] Cas Severino [facility] 05-02-2021 15:20-0500 Body height 172.72 cm Wilmer Patino Other [employer] Other 05-02-2021 15:20-0500 Body mass index (BMI) [Ratio] 24.33 kg/m2 Wilmer Patino Other [employer] Other 05-02-2021 15:20-0500 Body temperature 98.6 [degF] Wilmer Patino Other [employer] Other 05-02-2021 15:20-0500 Body weight 72.58 kg Wilmer Patino Other [employer] Other 05-02-2021 15:20-0500 Respiratory rate 16 /min Wilmer Patino Other [employer] Other 05-02-2021 15:20-0500 SaO2% (BldA) [Mass fraction] 95 % Wilmer Patino Other [employer] Other Encounters Encounter Date Encounter Type Care Provider Facility Start: 02-04-2025 End: 02-04-2025 [facility] Start: 01-12-2025 End: 01-12-2025 Orders Only Yaritza Mueller UNIVERSITY ADMINISTRATOR Work Phone: [facility] Comment on above: Primary hypertension (Primary Dx); Chest pain in adult Start: 01-06-2025 End: 01-06-2025 Refill Yaritza Mueller UNIVERSITY ADMINISTRATOR Work Phone: [facility] Comment on above: Primary hypertension Start: 01-05-2025 End: 01-05-2025 Refill Yaritza Ervin UNIVERSITY ADMINISTRATOR Work Phone: [facility] Comment on above: Primary hypertension Start: 12-27-2024 End: 12-27-2024 Clinisync Result Encounter Yaritza Ervin UNIVERSITY ADMINISTRATOR Work Phone: [facility] Unsolicited Start: 12-27-2024 End: 12-27-2024 Clinisync Result Encounter Yaritza Amauryz UNIVERSITY ADMINISTRATOR Work Phone: [facility] Unsolicited Start: 12-23-2024 End: 12-23-2024 Clinisync Result Encounter Yaritza Dennishholz UNIVERSITY ADMINISTRATOR Work Phone: [facility] Unsolicited Start: 12-23-2024 End: 12-23-2024 Clinisync Result Encounter Yaritza Amauryz UNIVERSITY ADMINISTRATOR Work Phone: [facility] Unsolicited Start: 12-17-2024 End: 12-17-2024 Orders Only Yaritza Amauryz UNIVERSITY ADMINISTRATOR Work Phone: [facility] Comment on above: Primary hypertension (Primary Dx); Chest pain in adult; Mixed hyperlipidemia Start: 12-17-2024 End: 12-17-2024 Office outpatient visit 25 minutes Yaritza Mueller UNIVERSITY ADMINISTRATOR Work Phone: [facility] Comment on above: Chest pain in adult (Primary Dx); Primary hypertension ; Mixed hyperlipidemia ; Bipolar affective disorder, current episode mixed, current episode severity unspecified (HCC) Start: 12-14-2024 End: 12-17-2024 Telephone encounter Yaritza Ervin UNIVERSITY ADMINISTRATOR Work Phone: [facility] Start: 06-27-2023 Patient encounter procedure Yaritza Ervin UNIVERSITY ADMINISTRATOR Work Phone: [facility] Start: 11-07-2022 ambulatory DYE BOARDING MACHINE OPERATOR YARITZA DENNISHKILO Facil ity:[facility] Start: 10-25-2022 End: 10-26-2022 ambulatory DYE BOARDING MACHINE OPERATOR YARITZA AICHHOLZ Facility:[facility] Start: 07-19-2022 End: 07-20-2022 ambulatory DYE BOARDING MACHINE OPERATOR YARITZA ERVIN Facility:[facility] Start: 07-11-2022 End: 07-12-2022 ambulatory DYE BOARDING MACHINE OPERATOR YARITZA ERVIN Facility:[facility] Start: 09-19-2021 End: 09-21-2021 ambulatory DO Cas Joe Pocos Facility:[facility] Start: 09-19-2021 End: 09-21-2021 Observation Cas Joe Pocos [facility] Start: 09-15-2021 End: 09-16-2021 ambulatory DO Cas Joe Pocos Facility:[facility] Start: 09-15-2021 End: 09-15-2021 Patient encounter procedure Cas Joe Pocos [facility] Start: 09-12-2021 End: 12-12-2021 ambulatory DO Cas Joe Pocos Facility:[facility] Start: 09-04-2021 End: 12-11-2021 Preprocedural examination done Cas Joe Pocos [facility] Start: 09-04-2021 End: 12-11-2021 Recurring Cas Joe Pocos [facility] Start: 05-02-2021 End: 05-02-2021 ambulatory Wilmer Patino Other [employer] Other Start: 05-02-2021 Office outpatient vi sit 15 minutes Wilmer Patino [facility] Start: 04-11-2018 End: 04-14-2018 Patient encounter procedure VICTORIA BURR [facility] Start: 04-03-2018 End: 04-04-2018 Patient encounter procedure VICTORIA BURR [facility] Procedures Date Procedure Procedure Detail Performing Clinician Start: 12-27-2024 NM JHON PERF SPECT REST STR Yaritza Mueller UNIVERSITY ADMINISTRATOR Work Phone: Start: 12-23-2024 CA ECHO DOPPLER COMPLETE Yaritza Mueller UNIVERSITY ADMINISTRATOR Work Phone: Start: 12-04-2023 Mammography Yaritza Dennisstanley caro UNIVERSITY ADMINISTRATOR Work Phone: Start: 09-19-2021 Total knee replacement Cas Pocos Arthroplasty of knee Cas Perry ocos Cholecystectomy Cas Pocos Plan of Treatment Date Care Activity Detail Author Start: 07-04-2026 Screening for malign ant neoplasm of colon [facility] Start: 08-06-2025 Medicare Annual Well ness (AWV) Medicare Annual Wellness (AWV) [facility] Start: 12-17-2024 End: 12-17-2026 Echocardiogram 2D complete Echocardiogram 2D complete Echocardiography Routine Primary hypertension Chest pain in adult Expected: 12/17/2024 (Approximate), Expires: 12/17/[address] [facility] Comment on above: Expected: 12/17/2024 (Approximate), Expires: 12/17/2026 Start: 12-17-2024 End: 12-17-2026 NM Heart Perfusion W single state of exercise Stress test with myocardial perfusion Cardiac Nuclear Medicine Routine Primary hypertension Chest pain in adult Mixed hyperlipidemia Expected: 12/17/2024 (Approximate), Expires: 12/17/[address] [facility] Work Phone: Comment on above: Expected: 12/17/2024 (Approximate), Expires: 12/17/2026 Start: 12-03-2024 Screening for malign ant neoplasm of breast Mammogram [facility] Start: 06-27-2024 Medicare Annual Well ness (AWV) Medicare Annual Wellness (AWV) [facility] Start: 1974 Pneumococcal Vaccine : 65+ Years (1 of 2 - PCV) Pneumococcal Vaccine: 65+ Years (1 of 2 - PCV) [facility] Start: 1955 Screening for malign ant neoplasm of colon [facility] Immunizations Immunization Date Immunization Notes Care Provider Gina parikh 03-11-2014 tetanus toxoid, reduced diphtheria toxoid, and acellular pertussis vaccine, adsorbed Wilmer Patino Other [employer] Other Payers Date Payer Category Payer Self-pay 2021 Private Health Insurance [employer] [id number] 2020 Medicare MEDICARE [id number] 1959 Medicare [id number] 1959 Unknown [id number] 1955 Unknown [id number]. 727 1955 Unknown [id number]. 727 1955 Unknown [id number] [id number]. 727 1955 Unknown [id number] [id number]. 593 1955 Unknown [id number] [id number]. 593 1955 Unknown [id number] [id number]. 593 1955 Unknown [id number] [id number]. 593 1955 Unknown [id number] [id number]. 593 1955 Unknown [id number]. 1259 Social History Date Type Detail Facility Tobacco smoking status Unknown if ever sm oked [facility] [employer] Other Start: 12-17-2024 Sex Assigned At Female N [facility] [employer] Other Tobacco smoking status No Smokin g Status Entered [facility] Start: 06-27-2023 Tobacco smoking stat [facility] Ex-smoker [facility] End: 06-10-1989 History [...] Sex assigned at Not on file N [facility] Medical Equipment Procedure Code Equipment Code Equipment Origin al Text Equipment Identifier Dates FDA Start: 09-19-2021 FDA Start: 09-19-2021 FDA Start: 09-19-2021 FDA Start: 09-19-2021 FDA Start: 09-19-2021 FDA Start: 09-19-2021 FDA Start: 09-19-2021 KNEE TOTAL ARTHROPLASTY REVISION Cas Severino DO 09/19/21 Unknown Knee L FDA Start: 09-19-2021 KNEE TOTAL ARTHROPLASTY REVISION PocCas souza DO 09/19/21 Unknown Knee L FDA Start: [...] FDA Start: 09-19-2021 Clinical Notes 05-02-2021 to 02-04-2025 Telephone Encounter - Yaritza Mueller, WOLF - 12/17/2024 4:13 PM EDTTelephone Encounter - Yaritza Mueller, WOLF - 12/17/2024 4:13 PM EDMargaret Mueller NP - 12/17/2024 12:59 PM EDTPatient Instructions Note Date & Type Note Facility 02-04-2025 Note Subjective Patient ID: Anne Kemp is a 69 y.o. female who presents for left bundle branch block, Hyperlipidemia, Hypertension, Sleep Apnea, Chest Pain, CASTRO, and New Patient. Blood pressure crisis, recently at [facility] due to head and dizzy. LDL was 218 on admission. Gets episodes of really high blood pressure exhausted for a few days. High blood pressures 179/109, 177/112. 175/102. Takes BP medications A lot of [...] LBBB. Given severity of BP recommend CTA of chest to evaluate aorta, and will check urine [...] up in about 4 weeks (around 03/04/2025). [facility] 12-17-2024 Telephone encounter Note Please contact pt, I did speak with Er doctor about her case I am going to order a stress test and ECHO (US of her heart). I will fax order over to [facility] for this and they should call [...] in office in about [address] [place] [facility] 12-17-2024 Miscellaneous Notes Please contact pt, I did speak with Er doctor about her case I am going to order a stress test and ECHO (US of her heart). I will fax order over to [facility] for this and they should call [...] 2 weeks [place] documented in this encounter [facility] 12-17-2024 History of Presen t illness Narrative [...] BP. She was [place] last year in [place] due to possible stroke, it was not [...] BP. She was hospitalized last year in [place] due to possible stroke, it was not [...] is significant for CAD, hyperlipidemia, hypertension, early [place] and sudden . SUBJECTIVE: MEDICATIONS: Current Outpatient [...] go be seen documented in this encounter [facility] 12-17-2024 Instructions Yaritza Mueller NP - 12/17/2024 [...] BP. She was hospitalized last year in [place] due to possible stroke, it was not [...] this morning- 10am documented in this encounter [facility] 12-14-2024 Telephone encounter Note Anne has scheduled an appointment with you on December 17, at 3:40 pm for a possible UTI. She wants to know if you would like her to have any testing done prior to her appointment. [phone]. [facility] 12-14-2024 Miscellaneous Notes Anne has scheduled an appointment with you on December 17, at 3:40 pm for a possible UTI. She wants to know if you would like her to have any testing done prior to her appointment. [phone]. documented in this encounter [facility] 09-26-2021 Note DATE OF ADMISSION: 0 09/19/2021 [...] see the chart. Franki Lee Dictated: 09/26/2021 [id number] Transcribed: 09/26/2021 [facility] Comment on above: Result Comment: Elec [...] the physical therapy. Franki Lee Dictated: 09/21/2021 [id number] Transcribed: 09/21/2021 [facility] Comment on above: Result Comment: Elec tronically Signed By: Cas Severino DO\.br\Date and Time Signed: 09/22/21 08:13 EDT 09-21-2021 Evaluation + Plan note Extrac elroy from: Title:APSO Note Author:VICENTE WYMAN-Ashlyn MIN ate:09/21/21 1. Status post total left kn [...] made to ensure accuracy, however, inadvertently computerized medical transcriptionist mistakes may be present. Extracted from: Title:Consult [...] Note Author:Luis M Delgado CRNA Date:09/19/21 Plan [place] [employer] Anesthesiologists (ASA) physical status classification: Class II. Anesthetic Preoperative Plan Anesthesia: Regional (Spinal, adductor canal left). Anesthetic plan, risks, benefits, and alternatives discussed with the patient and/or family. Patient verbalized understanding. [facility]04-14-2022 NoteDAILY PROGRESS NOTE: 09/20/2021 HISTORY: Anne [...] have anybody athome and is really questioning correction. We did explain the indication for correction and the downside risk of correction in the setting of revision knee arthroplasty. She does inquire about aides to help her otherwise. We will have discharge planning discuss further. Franki Lee Dictated: 09/20/2021 [id number] Transcribed: 09/20/2021[facility] Hospital[facility] on [facility]:Result Comment: Electronically Signed By: Cas Severino DO\Date and Time Signed: 09/21/21 06:46 [id number] NoteReason for Consultation Medical management. History of [...] Oral, BID, PRN, Pre-arriva (more content not included)...[facility] HospitalComment on above:Result Comment: Electronically Signed By: Jewels DOMINGUEZ\.br\Date and Time Signed: 09/20/21 16:56 EDT\.br\Electronically Co-Signed By: Brijesh BARRETT MD\.br\Date and Time Co-Signed: 09/20/2216:58 [id number] Hospital Discharge instructions Patient Education 09/19/2021 19:46:32 Fall Prevention in the Home, Adult, Ioqf-ur-Zqiy Fall Prevention in the Home, Adult Falls [...] Keep items that you use often in vqpo-tn-nmnas places. Lower the shelves around your home [...] of the way. Do not use floor french or wax that makes floors slippery. If [...] for Disease Control and PreventionRAKAN: https://cdc.gov National [place] on Aging: https://bf9kjjm.bryson.nih.gov Contact a doctor if: You are afraid [...] 03/23/2010 Document Revised: 09/17/2019 Document Reviewed: 01/09/2018 [employer] Patient Education 2020 [employer]. 09/12/2021 07:12:58 Pocos - Total Knee Arthroplasty. Revised 08/01/11. (Custom) [place], [place] [facility] DISCHARGE INSTRUCTIONS TOTAL KNEE [...] will continue at home, possible with the public health assistant of Home Health Physical Therapy or [...] FOLLOW-UP OFFICE VISIT: 4 weeks postop. Cas Severino DO [facility] [address] [place] [address] Reviewed: 09-15 Revised 06/21 Follow Up Care 09/04/2021 15:44:18 With:Cas Severino Address: [address] [place] [phone] Business (1) When:10/18/2021 15:00:00 With:YARITZA MUELLER Address: [address] [place] [phone] Business (1) When: Unknown [facility]04-12-2022 NotePT Evaluation completed with an [facility] score of 16/24. Pt was able to perform bed mobility with Mod I and transfers with Min A. Pt was able to ambulate 10 feet with FWW and Min A. Will follow daily with recommendations to follow on P[facility] [id number]11-[facility] Evaluation note* Encounter Date Diagnosis Assessment [...] diseases (ICD-10 - Z20.828) Covid test negative. [place] test performed per pt request, and that was also negative. See above tx plan. Apr, Other Additional time spent conducting pre-visit phone call, screening for symptoms, instructions on social distancing, application and removal of PPE, and cleaning of examination room, equipment and supplies was preformed. Patient education given for testing methodology and results. Patient care instructions given in writting by [facility] Care At Home document. [employer] Other Evaluation + Plan note Future Appointments Appointment Date:09/19/2021 11:30:00 AM Scheduled Provider: [facility] Diagnosis Encounter for annual wellness [...] severity unspecified (HCC) documented in this encounter [facility] HealthcareEvaluation note* Diagnosis Encounter for annual wellness [...] pain in adult documented in this encounter [facility] HealthcareHistory general Narrative - Reported* Type Description Date Medical History Hypertension Medical History Hypothyroid Medical History Bipolar 1 disorder Medical History RA Medical History Arthritis Surgical History partial knee replacement Surgical History Uvulopalatopharyngoplasty Surgical History cholecystectomy Surgical History tonsillectomy and adenoidectomy Surgical History knee replacement Hospitalization History pyelonephritis 2009 [employer] Other Hospital course Narrative No data available for this section [facility] No data available for this section [facility] No data available for this section [facility] Summary Purpose Family History No Family [...] section and content) DATE CREATED AUTHOR 05/18/2018 [facility] DATE CREATED AUTHOR AUTHOR'S ORGANIZ ATION 12/31/2019 [facility] DATE CREATED AUTHOR AUTHOR'S ORGANIZ ATION 07/12/2021 [facility] DATE CREATED AUTHOR AUTHOR'S ORGANIZ ATION 03/10/2022 [facility] DATE CREATED AUTHOR AUTHOR'S ORGANIZ ATION 11/16/2022 [facility] DATE CREATED AUTHOR AUTHOR'S ORGANIZ ATION 12/21/2024 [facility] EPIC DATE CREATED AUTHOR AUTHOR'S ORGANIZ ATION 02/06/2025 [facility] REASON FOR VISIT (unrecogniz ed section and content) Reason Comments UTI Reason Onset Date Comments Med Refill 01/06/2025 Care Team (unrecognized sect ion and content) Hand Ii Blocker Relationship Specialty Start Date End Date Dashawn Cummins MD [address] [place] [phone] PCP - General Family Medicine 06/27/23 Yaritza Mueller NP [address] [place] [phone] Referring Physician Nurse Practitioner 12/26/22 Yaritza Mueller NP [address] [place] [phone] Nurse Practitioner Family Medicine 06/27/23 Hand Ii Blocker Relationship Specialty Start Date End Date Dashawn Cummins MD [address] [place] [phone] PCP - General Family Medicine 06/27/23 Yaritza Mueller NP [address] [place] [phone] Referring Physician Nurse Practitioner 12/26/22 Yaritza Mueller NP [address] [place] [phone] Nurse Practitioner Family Medicine 06/27/23 Hand Ii Blocker Relationship Specialty Start Date End Date Dashawn Cummins MD [address] [place] [phone] PCP - General Family Medicine 06/27/23 Yaritza Mueller NP [address] [place] [phone] Referring Physician Nurse Practitioner 12/26/22 Yaritza Mueller NP [address] [place] [phone] Nurse Practitioner Family Medicine 06/27/23 Hand Ii Blocker Relationship Specialty Start Date End Date Dashawn Cummins MD [address] [place] [phone] PCP - General Family Medicine 06/27/23 Yaritza Mueller NP [address] [place] [phone] Referring Physician Nurse Practitioner 12/26/22 Yaritza Mueller NP [address] [place] [phone] Nurse Practitioner Family Medicine 06/27/23 Hand Ii Blocker Relationship Specialty Start Date End Date Dashawn Cummins MD [address] [place] [phone] PCP - General Family Medicine 06/27/23 Yaritza Mueller NP [address] [place] [phone] Referring Physician Nurse Practitioner 12/26/22 Yaritza Mueller NP [address] [place] [phone] Nurse Practitioner Family Medicine 06/27/23 Hand Ii Blocker Relationship Specialty Start Date End Date Dashawn Cummins MD [address] [place] [phone] PCP - General Family Medicine 06/27/23 Yaritza Mueller NP [address] [place] [phone] Referring Physician Nurse Practitioner 12/26/22 Yaritza Mueller NP [address] [place] [phone] Nurse Practitioner Family Medicine 06/27/23 Hand Ii Blocker Relationship Specialty Start Date End Date Dashawn Cummins MD [address] [place] [phone] PCP - General Family Medicine 06/27/23 Yaritza Mueller NP [address] [place] [phone] Referring Physician Nurse Practitioner 12/26/22 Yaritza Mueller NP [address] [place] [phone] Nurse Practitioner Family Medicine 06/27/23 FOR RECORDS [...] BE BASED ON THE PRIMARY CLINICAL RECORDS. [facility]. provides no warranty or guarantee of the accuracy or completeness of information in this document.
== END 2025-02-09 13:14 | disposition home or self-care (01) ==
LOC: LAB 13:13
PROVIDERS: PCP Nurse Practitioner; Visit Provider Internal Medicine Cardiovascular Disease
DX: R07.89 Other chest pain (principal); I11.9 Hypertensive heart disease without heart failure
CPT/HCPCS: 36415; 71275; 82565; Q9967